=== PATIENT | female | born 1940 | race Caucasian/White ===

== ENCOUNTER 2023-10-26 09:46 | Inpatient (IN) | payer OTHER ==
--- OUTSIDE RECORDS SUMMARY | 2023-10-26 10:06 | XMS REPORT | Continuity of Care Document ---
Author Name Unknown Address [address] [facility] [address] [place] [address] [facility] Address [address] [facility] [address] [place] [address] Care Team Providers Care Laydown Machine Operator Name Role Phone Mimi Blakely MD Primary Care Physician + [phone] MATTHEW CANCINO Attending Clinician Angela JACOB Silva Attending Clinician Unavaila JOE Alonso Attending Clinician UnaLLOYD Wolf RP Attending Clinician Unavailable Mita Ngo LCSW Attending Clinician [phone] Mimi Blakely MD Attending Clinician [phone] JM ESPINAL Attending Clinician Unavailable JM ESPINAL Attending Clinician Unavailable Gibran Chappell MD Attending Clinician +[phone] MIMI BLAKELY Attending Clinician Unavailable SAMMY TRIPP Attending Clinician Unavaila Graciela Aragon Attending Clinician Unavailab LYNSEY Martinez Attending Clinician Unavailable Lynsey Bell MD Attending Clinician [phone] Lloyd Loza MD, Rp Attending Clinician [phone] TOMAS MARTIN Attending Clinician Unavailab Tomas Smith DO Attending Clinician +[phone] Fellow, Pulmonary Attending Clinician UnavailDelbert Buchanan MD Attending Clinician [phone] DELBERT TAYLOR Attending Clinician Unava ilable Doctor Unassigned, [place] Attending Clinician U yuval Simpson MD, Cat Attending Clinician [phone] CIELO KONG Attending Clinician Unavail able Dilan OLSON, Cielo Camargo Attending Clinician [phone] Joe Bird Attending Clinician [phone] Greg Jimenez MD Attending Clinician [phone] GREG JIMENEZ Attending Clinician Unavailable ABNER OTERO Attending Clinician Unavailable Moshe RT, Carmen C Attending Clinician Unavailab damon Otero MD, Abner Attending Clinician [phone] Pcp-Lab Attending Clinician Unavailable Tomasa DIAZ, Rukhsana Attending Clinician [phone] Elissa Handy Attending Clinician [phone] SAMUEL BREEN Attending Clinician Unavailable Samuel Breen MD Attending Clinician +[phone] MICHAEL NUNEZ Attending Clinician Unavailable Michael Winston Attending Clinician [phone] ARIANNE CHAPPELL Attending Clinician Unavailable Helen Deutsch MA Attending Clinician Unavaila lashell Testing, [facility] Pulmonary Function Attending Clinic felix Dorman RN, Caemlia Ellsworth Attending Clinician Unavailab Laith Patel DO Attending Clinician [phone] Elidia Solomon DO Attending Clinician +[phone] RUKHSANA RANDOLPH Attending Clinician Unavailable QUINN DAMON Attending Clinician Unavailab Arianne Mcdaniel Attending Clinician +[phone] Sammy Tripp MD Attending Clinician + [phone] Quinn Damon MD Attending Clinician [phone] Roxana Lezama Attending Clinician +[phone] ROXANA IQBAL Attending Clinician Unavailable SONYA QUICK Attending Clinician Unavaila Milo Evans MD Attending Clinician [phone] Nikhil Juarez MD Attending Clinician [phone] NIKHIL JUAREZ Attending Clinician Unavailab ELISSA Acosta Attending Clinician Unavailable Sonia OLSON, Nazario Ramsey Attending Clinician [phone] Zahira MAURER, Agatha Paul Attending Clinician Unavail able John OLSON, Geetha Attending Clinician Unavailable FARHAT YBARRA Attending Clinician Unavailable Allen OLSON, Devante Attending Clinician [phone] Farhat Ybarra MD Attending Clinician +[phone] Carlos SUN, Stacia Garcia Attending Clinician Unava ilable NICOLE DAWSON Attending Clinician Unavailbill Dawson MD, Nicole Attending Clinician + [phone] MARCY WILLETT Attending Clinician Unavailbill Chappell FLOOR POLISHER, Linda Attending Clinician [phone] LINDA CHAPPELL Attending Clinician Unavailable Only, Pcp Test Attending Clinician Unavailable Karey OLSON, Ronen Driver Attending Clinician + [phone] RONEN EDNE Attending Clinician Unavailable [facility]-Lab Attending Clinician Unavailable Vls-Lab Attending Clinician Unavailable Jacob Mao MD Attending Clinician [phone] Lilia Palacio Attending Clinician [phone] Nguyen OLSON, Sonya Cortez Attending Clinician [phone] Marcy Long MD Attending Clinician Unav ailable 2, Lilo Mda Procedure Rm Attending Clinician Unav ailable Anatoly Ramos MD Attending Clinician + [phone] JORGE FERRARI Attending Clinician Unavail able Barak OLSON, Matthew Hurtado Attending Clinician Camelia Montez RN Attending Clinician Unavaila ble ANATOLY RAMOS Attending Clinician UnavailTONA Staley JR Attending Clinician Unavaila ble Faculty, Vascular Surg Attending Clinician Unava ilable 1, [facility] Oncology Linac Attending Clinician Un available Nacho OLSON, Holden Attending Clinician [phone], [facility] Adult Infusion Nurse Attending Clinician Unavailable Mi Henson Attending Clinician +[phone] Helen Ortiz MD Attending Clinician [phone] Nurse, [facility] Infusion Attending Clinician Unavaila ble Only, [facility] Test Attending Clinician Unavailable Sharda Becerra RNnifer S. Attending Clinician Unav Graciela Ram Attending Clinician Unavailbill dos santos Physics, halfway Rad Onc Attending Clinician Unavail able Unknown, Attending Attending Clinician Unavailab Jorge Lo DO Attending Clinician [phone] Kaylyn Manriquez MD Attending Clinician +[phone] KAYLYN MANRIQUEZ Attending Clinician Unavailable Martell Fontenot MD Attending Clinician [phone] Kamlesh Duncan MD Attending Clinician +[phone] Fercho Vivas MD Attending Clinician [phone], [facility] Adult Infusion Nurse Attending Clinician Unavailable [facility], [facility] Lab Main Attending Clinician UnavailJesse Paz MD Attending Clinician Unavailab KAMLESH Vázquez Attending Clinician Unavailable UNKNOWN, ATTENDING Attending Clinician Unavailab Mia Garcia MD Attending Clinician +[phone] MIA SALAZAR Attending Clinician Unavailable ANASTASIA NUNEZ Attending Clinician Unavailable Tuan Jordan MD Attending Clinician +[phone] Anastasia Nunez MD Attending Clinician +[phone] , [facility] Surg Spec Procedure Attending Clinician Unavailable PRACHI BERG Attending Clinician Unavailable Prachi Sargent Attending Clinician [phone] Tara Richards MD Attending Clinician +[phone] VIVIANA FITZPATRICK Attending Clinician Unava ilable Viviana Fitzpatrick MD Attending Clinician +[phone] Raffi Brewer MD Attending Clinician +[phone] RAFFI BREWER Attending Clinician UnavailCarlton Stephenson MD Attending Clinician +[phone] ALESSANDRO CARBAJAL Attending Clinician UnavaMATTHEW Figueredo Admitting Clinician Angela JACOB Silva Admitting Clinician Unavaila TOMAS Aviles Admitting Clinician Unavailab SAMUEL Escobedo Admitting Clinician Unavailable Samuel Breen MD Admitting Clinician [phone] JM ESPINAL Admitting Clinician Unavailable Elidia Solomon DO Admitting Clinician ELIDIA SOLOMON Admitting Clinician Unavailable DEVANTE VILLA Admitting Clinician Unavailable Devante Villa MD Admitting Clinician DAGO ELOLidia EDDY Admitting Clinician Unavailable NICOLE DAWSON Admitting Clinician Unavailabl e Nicole Dawson MD Admitting Clinician LINDA CHAPPELL Admitting Clinician Unavailable Jacob Mao MD Admitting Clinician +[phone] PRACHI BERG Admitting Clinician Unavailable NIKHIL JUAREZ Admitting Clinician Unavailab RAFFI Pearce Admitting Clinician Unavailabl e Payers Payer Name Policy Type Policy Number Effective Date Expirati on Date Source [employer] [id number] 2011 00:00:00 Problems Condition Name Condition Details Condition Category Status Onset Date Resolution Date Last Treatment Date Treating Clinician Comments Source Abnormal stress echo Abnormal stress echo Disease Active 2022-05 0- 00:00: 00 [facility] Tachycardi a Tachycardi a Disease Active 11-08 00:00: 00 [facility] Intraventr icular conduction defect Intraventr icular conduction defect Disease Active 11-08 00:00: 00 [facility] Other hyperlipid emia Other hyperlipid emia Disease Active 7 00:00: 00 [facility] Acute on chronic respirator y failure with hypoxia Acute on chronic respirator y failure with hypoxia Disease Active 11-01 00:00: 00 [facility] Acute respirator y failure with hypoxia Acute respirator y failure with hypoxia Disease Active 2- 00:00: 00 [facility] Primary hypertensi on Primary hypertensi on Disease Active 2021-05- 00:00: 00 [facility] 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 Added automatic ally from request for surgery [id number] [facility] Total, mature age-relate d cataract Total, mature age-relate d cataract Disease Active 10-01 00:00: 00 Overview: Formattin g of this note might be different from the original. Added automatic ally from request for surgery [id number] [facility] Urothelial carcinoma of bladder Urothelial carcinoma of bladder Disease Active 2019-05 1-10 00:00: 00 Overview: Formattin g of this note might be different from the original. 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 Disease Active 01-27 00:00: 00 [facility] Long-term use of high-risk medication Long-term use of high-risk medication Disease Active 01-27 00:00: 00 [facility] Therapeuti c drug monitoring Therapeuti c drug monitoring Disease Active 2014-05 0 00:00: 00 [facility] Pain, joint, multiple sites Pain, joint, multiple sites Disease Active 2014-05 0 00:00: 00 [facility] PAD (periphera l artery disease) PAD (periphera l artery disease) Disease Active 01-07 00:00: 00 [facility] Skin lesions Skin lesions Disease Active 09-05 00:00: 00 [facility] Difficulty with activities of daily living Difficulty with activities of daily living Disease Active 06-06 00:00: 00 [facility] Limitation of joint motion of wrist, left Limitation of joint motion of wrist, left Disease Active 06-06 00:00: 00 [facility] Wrist swelling, left Wrist swelling, left Disease Active 06-06 00:00: 00 [facility] DRUJ (distal radioulnar joint) arthrosis, primary, left DRUJ (distal radioulnar joint) arthrosis, primary, left Disease Active 06-06 00:00: 00 [facility] Chronic wrist pain, left Chronic wrist pain, left Disease Active 06-06 00:00: 00 [facility] Tobacco use Tobacco use Disease Active 05-03 00:00: 00 [facility] 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 Disease Active 2013-05 00:00: 00 [facility] Senile nuclear sclerosis, bilateral Senile nuclear sclerosis, bilateral Disease Active 2013-05 00:00: 00 [facility] Maculopath y Maculopath y Disease Active 2013-05 00:00: 00 [facility] 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, dry, 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, dry, both eyes Disease Active 2013-05 00:00: 00 [facility] Family history of autoimmune disorder Family history of autoimmune disorder Disease Active 12-25 00:00: 00 [facility] History of gout History of gout Disease Active 12-25 00:00: 00 [facility] NICK positive NICK positive Disease Active 12-25 00:00: 00 [facility] Iron deficiency anemia, unspecifie d Iron deficiency anemia, unspecifie d Disease Active [facility] Rheumatoid arthritis Rheumatoid arthritis Disease Resolve d 2013-05 00:00: 00 2017-01-27 00:00:00 2021-11-15 00:32:56 [facility] Inflammato ry arthritis Inflammato ry arthritis Disease Resolve d 12-25 00:00: 00 2017-01-27 00:00:00 2017-01-27 10:51:48 [facility] Polyarticu lar arthritis Polyarticu lar arthritis Disease Resolve d 12-25 00:00: 00 2017-01-27 00:00:00 2017-01-27 10:52:28 [facility] Long-term use of Plaquenil Long-term use of Plaquenil Disease Resolve d 2013-05 00:00: 00 2014-09-05 00:00:00 2014-09-05 11:21:32 [facility] Allergies, Adverse Reactions, Alerts Allergy Name Allergy Type Status Severity Reaction(s) Onset Date Inactive Date Treating Clinician Comments Source HYDROXYC HLOROQUI NE DRUG INGREDI Active Other-Cmnt 05-12 00:00: 00 [facility] Hydroxyc hloroqui ne Propensi ty to adverse reaction s Active Other - See comments 05-12 00:00: 00 Ophthalmo logist has recommend ed against Hydroxych loroquine . [facility] Sulfa (Sulfona mide Antibiot ics) Propensi ty to adverse reaction s Active Rash 12-25 00:00: 00 [facility] SULFA (SULFONA MIDE ANTIBIOT ICS) Drug Class Active Rash 12-25 00:00: 00 [facility] CODEINE DRUG INGREDI Active Other-Cmnt 12-03 00:00: 00 [facility] Codeine Propensi ty to adverse reaction s Active Other - See comments 2014-0 8- 00:00: 00 headaches [facility] Social History Social Habit Start Date Stop Date Quantity Comments Source History SDOH Social Connections Get Together [facility] History SDOH Social Connections [facility] SDOH Social Connections Membership [facility] History SDOH Social Connections Meetings [facility] Gender identity [facility] Sexual [facility] Alcoholic beverage intake 2023-08-11 00:00:00 2023-08-11 00:00:00 0 /d [facility] Alcohol intake 2023-08-11 00:00:00 2023-08-11 00:00:00 0 /d [facility] History of Social function 2023-06-07 00:00:00 2023-06-07 00:00:00 [facility] History SDOH Social Connections Phone 2022-11-04 00:00:00 2022-11-04 00:00:00 1 [facility] History SDOH Social Connections Living 2022-11-04 00:00:00 2022-11-04 00:00:00 8 [facility] History SDOH Physical Activity DPW 2022-11-04 00:00:00 2022-11-04 00:00:00 0 [facility] History SDOH Physical Activity MPS 2022-11-04 00:00:00 2022-11-04 00:00:00 0 [facility] History SDOH Financial 2022-11-04 00:00:00 2022-11-04 00:00:00 5 [facility] History SDOH Food Worry 2022-11-04 00:00:00 2022-11-04 00:00:00 1 [facility] History SDOH Food Scarcity 2022-11-04 00:00:00 2022-11-04 00:00:00 1 [facility] History SDOH Transport Med 2022-11-04 00:00:00 2022-11-04 00:00:00 2 [facility] History SDOH Transport Non-Med 2022-11-04 00:00:00 2022-11-04 00:00:00 2 [facility] History SDOH Housing Unable to Pay 2022-11-04 00:00:00 2022-11-04 00:00:00 2 [facility] History SDOH Housing Places Lived 2022-11-04 00:00:00 2022-11-04 00:00:00 1 [facility] History SDOH Housing Homeless Last Year 2022-11-04 00:00:00 2022-11-04 00:00:00 2 [facility] History SDOH Alcohol Frequency 2022-11-04 00:00:00 2022-11-04 00:00:00 1 [facility] Cigarettes smoked current (pack per day) - Reported 2022-11-03 00:00:00 2022-11-03 00:00:00 [facility] Cigarette pack-years 2022-11-03 00:00:00 2022-11-03 00:00:00 [facility] Tobacco use and exposure 2022-11-03 00:00:00 2022-11-03 00:00:00 Smokeless tobacco non-user [facility] Exposure to SARS-CoV-2 (event) 2022-08-23 00:00:00 2022-09-02 13:02:00 Not sure [facility] History SDOH Alcohol Std Drinks 2022-06-10 00:00:00 2022-06-10 00:00:00 0 [facility] History SDOH Alcohol Binge 2022-06-10 00:00:00 2022-06-10 00:00:00 1 [facility] Tobacco Comment 2022-06-09 00:00:00 2022-06-09 00:00:00 Periodic non-smoker, last cigarette 3 days ago. [facility] Alcohol Comment 2019-11-27 00:00:00 2019-11-27 00:00:00 social drinking [facility] History of tobacco use 1969-08-22 00:00:00 2019-08-23 00:00:00 Cigarette Smoker [facility] Sex assigned at 1940 00:00:00 1940 00:00:00 [facility] Smoking Status Start Date Stop Date Source Ex-smoker 2022-11-03 00:00:00 2022-11-03 00:00:00 [facility] Occasional tobacco smoker 2020-07-02 00:00:00 [facility] Smokes tobacco daily 2019-10-25 00:00:00 [facility] Medications Ordered Medication Name Filled Medication Name Start Date Stop Date Current Medication? Ordering Clinician Indication Dosage Frequency Signature (SIG) Comments Components Source levoFLOXaci n 500 mg tablet 10-17 00:00: 00 Yes 500mg Take 1 tablet by mouth every 24 (twenty-fo ur) hours. [facility] cephALEXin 500 mg capsule 10-12 00:00: 00 10-17 00:00 :00 No 500mg Take 1 capsule by mouth in the morning and 1 capsule at noon and 1 capsule in the evening. Do all this for 7 days. [facility] busPIRone 10 mg tablet 10-02 00:00: 00 Yes [id number] 20mg Take 2 tablets by mouth in the morning and 2 tablets at noon and 2 tablets in the evening. [facility] ipratropium -albuteroL (DUONEB) 0.5 mg-3 mg(2.5 mg base)/3 mL nebulizer solution 3 mL 09-06 21:00: 00 09-06 20:08 :00 No 3mL 3 mL, Inhalation , ONCE, 1 dose, On Tue09/07/23 at 1600, Routine [facility] BUSPIRONE 10 mg tablet 09-04 00:00: 00 10-02 00:00 :00 No [id number] TAKE 1 TABLET BY MOUTH 3 TIMES A DAY NEEDED FOR ANXIETY/PA JAYLEN ATTACK [facility] albuterol 90 mcg/actuati on inhaler 08-21 00:00: 00 Yes [id number] 2{puff} Inhale 2 Puffs every 4 (four) hours as needed for Wheezing or Shortness of Breath. [facility] tetrahydroz oline 0.05 % ophthalmic solution 08-10 14:05: 31 Yes 1[drp] Take 1 Drop in the morning and 1 Drop in the evening. [facility] VIT A/VIT C/VIT E/ZINC/NAHUM ER (ICAPS AREDS ORAL) 08-10 14:05: 15 Yes Take by mouth daily. [facility] SERTraline 100 mg tablet 08-10 00:00: 00 Yes [id number] 150mg Take 1.5 tablets by mouth in the morning. [facility] BUSPIRONE 10 mg tablet 08-07 00:00: 00 Yes [id number] TAKE 1 TABLET BY MOUTH 3 TIMES A DAY NEEDED FOR ANXIETY/PA JAYLEN ATTACK [facility] VIT A/VIT C/VIT E/ZINC/NAHUM ER (ICAPS AREDS ORAL) 08-04 10:28: 47 Yes Take by mouth daily. [facility] tetrahydroz oline 0.05 % ophthalmic solution 08-04 10:28: 47 Yes 1[drp] Take 1 Drop in the morning and 1 Drop in the evening. [facility] albuterol 2.5 mg/0.5 mL nebulizer solution 08-04 00:00: 00 Yes [id number] 2.5mg Inhale 0.5 mL every 6 (six) hours as needed for Wheezing. [facility] VIT A/VIT C/VIT E/ZINC/NAHUM ER (ICAPS AREDS ORAL) 07-14 10:39: 46 Yes Take by mouth daily. [facility] tetrahydroz oline 0.05 % ophthalmic solution 07-14 10:39: 46 Yes 1[drp] Take 1 Drop in the morning and 1 Drop in the evening. [facility] busPIRone 10 mg tablet 15 00:00: 00 08-07 00:00 :00 No [id number] 10mg Take 1 tablet by mouth 3 (three) times daily as needed (Anxiety/p anic attack). [facility] BUSPIRONE 5 mg tablet 223 00:00: 00 07-14 00:00 :00 No [id number] TAKE ONE TABLET BY MOUTH 3 (THREE) TIMES DAILY NEEDED ( ANXIETY ATTACK) [facility] SERTraline 100 mg tablet 06-13 00:00: 00 08-10 00:00 :00 No [id number] 100mg Take 1 tablet by mouth in the morning. [facility] ipratropium -albuteroL (DUONEB) 0.5 mg-3 mg(2.5 mg base)/3 mL nebulizer solution 3 mL 06-10 18:00: 00 Yes 3mL 3 mL, Inhalation , QID, First dose on Tue06/10/23 at 1200, Until Discontinu ed, Routine [facility] hydrOXYzine (ATARAX) tablet 25 mg 06-10 18:00: 00 06-10 18:19 :00 No 25mg 25 mg, Oral, ONCE, 1 dose, On Tue06/10/23 at 1200, ANH [facility] leflunomide (ARAVA) 20 mg tablet 06-10 00:00: 00 Yes [id number] 20mg Take 1 tablet by mouth in the morning. [facility] VIT A/VIT C/VIT E/ZINC/NAHUM ER (ICAPS AREDS ORAL) 06-07 11:02: 10 Yes Take by mouth daily. [facility] atorvastati n 40 mg tablet 06-03 00:00: 00 Yes TAKE ONE TABLET BY MOUTH AT BEDTIME [facility] famotidine 20 mg tablet 05-27 00:00: 00 Yes [id number] 20mg Take 1 tablet by mouth in the morning. [facility] busPIRone 5 mg tablet 05-27 00:00: 00 06-24 00:00 :00 No [id number] 5mg Take 1 tablet by mouth 3 (three) times daily as needed (anxiety attack). [facility] meloxicam 7.5 mg tablet 05-24 00:00: 00 09-21 04:59 :00 No [id number] 9105 7.5mg Take 1 tablet by mouth once daily as needed for Pain (scale 7-10) or Pain (scale 4-6) for up to 120 days. [facility] metoprolol tartrate 100 mg tablet 2022-05 00:00: 00 Yes TAKE ONE TABLET BY MOUTH EVERY MORNING AND ONE IN THE EVENING [facility] VIT A/VIT C/VIT E/ZINC/NAHUM ER (ICAPS AREDS ORAL) 2022-05 10:54: 26 Yes Take by mouth daily. [facility] tetrahydroz oline 0.05 % ophthalmic solution 2022-05 10:54: 20 Yes 1[drp] Take 1 Drop in the morning and 1 Drop in the evening. [facility] SERTraline 100 mg tablet 2022-05 00:00: 00 06-13 00:00 :00 No [id number] 100mg Take 1 tablet by mouth in the morning. [facility] aflibercept (EYLEA) intravitrea l syringe 2 mg 2022-05 17:03: 00 03-07 17:03 :00 No [id number] 2mg 2 mg, Intravitre al, ONCE PRN, 1 dose, Starting on Tue03/07/23 at 1103, Until Tue03/07/23 at 1103, Routine [facility] albuterol (PROVENTIL) 2.5 mg /3 mL (0.083 %) nebulizer solution 2.5 mg 2022-05 01:00: 00 Yes 2.5mg 2.5 mg, Inhalation , QID, First dose on Tue02/15/23 at 1999, Until Discontinu ed, Routine [facility] ipratropium (ATROVENT) 0.02 % nebulizer solution 0.5 mg 2022-05 01:00: 00 Yes .5mg 0.5 mg, Inhalation , QID, First dose on Tue02/15/23 at 1999, Until Discontinu ed, Routine [facility] ipratropium -albuteroL (DUONEB) 0.5 mg-3 mg(2.5 mg base)/3 mL nebulizer solution 3 mL 2022-05 22:30: 00 02-15 21:31 :00 No 3mL 3 mL, Inhalation , ONCE, 1 dose, On Tue02/15/23 at 1730, Routine [facility] acetaminoph en (TYLENOL) tablet 650 mg 2022-05 18:16: 31 Yes [id number] 650mg 650 mg, Oral, Q6HPRN, Starting on Tue02/15/23 at 1316, Until Discontinu ed, Routine, Pain (scale 1-3) [facility] VIT A/VIT C/VIT E/ZINC/NAHUM ER (ICAPS AREDS ORAL) 2022-05 17:01: 00 Yes Take by mouth daily. [facility] tetrahydroz oline 0.05 % ophthalmic solution 2022-05 17:01: 00 Yes 1[drp] Take 1 Drop in the morning and 1 Drop in the evening. [facility] iopamidol (ISOVUE 370-500 mL) injection 2022-05 16:45: 55 02-15 17:05 :37 No ONCE INTRA PROCEDURE, Starting on Tue02/15/23 at 1145, Until Tue02/15/23 at 1205, Routine, CV Intraproce dure [facility] hydralAZINE (APRESOLINE ) injection 2022-05 16:30: 57 02-15 17:05 :37 No ONCE INTRA PROCEDURE, Starting on Tue02/15/23 at 1130, Until Tue02/15/23 at 1205, STAT, CV Intraproce dure [facility] lidocaine 1% (PF) (XYLOCAINE) injection 2022-05 15:58: 44 02-15 17:05 :37 No ONCE INTRA PROCEDURE, Starting on Tue02/15/23 at 1058, Until Tue02/15/23 at 1205, Routine, CV Intraproce dure [facility] midazolam (VERSED) injection 2022-05 15:53: 30 02-15 17:05 :37 No ONCE INTRA PROCEDURE, Starting on Tue02/15/23 at 1053, Until Tue02/15/23 at 1205, Routine, CV Intraproce dure [facility] FENTanyl PF (SUBLIMAZE (PF)) injection 2022-05 15:53: 20 02-15 17:05 :37 No ONCE INTRA PROCEDURE, Starting on Tue02/15/23 at 1053, Until Tue02/15/23 at 1205, Routine, CV Intraproce dure [facility] aspirin chewable tablet 81 mg 2022-05 13:30: 00 02-15 12:44 :00 No [id number] 81mg 81 mg, Oral, ONCE, 1 dose, On Tue02/15/23 at 0830, ANH [facility] ipratropium 17 mcg/actuati on inhaler 2022-05 00:00: 00 Yes [id number] 2{puff} Inhale 2 Puffs 4 (four) times daily. [facility] NaCl 0.9% (NS) IV infusion 250 mL 01-25 17:30: 00 Yes [id number] 250mL at 50 mL/hr, IV Infusion, CONTINUOUS , Starting on Tue01/25/23 at 1230, Until Discontinu ed, Routine
To keep vein open
[facility] metoprolol (LOPRESSOR) injection 5 mg 01-25 17:15: 00 01-25 17:00 :00 No [id number] 5mg 5 mg, Slow IV Push, ONCE, 1 dose, On Tue01/25/23 at 1215, Routine [facility] DOBUTamine (DOBUTREX) 250 mg/250 mL RTU infusion 01-25 16:28: 38 Yes [id number] 5ug/kg/ min 5 mcg/kg/min ?59.9 kg (17.97 mL/hr), IV Infusion, TITRATE, MAP Goal > or = 65 mmHg, Titrate per admin instructio ns, Starting on Tue01/25/23 at 1128
No te and document the precise time that this is 3. ac complished . Begin the count with the EKG system's DSE applicatio n program. This is time zero.&nbsp ; At 2 minutes and 30 seconds after beginning the initial dosing, acquire parasterna l long axis and parasterna l short axis view at papillary level, apical 4 chamber, 2 chamber and apical long axis view, and BP At the 3 minute interval, simultaneo usly obtain a 12 lead EKG, heart rate and 02 saturation and increase the Dobutamine infusion to 10 mcg/kg/min . At the 5 minutes and 30 second interval, acquire parasterna l long axis and parasterna l short&nbsp ;axis view at papillary level, apical 4 chamber, 2 chamber and apical long axis view and measure BP. At the 6 minute interval, simultaneo usly obtain a 12 lead EKG, heart rate and 02saturati on an d increase the Dobutamine infusion to 20 mcg/kg/min . At the 8 minutes and 30 second interval, acquire parasterna l long axis and parasterna l short&nbsp ;axis view at papillary level, apical 4 chamber, 2 chamber and apical long axis view and measure BP. At the 9 minute interval, simultaneo usly obtain a 12 lead EKG, heart rate and 02 saturation and increase the Dobutamine infusion to 30 mcg/kg/min . (see Adjunctive Therapy)&n bsp; At the 11 minutes and 30 second interval, acquire parasterna l long axis and parasterna l short&nbsp ;axis view at papillary level, apical 4 chamber, 2 chamber and apical long axis view and m easure BP. At the 12 minute interval, simultaneo usly obtain a 12 lead EKG, heart rate and 02 saturation and increase the Dobutamine infusion to 40 mcg/kg/min . (see Adjunctive Therapy&nb sp; At the 14 minutes and 30 second interval, acquire parasterna l long axis and parasterna l short&nbsp ;axis view at papillary level, apical 4 chamber, 2 chamber and apical long axis view and m easure BP. At the 15 minute interval, simultaneo usly obtain a 12 lead EKG, heart rate and 02 saturation and terminate the Dobutamine infusion. (see Adjunctive Therapy)<b r> [facility] aflibercept (EYLEA) intravitrea l syringe 2 mg 01-24 17:33: 00 01-24 17:33 :00 No [id number] 2mg 2 mg, Intravitre al, ONCE PRN, 1 dose, Starting on Tue01/24/23 at 1233, Until Tue01/24/23 at 1233, Routine [facility] leflunomide (ARAVA) 20 mg tablet 01-21 00:00: 00 06-10 00:00 :00 No [id number] 20mg Take 1 tablet by mouth in the morning. [facility] foLIC acid 1 mg tablet 01-13 00:00: 00 Yes [id number] 3mg Take 3 tablets by mouth in the morning. [facility] VIT A/VIT C/VIT E/ZINC/NAHUM ER (ICAPS AREDS ORAL) 01-11 12:59: 57 Yes Take by mouth daily. [facility] tetrahydroz oline 0.05 % ophthalmic solution 01-11 12:59: 57 Yes 1[drp] Take 1 Drop in the morning and 1 Drop in the evening. [facility] VIT A/VIT C/VIT E/ZINC/NAHUM ER (ICAPS AREDS ORAL) 12-22 11:00: 59 Yes Take by mouth daily. [facility] tetrahydroz oline 0.05 % ophthalmic solution 12-22 11:00: 56 Yes 1[drp] Take 1 Drop in the morning and 1 Drop in the evening. [facility] SERTraline 50 mg tablet 12-22 00:00: 00 03-28 00:00 :00 No [id number] Take 1 tablet daily for 30 days and then take 1.5 tablets daily. [facility] aflibercept (EYLEA) intravitrea l syringe 2 mg 12-16 17:13: 00 12-16 17:13 :00 No [id number] 2mg 2 mg, Intravitre al, ONCE PRN, 1 dose, Starting on Tue12/16/22 at 1213, Until Tue12/16/22 at 1213, Routine [facility] VIT A/VIT C/VIT E/ZINC/NAHUM ER (ICAPS AREDS ORAL) 12-15 15:11: 47 Yes Take by mouth daily. [facility] tetrahydroz oline 0.05 % ophthalmic solution 12-15 15:11: 47 Yes 1[drp] Take 1 Drop in the morning and 1 Drop in the evening. [facility] VIT A/VIT C/VIT E/ZINC/NAHUM ER (ICAPS AREDS ORAL) 11-15 16:15: 02 Yes Take by mouth daily. [facility] tetrahydroz oline 0.05 % ophthalmic solution 11-15 16:15: 02 Yes 1[drp] Take 1 Drop in the morning and 1 Drop in the evening. [facility] fluticasone propionate 110 mcg/actuati on inhaler 11-15 00:00: 00 12-16 04:59 :00 No [id number] 2{puff} Inhale 2 Puffs every 12 (twelve) hours for 30 days. [facility] melatonin (MELATIN) tablet 3 mg 11-12 02:00: 00 Yes 3mg 3 mg, Oral, QHS, First dose on Tue11/11/22 at 2100, Until Discontinu ed, Routine [facility] metoprolol tartrate (LOPRESSOR) tablet 100 mg 11-08 01:00: 00 Yes 100mg 100 mg, Oral, BID, First dose (after last modificati on) on Tue11/07/22 at 2000, Until Discontinu ed, Routine [facility] azithromyci n (ZITHROMAX) tablet 500 mg 11-04 00:00: 00 11-04 01:04 :00 No 500mg 500 mg, Oral, ONCE, 1 dose, On Tue11/03/22 at 1900, Routine
Reason for Anti-Infec tive: Empiric Therapy for Suspected Infection< br>Empiric Therapy Site: Respirator y
Durat ion of therapy: 72 hours [facility] atorvastati n (LIPITOR) tablet 40 mg 11-03 02:00: 00 Yes 40mg 40 mg, Oral, QHS, First dose on Tue11/02/22 at 2100, Until Discontinu ed, Routine [facility] guaiFENesin (FENESIN IR) tablet 400 mg 11-03 01:00: 00 Yes 400mg 400 mg, Oral, Q4H, First dose on Tue11/02/22 at 2000, Until Discontinu ed, Routine [facility] SERTraline (ZOLOFT) tablet 25 mg 11-02 14:00: 00 Yes 25mg 25 mg, Oral, DAILY, First dose on Tue11/02/22 at 0900, Until Discontinu ed, Routine [facility] leflunomide (ARAVA) tablet 20 mg 11-02 14:00: 00 Yes 20mg 20 mg, Oral, DAILY, First dose on Tue11/02/22 at 0900, Until Discontinu ed, Routine [facility] foLIC acid (FOLATE) tablet 3 mg 11-02 14:00: 00 Yes 3mg 3 mg, Oral, DAILY, First dose on Tue11/02/22 at 0900, Until Discontinu ed, Routine [facility] aspirin chewable tablet 81 mg 11-02 14:00: 00 Yes 81mg 81 mg, Oral, DAILY, First dose on Tue11/02/22 at 0900, Until Discontinu ed, Routine [facility] enoxaparin (LOVENOX) injection 40 mg 11-02 14:00: 00 Yes 40mg 40 mg, Subcutaneo us, DAILY, First dose on Tue11/02/22 at 0900, Until Discontinu ed, Routine [facility] predniSONE (DELTASONE) tablet 40 mg 11-02 14:00: 00 11-06 13:52 :00 No 40mg 40 mg, Oral, DAILY, 5 doses, First dose on Tue11/02/22 at 0900, Last dose on Tue11/06/22 at 0900, Routine [facility] metoprolol tartrate (LOPRESSOR) tablet 50 mg 11-02 13:00: 00 11-07 19:49 :17 No 50mg 50 mg, Oral, BID, First dose on Tue11/02/22 at 0800, Until Discontinu ed, Routine [facility] cefTRIAXone (ROCEPHIN) 1,000 mg in NaCl 0.9% (NS) 100 mL MINI-BAG 11-02 10:45: 00 11-04 10:24 :00 No 1000mg 1,000 mg, IV Piggyback, Q24H ABX, 3 doses, First dose on Tue11/02/22 at 0545, Last dose on Tue11/04/22 at 0545, Administer over 30 Minutes, 100 mL
Reas on for Anti-Infec tive: Documented Infection< br>Documen arlen Infection Site: Respirator y
Durat ion of Therapy: 7 days [facility] VIT A/VIT C/VIT E/ZINC/NAHUM ER (ICAPS AREDS ORAL) 11-02 04:39: 36 Yes Take by mouth daily. [facility] tetrahydroz oline 0.05 % ophthalmic solution 11-02 04:39: 36 Yes 1[drp] Take 1 Drop in the morning and 1 Drop in the evening. [facility] ipratropium -albuteroL (DUONEB) 0.5 mg-3 mg(2.5 mg base)/3 mL nebulizer solution 3 mL 11-02 01:00: 00 Yes 3mL 3 mL, Inhalation , Q4H, First dose on Tue11/01/22 at 2000, Until Discontinu ed, Routine [facility] azithromyci n (ZITHROMAX) 500 mg in NaCl 0.9% (NS) 250 mL VIAL-MATE IV piggyback 11-02 00:00: 00 2023- 07-05 17:24 :34 No 500mg 500 mg, IV Piggyback, Q24H ABX, 3 doses, First dose on Tue11/01/22 at 1900, Last dose on Tue11/03/22 at 1900, Administer over 60 Minutes, 250 mL
Reas on for Anti-Infec tive: Empiric Therapy for Suspected Infection< br>Empiric Therapy Site: Respirator y
Durat ion of therapy: 72 hours [facility] guaiFENesin 100 mg/5 mL solution 200 mg 11-01 22:52: 12 Yes 200mg 200 mg, Oral, Q6HPRN, Starting on Tue11/01/22 at 1752, Until Discontinu ed, Routine, Cough [facility] acetaminoph en (TYLENOL) tablet 650 mg 11-01 22:51: 18 Yes 650mg 650 mg, Oral, Q6HPRN, Starting on Tue11/01/22 at 1751, Until Discontinu ed, Routine, Pain (scale 1-3) [facility] ipratropium -albuteroL (DUONEB) 0.5 mg-3 mg(2.5 mg base)/3 mL nebulizer solution 3 mL 11-01 21:30: 00 11-01 20:28 :00 No 3mL 3 mL, Inhalation , ONCE, 1 dose, On Tue11/01/22 at 1630, Routine [facility] methylpredn isolone sod succ (SOLU-MEDRO L) injection 125 mg 11-01 21:15: 00 11-01 20:32 :00 No 125mg 125 mg, Intravenou s, ONCE NOW, 1 dose, On Tue11/01/22 at 1615, Routine [facility] magnesium sulfate in water 2 gram/50 mL (4 %) infusion 2 g 11-01 21:15: 00 11-01 21:32 :00 No 2g 2 g, IV Piggyback, Administer over 60 Minutes, ONCE, 1 dose, On Tue11/01/22 at 1615, Routine [facility] aflibercept (EYLEA) intravitrea l syringe 2 mg 11-01 17:13: 42 11-01 17:13 :00 No [id number] 2mg 2 mg, Intravitre al, ONCE PRN, 1 dose, Starting on 11/01/22 at 1213, Until Tue11/01/22 at 1213, Routine [facility] albuterol 2.5 mg /3 mL (0.083 %) nebulizer solution 10-19 00:00: 00 Yes [id number] 2.5mg Inhale 3 mL every 4 (four) hours as needed for Wheezing or Shortness of Breath. [facility] tiotropium- olodateroL (STIOLTO RESPIMAT) 2.5-2.5 mcg/actuati on Mist 10-19 00:00: 00 Yes [id number] 2{puff} Inhale 2 Puffs in the morning. [facility] albuterol 90 mcg/actuati on inhaler 10-19 00:00: 00 08-21 00:00 :00 No [id number] 2{puff} Inhale 2 Puffs every 4 (four) hours as needed for Wheezing or Shortness of Breath. [facility] SERTraline 25 mg tablet 10-01 00:00: 00 12-22 00:00 :00 No [id number] 25mg Take 1 tablet by mouth in the morning. [facility] aflibercept (EYLEA) intravitrea l syringe 2 mg 09-30 18:54: 12 09-30 18:54 :00 No [id number] 2mg 2 mg, Intravitre al, ONCE PRN, 1 dose, Starting on Sandra 09/30/22 at 1354, Until Sandra 09/30/22 at 1354, Routine [facility] leflunomide (ARAVA) 20 mg tablet -16 00:00: 00 01-21 00:00 :00 No 20mg Take 1 tablet by mouth in the morning. [facility] atorvastati n 40 mg tablet 5-05 00:00: 00 06-03 00:00 :00 No TAKE ONE TABLET BY MOUTH AT BEDTIME [facility] aflibercept (EYLEA) intravitrea l syringe 2 mg 09-02 18:51: 22 09-02 18:51 :00 No [id number] 2mg 2 mg, Intravitre al, ONCE PRN, 1 dose, Starting on Sandra 09/02/22 at 1351, Until Sandra 09/02/22 at 1351, Routine [facility] VIT A/VIT C/VIT E/ZINC/NAHUM ER (ICAPS AREDS ORAL) 08-30 11:19: 25 Yes Take by mouth daily. [facility] tetrahydroz oline 0.05 % ophthalmic solution 08-26 09:59: 12 Yes 1[drp] Take 1 Drop in the morning and 1 Drop in the evening. [facility] leflunomide 10 mg tablet - 00:00: 00 09-14 00:00 :00 No [id number] 10mg Take 1 tablet by mouth in the morning. [facility] ATORVASTATI N 40 mg tablet -08 00:00: 00 09-03 00:00 :00 No TAKE ONE TABLET BY MOUTH AT BEDTIME [facility] methotrexat e 2.5 mg tablet -06 00:00: 00 08-30 00:00 :00 No [id number] Take by mouth TAKE 7 TABLETS BY MOUTH ONCE WEEKLY [facility] VIT A/VIT C/VIT E/ZINC/NAHUM ER (ICAPS AREDS ORAL) 06-24 10:21: 37 Yes Take by mouth daily. [facility] losartan 100 mg tablet - 00:00: 00 09-30 00:00 :00 No 100mg Take 1 tablet by mouth in the morning. [facility] albuterol 90 mcg/actuati on inhaler 2-17 00:00: 00 10-19 00:00 :00 No [id number] 2{puff} Inhale 2 Puffs every 4 (four) hours as needed for Wheezing or Shortness of Breath. [facility] albuterol (VENTOLIN HFA) 90 mcg/actuati on inhaler 16 00:00: 00 Yes [id number] 2{puff} Inhale 2 Puffs every 6 (six) hours as needed for Wheezing or Shortness of Breath. [facility] foLIC acid 1 mg tablet 16 00:00: 00 01-13 00:00 :00 No [id number] 3mg Take 3 tablets by mouth in the morning. [facility] methotrexat e 2.5 mg tablet 16 00:00: 00 06-18 05:59 :00 No [id number] 17.5mg Take 7 tablets by mouth once now [facility] foLIC acid 1 mg tablet 06-15 00:00: 00 08-30 00:00 :00 No [id number] 3mg Take 3 tablets by mouth in the morning. [facility] methotrexat e 2.5 mg tablet 06-15 00:00: 00 06-16 05:59 :00 No [id number] 17.5mg Take 7 tablets by mouth once now [facility] ipratropium 0.02 % nebulizer solution 06-12 00:00: 00 Yes [id number] .5mg Inhale 2.5 mL every 6 (six) hours. [facility] lidocaine 5 % (700 mg/patch) patch 06-12 00:00: 00 06-24 00:00 :00 No [id number] 1{patch } Apply 1 Patch to area(s) in the morning for 14 days. [facility] predniSONE 20 mg tablet 2 00:00: 00 06-16 05:59 :00 No [id number] 40mg Take 2 tablets by mouth in the morning for 3 days. [facility] lidocaine (LIDODERM) 5 % (700 mg/patch) patch 1 Patch 210 15:00: 00 Yes 1{patch } 1 Patch, Topical, Administer over 12 Hours, DAILY, First dose (after last reorder) on Tue06/11/22 at 0900, Until Discontinu ed, Routine [facility] VIT A/VIT C/VIT E/ZINC/NAHUM ER (ICAPS AREDS ORAL) 06-11 14:16: 51 Yes Take by mouth daily. [facility] Nebulizer & Compressor For Neb Osiel 06-11 00:00: 00 Yes [id number] Use as directed [facility] Nebulizer & Compressor For Neb Osiel 06-11 00:00: 00 Yes [id number] Use as directed [facility] HYDROcodone -acetaminop hen 5-325 mg tablet 06-11 00:00: 00 06-24 00:00 :00 No [id number] 1{tbl} Take 1 tablet by mouth every 6 (six) hours as needed for Pain (scale 4-6) for up to 15 doses. Indication s: acute pain [facility] Diclofenac Sodium 1 % gel 06-11 00:00: 00 06-24 00:00 :00 No [id number] Apply to area(s) 2 (two) times daily as needed for Pain (scale 4-6) or Pain (scale 1-3). [facility] ipratropium 0.02 % nebulizer solution 06-11 00:00: 00 06-12 00:00 :00 No [id number] .5mg Inhale 2.5 mL every 6 (six) hours for 30 days. [facility] lidocaine (LIDODERM) 5 % (700 mg/patch) patch 1 Patch 06-10 17:45: 00 06-11 05:08 :00 No 1{patch } 1 Patch, Topical, Administer over 12 Hours, ONCE, 1 dose, On Tue06/10/22 at 1145, Routine [facility] enoxaparin (LOVENOX) injection 40 mg 06-10 15:00: 00 Yes 40mg 40 mg, Subcutaneo us, DAILY, First dose on Tue06/10/22 at 0900, Until Discontinu ed, Routine [facility] losartan (COZAAR) tablet 100 mg 06-10 15:00: 00 Yes 100mg 100 mg, Oral, DAILY, First dose on Tue06/10/22 at 0900, Until Discontinu ed, Routine [facility] foLIC acid (FOLATE) tablet 2 mg 06-10 15:00: 00 Yes 2mg 2 mg, Oral, DAILY, First dose on Tue06/10/22 at 0900, Until Discontinu ed, Routine [facility] aspirin chewable tablet 81 mg 06-10 15:00: 00 Yes 81mg 81 mg, Oral, DAILY, First dose on Tue06/10/22 at 0900, Until Discontinu ed, Routine [facility] predniSONE (DELTASONE) tablet 40 mg 06-10 15:00: 00 06-14 14:59 :00 No 40mg 40 mg, Oral, DAILY, 4 doses, First dose on Tue06/10/22 at 0900, Last dose on Tue06/13/22 at 0900, Routine [facility] ipratropium (ATROVENT) 0.02 % nebulizer solution 0.5 mg 06-10 03:45: 00 Yes .5mg 0.5 mg, Inhalation , Q6H, First dose on Tue06/09/22 at 2145, Until Discontinu ed, Routine [facility] albuterol (PROVENTIL) 2.5 mg /3 mL (0.083 %) nebulizer solution 2.5 mg 06-10 03:45: 00 Yes 2.5mg 2.5 mg, Inhalation , Q6H, First dose on Tue06/09/22 at 2145, Until Discontinu ed, Routine [facility] metoprolol tartrate (LOPRESSOR) tablet 100 mg 06-10 03:45: 00 Yes 100mg 100 mg, Oral, BID, First dose on Tue06/09/22 at 2145, Until Discontinu ed, Routine [facility] atorvastati n (LIPITOR) tablet 40 mg 06-10 03:45: 00 Yes 40mg 40 mg, Oral, QHS, First dose on Tue06/09/22 at 2145, Until Discontinu ed, Routine [facility] ondansetron (ZOFRAN (PF)) injection 4 mg 06-10 03:40: 51 Yes 4mg 4 mg, Slow IV Push, Q6HPRN, Starting on Tue06/09/22 at 2140, Until Discontinu ed, Routine, Nausea and Vomiting (N/V) [facility] HYDROcodone -acetaminop hen (NORCO 5) 5-325 mg tablet 1 tablet 06-10 03:40: 36 06-12 03:39 :36 No 1{tbl} 1 tablet, Oral, Q6HPRN, Starting on Tue06/09/22 at 2140, Until Tue06/11/22 at 2139, Routine, Pain (scale 4-6) [facility] acetaminoph en (TYLENOL) tablet 650 mg 06-10 03:39: 44 Yes 650mg 650 mg, Oral, Q6HPRN, Starting on Tue06/09/22 at 2139, Until Discontinu ed, Routine, Pain (scale 1-3), Temp > 38 C [facility] iopamidol (ISOVUE 370-500 mL) injection 79 mL 06-10 00:15: 00 06-10 00:15 :00 No [id number] 79mL 79 mL, Intravenou s, ONCE, 1 dose, On Tue06/09/22 at 1815, Routine [facility] VIT A/VIT C/VIT E/ZINC/NAHUM ER (ICAPS AREDS ORAL) 06-09 21:41: 45 Yes Take by mouth daily. [facility] ipratropium -albuteroL (DUONEB) 0.5 mg-3 mg(2.5 mg base)/3 mL nebulizer solution 3 mL 06-09 20:45: 00 06-09 20:07 :00 No 3mL 3 mL, Inhalation , ONCE NOW, 1 dose, On Tue06/09/22 at 1445, Routine [facility] predniSONE (DELTASONE) tablet 40 mg 06-09 19:45: 00 06-09 20:33 :00 No 40mg 40 mg, Oral, ONCE, 1 dose, On Tue06/09/22 at 1345, ANH [facility] VIT A/VIT C/VIT E/ZINC/NAHUM ER (ICAPS AREDS ORAL) 05-31 12:08: 35 Yes Take by mouth daily. [facility] VIT A/VIT C/VIT E/ZINC/NAHUM ER (ICAPS AREDS ORAL) 05-25 13:44: 56 Yes Take by mouth daily. [facility] iopamidol (ISOVUE 370-500 mL) injection 80 mL 05-24 17:30: 00 05-24 17:27 :00 No [id number] 80mL 80 mL, Intravenou s, ONCE, 1 dose, On Tue05/24/22 at 1130, Routine [facility] methotrexat e 2.5 mg tablet 05-10 00:00: 00 06-11 00:00 :00 No [id number] Take by mouth TAKE 7 TABLES BY MOUTH WEEKLY [facility] aflibercept (EYLEA) intravitrea l syringe 2 mg 05-06 17:00: 00 05-06 17:33 :00 No [id number] 2mg [facility] aflibercept (EYLEA) intravitrea l syringe 2 mg 2021-05 18:30: 00 04-08 18:50 :00 No [id number] 2mg [facility] losartan 100 mg tablet 2021-05 00:00: 00 06-12 00:00 :00 No TAKE ONE TABLET BY MOUTH EVERY MORNING ( APPOINTMEN T NEEDED FOR FURTHER REFILLS CONTACT OFFICE TO SCHEDULE) [facility] aflibercept (EYLEA) intravitrea l syringe 2 mg 2021-05 20:15: 00 03-11 20:10 :00 No [id number] 2mg [facility] STIOLTO RESPIMAT 2.5-2.5 mcg/actuati on Mist 2021-05 0-28 00:00: 00 10-19 00:00 :00 No [id number] INHALE TWO INHALATION (S) BY MOUTH DAILY [facility] metoprolol tartrate 100 mg tablet 2021-05 0-10 00:00: 00 04-04 00:00 :00 No TAKE ONE TABLET BY MOUTH EVERY MORNING AND 1 TABLET IN THE EVENING [facility] atorvastati n 40 mg tablet -23 00:00: 00 07-07 00:00 :00 No 40mg Take 1 tablet by mouth at bedtime. [facility] METHOTREXAT E 2.5 mg tablet -16 00:00: 00 05-10 00:00 :00 No [id number] TAKE 7 TABLES BY MOUTH WEEKLY [facility] VENTOLIN HFA 90 mcg/actuati on inhaler -13 00:00: 00 06-12 00:00 :00 No [id number] INHALE TWO PUFFS BY MOUTH EVERY 6 HOURS NEEDED FOR WHEEZING OR FOR SHORTNESS OF BREATH [facility] iodixanoL (VISIPAQUE 270-150 mL) injection 90 mL 01-11 15:43: 00 01-11 15:43 :00 No [id number] 90mL 90 mL, Intravenou s, ONCE, 1 dose, On Tue01/11/22 at 1100, Routine [facility] metoprolol tartrate 100 mg tablet -12 00:00: 00 02-08 00:00 :00 No 100mg Take 1 tablet by mouth in the morning and 1 tablet in the evening. [facility] losartan 100 mg tablet -08 00:00: 00 03-18 00:00 :00 No 100mg Take 1 tablet by mouth in the morning. Appointmen t needed for further refills. Please contact office to schedule. Thank you [facility] VIT A/VIT C/VIT E/ZINC/NAHUM ER (ICAPS AREDS ORAL) 8- 13:11: 55 Yes Take by mouth daily. [facility] fluticasone -umeclidin- vilanter (TRELEGY ELLIPTA) 100-62.5-25 mcg DsDv 8- 00:00: 00 02-26 00:00 :00 No [id number] 1{dose} Inhale 1 Dose daily. [facility] methotrexat e 2.5 mg tablet 7-06 00:00: 00 01-15 00:00 :00 No [id number] 17.5mg Take 7 tablets by mouth weekly [facility] atorvastati n 40 mg tablet 10-07 00:00: 00 01-21 00:00 :00 No 40mg Take 1 tablet by mouth at bedtime. [facility] albuterol 90 mcg/actuati on inhaler 3- 00:00: 00 01-12 00:00 :00 No [id number] 2{puff} Inhale 2 Puffs every 6 (six) hours as needed for Wheezing or Shortness of Breath. [facility] methotrexat e 2.5 mg tablet 2020-05 2-14 00:00: 00 08-23 00:00 :00 No [id number] 17.5mg Take 7 tablets by mouth weekly [facility] foLIC acid 1 mg tablet 2020-05 2-10 00:00: 00 06-17 00:00 :00 No [id number] 2mg Take 2 tablets by mouth daily. [facility] furosemide 20 mg tablet 2020-05 0-20 00:00: 00 12-03 00:00 :00 No [id number] 20mg Take 1 tablet by mouth daily. [facility] ferrous sulfate (IRON ORAL) 2020-05 0-15 11:22: 47 02-13 00:00 :00 No 65mg Take 65 mg by mouth daily. [facility] CALCIUM CARBONATE/V ITAMIN D3 (VITAMIN D-3 ORAL) 2020-05 0-15 11:22: 32 02-13 00:00 :00 No [id number] Take 2,000 Units by mouth daily. [facility] ALBUTEROL 90 mcg/actuati on inhaler 2020-05 0-11 00:00: 00 07-16 00:00 :00 No [id number] INHALE TWO PUFFS BY MOUTH EVERY 4 HOURS NEEDED FOR WHEEZING OR FOR SHORTNESS OF BREATH [facility] atorvastati n 40 mg tablet 11-21 00:00: 00 05-29 00:00 :00 No 40mg Take 1 tablet by mouth at bedtime. Please have fasting labs done for further refills, thank you [facility] metoprolol tartrate 100 mg tablet 11-10 00:00: 00 08-03 00:00 :00 No 100mg Take 1 tablet by mouth 2 (two) times daily. [facility] tiotropium- olodateroL (STIOLTO RESPIMAT) 2.5-2.5 mcg/actuati on Mist 5- 00:00: 00 05-27 00:00 :00 No [id number] 2{puff} Inhale 2 Puffs daily. [facility] nystatin 100,000 unit/mL suspension 07-21 00:00: 00 02-13 00:00 :00 No [id number] U Take 10 mL by mouth 3 (three) times daily. [facility] lidocaine 2% viscous (LIDOCAINE VISCOUS) 2 % solution 07-17 00:00: 00 12-03 00:00 :00 No [id number] 10mL Take 10 mL by mouth every 4 (four) hours as needed for Oral mucosal pain. Avoids eating or drinking 1 hour after using [facility] clotrimazol e 10 mg margarita 07-17 00:00: 00 12-03 00:00 :00 No [facility] nicotine 10 mg inhaler 3-03 00:00: 00 02-13 00:00 :00 No [id number] 1{puff} Inhale 1 Puff as needed for Smoking cessation. [facility] albuterol (VENTOLIN HFA) 90 mcg/actuati on inhaler 3 00:00: 02-09 00:00 :00 No [id number] 2{puff} Inhale 2 Puffs every 4 (four) hours as needed for Wheezing or Shortness of Breath. [facility] tiotropium- olodateroL (STIOLTO RESPIMAT) 2.5-2.5 mcg/actuati on Mist 3- 00:00: 00 09-08 00:00 :00 No [id number] 2{puff} Inhale 2 Puffs daily. [facility] ondansetron 4 mg disintegrat ing tablet 06-23 00:00: 00 12-03 00:00 :00 No [id number] 4mg Take 1 tablet by mouth every 8 (eight) hours as needed for Nausea and Vomiting (N/V). [facility] proCHLORper azine 10 mg tablet 06-23 00:00: 00 11-07 00:00 :00 No [id number] 10mg Take 1 tablet by mouth every 6 (six) hours as needed for Nausea and Vomiting (N/V). [facility] foLIC acid 1 mg tablet 06-12 00:00: 00 03-25 00:00 :00 No [id number] 1mg Take 1 tablet by mouth daily. [facility] methotrexat e 2.5 mg tablet 06-12 00:00: 00 12-25 00:00 :00 No [id number] 15mg Take 6 tablets by mouth weekly [facility] losartan 100 mg tablet 06-05 00:00: 00 06-05 00:00 :00 No 100mg Take 1 tablet by mouth daily. [facility] amLODIPine 2.5 mg tablet 06-02 00:00: 00 09-09 00:00 :00 No [id number] 2.5mg Take 1 tablet by mouth daily. [facility] atorvastati n 40 mg tablet 2019-05 2 00:00: 08-12 00:00 :00 No 40mg Take 1 tablet by mouth at bedtime. Please have fasting labs done for further refills, thank you [facility] acetaminoph en (TYLENOL 8 HOUR) 650 mg CR tablet 2019-05 00:00: 00 12-03 00:00 :00 No [id number] 650mg Take 1 tablet by mouth every 8 (eight) hours as needed for Pain. [facility] atorvastati n 40 mg tablet 2019-05 0 00:00: 00 02-27 00:00 :00 No 40mg Take 1 tablet by mouth at bedtime. [facility] metoprolol tartrate 100 mg tablet 01-01 00:00: 00 11-07 00:00 :00 No 100mg Take 1 tablet by mouth 2 (two) times daily. [facility] losartan 100 mg tablet 12-03 00:00: 02-27 00:00 :00 No 100mg Take 1 tablet by mouth daily. [facility] albuterol (VENTOLIN HFA) 90 mcg/actuati on inhaler 12-02 00:00: 07-02 00:00 :00 No [id number] 2{puff} Inhale 2 Puffs every 4 (four) hours as needed for Wheezing or Shortness of Breath. [facility] tiotropium- olodaterol (STIOLTO RESPIMAT) 2.5-2.5 mcg/actuati on Mist 11-19 00:00: 00 07-02 00:00 :00 No [id number] 2{puff} Inhale 2 Puffs daily. [facility] oxybutynin chloride 5 mg tablet 11-13 00:00: 00 04-03 00:00 :00 No [id number] 5mg Take 1 tablet by mouth 2 (two) times daily as needed for Bladder spasms. [facility] atorvastati n 40 mg tablet 11-08 00:00: 00 11-29 00:00 :00 No 40mg Take 1 tablet by mouth at bedtime. [facility] proCHLORper azine 10 mg tablet 10-18 00:00: 04-03 00:00 :00 No [id number] 10mg Take 1 tablet by mouth every 6 (six) hours as needed for Nausea and Vomiting (N/V). [facility] dexAMETHaso ne 4 mg tablet 10-18 00:0004-03 00:00 :00 No [id number] 4mg Take 1 tablet by mouth 2 (two) times daily. Take on Days 1-5. [facility] acetaminoph en 325 mg tablet 10-16 00:00: 04-03 00:00 :00 No [id number] 650mg Take 2 tablets by mouth every 8 (eight) hours as needed for Pain (scale 4-6). [facility] oxybutynin chloride 5 mg tablet 10-16 00:00: 11-12 00:00 :00 No [id number] 5mg Take 1 tablet by mouth 2 (two) times daily as needed for Bladder spasms. [facility] LOSARTAN 100 mg tablet 08-20 00:00: 12-02 00:00 :00 No TAKE ONE TABLET BY MOUTH DAILY [facility] methotrexat e 2.5 mg tablet 2- 00:00: 02-27 00:00 :00 No [id number] 15mg Take 6 tablets by mouth weekly [facility] foLIC acid 1 mg tablet 06-22 00:00: 02-27 00:00 :00 No [id number] 1mg Take 1 tablet by mouth daily. [facility] metoprolol tartrate 100 mg tablet 2018-05 0 00:00: 00 01-01 00:00 :00 No 100mg Take 1 tablet by mouth 2 (two) times daily. [facility] albuterol (VENTOLIN HFA) 90 mcg/actuati on inhaler 10-27 00:00: 11-29 00:00 :00 No [id number] 2{puff} Inhale 2 Puffs every 4 (four) hours as needed for Wheezing or Shortness of Breath. [facility] tiotropium- olodaterol (STIOLTO RESPIMAT) 2.5-2.5 mcg/actuati on Mist 10-27 00:00: 00 11-19 00:00 :00 No [id number] 2{puff} Inhale 2 Puffs daily. [facility] naproxen 500 mg tablet 10-24 00:00: 00 04-03 00:00 :00 No TAKE ONE TABLET BY MOUTH TWICE A DAY WITH MEALS [facility] aspirin 81 mg chewable tablet 01-08 00:00: 00 Yes 81mg Take 1 Tab by mouth daily. [facility] Immunizations Ordered Immunization Name Filled Immunization Name Date Status Comments Source Pneumococcal 20 Conjugate, PCV20 (Prevnar 20) 2022-12-22 00:00:00 Completed [facility] Pneumococcal 20 Conjugate, PCV20 (Prevnar 20) 2022-12-22 00:00:00 Completed [facility] Pneumococcal 20 Conjugate, PCV20 (Prevnar 20) 2022-12-22 00:00:00 Completed [facility] Pneumococcal 20 Conjugate, PCV20 (Prevnar 20) 2022-12-22 00:00:00 Completed [facility] Pneumococcal 20 Conjugate, PCV20 (Prevnar 20) 2022-12-22 00:00:00 Completed [facility] Pneumococcal 20 Conjugate, PCV20 (Prevnar 20) 2022-12-22 00:00:00 Completed [facility] Pneumococcal 20 Conjugate, PCV20 (Prevnar 20) 2022-12-22 00:00:00 Completed [facility] Pneumococcal 20 Conjugate, PCV20 (Prevnar 20) 2022-12-22 00:00:00 Completed [facility] Pneumococcal 20 Conjugate, PCV20 (Prevnar 20) 2022-12-22 00:00:00 Completed [facility] Pneumococcal 20 Conjugate, PCV20 (Prevnar 20) 2022-12-22 00:00:00 Completed [facility] Pneumococcal 20 Conjugate, PCV20 (Prevnar 20) 2022-12-22 00:00:00 Completed [facility] Pneumococcal 20 Conjugate, PCV20 (Prevnar 20) 2022-12-22 00:00:00 Completed [facility] Pneumococcal 20 Conjugate, PCV20 (Prevnar 20) 2022-12-22 00:00:00 Completed [facility] Pneumococcal 20 Conjugate, PCV20 (Prevnar 20) 2022-12-22 00:00:00 Completed [facility] Pneumococcal 20 Conjugate, PCV20 (Prevnar 20) 2022-12-22 00:00:00 Completed [facility] Pneumococcal 20 Conjugate, PCV20 (Prevnar 20) 2022-12-22 00:00:00 Completed [facility] Pneumococcal 20 Conjugate, PCV20 (Prevnar 20) 2022-12-22 00:00:00 Completed [facility] SARS-COV-2 COVID-19 PFIZER VACCINE 2021-04-23 00:00:00 Completed [facility] SARS-COV-2 COVID-19 PFIZER VACCINE 2021-04-23 00:00:00 Completed [facility] SARS-COV-2 COVID-19 PFIZER VACCINE 2021-04-23 00:00:00 Completed [facility] SARS-COV-2 COVID-19 PFIZER VACCINE 2021-04-23 00:00:00 Completed [facility] SARS-COV-2 COVID-19 PFIZER VACCINE 2021-04-23 00:00:00 Completed [facility] SARS-COV-2 COVID-19 PFIZER VACCINE 2021-04-23 00:00:00 Completed [facility] SARS-COV-2 COVID-19 PFIZER VACCINE 2021-04-23 00:00:00 Completed [facility] SARS-COV-2 COVID-19 PFIZER VACCINE 2021-04-23 00:00:00 Completed [facility] SARS-COV-2 COVID-19 PFIZER VACCINE 2021-04-23 00:00:00 Completed [facility] SARS-COV-2 COVID-19 PFIZER VACCINE 2021-04-23 00:00:00 Completed [facility] SARS-COV-2 COVID-19 PFIZER VACCINE 2021-04-23 00:00:00 Completed [facility] SARS-COV-2 COVID-19 PFIZER VACCINE 2021-04-23 00:00:00 Completed [facility] SARS-COV-2 COVID-19 PFIZER VACCINE 2021-04-23 00:00:00 Completed [facility] SARS-COV-2 COVID-19 PFIZER VACCINE 2021-04-23 00:00:00 Completed [facility] SARS-COV-2 COVID-19 PFIZER VACCINE 2021-04-23 00:00:00 Completed [facility] SARS-COV-2 COVID-19 PFIZER VACCINE 2021-04-23 00:00:00 Completed [facility] SARS-COV-2 COVID-19 PFIZER VACCINE 2021-04-23 00:00:00 Completed [facility] SARS-COV-2 COVID-19 PFIZER VACCINE 2021-04-23 00:00:00 Completed [facility] SARS-COV-2 COVID-19 PFIZER VACCINE 2021-04-23 00:00:00 Completed [facility] SARS-COV-2 COVID-19 PFIZER VACCINE 2021-04-23 00:00:00 Completed [facility] SARS-COV-2 COVID-19 PFIZER VACCINE 2021-04-23 00:00:00 Completed [facility] SARS-COV-2 COVID-19 PFIZER VACCINE 2021-04-23 00:00:00 Completed [facility] SARS-COV-2 COVID-19 PFIZER VACCINE 2021-04-23 00:00:00 Completed [facility] SARS-COV-2 COVID-19 PFIZER VACCINE 2021-04-23 00:00:00 Completed [facility] SARS-COV-2 COVID-19 PFIZER VACCINE 2021-04-23 00:00:00 Completed [facility] SARS-COV-2 COVID-19 PFIZER VACCINE 2021-04-23 00:00:00 Completed [facility] SARS-COV-2 COVID-19 PFIZER VACCINE 2021-04-23 00:00:00 Completed [facility] SARS-COV-2 COVID-19 PFIZER VACCINE 2021-04-23 00:00:00 Completed [facility] SARS-COV-2 COVID-19 PFIZER VACCINE 2021-04-23 00:00:00 Completed [facility] SARS-COV-2 COVID-19 PFIZER VACCINE 2021-04-23 00:00:00 Completed [facility] SARS-COV-2 COVID-19 PFIZER VACCINE 2021-04-23 00:00:00 Completed [facility] SARS-COV-2 COVID-19 PFIZER VACCINE 2021-04-23 00:00:00 Completed [facility] SARS-COV-2 COVID-19 PFIZER VACCINE 2021-04-23 00:00:00 Completed [facility] SARS-COV-2 COVID-19 PFIZER VACCINE 2021-04-23 00:00:00 Completed [facility] SARS-COV-2 COVID-19 PFIZER VACCINE 2021-04-23 00:00:00 Completed [facility] SARS-COV-2 COVID-19 PFIZER VACCINE 2021-04-23 00:00:00 Completed [facility] SARS-COV-2 COVID-19 PFIZER VACCINE 2021-04-23 00:00:00 Completed [facility] SARS-COV-2 COVID-19 PFIZER VACCINE 2021-04-23 00:00:00 Completed [facility] SARS-COV-2 COVID-19 PFIZER VACCINE 2021-04-23 00:00:00 Completed [facility] SARS-COV-2 COVID-19 PFIZER VACCINE 2021-04-23 00:00:00 Completed [facility] SARS-COV-2 COVID-19 PFIZER VACCINE 2021-04-23 00:00:00 Completed [facility] SARS-COV-2 COVID-19 PFIZER VACCINE 2021-04-23 00:00:00 Completed [facility] SARS-COV-2 COVID-19 PFIZER VACCINE 2021-04-23 00:00:00 Completed [facility] SARS-COV-2 COVID-19 PFIZER VACCINE 2021-04-23 00:00:00 Completed [facility] SARS-COV-2 COVID-19 PFIZER VACCINE 2021-04-23 00:00:00 Completed [facility] SARS-COV-2 COVID-19 PFIZER VACCINE 2021-04-23 00:00:00 Completed [facility] SARS-COV-2 COVID-19 PFIZER VACCINE 2021-04-23 00:00:00 Completed [facility] SARS-COV-2 COVID-19 PFIZER VACCINE 2021-04-23 00:00:00 Completed [facility] SARS-COV-2 COVID-19 PFIZER VACCINE 2021-04-23 00:00:00 Completed [facility] SARS-COV-2 COVID-19 PFIZER VACCINE 2021-04-23 00:00:00 Completed [facility] SARS-COV-2 COVID-19 PFIZER VACCINE 2021-04-23 00:00:00 Completed [facility] SARS-COV-2 COVID-19 PFIZER VACCINE 2021-04-23 00:00:00 Completed [facility] SARS-COV-2 COVID-19 PFIZER VACCINE 2021-04-23 00:00:00 Completed [facility] SARS-COV-2 COVID-19 PFIZER VACCINE 2021-04-23 00:00:00 Completed [facility] SARS-COV-2 COVID-19 PFIZER VACCINE 2021-04-23 00:00:00 Completed [facility] SARS-COV-2 COVID-19 PFIZER VACCINE 2021-04-23 00:00:00 Completed [facility] SARS-COV-2 COVID-19 PFIZER VACCINE 2021-04-23 00:00:00 Completed [facility] SARS-COV-2 COVID-19 PFIZER VACCINE 2021-04-23 00:00:00 Completed [facility] SARS-COV-2 COVID-19 PFIZER VACCINE 2021-04-23 00:00:00 Completed [facility] SARS-COV-2 COVID-19 PFIZER VACCINE 2021-04-23 00:00:00 Completed [facility] SARS-COV-2 COVID-19 PFIZER VACCINE 2021-04-23 00:00:00 Completed [facility] SARS-COV-2 COVID-19 PFIZER VACCINE 2021-04-23 00:00:00 Completed [facility] SARS-COV-2 COVID-19 PFIZER VACCINE 2021-04-23 00:00:00 Completed [facility] SARS-COV-2 COVID-19 PFIZER VACCINE 2021-04-23 00:00:00 Completed [facility] SARS-COV-2 COVID-19 PFIZER VACCINE 2021-04-23 00:00:00 Completed [facility] SARS-COV-2 COVID-19 PFIZER VACCINE 2021-04-23 00:00:00 Completed [facility] SARS-COV-2 COVID-19 PFIZER VACCINE 2021-04-23 00:00:00 Completed [facility] SARS-COV-2 COVID-19 PFIZER VACCINE 2021-04-23 00:00:00 Completed [facility] SARS-COV-2 COVID-19 PFIZER VACCINE 2021-04-23 00:00:00 Completed [facility] SARS-COV-2 COVID-19 PFIZER VACCINE 2021-04-23 00:00:00 Completed [facility] SARS-COV-2 COVID-19 PFIZER VACCINE 2021-04-23 00:00:00 Completed [facility] SARS-COV-2 COVID-19 PFIZER VACCINE 2021-04-23 00:00:00 Completed [facility] SARS-COV-2 COVID-19 PFIZER VACCINE 2021-04-23 00:00:00 Completed [facility] SARS-COV-2 COVID-19 PFIZER VACCINE 2021-04-23 00:00:00 Completed [facility] SARS-COV-2 COVID-19 PFIZER VACCINE 2021-04-23 00:00:00 Completed [facility] SARS-COV-2 COVID-19 PFIZER VACCINE 2021-04-23 00:00:00 Completed [facility] SARS-COV-2 COVID-19 PFIZER VACCINE 2021-04-23 00:00:00 Completed [facility] SARS-COV-2 COVID-19 PFIZER VACCINE 2021-04-23 00:00:00 Completed [facility] SARS-COV-2 COVID-19 PFIZER VACCINE 2021-04-23 00:00:00 Completed [facility] SARS-COV-2 COVID-19 PFIZER VACCINE 2021-04-23 00:00:00 Completed [facility] SARS-COV-2 COVID-19 PFIZER VACCINE 2021-04-23 00:00:00 Completed [facility] SARS-COV-2 COVID-19 PFIZER VACCINE 2021-04-23 00:00:00 Completed [facility] SARS-COV-2 COVID-19 PFIZER VACCINE 2021-04-23 00:00:00 Completed [facility] SARS-COV-2 COVID-19 PFIZER VACCINE 2021-04-23 00:00:00 Completed [facility] SARS-COV-2 COVID-19 PFIZER VACCINE 2021-04-23 00:00:00 Completed [facility] SARS-COV-2 COVID-19 PFIZER VACCINE 2021-04-23 00:00:00 Completed [facility] SARS-COV-2 COVID-19 PFIZER VACCINE 2021-04-23 00:00:00 Completed [facility] SARS-COV-2 COVID-19 PFIZER VACCINE 2021-04-23 00:00:00 Completed [facility] SARS-COV-2 COVID-19 PFIZER VACCINE 2021-04-23 00:00:00 Completed [facility] SARS-COV-2 COVID-19 PFIZER VACCINE 2021-04-23 00:00:00 Completed [facility] SARS-COV-2 COVID-19 PFIZER VACCINE 2021-04-23 00:00:00 Completed [facility] SARS-COV-2 COVID-19 PFIZER VACCINE 2021-04-23 00:00:00 Completed [facility] SARS-COV-2 COVID-19 PFIZER VACCINE 2021-04-23 00:00:00 Completed [facility] SARS-COV-2 COVID-19 PFIZER VACCINE 2021-04-23 00:00:00 Completed [facility] SARS-COV-2 COVID-19 PFIZER VACCINE 2021-04-23 00:00:00 Completed [facility] SARS-COV-2 COVID-19 PFIZER VACCINE 2021-04-23 00:00:00 Completed [facility] SARS-COV-2 COVID-19 PFIZER VACCINE 2021-04-23 00:00:00 Completed [facility] SARS-COV-2 COVID-19 PFIZER VACCINE 2021-04-23 00:00:00 Completed [facility] SARS-COV-2 COVID-19 PFIZER VACCINE 2021-04-23 00:00:00 Completed [facility] SARS-COV-2 COVID-19 PFIZER VACCINE 2021-04-23 00:00:00 Completed [facility] SARS-COV-2 COVID-19 PFIZER VACCINE 2021-04-23 00:00:00 Completed [facility] SARS-COV-2 COVID-19 PFIZER VACCINE 2021-04-23 00:00:00 Completed [facility] SARS-COV-2 COVID-19 PFIZER VACCINE 2021-04-23 00:00:00 Completed [facility] SARS-COV-2 COVID-19 PFIZER VACCINE 2021-04-23 00:00:00 Completed [facility] SARS-COV-2 COVID-19 PFIZER VACCINE 2021-04-23 00:00:00 Completed [facility] SARS-COV-2 COVID-19 PFIZER VACCINE 2021-04-23 00:00:00 Completed [facility] SARS-COV-2 COVID-19 PFIZER VACCINE 2021-04-23 00:00:00 Completed [facility] SARS-COV-2 COVID-19 PFIZER VACCINE 2021-04-23 00:00:00 Completed [facility] SARS-COV-2 COVID-19 PFIZER VACCINE 2021-04-23 00:00:00 Completed [facility] SARS-COV-2 COVID-19 PFIZER VACCINE 2021-04-23 00:00:00 Completed [facility] SARS-COV-2 COVID-19 PFIZER VACCINE 2021-04-23 00:00:00 Completed [facility] SARS-COV-2 COVID-19 PFIZER VACCINE 2021-04-23 00:00:00 Completed [facility] SARS-COV-2 COVID-19 PFIZER VACCINE 2021-04-23 00:00:00 Completed [facility] SARS-COV-2 COVID-19 PFIZER VACCINE 2021-04-23 00:00:00 Completed [facility] SARS-COV-2 COVID-19 PFIZER VACCINE 2021-04-23 00:00:00 Completed [facility] SARS-COV-2 COVID-19 PFIZER VACCINE 2021-04-23 00:00:00 Completed [facility] SARS-COV-2 COVID-19 PFIZER VACCINE 2021-04-23 00:00:00 Completed [facility] SARS-COV-2 COVID-19 PFIZER VACCINE 2021-04-23 00:00:00 Completed [facility] SARS-COV-2 COVID-19 PFIZER VACCINE 2021-04-23 00:00:00 Completed [facility] SARS-COV-2 COVID-19 PFIZER VACCINE 2021-04-23 00:00:00 Completed [facility] SARS-COV-2 COVID-19 PFIZER VACCINE 2021-04-23 00:00:00 Completed [facility] SARS-COV-2 COVID-19 PFIZER VACCINE 2021-04-23 00:00:00 Completed [facility] SARS-COV-2 COVID-19 PFIZER VACCINE 2021-04-23 00:00:00 Completed [facility] SARS-COV-2 COVID-19 PFIZER VACCINE 2021-04-23 00:00:00 Completed [facility] SARS-COV-2 COVID-19 PFIZER VACCINE 2021-04-23 00:00:00 Completed [facility] SARS-COV-2 COVID-19 PFIZER VACCINE 2021-04-23 00:00:00 Completed [facility] SARS-COV-2 COVID-19 PFIZER VACCINE 2021-04-23 00:00:00 Completed [facility] SARS-COV-2 COVID-19 PFIZER VACCINE 2021-04-23 00:00:00 Completed [facility] SARS-COV-2 COVID-19 PFIZER VACCINE 2021-04-23 00:00:00 Completed [facility] SARS-COV-2 COVID-19 PFIZER VACCINE 2021-04-23 00:00:00 Completed [facility] SARS-COV-2 COVID-19 PFIZER VACCINE 2021-04-23 00:00:00 Completed [facility] SARS-COV-2 COVID-19 PFIZER VACCINE 2021-04-23 00:00:00 Completed [facility] SARS-COV-2 COVID-19 PFIZER VACCINE 2021-04-23 00:00:00 Completed [facility] SARS-COV-2 COVID-19 PFIZER VACCINE 2021-04-23 00:00:00 Completed [facility] SARS-COV-2 COVID-19 PFIZER VACCINE 2021-04-23 00:00:00 Completed [facility] SARS-COV-2 COVID-19 PFIZER VACCINE 2021-04-23 00:00:00 Completed [facility] SARS-COV-2 COVID-19 PFIZER VACCINE 2021-04-23 00:00:00 Completed [facility] SARS-COV-2 COVID-19 PFIZER VACCINE 2021-04-23 00:00:00 Completed [facility] SARS-COV-2 COVID-19 PFIZER VACCINE 2021-04-23 00:00:00 Completed [facility] SARS-COV-2 COVID-19 PFIZER VACCINE 2021-04-23 00:00:00 Completed [facility] SARS-COV-2 COVID-19 PFIZER VACCINE 2021-04-23 00:00:00 Completed [facility] SARS-COV-2 COVID-19 PFIZER VACCINE 2021-04-23 00:00:00 Completed [facility] SARS-COV-2 COVID-19 PFIZER VACCINE 2021-04-23 00:00:00 Completed [facility] SARS-COV-2 COVID-19 PFIZER VACCINE 2021-04-23 00:00:00 Completed [facility] SARS-COV-2 COVID-19 PFIZER VACCINE 2021-04-23 00:00:00 Completed [facility] SARS-COV-2 COVID-19 PFIZER VACCINE 2021-04-23 00:00:00 Completed [facility] SARS-COV-2 COVID-19 PFIZER VACCINE 2021-04-23 00:00:00 Completed [facility] SARS-COV-2 COVID-19 PFIZER VACCINE 2021-04-23 00:00:00 Completed [facility] SARS-COV-2 COVID-19 PFIZER VACCINE 2021-04-23 00:00:00 Completed [facility] SARS-COV-2 COVID-19 PFIZER VACCINE 2021-04-23 00:00:00 Completed [facility] SARS-COV-2 COVID-19 PFIZER VACCINE 2021-04-23 00:00:00 Completed [facility] SARS-COV-2 COVID-19 PFIZER VACCINE 2021-04-23 00:00:00 Completed [facility] SARS-COV-2 COVID-19 PFIZER VACCINE 2021-04-23 00:00:00 Completed [facility] SARS-COV-2 COVID-19 PFIZER VACCINE 2020-06-26 00:00:00 Completed [facility] SARS-COV-2 COVID-19 PFIZER VACCINE 2020-06-26 00:00:00 Completed [facility] SARS-COV-2 COVID-19 PFIZER VACCINE 2020-06-26 00:00:00 Completed [facility] SARS-COV-2 COVID-19 PFIZER VACCINE 2020-06-26 00:00:00 Completed [facility] SARS-COV-2 COVID-19 PFIZER VACCINE 2020-06-26 00:00:00 Completed [facility] SARS-COV-2 COVID-19 PFIZER VACCINE 2020-06-26 00:00:00 Completed [facility] SARS-COV-2 COVID-19 PFIZER VACCINE 2020-06-26 00:00:00 Completed [facility] SARS-COV-2 COVID-19 PFIZER VACCINE 2020-06-26 00:00:00 Completed [facility] SARS-COV-2 COVID-19 PFIZER VACCINE 2020-06-26 00:00:00 Completed [facility] SARS-COV-2 COVID-19 PFIZER VACCINE 2020-06-26 00:00:00 Completed [facility] SARS-COV-2 COVID-19 PFIZER VACCINE 2020-06-26 00:00:00 Completed [facility] SARS-COV-2 COVID-19 PFIZER VACCINE 2020-06-26 00:00:00 Completed [facility] SARS-COV-2 COVID-19 PFIZER VACCINE 2020-06-26 00:00:00 Completed [facility] SARS-COV-2 COVID-19 PFIZER VACCINE 2020-06-26 00:00:00 Completed [facility] SARS-COV-2 COVID-19 PFIZER VACCINE 2020-06-26 00:00:00 Completed [facility] SARS-COV-2 COVID-19 PFIZER VACCINE 2020-06-26 00:00:00 Completed [facility] SARS-COV-2 COVID-19 PFIZER VACCINE 2020-06-26 00:00:00 Completed [facility] SARS-COV-2 COVID-19 PFIZER VACCINE 2020-06-26 00:00:00 Completed [facility] SARS-COV-2 COVID-19 PFIZER VACCINE 2020-06-26 00:00:00 Completed [facility] SARS-COV-2 COVID-19 PFIZER VACCINE 2020-06-26 00:00:00 Completed [facility] SARS-COV-2 COVID-19 PFIZER VACCINE 2020-06-26 00:00:00 Completed [facility] SARS-COV-2 COVID-19 PFIZER VACCINE 2020-06-26 00:00:00 Completed [facility] SARS-COV-2 COVID-19 PFIZER VACCINE 2020-06-26 00:00:00 Completed [facility] SARS-COV-2 COVID-19 PFIZER VACCINE 2020-06-26 00:00:00 Completed [facility] SARS-COV-2 COVID-19 PFIZER VACCINE 2020-06-26 00:00:00 Completed [facility] SARS-COV-2 COVID-19 PFIZER VACCINE 2020-06-26 00:00:00 Completed [facility] SARS-COV-2 COVID-19 PFIZER VACCINE 2020-06-26 00:00:00 Completed [facility] SARS-COV-2 COVID-19 PFIZER VACCINE 2020-06-26 00:00:00 Completed [facility] SARS-COV-2 COVID-19 PFIZER VACCINE 2020-06-26 00:00:00 Completed [facility] SARS-COV-2 COVID-19 PFIZER VACCINE 2020-06-26 00:00:00 Completed [facility] SARS-COV-2 COVID-19 PFIZER VACCINE 2020-06-26 00:00:00 Completed [facility] SARS-COV-2 COVID-19 PFIZER VACCINE 2020-06-26 00:00:00 Completed [facility] SARS-COV-2 COVID-19 PFIZER VACCINE 2020-06-26 00:00:00 Completed [facility] SARS-COV-2 COVID-19 PFIZER VACCINE 2020-06-26 00:00:00 Completed [facility] SARS-COV-2 COVID-19 PFIZER VACCINE 2020-06-26 00:00:00 Completed [facility] SARS-COV-2 COVID-19 PFIZER VACCINE 2020-06-26 00:00:00 Completed [facility] SARS-COV-2 COVID-19 PFIZER VACCINE 2020-06-26 00:00:00 Completed [facility] SARS-COV-2 COVID-19 PFIZER VACCINE 2020-06-26 00:00:00 Completed [facility] SARS-COV-2 COVID-19 PFIZER VACCINE 2020-06-26 00:00:00 Completed [facility] SARS-COV-2 COVID-19 PFIZER VACCINE 2020-06-26 00:00:00 Completed [facility] SARS-COV-2 COVID-19 PFIZER VACCINE 2020-06-26 00:00:00 Completed [facility] SARS-COV-2 COVID-19 PFIZER VACCINE 2020-06-26 00:00:00 Completed [facility] SARS-COV-2 COVID-19 PFIZER VACCINE 2020-06-26 00:00:00 Completed [facility] SARS-COV-2 COVID-19 PFIZER VACCINE 2020-06-26 00:00:00 Completed [facility] SARS-COV-2 COVID-19 PFIZER VACCINE 2020-06-26 00:00:00 Completed [facility] SARS-COV-2 COVID-19 PFIZER VACCINE 2020-06-26 00:00:00 Completed [facility] SARS-COV-2 COVID-19 PFIZER VACCINE 2020-06-26 00:00:00 Completed [facility] SARS-COV-2 COVID-19 PFIZER VACCINE 2020-06-26 00:00:00 Completed [facility] SARS-COV-2 COVID-19 PFIZER VACCINE 2020-06-26 00:00:00 Completed [facility] SARS-COV-2 COVID-19 PFIZER VACCINE 2020-06-26 00:00:00 Completed [facility] SARS-COV-2 COVID-19 PFIZER VACCINE 2020-06-26 00:00:00 Completed [facility] SARS-COV-2 COVID-19 PFIZER VACCINE 2020-06-26 00:00:00 Completed [facility] SARS-COV-2 COVID-19 PFIZER VACCINE 2020-06-26 00:00:00 Completed [facility] SARS-COV-2 COVID-19 PFIZER VACCINE 2020-06-26 00:00:00 Completed [facility] SARS-COV-2 COVID-19 PFIZER VACCINE 2020-06-26 00:00:00 Completed [facility] SARS-COV-2 COVID-19 PFIZER VACCINE 2020-06-26 00:00:00 Completed [facility] SARS-COV-2 COVID-19 PFIZER VACCINE 2020-06-26 00:00:00 Completed [facility] SARS-COV-2 COVID-19 PFIZER VACCINE 2020-06-26 00:00:00 Completed [facility] SARS-COV-2 COVID-19 PFIZER VACCINE 2020-06-26 00:00:00 Completed [facility] SARS-COV-2 COVID-19 PFIZER VACCINE 2020-06-26 00:00:00 Completed [facility] SARS-COV-2 COVID-19 PFIZER VACCINE 2020-06-26 00:00:00 Completed [facility] SARS-COV-2 COVID-19 PFIZER VACCINE 2020-06-26 00:00:00 Completed [facility] SARS-COV-2 COVID-19 PFIZER VACCINE 2020-06-26 00:00:00 Completed [facility] SARS-COV-2 COVID-19 PFIZER VACCINE 2020-06-26 00:00:00 Completed [facility] SARS-COV-2 COVID-19 PFIZER VACCINE 2020-06-26 00:00:00 Completed [facility] SARS-COV-2 COVID-19 PFIZER VACCINE 2020-06-26 00:00:00 Completed [facility] SARS-COV-2 COVID-19 PFIZER VACCINE 2020-06-26 00:00:00 Completed [facility] SARS-COV-2 COVID-19 PFIZER VACCINE 2020-06-26 00:00:00 Completed [facility] SARS-COV-2 COVID-19 PFIZER VACCINE 2020-06-26 00:00:00 Completed [facility] SARS-COV-2 COVID-19 PFIZER VACCINE 2020-06-26 00:00:00 Completed [facility] SARS-COV-2 COVID-19 PFIZER VACCINE 2020-06-26 00:00:00 Completed [facility] SARS-COV-2 COVID-19 PFIZER VACCINE 2020-06-26 00:00:00 Completed [facility] SARS-COV-2 COVID-19 PFIZER VACCINE 2020-06-26 00:00:00 Completed [facility] SARS-COV-2 COVID-19 PFIZER VACCINE 2020-06-26 00:00:00 Completed [facility] SARS-COV-2 COVID-19 PFIZER VACCINE 2020-06-26 00:00:00 Completed [facility] SARS-COV-2 COVID-19 PFIZER VACCINE 2020-06-26 00:00:00 Completed [facility] SARS-COV-2 COVID-19 PFIZER VACCINE 2020-06-26 00:00:00 Completed [facility] SARS-COV-2 COVID-19 PFIZER VACCINE 2020-06-26 00:00:00 Completed [facility] SARS-COV-2 COVID-19 PFIZER VACCINE 2020-06-26 00:00:00 Completed [facility] SARS-COV-2 COVID-19 PFIZER VACCINE 2020-06-26 00:00:00 Completed [facility] SARS-COV-2 COVID-19 PFIZER VACCINE 2020-06-26 00:00:00 Completed [facility] SARS-COV-2 COVID-19 PFIZER VACCINE 2020-06-26 00:00:00 Completed [facility] SARS-COV-2 COVID-19 PFIZER VACCINE 2020-06-26 00:00:00 Completed [facility] SARS-COV-2 COVID-19 PFIZER VACCINE 2020-06-26 00:00:00 Completed [facility] SARS-COV-2 COVID-19 PFIZER VACCINE 2020-06-26 00:00:00 Completed [facility] SARS-COV-2 COVID-19 PFIZER VACCINE 2020-06-26 00:00:00 Completed [facility] SARS-COV-2 COVID-19 PFIZER VACCINE 2020-06-26 00:00:00 Completed [facility] SARS-COV-2 COVID-19 PFIZER VACCINE 2020-06-26 00:00:00 Completed [facility] SARS-COV-2 COVID-19 PFIZER VACCINE 2020-06-26 00:00:00 Completed [facility] SARS-COV-2 COVID-19 PFIZER VACCINE 2020-06-26 00:00:00 Completed [facility] SARS-COV-2 COVID-19 PFIZER VACCINE 2020-06-26 00:00:00 Completed [facility] SARS-COV-2 COVID-19 PFIZER VACCINE 2020-06-26 00:00:00 Completed [facility] SARS-COV-2 COVID-19 PFIZER VACCINE 2020-06-26 00:00:00 Completed [facility] SARS-COV-2 COVID-19 PFIZER VACCINE 2020-06-26 00:00:00 Completed [facility] SARS-COV-2 COVID-19 PFIZER VACCINE 2020-06-26 00:00:00 Completed [facility] SARS-COV-2 COVID-19 PFIZER VACCINE 2020-06-26 00:00:00 Completed [facility] SARS-COV-2 COVID-19 PFIZER VACCINE 2020-06-26 00:00:00 Completed [facility] SARS-COV-2 COVID-19 PFIZER VACCINE 2020-06-26 00:00:00 Completed [facility] SARS-COV-2 COVID-19 PFIZER VACCINE 2020-06-26 00:00:00 Completed [facility] SARS-COV-2 COVID-19 PFIZER VACCINE 2020-06-26 00:00:00 Completed [facility] SARS-COV-2 COVID-19 PFIZER VACCINE 2020-06-26 00:00:00 Completed [facility] SARS-COV-2 COVID-19 PFIZER VACCINE 2020-06-26 00:00:00 Completed [facility] SARS-COV-2 COVID-19 PFIZER VACCINE 2020-06-26 00:00:00 Completed [facility] SARS-COV-2 COVID-19 PFIZER VACCINE 2020-06-26 00:00:00 Completed [facility] SARS-COV-2 COVID-19 PFIZER VACCINE 2020-06-26 00:00:00 Completed [facility] SARS-COV-2 COVID-19 PFIZER VACCINE 2020-06-26 00:00:00 Completed [facility] SARS-COV-2 COVID-19 PFIZER VACCINE 2020-06-26 00:00:00 Completed [facility] SARS-COV-2 COVID-19 PFIZER VACCINE 2020-06-26 00:00:00 Completed [facility] SARS-COV-2 COVID-19 PFIZER VACCINE 2020-06-26 00:00:00 Completed [facility] SARS-COV-2 COVID-19 PFIZER VACCINE 2020-06-26 00:00:00 Completed [facility] SARS-COV-2 COVID-19 PFIZER VACCINE 2020-06-26 00:00:00 Completed [facility] SARS-COV-2 COVID-19 PFIZER VACCINE 2020-06-26 00:00:00 Completed [facility] SARS-COV-2 COVID-19 PFIZER VACCINE 2020-06-26 00:00:00 Completed [facility] SARS-COV-2 COVID-19 PFIZER VACCINE 2020-06-26 00:00:00 Completed [facility] SARS-COV-2 COVID-19 PFIZER VACCINE 2020-06-26 00:00:00 Completed [facility] SARS-COV-2 COVID-19 PFIZER VACCINE 2020-06-26 00:00:00 Completed [facility] SARS-COV-2 COVID-19 PFIZER VACCINE 2020-06-26 00:00:00 Completed [facility] SARS-COV-2 COVID-19 PFIZER VACCINE 2020-06-26 00:00:00 Completed [facility] SARS-COV-2 COVID-19 PFIZER VACCINE 2020-06-26 00:00:00 Completed [facility] SARS-COV-2 COVID-19 PFIZER VACCINE 2020-06-26 00:00:00 Completed [facility] SARS-COV-2 COVID-19 PFIZER VACCINE 2020-06-26 00:00:00 Completed [facility] SARS-COV-2 COVID-19 PFIZER VACCINE 2020-06-26 00:00:00 Completed [facility] SARS-COV-2 COVID-19 PFIZER VACCINE 2020-06-26 00:00:00 Completed [facility] SARS-COV-2 COVID-19 PFIZER VACCINE 2020-06-26 00:00:00 Completed [facility] SARS-COV-2 COVID-19 PFIZER VACCINE 2020-06-26 00:00:00 Completed [facility] SARS-COV-2 COVID-19 PFIZER VACCINE 2020-06-26 00:00:00 Completed [facility] SARS-COV-2 COVID-19 PFIZER VACCINE 2020-06-26 00:00:00 Completed [facility] SARS-COV-2 COVID-19 PFIZER VACCINE 2020-06-26 00:00:00 Completed [facility] SARS-COV-2 COVID-19 PFIZER VACCINE 2020-06-26 00:00:00 Completed [facility] SARS-COV-2 COVID-19 PFIZER VACCINE 2020-06-26 00:00:00 Completed [facility] SARS-COV-2 COVID-19 PFIZER VACCINE 2020-06-26 00:00:00 Completed [facility] SARS-COV-2 COVID-19 PFIZER VACCINE 2020-06-26 00:00:00 Completed [facility] SARS-COV-2 COVID-19 PFIZER VACCINE 2020-06-26 00:00:00 Completed [facility] SARS-COV-2 COVID-19 PFIZER VACCINE 2020-06-26 00:00:00 Completed [facility] SARS-COV-2 COVID-19 PFIZER VACCINE 2020-06-26 00:00:00 Completed [facility] SARS-COV-2 COVID-19 PFIZER VACCINE 2020-06-26 00:00:00 Completed [facility] SARS-COV-2 COVID-19 PFIZER VACCINE 2020-06-26 00:00:00 Completed [facility] SARS-COV-2 COVID-19 PFIZER VACCINE 2020-06-26 00:00:00 Completed [facility] SARS-COV-2 COVID-19 PFIZER VACCINE 2020-06-26 00:00:00 Completed [facility] SARS-COV-2 COVID-19 PFIZER VACCINE 2020-06-26 00:00:00 Completed [facility] SARS-COV-2 COVID-19 PFIZER VACCINE 2020-06-26 00:00:00 Completed [facility] SARS-COV-2 COVID-19 PFIZER VACCINE 2020-06-26 00:00:00 Completed [facility] SARS-COV-2 COVID-19 PFIZER VACCINE 2020-06-26 00:00:00 Completed [facility] SARS-COV-2 COVID-19 PFIZER VACCINE 2020-06-26 00:00:00 Completed [facility] SARS-COV-2 COVID-19 PFIZER VACCINE 2020-06-26 00:00:00 Completed [facility] SARS-COV-2 COVID-19 PFIZER VACCINE 2020-06-26 00:00:00 Completed [facility] SARS-COV-2 COVID-19 PFIZER VACCINE 2020-06-26 00:00:00 Completed [facility] SARS-COV-2 COVID-19 PFIZER VACCINE 2020-06-26 00:00:00 Completed [facility] SARS-COV-2 COVID-19 PFIZER VACCINE 2020-06-26 00:00:00 Completed [facility] SARS-COV-2 COVID-19 PFIZER VACCINE 2020-06-26 00:00:00 Completed [facility] SARS-COV-2 COVID-19 PFIZER VACCINE 2020-06-26 00:00:00 Completed [facility] SARS-COV-2 COVID-19 PFIZER VACCINE 2020-06-26 00:00:00 Completed [facility] SARS-COV-2 COVID-19 PFIZER VACCINE 2020-06-26 00:00:00 Completed [facility] SARS-COV-2 COVID-19 PFIZER VACCINE 2020-05-28 00:00:00 Completed [facility] SARS-COV-2 COVID-19 PFIZER VACCINE 2020-05-28 00:00:00 Completed [facility] SARS-COV-2 COVID-19 PFIZER VACCINE 2020-05-28 00:00:00 Completed [facility] SARS-COV-2 COVID-19 PFIZER VACCINE 2020-05-28 00:00:00 Completed [facility] SARS-COV-2 COVID-19 PFIZER VACCINE 2020-05-28 00:00:00 Completed [facility] SARS-COV-2 COVID-19 PFIZER VACCINE 2020-05-28 00:00:00 Completed [facility] SARS-COV-2 COVID-19 PFIZER VACCINE 2020-05-28 00:00:00 Completed [facility] SARS-COV-2 COVID-19 PFIZER VACCINE 2020-05-28 00:00:00 Completed [facility] SARS-COV-2 COVID-19 PFIZER VACCINE 2020-05-28 00:00:00 Completed [facility] SARS-COV-2 COVID-19 PFIZER VACCINE 2020-05-28 00:00:00 Completed [facility] SARS-COV-2 COVID-19 PFIZER VACCINE 2020-05-28 00:00:00 Completed [facility] SARS-COV-2 COVID-19 PFIZER VACCINE 2020-05-28 00:00:00 Completed [facility] SARS-COV-2 COVID-19 PFIZER VACCINE 2020-05-28 00:00:00 Completed [facility] SARS-COV-2 COVID-19 PFIZER VACCINE 2020-05-28 00:00:00 Completed [facility] SARS-COV-2 COVID-19 PFIZER VACCINE 2020-05-28 00:00:00 Completed [facility] SARS-COV-2 COVID-19 PFIZER VACCINE 2020-05-28 00:00:00 Completed [facility] SARS-COV-2 COVID-19 PFIZER VACCINE 2020-05-28 00:00:00 Completed [facility] SARS-COV-2 COVID-19 PFIZER VACCINE 2020-05-28 00:00:00 Completed [facility] SARS-COV-2 COVID-19 PFIZER VACCINE 2020-05-28 00:00:00 Completed [facility] SARS-COV-2 COVID-19 PFIZER VACCINE 2020-05-28 00:00:00 Completed [facility] SARS-COV-2 COVID-19 PFIZER VACCINE 2020-05-28 00:00:00 Completed [facility] SARS-COV-2 COVID-19 PFIZER VACCINE 2020-05-28 00:00:00 Completed [facility] SARS-COV-2 COVID-19 PFIZER VACCINE 2020-05-28 00:00:00 Completed [facility] SARS-COV-2 COVID-19 PFIZER VACCINE 2020-05-28 00:00:00 Completed [facility] SARS-COV-2 COVID-19 PFIZER VACCINE 2020-05-28 00:00:00 Completed [facility] SARS-COV-2 COVID-19 PFIZER VACCINE 2020-05-28 00:00:00 Completed [facility] SARS-COV-2 COVID-19 PFIZER VACCINE 2020-05-28 00:00:00 Completed [facility] SARS-COV-2 COVID-19 PFIZER VACCINE 2020-05-28 00:00:00 Completed [facility] SARS-COV-2 COVID-19 PFIZER VACCINE 2020-05-28 00:00:00 Completed [facility] SARS-COV-2 COVID-19 PFIZER VACCINE 2020-05-28 00:00:00 Completed [facility] SARS-COV-2 COVID-19 PFIZER VACCINE 2020-05-28 00:00:00 Completed [facility] SARS-COV-2 COVID-19 PFIZER VACCINE 2020-05-28 00:00:00 Completed [facility] SARS-COV-2 COVID-19 PFIZER VACCINE 2020-05-28 00:00:00 Completed [facility] SARS-COV-2 COVID-19 PFIZER VACCINE 2020-05-28 00:00:00 Completed [facility] SARS-COV-2 COVID-19 PFIZER VACCINE 2020-05-28 00:00:00 Completed [facility] SARS-COV-2 COVID-19 PFIZER VACCINE 2020-05-28 00:00:00 Completed [facility] SARS-COV-2 COVID-19 PFIZER VACCINE 2020-05-28 00:00:00 Completed [facility] SARS-COV-2 COVID-19 PFIZER VACCINE 2020-05-28 00:00:00 Completed [facility] SARS-COV-2 COVID-19 PFIZER VACCINE 2020-05-28 00:00:00 Completed [facility] SARS-COV-2 COVID-19 PFIZER VACCINE 2020-05-28 00:00:00 Completed [facility] SARS-COV-2 COVID-19 PFIZER VACCINE 2020-05-28 00:00:00 Completed [facility] SARS-COV-2 COVID-19 PFIZER VACCINE 2020-05-28 00:00:00 Completed [facility] SARS-COV-2 COVID-19 PFIZER VACCINE 2020-05-28 00:00:00 Completed [facility] SARS-COV-2 COVID-19 PFIZER VACCINE 2020-05-28 00:00:00 Completed [facility] SARS-COV-2 COVID-19 PFIZER VACCINE 2020-05-28 00:00:00 Completed [facility] SARS-COV-2 COVID-19 PFIZER VACCINE 2020-05-28 00:00:00 Completed [facility] SARS-COV-2 COVID-19 PFIZER VACCINE 2020-05-28 00:00:00 Completed [facility] SARS-COV-2 COVID-19 PFIZER VACCINE 2020-05-28 00:00:00 Completed [facility] SARS-COV-2 COVID-19 PFIZER VACCINE 2020-05-28 00:00:00 Completed [facility] SARS-COV-2 COVID-19 PFIZER VACCINE 2020-05-28 00:00:00 Completed [facility] SARS-COV-2 COVID-19 PFIZER VACCINE 2020-05-28 00:00:00 Completed [facility] SARS-COV-2 COVID-19 PFIZER VACCINE 2020-05-28 00:00:00 Completed [facility] SARS-COV-2 COVID-19 PFIZER VACCINE 2020-05-28 00:00:00 Completed [facility] SARS-COV-2 COVID-19 PFIZER VACCINE 2020-05-28 00:00:00 Completed [facility] SARS-COV-2 COVID-19 PFIZER VACCINE 2020-05-28 00:00:00 Completed [facility] SARS-COV-2 COVID-19 PFIZER VACCINE 2020-05-28 00:00:00 Completed [facility] SARS-COV-2 COVID-19 PFIZER VACCINE 2020-05-28 00:00:00 Completed [facility] SARS-COV-2 COVID-19 PFIZER VACCINE 2020-05-28 00:00:00 Completed [facility] SARS-COV-2 COVID-19 PFIZER VACCINE 2020-05-28 00:00:00 Completed [facility] SARS-COV-2 COVID-19 PFIZER VACCINE 2020-05-28 00:00:00 Completed [facility] SARS-COV-2 COVID-19 PFIZER VACCINE 2020-05-28 00:00:00 Completed [facility] SARS-COV-2 COVID-19 PFIZER VACCINE 2020-05-28 00:00:00 Completed [facility] SARS-COV-2 COVID-19 PFIZER VACCINE 2020-05-28 00:00:00 Completed [facility] SARS-COV-2 COVID-19 PFIZER VACCINE 2020-05-28 00:00:00 Completed [facility] SARS-COV-2 COVID-19 PFIZER VACCINE 2020-05-28 00:00:00 Completed [facility] SARS-COV-2 COVID-19 PFIZER VACCINE 2020-05-28 00:00:00 Completed [facility] SARS-COV-2 COVID-19 PFIZER VACCINE 2020-05-28 00:00:00 Completed [facility] SARS-COV-2 COVID-19 PFIZER VACCINE 2020-05-28 00:00:00 Completed [facility] SARS-COV-2 COVID-19 PFIZER VACCINE 2020-05-28 00:00:00 Completed [facility] SARS-COV-2 COVID-19 PFIZER VACCINE 2020-05-28 00:00:00 Completed [facility] SARS-COV-2 COVID-19 PFIZER VACCINE 2020-05-28 00:00:00 Completed [facility] SARS-COV-2 COVID-19 PFIZER VACCINE 2020-05-28 00:00:00 Completed [facility] SARS-COV-2 COVID-19 PFIZER VACCINE 2020-05-28 00:00:00 Completed [facility] SARS-COV-2 COVID-19 PFIZER VACCINE 2020-05-28 00:00:00 Completed [facility] SARS-COV-2 COVID-19 PFIZER VACCINE 2020-05-28 00:00:00 Completed [facility] SARS-COV-2 COVID-19 PFIZER VACCINE 2020-05-28 00:00:00 Completed [facility] SARS-COV-2 COVID-19 PFIZER VACCINE 2020-05-28 00:00:00 Completed [facility] SARS-COV-2 COVID-19 PFIZER VACCINE 2020-05-28 00:00:00 Completed [facility] SARS-COV-2 COVID-19 PFIZER VACCINE 2020-05-28 00:00:00 Completed [facility] SARS-COV-2 COVID-19 PFIZER VACCINE 2020-05-28 00:00:00 Completed [facility] SARS-COV-2 COVID-19 PFIZER VACCINE 2020-05-28 00:00:00 Completed [facility] SARS-COV-2 COVID-19 PFIZER VACCINE 2020-05-28 00:00:00 Completed [facility] SARS-COV-2 COVID-19 PFIZER VACCINE 2020-05-28 00:00:00 Completed [facility] SARS-COV-2 COVID-19 PFIZER VACCINE 2020-05-28 00:00:00 Completed [facility] SARS-COV-2 COVID-19 PFIZER VACCINE 2020-05-28 00:00:00 Completed [facility] SARS-COV-2 COVID-19 PFIZER VACCINE 2020-05-28 00:00:00 Completed [facility] SARS-COV-2 COVID-19 PFIZER VACCINE 2020-05-28 00:00:00 Completed [facility] SARS-COV-2 COVID-19 PFIZER VACCINE 2020-05-28 00:00:00 Completed [facility] SARS-COV-2 COVID-19 PFIZER VACCINE 2020-05-28 00:00:00 Completed [facility] SARS-COV-2 COVID-19 PFIZER VACCINE 2020-05-28 00:00:00 Completed [facility] SARS-COV-2 COVID-19 PFIZER VACCINE 2020-05-28 00:00:00 Completed [facility] SARS-COV-2 COVID-19 PFIZER VACCINE 2020-05-28 00:00:00 Completed [facility] SARS-COV-2 COVID-19 PFIZER VACCINE 2020-05-28 00:00:00 Completed [facility] SARS-COV-2 COVID-19 PFIZER VACCINE 2020-05-28 00:00:00 Completed [facility] SARS-COV-2 COVID-19 PFIZER VACCINE 2020-05-28 00:00:00 Completed [facility] SARS-COV-2 COVID-19 PFIZER VACCINE 2020-05-28 00:00:00 Completed [facility] SARS-COV-2 COVID-19 PFIZER VACCINE 2020-05-28 00:00:00 Completed [facility] SARS-COV-2 COVID-19 PFIZER VACCINE 2020-05-28 00:00:00 Completed [facility] SARS-COV-2 COVID-19 PFIZER VACCINE 2020-05-28 00:00:00 Completed [facility] SARS-COV-2 COVID-19 PFIZER VACCINE 2020-05-28 00:00:00 Completed [facility] SARS-COV-2 COVID-19 PFIZER VACCINE 2020-05-28 00:00:00 Completed [facility] SARS-COV-2 COVID-19 PFIZER VACCINE 2020-05-28 00:00:00 Completed [facility] SARS-COV-2 COVID-19 PFIZER VACCINE 2020-05-28 00:00:00 Completed [facility] SARS-COV-2 COVID-19 PFIZER VACCINE 2020-05-28 00:00:00 Completed [facility] SARS-COV-2 COVID-19 PFIZER VACCINE 2020-05-28 00:00:00 Completed [facility] SARS-COV-2 COVID-19 PFIZER VACCINE 2020-05-28 00:00:00 Completed [facility] SARS-COV-2 COVID-19 PFIZER VACCINE 2020-05-28 00:00:00 Completed [facility] SARS-COV-2 COVID-19 PFIZER VACCINE 2020-05-28 00:00:00 Completed [facility] SARS-COV-2 COVID-19 PFIZER VACCINE 2020-05-28 00:00:00 Completed [facility] SARS-COV-2 COVID-19 PFIZER VACCINE 2020-05-28 00:00:00 Completed [facility] SARS-COV-2 COVID-19 PFIZER VACCINE 2020-05-28 00:00:00 Completed [facility] SARS-COV-2 COVID-19 PFIZER VACCINE 2020-05-28 00:00:00 Completed [facility] SARS-COV-2 COVID-19 PFIZER VACCINE 2020-05-28 00:00:00 Completed [facility] SARS-COV-2 COVID-19 PFIZER VACCINE 2020-05-28 00:00:00 Completed [facility] SARS-COV-2 COVID-19 PFIZER VACCINE 2020-05-28 00:00:00 Completed [facility] SARS-COV-2 COVID-19 PFIZER VACCINE 2020-05-28 00:00:00 Completed [facility] SARS-COV-2 COVID-19 PFIZER VACCINE 2020-05-28 00:00:00 Completed [facility] SARS-COV-2 COVID-19 PFIZER VACCINE 2020-05-28 00:00:00 Completed [facility] SARS-COV-2 COVID-19 PFIZER VACCINE 2020-05-28 00:00:00 Completed [facility] SARS-COV-2 COVID-19 PFIZER VACCINE 2020-05-28 00:00:00 Completed [facility] SARS-COV-2 COVID-19 PFIZER VACCINE 2020-05-28 00:00:00 Completed [facility] SARS-COV-2 COVID-19 PFIZER VACCINE 2020-05-28 00:00:00 Completed [facility] SARS-COV-2 COVID-19 PFIZER VACCINE 2020-05-28 00:00:00 Completed [facility] SARS-COV-2 COVID-19 PFIZER VACCINE 2020-05-28 00:00:00 Completed [facility] SARS-COV-2 COVID-19 PFIZER VACCINE 2020-05-28 00:00:00 Completed [facility] SARS-COV-2 COVID-19 PFIZER VACCINE 2020-05-28 00:00:00 Completed [facility] SARS-COV-2 COVID-19 PFIZER VACCINE 2020-05-28 00:00:00 Completed [facility] SARS-COV-2 COVID-19 PFIZER VACCINE 2020-05-28 00:00:00 Completed [facility] SARS-COV-2 COVID-19 PFIZER VACCINE 2020-05-28 00:00:00 Completed [facility] SARS-COV-2 COVID-19 PFIZER VACCINE 2020-05-28 00:00:00 Completed [facility] SARS-COV-2 COVID-19 PFIZER VACCINE 2020-05-28 00:00:00 Completed [facility] SARS-COV-2 COVID-19 PFIZER VACCINE 2020-05-28 00:00:00 Completed [facility] SARS-COV-2 COVID-19 PFIZER VACCINE 2020-05-28 00:00:00 Completed [facility] SARS-COV-2 COVID-19 PFIZER VACCINE 2020-05-28 00:00:00 Completed [facility] SARS-COV-2 COVID-19 PFIZER VACCINE 2020-05-28 00:00:00 Completed [facility] SARS-COV-2 COVID-19 PFIZER VACCINE 2020-05-28 00:00:00 Completed [facility] SARS-COV-2 COVID-19 PFIZER VACCINE 2020-05-28 00:00:00 Completed [facility] SARS-COV-2 COVID-19 PFIZER VACCINE 2020-05-28 00:00:00 Completed [facility] SARS-COV-2 COVID-19 PFIZER VACCINE 2020-05-28 00:00:00 Completed [facility] SARS-COV-2 COVID-19 PFIZER VACCINE 2020-05-28 00:00:00 Completed [facility] SARS-COV-2 COVID-19 PFIZER VACCINE 2020-05-28 00:00:00 Completed [facility] SARS-COV-2 COVID-19 PFIZER VACCINE 2020-05-28 00:00:00 Completed [facility] SARS-COV-2 COVID-19 PFIZER VACCINE 2020-05-28 00:00:00 Completed [facility] SARS-COV-2 COVID-19 PFIZER VACCINE 2020-05-28 00:00:00 Completed [facility] SARS-COV-2 COVID-19 PFIZER VACCINE 2020-05-28 00:00:00 Completed [facility] SARS-COV-2 COVID-19 PFIZER VACCINE 2020-05-28 00:00:00 Completed [facility] SARS-COV-2 COVID-19 PFIZER VACCINE 2020-05-28 00:00:00 Completed [facility] SARS-COV-2 COVID-19 PFIZER VACCINE 2020-05-28 00:00:00 Completed [facility] SARS-COV-2 COVID-19 PFIZER VACCINE 2020-05-28 00:00:00 Completed [facility] SARS-COV-2 COVID-19 PFIZER VACCINE 2020-05-28 00:00:00 Completed [facility] SARS-COV-2 COVID-19 PFIZER VACCINE 2020-05-28 00:00:00 Completed [facility] SARS-COV-2 COVID-19 PFIZER VACCINE 2020-05-28 00:00:00 Completed [facility] SARS-COV-2 COVID-19 PFIZER VACCINE 2020-05-28 00:00:00 Completed [facility] Influenza High Dose 2017-06-01 00:00:00 Completed [facility] Pneumococcal 13 Conjugate, PCV13 (Prevnar 13) 2017-06-01 00:00:00 Completed [facility] Influenza High Dose 2017-06-01 00:00:00 Completed [facility] Pneumococcal 13 Conjugate, PCV13 (Prevnar 13) 2017-06-01 00:00:00 Completed [facility] Influenza High Dose 2017-06-01 00:00:00 Completed [facility] Pneumococcal 13 Conjugate, PCV13 (Prevnar 13) 2017-06-01 00:00:00 Completed [facility] Influenza High Dose 2017-06-01 00:00:00 Completed [facility] Pneumococcal 13 Conjugate, PCV13 (Prevnar 13) 2017-06-01 00:00:00 Completed [facility] Influenza High Dose 2017-06-01 00:00:00 Completed [facility] Pneumococcal 13 Conjugate, PCV13 (Prevnar 13) 2017-06-01 00:00:00 Completed [facility] Influenza High Dose 2017-06-01 00:00:00 Completed [facility] Pneumococcal 13 Conjugate, PCV13 (Prevnar 13) 2017-06-01 00:00:00 Completed [facility] Influenza High Dose 2017-06-01 00:00:00 Completed [facility] Pneumococcal 13 Conjugate, PCV13 (Prevnar 13) 2017-06-01 00:00:00 Completed [facility] Influenza High Dose 2017-06-01 00:00:00 Completed [facility] Pneumococcal 13 Conjugate, PCV13 (Prevnar 13) 2017-06-01 00:00:00 Completed [facility] Influenza High Dose 2017-06-01 00:00:00 Completed [facility] Pneumococcal 13 Conjugate, PCV13 (Prevnar 13) 2017-06-01 00:00:00 Completed [facility] Influenza High Dose 2017-06-01 00:00:00 Completed [facility] Pneumococcal 13 Conjugate, PCV13 (Prevnar 13) 2017-06-01 00:00:00 Completed [facility] Influenza High Dose 2017-06-01 00:00:00 Completed [facility] Pneumococcal 13 Conjugate, PCV13 (Prevnar 13) 2017-06-01 00:00:00 Completed [facility] Influenza High Dose 2017-06-01 00:00:00 Completed [facility] Pneumococcal 13 Conjugate, PCV13 (Prevnar 13) 2017-06-01 00:00:00 Completed [facility] Influenza High Dose 2017-06-01 00:00:00 Completed [facility] Pneumococcal 13 Conjugate, PCV13 (Prevnar 13) 2017-06-01 00:00:00 Completed [facility] Influenza High Dose 2017-06-01 00:00:00 Completed [facility] Pneumococcal 13 Conjugate, PCV13 (Prevnar 13) 2017-06-01 00:00:00 Completed [facility] Influenza High Dose 2017-06-01 00:00:00 Completed [facility] Pneumococcal 13 Conjugate, PCV13 (Prevnar 13) 2017-06-01 00:00:00 Completed [facility] Influenza High Dose 2017-06-01 00:00:00 Completed [facility] Pneumococcal 13 Conjugate, PCV13 (Prevnar 13) 2017-06-01 00:00:00 Completed [facility] Influenza High Dose 2017-06-01 00:00:00 Completed [facility] Pneumococcal 13 Conjugate, PCV13 (Prevnar 13) 2017-06-01 00:00:00 Completed [facility] Influenza High Dose 2017-06-01 00:00:00 Completed [facility] Pneumococcal 13 Conjugate, PCV13 (Prevnar 13) 2017-06-01 00:00:00 Completed [facility] Influenza High Dose 2017-06-01 00:00:00 Completed [facility] Pneumococcal 13 Conjugate, PCV13 (Prevnar 13) 2017-06-01 00:00:00 Completed [facility] Influenza High Dose 2017-06-01 00:00:00 Completed [facility] Pneumococcal 13 Conjugate, PCV13 (Prevnar 13) 2017-06-01 00:00:00 Completed [facility] Influenza High Dose 2017-06-01 00:00:00 Completed [facility] Pneumococcal 13 Conjugate, PCV13 (Prevnar 13) 2017-06-01 00:00:00 Completed [facility] Influenza High Dose 2017-06-01 00:00:00 Completed [facility] Pneumococcal 13 Conjugate, PCV13 (Prevnar 13) 2017-06-01 00:00:00 Completed [facility] Influenza High Dose 2017-06-01 00:00:00 Completed [facility] Pneumococcal 13 Conjugate, PCV13 (Prevnar 13) 2017-06-01 00:00:00 Completed [facility] Influenza High Dose 2017-06-01 00:00:00 Completed [facility] Pneumococcal 13 Conjugate, PCV13 (Prevnar 13) 2017-06-01 00:00:00 Completed [facility] Influenza High Dose 2017-06-01 00:00:00 Completed [facility] Pneumococcal 13 Conjugate, PCV13 (Prevnar 13) 2017-06-01 00:00:00 Completed [facility] Influenza High Dose 2017-06-01 00:00:00 Completed [facility] Pneumococcal 13 Conjugate, PCV13 (Prevnar 13) 2017-06-01 00:00:00 Completed [facility] Influenza High Dose 2017-06-01 00:00:00 Completed [facility] Pneumococcal 13 Conjugate, PCV13 (Prevnar 13) 2017-06-01 00:00:00 Completed [facility] Influenza High Dose 2017-06-01 00:00:00 Completed [facility] Pneumococcal 13 Conjugate, PCV13 (Prevnar 13) 2017-06-01 00:00:00 Completed [facility] Influenza High Dose 2017-06-01 00:00:00 Completed [facility] Pneumococcal 13 Conjugate, PCV13 (Prevnar 13) 2017-06-01 00:00:00 Completed [facility] Influenza High Dose 2017-06-01 00:00:00 Completed [facility] Pneumococcal 13 Conjugate, PCV13 (Prevnar 13) 2017-06-01 00:00:00 Completed [facility] Influenza High Dose 2017-06-01 00:00:00 Completed [facility] Pneumococcal 13 Conjugate, PCV13 (Prevnar 13) 2017-06-01 00:00:00 Completed [facility] Influenza High Dose 2017-06-01 00:00:00 Completed [facility] Pneumococcal 13 Conjugate, PCV13 (Prevnar 13) 2017-06-01 00:00:00 Completed [facility] Influenza High Dose 2017-06-01 00:00:00 Completed [facility] Pneumococcal 13 Conjugate, PCV13 (Prevnar 13) 2017-06-01 00:00:00 Completed [facility] Influenza High Dose 2017-06-01 00:00:00 Completed [facility] Pneumococcal 13 Conjugate, PCV13 (Prevnar 13) 2017-06-01 00:00:00 Completed [facility] Influenza High Dose 2017-06-01 00:00:00 Completed [facility] Pneumococcal 13 Conjugate, PCV13 (Prevnar 13) 2017-06-01 00:00:00 Completed [facility] Influenza High Dose 2017-06-01 00:00:00 Completed [facility] Pneumococcal 13 Conjugate, PCV13 (Prevnar 13) 2017-06-01 00:00:00 Completed [facility] Influenza High Dose 2017-06-01 00:00:00 Completed [facility] Pneumococcal 13 Conjugate, PCV13 (Prevnar 13) 2017-06-01 00:00:00 Completed [facility] Influenza High Dose 2017-06-01 00:00:00 Completed [facility] Pneumococcal 13 Conjugate, PCV13 (Prevnar 13) 2017-06-01 00:00:00 Completed [facility] Influenza High Dose 2017-06-01 00:00:00 Completed [facility] Pneumococcal 13 Conjugate, PCV13 (Prevnar 13) 2017-06-01 00:00:00 Completed [facility] Influenza High Dose 2017-06-01 00:00:00 Completed [facility] Pneumococcal 13 Conjugate, PCV13 (Prevnar 13) 2017-06-01 00:00:00 Completed [facility] Influenza High Dose 2017-06-01 00:00:00 Completed [facility] Pneumococcal 13 Conjugate, PCV13 (Prevnar 13) 2017-06-01 00:00:00 Completed [facility] Influenza High Dose 2017-06-01 00:00:00 Completed [facility] Pneumococcal 13 Conjugate, PCV13 (Prevnar 13) 2017-06-01 00:00:00 Completed [facility] Influenza High Dose 2017-06-01 00:00:00 Completed [facility] Pneumococcal 13 Conjugate, PCV13 (Prevnar 13) 2017-06-01 00:00:00 Completed [facility] Influenza High Dose 2017-06-01 00:00:00 Completed [facility] Pneumococcal 13 Conjugate, PCV13 (Prevnar 13) 2017-06-01 00:00:00 Completed [facility] Influenza High Dose 2017-06-01 00:00:00 Completed [facility] Pneumococcal 13 Conjugate, PCV13 (Prevnar 13) 2017-06-01 00:00:00 Completed [facility] Influenza High Dose 2017-06-01 00:00:00 Completed [facility] Pneumococcal 13 Conjugate, PCV13 (Prevnar 13) 2017-06-01 00:00:00 Completed [facility] Influenza High Dose 2017-06-01 00:00:00 Completed [facility] Pneumococcal 13 Conjugate, PCV13 (Prevnar 13) 2017-06-01 00:00:00 Completed [facility] Influenza High Dose 2017-06-01 00:00:00 Completed [facility] Pneumococcal 13 Conjugate, PCV13 (Prevnar 13) 2017-06-01 00:00:00 Completed [facility] Influenza High Dose 2017-06-01 00:00:00 Completed [facility] Pneumococcal 13 Conjugate, PCV13 (Prevnar 13) 2017-06-01 00:00:00 Completed [facility] Influenza High Dose 2017-06-01 00:00:00 Completed [facility] Pneumococcal 13 Conjugate, PCV13 (Prevnar 13) 2017-06-01 00:00:00 Completed [facility] Influenza High Dose 2017-06-01 00:00:00 Completed [facility] Pneumococcal 13 Conjugate, PCV13 (Prevnar 13) 2017-06-01 00:00:00 Completed [facility] Influenza High Dose 2017-06-01 00:00:00 Completed [facility] Pneumococcal 13 Conjugate, PCV13 (Prevnar 13) 2017-06-01 00:00:00 Completed [facility] Influenza High Dose 2017-06-01 00:00:00 Completed [facility] Pneumococcal 13 Conjugate, PCV13 (Prevnar 13) 2017-06-01 00:00:00 Completed [facility] Influenza High Dose 2017-06-01 00:00:00 Completed [facility] Pneumococcal 13 Conjugate, PCV13 (Prevnar 13) 2017-06-01 00:00:00 Completed [facility] Influenza High Dose 2017-06-01 00:00:00 Completed [facility] Pneumococcal 13 Conjugate, PCV13 (Prevnar 13) 2017-06-01 00:00:00 Completed [facility] Influenza High Dose 2017-06-01 00:00:00 Completed [facility] Pneumococcal 13 Conjugate, PCV13 (Prevnar 13) 2017-06-01 00:00:00 Completed [facility] Influenza High Dose 2017-06-01 00:00:00 Completed [facility] Pneumococcal 13 Conjugate, PCV13 (Prevnar 13) 2017-06-01 00:00:00 Completed [facility] Influenza High Dose 2017-06-01 00:00:00 Completed [facility] Pneumococcal 13 Conjugate, PCV13 (Prevnar 13) 2017-06-01 00:00:00 Completed [facility] Influenza High Dose 2017-06-01 00:00:00 Completed [facility] Pneumococcal 13 Conjugate, PCV13 (Prevnar 13) 2017-06-01 00:00:00 Completed [facility] Influenza High Dose 2017-06-01 00:00:00 Completed [facility] Pneumococcal 13 Conjugate, PCV13 (Prevnar 13) 2017-06-01 00:00:00 Completed [facility] Influenza High Dose 2017-06-01 00:00:00 Completed [facility] Pneumococcal 13 Conjugate, PCV13 (Prevnar 13) 2017-06-01 00:00:00 Completed [facility] Influenza High Dose 2017-06-01 00:00:00 Completed [facility] Pneumococcal 13 Conjugate, PCV13 (Prevnar 13) 2017-06-01 00:00:00 Completed [facility] Influenza High Dose 2017-06-01 00:00:00 Completed [facility] Pneumococcal 13 Conjugate, PCV13 (Prevnar 13) 2017-06-01 00:00:00 Completed [facility] Influenza High Dose 2017-06-01 00:00:00 Completed [facility] Pneumococcal 13 Conjugate, PCV13 (Prevnar 13) 2017-06-01 00:00:00 Completed [facility] Influenza High Dose 2017-06-01 00:00:00 Completed [facility] Pneumococcal 13 Conjugate, PCV13 (Prevnar 13) 2017-06-01 00:00:00 Completed [facility] Influenza High Dose 2017-06-01 00:00:00 Completed [facility] Pneumococcal 13 Conjugate, PCV13 (Prevnar 13) 2017-06-01 00:00:00 Completed [facility] Influenza High Dose 2017-06-01 00:00:00 Completed [facility] Pneumococcal 13 Conjugate, PCV13 (Prevnar 13) 2017-06-01 00:00:00 Completed [facility] Influenza High Dose 2017-06-01 00:00:00 Completed [facility] Pneumococcal 13 Conjugate, PCV13 (Prevnar 13) 2017-06-01 00:00:00 Completed [facility] Influenza High Dose 2017-06-01 00:00:00 Completed [facility] Pneumococcal 13 Conjugate, PCV13 (Prevnar 13) 2017-06-01 00:00:00 Completed [facility] Influenza High Dose 2017-06-01 00:00:00 Completed [facility] Pneumococcal 13 Conjugate, PCV13 (Prevnar 13) 2017-06-01 00:00:00 Completed [facility] Influenza High Dose 2017-06-01 00:00:00 Completed [facility] Pneumococcal 13 Conjugate, PCV13 (Prevnar 13) 2017-06-01 00:00:00 Completed [facility] Influenza High Dose 2017-06-01 00:00:00 Completed [facility] Pneumococcal 13 Conjugate, PCV13 (Prevnar 13) 2017-06-01 00:00:00 Completed [facility] Influenza High Dose 2017-06-01 00:00:00 Completed [facility] Pneumococcal 13 Conjugate, PCV13 (Prevnar 13) 2017-06-01 00:00:00 Completed [facility] Influenza High Dose 2017-06-01 00:00:00 Completed [facility] Pneumococcal 13 Conjugate, PCV13 (Prevnar 13) 2017-06-01 00:00:00 Completed [facility] Influenza High Dose 2017-06-01 00:00:00 Completed [facility] Pneumococcal 13 Conjugate, PCV13 (Prevnar 13) 2017-06-01 00:00:00 Completed [facility] Influenza High Dose 2017-06-01 00:00:00 Completed [facility] Pneumococcal 13 Conjugate, PCV13 (Prevnar 13) 2017-06-01 00:00:00 Completed [facility] Influenza High Dose 2017-06-01 00:00:00 Completed [facility] Pneumococcal 13 Conjugate, PCV13 (Prevnar 13) 2017-06-01 00:00:00 Completed [facility] Influenza High Dose 2017-06-01 00:00:00 Completed [facility] Pneumococcal 13 Conjugate, PCV13 (Prevnar 13) 2017-06-01 00:00:00 Completed [facility] Influenza High Dose 2017-06-01 00:00:00 Completed [facility] Pneumococcal 13 Conjugate, PCV13 (Prevnar 13) 2017-06-01 00:00:00 Completed [facility] Influenza High Dose 2017-06-01 00:00:00 Completed [facility] Pneumococcal 13 Conjugate, PCV13 (Prevnar 13) 2017-06-01 00:00:00 Completed [facility] Influenza High Dose 2017-06-01 00:00:00 Completed [facility] Pneumococcal 13 Conjugate, PCV13 (Prevnar 13) 2017-06-01 00:00:00 Completed [facility] Influenza High Dose 2017-06-01 00:00:00 Completed [facility] Pneumococcal 13 Conjugate, PCV13 (Prevnar 13) 2017-06-01 00:00:00 Completed [facility] Influenza High Dose 2017-06-01 00:00:00 Completed [facility] Pneumococcal 13 Conjugate, PCV13 (Prevnar 13) 2017-06-01 00:00:00 Completed [facility] Influenza High Dose 2017-06-01 00:00:00 Completed [facility] Pneumococcal 13 Conjugate, PCV13 (Prevnar 13) 2017-06-01 00:00:00 Completed [facility] Influenza High Dose 2017-06-01 00:00:00 Completed [facility] Pneumococcal 13 Conjugate, PCV13 (Prevnar 13) 2017-06-01 00:00:00 Completed [facility] Influenza High Dose 2017-06-01 00:00:00 Completed [facility] Pneumococcal 13 Conjugate, PCV13 (Prevnar 13) 2017-06-01 00:00:00 Completed [facility] Influenza High Dose 2017-06-01 00:00:00 Completed [facility] Pneumococcal 13 Conjugate, PCV13 (Prevnar 13) 2017-06-01 00:00:00 Completed [facility] Influenza High Dose 2017-06-01 00:00:00 Completed [facility] Pneumococcal 13 Conjugate, PCV13 (Prevnar 13) 2017-06-01 00:00:00 Completed [facility] Influenza High Dose 2017-06-01 00:00:00 Completed [facility] Pneumococcal 13 Conjugate, PCV13 (Prevnar 13) 2017-06-01 00:00:00 Completed [facility] Influenza High Dose 2017-06-01 00:00:00 Completed [facility] Pneumococcal 13 Conjugate, PCV13 (Prevnar 13) 2017-06-01 00:00:00 Completed [facility] Influenza High Dose 2017-06-01 00:00:00 Completed [facility] Pneumococcal 13 Conjugate, PCV13 (Prevnar 13) 2017-06-01 00:00:00 Completed [facility] Influenza High Dose 2017-06-01 00:00:00 Completed [facility] Pneumococcal 13 Conjugate, PCV13 (Prevnar 13) 2017-06-01 00:00:00 Completed [facility] Influenza High Dose 2017-06-01 00:00:00 Completed [facility] Pneumococcal 13 Conjugate, PCV13 (Prevnar 13) 2017-06-01 00:00:00 Completed [facility] Influenza High Dose 2017-06-01 00:00:00 Completed [facility] Pneumococcal 13 Conjugate, PCV13 (Prevnar 13) 2017-06-01 00:00:00 Completed [facility] Influenza High Dose 2017-06-01 00:00:00 Completed [facility] Pneumococcal 13 Conjugate, PCV13 (Prevnar 13) 2017-06-01 00:00:00 Completed [facility] Influenza High Dose 2017-06-01 00:00:00 Completed [facility] Pneumococcal 13 Conjugate, PCV13 (Prevnar 13) 2017-06-01 00:00:00 Completed [facility] Influenza High Dose 2017-06-01 00:00:00 Completed [facility] Pneumococcal 13 Conjugate, PCV13 (Prevnar 13) 2017-06-01 00:00:00 Completed [facility] Influenza High Dose 2017-06-01 00:00:00 Completed [facility] Pneumococcal 13 Conjugate, PCV13 (Prevnar 13) 2017-06-01 00:00:00 Completed [facility] Influenza High Dose 2017-06-01 00:00:00 Completed [facility] Pneumococcal 13 Conjugate, PCV13 (Prevnar 13) 2017-06-01 00:00:00 Completed [facility] Influenza High Dose 2017-06-01 00:00:00 Completed [facility] Pneumococcal 13 Conjugate, PCV13 (Prevnar 13) 2017-06-01 00:00:00 Completed [facility] Influenza High Dose 2017-06-01 00:00:00 Completed [facility] Pneumococcal 13 Conjugate, PCV13 (Prevnar 13) 2017-06-01 00:00:00 Completed [facility] Influenza High Dose 2017-06-01 00:00:00 Completed [facility] Pneumococcal 13 Conjugate, PCV13 (Prevnar 13) 2017-06-01 00:00:00 Completed [facility] Influenza High Dose 2017-06-01 00:00:00 Completed [facility] Pneumococcal 13 Conjugate, PCV13 (Prevnar 13) 2017-06-01 00:00:00 Completed [facility] Influenza High Dose 2017-06-01 00:00:00 Completed [facility] Pneumococcal 13 Conjugate, PCV13 (Prevnar 13) 2017-06-01 00:00:00 Completed [facility] Influenza High Dose 2017-06-01 00:00:00 Completed [facility] Pneumococcal 13 Conjugate, PCV13 (Prevnar 13) 2017-06-01 00:00:00 Completed [facility] Influenza High Dose 2017-06-01 00:00:00 Completed [facility] Pneumococcal 13 Conjugate, PCV13 (Prevnar 13) 2017-06-01 00:00:00 Completed [facility] Influenza High Dose 2017-06-01 00:00:00 Completed [facility] Pneumococcal 13 Conjugate, PCV13 (Prevnar 13) 2017-06-01 00:00:00 Completed [facility] Influenza High Dose 2017-06-01 00:00:00 Completed [facility] Pneumococcal 13 Conjugate, PCV13 (Prevnar 13) 2017-06-01 00:00:00 Completed [facility] Influenza High Dose 2017-06-01 00:00:00 Completed [facility] Pneumococcal 13 Conjugate, PCV13 (Prevnar 13) 2017-06-01 00:00:00 Completed [facility] Influenza High Dose 2017-06-01 00:00:00 Completed [facility] Pneumococcal 13 Conjugate, PCV13 (Prevnar 13) 2017-06-01 00:00:00 Completed [facility] Influenza High Dose 2017-06-01 00:00:00 Completed [facility] Pneumococcal 13 Conjugate, PCV13 (Prevnar 13) 2017-06-01 00:00:00 Completed [facility] Influenza High Dose 2017-06-01 00:00:00 Completed [facility] Pneumococcal 13 Conjugate, PCV13 (Prevnar 13) 2017-06-01 00:00:00 Completed [facility] Influenza High Dose 2017-06-01 00:00:00 Completed [facility] Pneumococcal 13 Conjugate, PCV13 (Prevnar 13) 2017-06-01 00:00:00 Completed [facility] Influenza High Dose 2017-06-01 00:00:00 Completed [facility] Pneumococcal 13 Conjugate, PCV13 (Prevnar 13) 2017-06-01 00:00:00 Completed [facility] Influenza High Dose 2017-06-01 00:00:00 Completed [facility] Pneumococcal 13 Conjugate, PCV13 (Prevnar 13) 2017-06-01 00:00:00 Completed [facility] Influenza High Dose 2017-06-01 00:00:00 Completed [facility] Pneumococcal 13 Conjugate, PCV13 (Prevnar 13) 2017-06-01 00:00:00 Completed [facility] Influenza High Dose 2017-06-01 00:00:00 Completed [facility] Pneumococcal 13 Conjugate, PCV13 (Prevnar 13) 2017-06-01 00:00:00 Completed [facility] Influenza High Dose 2017-06-01 00:00:00 Completed [facility] Pneumococcal 13 Conjugate, PCV13 (Prevnar 13) 2017-06-01 00:00:00 Completed [facility] Influenza High Dose 2017-06-01 00:00:00 Completed [facility] Pneumococcal 13 Conjugate, PCV13 (Prevnar 13) 2017-06-01 00:00:00 Completed [facility] Influenza High Dose 2017-06-01 00:00:00 Completed [facility] Pneumococcal 13 Conjugate, PCV13 (Prevnar 13) 2017-06-01 00:00:00 Completed [facility] Influenza High Dose 2017-06-01 00:00:00 Completed [facility] Pneumococcal 13 Conjugate, PCV13 (Prevnar 13) 2017-06-01 00:00:00 Completed [facility] Influenza High Dose 2017-06-01 00:00:00 Completed [facility] Pneumococcal 13 Conjugate, PCV13 (Prevnar 13) 2017-06-01 00:00:00 Completed [facility] Influenza High Dose 2017-06-01 00:00:00 Completed [facility] Pneumococcal 13 Conjugate, PCV13 (Prevnar 13) 2017-06-01 00:00:00 Completed [facility] Influenza High Dose 2017-06-01 00:00:00 Completed [facility] Pneumococcal 13 Conjugate, PCV13 (Prevnar 13) 2017-06-01 00:00:00 Completed [facility] Influenza High Dose 2017-06-01 00:00:00 Completed [facility] Pneumococcal 13 Conjugate, PCV13 (Prevnar 13) 2017-06-01 00:00:00 Completed [facility] Influenza High Dose 2017-06-01 00:00:00 Completed [facility] Pneumococcal 13 Conjugate, PCV13 (Prevnar 13) 2017-06-01 00:00:00 Completed [facility] Influenza High Dose 2017-06-01 00:00:00 Completed [facility] Pneumococcal 13 Conjugate, PCV13 (Prevnar 13) 2017-06-01 00:00:00 Completed [facility] Influenza High Dose 2017-06-01 00:00:00 Completed [facility] Pneumococcal 13 Conjugate, PCV13 (Prevnar 13) 2017-06-01 00:00:00 Completed [facility] Influenza High Dose 2017-06-01 00:00:00 Completed [facility] Pneumococcal 13 Conjugate, PCV13 (Prevnar 13) 2017-06-01 00:00:00 Completed [facility] Influenza High Dose 2017-06-01 00:00:00 Completed [facility] Pneumococcal 13 Conjugate, PCV13 (Prevnar 13) 2017-06-01 00:00:00 Completed [facility] Influenza High Dose 2017-06-01 00:00:00 Completed [facility] Pneumococcal 13 Conjugate, PCV13 (Prevnar 13) 2017-06-01 00:00:00 Completed [facility] Influenza High Dose 2017-06-01 00:00:00 Completed [facility] Pneumococcal 13 Conjugate, PCV13 (Prevnar 13) 2017-06-01 00:00:00 Completed [facility] Influenza High Dose 2017-06-01 00:00:00 Completed [facility] Pneumococcal 13 Conjugate, PCV13 (Prevnar 13) 2017-06-01 00:00:00 Completed [facility] Influenza High Dose 2017-06-01 00:00:00 Completed [facility] Pneumococcal 13 Conjugate, PCV13 (Prevnar 13) 2017-06-01 00:00:00 Completed [facility] Influenza High Dose 2017-06-01 00:00:00 Completed [facility] Pneumococcal 13 Conjugate, PCV13 (Prevnar 13) 2017-06-01 00:00:00 Completed [facility] Influenza High Dose 2017-06-01 00:00:00 Completed [facility] Pneumococcal 13 Conjugate, PCV13 (Prevnar 13) 2017-06-01 00:00:00 Completed [facility] Influenza High Dose 2017-06-01 00:00:00 Completed [facility] Pneumococcal 13 Conjugate, PCV13 (Prevnar 13) 2017-06-01 00:00:00 Completed [facility] Influenza High Dose 2017-06-01 00:00:00 Completed [facility] Pneumococcal 13 Conjugate, PCV13 (Prevnar 13) 2017-06-01 00:00:00 Completed [facility] Influenza High Dose 2017-06-01 00:00:00 Completed [facility] Pneumococcal 13 Conjugate, PCV13 (Prevnar 13) 2017-06-01 00:00:00 Completed [facility] Influenza High Dose 2017-06-01 00:00:00 Completed [facility] Pneumococcal 13 Conjugate, PCV13 (Prevnar 13) 2017-06-01 00:00:00 Completed [facility] Influenza High Dose 2017-06-01 00:00:00 Completed [facility] Pneumococcal 13 Conjugate, PCV13 (Prevnar 13) 2017-06-01 00:00:00 Completed [facility] Influenza High Dose 2017-06-01 00:00:00 Completed [facility] Pneumococcal 13 Conjugate, PCV13 (Prevnar 13) 2017-06-01 00:00:00 Completed [facility] Influenza High Dose 2017-06-01 00:00:00 Completed [facility] Pneumococcal 13 Conjugate, PCV13 (Prevnar 13) 2017-06-01 00:00:00 Completed [facility] Influenza High Dose 2017-06-01 00:00:00 Completed [facility] Pneumococcal 13 Conjugate, PCV13 (Prevnar 13) 2017-06-01 00:00:00 Completed [facility] Influenza High Dose 2017-06-01 00:00:00 Completed [facility] Pneumococcal 13 Conjugate, PCV13 (Prevnar 13) 2017-06-01 00:00:00 Completed [facility] Influenza High Dose 2017-06-01 00:00:00 Completed [facility] Pneumococcal 13 Conjugate, PCV13 (Prevnar 13) 2017-06-01 00:00:00 Completed [facility] Influenza High Dose 2017-06-01 00:00:00 Completed [facility] Pneumococcal 13 Conjugate, PCV13 (Prevnar 13) 2017-06-01 00:00:00 Completed [facility] Influenza High Dose 2017-06-01 00:00:00 Completed [facility] Pneumococcal 13 Conjugate, PCV13 (Prevnar 13) 2017-06-01 00:00:00 Completed [facility] Influenza High Dose 2017-06-01 00:00:00 Completed [facility] Pneumococcal 13 Conjugate, PCV13 (Prevnar 13) 2017-06-01 00:00:00 Completed [facility] Influenza High Dose 2017-06-01 00:00:00 Completed [facility] Pneumococcal 13 Conjugate, PCV13 (Prevnar 13) 2017-06-01 00:00:00 Completed [facility] Influenza High Dose 2017-06-01 00:00:00 Completed [facility] Pneumococcal 13 Conjugate, PCV13 (Prevnar 13) 2017-06-01 00:00:00 Completed [facility] Influenza High Dose 2017-06-01 00:00:00 Completed [facility] Pneumococcal 13 Conjugate, PCV13 (Prevnar 13) 2017-06-01 00:00:00 Completed [facility] Influenza High Dose 2017-06-01 00:00:00 Completed [facility] Pneumococcal 13 Conjugate, PCV13 (Prevnar 13) 2017-06-01 00:00:00 Completed [facility] Influenza High Dose Unknown Completed [facility] Pneumococcal 13 Conjugate, PCV13 (Prevnar 13) Unknown Completed [facility] SARS-COV-2 COVID-19 PFIZER VACCINE Unknown Completed [facility] SARS-COV-2 COVID-19 PFIZER VACCINE Unknown Completed [facility] SARS-COV-2 COVID-19 PFIZER VACCINE Unknown Completed [facility] Pneumococcal 20 Conjugate, PCV20 (Prevnar 20) Unknown Completed [facility] Influenza High Dose Unknown Completed [facility] Pneumococcal 13 Conjugate, PCV13 (Prevnar 13) Unknown Completed [facility] SARS-COV-2 COVID-19 PFIZER VACCINE Unknown Completed [facility] SARS-COV-2 COVID-19 PFIZER VACCINE Unknown Completed [facility] SARS-COV-2 COVID-19 PFIZER VACCINE Unknown Completed [facility] Pneumococcal 20 Conjugate, PCV20 (Prevnar 20) Unknown Completed [facility] Influenza High Dose Unknown Completed [facility] Pneumococcal 13 Conjugate, PCV13 (Prevnar 13) Unknown Completed [facility] SARS-COV-2 COVID-19 PFIZER VACCINE Unknown Completed [facility] SARS-COV-2 COVID-19 PFIZER VACCINE Unknown Completed [facility] SARS-COV-2 COVID-19 PFIZER VACCINE Unknown Completed [facility] Pneumococcal 20 Conjugate, PCV20 (Prevnar 20) Unknown Completed [facility] Influenza High Dose Unknown Completed [facility] Pneumococcal 13 Conjugate, PCV13 (Prevnar 13) Unknown Completed [facility] SARS-COV-2 COVID-19 PFIZER VACCINE Unknown Completed [facility] SARS-COV-2 COVID-19 PFIZER VACCINE Unknown Completed [facility] SARS-COV-2 COVID-19 PFIZER VACCINE Unknown Completed [facility] Pneumococcal 20 Conjugate, PCV20 (Prevnar 20) Unknown Completed [facility] Influenza High Dose Unknown Completed [facility] Pneumococcal 13 Conjugate, PCV13 (Prevnar 13) Unknown Completed [facility] SARS-COV-2 COVID-19 PFIZER VACCINE Unknown Completed [facility] SARS-COV-2 COVID-19 PFIZER VACCINE Unknown Completed [facility] SARS-COV-2 COVID-19 PFIZER VACCINE Unknown Completed [facility] Pneumococcal 20 Conjugate, PCV20 (Prevnar 20) Unknown Completed [facility] Influenza High Dose Unknown Completed [facility] Pneumococcal 13 Conjugate, PCV13 (Prevnar 13) Unknown Completed [facility] SARS-COV-2 COVID-19 PFIZER VACCINE Unknown Completed [facility] SARS-COV-2 COVID-19 PFIZER VACCINE Unknown Completed [facility] SARS-COV-2 COVID-19 PFIZER VACCINE Unknown Completed [facility] Pneumococcal 20 Conjugate, PCV20 (Prevnar 20) Unknown Completed [facility] Influenza High Dose Unknown Completed [facility] Pneumococcal 13 Conjugate, PCV13 (Prevnar 13) Unknown Completed [facility] SARS-COV-2 COVID-19 PFIZER VACCINE Unknown Completed [facility] SARS-COV-2 COVID-19 PFIZER VACCINE Unknown Completed [facility] SARS-COV-2 COVID-19 PFIZER VACCINE Unknown Completed [facility] Pneumococcal 20 Conjugate, PCV20 (Prevnar 20) Unknown Completed [facility] Influenza High Dose Unknown Completed [facility] Pneumococcal 13 Conjugate, PCV13 (Prevnar 13) Unknown Completed [facility] SARS-COV-2 COVID-19 PFIZER VACCINE Unknown Completed [facility] SARS-COV-2 COVID-19 PFIZER VACCINE Unknown Completed [facility] SARS-COV-2 COVID-19 PFIZER VACCINE Unknown Completed [facility] Pneumococcal 20 Conjugate, PCV20 (Prevnar 20) Unknown Completed [facility] Influenza High Dose Unknown Completed [facility] Pneumococcal 13 Conjugate, PCV13 (Prevnar 13) Unknown Completed [facility] SARS-COV-2 COVID-19 PFIZER VACCINE Unknown Completed [facility] SARS-COV-2 COVID-19 PFIZER VACCINE Unknown Completed [facility] SARS-COV-2 COVID-19 PFIZER VACCINE Unknown Completed [facility] Pneumococcal 20 Conjugate, PCV20 (Prevnar 20) Unknown Completed [facility] Influenza High Dose Unknown Completed [facility] Pneumococcal 13 Conjugate, PCV13 (Prevnar 13) Unknown Completed [facility] SARS-COV-2 COVID-19 PFIZER VACCINE Unknown Completed [facility] SARS-COV-2 COVID-19 PFIZER VACCINE Unknown Completed [facility] SARS-COV-2 COVID-19 PFIZER VACCINE Unknown Completed [facility] Influenza High Dose Unknown Completed [facility] Pneumococcal 13 Conjugate, PCV13 (Prevnar 13) Unknown Completed [facility] SARS-COV-2 COVID-19 PFIZER VACCINE Unknown Completed [facility] SARS-COV-2 COVID-19 PFIZER VACCINE Unknown Completed [facility] SARS-COV-2 COVID-19 PFIZER VACCINE Unknown Completed [facility] Influenza High Dose Unknown Completed [facility] Pneumococcal 13 Conjugate, PCV13 (Prevnar 13) Unknown Completed [facility] SARS-COV-2 COVID-19 PFIZER VACCINE Unknown Completed [facility] SARS-COV-2 COVID-19 PFIZER VACCINE Unknown Completed [facility] SARS-COV-2 COVID-19 PFIZER VACCINE Unknown Completed [facility] Influenza High Dose Unknown Completed [facility] Pneumococcal 13 Conjugate, PCV13 (Prevnar 13) Unknown Completed [facility] SARS-COV-2 COVID-19 PFIZER VACCINE Unknown Completed [facility] SARS-COV-2 COVID-19 PFIZER VACCINE Unknown Completed [facility] SARS-COV-2 COVID-19 PFIZER VACCINE Unknown Completed [facility] Influenza High Dose Unknown Completed [facility] Pneumococcal 13 Conjugate, PCV13 (Prevnar 13) Unknown Completed [facility] SARS-COV-2 COVID-19 PFIZER VACCINE Unknown Completed [facility] SARS-COV-2 COVID-19 PFIZER VACCINE Unknown Completed [facility] SARS-COV-2 COVID-19 PFIZER VACCINE Unknown Completed [facility] Influenza High Dose Unknown Completed [facility] Pneumococcal 13 Conjugate, PCV13 (Prevnar 13) Unknown Completed [facility] SARS-COV-2 COVID-19 PFIZER VACCINE Unknown Completed [facility] SARS-COV-2 COVID-19 PFIZER VACCINE Unknown Completed [facility] SARS-COV-2 COVID-19 PFIZER VACCINE Unknown Completed [facility] Influenza High Dose Unknown Completed [facility] Pneumococcal 13 Conjugate, PCV13 (Prevnar 13) Unknown Completed [facility] SARS-COV-2 COVID-19 PFIZER VACCINE Unknown Completed [facility] SARS-COV-2 COVID-19 PFIZER VACCINE Unknown Completed [facility] SARS-COV-2 COVID-19 PFIZER VACCINE Unknown Completed [facility] Influenza High Dose Unknown Completed [facility] Pneumococcal 13 Conjugate, PCV13 (Prevnar 13) Unknown Completed [facility] SARS-COV-2 COVID-19 PFIZER VACCINE Unknown Completed [facility] SARS-COV-2 COVID-19 PFIZER VACCINE Unknown Completed [facility] SARS-COV-2 COVID-19 PFIZER VACCINE Unknown Completed [facility] Influenza High Dose Unknown Completed [facility] Pneumococcal 13 Conjugate, PCV13 (Prevnar 13) Unknown Completed [facility] SARS-COV-2 COVID-19 PFIZER VACCINE Unknown Completed [facility] SARS-COV-2 COVID-19 PFIZER VACCINE Unknown Completed [facility] SARS-COV-2 COVID-19 PFIZER VACCINE Unknown Completed [facility] Influenza High Dose Unknown Completed [facility] Pneumococcal 13 Conjugate, PCV13 (Prevnar 13) Unknown Completed [facility] SARS-COV-2 COVID-19 PFIZER VACCINE Unknown Completed [facility] SARS-COV-2 COVID-19 PFIZER VACCINE Unknown Completed [facility] SARS-COV-2 COVID-19 PFIZER VACCINE Unknown Completed [facility] Influenza High Dose Unknown Completed [facility] Pneumococcal 13 Conjugate, PCV13 (Prevnar 13) Unknown Completed [facility] SARS-COV-2 COVID-19 PFIZER VACCINE Unknown Completed [facility] SARS-COV-2 COVID-19 PFIZER VACCINE Unknown Completed [facility] SARS-COV-2 COVID-19 PFIZER VACCINE Unknown Completed [facility] Influenza High Dose Unknown Completed [facility] Pneumococcal 13 Conjugate, PCV13 (Prevnar 13) Unknown Completed [facility] SARS-COV-2 COVID-19 PFIZER VACCINE Unknown Completed [facility] SARS-COV-2 COVID-19 PFIZER VACCINE Unknown Completed [facility] SARS-COV-2 COVID-19 PFIZER VACCINE Unknown Completed [facility] Influenza High Dose Unknown Completed [facility] Pneumococcal 13 Conjugate, PCV13 (Prevnar 13) Unknown Completed [facility] SARS-COV-2 COVID-19 PFIZER VACCINE Unknown Completed [facility] SARS-COV-2 COVID-19 PFIZER VACCINE Unknown Completed [facility] SARS-COV-2 COVID-19 PFIZER VACCINE Unknown Completed [facility] Influenza High Dose Unknown Completed [facility] Pneumococcal 13 Conjugate, PCV13 (Prevnar 13) Unknown Completed [facility] SARS-COV-2 COVID-19 PFIZER VACCINE Unknown Completed [facility] SARS-COV-2 COVID-19 PFIZER VACCINE Unknown Completed [facility] SARS-COV-2 COVID-19 PFIZER VACCINE Unknown Completed [facility] Influenza High Dose Unknown Completed [facility] Pneumococcal 13 Conjugate, PCV13 (Prevnar 13) Unknown Completed [facility] SARS-COV-2 COVID-19 PFIZER VACCINE Unknown Completed [facility] SARS-COV-2 COVID-19 PFIZER VACCINE Unknown Completed [facility] Influenza High Dose Unknown Completed [facility] Pneumococcal 13 Conjugate, PCV13 (Prevnar 13) Unknown Completed [facility] SARS-COV-2 COVID-19 PFIZER VACCINE Unknown Completed [facility] SARS-COV-2 COVID-19 PFIZER VACCINE Unknown Completed [facility] Influenza High Dose Unknown Completed [facility] Pneumococcal 13 Conjugate, PCV13 (Prevnar 13) Unknown Completed [facility] SARS-COV-2 COVID-19 PFIZER VACCINE Unknown Completed [facility] SARS-COV-2 COVID-19 PFIZER VACCINE Unknown Completed [facility] Influenza High Dose Unknown Completed [facility] Pneumococcal 13 Conjugate, PCV13 (Prevnar 13) Unknown Completed [facility] SARS-COV-2 COVID-19 PFIZER VACCINE Unknown Completed [facility] SARS-COV-2 COVID-19 PFIZER VACCINE Unknown Completed [facility] Influenza High Dose Unknown Completed [facility] Pneumococcal 13 Conjugate, PCV13 (Prevnar 13) Unknown Completed [facility] SARS-COV-2 COVID-19 PFIZER VACCINE Unknown Completed [facility] SARS-COV-2 COVID-19 PFIZER VACCINE Unknown Completed [facility] Influenza High Dose Unknown Completed [facility] Pneumococcal 13 Conjugate, PCV13 (Prevnar 13) Unknown Completed [facility] SARS-COV-2 COVID-19 PFIZER VACCINE Unknown Completed [facility] SARS-COV-2 COVID-19 PFIZER VACCINE Unknown Completed [facility] Influenza High Dose Unknown Completed [facility] Pneumococcal 13 Conjugate, PCV13 (Prevnar 13) Unknown Completed [facility] SARS-COV-2 COVID-19 PFIZER VACCINE Unknown Completed [facility] SARS-COV-2 COVID-19 PFIZER VACCINE Unknown Completed [facility] Influenza High Dose Unknown Completed [facility] Pneumococcal 13 Conjugate, PCV13 (Prevnar 13) Unknown Completed [facility] SARS-COV-2 COVID-19 PFIZER VACCINE Unknown Completed [facility] SARS-COV-2 COVID-19 PFIZER VACCINE Unknown Completed [facility] Influenza High Dose Unknown Completed [facility] Pneumococcal 13 Conjugate, PCV13 (Prevnar 13) Unknown Completed [facility] SARS-COV-2 COVID-19 PFIZER VACCINE Unknown Completed [facility] SARS-COV-2 COVID-19 PFIZER VACCINE Unknown Completed [facility] Influenza High Dose Unknown Completed [facility] Pneumococcal 13 Conjugate, PCV13 (Prevnar 13) Unknown Completed [facility] SARS-COV-2 COVID-19 PFIZER VACCINE Unknown Completed [facility] Influenza High Dose Unknown Completed [facility] Pneumococcal 13 Conjugate, PCV13 (Prevnar 13) Unknown Completed [facility] Influenza High Dose Unknown Completed [facility] Pneumococcal 13 Conjugate, PCV13 (Prevnar 13) Unknown Completed [facility] Influenza High Dose Unknown Completed [facility] [facility] Pneumococcal 13 Conjugate, PCV13 (Prevnar 13) Unknown Completed [facility] Influenza High Dose Unknown Completed [facility] Pneumococcal 13 Conjugate, PCV13 (Prevnar 13) Unknown Completed [facility] Influenza High Dose Unknown Completed [facility] Pneumococcal 13 Conjugate, PCV13 (Prevnar 13) Unknown Completed [facility] Influenza High Dose Unknown Completed [facility] Pneumococcal 13 Conjugate, PCV13 (Prevnar 13) Unknown Completed [facility] Influenza High Dose Unknown Completed [facility] Pneumococcal 13 Conjugate, PCV13 (Prevnar 13) Unknown Completed [facility] Influenza High Dose Unknown Completed [facility] Pneumococcal 13 Conjugate, PCV13 (Prevnar 13) Unknown Completed [facility] Influenza High Dose Unknown Completed [facility] Pneumococcal 13 Conjugate, PCV13 (Prevnar 13) Unknown Completed [facility] SARS-COV-2 COVID-19 PFIZER VACCINE Unknown Completed [facility] SARS-COV-2 COVID-19 PFIZER VACCINE Unknown Completed [facility] SARS-COV-2 COVID-19 PFIZER VACCINE Unknown Completed [facility] Pneumococcal 20 Conjugate, PCV20 (Prevnar 20) Unknown Completed [facility] Influenza High Dose Unknown Completed [facility] Pneumococcal 13 Conjugate, PCV13 (Prevnar 13) Unknown Completed [facility] SARS-COV-2 COVID-19 PFIZER VACCINE Unknown Completed [facility] SARS-COV-2 COVID-19 PFIZER VACCINE Unknown Completed [facility] SARS-COV-2 COVID-19 PFIZER VACCINE Unknown Completed [facility] Pneumococcal 20 Conjugate, PCV20 (Prevnar 20) Unknown Completed [facility] Influenza High Dose Unknown Completed [facility] Pneumococcal 13 Conjugate, PCV13 (Prevnar 13) Unknown Completed [facility] SARS-COV-2 COVID-19 PFIZER VACCINE Unknown Completed [facility] SARS-COV-2 COVID-19 PFIZER VACCINE Unknown Completed [facility] SARS-COV-2 COVID-19 PFIZER VACCINE Unknown Completed [facility] Pneumococcal 20 Conjugate, PCV20 (Prevnar 20) Unknown Completed [facility] Influenza High Dose Unknown Completed [facility] Pneumococcal 13 Conjugate, PCV13 (Prevnar 13) Unknown Completed [facility] SARS-COV-2 COVID-19 PFIZER VACCINE Unknown Completed [facility] SARS-COV-2 COVID-19 PFIZER VACCINE Unknown Completed [facility] SARS-COV-2 COVID-19 PFIZER VACCINE Unknown Completed [facility] Pneumococcal 20 Conjugate, PCV20 (Prevnar 20) Unknown Completed [facility] Influenza High Dose Unknown Completed [facility] Pneumococcal 13 Conjugate, PCV13 (Prevnar 13) Unknown Completed [facility] SARS-COV-2 COVID-19 PFIZER VACCINE Unknown Completed [facility] SARS-COV-2 COVID-19 PFIZER VACCINE Unknown Completed [facility] SARS-COV-2 COVID-19 PFIZER VACCINE Unknown Completed [facility] Pneumococcal 20 Conjugate, PCV20 (Prevnar 20) Unknown Completed [facility] Influenza High Dose Unknown Completed [facility] Pneumococcal 13 Conjugate, PCV13 (Prevnar 13) Unknown Completed [facility] SARS-COV-2 COVID-19 PFIZER VACCINE Unknown Completed [facility] SARS-COV-2 COVID-19 PFIZER VACCINE Unknown Completed [facility] SARS-COV-2 COVID-19 PFIZER VACCINE Unknown Completed [facility] Pneumococcal 20 Conjugate, PCV20 (Prevnar 20) Unknown Completed [facility] Influenza High Dose Unknown Completed [facility] Pneumococcal 13 Conjugate, PCV13 (Prevnar 13) Unknown Completed [facility] SARS-COV-2 COVID-19 PFIZER VACCINE Unknown Completed [facility] SARS-COV-2 COVID-19 PFIZER VACCINE Unknown Completed [facility] SARS-COV-2 COVID-19 PFIZER VACCINE Unknown Completed [facility] Pneumococcal 20 Conjugate, PCV20 (Prevnar 20) Unknown Completed [facility] Influenza High Dose Unknown Completed [facility] Pneumococcal 13 Conjugate, PCV13 (Prevnar 13) Unknown Completed [facility] SARS-COV-2 COVID-19 PFIZER VACCINE Unknown Completed [facility] SARS-COV-2 COVID-19 PFIZER VACCINE Unknown Completed [facility] SARS-COV-2 COVID-19 PFIZER VACCINE Unknown Completed [facility] Pneumococcal 20 Conjugate, PCV20 (Prevnar 20) Unknown Completed [facility] Influenza High Dose Unknown Completed [facility] Pneumococcal 13 Conjugate, PCV13 (Prevnar 13) Unknown Completed [facility] SARS-COV-2 COVID-19 PFIZER VACCINE Unknown Completed [facility] SARS-COV-2 COVID-19 PFIZER VACCINE Unknown Completed [facility] SARS-COV-2 COVID-19 PFIZER VACCINE Unknown Completed [facility] Pneumococcal 20 Conjugate, PCV20 (Prevnar 20) Unknown Completed [facility] Influenza High Dose Unknown Completed [facility] Pneumococcal 13 Conjugate, PCV13 (Prevnar 13) Unknown Completed [facility] SARS-COV-2 COVID-19 PFIZER VACCINE Unknown Completed [facility] SARS-COV-2 COVID-19 PFIZER VACCINE Unknown Completed [facility] SARS-COV-2 COVID-19 PFIZER VACCINE Unknown Completed [facility] Pneumococcal 20 Conjugate, PCV20 (Prevnar 20) Unknown Completed [facility] Influenza High Dose Unknown Completed [facility] Pneumococcal 13 Conjugate, PCV13 (Prevnar 13) Unknown Completed [facility] SARS-COV-2 COVID-19 PFIZER VACCINE Unknown Completed [facility] SARS-COV-2 COVID-19 PFIZER VACCINE Unknown Completed [facility] SARS-COV-2 COVID-19 PFIZER VACCINE Unknown Completed [facility] Pneumococcal 20 Conjugate, PCV20 (Prevnar 20) Unknown Completed [facility] Influenza High Dose Unknown Completed [facility] Pneumococcal 13 Conjugate, PCV13 (Prevnar 13) Unknown Completed [facility] SARS-COV-2 COVID-19 PFIZER VACCINE Unknown Completed [facility] SARS-COV-2 COVID-19 PFIZER VACCINE Unknown Completed [facility] SARS-COV-2 COVID-19 PFIZER VACCINE Unknown Completed [facility] Pneumococcal 20 Conjugate, PCV20 (Prevnar 20) Unknown Completed [facility] Influenza High Dose Unknown Completed [facility] Pneumococcal 13 Conjugate, PCV13 (Prevnar 13) Unknown Completed [facility] SARS-COV-2 COVID-19 PFIZER VACCINE Unknown Completed [facility] SARS-COV-2 COVID-19 PFIZER VACCINE Unknown Completed [facility] SARS-COV-2 COVID-19 PFIZER VACCINE Unknown Completed [facility] Pneumococcal 20 Conjugate, PCV20 (Prevnar 20) Unknown Completed [facility] Influenza High Dose Unknown Completed [facility] Pneumococcal 13 Conjugate, PCV13 (Prevnar 13) Unknown Completed [facility] SARS-COV-2 COVID-19 PFIZER VACCINE Unknown Completed [facility] SARS-COV-2 COVID-19 PFIZER VACCINE Unknown Completed [facility] SARS-COV-2 COVID-19 PFIZER VACCINE Unknown Completed [facility] Pneumococcal 20 Conjugate, PCV20 (Prevnar 20) Unknown Completed [facility] Influenza High Dose Unknown Completed [facility] Pneumococcal 13 Conjugate, PCV13 (Prevnar 13) Unknown Completed [facility] SARS-COV-2 COVID-19 PFIZER VACCINE Unknown Completed [facility] SARS-COV-2 COVID-19 PFIZER VACCINE Unknown Completed [facility] SARS-COV-2 COVID-19 PFIZER VACCINE Unknown Completed [facility] Pneumococcal 20 Conjugate, PCV20 (Prevnar 20) Unknown Completed [facility] Influenza High Dose Unknown Completed [facility] Pneumococcal 13 Conjugate, PCV13 (Prevnar 13) Unknown Completed [facility] SARS-COV-2 COVID-19 PFIZER VACCINE Unknown Completed [facility] SARS-COV-2 COVID-19 PFIZER VACCINE Unknown Completed [facility] SARS-COV-2 COVID-19 PFIZER VACCINE Unknown Completed [facility] Pneumococcal 20 Conjugate, PCV20 (Prevnar 20) Unknown Completed [facility] Influenza High Dose Unknown Completed [facility] Pneumococcal 13 Conjugate, PCV13 (Prevnar 13) Unknown Completed [facility] SARS-COV-2 COVID-19 PFIZER VACCINE Unknown Completed [facility] SARS-COV-2 COVID-19 PFIZER VACCINE Unknown Completed [facility] SARS-COV-2 COVID-19 PFIZER VACCINE Unknown Completed [facility] Pneumococcal 20 Conjugate, PCV20 (Prevnar 20) Unknown Completed [facility] Influenza High Dose Unknown Completed [facility] Pneumococcal 13 Conjugate, PCV13 (Prevnar 13) Unknown Completed [facility] SARS-COV-2 COVID-19 PFIZER VACCINE Unknown Completed [facility] SARS-COV-2 COVID-19 PFIZER VACCINE Unknown Completed [facility] SARS-COV-2 COVID-19 PFIZER VACCINE Unknown Completed [facility] Pneumococcal 20 Conjugate, PCV20 (Prevnar 20) Unknown Completed [facility] Influenza High Dose Unknown Completed [facility] Pneumococcal 13 Conjugate, PCV13 (Prevnar 13) Unknown Completed [facility] SARS-COV-2 COVID-19 PFIZER VACCINE Unknown Completed [facility] SARS-COV-2 COVID-19 PFIZER VACCINE Unknown Completed [facility] SARS-COV-2 COVID-19 PFIZER VACCINE Unknown Completed [facility] Pneumococcal 20 Conjugate, PCV20 (Prevnar 20) Unknown Completed [facility] Influenza High Dose Unknown Completed [facility] Pneumococcal 13 Conjugate, PCV13 (Prevnar 13) Unknown Completed [facility] SARS-COV-2 COVID-19 PFIZER VACCINE Unknown Completed [facility] SARS-COV-2 COVID-19 PFIZER VACCINE Unknown Completed [facility] SARS-COV-2 COVID-19 PFIZER VACCINE Unknown Completed [facility] Pneumococcal 20 Conjugate, PCV20 (Prevnar 20) Unknown Completed [facility] Influenza High Dose Unknown Completed [facility] Pneumococcal 13 Conjugate, PCV13 (Prevnar 13) Unknown Completed [facility] SARS-COV-2 COVID-19 PFIZER VACCINE Unknown Completed [facility] SARS-COV-2 COVID-19 PFIZER VACCINE Unknown Completed [facility] SARS-COV-2 COVID-19 PFIZER VACCINE Unknown Completed [facility] Pneumococcal 20 Conjugate, PCV20 (Prevnar 20) Unknown Completed [facility] Influenza High Dose Unknown Completed [facility] Pneumococcal 13 Conjugate, PCV13 (Prevnar 13) Unknown Completed [facility] SARS-COV-2 COVID-19 PFIZER VACCINE Unknown Completed [facility] SARS-COV-2 COVID-19 PFIZER VACCINE Unknown Completed [facility] SARS-COV-2 COVID-19 PFIZER VACCINE Unknown Completed [facility] Pneumococcal 20 Conjugate, PCV20 (Prevnar 20) Unknown Completed [facility] Influenza High Dose Unknown Completed [facility] Pneumococcal 13 Conjugate, PCV13 (Prevnar 13) Unknown Completed [facility] SARS-COV-2 COVID-19 PFIZER VACCINE Unknown Completed [facility] SARS-COV-2 COVID-19 PFIZER VACCINE Unknown Completed [facility] SARS-COV-2 COVID-19 PFIZER VACCINE Unknown Completed [facility] Pneumococcal 20 Conjugate, PCV20 (Prevnar 20) Unknown Completed [facility] Influenza High Dose Unknown Completed [facility] Pneumococcal 13 Conjugate, PCV13 (Prevnar 13) Unknown Completed [facility] SARS-COV-2 COVID-19 PFIZER VACCINE Unknown Completed [facility] SARS-COV-2 COVID-19 PFIZER VACCINE Unknown Completed [facility] SARS-COV-2 COVID-19 PFIZER VACCINE Unknown Completed [facility] Pneumococcal 20 Conjugate, PCV20 (Prevnar 20) Unknown Completed [facility] Influenza High Dose Unknown Completed [facility] Pneumococcal 13 Conjugate, PCV13 (Prevnar 13) Unknown Completed [facility] SARS-COV-2 COVID-19 PFIZER VACCINE Unknown Completed [facility] SARS-COV-2 COVID-19 PFIZER VACCINE Unknown Completed [facility] SARS-COV-2 COVID-19 PFIZER VACCINE Unknown Completed [facility] Pneumococcal 20 Conjugate, PCV20 (Prevnar 20) Unknown Completed [facility] Influenza High Dose Unknown Completed [facility] Pneumococcal 13 Conjugate, PCV13 (Prevnar 13) Unknown Completed [facility] SARS-COV-2 COVID-19 PFIZER VACCINE Unknown Completed [facility] SARS-COV-2 COVID-19 PFIZER VACCINE Unknown Completed [facility] SARS-COV-2 COVID-19 PFIZER VACCINE Unknown Completed [facility] Pneumococcal 20 Conjugate, PCV20 (Prevnar 20) Unknown Completed [facility] Influenza Virus Vaccine,quad Im,preserve Free 65+ (FLUAD) Unknown Completed [facility] Influenza High Dose Unknown Completed [facility] Pneumococcal 13 Conjugate, PCV13 (Prevnar 13) Unknown Completed [facility] SARS-COV-2 COVID-19 PFIZER VACCINE Unknown Completed [facility] SARS-COV-2 COVID-19 PFIZER VACCINE Unknown Completed [facility] SARS-COV-2 COVID-19 PFIZER VACCINE Unknown Completed [facility] Pneumococcal 20 Conjugate, PCV20 (Prevnar 20) Unknown Completed [facility] Influenza Virus Vaccine,quad Im,preserve Free 65+ (FLUAD) Unknown Completed [facility] Influenza High Dose Unknown Completed [facility] Pneumococcal 13 Conjugate, PCV13 (Prevnar 13) Unknown Completed [facility] SARS-COV-2 COVID-19 PFIZER VACCINE Unknown Completed [facility] SARS-COV-2 COVID-19 PFIZER VACCINE Unknown Completed [facility] SARS-COV-2 COVID-19 PFIZER VACCINE Unknown Completed [facility] Pneumococcal 20 Conjugate, PCV20 (Prevnar 20) Unknown Completed [facility] Influenza Virus Vaccine,quad Im,preserve Free 65+ (FLUAD) Unknown Completed [facility] Influenza High Dose Unknown Completed [facility] Pneumococcal 13 Conjugate, PCV13 (Prevnar 13) Unknown Completed [facility] SARS-COV-2 COVID-19 PFIZER VACCINE Unknown Completed [facility] SARS-COV-2 COVID-19 PFIZER VACCINE Unknown Completed [facility] SARS-COV-2 COVID-19 PFIZER VACCINE Unknown Completed [facility] Pneumococcal 20 Conjugate, PCV20 (Prevnar 20) Unknown Completed [facility] Influenza Virus Vaccine,quad Im,preserve Free 65+ (FLUAD) Unknown Completed [facility] Influenza High Dose Unknown Completed [facility] Pneumococcal 13 Conjugate, PCV13 (Prevnar 13) Unknown Completed [facility] SARS-COV-2 COVID-19 PFIZER VACCINE Unknown Completed [facility] SARS-COV-2 COVID-19 PFIZER VACCINE Unknown Completed [facility] SARS-COV-2 COVID-19 PFIZER VACCINE Unknown Completed [facility] Pneumococcal 20 Conjugate, PCV20 (Prevnar 20) Unknown Completed [facility] Influenza Virus Vaccine,quad Im,preserve Free 65+ (FLUAD) Unknown Completed [facility] Influenza High Dose Unknown Completed [facility] Pneumococcal 13 Conjugate, PCV13 (Prevnar 13) Unknown Completed [facility] SARS-COV-2 COVID-19 PFIZER VACCINE Unknown Completed [facility] SARS-COV-2 COVID-19 PFIZER VACCINE Unknown Completed [facility] SARS-COV-2 COVID-19 PFIZER VACCINE Unknown Completed [facility] Pneumococcal 20 Conjugate, PCV20 (Prevnar 20) Unknown Completed [facility] Influenza Virus Vaccine,quad Im,preserve Free 65+ (FLUAD) Unknown Completed [facility] Influenza High Dose Unknown Completed [facility] Pneumococcal 13 Conjugate, PCV13 (Prevnar 13) Unknown Completed [facility] SARS-COV-2 COVID-19 PFIZER VACCINE Unknown Completed [facility] SARS-COV-2 COVID-19 PFIZER VACCINE Unknown Completed [facility] SARS-COV-2 COVID-19 PFIZER VACCINE Unknown Completed [facility] Pneumococcal 20 Conjugate, PCV20 (Prevnar 20) Unknown Completed [facility] Influenza Virus Vaccine,quad Im,preserve Free 65+ (FLUAD) Unknown Completed [facility] Influenza High Dose Unknown Completed [facility] Pneumococcal 13 Conjugate, PCV13 (Prevnar 13) Unknown Completed [facility] SARS-COV-2 COVID-19 PFIZER VACCINE Unknown Completed [facility] SARS-COV-2 COVID-19 PFIZER VACCINE Unknown Completed [facility] SARS-COV-2 COVID-19 PFIZER VACCINE Unknown Completed [facility] Pneumococcal 20 Conjugate, PCV20 (Prevnar 20) Unknown Completed [facility] Influenza Virus Vaccine,quad Im,preserve Free 65+ (FLUAD) Unknown Completed [facility] Influenza High Dose Unknown Completed [facility] Pneumococcal 13 Conjugate, PCV13 (Prevnar 13) Unknown Completed [facility] SARS-COV-2 COVID-19 PFIZER VACCINE Unknown Completed [facility] SARS-COV-2 COVID-19 PFIZER VACCINE Unknown Completed [facility] SARS-COV-2 COVID-19 PFIZER VACCINE Unknown Completed [facility] Pneumococcal 20 Conjugate, PCV20 (Prevnar 20) Unknown Completed [facility] Influenza Virus Vaccine,quad Im,preserve Free 65+ (FLUAD) Unknown Completed [facility] Influenza High Dose Unknown Completed [facility] Pneumococcal 13 Conjugate, PCV13 (Prevnar 13) Unknown Completed [facility] SARS-COV-2 COVID-19 PFIZER VACCINE Unknown Completed [facility] SARS-COV-2 COVID-19 PFIZER VACCINE Unknown Completed [facility] SARS-COV-2 COVID-19 PFIZER VACCINE Unknown Completed [facility] Pneumococcal 20 Conjugate, PCV20 (Prevnar 20) Unknown Completed [facility] Influenza Virus Vaccine,quad Im,preserve Free 65+ (FLUAD) Unknown Completed [facility] Influenza High Dose Unknown Completed [facility] Pneumococcal 13 Conjugate, PCV13 (Prevnar 13) Unknown Completed [facility] SARS-COV-2 COVID-19 PFIZER VACCINE Unknown Completed [facility] SARS-COV-2 COVID-19 PFIZER VACCINE Unknown Completed [facility] SARS-COV-2 COVID-19 PFIZER VACCINE Unknown Completed [facility] Pneumococcal 20 Conjugate, PCV20 (Prevnar 20) Unknown Completed [facility] Influenza Virus Vaccine,quad Im,preserve Free 65+ (FLUAD) Unknown Completed [facility] Influenza High Dose Unknown Completed [facility] Pneumococcal 13 Conjugate, PCV13 (Prevnar 13) Unknown Completed [facility] SARS-COV-2 COVID-19 PFIZER VACCINE Unknown Completed [facility] SARS-COV-2 COVID-19 PFIZER VACCINE Unknown Completed [facility] SARS-COV-2 COVID-19 PFIZER VACCINE Unknown Completed [facility] Pneumococcal 20 Conjugate, PCV20 (Prevnar 20) Unknown Completed [facility] Influenza Virus Vaccine,quad Im,preserve Free 65+ (FLUAD) Unknown Completed [facility] Influenza High Dose Unknown Completed [facility] Pneumococcal 13 Conjugate, PCV13 (Prevnar 13) Unknown Completed [facility] SARS-COV-2 COVID-19 PFIZER VACCINE Unknown Completed [facility] SARS-COV-2 COVID-19 PFIZER VACCINE Unknown Completed [facility] SARS-COV-2 COVID-19 PFIZER VACCINE Unknown Completed [facility] Pneumococcal 20 Conjugate, PCV20 (Prevnar 20) Unknown Completed [facility] Influenza Virus Vaccine,quad Im,preserve Free 65+ (FLUAD) Unknown Completed [facility] Influenza High Dose Unknown Completed [facility] Pneumococcal 13 Conjugate, PCV13 (Prevnar 13) Unknown Completed [facility] SARS-COV-2 COVID-19 PFIZER VACCINE Unknown Completed [facility] SARS-COV-2 COVID-19 PFIZER VACCINE Unknown Completed [facility] SARS-COV-2 COVID-19 PFIZER VACCINE Unknown Completed [facility] Pneumococcal 20 Conjugate, PCV20 (Prevnar 20) Unknown Completed [facility] Influenza Virus Vaccine,quad Im,preserve Free 65+ (FLUAD) Unknown Completed [facility] Influenza High Dose Unknown Completed [facility] Pneumococcal 13 Conjugate, PCV13 (Prevnar 13) Unknown Completed [facility] SARS-COV-2 COVID-19 PFIZER VACCINE Unknown Completed [facility] SARS-COV-2 COVID-19 PFIZER VACCINE Unknown Completed [facility] SARS-COV-2 COVID-19 PFIZER VACCINE Unknown Completed [facility] Pneumococcal 20 Conjugate, PCV20 (Prevnar 20) Unknown Completed [facility] Influenza Virus Vaccine,quad Im,preserve Free 65+ (FLUAD) Unknown Completed [facility] Influenza High Dose Unknown Completed [facility] Pneumococcal 13 Conjugate, PCV13 (Prevnar 13) Unknown Completed [facility] SARS-COV-2 COVID-19 PFIZER VACCINE Unknown Completed [facility] SARS-COV-2 COVID-19 PFIZER VACCINE Unknown Completed [facility] SARS-COV-2 COVID-19 PFIZER VACCINE Unknown Completed [facility] Pneumococcal 20 Conjugate, PCV20 (Prevnar 20) Unknown Completed [facility] Influenza Virus Vaccine,quad Im,preserve Free 65+ (FLUAD) Unknown Completed [facility] Influenza High Dose Unknown Completed [facility] Pneumococcal 13 Conjugate, PCV13 (Prevnar 13) Unknown Completed [facility] SARS-COV-2 COVID-19 PFIZER VACCINE Unknown Completed [facility] SARS-COV-2 COVID-19 PFIZER VACCINE Unknown Completed [facility] SARS-COV-2 COVID-19 PFIZER VACCINE Unknown Completed [facility] Pneumococcal 20 Conjugate, PCV20 (Prevnar 20) Unknown Completed [facility] Influenza Virus Vaccine,quad Im,preserve Free 65+ (FLUAD) Unknown Completed [facility] Influenza High Dose Unknown Completed [facility] Pneumococcal 13 Conjugate, PCV13 (Prevnar 13) Unknown Completed [facility] SARS-COV-2 COVID-19 PFIZER VACCINE Unknown Completed [facility] SARS-COV-2 COVID-19 PFIZER VACCINE Unknown Completed [facility] SARS-COV-2 COVID-19 PFIZER VACCINE Unknown Completed [facility] Pneumococcal 20 Conjugate, PCV20 (Prevnar 20) Unknown Completed [facility] Influenza Virus Vaccine,quad Im,preserve Free 65+ (FLUAD) Unknown Completed [facility] Influenza High Dose Unknown Completed [facility] Pneumococcal 13 Conjugate, PCV13 (Prevnar 13) Unknown Completed [facility] SARS-COV-2 COVID-19 PFIZER VACCINE Unknown Completed [facility] SARS-COV-2 COVID-19 PFIZER VACCINE Unknown Completed [facility] SARS-COV-2 COVID-19 PFIZER VACCINE Unknown Completed [facility] Pneumococcal 20 Conjugate, PCV20 (Prevnar 20) Unknown Completed [facility] Influenza Virus Vaccine,quad Im,preserve Free 65+ (FLUAD) Unknown Completed [facility] Influenza High Dose Unknown Completed [facility] Pneumococcal 13 Conjugate, PCV13 (Prevnar 13) Unknown Completed [facility] SARS-COV-2 COVID-19 PFIZER VACCINE Unknown Completed [facility] SARS-COV-2 COVID-19 PFIZER VACCINE Unknown Completed [facility] SARS-COV-2 COVID-19 PFIZER VACCINE Unknown Completed [facility] Pneumococcal 20 Conjugate, PCV20 (Prevnar 20) Unknown Completed [facility] Influenza Virus Vaccine,quad Im,preserve Free 65+ (FLUAD) Unknown Completed [facility] Influenza High Dose Unknown Completed [facility] Pneumococcal 13 Conjugate, PCV13 (Prevnar 13) Unknown Completed [facility] SARS-COV-2 COVID-19 PFIZER VACCINE Unknown Completed [facility] SARS-COV-2 COVID-19 PFIZER VACCINE Unknown Completed [facility] SARS-COV-2 COVID-19 PFIZER VACCINE Unknown Completed [facility] Pneumococcal 20 Conjugate, PCV20 (Prevnar 20) Unknown Completed [facility] Influenza Virus Vaccine,quad Im,preserve Free 65+ (FLUAD) Unknown Completed [facility] Influenza High Dose Unknown Completed [facility] Pneumococcal 13 Conjugate, PCV13 (Prevnar 13) Unknown Completed [facility] SARS-COV-2 COVID-19 PFIZER VACCINE Unknown Completed [facility] SARS-COV-2 COVID-19 PFIZER VACCINE Unknown Completed [facility] SARS-COV-2 COVID-19 PFIZER VACCINE Unknown Completed [facility] Pneumococcal 20 Conjugate, PCV20 (Prevnar 20) Unknown Completed [facility] Influenza Virus Vaccine,quad Im,preserve Free 65+ (FLUAD) Unknown Completed [facility] Influenza High Dose Unknown Completed [facility] Pneumococcal 13 Conjugate, PCV13 (Prevnar 13) Unknown Completed [facility] SARS-COV-2 COVID-19 PFIZER VACCINE Unknown Completed [facility] SARS-COV-2 COVID-19 PFIZER VACCINE Unknown Completed [facility] SARS-COV-2 COVID-19 PFIZER VACCINE Unknown Completed [facility] Pneumococcal 20 Conjugate, PCV20 (Prevnar 20) Unknown Completed [facility] Influenza Virus Vaccine,quad Im,preserve Free 65+ (FLUAD) Unknown Completed [facility] Influenza High Dose Unknown Completed [facility] Pneumococcal 13 Conjugate, PCV13 (Prevnar 13) Unknown Completed [facility] SARS-COV-2 COVID-19 PFIZER VACCINE Unknown Completed [facility] SARS-COV-2 COVID-19 PFIZER VACCINE Unknown Completed [facility] SARS-COV-2 COVID-19 PFIZER VACCINE Unknown Completed [facility] Pneumococcal 20 Conjugate, PCV20 (Prevnar 20) Unknown Completed [facility] Influenza Virus Vaccine,quad Im,preserve Free 65+ (FLUAD) Unknown Completed [facility] Influenza High Dose Unknown Completed [facility] Pneumococcal 13 Conjugate, PCV13 (Prevnar 13) Unknown Completed [facility] SARS-COV-2 COVID-19 PFIZER VACCINE Unknown Completed [facility] SARS-COV-2 COVID-19 PFIZER VACCINE Unknown Completed [facility] SARS-COV-2 COVID-19 PFIZER VACCINE Unknown Completed [facility] Pneumococcal 20 Conjugate, PCV20 (Prevnar 20) Unknown Completed [facility] Influenza Virus Vaccine,quad Im,preserve Free 65+ (FLUAD) Unknown Completed [facility] Influenza High Dose Unknown Completed [facility] Pneumococcal 13 Conjugate, PCV13 (Prevnar 13) Unknown Completed [facility] SARS-COV-2 COVID-19 PFIZER VACCINE Unknown Completed [facility] SARS-COV-2 COVID-19 PFIZER VACCINE Unknown Completed [facility] SARS-COV-2 COVID-19 PFIZER VACCINE Unknown Completed [facility] Pneumococcal 20 Conjugate, PCV20 (Prevnar 20) Unknown Completed [facility] Influenza Virus Vaccine,quad Im,preserve Free 65+ (FLUAD) Unknown Completed [facility] Influenza High Dose Unknown Completed [facility] Pneumococcal 13 Conjugate, PCV13 (Prevnar 13) Unknown Completed [facility] SARS-COV-2 COVID-19 PFIZER VACCINE Unknown Completed [facility] SARS-COV-2 COVID-19 PFIZER VACCINE Unknown Completed [facility] SARS-COV-2 COVID-19 PFIZER VACCINE Unknown Completed [facility] Pneumococcal 20 Conjugate, PCV20 (Prevnar 20) Unknown Completed [facility] Influenza Virus Vaccine,quad Im,preserve Free 65+ (FLUAD) Unknown Completed [facility] Influenza High Dose Unknown Completed [facility] Pneumococcal 13 Conjugate, PCV13 (Prevnar 13) Unknown Completed [facility] SARS-COV-2 COVID-19 PFIZER VACCINE Unknown Completed [facility] SARS-COV-2 COVID-19 PFIZER VACCINE Unknown Completed [facility] SARS-COV-2 COVID-19 PFIZER VACCINE Unknown Completed [facility] Pneumococcal 20 Conjugate, PCV20 (Prevnar 20) Unknown Completed [facility] Influenza Virus Vaccine,quad Im,preserve Free 65+ (FLUAD) Unknown Completed [facility] Influenza High Dose Unknown Completed [facility] Pneumococcal 13 Conjugate, PCV13 (Prevnar 13) Unknown Completed [facility] SARS-COV-2 COVID-19 PFIZER VACCINE Unknown Completed [facility] SARS-COV-2 COVID-19 PFIZER VACCINE Unknown Completed [facility] SARS-COV-2 COVID-19 PFIZER VACCINE Unknown Completed [facility] Pneumococcal 20 Conjugate, PCV20 (Prevnar 20) Unknown Completed [facility] Influenza Virus Vaccine,quad Im,preserve Free 65+ (FLUAD) Unknown Completed [facility] Influenza High Dose Unknown Completed [facility] Pneumococcal 13 Conjugate, PCV13 (Prevnar 13) Unknown Completed [facility] SARS-COV-2 COVID-19 PFIZER VACCINE Unknown Completed [facility] SARS-COV-2 COVID-19 PFIZER VACCINE Unknown Completed [facility] SARS-COV-2 COVID-19 PFIZER VACCINE Unknown Completed [facility] Pneumococcal 20 Conjugate, PCV20 (Prevnar 20) Unknown Completed [facility] Influenza Virus Vaccine,quad Im,preserve Free 65+ (FLUAD) Unknown Completed [facility] Influenza High Dose Unknown Completed [facility] Pneumococcal 13 Conjugate, PCV13 (Prevnar 13) Unknown Completed [facility] SARS-COV-2 COVID-19 PFIZER VACCINE Unknown Completed [facility] SARS-COV-2 COVID-19 PFIZER VACCINE Unknown Completed [facility] SARS-COV-2 COVID-19 PFIZER VACCINE Unknown Completed [facility] Pneumococcal 20 Conjugate, PCV20 (Prevnar 20) Unknown Completed [facility] Influenza High Dose Unknown Completed [facility] Pneumococcal 13 Conjugate, PCV13 (Prevnar 13) Unknown Completed [facility] SARS-COV-2 COVID-19 PFIZER VACCINE Unknown Completed [facility] SARS-COV-2 COVID-19 PFIZER VACCINE Unknown Completed [facility] SARS-COV-2 COVID-19 PFIZER VACCINE Unknown Completed [facility] Pneumococcal 20 Conjugate, PCV20 (Prevnar 20) Unknown Completed [facility] Influenza Virus Vaccine,quad Im,preserve Free 65+ (FLUAD) Unknown Completed [facility] Influenza High Dose Unknown Completed [facility] Pneumococcal 13 Conjugate, PCV13 (Prevnar 13) Unknown Completed [facility] SARS-COV-2 COVID-19 PFIZER VACCINE Unknown Completed [facility] SARS-COV-2 COVID-19 PFIZER VACCINE Unknown Completed [facility] SARS-COV-2 COVID-19 PFIZER VACCINE Unknown Completed [facility] Pneumococcal 20 Conjugate, PCV20 (Prevnar 20) Unknown Completed [facility] Influenza Virus Vaccine,quad Im,preserve Free 65+ (FLUAD) Unknown Completed [facility] Influenza High Dose Unknown Completed [facility] Pneumococcal 13 Conjugate, PCV13 (Prevnar 13) Unknown Completed [facility] SARS-COV-2 COVID-19 PFIZER VACCINE Unknown Completed [facility] SARS-COV-2 COVID-19 PFIZER VACCINE Unknown Completed [facility] SARS-COV-2 COVID-19 PFIZER VACCINE Unknown Completed [facility] Pneumococcal 20 Conjugate, PCV20 (Prevnar 20) Unknown Completed [facility] Influenza Virus Vaccine,quad Im,preserve Free 65+ (FLUAD) Unknown Completed [facility] Influenza High Dose Unknown Completed [facility] Pneumococcal 13 Conjugate, PCV13 (Prevnar 13) Unknown Completed [facility] SARS-COV-2 COVID-19 PFIZER VACCINE Unknown Completed [facility] SARS-COV-2 COVID-19 PFIZER VACCINE Unknown Completed [facility] SARS-COV-2 COVID-19 PFIZER VACCINE Unknown Completed [facility] Pneumococcal 20 Conjugate, PCV20 (Prevnar 20) Unknown Completed [facility] Influenza Virus Vaccine,quad Im,preserve Free 65+ (FLUAD) Unknown Completed [facility] Influenza High Dose Unknown Completed [facility] Pneumococcal 13 Conjugate, PCV13 (Prevnar 13) Unknown Completed [facility] SARS-COV-2 COVID-19 PFIZER VACCINE Unknown Completed [facility] SARS-COV-2 COVID-19 PFIZER VACCINE Unknown Completed [facility] SARS-COV-2 COVID-19 PFIZER VACCINE Unknown Completed [facility] Pneumococcal 20 Conjugate, PCV20 (Prevnar 20) Unknown Completed [facility] Influenza Virus Vaccine,quad Im,preserve Free 65+ (FLUAD) Unknown Completed [facility] Influenza High Dose Unknown Completed [facility] Pneumococcal 13 Conjugate, PCV13 (Prevnar 13) Unknown Completed [facility] SARS-COV-2 COVID-19 PFIZER VACCINE Unknown Completed [facility] SARS-COV-2 COVID-19 PFIZER VACCINE Unknown Completed [facility] SARS-COV-2 COVID-19 PFIZER VACCINE Unknown Completed [facility] Pneumococcal 20 Conjugate, PCV20 (Prevnar 20) Unknown Completed [facility] Influenza Virus Vaccine,quad Im,preserve Free 65+ (FLUAD) Unknown Completed [facility] Influenza High Dose Unknown Completed [facility] Pneumococcal 13 Conjugate, PCV13 (Prevnar 13) Unknown Completed [facility] SARS-COV-2 COVID-19 PFIZER VACCINE Unknown Completed [facility] SARS-COV-2 COVID-19 PFIZER VACCINE Unknown Completed [facility] SARS-COV-2 COVID-19 PFIZER VACCINE Unknown Completed [facility] Pneumococcal 20 Conjugate, PCV20 (Prevnar 20) Unknown Completed [facility] Influenza Virus Vaccine,quad Im,preserve Free 65+ (FLUAD) Unknown Completed [facility] Influenza High Dose Unknown Completed [facility] Pneumococcal 13 Conjugate, PCV13 (Prevnar 13) Unknown Completed [facility] SARS-COV-2 COVID-19 PFIZER VACCINE Unknown Completed [facility] SARS-COV-2 COVID-19 PFIZER VACCINE Unknown Completed [facility] SARS-COV-2 COVID-19 PFIZER VACCINE Unknown Completed [facility] Pneumococcal 20 Conjugate, PCV20 (Prevnar 20) Unknown Completed [facility] Influenza Virus Vaccine,quad Im,preserve Free 65+ (FLUAD) Unknown Completed [facility] Influenza High Dose Unknown Completed [facility] Pneumococcal 13 Conjugate, PCV13 (Prevnar 13) Unknown Completed [facility] SARS-COV-2 COVID-19 PFIZER VACCINE Unknown Completed [facility] SARS-COV-2 COVID-19 PFIZER VACCINE Unknown Completed [facility] SARS-COV-2 COVID-19 PFIZER VACCINE Unknown Completed [facility] Pneumococcal 20 Conjugate, PCV20 (Prevnar 20) Unknown Completed [facility] Influenza Virus Vaccine,quad Im,preserve Free 65+ (FLUAD) Unknown Completed [facility] Influenza High Dose Unknown Completed [facility] Pneumococcal 13 Conjugate, PCV13 (Prevnar 13) Unknown Completed [facility] SARS-COV-2 COVID-19 PFIZER VACCINE Unknown Completed [facility] SARS-COV-2 COVID-19 PFIZER VACCINE Unknown Completed [facility] SARS-COV-2 COVID-19 PFIZER VACCINE Unknown Completed [facility] Pneumococcal 20 Conjugate, PCV20 (Prevnar 20) Unknown Completed [facility] Influenza Virus Vaccine,quad Im,preserve Free 65+ (FLUAD) Unknown Completed [facility] Influenza High Dose Unknown Completed [facility] Pneumococcal 13 Conjugate, PCV13 (Prevnar 13) Unknown Completed [facility] SARS-COV-2 COVID-19 PFIZER VACCINE Unknown Completed [facility] SARS-COV-2 COVID-19 PFIZER VACCINE Unknown Completed [facility] SARS-COV-2 COVID-19 PFIZER VACCINE Unknown Completed [facility] Pneumococcal 20 Conjugate, PCV20 (Prevnar 20) Unknown Completed [facility] Influenza Virus Vaccine,quad Im,preserve Free 65+ (FLUAD) Unknown Completed [facility] Influenza High Dose Unknown Completed [facility] Pneumococcal 13 Conjugate, PCV13 (Prevnar 13) Unknown Completed [facility] SARS-COV-2 COVID-19 PFIZER VACCINE Unknown Completed [facility] SARS-COV-2 COVID-19 PFIZER VACCINE Unknown Completed [facility] SARS-COV-2 COVID-19 PFIZER VACCINE Unknown Completed [facility] Pneumococcal 20 Conjugate, PCV20 (Prevnar 20) Unknown Completed [facility] Influenza Virus Vaccine,quad Im,preserve Free 65+ (FLUAD) Unknown Completed [facility] Influenza High Dose Unknown Completed [facility] Pneumococcal 13 Conjugate, PCV13 (Prevnar 13) Unknown Completed [facility] SARS-COV-2 COVID-19 PFIZER VACCINE Unknown Completed [facility] SARS-COV-2 COVID-19 PFIZER VACCINE Unknown Completed [facility] SARS-COV-2 COVID-19 PFIZER VACCINE Unknown Completed [facility] Pneumococcal 20 Conjugate, PCV20 (Prevnar 20) Unknown Completed [facility] Influenza Virus Vaccine,quad Im,preserve Free 65+ (FLUAD) Unknown Completed [facility] Influenza High Dose Unknown Completed [facility] Pneumococcal 13 Conjugate, PCV13 (Prevnar 13) Unknown Completed [facility] SARS-COV-2 COVID-19 PFIZER VACCINE Unknown Completed [facility] SARS-COV-2 COVID-19 PFIZER VACCINE Unknown Completed [facility] SARS-COV-2 COVID-19 PFIZER VACCINE Unknown Completed [facility] Pneumococcal 20 Conjugate, PCV20 (Prevnar 20) Unknown Completed [facility] Influenza Virus Vaccine,quad Im,preserve Free 65+ (FLUAD) Unknown Completed [facility] Influenza High Dose Unknown Completed [facility] Pneumococcal 13 Conjugate, PCV13 (Prevnar 13) Unknown Completed [facility] SARS-COV-2 COVID-19 PFIZER VACCINE Unknown Completed [facility] SARS-COV-2 COVID-19 PFIZER VACCINE Unknown Completed [facility] SARS-COV-2 COVID-19 PFIZER VACCINE Unknown Completed [facility] Pneumococcal 20 Conjugate, PCV20 (Prevnar 20) Unknown Completed [facility] Influenza Virus Vaccine,quad Im,preserve Free 65+ (FLUAD) Unknown Completed [facility] Influenza High Dose Unknown Completed [facility] Pneumococcal 13 Conjugate, PCV13 (Prevnar 13) Unknown Completed [facility] SARS-COV-2 COVID-19 PFIZER VACCINE Unknown Completed [facility] SARS-COV-2 COVID-19 PFIZER VACCINE Unknown Completed [facility] SARS-COV-2 COVID-19 PFIZER VACCINE Unknown Completed [facility] Pneumococcal 20 Conjugate, PCV20 (Prevnar 20) Unknown Completed [facility] Influenza Virus Vaccine,quad Im,preserve Free 65+ (FLUAD) Unknown Completed [facility] Influenza High Dose Unknown Completed [facility] Pneumococcal 13 Conjugate, PCV13 (Prevnar 13) Unknown Completed [facility] SARS-COV-2 COVID-19 PFIZER VACCINE Unknown Completed [facility] SARS-COV-2 COVID-19 PFIZER VACCINE Unknown Completed [facility] SARS-COV-2 COVID-19 PFIZER VACCINE Unknown Completed [facility] Pneumococcal 20 Conjugate, PCV20 (Prevnar 20) Unknown Completed [facility] Influenza Virus Vaccine,quad Im,preserve Free 65+ (FLUAD) Unknown Completed [facility] Influenza High Dose Unknown Completed [facility] Pneumococcal 13 Conjugate, PCV13 (Prevnar 13) Unknown Completed [facility] SARS-COV-2 COVID-19 PFIZER VACCINE Unknown Completed [facility] SARS-COV-2 COVID-19 PFIZER VACCINE Unknown Completed [facility] SARS-COV-2 COVID-19 PFIZER VACCINE Unknown Completed [facility] Pneumococcal 20 Conjugate, PCV20 (Prevnar 20) Unknown Completed [facility] Influenza Virus Vaccine,quad Im,preserve Free 65+ (FLUAD) Unknown Completed [facility] Influenza High Dose Unknown Completed [facility] Pneumococcal 13 Conjugate, PCV13 (Prevnar 13) Unknown Completed [facility] SARS-COV-2 COVID-19 PFIZER VACCINE Unknown Completed [facility] SARS-COV-2 COVID-19 PFIZER VACCINE Unknown Completed [facility] SARS-COV-2 COVID-19 PFIZER VACCINE Unknown Completed [facility] Pneumococcal 20 Conjugate, PCV20 (Prevnar 20) Unknown Completed [facility] Influenza Virus Vaccine,quad Im,preserve Free 65+ (FLUAD) Unknown Completed [facility] Influenza High Dose Unknown Completed [facility] Pneumococcal 13 Conjugate, PCV13 (Prevnar 13) Unknown Completed [facility] SARS-COV-2 COVID-19 PFIZER VACCINE Unknown Completed [facility] SARS-COV-2 COVID-19 PFIZER VACCINE Unknown Completed [facility] SARS-COV-2 COVID-19 PFIZER VACCINE Unknown Completed [facility] Pneumococcal 20 Conjugate, PCV20 (Prevnar 20) Unknown Completed [facility] Influenza Virus Vaccine,quad Im,preserve Free 65+ (FLUAD) Unknown Completed [facility] Influenza High Dose Unknown Completed [facility] Pneumococcal 13 Conjugate, PCV13 (Prevnar 13) Unknown Completed [facility] SARS-COV-2 COVID-19 PFIZER VACCINE Unknown Completed [facility] SARS-COV-2 COVID-19 PFIZER VACCINE Unknown Completed [facility] SARS-COV-2 COVID-19 PFIZER VACCINE Unknown Completed [facility] Pneumococcal 20 Conjugate, PCV20 (Prevnar 20) Unknown Completed [facility] Influenza Virus Vaccine,quad Im,preserve Free 65+ (FLUAD) Unknown Completed [facility] Influenza High Dose Unknown Completed [facility] Pneumococcal 13 Conjugate, PCV13 (Prevnar 13) Unknown Completed [facility] SARS-COV-2 COVID-19 PFIZER VACCINE Unknown Completed [facility] SARS-COV-2 COVID-19 PFIZER VACCINE Unknown Completed [facility] SARS-COV-2 COVID-19 PFIZER VACCINE Unknown Completed [facility] Pneumococcal 20 Conjugate, PCV20 (Prevnar 20) Unknown Completed [facility] Influenza Virus Vaccine,quad Im,preserve Free 65+ (FLUAD) Unknown Completed [facility] Influenza High Dose Unknown Completed [facility] Pneumococcal 13 Conjugate, PCV13 (Prevnar 13) Unknown Completed [facility] SARS-COV-2 COVID-19 PFIZER VACCINE Unknown Completed [facility] SARS-COV-2 COVID-19 PFIZER VACCINE Unknown Completed [facility] SARS-COV-2 COVID-19 PFIZER VACCINE Unknown Completed [facility] Pneumococcal 20 Conjugate, PCV20 (Prevnar 20) Unknown Completed [facility] Influenza Virus Vaccine,quad Im,preserve Free 65+ (FLUAD) Unknown Completed [facility] Influenza High Dose Unknown Completed [facility] Pneumococcal 13 Conjugate, PCV13 (Prevnar 13) Unknown Completed [facility] SARS-COV-2 COVID-19 PFIZER VACCINE Unknown Completed [facility] SARS-COV-2 COVID-19 PFIZER VACCINE Unknown Completed [facility] SARS-COV-2 COVID-19 PFIZER VACCINE Unknown Completed [facility] Pneumococcal 20 Conjugate, PCV20 (Prevnar 20) Unknown Completed [facility] Influenza Virus Vaccine,quad Im,preserve Free 65+ (FLUAD) Unknown Completed [facility] Influenza High Dose Unknown Completed [facility] Pneumococcal 13 Conjugate, PCV13 (Prevnar 13) Unknown Completed [facility] SARS-COV-2 COVID-19 PFIZER VACCINE Unknown Completed [facility] SARS-COV-2 COVID-19 PFIZER VACCINE Unknown Completed [facility] SARS-COV-2 COVID-19 PFIZER VACCINE Unknown Completed [facility] Pneumococcal 20 Conjugate, PCV20 (Prevnar 20) Unknown Completed [facility] Influenza Virus Vaccine,quad Im,preserve Free 65+ (FLUAD) Unknown Completed [facility] Influenza High Dose Unknown Completed [facility] Pneumococcal 13 Conjugate, PCV13 (Prevnar 13) Unknown Completed [facility] SARS-COV-2 COVID-19 PFIZER VACCINE Unknown Completed [facility] SARS-COV-2 COVID-19 PFIZER VACCINE Unknown Completed [facility] SARS-COV-2 COVID-19 PFIZER VACCINE Unknown Completed [facility] Pneumococcal 20 Conjugate, PCV20 (Prevnar 20) Unknown Completed [facility] Influenza Virus Vaccine,quad Im,preserve Free 65+ (FLUAD) Unknown Completed [facility] Influenza High Dose Unknown Completed [facility] Pneumococcal 13 Conjugate, PCV13 (Prevnar 13) Unknown Completed [facility] SARS-COV-2 COVID-19 PFIZER VACCINE Unknown Completed [facility] SARS-COV-2 COVID-19 PFIZER VACCINE Unknown Completed [facility] SARS-COV-2 COVID-19 PFIZER VACCINE Unknown Completed [facility] Pneumococcal 20 Conjugate, PCV20 (Prevnar 20) Unknown Completed [facility] Influenza Virus Vaccine,quad Im,preserve Free 65+ (FLUAD) Unknown Completed [facility] Influenza High Dose Unknown Completed [facility] Pneumococcal 13 Conjugate, PCV13 (Prevnar 13) Unknown Completed [facility] SARS-COV-2 COVID-19 PFIZER VACCINE Unknown Completed [facility] SARS-COV-2 COVID-19 PFIZER VACCINE Unknown Completed [facility] SARS-COV-2 COVID-19 PFIZER VACCINE Unknown Completed [facility] Pneumococcal 20 Conjugate, PCV20 (Prevnar 20) Unknown Completed [facility] Influenza Virus Vaccine,quad Im,preserve Free 65+ (FLUAD) Unknown Completed [facility] Influenza High Dose Unknown Completed [facility] Pneumococcal 13 Conjugate, PCV13 (Prevnar 13) Unknown Completed [facility] SARS-COV-2 COVID-19 PFIZER VACCINE Unknown Completed [facility] SARS-COV-2 COVID-19 PFIZER VACCINE Unknown Completed [facility] SARS-COV-2 COVID-19 PFIZER VACCINE Unknown Completed [facility] Pneumococcal 20 Conjugate, PCV20 (Prevnar 20) Unknown Completed [facility] Influenza Virus Vaccine,quad Im,preserve Free 65+ (FLUAD) Unknown Completed [facility] Influenza High Dose Unknown Completed [facility] Pneumococcal 13 Conjugate, PCV13 (Prevnar 13) Unknown Completed [facility] SARS-COV-2 COVID-19 PFIZER VACCINE Unknown Completed [facility] SARS-COV-2 COVID-19 PFIZER VACCINE Unknown Completed [facility] SARS-COV-2 COVID-19 PFIZER VACCINE Unknown Completed [facility] Pneumococcal 20 Conjugate, PCV20 (Prevnar 20) Unknown Completed [facility] Influenza Virus Vaccine,quad Im,preserve Free 65+ (FLUAD) Unknown Completed [facility] Influenza High Dose Unknown Completed [facility] Pneumococcal 13 Conjugate, PCV13 (Prevnar 13) Unknown Completed [facility] SARS-COV-2 COVID-19 PFIZER VACCINE Unknown Completed [facility] SARS-COV-2 COVID-19 PFIZER VACCINE Unknown Completed [facility] SARS-COV-2 COVID-19 PFIZER VACCINE Unknown Completed [facility] Pneumococcal 20 Conjugate, PCV20 (Prevnar 20) Unknown Completed [facility] Influenza Virus Vaccine,quad Im,preserve Free 65+ (FLUAD) Unknown Completed [facility] Influenza High Dose Unknown Completed [facility] Pneumococcal 13 Conjugate, PCV13 (Prevnar 13) Unknown Completed [facility] SARS-COV-2 COVID-19 PFIZER VACCINE Unknown Completed [facility] SARS-COV-2 COVID-19 PFIZER VACCINE Unknown Completed [facility] SARS-COV-2 COVID-19 PFIZER VACCINE Unknown Completed [facility] Pneumococcal 20 Conjugate, PCV20 (Prevnar 20) Unknown Completed [facility] Influenza Virus Vaccine,quad Im,preserve Free 65+ (FLUAD) Unknown Completed [facility] Influenza High Dose Unknown Completed [facility] Pneumococcal 13 Conjugate, PCV13 (Prevnar 13) Unknown Completed [facility] SARS-COV-2 COVID-19 PFIZER VACCINE Unknown Completed [facility] SARS-COV-2 COVID-19 PFIZER VACCINE Unknown Completed [facility] SARS-COV-2 COVID-19 PFIZER VACCINE Unknown Completed [facility] Pneumococcal 20 Conjugate, PCV20 (Prevnar 20) Unknown Completed [facility] Influenza Virus Vaccine,quad Im,preserve Free 65+ (FLUAD) Unknown Completed [facility] Influenza High Dose Unknown Completed [facility] Pneumococcal 13 Conjugate, PCV13 (Prevnar 13) Unknown Completed [facility] SARS-COV-2 COVID-19 PFIZER VACCINE Unknown Completed [facility] SARS-COV-2 COVID-19 PFIZER VACCINE Unknown Completed [facility] SARS-COV-2 COVID-19 PFIZER VACCINE Unknown Completed [facility] Pneumococcal 20 Conjugate, PCV20 (Prevnar 20) Unknown Completed [facility] Influenza Virus Vaccine,quad Im,preserve Free 65+ (FLUAD) Unknown Completed [facility] Influenza High Dose Unknown Completed [facility] Pneumococcal 13 Conjugate, PCV13 (Prevnar 13) Unknown Completed [facility] SARS-COV-2 COVID-19 PFIZER VACCINE Unknown Completed [facility] SARS-COV-2 COVID-19 PFIZER VACCINE Unknown Completed [facility] SARS-COV-2 COVID-19 PFIZER VACCINE Unknown Completed [facility] Pneumococcal 20 Conjugate, PCV20 (Prevnar 20) Unknown Completed [facility] Influenza Virus Vaccine,quad Im,preserve Free 65+ (FLUAD) Unknown Completed [facility] Influenza High Dose Unknown Completed [facility] Pneumococcal 13 Conjugate, PCV13 (Prevnar 13) Unknown Completed [facility] SARS-COV-2 COVID-19 PFIZER VACCINE Unknown Completed [facility] SARS-COV-2 COVID-19 PFIZER VACCINE Unknown Completed [facility] SARS-COV-2 COVID-19 PFIZER VACCINE Unknown Completed [facility] Pneumococcal 20 Conjugate, PCV20 (Prevnar 20) Unknown Completed [facility] Influenza Virus Vaccine,quad Im,preserve Free 65+ (FLUAD) Unknown Completed [facility] Influenza High Dose Unknown Completed [facility] Pneumococcal 13 Conjugate, PCV13 (Prevnar 13) Unknown Completed [facility] SARS-COV-2 COVID-19 PFIZER VACCINE Unknown Completed [facility] SARS-COV-2 COVID-19 PFIZER VACCINE Unknown Completed [facility] SARS-COV-2 COVID-19 PFIZER VACCINE Unknown Completed [facility] Pneumococcal 20 Conjugate, PCV20 (Prevnar 20) Unknown Completed [facility] Influenza Virus Vaccine,quad Im,preserve Free 65+ (FLUAD) Unknown Completed [facility] Influenza High Dose Unknown Completed [facility] Pneumococcal 13 Conjugate, PCV13 (Prevnar 13) Unknown Completed [facility] Influenza High Dose Unknown Completed [facility] Pneumococcal 13 Conjugate, PCV13 (Prevnar 13) Unknown Completed [facility] SARS-COV-2 COVID-19 PFIZER VACCINE Unknown Completed [facility] SARS-COV-2 COVID-19 PFIZER VACCINE Unknown Completed [facility] SARS-COV-2 COVID-19 PFIZER VACCINE Unknown Completed [facility] Pneumococcal 20 Conjugate, PCV20 (Prevnar 20) Unknown Completed [facility] Influenza Virus Vaccine,quad Im,preserve Free 65+ (FLUAD) Unknown Completed [facility] Influenza High Dose Unknown Completed [facility] Pneumococcal 13 Conjugate, PCV13 (Prevnar 13) Unknown Completed [facility] SARS-COV-2 COVID-19 PFIZER VACCINE Unknown Completed [facility] SARS-COV-2 COVID-19 PFIZER VACCINE Unknown Completed [facility] SARS-COV-2 COVID-19 PFIZER VACCINE Unknown Completed [facility] Pneumococcal 20 Conjugate, PCV20 (Prevnar 20) Unknown Completed [facility] Influenza Virus Vaccine,quad Im,preserve Free 65+ (FLUAD) Unknown Completed [facility] Influenza High Dose Unknown Completed [facility] Pneumococcal 13 Conjugate, PCV13 (Prevnar 13) Unknown Completed [facility] SARS-COV-2 COVID-19 PFIZER VACCINE Unknown Completed [facility] SARS-COV-2 COVID-19 PFIZER VACCINE Unknown Completed [facility] SARS-COV-2 COVID-19 PFIZER VACCINE Unknown Completed [facility] Pneumococcal 20 Conjugate, PCV20 (Prevnar 20) Unknown Completed [facility] Influenza Virus Vaccine,quad Im,preserve Free 65+ (FLUAD) Unknown Completed [facility] Vital Signs Vital Name Observation Time Observation Value Comments S ource Systolic blood pressure 2023-09-08 19:30:00 143 mm[Hg] [facility] Diastolic blood pressure 2023-09-08 19:30:00 66 mm[Hg] [facility] Heart rate 2023-09-08 19:30:00 77 /min [facility] Body temperature 2023-09-08 19:30:00 36.72 Joyce [facility] Respiratory rate 2023-09-08 19:30:00 18 /min [facility] Oxygen saturation in Arterial blood by Pulse oximetry 2023-09-08 19:30:00 100 /min [facility] Body height 2023-09-08 16:18:00 172.7 cm [facility] Body weight 2023-09-08 16:18:00 52.617 kg [facility] BMI 2023-09-08 16:18:00 17.64 kg/m2 [facility] Systolic blood pressure 2023-09-07 21:00:00 123 mm[Hg] [facility] Diastolic blood pressure 2023-09-07 21:00:00 77 mm[Hg] [facility] Heart rate 2023-09-07 21:00:00 77 /min [facility] Respiratory rate 2023-09-07 21:00:00 24 /min [facility] Oxygen saturation in Arterial blood by Pulse oximetry 2023-09-07 21:00:00 96 /min [facility] Body temperature 2023-09-07 18:44:00 36.61 Joyce [facility] Body weight 2023-09-07 18:44:00 52.617 kg [facility] BMI 2023-09-07 18:44:00 17.64 kg/m2 [facility] Systolic blood pressure 2023-08-11 19:09:00 150 mm[Hg] [facility] Diastolic blood pressure 2023-08-11 19:09:00 89 mm[Hg] [facility] Heart rate 2023-08-11 19:09:00 73 /min [facility] Body temperature 2023-08-11 19:05:00 36.56 Joyce [facility] Body height 2023-08-11 19:05:00 172.7 cm [facility] Body weight 2023-08-11 19:05:00 52.617 kg [facility] BMI 2023-08-11 19:05:00 17.64 kg/m2 [facility] Oxygen saturation in Arterial blood by Pulse oximetry 2023-08-11 19:05:00 95 /min [facility] Systolic blood pressure 2023-08-05 15:30:00 132 mm[Hg] [facility] Diastolic blood pressure 2023-08-05 15:30:00 80 mm[Hg] [facility] Heart rate 2023-08-05 15:30:00 106 /min [facility] Body temperature 2023-08-05 15:30:00 35.83 Joyce [facility] Respiratory rate 2023-08-05 15:30:00 20 /min [facility] Body height 2023-08-05 15:30:00 172.7 cm [facility] Body weight 2023-08-05 15:30:00 52.98 kg [facility] BMI 2023-08-05 15:30:00 17.76 kg/m2 [facility] Oxygen saturation in Arterial blood by Pulse oximetry 2023-08-05 15:30:00 92 /min [facility] Systolic blood pressure 2023-07-15 15:45:00 141 mm[Hg] [facility] Diastolic blood pressure 2023-07-15 15:45:00 83 mm[Hg] [facility] Heart rate 2023-07-15 15:45:00 100 /min [facility] Body temperature 2023-07-15 15:40:00 36.56 Joyce [facility] Body height 2023-07-15 15:40:00 172.7 cm [facility] Body weight 2023-07-15 15:40:00 58.06 kg [facility] BMI 2023-07-15 15:40:00 19.46 kg/m2 [facility] Oxygen saturation in Arterial blood by Pulse oximetry 2023-07-15 15:40:00 94 /min [facility] Systolic blood pressure 2023-06-10 18:30:00 158 mm[Hg] [facility] Diastolic blood pressure 2023-06-10 18:30:00 107 mm[Hg] [facility] Heart rate 2023-06-10 18:30:00 73 /min [facility] Respiratory rate 2023-06-10 18:30:00 33 /min [facility] Oxygen saturation in Arterial blood by Pulse oximetry 2023-06-10 18:30:00 98 /min [facility] Body temperature 2023-06-10 17:29:00 36.17 Joyce [facility] Systolic blood pressure 2023-06-10 17:25:00 187 mm[Hg] [facility] Diastolic blood pressure 2023-06-10 17:25:00 106 mm[Hg] [facility] Heart rate 2023-06-10 17:25:00 72 /min [facility] Body temperature 2023-06-10 17:22:00 36.44 Joyce [facility] Respiratory rate 2023-06-10 17:22:00 28 /min [facility] Body height 2023-06-10 17:22:00 172.7 cm [facility] Body weight 2023-06-10 17:22:00 58.06 kg [facility] BMI 2023-06-10 17:22:00 19.46 kg/m2 [facility] Oxygen saturation in Arterial blood by Pulse oximetry 2023-06-10 17:22:00 97 /min 4 L [facility] Systolic blood pressure 2023-06-07 16:55:00 148 mm[Hg] [facility] Diastolic blood pressure 2023-06-07 16:55:00 87 mm[Hg] [facility] Heart rate 2023-06-07 16:54:00 67 /min [facility] Body temperature 2023-06-07 16:54:00 35.56 Joyce [facility] Respiratory rate 2023-06-07 16:54:00 18 /min [facility] Body height 2023-06-07 16:54:00 172.7 cm [facility] Body weight 2023-06-07 16:54:00 55.792 kg [facility] BMI 2023-06-07 16:54:00 18.70 kg/m2 [facility] Oxygen saturation in Arterial blood by Pulse oximetry 2023-06-07 16:54:00 95 /min [facility] Systolic blood pressure 2023-06-02 17:03:00 170 mm[Hg] Patient denies s/s of coronary distress [facility] Diastolic blood pressure 2023-06-02 17:03:00 72 mm[Hg] Patient denies s/s of coronary distress [facility] Heart rate 2023-06-02 16:54:00 67 /min [facility] Body temperature 2023-06-02 16:54:00 36.78 Joyce [facility] Respiratory rate 2023-06-02 16:54:00 20 /min [facility] Body height 2023-06-02 16:54:00 172.7 cm [facility] Body weight 2023-06-02 16:54:00 55.792 kg [facility] BMI 2023-06-02 16:54:00 18.70 kg/m2 [facility] Oxygen saturation in Arterial blood by Pulse oximetry 2023-06-02 16:54:00 96 /min [facility] Body temperature 2023-05-24 16:23:00 35.89 Joyce [facility] Body weight 2023-05-24 16:23:00 55.792 kg [facility] BMI 2023-05-24 16:23:00 18.70 kg/m2 [facility] Systolic blood pressure 2023-03-28 16:57:00 171 mm[Hg] [facility] Diastolic blood pressure 2023-03-28 16:57:00 91 mm[Hg] [facility] Heart rate 2023-03-28 16:57:00 75 /min [facility] Body temperature 2023-03-28 16:54:00 36.67 Joyce [facility] Body height 2023-03-28 16:54:00 172.7 cm [facility] Body weight 2023-03-28 16:54:00 57.607 kg [facility] BMI 2023-03-28 16:54:00 19.31 kg/m2 [facility] Oxygen saturation in Arterial blood by Pulse oximetry 2023-03-28 16:54:00 90 /min [facility] Systolic blood pressure 2023-03-07 20:46:00 179 mm[Hg] Checked by Carmen MAURER [facility] Diastolic blood pressure 2023-03-07 20:46:00 90 mm[Hg] Checked by Carmen MAURER [facility] Heart rate 2023-03-07 20:46:00 93 /min [facility] Oxygen saturation in Arterial blood by Pulse oximetry 2023-03-07 20:26:00 91 /min Pt is on 3L of oxygen [facility] Body temperature 2023-03-07 20:25:00 35.72 Joyce [facility] Respiratory rate 2023-03-07 20:25:00 18 /min [facility] Body weight 2023-03-07 20:25:00 57.652 kg [facility] BMI 2023-03-07 20:25:00 19.33 kg/m2 [facility] Body weight 2023-03-07 16:17:00 58.514 kg [facility] BMI 2023-03-07 16:17:00 19.62 kg/m2 [facility] Systolic blood pressure 2023-02-15 20:00:00 141 mm[Hg] [facility] Diastolic blood pressure 2023-02-15 20:00:00 78 mm[Hg] [facility] Respiratory rate 2023-02-15 20:00:00 20 /min [facility] Oxygen saturation in Arterial blood by Pulse oximetry 2023-02-15 20:00:00 97 /min [facility] Heart rate 2023-02-15 15:49:00 75 /min [facility] Body height 2023-02-15 15:48:00 172.7 cm [facility] Body weight 2023-02-15 15:48:00 58.9 kg [facility] BMI 2023-02-15 15:48:00 19.75 kg/m2 [facility] Systolic blood pressure 2023-02-11 13:10:00 135 mm[Hg] [facility] Diastolic blood pressure 2023-02-11 13:10:00 69 mm[Hg] [facility] Heart rate 2023-02-11 13:10:00 63 /min [facility] Body temperature 2023-02-11 13:10:00 35.83 Joyce [facility] Respiratory rate 2023-02-11 13:10:00 18 /min [facility] Body height 2023-02-11 13:10:00 172.7 cm [facility] Body weight 2023-02-11 13:10:00 58.877 kg [facility] BMI 2023-02-11 13:10:00 19.74 kg/m2 [facility] Oxygen saturation in Arterial blood by Pulse oximetry 2023-02-11 13:10:00 97 /min 3L [facility] Systolic blood pressure 2023-01-31 19:02:00 148 mm[Hg] [facility] Diastolic blood pressure 2023-01-31 19:02:00 90 mm[Hg] [facility] Heart rate 2023-01-31 18:32:00 79 /min [facility] Body temperature 2023-01-31 18:32:00 36.5 Joyce [facility] Respiratory rate 2023-01-31 18:32:00 16 /min [facility] Body height 2023-01-31 18:32:00 172.7 cm [facility] Body weight 2023-01-31 18:32:00 58.514 kg [facility] BMI 2023-01-31 18:32:00 19.61 kg/m2 [facility] Oxygen saturation in Arterial blood by Pulse oximetry 2023-01-31 18:32:00 88 /min [facility] Heart rate 2023-01-25 16:57:00 89 /min [facility] Oxygen saturation in Arterial blood by Pulse oximetry 2023-01-25 16:57:00 98 /min [facility] Systolic blood pressure 2023-01-25 16:54:00 124 mm[Hg] [facility] Diastolic blood pressure 2023-01-25 16:54:00 77 mm[Hg] [facility] Body height 2023-01-25 16:12:00 172.7 cm [facility] Body weight 2023-01-25 16:12:00 59.875 kg [facility] BMI 2023-01-25 16:12:00 20.07 kg/m2 [facility] Body weight 2023-01-24 16:07:00 59.875 kg [facility] BMI 2023-01-24 16:07:00 20.07 kg/m2 [facility] Systolic blood pressure 2023-01-21 15:25:00 118 mm[Hg] [facility] Diastolic blood pressure 2023-01-21 15:25:00 78 mm[Hg] [facility] Heart rate 2023-01-21 15:25:00 77 /min [facility] Body temperature 2023-01-21 15:25:00 36.28 Joyce [facility] Respiratory rate 2023-01-21 15:25:00 22 /min [facility] Body height 2023-01-21 15:25:00 172.7 cm [facility] Body weight 2023-01-21 15:25:00 60.238 kg [facility] BMI 2023-01-21 15:25:00 20.19 kg/m2 [facility] Oxygen saturation in Arterial blood by Pulse oximetry 2023-01-21 15:25:00 90 /min 3 L [facility] Systolic blood pressure 2023-01-11 18:06:00 135 mm[Hg] provider notified Dr. Espinal [facility] Diastolic blood pressure 2023-01-11 18:06:00 92 mm[Hg] provider notified Dr. Espinal [facility] Heart rate 2023-01-11 18:06:00 73 /min [facility] Respiratory rate 2023-01-11 18:06:00 20 /min [facility] Oxygen saturation in Arterial blood by Pulse oximetry 2023-01-11 18:06:00 94 /min [facility] Body temperature 2023-01-11 18:03:00 36.11 Joyce [facility] Body height 2023-01-11 18:03:00 176.8 cm [facility] Body weight 2023-01-11 18:03:00 59.829 kg [facility] BMI 2023-01-11 18:03:00 19.14 kg/m2 [facility] Systolic blood pressure 2022-12-22 16:04:00 143 mm[Hg] [facility] Diastolic blood pressure 2022-12-22 16:04:00 90 mm[Hg] [facility] Heart rate 2022-12-22 16:04:00 77 /min [facility] Body temperature 2022-12-22 16:01:00 36.56 Joyce [facility] Body height 2022-12-22 16:01:00 172.7 cm [facility] Body weight 2022-12-22 16:01:00 60.328 kg [facility] BMI 2022-12-22 16:01:00 20.22 kg/m2 [facility] Oxygen saturation in Arterial blood by Pulse oximetry 2022-12-22 16:01:00 92 /min [facility] Body weight 2022-12-16 15:41:00 60.328 kg [facility] BMI 2022-12-16 15:41:00 20.22 kg/m2 [facility] Systolic blood pressure 2022-12-15 20:09:00 175 mm[Hg] [facility] Diastolic blood pressure 2022-12-15 20:09:00 89 mm[Hg] [facility] Heart rate 2022-12-15 20:09:00 86 /min [facility] Respiratory rate 2022-12-15 20:09:00 19 /min [facility] Body height 2022-12-15 20:09:00 172.7 cm [facility] Body weight 2022-12-15 20:09:00 60.555 kg [facility] BMI 2022-12-15 20:09:00 20.30 kg/m2 [facility] Oxygen saturation in Arterial blood by Pulse oximetry 2022-12-15 20:09:00 91 /min [facility] Systolic blood pressure 2022-11-15 17:57:00 139 mm[Hg] [facility] Diastolic blood pressure 2022-11-15 17:57:00 82 mm[Hg] [facility] Heart rate 2022-11-15 17:57:00 90 /min [facility] Body temperature 2022-11-15 17:57:00 36.61 Joyce [facility] Respiratory rate 2022-11-15 17:57:00 18 /min [facility] Oxygen saturation in Arterial blood by Pulse oximetry 2022-11-15 17:57:00 90 /min [facility] Body weight 2022-11-12 10:02:00 60.328 kg [facility] BMI 2022-11-12 10:02:00 20.22 kg/m2 [facility] Body height 2022-11-02 01:00:00 172.7 cm [facility] Body weight 2022-11-01 16:00:00 62.143 kg [facility] BMI 2022-11-01 16:00:00 20.83 kg/m2 [facility] Systolic blood pressure 2022-10-19 19:32:00 150 mm[Hg] [facility] Diastolic blood pressure 2022-10-19 19:32:00 70 mm[Hg] [facility] Heart rate 2022-10-19 19:32:00 80 /min [facility] Body temperature 2022-10-19 19:27:00 36.67 Joyce [facility] Respiratory rate 2022-10-19 19:27:00 19 /min [facility] Body height 2022-10-19 19:27:00 172.7 cm [facility] Body weight 2022-10-19 19:27:00 62.551 kg [facility] BMI 2022-10-19 19:27:00 20.97 kg/m2 [facility] Oxygen saturation in Arterial blood by Pulse oximetry 2022-10-19 19:27:00 92 /min [facility] Body weight 2022-09-30 18:37:00 65.772 kg [facility] BMI 2022-09-30 18:37:00 22.05 kg/m2 [facility] Systolic blood pressure 2022-09-30 16:25:00 174 mm[Hg] [facility] Diastolic blood pressure 2022-09-30 16:25:00 93 mm[Hg] [facility] Heart rate 2022-09-30 16:22:00 89 /min [facility] Body temperature 2022-09-30 16:22:00 36.89 Joyce [facility] Respiratory rate 2022-09-30 16:22:00 24 /min [facility] Body height 2022-09-30 16:22:00 172.7 cm [facility] Body weight 2022-09-30 16:22:00 66.134 kg [facility] BMI 2022-09-30 16:22:00 22.17 kg/m2 [facility] Oxygen saturation in Arterial blood by Pulse oximetry 2022-09-30 16:22:00 91 /min pt has COPD not oxygent dependent [facility] Body weight 2022-09-02 18:18:00 65.772 kg [facility] BMI 2022-09-02 18:18:00 22.05 kg/m2 [facility] Systolic blood pressure 2022-08-30 17:09:00 179 mm[Hg] RN re took BP and o2 sat per Rukhsana DIAZ [facility] Diastolic blood pressure 2022-08-30 17:09:00 90 mm[Hg] RN re took BP and o2 sat per Rukhsana DIAZ [facility] Heart rate 2022-08-30 17:09:00 72 /min [facility] Oxygen saturation in Arterial blood by Pulse oximetry 2022-08-30 17:09:00 92 /min [facility] Body temperature 2022-08-30 16:14:00 36.17 Joyce [facility] Respiratory rate 2022-08-30 16:14:00 21 /min Nurse Carmen notified. [facility] Body height 2022-08-30 16:14:00 172.7 cm [facility] Body weight 2022-08-30 16:14:00 65.998 kg [facility] BMI 2022-08-30 16:14:00 22.12 kg/m2 [facility] Body weight 2022-08-26 14:57:00 65.772 kg [facility] BMI 2022-08-26 14:57:00 22.05 kg/m2 [facility] Systolic blood pressure 2022-08-12 15:36:00 170 mm[Hg] [facility] Diastolic blood pressure 2022-08-12 15:36:00 84 mm[Hg] [facility] Heart rate 2022-08-12 15:36:00 71 /min [facility] Body temperature 2022-08-12 15:35:00 36.11 Joyce [facility] Respiratory rate 2022-08-12 15:35:00 18 /min [facility] Body height 2022-08-12 15:35:00 172.7 cm [facility] Body weight 2022-08-12 15:35:00 65.908 kg [facility] BMI 2022-08-12 15:35:00 22.09 kg/m2 [facility] Oxygen saturation in Arterial blood by Pulse oximetry 2022-08-12 15:35:00 93 /min room air [facility] Systolic blood pressure 2022-07-08 14:19:00 188 mm[Hg] [facility] Diastolic blood pressure 2022-07-08 14:19:00 95 mm[Hg] [facility] Heart rate 2022-07-08 14:16:00 79 /min [facility] Body temperature 2022-07-08 14:16:00 36.06 Joyce [facility] Respiratory rate 2022-07-08 14:16:00 16 /min [facility] Body height 2022-07-08 14:16:00 172.7 cm [facility] Body weight 2022-07-08 14:16:00 66.134 kg [facility] BMI 2022-07-08 14:16:00 22.17 kg/m2 [facility] Oxygen saturation in Arterial blood by Pulse oximetry 2022-07-08 14:16:00 92 /min [facility] Body weight 2022-06-24 19:50:00 66.679 kg [facility] BMI 2022-06-24 19:50:00 22.35 kg/m2 [facility] Systolic blood pressure 2022-06-24 16:24:00 162 mm[Hg] [facility] Diastolic blood pressure 2022-06-24 16:24:00 74 mm[Hg] [facility] Heart rate 2022-06-24 16:24:00 86 /min [facility] Body temperature 2022-06-24 16:19:00 36.56 Joyce [facility] Body height 2022-06-24 16:19:00 172.7 cm [facility] Body weight 2022-06-24 16:19:00 66.815 kg [facility] BMI 2022-06-24 16:19:00 22.40 kg/m2 [facility] Oxygen saturation in Arterial blood by Pulse oximetry 2022-06-24 16:19:00 94 /min [facility] Systolic blood pressure 2022-06-11 18:23:00 173 mm[Hg] [facility] Diastolic blood pressure 2022-06-11 18:23:00 94 mm[Hg] [facility] Heart rate 2022-06-11 18:23:00 74 /min [facility] Body temperature 2022-06-11 17:28:00 36.11 Joyce [facility] Respiratory rate 2022-06-11 17:28:00 20 /min [facility] Oxygen saturation in Arterial blood by Pulse oximetry 2022-06-11 17:28:00 92 /min [facility] Body weight 2022-06-11 09:25:00 65.998 kg [facility] BMI 2022-06-11 09:25:00 22.12 kg/m2 [facility] Body height 2022-06-10 03:06:00 172.7 cm [facility] Systolic blood pressure 2022-06-03 17:55:00 187 mm[Hg] [facility] Diastolic blood pressure 2022-06-03 17:55:00 101 mm[Hg] [facility] Heart rate 2022-06-03 17:55:00 76 /min [facility] Body temperature 2022-06-03 17:50:00 36.44 Joyce [facility] Respiratory rate 2022-06-03 17:50:00 20 /min [facility] Body height 2022-06-03 17:50:00 172.7 cm [facility] Body weight 2022-06-03 17:50:00 66.679 kg [facility] BMI 2022-06-03 17:50:00 22.35 kg/m2 [facility] Systolic blood pressure 2022-05-31 18:26:00 158 mm[Hg] [facility] Diastolic blood pressure 2022-05-31 18:26:00 75 mm[Hg] [facility] Heart rate 2022-05-31 18:05:00 73 /min [facility] Body temperature 2022-05-31 18:05:00 36.28 Joyce [facility] Respiratory rate 2022-05-31 18:05:00 19 /min [facility] Body height 2022-05-31 18:05:00 172.7 cm [facility] Body weight 2022-05-31 18:05:00 66.769 kg [facility] BMI 2022-05-31 18:05:00 22.38 kg/m2 [facility] Oxygen saturation in Arterial blood by Pulse oximetry 2022-05-31 18:05:00 94 /min [facility] Systolic blood pressure 2022-05-25 19:45:00 177 mm[Hg] [facility] Diastolic blood pressure 2022-05-25 19:45:00 94 mm[Hg] [facility] Heart rate 2022-05-25 19:45:00 74 /min [facility] Body temperature 2022-05-25 19:45:00 36.67 Joyce [facility] Body weight 2022-05-25 19:45:00 67.994 kg [facility] BMI 2022-05-25 19:45:00 22.79 kg/m2 [facility] Body weight 2022-05-06 16:43:00 66.225 kg [facility] BMI 2022-05-06 16:43:00 22.20 kg/m2 [facility] Systolic blood pressure 2022-04-28 20:05:00 139 mm[Hg] [facility] Diastolic blood pressure 2022-04-28 20:05:00 67 mm[Hg] [facility] Heart rate 2022-04-28 20:05:00 85 /min [facility] Body temperature 2022-04-28 20:05:00 36.11 Joyce [facility] Body height 2022-04-28 20:05:00 172.7 cm [facility] Body weight 2022-04-28 20:05:00 66.316 kg [facility] BMI 2022-04-28 20:05:00 22.23 kg/m2 [facility] Oxygen saturation in Arterial blood by Pulse oximetry 2022-04-28 20:05:00 90 /min [facility] Systolic blood pressure 2022-04-15 15:55:00 190 mm[Hg] [facility] Diastolic blood pressure 2022-04-15 15:55:00 86 mm[Hg] [facility] Heart rate 2022-04-15 15:49:00 63 /min [facility] Body temperature 2022-04-15 15:49:00 36.5 Joyce [facility] Body height 2022-04-15 15:49:00 172.7 cm [facility] Body weight 2022-04-15 15:49:00 66.769 kg [facility] BMI 2022-04-15 15:49:00 22.38 kg/m2 [facility] Oxygen saturation in Arterial blood by Pulse oximetry 2022-04-15 15:49:00 94 /min [facility] Body weight 2022-04-08 18:09:00 64.864 kg [facility] BMI 2022-04-08 18:09:00 21.74 kg/m2 [facility] Systolic blood pressure 2022-03-17 15:54:00 179 mm[Hg] [facility] Diastolic blood pressure 2022-03-17 15:54:00 78 mm[Hg] [facility] Heart rate 2022-03-17 15:54:00 88 /min [facility] Body temperature 2022-03-17 15:54:00 36.39 Joyce [facility] Respiratory rate 2022-03-17 15:54:00 18 /min [facility] Body height 2022-03-17 15:54:00 172.7 cm [facility] Body weight 2022-03-17 15:54:00 64.91 kg [facility] BMI 2022-03-17 15:54:00 21.76 kg/m2 [facility] Body weight 2022-03-11 19:59:00 66.225 kg [facility] BMI 2022-03-11 19:59:00 22.20 kg/m2 [facility] Systolic blood pressure 2022-03-04 15:47:00 176 mm[Hg] [facility] Diastolic blood pressure 2022-03-04 15:47:00 76 mm[Hg] [facility] Heart rate 2022-03-04 15:47:00 66 /min [facility] Body temperature 2022-03-04 15:47:00 36.28 Joyce [facility] Respiratory rate 2022-03-04 15:47:00 18 /min [facility] Body height 2022-03-04 15:47:00 172.7 cm [facility] Body weight 2022-03-04 15:47:00 66.225 kg [facility] BMI 2022-03-04 15:47:00 22.20 kg/m2 [facility] Oxygen saturation in Arterial blood by Pulse oximetry 2022-03-04 15:47:00 93 /min [facility] Body weight 2022-02-25 19:04:00 65.772 kg [facility] BMI 2022-02-25 19:04:00 22.05 kg/m2 [facility] Body weight 2022-01-28 18:45:00 65.772 kg [facility] BMI 2022-01-28 18:45:00 22.05 kg/m2 [facility] Systolic blood pressure 2022-01-05 18:45:00 161 mm[Hg] [facility] Diastolic blood pressure 2022-01-05 18:45:00 78 mm[Hg] [facility] Heart rate 2022-01-05 18:45:00 68 /min [facility] Body temperature 2022-01-05 18:45:00 37 Joyce [facility] Respiratory rate 2022-01-05 18:45:00 16 /min [facility] Body weight 2022-01-05 18:45:00 65.772 kg [facility] BMI 2022-01-05 18:45:00 22.05 kg/m2 [facility] Procedures Procedure Date / Time Performed Performing Clinician Source CT ABDOMEN PELVIS WO CONTRAST 2023-09-07 21:21:17 Tomas Martin [facility] URINALYSIS 2023-09-07 20:42:00 Tomas Martin [facility] GALV ONLY - INFLUENZA A B RSV PCR 2023-06-10 18:24:00 Kyara Brothers [facility] XR CHEST 1 VW 2023-06-10 17:55:00 Kyara Brothers [facility] TROPONIN I 2023-06-10 17:51:00 Kyara Brothers [facility] COMP. METABOLIC PANEL (04791) 2023-06-10 17:51:00 Kyara Brothers [facility] CBC WITH DIFF 2023-06-10 17:51:00 Kyara Brothers [facility] D-DIMER 2023-06-10 17:51:00 Kyara Brothers [facility] N-TERMINAL PRO-BNP 2023-06-10 17:51:00 Kyara Brothers tte [facility] EXTRA TUBE DK. GREEN 2023-06-10 17:51:00 Cat Simpson [facility] COVID-19 (ID NOW RAPID TESTING) 2023-06-10 17:51:00 Kyara Brothers [facility] CAROTID DUPLEX BILATERAL - BY VASCULAR LAB 2023-06-02 16:43:00 Joe Tellez [facility] AORTOILIAC DUPLEX - BY VASCULAR LAB 2023-06-02 16:40:31 Joe Tellez [facility] XR HIPS 2 VW LEFT 2023-03-28 18:06:37 Mimi Blakely [facility] FLU VACC(),65+YR,0.5 ML,IM,ADJUVANTED,QUAD(FLUA D) 2023-03-28 16:55:27 Mimi Blakely [facility] INTRAVITREAL INJECTION, PHARMACOLOGIC AGENT - OS - LEFT EYE 2023-03-07 17:03:21 Abner Otero [facility] OCT, RETINA - OU - BOTH EYES 2023-03-07 17:02:57 Abner Otero [facility] DISCLOSURE AND CONSENT, MEDICAL AND SURGICAL PROCEDURES 2023-03-07 06:01:00 Doctor Unassigned, [place] [facility] CARDIAC CATHETERIZATION 2023-02-15 16:40:06 Virgilio [facility] CARDIAC CATHETERIZATION 2023-02-15 16:40:06 Virgilio [facility] CARDIAC CATHETERIZATION 2023-02-15 16:40:06 Virgilio [facility] CARDIAC CATHETERIZATION 2023-02-15 16:40:06 Virgilio [facility] CATH PROCEDURE LOG 2023-02-15 15:59:02 [facility] 2023-02-15 15:59:02 [facility] CATHETER[facility] DOCUMENTS 2023-02-15 05:01:00 Doctor Unassigned, [place] [facility] COMPLETE ECHOCARDIOGRAM DOBUTAMINE STRESS TEST WO CONTRAST 2023-01-25 17:37:00 Jm Espinal [facility] INTRAVITREAL INJECTION, PHARMACOLOGIC AGENT - OS - LEFT EYE 2023-01-24 17:33:06 Abner Otero [facility] OCT, RETINA - OU - BOTH EYES 2023-01-24 17:32:21 Abner Otero [facility] DISCLOSURE AND CONSENT, MEDICAL AND SURGICAL PROCEDURES 2023-01-24 05:01:00 Doctor Unassigned, [place] [facility] PULMONARY FUNCTION TEST (RESULTS) 2023-01-04 16:03:05 Doctor Unassigned, [place] [facility] PNEUMOCOCCAL 20 CONJUGATE (PREVNAR 20) VACCINE 2022-12-22 16:54:45 Mimi Blakely [facility] DISABILITY/FMLA 2022-12-22 05:01:00 Doctor Unass igned, [place] [facility] INTRAVITREAL INJECTION, PHARMACOLOGIC AGENT - OS - LEFT EYE 2022-12-16 17:13:43 Branden pawan [facility] OCT, RETINA - OU - BOTH EYES 2022-12-16 17:12:43 Abner Otero [facility] INSURANCE CORRESPONDENCE 2022-12-13 05:01:00 Ramiro quiroz Unassigned, [place] [facility] BASIC METABOLIC PANEL (NA, K, CL, CO2, GLUCOSE, BUN, CREATININE, CA) 2022-11-15 08:46:00 Veronica Brewer [facility] CBC WITH DIFF 2022-11-15 08:46:00 Veronica Brewer [facility] BASIC METABOLIC PANEL (NA, K, CL, CO2, GLUCOSE, BUN, CREATININE, CA) 2022-11-13 09:25:00 Breana [facility] CBC WITH DIFF 2022-11-13 09:25:00 Arelis Toussaint [facility] BASIC METABOLIC PANEL (NA, K, CL, CO2, GLUCOSE, BUN, CREATININE, CA) 2022-11-12 10:02:00 Milo Sinha [facility] CBC WITH DIFF 2022-11-12 10:02:00 Milo Sinha [facility] BASIC METABOLIC PANEL (NA, K, CL, CO2, GLUCOSE, BUN, CREATININE, CA) 2022-11-11 08:43:00 Milo Sinha [facility] BASIC METABOLIC PANEL (NA, K, CL, CO2, GLUCOSE, BUN, CREATININE, CA) 2022-11-10 09:56:00 Milo Sinha [facility] BASIC METABOLIC PANEL (NA, K, CL, CO2, GLUCOSE, BUN, CREATININE, CA) 2022-11-09 08:47:00 Milo Sinha [facility] CBC WITH DIFF 2022-11-09 08:47:00 Milo Sinha Un [facility] MAGNESIUM 2022-11-08 09:59:[address] [facility] BASIC METABOLIC PANEL (NA, K, CL, CO2, GLUCOSE, BUN, CREATININE, CA) 2022-11-08 09:59:00 Milo Sinha [facility] CBC WITH DIFF 2022-11-08 09:59:00 Milo Sinha [facility] BASIC METABOLIC PANEL (NA, K, CL, CO2, GLUCOSE, BUN, CREATININE, CA) 2022-11-05 10:46:00 Milo Sinha [facility] CBC WITH DIFF 2022-11-05 10:46:00 Milo Sinha [facility] BASIC METABOLIC PANEL (NA, K, CL, CO2, GLUCOSE, BUN, CREATININE, CA) 2022-11-04 09:59:00 Veronica Brewer [facility] CBC WITH DIFF 2022-11-04 09:59:00 Veronica Brewer [facility] BASIC METABOLIC PANEL (NA, K, CL, CO2, GLUCOSE, BUN, CREATININE, CA) 2022-11-03 10:10:00 Veronica Brewer [facility] CBC WITH DIFF 2022-11-03 10:10:00 Veronica Brewer Thania [facility] PROCALCITONIN 2022-11-02 07:10:00 Elidia Solomon [facility] XR CHEST 1 VW 2022-11-01 21:01:33 Avi Myers [facility] LIPASE 2022-11-01 20:21:00 [facility] TROPONIN I 2022-11-01 20:21:00 Avi Myers [facility] COMP. METABOLIC PANEL ([id number]) 2022-11-01 20:21:00 Avi Myers [facility] CBC WITH DIFF 2022-11-01 20:21:00 Avi Myers [facility] N-TERMINAL PRO-BNP 2022-11-01 20:21:00 Avi Myers [facility] HB ECG ROUTINE & RHYTHM STRIP 2022-11-01 20:16:37 Avi Myers [facility] CONSENT/REFUSAL FOR DIAGNOSIS AND TREATMENT 2022-11-01 20:01:55 Doctor Unassigned, [place] [facility] INTRAVITREAL INJECTION, PHARMACOLOGIC AGENT - OS - LEFT EYE 2022-11-01 17:13:42 Abner Otero [facility] OCT, RETINA - OU - BOTH EYES 2022-11-01 17:13:23 Abner Otero [facility] DISCLOSURE AND CONSENT, MEDICAL AND SURGICAL PROCEDURES 2022-11-01 05:01:00 Doctor Unassigned, [place] [facility] OCT, RETINA - OU - BOTH EYES 2022-09-30 18:55:04 Quinn Damon [facility] INTRAVITREAL INJECTION, PHARMACOLOGIC AGENT - OS - LEFT EYE 2022-09-30 18:54:13 Quinn Damon [facility] ADV BENEFICIARY NOTICE OF NONCOVERAGE (ABN) 2022-09-30 05:01:00 Doctor Unassigned, [place] [facility] INSURANCE CORRESPONDENCE 2022-09-08 05:01:00 Doc richie Unassigned, [place] [facility] INTRAVITREAL INJECTION, PHARMACOLOGIC AGENT - OS - LEFT EYE 2022-09-02 18:51:22 Quinn Damon [facility] INSURANCE CORRESPONDENCE 2022-08-27 05:01:00 Ramiro quiroz Unassigned, [place] [facility] OCT, RETINA - OU - BOTH EYES 2022-08-26 16:07:19 Quinn Damon [facility] OU SPECTRALIS OCT MACULA, BOTH EYES 2022-07-29 00:00:00 Diana Perez [facility] ASSIGNMENT OF BENEFITS 2022-07-08 14:03:54 Docto r Unassigned, [place] [facility] OU SPECTRALIS OCT MACULA, BOTH EYES 2022-06-24 00:00:00 Diana Perez [facility] BASIC METABOLIC PANEL (NA, K, CL, CO2, GLUCOSE, BUN, CREATININE, CA) 2022-06-10 11:22:00 Devante Villa [facility] CBC WITH DIFF 2022-06-10 09:59:00 Devante Villa [facility] RAPID INFLUENZA A/B 2022-06-10 04:15:00 Allen [facility] BASIC METABOLIC PANEL (NA, K, CL, CO2, GLUCOSE, BUN, CREATININE, CA) 2022-06-10 02:29:00 Lynsey Bell [facility] CBC WITH DIFF 2022-06-10 00:39:[address] [facility] CT CHEST PULMONARY ANGIOGRAM 2022-06-09 23:15:00 Lynsey Bell [facility] D-DIMER 2022-06-09 20:43:00 Arabella [facility] HB ECG ROUTINE & RHYTHM STRIP 2022-06-09 20:39:11 Lynsey Bell [facility] TROPONIN I 2022-06-09 20:32:00 Arabella [facility] N-TERMINAL PRO-BNP 2022-06-09 20:32:00 Tono Bell [facility] XR RIBS 4+ VW RIGHT 2022-06-09 20:07:39 Troy Bell [facility] CONSENT/REFUSAL FOR DIAGNOSIS AND TREATMENT 2022-06-09 19:02:32 Doctor Unassigned, [place] [facility] CT ABDOMEN PELVIS W CONTRAST 2022-05-24 17:52:35 Lloyd Loza Rp [facility] DISCLOSURE AND CONSENT, MEDICAL AND SURGICAL PROCEDURES 2022-05-06 06:01:00 Doctor Unassigned, [place] [facility] OU SPECTRALIS OCT MACULA, BOTH EYES 2022-05-06 00:00:00 Quinn Damon [facility] TRANSTHORACIC ECHO (TTE) COMPLETE 2022-04-15 17:17:15 Elissa Campos [facility] ADV BENEFICIARY NOTICE OF NONCOVERAGE (ABN) 2022-04-08 06:01:00 Doctor Unassigned, [place] [facility] OU SPECTRALIS OCT MACULA, BOTH EYES 2022-04-08 00:00:00 Quinn Damon [facility] CT HEAD WO CONTRAST 2022-03-17 21:40:41 Elissa Campos [facility] ADV BENEFICIARY NOTICE OF NONCOVERAGE (ABN) 2022-03-11 06:01:00 Doctor Unassigned, [place] [facility] OU SPECTRALIS OCT MACULA, BOTH EYES 2022-02-25 00:00:00 Almaz Toscano [facility] MEDICAL RELEASE/CLEARANCE FORMS 2022-02-12 05:01:00 Doctor Unassigned, [place] [facility] OU SPECTRALIS OCT MACULA, BOTH EYES 2022-01-28 00:00:00 Quinn Damon [facility] Encounters Start Date/Time End Date/Time Encounter Type Admission Type [facility]ending [facility] Facility Care Department Encounter ID Source 2021-03-02 01:46:58 Outpatient MATTHEW CANCINO [facility] OPH [id number] [facility] 2021-02-28 09:03:56 Outpatient JACOB MAO [facility] [id number] [facility] 2021-02-28 04:18:18 Inpatient JACOB MAO [facility] [id number] [facility] 2021-02-27 00:04:52 Outpatient JACOB MAO [facility] [id number] [facility] 2023-10-25 00:00:00 2023-10-25 11:46:34 Patient Outreach Mita Ngo [facility] [id number] [facility] 2023-10-24 00:00:00 2023-10-25 10:25:40 Telephone Mimi Blakely [facility] [id number] [facility] 2020-03-08 00:00:00 2023-10-18 02:22:00 Mobile Device Encounter Gibran Chappell [facility] 1.2.840.114 350.1.13.10 4.2.7.2.686 [id number] 056 [id number] [facility] 2023-10-17 00:00:00 2023-10-17 00:00:[address] [facility] PRIMARY & SPECIALTY CARE 1.2.840.114 350.1.13.10 4.2.7.2.686 [id number] 365 [id number] [facility] 2023-10-12 00:00:00 2023-10-13 13:25:[address] [facility] PRIMARY & SPECIALTY CARE 1.2.840.114 350.1.13.10 4.2.7.2.686 [id number] 365 [id number] [facility] 2023-10-06 13:40:00 2023-10-06 14:00:00 [facility]medici ne [facility] 1.2.840.114 350.1.13.10 4.2.7.2.686 [id number] 365 [id number] [facility] 2023-10-06 13:40:00 2023-10-06 13:40:00 Outpatient R MP [facility] [id number] [facility] 2023-10-04 00:00:00 2023-10-04 08:15:[address] [facility] PRIMARY & SPECIALTY CARE 1.2.840.114 350.1.13.10 4.2.7.2.686 [id number] 365 [id number] [facility] 2023-10-03 00:00:00 2023-10-03 13:19:51 [facility] 1.2.840.114 350.1.13.10 4.2.7.2.686 [id number] 365 [id number] [facility] 2023-10-03 00:00:00 2023-10-03 13:09:[address] [facility] PRIMARY & SPECIALTY CARE 1.2.840.114 350.1.13.10 4.2.7.2.686 [id number] 365 [id number] [facility] 2023-09-29 00:00:00 2023-09-30 15:33:08 [facility] 1.2.840.114 350.1.13.10 4.2.7.2.686 [id number] 365 [id number] [facility] 2023-09-27 00:00:00 2023-09-27 18:45:37 [facility] 1.2.840.114 350.1.13.10 4.2.7.2.686 [id number] 365 [id number] [facility] 2023-09-16 13:00:00 2023-09-16 13:00:00 Outpatient SAMMY YOST [facility] [id number] [facility] 2023-09-15 00:00:00 2023-09-15 16:34:06 Telephone Graciela Durand [facility] PRIMARY CARE SUSIILLION 1.2.840.114 350.1.13.10 4.2.7.2.686 [id number] 296 [id number] [facility] 2023-09-08 11:23:00 2023-09-08 15:00:00 Emergency X [facility] [id number] [facility] 2023-09-08 11:23:00 2023-09-08 15:00:00 Emergency Lynsey Bell [facility] 1.2.840.114 350.1.13.10 4.2.7.2.686 [id number] [id number] [facility] 2023-09-08 00:00:00 2023-09-08 11:30:26 Telephone Lloyd Loza [facility] 1.2.840.114 350.1.13.10 4.2.7.2.686 [id number] 080 [id number] [facility] 2023-09-07 14:06:00 2023-09-07 18:25:00 Emergency X TOMAS MARTIN [facility] ERT [id number] [facility] 2023-09-07 14:06:00 2023-09-07 18:25:00 Emergency Tomas Martin [facility] 1.2.840.114 350.1.13.10 4.2.7.2.686 [id number] [id number] [facility] 2023-09-07 00:00:00 2023-09-07 12:18:09 Telephone Lloyd Loza [facility] 1.2.840.114 350.1.13.10 4.2.7.2.686 [id number] 080 [id number] [facility] 2023-09-05 00:00:00 2023-09-05 14:13:28 Telephone Graciela Durand [facility] PRIMARY CARE PAVILLION 1.2.840.114 350.1.13.10 4.2.7.2.686 [id number] 296 [id number] [facility] 2023-09-05 00:00:00 2023-09-05 11:48:11 Telephone Graciela Durand [facility] PRIMARY CARE PAVILLION 1.2.840.114 350.1.13.10 4.2.7.2.686 [id number] 296 [id number] [facility] 2023-09-02 00:00:00 2023-09-02 00:00:00 Telephone Graciela Durand [facility] PRIMARY CARE PAVILLION 1.2.840.114 350.1.13.10 4.2.7.2.686 [id number] 296 [id number] [facility] 2023-08-30 09:30:00 2023-08-30 09:30:00 Outpatient R [facility] [id number] [facility] 2023-08-19 00:00:00 2023-08-19 00:00:00 Telephone Fellow, Pulmonary [facility] 1.2840.114 350.1.13.10 4.2.7.2.686 [id number] [id number] [facility] 2023-08-15 13:00:00 2023-08-15 13:00:00 Outpatient R LLOYD LOZA [facility] [id number] [facility] 2023-08-15 00:00:00 2023-08-15 00:00:00 Telephone Lloyd Loza [facility] 1.20.114 350.1.13.10 4.2.7.2.686 [id number] 080 [id number] [facility] 2023-08-11 14:00:00 2023-08-11 14:20:00 [facility] 1.20.114 350.1.13.10 4.2.7.2.686 [id number] [facility] 2023-08-11 14:00:00 2023-08-11 14:00:00 Outpatient R MP [facility] [id number] [facility] 2023-08-08 11:15:00 2023-08-08 11:15:00 Outpatient R LLOYD LOZA [facility] [id number] [facility] 2023-08-06 00:00:00 2023-08-06 00:00:00 Refill [facility] PRIMARY & SPECIALTY CARE 1.2840.114 350.1.13.10 4.2.7.2.686 [id number] 365 [id number] [facility] 2023-08-05 10:30:00 2023-08-05 11:00:00 Office Visit Fellow, Pulmonary Delbert Taylor [facility] 1.2840.114 350.1.13.10 4.2.7.2.686 [id number] 084 [id number] [facility] 2023-08-05 10:30:00 2023-08-05 10:30:00 Outpatient R DELBERT TAYLOR [facility] [id number] [facility] 2023-08-05 00:00:00 2023-08-05 00:00:00 Letter (Out) Doctor Unassigned, [place] [facility] 1.840.114 350.1.13.10 4.2.7.2.686 [id number] 044 [id number] [facility] 2023-07-15 11:00:00 2023-07-15 12:08:32 [facility] [id number] [facility] 2023-07-15 11:00:00 2023-07-15 12:08:32 Office Visit [facility] PRIMARY & SPECIALTY CARE 1.2840.114 350.1.13.10 4.2.7.2.686 [id number] 365 [id number] [facility] 2023-07-13 00:00:00 2023-07-13 00:00:00 Refill [facility] PRIMARY & SPECIALTY CARE 1.2840.114 350.1.13.10 4.2.7.2.686 [id number] 365 [id number] [facility] 2023-07-12 00:00:00 2023-07-12 00:00:00 Telephone [facility] PRIMARY & SPECIALTY CARE 1.2840.114 350.1.13.10 4.2.7.2.686 [id number] 365 [id number] [facility] 2023-07-08 00:00:00 2023-07-08 00:00:[facility] 1.2.840.114 350.1.13.10 4.2.7.2.686 [id number] 365 [id number] [facility] 2023-06-24 00:00:00 2023-06-24 00:00:00 Refill [facility] PRIMARY & SPECIALTY CARE 1.2.840.114 350.1.13.10 4.2.7.2.686 [id number] 365 [id number] [facility] 2023-06-16 00:00:00 2023-06-16 00:00:00 [facility] 1.2.840.114 350.1.13.10 4.2.7.2.686 [id number] 365 [id number] [facility] 2023-06-14 00:00:00 2023-06-14 00:00:00 Refill [facility] PRIMARY & SPECIALTY CARE 1.2.840.114 350.1.13.10 4.2.7.2.686 [id number] 365 [id number] [facility] 2023-06-13 00:00:00 2023-06-13 00:00:00 Refill [facility] PRIMARY & SPECIALTY CARE 1.2.840.114 350.1.13.10 4.2.7.2.686 [id number] 365 [id number] [facility] 2023-06-10 11:30:00 2023-06-10 15:09:00 [facility] 1.2.840.114 350.1.13.10 4.2.7.2.686 [id number] [id number] [facility] 2023-06-10 11:00:00 2023-06-10 13:41:36 Outpatient R CIELO KONG [facility] [id number] [facility] 2023-06-10 11:00:00 2023-06-10 13:41:36 Outpatient R CIELO KONG [facility] ERT [id number] [facility] 2023-06-10 11:00:00 2023-06-10 13:41:36 Office Visit Cielo [facility] PRIMARY CARE PAVILLION 1.2.840.114 350.1.13.10 4.2.7.2.686 [id number] 086 [id number] [facility] 2023-06-09 00:00:00 2023-06-09 00:00:00 Case Management [facility] 1.2.840.114 350.1.13.10 4.2.7.2.686 [id number] 365 [id number] [facility] 2023-06-09 00:00:00 2023-06-09 00:00:00 [facility] 1.2.840.114 350.1.13.10 4.2.7.2.686 [id number] 365 [id number] [facility] 2023-06-08 00:00:00 2023-06-08 00:00:00 [facility] 1.2.840.114 350.1.13.10 4.2.7.2.686 [id number] 365 [id number] [facility] 2023-06-07 11:00:00 2023-06-07 11:30:00 Office Visit Jm Espinal [facility] 1.2840.114 350.1.13.10 4.2.7.2.686 [id number] 059 [id number] [facility] 2023-06-07 11:00:00 2023-06-07 11:00:00 Outpatient R KAROLINERoxyJM AMSHAY [facility] [id number] [facility] 2023-06-03 00:00:00 2023-06-03 00:00:00 Carlo Jm Espinal [facility] 1.2840.114 350.1.13.10 4.2.7.2.686 [id number] 059 [id number] [facility] 2023-06-02 09:35:53 2023-06-02 23:59:00 Hospital En[facility] 1.20.114 350.1.13.10 4.2.7.2.686 [id number] [facility] 2023-06-02 09:35:34 2023-06-02 23:59:00 Outpatient R MANUEL TELLEZRIQUE [facility] [id number] [facility] 2023-06-02 09:35:34 2023-06-02 23:59:00 Hospital Encounter Tellez, [facility] CLINICS 1.20.114 350.1.13.10 4.2.7.2.686 [id number] [facility] 2023-06-02 11:30:00 2023-06-02 11:34:51 Office [facility] 1.20.114 350.1.13.10 4.2.7.2.686 [id number] [facility] 2023-05-31 00:00:00 2023-05-31 00:00:00 Telephone Greg Jimenez [facility] SPECIALTY CARE [facility] 1.2840.114 350.1.13.10 4.2.7.2.686 [id number] [facility] 2023-05-31 00:00:00 2023-05-31 00:00:00 Patient Secure Msg Doctor Unassigned, [place] [facility] SPECIAL[facility] 1.2.840.114 350.1.13.10 4.2.7.2.686 [id number] [facility] 2023-05-27 10:40:00 2023-05-27 11:00:[address] Visit Ramon [facility] PRIMARY & SPECIALTY CARE 1.2840.114 350.1.13.10 4.2.7.2.686 [id number] 365 [id number] [facility] 2023-05-27 10:40:00 2023-05-27 10:40:00 Outpatient R MP [facility] [id number] [facility] 2023-05-25 00:00:00 2023-05-25 00:00:[address] [facility] PRIMARY SPECIALTY CARE 1.840.114 350.1.13.10 4.2.7.2.686 [id number] [facility] 2023-05-24 10:20:00 2023-05-24 12:10:32 Outpatient GREG CLAUDIO BARDIA [facility] [id number] [facility] 2023-05-24 10:20:00 2023-05-24 12:10:32 Office Visit Greg Jimenez [facility] PRIMARY CARE PAVILLION 1.2.840.114 350.1.13.10 4.2.7.2.686 [id number] [facility] 2023-04-18 09:30:00 2023-04-18 09:30:00 Outpatient ABNER DIXON [facility] [id number] [facility] 2023-04-03 00:00:00 2023-04-03 00:00:00 Jm Connell [facility] PRIMARY & SPECIALTY CARE 1.2.840.114 350.1.13.10 4.2.7.2.686 [id number] 059 [id number] [facility] 2023-03-30 00:00:00 2023-03-30 00:00:[address] [facility] PRIMARY & SPECIALTY CARE 1.2.840.114 350.1.13.10 4.2.7.2.686 [id number] 365 [id number] [facility] 2023-03-30 00:00:00 2023-03-30 00:00:00 Patient Secure Msg Doctor Unassigned, [place] [facility] 1.2.840.114 350.1.13.10 4.2.7.2.686 [id number] 019 [id number] [facility] 2023-03-29 00:00:00 2023-03-29 00:00:00 [facility] 1.2.840.114 350.1.13.10 4.2.7.2.686 [id number] 365 [id number] [facility] 2023-03-28 11:50:00 2023-03-28 23:59:00 Outpatient R MP [facility] [id number] [facility] 2023-03-28 11:50:00 2023-03-28 23:59:[address] [facility] PRIMARY & SPECIALTY CARE 1.2.840.114 350.1.13.10 4.2.7.2.686 [id number] [id number] [facility] 2023-03-28 11:00:00 2023-03-28 11:20:00 [facility] 1.2.840.114 350.1.13.10 4.2.7.2.686 [id number] 365 [id number] [facility] 2023-03-15 00:00:00 2023-03-15 00:00:00 Telephone [facility] 1.2840.114 350.1.13.10 4.2.7.2.686 [id number] [facility] 2023-03-07 15:40:00 2023-03-08 09:11:03 Outpatient R LLOYD LOZA [facility] [id number] [facility] 2023-03-07 15:40:00 2023-03-08 09:11:03 Office Visit Lloyd Loza [facility] 1.0.114 350.1.13.10 4.2.7.2.686 [id number] 080 [id number] [facility] 2023-03-07 10:15:00 2023-03-07 11:21:08 Imm/Inj Visit Abner Otero [facility] [employer] [facility]LD[facility]. 1.2840.114 350.1.13.10 4.2.7.2.686 [id number] [facility] 2023-03-07 00:00:00 2023-03-07 00:00:00 Orders Only Doctor Unassigned, [place] [facility] 1.2.840.114 350.1.13.10 4.2.7.2.686 [id number] [facility] 2023-03-04 10:30:00 2023-03-04 10:45:00 Purchasing Buyer Visit Pcp-Lab Lloyd Loza [facility] PRIMARY CARE PAVILLION 1.0.114 350.1.13.10 4.2.7.2.686 [id number] [facility] 2023-03-04 10:30:00 2023-03-04 10:30:00 Outpatient R LLOYD LOZA [facility] [id number] [facility] 2023-03-04 00:00:00 2023-03-04 00:00:00 Case Management Rukhsana Randolph [facility] 1.2.840.114 350.1.13.10 4.2.7.2.686 [id number] 080 [id number] [facility] 2023-02-19 00:00:00 2023-02-19 00:00:00 Elissa Henry [facility] MULTISPEC [facility] 1.2.840.114 350.1.13.10 4.2.7.2.686 [id number] [id number] [facility] 2023-02-15 07:07:00 2023-02-15 16:50:00 Outpatient R SAMUEL BREEN [facility] [id number] [facility] 2023-02-15 07:07:00 2023-02-15 16:50:00 [facility] 1.2.840.114 350.1.13.10 4.2.7.2.686 [id number] [id number] [facility] 2023-02-15 08:30:00 2023-02-15 10:30:[address] [facility] 1.2.840.114 350.1.13.10 4.2.7.2.686 [id number] [facility] 2023-02-15 00:00:00 2023-02-15 00:00:00 Orders Only Doctor Unassigned, [place] [facility] 1.2.840.114 350.1.13.10 4.2.7.2.686 [id number] [id number] [facility] 2023-02-11 11:00:00 2023-02-11 11:15:00 Purchasing Buyer Visit Pcp-Lab Samuel Breen [facility] PRIMARY CARE PAVILLION 1.2.840.114 350.1.13.10 4.2.7.2.686 [id number] [facility] 2023-02-11 11:00:00 2023-02-11 11:00:00 Outpatient R SAMUEL BREEN [facility] [id number] [facility] 2023-02-11 08:00:00 2023-02-11 08:30:00 Office Visit Fellow, Delbert Frias [facility] 1.2.840.114 350.1.13.10 4.2.7.2.686 [id number] 084 [id number] [facility] 2023-02-10 00:00:00 2023-02-10 00:00:00 Patient Secure Msg Doctor Unassigned, [place] [facility] 1.2.840.114 350.1.13.10 4.2.7.2.686 [id number] 037 [id number] [facility] 2023-02-04 00:00:00 2023-02-04 00:00:[address] [facility] 1.2840.114 350.1.13.10 4.2.7.2.686 [id number] [id number] [facility] 2023-02-01 00:00:00 2023-02-01 00:00:[address] [facility] 1.2.840.114 350.1.13.10 4.2.7.2.686 [id number] [id number] [facility] 2023-01-31 14:00:00 2023-01-31 14:11:40 Outpatient R MICHAEL NUNEZ [facility] [id number] [facility] 2023-01-31 14:00:00 2023-01-31 14:11:40 Office Visit Michael Nunez [facility] 1.2840.114 350.1.13.10 4.2.7.2.686 [id number] 059 [id number] [facility] 2023-01-31 00:00:00 2023-01-31 00:00:00 Telephone Carmen Mesa [facility] NAL BUILDING 1.2.840.114 350.1.13.10 4.2.7.2.686 [id number] [facility] 2023-01-28 00:00:00 2023-01-28 00:00:00 Telephone Kylie shay [facility] 1.2.840.114 350.1.13.10 4.2.7.2.686 [id number] 059 [id number] [facility] 2023-01-28 00:00:00 2023-01-28 00:00:00 Telephone Jm Espinal [facility] 1.2.840.114 350.1.13.10 4.2.7.2.686 [id number] 059 [id number] [facility] 2023-01-28 00:00:00 2023-01-28 00:00:00 [facility] 1.2.840.114 350.1.13.10 4.2.7.2.686 [id number] 084 [id number] [facility] 2023-01-25 10:46:43 2023-01-25 23:59:00 Outpatient JM YOST [facility] [id number] [facility] 2023-01-25 10:46:43 2023-01-25 23:59:00 Hospital Encounter Jm Espinal [facility] 1.2.840.114 350.1.13.10 4.2.7.2.686 [id number] [facility] 2023-01-24 10:30:00 2023-01-24 12:51:30 Outpatient ABNER DIXON [facility] [id number] [facility] 2023-01-24 10:30:00 2023-01-24 12:51:30 Imm/Inj Visit Abner Otero [facility] Y [employer] [facility]. 1.114 350.1.13.10 4.2.7.2.686 [id number] [facility] 2023-01-24 00:00:00 2023-01-24 00:00:00 Orders Only Doctor Unassigned, [place] [facility] 1.114 350.1.13.10 4.2.7.2.686 [id number] [facility] 2023-01-21 10:40:00 2023-01-21 11:00:00 Office Visit Cielo Kong [facility] PRIMARY CARE PAVILLION 1.114 350.1.13.10 4.2.7.2.686 [id number] [id number] [facility] 2023-01-21 10:40:00 2023-01-21 10:40:00 Outpatient CIELO VELOZ [facility] [id number] [facility] 2023-01-18 00:00:00 2023-01-18 00:00:00 Telephone [facility] 1.114 350.1.13.10 4.2.7.2.686 [id number] [facility] 2023-01-17 11:20:00 2023-01-17 11:20:00 Outpatient LLOYD FRAZIER [facility] [id number] [facility] 2023-01-14 09:30:00 2023-01-14 09:30:00 Outpatient LLOYD FRAZIER [facility] [id number] [facility] 2023-01-14 00:00:00 2023-01-14 00:00:00 Telephone Jm Espinal [facility] 1.114 350.1.13.10 4.2.7.2.686 [id number] 059 [id number] [facility] 2023-01-13 00:00:00 2023-01-13 00:00:00 Helen Tabor [facility] MULTISPEC [facility]ALTY [facility]ENTER AND [facility] 1.840.114 350.1.13.10 4.2.7.2.686 [id number] 086 [id number] [facility] 2023-01-13 00:00:00 2023-01-13 00:00:00 Telephone Jm Espinal [facility] 1.0.114 350.1.13.10 4.2.7.2.686 [id number] 059 [id number] [facility] 2023-01-11 13:00:00 2023-01-11 13:30:00 Office Visit Kylie [facility] 1..114 350.1.13.10 4.2.7.2.686 [id number] 059 [id number] [facility] 2023-01-11 13:00:00 2023-01-11 13:00:00 Outpatient R JM ESPINAL [facility] [id number] [facility] 2023-01-05 00:00:00 2023-01-05 00:00:00 Telephone Graciela Durand [facility] PRIMARY CARE PAVILLION 1..114 350.1.13.10 4.2.7.2.686 [id number] [facility] 2023-01-05 00:00:00 2023-01-05 00:00:00 Telephone Lloyd Loza [facility] 1..114 350.1.13.10 4.2.7.2.686 [id number] [id number] [facility] 2023-01-05 00:00:00 2023-01-05 00:00:00 Telephone Delbert Taylor [facility] 1.2.840.114 350.1.13.10 4.2.7.2.686 [id number] 084 [id number] [facility] 2023-01-04 11:00:00 2023-01-04 12:00:00 Purchasing Buyer Visit Testing, [facility] Pulmonary Function Delbert Taylor [facility] 1.2.840.114 350.1.13.10 4.2.7.2.686 [id number] [id number] [facility] 2023-01-04 11:00:00 2023-01-04 11:00:00 Outpatient R DELBERT TAYLOR [facility] [id number] [facility] 2023-01-04 00:00:00 2023-01-04 00:00:00 Orders Only Doctor Unassigned, [place] [facility] 1.2.840.114 350.1.13.10 4.2.7.2.686 [id number] [facility] 2023-01-04 00:00:00 2023-01-04 00:00:00 Telephone Delbert Taylor [facility] MEDICAL OFFICE BUILDING 1.2.840.114 350.1.13.10 4.2.7.2.686 [id number] [id number] [facility] 2022-12-30 00:00:00 2022-12-30 00:00:00 Telephone Delbert Taylor [facility] MEDICAL OFFICE BUILDING 1.2.840.114 350.1.13.10 4.2.7.2.686 [id number] [id number] [facility] 2022-12-29 00:00:00 2022-12-29 00:00:00 Telephone Brandon [facility] MEDICAL OFFICE BUILDING 1.2.840.114 350.1.13.10 4.2.7.2.686 [id number] [facility] 2022-12-28 11:00:00 2022-12-28 11:00:00 Outpatient R [facility] [id number] [facility] 2022-12-22 11:00:00 2022-12-22 11:20:00 [facility] 1..840.114 350.1.13.10 4.2.7.2.686 [id number] [facility] 2022-12-22 11:00:00 2022-12-22 11:00:00 Outpatient R [facility] [id number] [facility] 2022-12-22 00:00:00 2022-12-22 00:00:00 Orders Only Doctor Unassigned, [place] [facility] 1.840.114 350.1.13.10 4.2.7.2.686 [id number] [facility] 2022-12-17 00:00:00 2022-12-17 00:00:00 Telephone Brandon Delbert [facility] MEDICAL OFFICE BUILDING 1..840.114 350.1.13.10 4.2.7.2.686 [id number] [id number] [facility] 2022-12-16 10:15:00 2022-12-16 12:43:28 Outpatient R ABNER OTERO [facility] [id number] [facility] 2022-12-16 10:15:00 2022-12-16 12:43:28 Imm/Inj Visit Abner Otero [facility] 1..840.114 350.1.13.10 4.2.7.2.686 [id number] [facility] 2022-12-15 15:00:00 2022-12-15 15:30:00 Office Visit Delbert Taylor [facility] MEDICAL OFFICE BUILDING 1.840.114 350.1.13.10 4.2.7.2.686 [id number] [id number] [facility] 2022-12-15 15:00:00 2022-12-15 15:00:00 Outpatient R DELBERT TAYLOR [facility] [id number] [facility] 2022-12-15 00:00:00 2022-12-15 00:00:00 Telephone Delbert Taylor [facility] MEDICAL OFFICE BUILDING 1.2840.114 350.1.13.10 4.2.7.2.686 [id number] [id number] [facility] 2022-12-13 00:00:00 2022-12-13 00:00:00 Orders Only Doctor Unassigned, [place] [facility] 1.2840.114 350.1.13.10 4.2.7.2.686 [id number] [facility] 2022-11-29 00:00:00 2022-11-29 00:00:00 Patient Secure Msg Doctor Unassigned, [place] [facility] 1.2840.114 350.1.13.10 4.2.7.2.686 [id number] [facility] 2022-11-26 10:00:00 2022-11-26 10:00:00 Outpatient R LLOYD LOZA [facility] [id number] [facility] 2022-11-25 00:00:00 2022-11-25 00:00:00 Patient Outreach Mita Ngo [facility]MER[facility] [facility] 1.2840.114 350.1.13.10 4.2.7.2.686 [id number] [facility] 2022-11-23 00:00:00 2022-11-23 00:00:00 Patient Secure Msg Mimi Blakely [facility] 1.2840.114 350.1.13.10 4.2.7.2.686 [id number] [facility] 2022-11-22 10:30:00 2022-11-22 10:30:00 Outpatient R [facility] [id number] [facility] 2022-11-16 00:00:00 2022-11-16 00:00:00 Transition of Care Camelia Dorman LEXIEShae [facility] 1.0.114 350.1.13.10 4.2.7.2.686 [id number] [facility] 2022-11-01 15:10:00 2022-11-15 16:09:00 Hospital Encounter Laith Benito David [facility] 1..114 350.1.13.10 4.2.7.2.686 [id number] [id number] [facility] 2022-11-11 00:00:00 2022-11-11 00:00:00 Outpatient RUKHSANA KRAMER [facility] [id number] [facility] 2022-11-01 10:30:00 2022-11-01 12:24:17 Imm/Inj Visit Abner Otero [facility] Y [employer] BANK BLDG. .84.114 350.1.13.10 4.2.7.2.686 [id number] [facility] 2022-11-01 10:30:00 2022-11-01 12:24:17 Outpatient ABNER DIXON [facility] [id number] [facility] 2022-11-01 10:30:00 2022-11-01 10:30:00 Outpatient ABNER DIXON [facility] [id number] [facility] 2022-11-01 00:00:00 2022-11-01 00:00:00 Orders Only Doctor Unassigned, [place] [facility] 1.114 350.1.13.10 4.2.7.2.686 [id number] [facility] 2022-10-29 11:00:00 2022-10-29 11:00:00 Outpatient R [facility] [id number] [facility] 2022-10-27 14:00:00 2022-10-27 14:00:00 Outpatient R JM ESPINAL AMER [facility] [id number] [facility] 2022-10-19 14:30:00 2022-10-19 15:39:28 Outpatient R ARIANNE CHAPPELL [facility] [id number] [facility] 2022-10-19 14:30:00 2022-10-19 15:39:28 [facility] 1.0.114 350.1.13.10 4.2.7.2.686 [id number] [id number] [facility] 2022-10-19 00:00:00 2022-10-19 00:00:00 Case Management [facility]my Tri[facility] 1..114 350.1.13.10 4.2.7.2.686 [id number] [id number] [facility] 2022-10-18 00:00:00 2022-10-18 00:00:00 Telephone Lloyd Loza Rp [facility] 1.0.114 350.1.13.10 4.2.7.2.686 [id number] [facility] 2022-10-15 00:00:00 2022-10-15 00:00:00 Telephone [facility] 1..114 350.1.13.10 4.2.7.2.686 [id number] 085 [id number] [facility] 2022-10-08 00:00:00 2022-10-08 00:00:00 Patient Secure Msg Sammy Tripp [facility] 1..114 350.1.13.10 4.2.7.2.686 [id number] [id number] [facility] 2022-10-07 00:00:00 2022-10-07 00:00:00 Telephone [facility] 1.0.114 350.1.13.10 4.2.7.2.686 [id number] [facility] 2022-10-01 00:00:00 2022-10-01 00:00:00 Patient Secure g Mimi Blakely [facility] 1..114 350.1.13.10 4.2.7.2.686 [id number] [facility] 2022-09-30 13:15:00 2022-09-30 13:55:00 Outpatient R QUINN DAMON [facility] [id number] [facility] 2022-09-30 13:15:00 2022-09-30 13:55:00 Imm/Inj Visit Quinn Dam[facility] 1..114 350.1.13.10 4.2.7.2.686 [id number] [facility] 2022-09-30 11:20:00 2022-09-30 12:06:53 Office Visit Roxana Iqbal [facility] 1.114 350.1.13.10 4.2.7.2.686 [id number] [id number] [facility] 2022-09-30 00:00:00 2022-09-30 00:00:00 Orders Only Doctor Unassigned, [place] [facility] 1.2.840.114 350.1.13.10 4.2.7.2.686 [id number] [facility] 2022-09-23 00:00:00 2022-09-23 00:00:00 Telephone Jm Espinal [facility] OFFICE BUILDING 1.2840.114 350.1.13.10 4.2.7.2.686 [id number] [facility] 2022-09-20 00:00:00 2022-09-20 00:00:00 Patient Secure Msg Doctor Unassigned, [place] [facility] 1.2840.114 350.1.13.10 4.2.7.2.686 [id number] 059 [id number] [facility] 2022-09-14 13:00:00 2022-09-14 13:00:00 Outpatient SONYA ROBERTO [facility] [id number] [facility] 2022-09-14 11:00:00 2022-09-14 11:00:00 Outpatient SONYA ROBERTO [facility] [id number] [facility] 2022-09-10 00:00:00 2022-09-10 00:00:00 Patient Secure Msg Milo Juarez [facility] 1.2840.114 350.1.13.10 4.2.7.2.686 [id number] [id number] [facility] 2022-09-08 00:00:00 2022-09-08 00:00:00 Orders Only Doctor Unassigned, [place] [facility] 1.2840.114 350.1.13.10 4.2.7.2.686 [id number] [facility] 2022-09-07 00:00:00 2022-09-07 00:00:00 Telephone [facility] 1.2840.114 350.1.13.10 4.2.7.2.686 [id number] [facility] 2022-09-02 13:15:00 2022-09-02 13:53:49 Outpatient R QUINN DAMON [facility] [id number] [facility] 2022-09-02 13:15:00 2022-09-02 13:30:00 Imm/Inj Visit Quinn Damon [facility] 1.2840.114 350.1.13.10 4.2.7.2.686 [id number] [facility] 2022-08-31 00:00:00 2022-08-31 00:00:00 Patient Secure Msg Lloyd Loza [facility] BUILDING 1.2.840.114 350.1.13.10 4.2.7.2.686 [id number] 080 [id number] [facility] 2022-08-30 11:30:00 2022-08-30 16:29:42 Outpatient R LLOYD LOZA [facility] [id number] [facility] 2022-08-30 11:30:00 2022-08-30 16:29:42 Office Visit Lloyd Loza [facility] BUILDING 1.2.840.114 350.1.13.10 4.2.7.2.686 [id number] [id number] [facility] 2022-08-30 00:00:00 2022-08-30 00:00:00 Jm Connell [facility] 1.2840.114 350.1.13.10 4.2.7.2.686 [id number] [id number] [facility] 2022-08-27 00:00:00 2022-08-27 00:00:00 Orders Only Doctor Unassigned, [place] [facility] 1.2840.114 350.1.13.10 4.2.7.2.686 [id number] [facility] 2022-08-26 13:00:00 2022-08-26 13:15:00 Purchasing Buyer Visit Pcp-Lab Nikhil Juarez [facility]AV[facility] 1.2840.114 350.1.13.10 4.2.7.2.686 [id number] [facility] 2022-08-26 13:00:00 2022-08-26 13:00:00 Outpatient NIKHIL MOROCHO [facility] [id number] [facility] 2022-08-26 09:45:00 2022-08-26 10:00:00 Office Visit Quinn Damon [facility] 1.840.114 350.1.13.10 4.2.7.2.686 [id number] [facility] 2022-08-26 00:00:00 2022-08-26 00:00:00 Jm Connell [facility] 1.0.114 350.1.13.10 4.2.7.2.686 [id number] [facility] 2022-08-12 11:00:00 2022-08-12 11:26:11 Outpatient CIELO VELOZ [facility] [id number] [facility] 2022-08-12 11:00:00 2022-08-12 11:26:11 Office Visit Milo Juarez Vijaya Laxmi [facility] 1.2840.114 350.1.13.10 4.2.7.2.686 [id number] [id number] [facility] 2022-08-06 00:00:00 2022-08-06 00:00:00 Jm Connell [facility] 1.2840.114 350.1.13.10 4.2.7.2.686 [id number] 059 [id number] [facility] 2022-07-29 09:45:00 2022-07-29 10:00:00 Office Visit [facility] 1.114 350.1.13.10 4.2.7.2.686 [id number] [facility] 2022-07-29 09:45:00 2022-07-29 09:45:00 Outpatient R QUINN DAMON [facility] [id number] [facility] 2022-07-26 00:00:00 2022-07-26 00:00:00 Patient Secure Sammy Francisco [facility]AY [facility] 1.114 350.1.13.10 4.2.7.2.686 [id number] 085 [id number] [facility] 2022-07-19 00:00:00 2022-07-19 00:00:00 Case Management Sammy Tripp [facility] 1.114 350.1.13.10 4.2.7.2.686 [id number] [id number] [facility] 2022-07-08 08:30:00 2022-07-08 09:21:08 Outpatient SAMMY YOST [facility] [id number] [facility] 2022-07-08 08:30:00 2022-07-08 09:21:08 Office Visit Sammy Tripp [facility] 1.114 350.1.13.10 4.2.7.2.686 [id number] 085 [id number] [facility] 2022-07-08 00:00:00 2022-07-08 00:00:00 Orders Only Doctor Unassigned, [place] [facility] 1.2.840.114 350.1.13.10 4.2.7.2.686 [id number] [id number] [facility] 2022-07-07 00:00:00 2022-07-07 00:00:00 JadonJm Pinon [facility] 1.2.840.114 350.1.13.10 4.2.7.2.686 [id number] 059 [id number] [facility] 2022-07-04 00:00:00 2022-07-04 00:00:00 Refill Nikhil Juarez [facility] 1.2.840.114 350.1.13.10 4.2.7.2.686 [id number] 086 [id number] [facility] 2022-07-02 00:00:00 2022-07-02 00:00:00 [facility] 1.2840.114 350.1.13.10 4.2.7.2.686 [id number] [facility] 2022-06-24 13:45:00 2022-06-24 14:39:02 Outpatient R QUINN DAMON [facility] [id number] [facility] 2022-06-24 13:45:00 2022-06-24 14:00:00 Office Visit [facility] 1.2.840.114 350.1.13.10 4.2.7.2.686 [id number] [facility] 2022-06-24 10:40:00 2022-06-24 11:00:[address] [facility] CARE 1.2.840.114 350.1.13.10 4.2.7.2.686 [id number] [facility] 2022-06-23 00:00:00 2022-06-23 00:00:00 Telephone Elissa Campos [facility] 1.2.840.114 350.1.13.10 4.2.7.2.686 [id number] 085 [id number] [facility] 2022-06-23 00:00:00 2022-06-23 00:00:00 Telephone Nikhil Juarez [facility] 1.2.840.114 350.1.13.10 4.2.7.2.686 [id number] 047 [id number] [facility] 2022-06-19 00:00:00 2022-06-19 00:00:00 Nazario Robledo [facility] 1.2.840.114 350.1.13.10 4.2.7.2.686 [id number] 059 [id number] [facility] 2022-06-17 00:00:00 2022-06-17 00:00:00 Telephone Elissa Campos [facility] 1.2.840.114 350.1.13.10 4.2.7.2.686 [id number] 085 [id number] [facility] 2022-06-17 00:00:00 2022-06-17 00:00:00 Telephone Milo Juarez [facility] 1.2.840.114 350.1.13.10 4.2.7.2.686 [id number] 086 [id number] [facility] 2022-06-14 00:00:00 2022-06-14 00:00:00 Transition of Care Agatha Rodriges 1.2.840.114 350.1.13.10 4.2.7.2.686 [id number] [facility] 2022-06-12 00:00:00 2022-06-12 00:00:00 RefGeetha Roman [facility] 1.2.840.114 350.1.13.10 4.2.7.2.686 [id number] 086 [id number] [facility] 2022-06-12 00:00:00 2022-06-12 00:00:00 Refill Elissa Campos [facility] 1.2.840.114 350.1.13.10 4.2.7.2.686 [id number] 084 [id number] [facility] 2022-06-12 00:00:00 2022-06-12 00:00:00 Refill Jm Espinal [facility] 1.2.840.114 350.1.13.10 4.2.7.2.686 [id number] 059 [id number] [facility] 2022-06-09 13:17:00 2022-06-11 14:02:00 Inpatient X TAMMI FARHAT [facility] [id number] [facility] 2022-06-09 13:17:00 2022-06-11 14:02:00 Hospital Encounter Lynsey Bell, Farhat Matias [facility] 1.2.840.114 350.1.13.10 4.2.7.2.686 [id number] [id number] [facility] 2022-06-11 00:00:00 2022-06-11 00:00:00 Patient Secure Angel Juarezel [facility] 1.2.840.114 350.1.13.10 4.2.7.2.686 [id number] 086 [id number] [facility] 2022-06-03 10:28:29 2022-06-03 23:59:00 Outpatient R JOE TELLEZ [facility] [id number] [facility] 2022-06-03 11:30:00 2022-06-03 12:24:42 Office Visit Joe Tellez [facility] 1.2840.114 350.1.13.10 4.2.7.2.686 [id number] [facility] 2022-06-03 09:45:00 2022-06-03 09:45:00 Outpatient R QUINN DAMON [facility] [id number] [facility] 2022-06-02 00:00:00 2022-06-02 00:00:00 Pre Visit Outreach Stacia Gonzalez [facility] 1.2840.114 350.1.13.10 4.2.7.2.686 [id number] [id number] [facility] 2022-06-01 00:00:00 2022-06-01 00:00:00 Telephone Quinn Damon [facility] 1.2840.114 350.1.13.10 4.2.7.2.686 [id number] [facility] 2022-06-01 00:00:00 2022-06-01 00:00:00 Telephone Elissa Campos [facility] 1.2840.114 350.1.13.10 4.2.7.2.686 [id number] 084 [id number] [facility] 2022-05-31 11:00:00 2022-05-31 12:38:31 Outpatient R LLOYD LOZA [facility] [id number] [facility] 2022-05-31 11:00:00 2022-05-31 12:38:31 Office Visit Lloyd Loza Rp [facility] 1.2840.114 350.1.13.10 4.2.7.2.686 [id number] [id number] [facility] 2022-05-25 14:00:00 2022-05-25 14:23:01 Outpatient NICOLE ELIZABETH [facility] [id number] [facility] 2022-05-25 14:00:00 2022-05-25 14:23:01 Office Visit Nicole Dawson [facility] 1.2.840.114 350.1.13.10 4.2.7.2.686 [id number] [id number] [facility] 2022-05-25 00:00:00 2022-05-25 00:00:00 Telephone Quinn Damon [facility]PEC [facility] 1.2.840.114 350.1.13.10 4.2.7.2.686 [id number] [facility] 2022-05-24 10:12:20 2022-05-24 23:59:00 Hospital Encounter Lloyd Loza [facility] 1.2.840.114 350.1.13.10 4.2.7.2.686 [id number] [facility] 2022-05-24 10:11:31 2022-05-24 10:11:31 Outpatient R LLOYD LOZA [facility] [id number] [facility] 2022-05-24 10:11:31 2022-05-24 10:11:31 Hospital Encounter Lloyd Loza [facility] 1.2.840.114 350.1.13.10 4.2.7.2.686 [id number] [facility] 2022-05-24 00:00:00 2022-05-24 00:00:00 Telephone Elissa Campos [facility] 1.2.840.114 350.1.13.10 4.2.7.2.686 [id number] [id number] [facility] 2022-05-19 11:00:00 2022-05-19 11:00:00 Outpatient R ELISSA CAMPOS [facility] [id number] [facility] 2022-05-12 00:00:00 2022-05-12 00:00:00 Patient Secure mallorie GeraldoclarissacuateElissa [facility] 1..114 350.1.13.10 4.2.7.2.686 [id number] 084 [id number] [facility] 2022-05-06 10:30:00 2022-05-06 10:45:00 Imm/Inj Visit Quinn Damon [facility]ULT[facility]PEC [facility] 1..114 350.1.13.10 4.2.7.2.686 [id number] [facility] 2022-05-06 10:30:00 2022-05-06 10:30:00 Outpatient R QUINN DAMON [facility] [id number] [facility] 2022-05-06 00:00:00 2022-05-06 00:00:00 Orders Only Doctor Unassigned, [place] [facility] 1..114 350.1.13.10 4.2.7.2.686 [id number] [facility] 2022-05-06 00:00:00 2022-05-06 00:00:00 [facility]il [facility]une[facility] 1.114 350.1.13.10 4.2.7.2.686 [id number] 086 [id number] [facility] 2022-04-28 14:00:00 2022-04-28 14:44:20 Outpatient R JM ESPINAL AMER [facility] [id number] [facility] 2022-04-28 14:00:00 2022-04-28 14:44:20 Office Visit Jm Espinal [facility] 1..114 350.1.13.10 4.2.7.2.686 [id number] 059 [id number] [facility] 2022-04-16 00:00:00 2022-04-16 00:00:00 [facility] 1.2840.114 350.1.13.10 4.2.7.2.686 [id number] [id number] [facility] 2022-04-15 10:37:21 2022-04-15 23:59:00 Outpatient R ASHER ELISSA [facility] [id number] [facility] 2022-04-15 10:37:21 2022-04-15 23:59:00 [facility] 1.840.114 350.1.13.10 4.2.7.2.686 [id number] [facility] 2022-04-15 10:00:00 2022-04-15 10:30:03 Office Visit Joe Tellez [facility] 1..840.114 350.1.13.10 4.2.7.2.686 [id number] [facility] 2022-04-12 10:45:00 2022-04-12 10:45:00 Outpatient MARCY MONTANEZ [facility] [id number] [facility] 2022-04-08 10:45:00 2022-04-08 11:00:00 Imm/Inj Visit Quinn Damon [facility] 1..840.114 350.1.13.10 4.2.7.2.686 [id number] [facility] 2022-04-08 10:45:00 2022-04-08 10:45:00 Outpatient QUINN BHATTI [facility] [id number] [facility] 2022-04-08 09:30:00 2022-04-08 09:30:00 Outpatient QUINN BHATTI [facility] [id number] [facility] 2022-04-08 00:00:00 2022-04-08 00:00:00 Orders Only Doctor Unassigned, [place] [facility] 1.2.840.114 350.1.13.10 4.2.7.2.686 [id number] [facility] 2022-03-22 00:00:00 2022-03-22 00:00:00 Refill Sonia Nazario A [facility] 1.2840.114 350.1.13.10 4.2.7.2.686 [id number] 059 [id number] [facility] 2022-03-21 00:00:00 2022-03-21 00:00:00 Refill Sonia Nazario [facility] BUILDING 1.2840.114 350.1.13.10 4.2.7.2.686 [id number] [id number] [facility] 2022-03-19 00:00:00 2022-03-19 00:00:00 Patient [facility] 1.2840.114 350.1.13.10 4.2.7.2.686 [id number] 084 [id number] [facility] 2022-03-18 00:00:00 2022-03-18 00:00:00 RefJm Pinon [facility] 1.2840.114 350.1.13.10 4.2.7.2.686 [id number] 059 [id number] [facility] 2022-03-17 14:56:58 2022-03-17 23:59:00 Hospital Encounter [facility] 1.2.840.114 350.1.13.10 4.2.7.2.686 [id number] [facility] 2022-03-17 10:00:00 2022-03-17 11:31:12 Outpatient R ELISSA CAMPOS [facility] [id number] [facility] 2022-03-17 10:00:00 2022-03-17 11:31:12 Office Visit GeraldoElissa theodore [facility] 1.2.840.114 350.1.13.10 4.2.7.2.686 [id number] [id number] [facility] 2022-03-11 14:00:00 2022-03-11 14:15:00 Imm/Inj Visit Quinn Damon [facility] 1.2.114 350.1.13.10 4.2.7.2.686 [id number] [facility] 2022-03-11 14:00:00 2022-03-11 14:00:00 Outpatient R QUINN DAMON [facility] [id number] [facility] 2022-03-11 00:00:00 2022-03-11 00:00:00 Orders Only Doctor Unassigned, [place] [facility] 1.2.114 350.1.13.10 4.2.7.2.686 [id number] [facility] 2022-03-04 11:45:00 2022-03-04 12:00:00 Purchasing Buyer Visit Pcp-Lab Nikhil Juarez [facility] 1.2.114 350.1.13.10 4.2.7.2.686 [id number] [facility] 2022-03-04 11:00:00 2022-03-04 11:11:59 Outpatient R NIKHIL JUAREZ [facility] [id number] [facility] 2022-03-04 11:00:00 2022-03-04 11:11:59 Office Visit Milo Juarez Emilio B [facility] 1.2.114 350.1.13.10 4.2.7.2.686 [id number] [facility] 2022-02-26 00:00:00 2022-02-26 00:00:00 Refill [facility] 1.2.840.114 350.1.13.10 4.2.7.2.686 [id number] [id number] [facility] 2022-02-26 00:00:00 2022-02-26 00:00:00 [facility] 1.2.840.114 350.1.13.10 4.2.7.2.686 [id number] [id number] [facility] 2022-02-26 00:00:00 2022-02-26 00:00:00 [facility] 1.2.840.114 350.1.13.10 4.2.7.2.686 [id number] [facility] 2022-02-25 13:30:00 2022-02-25 13:45:00 Office Visit Quinn Damon [email or web address] 1.2.840.114 350.1.13.10 4.2.7.2.686 [id number] [facility] 2022-02-25 13:30:00 2022-02-25 13:30:00 Outpatient R QUINN DAMON [facility] [id number] [facility] 2022-02-21 00:00:00 2022-02-21 00:00:00 Refill [facility] 1.2.840.114 350.1.13.10 4.2.7.2.686 [id number] [id number] [facility] 2022-02-19 11:00:00 2022-02-19 13:43:45 Outpatient R LLOYD LOZA [facility] [id number] [facility] 2022-02-19 11:00:00 2022-02-19 13:43:45 Telemedici ne Visit Lloyd Loza [facility] 1.2.840.114 350.1.13.10 4.2.7.2.686 [id number] [facility] 2022-02-12 00:00:00 2022-02-12 00:00:00 Telephone Jm Espinal [facility] 1.2.840.114 350.1.13.10 4.2.7.2.686 [id number] [facility] 2022-02-12 00:00:00 2022-02-12 00:00:00 Orders Only Doctor Unassigned, [place] [facility] 1.2.840.114 350.1.13.10 4.2.7.2.686 [id number] [facility] 2022-02-07 00:00:00 2022-02-07 00:00:00 Refill Jm Espinal [facility] 1.2.840.114 350.1.13.10 4.2.7.2.686 [id number] [facility] 2022-01-28 13:45:00 2022-01-28 14:00:00 Office Visit Quinn Damon [facility] 1.2.840.114 350.1.13.10 4.2.7.2.686 [id number] [facility] 2022-01-28 13:45:00 2022-01-28 13:45:00 Outpatient R QUINN DAMON [facility] [id number] [facility] 2022-01-28 13:45:00 2022-01-28 13:45:00 Outpatient R QUINN DAMON [facility] [id number] [facility] 2022-01-26 00:00:00 2022-01-26 00:00:00 Patient Secure Msg Doctor Unassigned, [place] JASON SEXTON 1.2840.114 350.1.13.10 4.2.7.2.686 [id number] [facility] 2022-01-21 00:00:00 2022-01-21 00:00:00 Refill Jm Espinal [facility] 1.0.114 350.1.13.10 4.2.7.2.686 [id number] [facility] 2022-01-15 00:00:00 2022-01-15 00:00:00 [facility] 1.0.114 350.1.13.10 4.2.7.2.686 [id number] [facility] 2022-01-12 00:00:00 2022-01-12 00:00:00 Refill Elissa Campos [facility] 1.0.114 350.1.13.10 4.2.7.2.686 [id number] [facility] 2022-01-11 10:25:10 2022-01-11 23:59:00 Outpatient R LLOYD LOZA [facility] [id number] [facility] 2022-01-11 10:25:10 2022-01-11 23:59:00 Hospital Encounter Lloyd Loza [facility] 1..114 350.1.13.10 4.2.7.2.686 [id number] [facility] 2022-01-08 00:00:00 2022-01-08 00:00:00 Patient Secure Msg Doctor Unassigned, [place] [facility] 1.84.114 350.1.13.10 4.2.7.2.686 [id number] [facility] 2022-01-05 14:00:00 2022-01-05 14:30:00 [facility]114 350.1.13.10 4.2.7.2.686 [id number] [facility] 2022-01-05 14:00:00 2022-01-05 14:00:00 Outpatient R DANIEL [facility] [id number] [facility] 2022-01-05 14:00:00 2022-01-05 14:00:00 Outpatient R DANIEL [facility] [id number] [facility] 2021-12-31 13:00:00 2021-12-31 13:15:00 Office Visit Quinn Damon [facility] MULTISPEC [facility] 1.84.114 350.1.13.10 4.2.7.2.686 [id number] [facility] 2021-12-31 13:00:00 2021-12-31 13:00:00 Outpatient R QUINN DAMON [facility] [id number] [facility] 2021-12-31 13:00:00 2021-12-31 13:00:00 Outpatient R QUINN DAMON [facility] [id number] [facility] 2021-12-11 10:20:00 2021-12-11 10:20:00 Outpatient R LLOYD LOZA [facility] [id number] [facility] 2021-12-11 10:20:00 2021-12-11 10:20:00 Office Visit Lloyd Loza [facility] 1.840.114 350.1.13.10 4.2.7.2.686 [id number] [facility] 2021-12-11 10:20:00 2021-12-11 10:18:59 Outpatient R ELO LOZALidia [facility] [id number] [facility] 2021-12-06 00:00:00 2021-12-06 00:00:00 Refill Kylie [facility] MEDICAL OFFICE BUILDING 1.2.840.114 350.1.13.10 4.2.7.2.686 [id number] [facility] 2021-12-06 00:00:00 2021-12-06 00:00:00 [facility] 1.2.840.114 350.1.13.10 4.2.7.2.686 [id number] [facility] 2021-12-03 13:00:00 2021-12-03 13:36:22 Outpatient R SERGOMARK JM [facility] [id number] [facility] 2021-12-03 13:00:00 2021-12-03 13:36:22 Office [facility] 1.2.840.114 350.1.13.10 4.2.7.2.686 [id number] [facility] 2021-12-03 13:00:00 2021-12-03 13:36:22 Outpatient R LUIS ENRIQUE ESPINALSHAY ESPINALLUIS [facility] [id number] [facility] 2021-12-01 10:14:48 2021-12-01 23:59:00 Hospital Encounter Linda hCappell [facility] 1.2.840.114 350.1.13.10 4.2.7.2.686 [id number] [facility] 2021-12-01 10:14:10 2021-12-01 10:13:00 Outpatient R LINDA CHAPPELL [facility] [id number] [facility] 2021-12-01 10:00:00 2021-12-01 10:13:00 Hospital Encounter Linda Chappell [facility] 1..114 350.1.13.10 4.2.7.2.686 [id number] [facility] 2021-11-30 00:00:00 2021-11-30 00:00:00 Elissa Henry [facility] MULTISPEC [facility]TY [facility] 1.114 350.1.13.10 4.2.7.2.686 [id number] [facility] 2021-11-26 13:15:00 2021-11-26 13:30:00 Imm/Inj Visit Quinn Damon [email or web address] MULTISPEC IALTY [facility] 1.114 350.1.13.10 4.2.7.2.686 [id number] [facility] 2021-11-26 13:15:00 2021-11-26 13:15:00 Outpatient R QUINN DAMON [facility] [id number] [facility] 2021-11-26 13:15:00 2021-11-26 13:15:00 Outpatient R QUINN DAMON [facility] [id number] [facility] 2021-11-23 11:13:00 2021-11-23 14:40:00 Outpatient R NICOLE DAWSON [facility] GIE [id number] [facility] 2021-11-23 11:13:00 2021-11-23 14:40:00 Hospital Encounter Nicole Dawson [facility] ICAL SCIENCES [facility] 1..114 350.1.13.10 4.2.7.2.686 [id number] [facility] 2021-11-23 12:27:00 2021-11-23 13:57:00 Surgery Nicole Dawson [facility] ICAL SCIENCES [facility] 1..114 350.1.13.10 4.2.7.2.686 [id number] [facility] 2021-11-23 00:00:00 2021-11-23 00:00:00 Orders Only Doctor Unassigned, [place] [facility] 1..114 350.1.13.10 4.2.7.2.686 [id number] [facility] 2021-11-20 11:15:00 2021-11-20 11:30:00 Laboratory Only Only, Pcp Test Ronen Eden [facility] 1..114 350.1.13.10 4.2.7.2.686 [id number] [facility] 2021-11-20 11:15:00 2021-11-20 11:15:00 Outpatient R RONEN EDEN [facility] [id number] [facility] 2021-11-11 00:00:00 2021-11-11 00:00:00 Telephone Linda Chappell [facility] 1..114 350.1.13.10 4.2.7.2.686 [id number] [facility] 2021-11-11 00:00:00 2021-11-11 00:00:00 Telephone Linda Chappell [facility] 1.0.114 350.1.13.10 4.2.7.2.686 [id number] [facility] 2021-11-10 00:00:00 2021-11-10 00:00:00 Patient Secure Msg Doctor Unassigned, [place] [facility] SCIENCES [facility] 1..114 350.1.13.10 4.2.7.2.686 [id number] [facility] 2021-11-05 10:30:00 2021-11-05 10:30:00 Outpatient Yo GONZALES DEWAYNEEUGENIO [facility] [id number] [facility] 2021-11-05 10:30:00 2021-11-05 10:30:00 Outpatient QUINN BHATTI [facility] [id number] [facility] 2021-11-04 00:00:00 2021-11-04 00:00:00 Nikhil Nunez [facility] 1..114 350.1.13.10 4.2.7.2.686 [id number] [facility] 2021-11-03 15:30:00 2021-11-03 16:00:00 [facility] 1.[facility].114 350.1.13.10 4.2.7.2.686 [id number] [facility] 2021-11-03 15:30:00 2021-11-03 15:30:00 Outpatient Yo DAWSON [facility] [id number] [facility] 2021-11-03 15:30:00 2021-11-03 15:30:00 Outpatient Yo DAWSON [facility] [id number] [facility] 2021-11-03 14:45:00 2021-11-03 15:00:00 Purchasing Buyer Visit [facility] 1..114 350.1.13.10 4.2.7.2.686 [id number] [facility] 2021-11-03 00:00:00 2021-11-03 00:00:00 Orders Only Doctor Unassigned, [place] [facility] 1.2.840.114 350.1.13.10 4.2.7.2.686 [id number] [facility] 2021-10-29 13:30:00 2021-10-29 13:45:00 Purchasing Buyer Visit [facility] Jacob Mao [facility] 1.2.840.114 350.1.13.10 4.2.7.2.686 [id number] [facility] 2021-10-29 13:00:00 2021-10-29 13:00:00 Outpatient QUINN BHATTI [facility] [id number] [facility] 2021-10-29 11:15:00 2021-10-29 11:30:00 Office Visit Jacob Mao [facility] 1.2840.114 350.1.13.10 4.2.7.2.686 [id number] [facility] 2021-10-29 11:15:00 2021-10-29 11:15:00 Outpatient JACOB SAENZ [facility] [id number] [facility] 2021-10-26 00:00:00 2021-10-26 00:00:00 Case Management Lilia Metzger [facility] 1.2840.114 350.1.13.10 4.2.7.2.686 [id number] [facility] 2021-10-15 09:31:51 2021-10-15 23:59:00 Hospital Encounter Jacob Mao [facility] 1.2.840.114 350.1.13.10 4.2.7.2.686 [id number] [facility] 2021-10-15 09:31:20 2021-10-15 23:59:00 Outpatient R JACOB MAO [facility] [id number] [facility] 2021-10-15 09:31:20 2021-10-15 23:59:00 Hospital Encounter DaylinJacob Seng [facility] 1.2.840.114 350.1.13.10 4.2.7.2.686 [id number] [facility] 2021-10-15 00:00:00 2021-10-15 00:00:00 Jm Connell [facility] PRIMARY & SPECIALTY CARE 1.2.840.114 350.1.13.10 4.2.7.2.686 [id number] [facility] 2021-10-14 00:00:00 2021-10-14 00:00:00 Telephone John [facility] 1.2.840.114 350.1.13.10 4.2.7.2.686 [id number] [id number] [facility] 2021-10-12 00:00:00 2021-10-12 00:00:00 Patient Secure Msg Doctor Unassigned, [place] [facility] 1.2.840.114 350.1.13.10 4.2.7.2.686 [id number] [facility] 2021-10-09 13:00:00 2021-10-09 13:15:00 Purchasing Buyer Visit Pcp-Lab Nikhil Juarez [facility] PRIMARY CARE PAVILLION 1.2.840.114 350.1.13.10 4.2.7.2.686 [id number] [facility] 2021-10-09 11:00:00 2021-10-09 11:38:54 Outpatient R NIKHIL JUAREZ [facility] [id number] [facility] 2021-10-09 11:00:00 2021-10-09 11:38:54 Office Visit Geetha Lopez Emilio B [facility] PRIMARY CARE PAVILLION 1.2.840.114 350.1.13.10 4.2.7.2.686 [id number] [facility] 2021-10-08 10:15:00 2021-10-08 10:30:00 Imm/Inj Visit Quinn Damon [facility] MULTISPEC [facility]TY [facility] 1.0.114 350.1.13.10 4.2.7.2.686 [id number] [facility] 2021-10-08 10:15:00 2021-10-08 10:15:00 Outpatient R QUINN DAMON [facility] [id number] [facility] 2021-10-08 10:15:00 2021-10-08 10:15:00 Outpatient R QUINN DAMON [facility] [id number] [facility] 2021-10-08 00:00:00 2021-10-08 00:00:00 Orders Only Doctor Unassigned, [place] [facility] 1.840.114 350.1.13.10 4.2.7.2.686 [id number] [facility] 2021-10-06 00:00:00 2021-10-06 00:00:00 RefNazario Herr [facility] PRIMARY & SPECIALTY CARE 1.0.114 350.1.13.10 4.2.7.2.686 [id number] [facility] 2021-10-05 00:00:00 2021-10-05 00:00:00 Jm Connell [facility] PRIMARY & SPECIALTY CARE 1.0.114 350.1.13.10 4.2.7.2.686 [id number] [facility] 2021-09-10 10:45:00 2021-09-10 11:00:00 Imm/Inj Visit Quinn Damon [facility] MULTISPEC IALTY [facility] 1..114 350.1.13.10 4.2.7.2.686 [id number] [facility] 2021-09-10 10:45:00 2021-09-10 10:45:00 Outpatient R QUINN DAMON [facility] [id number] [facility] 2021-09-10 10:45:00 2021-09-10 10:45:00 [id number] 2021-09-10 10:45:00 2021-09-10 10:45:00 [facility] [id number] [facility] 2021-09-09 15:30:00 2021-09-09 16:11:50 Outpatient R ELISSA CAMPOS [facility] [id number] [facility] 2021-09-09 15:30:00 2021-09-09 16:11:50 Office Visit Elissa Campos [facility] 1..840.114 350.1.13.10 4.2.7.2.686 [id number] [facility] 2021-09-08 10:00:00 2021-09-08 11:39:15 Office Visit Sonya Quick [facility] 1.2.840.114 350.1.13.10 4.2.7.2.686 [id number] [facility] 2021-09-08 10:00:00 2021-09-08 11:39:15 Outpatient R SONYA QUICK [facility] [id number] [facility] 2021-09-08 10:00:00 2021-09-08 10:00:00 Outpatient R SONYA QUICK [facility] [id number] [facility] 2021-09-08 10:00:00 2021-09-08 10:00:00 Outpatient R SONYA QUICK [facility] [id number] [facility] 2021-09-04 00:00:00 2021-09-04 00:00:00 Orders Only Doctor Unassigned, [place] [facility] 1..114 350.1.13.10 4.2.7.2.686 [id number] [facility] 2021-09-03 13:45:00 2021-09-03 14:31:15 [facility] 1..114 350.1.13.10 4.2.7.2.686 [id number] [facility] 2021-09-03 13:45:00 2021-09-03 14:31:15 Outpatient R QUINN DAMON [facility] [id number] [facility] 2021-09-03 13:45:00 2021-09-03 13:45:00 Outpatient R QUINN DAMON [facility] [id number] [facility] 2021-09-03 13:45:00 2021-09-03 13:45:00 Outpatient R QUINN DAMON [facility] [id number] [facility] 2021-08-23 00:00:00 2021-08-23 00:00:00 Geetha Dimas [facility] 1..114 350.1.13.10 4.2.7.2.686 [id number] [facility] 2021-08-14 11:20:00 2021-08-14 11:40:00 [facility]..114 350.1.13.10 4.2.7.2.686 [id number] [facility] 2021-08-14 11:20:00 2021-08-14 11:20:00 Outpatient R LLOYD LOZA [facility] [id number] [facility] 2021-08-14 11:20:00 2021-08-14 11:20:00 Outpatient R LLOYD LOZA [facility] [id number] [facility] 2021-08-11 00:00:00 2021-08-11 00:00:00 Patient Secure Nazario Velásquez [facility] MEDICAL OFFICE BUILDING 1.84.114 350.1.13.10 4.2.7.2.686 [id number] [facility] 2021-08-10 00:00:00 2021-08-10 00:00:00 [facility]..114 350.1.13.10 4.2.7.2.686 [id number] [facility] 2021-08-06 10:30:00 2021-08-06 10:30:00 Outpatient R MATTHEW CANCINO [facility] [id number] [facility] 2021-08-03 00:00:00 2021-08-03 00:00:00 Nazario Robledo [facility] SPECIAL[facility] CARE [facility] 1..114 350.1.13.10 4.2.7.2.686 [id number] [facility] 2021-07-27 00:00:00 2021-07-27 00:00:00 Telephone Jacob Mao [facility] 1..114 350.1.13.10 4.2.7.2.686 [id number] [facility] 2021-07-23 13:30:00 2021-07-23 14:28:34 Outpatient R QUINN DAMON [facility] [id number] [facility] 2021-07-23 13:30:00 2021-07-23 14:28:34 Office Visit Quinn Damon [facility] MULTISPEC IALTY [facility] 1..114 350.1.13.10 4.2.7.2.686 [id number] [facility] 2021-07-23 11:00:00 2021-07-23 12:00:00 Office Visit Jacob Mao 2, Lilo Mda Procedure [facility] 1.0.114 350.1.13.10 4.2.7.2.686 [id number] [facility] 2021-07-23 11:00:00 2021-07-23 12:00:00 Office Visit Jacob Mao 2, Lilo Mda Procedure [facility] 1..114 350.1.13.10 4.2.7.2.686 [id number] [facility] 2021-07-23 11:00:00 2021-07-23 11:00:00 Outpatient JACOB SAENZ [facility] [id number] [facility] 2021-07-23 11:00:00 2021-07-23 11:00:00 Outpatient JACBO SAENZ [facility] [id number] [facility] 2021-07-23 11:00:00 2021-07-23 11:00:00 Outpatient JACOB SAENZ [facility] [id number] [facility] 2021-07-23 00:00:00 2021-07-23 00:00:00 Orders Only Doctor Unassigned, [place] [facility] 1.0.114 350.1.13.10 4.2.7.2.686 [id number] [facility] 2021-07-17 00:00:00 2021-07-17 00:00:00 Carlo Campos [facility] 1.0.114 350.1.13.10 4.2.7.2.686 [id number] [facility] 2021-07-16 00:00:00 2021-07-16 00:00:00 Elissa Henry [facility] 1.114 350.1.13.10 4.2.7.2.686 [id number] [facility] 2021-07-10 00:00:00 2021-07-10 00:00:00 Patient Secure Msg Quinn Damon [email or web address] MULTISPEC IALTY [facility] 1..114 350.1.13.10 4.2.7.2.686 [id number] [facility] 2021-07-03 00:00:00 2021-07-03 00:00:00 Patient Secure Msg Doctor Unassigned, [place] [facility] BUILDING 1.114 350.1.13.10 4.2.7.2.686 [id number] [facility] 2021-06-25 10:30:00 2021-06-25 11:25:18 Imm/Inj Visit Quinn Damon [facility] 1.114 350.1.13.10 4.2.7.2.686 [id number] [facility] 2021-06-25 10:30:00 2021-06-25 10:30:00 Outpatient R QUINN DAMON [facility] [id number] [facility] 2021-06-25 00:00:00 2021-06-25 00:00:00 Orders Only Doctor Unassigned, [place] [facility] 1.114 350.1.13.10 4.2.7.2.686 [id number] [facility] 2021-06-15 00:00:00 2021-06-15 00:00:00 Geetha Dimas [facility] PRIMARY CARE PAVILLION 1.2.840.114 350.1.13.10 4.2.7.2.686 [id number] [facility] 2021-06-11 13:00:00 2021-06-11 13:00:00 Outpatient JACOB SAENZ [facility] [id number] [facility] 2021-05-30 00:00:00 2021-05-30 00:00:00 [facility] 1.2.840.114 350.1.13.10 4.2.7.2.686 [id number] [facility] 2021-05-30 00:00:00 2021-05-30 00:00:00 [facility] 1.2840.114 350.1.13.10 4.2.7.2.686 [id number] [facility] 2021-05-29 00:00:00 2021-05-29 00:00:00 Refill Nazario Scott [facility] PRIMARY & SPECIALTY CARE 1.2.840.114 350.1.13.10 4.2.7.2.686 [id number] [facility] 2021-05-29 00:00:00 2021-05-29 00:00:00 Telephone Quinn Damon [email or web address]] MULTISPEC IALTY [facility] 1.2.840.114 350.1.13.10 4.2.7.2.686 [id number] [facility] 2021-05-28 11:00:00 2021-05-28 12:07:35 Imm/Inj Visit Quinn Damon [email or web address] MULTISPEC IALTY [facility] 1.2.840.114 350.1.13.10 4.2.7.2.686 [id number] [facility] 2021-05-28 11:00:00 2021-05-28 11:00:00 Outpatient QUINN BHATTI [facility] [id number] [facility] 2021-05-28 00:00:00 2021-05-28 00:00:00 Orders Only Doctor Unassigned, [place] [facility] 1.2840.114 350.1.13.10 4.2.7.2.686 [id number] [facility] 2021-05-27 15:00:00 2021-05-27 15:30:00 Telemedici ne Visit Elissa Campos [facility] 1.114 350.1.13.10 4.2.7.2.686 [id number] [facility] 2021-05-27 15:00:00 2021-05-27 15:00:00 Outpatient ELISSA DALEY [facility] [id number] [facility] 2021-05-14 00:00:00 2021-05-14 00:00:00 Orders Only Doctor Unassigned, [place] [facility] 1.84.114 350.1.13.10 4.2.7.2.686 [id number] [facility] 2021-04-30 11:00:00 2021-04-30 11:58:48 Outpatient QUINN BHATTI [facility] [id number] [facility] 2021-04-30 11:00:00 2021-04-30 11:15:00 [facility] 1.114 350.1.13.10 4.2.7.2.686 [id number] [facility] 2021-04-30 00:00:00 2021-04-30 00:00:00 Orders Only Doctor Unassigned, [place] [facility] 1.2.840.114 350.1.13.10 4.2.7.2.686 [id number] [facility] 2021-04-23 13:10:00 2021-04-23 13:10:00 [facility] [id number] [facility] 2021-04-23 13:10:00 2021-04-23 13:10:00 Outpatient Yo FERRARI [facility] [id number] [facility] 2021-04-23 13:10:00 2021-04-23 13:10:00 [facility] [id number] [facility] 2021-04-23 09:15:00 2021-04-23 11:13:29 Outpatient QUINN BHATTI [facility] [id number] [facility] 2021-04-23 09:15:00 2021-04-23 11:13:29 Office Visit Quinn Damon [facility] 1..114 350.1.13.10 4.2.7.2.686 [id number] [facility] 2021-04-23 09:15:00 2021-04-23 09:15:00 Outpatient QUINN BHATTI [facility] [id number] [facility] 2021-04-14 14:21:01 2021-04-14 23:59:00 Hospital Encounter Linda Chappell [facility] 1..114 350.1.13.10 4.2.7.2.686 [id number] [facility] 2021-04-14 15:45:00 2021-04-14 16:00:00 Office Visit Marcy Willett [facility] 1..114 350.1.13.10 4.2.7.2.686 [id number] [facility] 2021-04-14 15:45:00 2021-04-14 15:45:00 Outpatient R MARCY WILLETT [facility] [id number] [facility] 2021-04-14 15:45:00 2021-04-14 15:45:00 Outpatient R MARCY WILLETT [facility] [id number] [facility] 2021-04-14 15:45:00 2021-04-14 15:45:00 Outpatient R MARCY WILLETT [facility] [id number] [facility] 2021-04-14 14:20:32 2021-04-14 14:20:32 Hospital Encounter Linda Chappell [facility] 1.114 350.1.13.10 4.2.7.2.686 [id number] [facility] 2021-04-14 14:20:32 2021-04-14 14:20:32 Outpatient R LINDA CHAPPELL [facility] [id number] [facility] 2021-04-14 00:00:00 2021-04-14 00:00:00 [facility] [id number] [facility] 2021-04-14 00:00:00 2021-04-14 00:00:00 Patient Secure Msg Lopez, Geetha [facility] 1.114 350.1.13.10 4.2.7.2.686 [id number] [facility] 2021-04-14 00:00:00 2021-04-14 00:00:00 Patient Secure Msg Lopez, Geetha [facility] 1.114 350.1.13.10 4.2.7.2.686 [id number] [facility] 2021-04-13 00:00:00 2021-04-13 00:00:00 Patient Secure Msg Lopez, Geetha [facility] 1.2.840.114 350.1.13.10 4.2.7.2.686 [id number] [facility] 2021-04-10 10:00:00 2021-04-10 11:02:57 Outpatient NIKHIL MOROCHO [facility] [id number] [facility] 2021-04-10 09:41:48 2021-04-10 11:02:57 Office Visit Geetha Lopez Emilio B [facility] 1.2.840.114 350.1.13.10 4.2.7.2.686 [id number] [facility] [facility] 2021-03-25 00:00:00 2021-03-25 00:00:00 Refill DilanLokesh wolfmilana Camargo [facility] 1.2.840.114 350.1.13.10 4.2.7.2.686 [id number] [facility] 2021-03-25 00:00:00 2021-03-25 00:00:00 Refill Cielo Kong [facility] 1.2.840.114 350.1.13.10 4.2.7.2.686 [id number] [facility] 2021-03-24 00:00:00 2021-03-24 00:00:00 [facility] 1.2.840.114 350.1.13.10 4.2.7.2.686 [id number] [facility] 2021-03-23 11:45:00 2021-03-23 11:45:00 Outpatient MARCY MONTANEZ [facility] [id number] [facility] 2021-03-19 10:00:00 2021-03-19 12:31:52 Outpatient QUINN BHATTI [facility] [id number] [facility] 2021-03-19 09:38:39 2021-03-19 12:31:52 Office Visit Quinn Damon [facility] 1.840.114 350.1.13.10 4.2.7.2.686 [id number] [facility] 2021-03-19 10:00:00 2021-03-19 10:00:00 Outpatient R QUINN DAMON [facility] [id number] [facility] 2021-03-16 00:00:00 2021-03-16 00:00:00 Telephone Marcy Willett [facility] 1..840.114 350.1.13.10 4.2.7.2.686 [id number] [facility] 2021-03-13 00:00:00 2021-03-13 00:00:00 Patient Secure Linda Briseno [facility] 1..840.114 350.1.13.10 4.2.7.2.686 [id number] [facility] 2021-03-11 08:37:38 2021-03-11 23:59:00 Outpatient R LINDA CHAPPELL [facility] [id number] [facility] 2021-03-11 08:37:38 2021-03-11 23:59:00 [facility].114 350.1.13.10 4.2.7.2.686 [id number] [facility] 2021-03-11 08:37:38 2021-03-11 23:59:00 Outpatient R LINDA CHAPPELL [facility] [id number] [facility] 2021-03-11 08:37:38 2021-03-11 08:37:38 Outpatient LINDA PIERRE [facility] [id number] [facility] 2021-03-09 00:00:00 2021-03-09 00:00:00 Patient Secure Linda Barrow [facility] 1.2.840.114 350.1.13.10 4.2.7.2.686 [id number] [facility] 2021-03-09 00:00:00 2021-03-09 00:00:00 Patient Secure Linda Barrow [facility] 1.2.840.114 350.1.13.10 4.2.7.2.686 [id number] [facility] 2021-03-06 00:00:00 2021-03-06 00:00:00 Telephone Elissa Campos [facility] 1.840.114 350.1.13.10 4.2.7.2.686 [id number] [facility] 2021-03-06 00:00:00 2021-03-06 00:00:00 Patient Secure [facility] 1.0.114 350.1.13.10 4.2.7.2.686 [id number] [facility] 2021-03-03 00:00:00 2021-03-03 00:00:00 Outpatient LINDA PIERRE [facility] [id number] [facility] 2021-03-02 11:00:00 2021-03-02 11:00:00 Outpatient JACOB SAENZ [facility] [id number] [facility] 2021-03-02 11:00:00 2021-03-02 11:00:00 Outpatient JACOB SAENZ [facility] [id number] [facility] 2021-03-02 10:36:38 2021-03-02 10:51:38 Office Visit Jacob Mao [facility] 1.840.114 350.1.13.10 4.2.7.2.686 [id number] [facility] 2021-02-23 00:00:00 2021-02-23 00:00:00 Telephone Elissa Campos [facility] 1.840.114 350.1.13.10 4.2.7.2.686 [id number] [facility] 2021-02-20 12:41:44 2021-02-20 23:59:00 Hospital Encounter [facility] 1.0.114 350.1.13.10 4.2.7.2.686 [id number] [facility] 2021-02-20 13:09:17 2021-02-20 13:18:26 Purchasing Buyer Visit [facility] 1.0.114 350.1.13.10 4.2.7.2.686 [id number] [facility] 2021-02-20 13:00:00 2021-02-20 13:00:00 Outpatient ELISSA DALEY [facility] [id number] [facility] 2021-02-18 16:30:00 2021-02-18 16:30:00 Outpatient ELISSA DALEY [facility] [id number] [facility] 2021-02-18 15:54:23 2021-02-18 16:24:23 Office Visit [facility] 1.0.114 350.1.13.10 4.2.7.2.686 [id number] [facility] 2021-02-13 11:55:01 2021-02-13 12:10:01 Purchasing Buyer Visit [facility] Lloyd Loza [facility] 1.0.114 350.1.13.10 4.2.7.2.686 [id number] [facility] 2021-02-13 10:53:56 2021-02-13 11:46:59 Office Visit Dago Elolidia Iveth [facility] 1.114 350.1.13.10 4.2.7.2.686 [id number] [facility] 2021-02-13 11:20:00 2021-02-13 11:20:00 Outpatient R LLOYD LOZA [facility] [id number] [facility] 2021-02-12 10:30:00 2021-02-12 12:50:30 Outpatient R QUINN DAMON [facility] [id number] [facility] 2021-02-12 10:30:00 2021-02-12 12:50:30 Outpatient R QUINN DAMON [facility] [id number] [facility] 2021-02-12 10:22:15 2021-02-12 10:37:15 Imm/Inj Visit Quinn Damon [facility] 1.114 350.1.13.10 4.2.7.2.686 [id number] [facility] 2021-02-12 10:30:00 2021-02-12 10:30:00 Outpatient R QUINN DAMON [facility] [id number] [facility] 2021-02-12 00:00:00 2021-02-12 00:00:00 Orders Only Doctor Unassigned, [place] [facility] 1.114 350.1.13.10 4.2.7.2.686 [id number] [facility] 2021-02-09 00:00:00 2021-02-09 00:00:00 Carlo Campos [facility] 1.114 350.1.13.10 4.2.7.2.686 [id number] [facility] 2021-01-08 10:45:00 2021-01-08 12:50:15 Outpatient R QUINN DAMON [facility] [id number] [facility] 2021-01-08 10:45:00 2021-01-08 12:50:15 Outpatient R QUINN DAMON [facility] [id number] [facility] 2021-01-08 10:44:59 2021-01-08 10:59:59 Imm/Inj Visit Quinn Damon [facility] 1..840.114 350.1.13.10 4.2.7.2.686 [id number] [facility] 2021-01-08 10:45:00 2021-01-08 10:45:00 Outpatient R QUINN DAMON [facility] [id number] [facility] 2021-01-08 00:00:00 2021-01-08 00:00:00 Orders Only Doctor Unassigned, [place] [facility] 1..840.114 350.1.13.10 4.2.7.2.686 [id number] [facility] 2020-12-25 00:00:00 2020-12-25 00:00:00 Refill Cielo Kong [facility] 1..840.114 350.1.13.10 4.2.7.2.686 [id number] [facility] 2020-12-18 13:00:00 2020-12-18 13:00:00 Outpatient MATTHEW GONZALEZ [facility] [id number] [facility] 2020-12-18 13:00:00 2020-12-18 13:00:00 Outpatient MATTHEW GONZALEZ [facility] [id number] [facility] 2020-12-18 12:41:49 2020-12-18 12:56:49 Office Visit [facility]ancino [facility] 1..840.114 350.1.13.10 4.2.7.2.686 [id number] [facility] 2020-12-11 10:15:00 2020-12-11 11:33:34 Outpatient R QUINN DAMON [facility] [id number] [facility] 2020-12-11 10:15:00 2020-12-11 11:33:34 Outpatient R QUINN DAMON [facility] [id number] [facility] 2020-12-11 10:15:00 2020-12-11 10:15:00 Outpatient R QUINN DAMON [facility] [id number] [facility] 2020-12-11 09:54:01 2020-12-11 10:09:01 Imm/Inj Visit Quinn Damon [email or web address] ..114 350.1.13.10 4.2.7.2.686 [id number] [facility] 2020-12-11 00:00:00 2020-12-11 00:00:00 Orders Only Doctor Unassigned, [place] [facility] 1.114 350.1.13.10 4.2.7.2.686 [id number] [facility] 2020-12-09 09:33:03 2020-12-09 10:50:56 Office Visit Sonya Quick [facility] 1.84.114 350.1.13.10 4.2.7.2.686 [id number] [facility] 2020-12-09 10:00:00 2020-12-09 10:00:00 Outpatient R SONYA QUICK [facility] [id number] [facility] 2020-12-08 00:00:00 2020-12-08 00:00:00 Patient Secure Lloyd Boss Rp [facility] 1.2.114 350.1.13.10 4.2.7.2.686 [id number] [facility] 2020-12-08 00:00:00 2020-12-08 00:00:00 Patient Secure Lloyd Boss Rp [facility] 1..114 350.1.13.10 4.2.7.2.686 [id number] [facility] 2020-12-04 14:45:00 2020-12-04 14:45:00 Outpatient QUINN BHATTI [facility] [id number] [facility] 2020-12-04 14:45:00 2020-12-04 14:45:00 Outpatient QUINN BHATTI [facility] [id number] [facility] 2020-12-04 14:16:00 2020-12-04 14:31:00 [facility] 1..114 350.1.13.10 4.2.7.2.686 [id number] [facility] 2020-11-24 10:24:30 2020-11-24 11:24:30 Office Visit Jacob Mao 2, Lilo Mda Procedure [facility] 1..114 350.1.13.10 4.2.7.2.686 [id number] [facility] 2020-11-24 10:30:00 2020-11-24 10:30:00 Outpatient JACOB SAENZ [facility] [id number] [facility] 2020-11-24 10:30:00 2020-11-24 10:30:00 Outpatient JACOB SAENZ [facility] [id number] [facility] 2020-11-24 10:30:00 2020-11-24 10:30:00 Outpatient JACOB SAENZ [facility] [id number] [facility] 2020-11-24 10:30:00 2020-11-24 10:30:00 Outpatient JACOB SAENZ [facility] [id number] [facility] 2020-11-24 00:00:00 2020-11-24 00:00:00 Orders Only Doctor Unassigned, [place] [facility] 1.840.114 350.1.13.10 4.2.7.2.686 [id number] [facility] 2020-11-20 00:00:00 2020-11-20 00:00:00 Anatoly Díaz [facility] 1.0.114 350.1.13.10 4.2.7.2.686 [id number] [facility] 2020-11-17 00:00:00 2020-11-17 00:00:00 Patient Secure [facility]il [facility] 1..114 350.1.13.10 4.2.7.2.686 [id number] [facility] 2020-11-13 10:49:43 2020-11-13 23:59:00 [facility] 1.[facility].114 350.1.13.10 4.2.7.2.686 [id number] [facility] 2020-11-13 10:49:16 2020-11-13 23:59:00 Hospital Encounter [facility] 1.840.114 350.1.13.10 4.2.7.2.686 [id number] [facility] 2020-11-13 13:45:00 2020-11-13 13:45:00 Outpatient R MATTHEW CANCINO [facility] [id number] [facility] 2020-11-13 13:16:57 2020-11-13 13:31:57 Office Visit Matthew Cancino [facility] [employer] [facility]. 1.0.114 350.1.13.10 4.2.7.2.686 [id number] [facility] 2020-11-12 00:00:00 2020-11-12 00:00:00 Patient Secure Camelia Aaron [facility] 1..114 350.1.13.10 4.2.7.2.686 [id number] [facility] 2020-11-07 10:09:31 2020-11-07 11:44:19 Office Visit Geetha Lopez Vijaya Laxmi [facility] 1..114 350.1.13.10 4.2.7.2.686 [id number] [facility] 2020-11-07 11:00:00 2020-11-07 11:00:00 Outpatient R [facility] [id number] [facility] 2020-11-07 00:00:00 2020-11-07 00:00:00 Nazario Robledo [facility] 1..114 350.1.13.10 4.2.7.2.686 [id number] [facility] 2020-11-06 09:15:52 2020-11-06 10:33:04 Office Visit Quinn Damon [facility] 1..114 350.1.13.10 4.2.7.2.686 [id number] [facility] 2020-11-06 09:45:00 2020-11-06 09:45:00 Outpatient R KOFI GONZALES DEWAYNEEUGENIO [facility] [id number] [facility] 2020-11-04 11:54:53 2020-11-04 12:09:53 Purchasing Buyer Visit Pcp-Lab Lloyd Loza [facility]ARE PAVILLION 1.2840.114 350.1.13.10 4.2.7.2.686 [id number] [facility] 2020-11-04 10:13:16 2020-11-04 11:15:01 Office Visit Matthew Cancino [facility] [employer] [facility] 1.20.114 350.1.13.10 4.2.7.2.686 [id number] [facility] 2020-11-04 10:30:00 2020-11-04 10:30:00 Outpatient R MATTHEW CANCINO [facility] [id number] [facility] 2020-11-04 00:00:00 2020-11-04 00:00:00 Telephone Lloyd Loza Rp [facility] 1.2.114 350.1.13.10 4.2.7.2.686 [id number] [facility] 2020-11-03 09:35:00 2020-11-03 10:28:00 Surgery Matthew Cancinoammed [facility] 1.20.114 350.1.13.10 4.2.7.2.686 [id number] [facility] 2020-11-03 00:00:00 2020-11-03 00:00:00 Orders Only Doctor Unassigned, [place] [facility] 1.2840.114 350.1.13.10 4.2.7.2.686 [id number] [facility] 2020-11-03 00:00:00 2020-11-03 00:00:00 Patient Secure Msg Cielo Kong [facility] 1..840.114 350.1.13.10 4.2.7.2.686 [id number] [facility] 2020-10-28 10:00:00 2020-10-28 10:00:00 Outpatient R LINDA CHAPPELL [facility] [id number] [facility] 2020-10-27 00:00:00 2020-10-27 00:00:00 Patient Secure Msg Erlin Cancinomercedes [facility] [employer] [facility] 1.2.840.114 350.1.13.10 4.2.7.2.686 [id number] [facility] 2020-10-02 14:57:30 2020-10-02 16:26:51 Office Visit [facility] 1..840.114 350.1.13.10 4.2.7.2.686 [id number] [facility] 2020-10-02 15:15:00 2020-10-02 15:15:00 Outpatient R QUINN DAMON [facility] [id number] [facility] 2020-09-30 15:00:00 2020-09-30 15:00:00 Outpatient R MATTHEW CANCINO [facility] [id number] [facility] 2020-09-30 14:38:32 2020-09-30 14:53:32 Office Visit BarakErlinmayemercedes [facility]. 1.2.840.114 350.1.13.10 4.2.7.2.686 [id number] [facility] 2020-09-30 00:00:00 2020-09-30 00:00:00 Orders Only Doctor Unassigned, [place] [facility] 1.2.840.114 350.1.13.10 4.2.7.2.686 [id number] [facility] 2020-09-09 13:30:00 2020-09-09 13:30:00 Outpatient R KACEYKAITLYN ANATOLY [facility] [id number] [facility] 2020-09-09 12:57:24 2020-09-09 13:27:24 Office Visit Anatoly Ramos [facility] 1.2.840.114 350.1.13.10 4.2.7.2.686 [id number] [facility] 2020-09-09 08:47:41 2020-09-09 09:26:29 Office Visit Sonya Quick [facility] 1.2.840.114 350.1.13.10 4.2.7.2.686 [id number] [facility] 2020-09-08 12:44:52 2020-09-08 23:59:00 Outpatient TONA VELA JR [facility] [id number] [facility] 2020-09-08 13:56:59 2020-09-08 16:34:34 Office Visit Faculty, Vascular Surg Marcy Willett [facility] 1.2.840.114 350.1.13.10 4.2.7.2.686 [id number] [facility] 2020-09-08 15:15:00 2020-09-08 15:15:00 Outpatient R [facility] [id number] [facility] 2020-09-08 00:00:00 2020-09-08 00:00:00 Outpatient TONA VELA JR [facility] [id number] [facility] 2020-09-08 00:00:00 2020-09-08 00:00:00 Refill Gurski, [facility] 1.20.114 350.1.13.10 4.2.7.2.686 [id number] [facility] 2020-09-08 00:00:00 2020-09-08 00:00:00 [facility] 1.2.114 350.1.13.10 4.2.7.2.686 [id number] [facility] 2020-09-03 13:15:00 2020-09-03 13:15:00 Outpatient R MATTHEW CANCINO [facility] [id number] [facility] 2020-08-28 12:49:23 2020-08-28 14:13:21 Office Visit Quinn Damon [facility] 1..114 350.1.13.10 4.2.7.2.686 [id number] [facility] 2020-08-28 13:00:00 2020-08-28 13:00:00 Outpatient R QUINN DAMON [facility] [id number] [facility] 2020-08-13 00:00:00 2020-08-13 00:00:00 Patient Secure Msg Doctor Unassigned, [place] [facility] 1.840.114 350.1.13.10 4.2.7.2.686 [id number] [facility] 2020-08-13 00:00:00 2020-08-13 00:00:00 Telephone Anatoly Ramos [facility] Medical Office Building 1..114 350.1.13.10 4.2.7.2.686 [id number] [facility] 2020-08-13 00:00:00 2020-08-13 00:00:00 Patient Secure Msg Lloyd Loza [facility] 1.2.840.114 350.1.13.10 4.2.7.2.686 [id number] [id number] [facility] 2020-08-12 00:00:00 2020-08-12 00:00:00 Patient Secure Msg Lloyd Loza [employer] [employer] BUILDING 1.2.840.114 350.1.13.10 4.2.7.2.686 [id number] [facility] 2020-08-12 00:00:00 2020-08-12 00:00:00 Patient Secure Msg Jeanne Ilnda [facility] 1.2.840.114 350.1.13.10 4.2.7.2.686 [id number] [facility] 2020-08-12 00:00:00 2020-08-12 00:00:00 Anatoly Díaz [facility] 1.2.840.114 350.1.13.10 4.2.7.2.686 [id number] [facility] 2020-08-11 09:06:35 2020-08-11 13:31:13 Office Visit Lloyd Loza Rp [employer] [facility]ILD[facility] 1.2.840.114 350.1.13.10 4.2.7.2.686 [id number] [facility] 2020-08-11 10:00:00 2020-08-11 10:00:00 Outpatient R LLOYD LOZA [facility] [id number] [facility] 2020-08-11 08:54:33 2020-08-11 08:59:48 Purchasing Buyer Visit [facility] Lloyd Loza [facility] 1.2.840.114 350.1.13.10 4.2.7.2.686 [id number] [facility] 2020-08-11 00:00:00 2020-08-11 00:00:00 Patient Secure Lloyd Boss [facility] 1.2.840.114 350.1.13.10 4.2.7.2.686 [id number] [id number] [facility] 2020-08-07 00:00:00 2020-08-07 00:00:00 Patient Secure Lloyd Boss [facility] 1.2.840.114 350.1.13.10 4.2.7.2.686 [id number] [facility] 2020-08-06 09:17:09 2020-08-06 23:59:00 Hospital Encounter Sonya Quick [place] 1, halfway Rad Oncology Linac [facility] [place] [facility] 1.2.840.114 350.1.13.10 4.2.7.2.686 [id number] [facility] 2020-08-05 09:14:15 2020-08-05 23:59:00 Hospital Encounter Sonya Quick [place] 1, halfway Rad Oncology Linac [facility] [place] [facility] 1.2.840.114 350.1.13.10 4.2.7.2.686 [id number] [facility] 2020-08-05 09:14:50 2020-08-05 15:58:48 Treatment Management NguyenS[facility]OK[facility] [place] [facility] 1.2.840.114 350.1.13.10 4.2.7.2.686 [id number] [facility] 2020-08-04 09:30:00 2020-08-04 23:59:00 Hospital Encounter Sonya Quick 1, halfway Rad Oncology Linac [facility] 1.2.840.114 350.1.13.10 4.2.7.2.686 [id number] 181 [id number] [facility] 2020-08-04 08:04:23 2020-08-04 08:25:33 Purchasing Buyer Visit [facility] Lloyd Loza [facility] 1.2840.114 350.1.13.10 4.2.7.2.686 [id number] [facility] 2020-08-04 08:15:00 2020-08-04 08:15:00 Outpatient R DAGO ELOLidia [facility] [id number] [facility] 2020-08-01 09:01:05 2020-08-01 23:59:00 Hospital Encounter Sonya Quick 1, halfway Rad Oncology Linac [facility] BUILD[facility] 1.2840.114 350.1.13.10 4.2.7.2.686 [id number] [facility] 2020-07-31 09:30:00 2020-07-31 23:59:00 Hospital Encounter Sonya Quick 1, halfway Rad Oncology Linac [facility] 1.2840.114 350.1.13.10 4.2.7.2.686 [id number] [facility] 2020-07-31 14:20:34 2020-07-31 16:19:47 [facility] 1.20.114 350.1.13.10 4.2.7.2.686 [id number] [facility] 2020-07-31 14:45:00 2020-07-31 14:45:00 Outpatient R QUINN DAMON [facility] [id number] [facility] 2020-07-31 09:30:00 2020-07-31 09:30:00 Outpatient R SONYA QUICK [facility] [id number] [facility] 2020-07-31 08:30:07 2020-07-31 08:45:07 Purchasing Buyer Visit [facility] Lloyd Lo[facility] 1.20.114 350.1.13.10 4.2.7.2.686 [id number] [facility] 2020-07-31 00:00:00 2020-07-31 00:00:00 Case Management Holden Griffith [facility] 1.2.840.114 350.1.13.10 4.2.7.2.686 [id number] [facility] 2020-07-30 10:00:00 2020-07-30 10:00:00 Outpatient LLOYD FRAZIER [facility] [id number] [facility] 2020-07-29 00:00:00 2020-07-29 00:00:00 Case Management Holden [facility] 1.2.840.114 350.1.13.10 4.2.7.2.686 [id number] [facility] 2020-07-29 00:00:00 2020-07-29 00:00:00 Telephone Linda Chappell [facility] 1.2.840.114 350.1.13.10 4.2.7.2.686 [id number] [facility] 2020-07-28 09:12:17 2020-07-28 23:59:00 Hospital Encounter Sonya Quick 1, [facility] Linac [facility] 1.2.840.114 350.1.13.10 4.2.7.2.686 [id number] [facility] 2020-07-28 09:30:54 2020-07-28 11:30:54 Nurse Visit 3, [facility] Adult Infusion Nurse Lloyd Loza [facility] 1.2.840.114 350.1.13.10 4.2.7.2.686 [id number] [facility] 2020-07-28 11:00:00 2020-07-28 11:00:00 Outpatient LLOYD FRAZIER [facility] [id number] [facility] 2020-07-25 09:00:33 2020-07-25 23:59:00 Hospital Encounter Sonya Quick 1, halfway Rad Oncology Linac [facility] 1.2.840.114 350.1.13.10 4.2.7.2.686 [id number] [facility] 2020-07-25 15:24:04 2020-07-25 15:39:04 Purchasing Buyer Visit [facility] Lloyd Loza [facility] 1.2840.114 350.1.13.10 4.2.7.2.686 [id number] [facility] 2020-07-25 09:56:28 2020-07-25 11:04:13 Office Visit Linda Chappell [facility] 1.2840.114 350.1.13.10 4.2.7.2.686 [id number] [facility] [facility] 2020-07-25 10:00:00 2020-07-25 10:00:00 Outpatient R LINDA CHAPPELL [facility] [id number] [facility] 2020-07-25 09:29:21 2020-07-25 09:41:53 Purchasing Buyer Visit [facility] Lloyd Loza [facility] 1.2840.114 350.1.13.10 4.2.7.2.686 [id number] [facility] 2020-07-25 00:00:00 2020-07-25 00:00:00 Telephone Linda Chappell [facility] 1.2840.114 350.1.13.10 4.2.7.2.686 [id number] 080 [id number] [facility] 2020-07-24 09:21:34 2020-07-24 23:59:00 Hospital Encounter Sonya Quick 1, halfway Rad Oncology Linac [facility] 1.2.840.114 350.1.13.10 4.2.7.2.686 [id number] 181 [id number] [facility] 2020-07-24 00:00:00 2020-07-24 00:00:00 Patient Secure Msg DilanCielo wolf [facility] PRIMARY [facility]ARE PAVILLION 1.2.840.114 350.1.13.10 4.2.7.2.686 [id number] [facility] 2020-07-23 09:30:00 2020-07-23 23:59:00 Hospital Encounter Sonya Quick 1Efrain Rad Oncology Lin[facility] 1.2.840.114 350.1.13.10 4.2.7.2.686 [id number] 181 [id number] [facility] 2020-07-22 08:47:06 2020-07-22 23:59:00 Hospital Encounter Sonya Quick 1Efrain Rad Oncology Linac [facility] BUILDING 1.2.840.114 350.1.13.10 4.2.7.2.686 [id number] [facility] 2020-07-22 08:48:02 2020-07-22 12:08:15 Treatment Management Sonya Quick Diego [facility] BUILDING 1.2.840.114 350.1.13.10 4.2.7.2.686 [id number] 181 [id number] [facility] 2020-07-22 00:00:00 2020-07-22 00:00:00 Patient Secure Msg DilanCielo [facility] PR[facility] PAVILLION 1.2.840.114 350.1.13.10 4.2.7.2.686 [id number] 086 [id number] [facility] 2020-07-21 08:51:52 2020-07-21 23:59:00 Hospital Encounter Sonya Quick Efrain Johnson Rad Oncology Linac [facility] BUILDING 1.2.840.114 350.1.13.10 4.2.7.2.686 [id number] 181 [id number] [facility] 2020-07-21 00:00:00 2020-07-21 00:00:00 Telephone Linda Chappell BUILDING 1.2.840.114 350.1.13.10 4.2.7.2.686 [id number] 080 [id number] [facility] 2020-07-18 09:01:10 2020-07-18 23:59:00 Hospital Encounter Sonya Quick 1, halfway Rad Oncology Lin[facility] 1.2.840.114 350.1.13.10 4.2.7.2.686 [id number] 181 [id number] [facility] 2020-07-18 00:00:00 2020-07-18 00:00:00 Patient Secure Msg Sonya Quick [place] [facility] 1.2.840.114 350.1.13.10 4.2.7.2.686 [id number] 181 [id number] [facility] 2020-07-17 09:03:15 2020-07-17 23:59:00 Hospital Encounter Sonya Quick 1, halfway Rad Oncology Linac [facility] 1.2.840.114 350.1.13.10 4.2.7.2.686 [id number] 181 [id number] [facility] 2020-07-17 00:00:00 2020-07-17 00:00:00 Case Management Huber Mi GOMEZ [facility]ILD[facility] 1.2.840.114 350.1.13.10 4.2.7.2.686 [id number] 080 [id number] [facility] 2020-07-16 09:05:04 2020-07-16 23:59:00 Hospital Encounter Sonya Quick 1, halfway Rad Oncology Linac [facility] 1.2.840.114 350.1.13.10 4.2.7.2.686 [id number] [facility] 2020-07-15 09:01:30 2020-07-15 23:59:00 Hospital Encounter Sonya Quick 1, halfway Rad Oncology Linac [facility] 1.2.840.114 350.1.13.10 4.2.7.2.686 [id number] 181 [id number] [facility] 2020-07-15 09:02:49 2020-07-15 10:26:03 Treatment Management Helen Ortiz [facility] 1.2.840.114 350.1.13.10 4.2.7.2.686 [id number] 181 [id number] [facility] 2020-07-14 09:02:39 2020-07-14 23:59:00 Hospital Encounter Sonya Quick 1, halfway Rad Oncology Linac [facility] 1.2.840.114 350.1.13.10 4.2.7.2.686 [id number] [facility] 2020-07-11 09:30:00 2020-07-11 23:59:00 Hospital Encounter Sonya Quick 1, halfway Rad Oncology Linac [facility] 1.2.840.114 350.1.13.10 4.2.7.2.686 [id number] 181 [id number] [facility] 2020-07-11 11:00:00 2020-07-11 11:00:00 Outpatient R LLOYD LOZA [facility] [id number] [facility] 2020-07-11 09:41:46 2020-07-11 09:56:46 Nurse Visit Nurse, [facility] 1.2.840.114 350.1.13.10 4.2.7.2.686 [id number] [facility] 2020-07-10 09:30:00 2020-07-10 23:59:00 Hospital Encounter Sonya Quick 1, halfway Rad Oncology Linac [facility] 1.2.840.114 350.1.13.10 4.2.7.2.686 [id number] 181 [id number] [facility] 2020-07-09 09:17:07 2020-07-09 23:59:00 Hospital Encounter Sonya Quick 1, halfway Rad Oncology Linac [facility] 1.2.840.114 350.1.13.10 4.2.7.2.686 [id number] 181 [id number] [facility] 2020-07-08 09:19:55 2020-07-08 23:59:00 Hospital Encounter Sonya Quick 1, halfway Rad Oncology Linac JASON [facility]ILD[facility] 1.2.840.114 350.1.13.10 4.2.7.2.686 [id number] 181 [id number] [facility] 2020-07-08 09:20:22 2020-07-08 11:48:35 Treatment Management Sonya Quick H BUILDING 1.2.840.114 350.1.13.10 4.2.7.2.686 [id number] [facility] 2020-07-07 09:09:24 2020-07-07 23:59:00 Hospital Encounter Sonya Quick 1, halfway Rad Oncology Linac [facility] 1.2.840.114 350.1.13.10 4.2.7.2.686 [id number] [facility] 2020-07-07 09:58:44 2020-07-07 11:58:44 Nurse Visit 3, [facility] Adult Infusion Nurse Lloyd Loza [facility] 1.2.840.114 350.1.13.10 4.2.7.2.686 [id number] [id number] [facility] 2020-07-07 11:00:00 2020-07-07 11:00:00 Outpatient R LLOYD LOZA [facility] [id number] [facility] 2020-07-07 09:30:00 2020-07-07 09:30:00 Outpatient R SONYA QUICK [facility] [id number] [facility] 2020-07-07 09:08:54 2020-07-07 09:08:54 Hospital Encounter Sonya Quick [place] 1, [facility] Linac [facility] 1.2.840.114 350.1.13.10 4.2.7.2.686 [id number] [facility] 2020-07-04 00:00:00 2020-07-04 00:00:00 Telephone Lloyd Loza [facility] 1.2840.114 350.1.13.10 4.2.7.2.686 [id number] [facility] 2020-07-03 15:15:00 2020-07-03 15:15:00 Outpatient R QUINN DAMON [facility] [id number] [facility] 2020-07-03 14:58:01 2020-07-03 15:13:01 Office Visit Quinn Damon [facility] 1.0.114 350.1.13.10 4.2.7.2.686 [id number] [facility] 2020-07-03 14:31:32 2020-07-03 14:46:32 Purchasing Buyer Visit Vls-Lab Lloyd Loza Rp [facility] 1.2840.114 350.1.13.10 4.2.7.2.686 [id number] [facility] 2020-07-02 11:30:00 2020-07-02 11:30:00 Outpatient R ELISSA CAMPOS [facility] [id number] [facility] 2020-07-02 08:00:04 2020-07-02 08:30:04 Telemedici ne Visit Elissa Campos [facility] 1..114 350.1.13.10 4.2.7.2.686 [id number] [facility] 2020-07-02 00:00:00 2020-07-02 00:00:00 Patient Secure Msg Doctor Unassigned, [place] [facility] 1..114 350.1.13.10 4.2.7.2.686 [id number] [id number] [facility] 2020-06-26 10:57:04 2020-06-26 11:19:13 Purchasing Buyer Visit [facility] Cielo Kong [facility] 1.114 350.1.13.10 4.2.7.2.686 [id number] [facility] 2020-06-26 11:00:00 2020-06-26 11:00:00 Outpatient SONYA ROBERTO [facility] [id number] [facility] 2020-06-26 10:44:16 2020-06-26 10:59:16 Laboratory Only Only, [facility] Test Sonya Quick [facility] 1.114 350.1.13.10 4.2.7.2.686 [id number] [facility] 2020-06-24 12:04:05 2020-06-24 23:59:00 Hospital Encounter Linda Chappell Jennifer S. Randolph, Julie K [facility] 1..114 350.1.13.10 4.2.7.2.686 [id number] [facility] 2020-06-24 12:30:00 2020-06-24 12:30:00 Outpatient R LINDA CHAPPELL [facility] [id number] [facility] 2020-06-23 00:00:00 2020-06-23 00:00:00 Case Management Lloyd Loza [facility] 1.840.114 350.1.13.10 4.2.7.2.686 [id number] [facility] 2020-06-17 11:00:00 2020-06-17 11:00:00 Outpatient R LINDA CHAPPELL [facility] [id number] [facility] 2020-06-13 06:30:00 2020-06-13 23:59:00 Hospital Encounter Sonya Quick [facility] Isaac Driver [facility] 1..840.114 350.1.13.10 4.2.7.2.686 [id number] [facility] 2020-06-13 06:30:00 2020-06-13 06:30:00 Outpatient R SONYA QUICK [facility] [id number] [facility] 2020-06-12 09:20:00 2020-06-12 09:20:00 Outpatient R CIELO KONG [facility] [id number] [facility] 2020-06-12 07:00:54 2020-06-12 07:20:54 Telemedici ne [facility] CARE PAV[facility] 1..840.114 350.1.13.10 4.2.7.2.686 [id number] [facility] 2020-06-11 00:00:00 2020-06-11 00:00:00 Telephone Linda Chappell [facility] 1..840.114 350.1.13.10 4.2.7.2.686 [id number] [facility] 2020-06-09 15:30:00 2020-06-09 15:30:00 Outpatient R MARCY WILLETT [facility] [id number] [facility] 2020-06-09 15:30:00 2020-06-09 15:30:00 Outpatient R MARCY WILLETT [facility] [id number] [facility] 2020-06-09 15:30:00 2020-06-09 15:30:00 Outpatient R [facility] [id number] [facility] 2020-06-09 00:00:00 2020-06-09 00:00:00 Orders Only Doctor Unassigned, [place] [facility] 1.2.840.114 350.1.13.10 4.2.7.2.686 [id number] [facility] 2020-06-06 00:00:00 2020-06-06 00:00:00 Nikhil Nunez [facility] PRIMARY CARE PAVILLION 1.2.840.114 350.1.13.10 4.2.7.2.686 [id number] [facility] 2020-06-05 14:05:39 2020-06-05 14:27:40 Office Visit Quinn Damon [facility] 1.2.840.114 350.1.13.10 4.2.7.2.686 [id number] [facility] 2020-06-05 13:07:21 2020-06-05 14:27:29 Imm/Inj Visit Quinn Damon [facility] MULTISPEC [facility]ALTY [facility] 1.2840.114 350.1.13.10 4.2.7.2.686 [id number] [facility] 2020-06-05 13:15:00 2020-06-05 13:15:00 Outpatient R QUINN DAMON [facility] [id number] [facility] 2020-06-05 00:00:00 2020-06-05 00:00:00 Patient Secure Msg Doctor Unassigned, [place] [facility] 1.2.840.114 350.1.13.10 4.2.7.2.686 [id number] [facility] 2020-06-05 00:00:00 2020-06-05 00:00:00 Telephone Anatoly Ramos [facility] Medical Office Building 1.2840.114 350.1.13.10 4.2.7.2.686 [id number] 059 [id number] [facility] 2020-06-04 00:00:00 2020-06-04 00:00:00 Case Management Linda Chappell [facility] 1.2840.114 350.1.13.10 4.2.7.2.686 [id number] [facility] 2020-06-03 09:34:58 2020-06-03 15:18:14 Office Visit Sonya Quick [facility] 1.840.114 350.1.13.10 4.2.7.2.686 [id number] [facility] 2020-06-03 11:30:00 2020-06-03 11:30:00 Outpatient R SONYA QUICK [facility] [id number] [facility] 2020-06-03 10:00:00 2020-06-03 10:00:00 Outpatient SONYA ROBERTO [facility] [id number] [facility] 2020-06-03 00:00:00 2020-06-03 00:00:00 Orders Only Doctor Unassigned, [place] [facility] 1.2840.114 350.1.13.10 4.2.7.2.686 [id number] [facility] 2020-06-02 11:19:29 2020-06-02 12:31:31 Office Visit Anatoly Ramos [facility] Medical Office Building 1.2840.114 350.1.13.10 4.2.7.2.686 [id number] [facility] 2020-06-02 11:30:00 2020-06-02 11:30:00 Outpatient ANATOLY RAMIREZ [facility] [id number] [facility] 2020-05-30 11:06:37 2020-05-30 11:21:37 Purchasing Buyer Visit Pcp-Lab Unknown, Attending [facility] PRIMARY CARE PAVILLION 1.2840.114 350.1.13.10 4.2.7.2.686 [id number] [facility] 2020-05-30 09:47:09 2020-05-30 10:07:09 Office Visit Lloyd Loza Rp [facility] 1.2.840.114 350.1.13.10 4.2.7.2.686 [id number] [facility] 2020-05-30 10:00:00 2020-05-30 10:00:00 Outpatient R LLOYD LOZA [facility] [id number] [facility] 2020-05-28 11:00:00 2020-05-28 11:00:00 Outpatient JORGE AVERY [facility] [id number] [facility] 2020-05-24 00:00:00 2020-05-24 00:00:00 Patient Outreach Jorge Ferrari [facility] PRIMARY CARE PAVILLION 1..840.114 350.1.13.10 4.2.7.2.686 [id number] [facility] 2020-05-23 00:00:00 2020-05-23 00:00:00 Patient Secure Msg Lloyd Loza Rp BUILDING 1.2.840.114 350.1.13.10 4.2.7.2.686 [id number] 080 [id number] [facility] 2020-05-23 00:00:00 2020-05-23 00:00:00 Patient Secure Msg Lloyd Loza [facility] 1.0.114 350.1.13.10 4.2.7.2.686 [id number] 053 [id number] [facility] 2020-05-14 00:00:00 2020-05-14 00:00:00 Patient Secure Msg Mao [facility] 1.0.114 350.1.13.10 4.2.7.2.686 [id number] [facility] 2020-05-08 15:19:31 2020-05-08 15:34:31 Imm/Inj Visit Quinn Damon [facility] 1..114 350.1.13.10 4.2.7.2.686 [id number] [facility] 2020-05-08 15:30:00 2020-05-08 15:30:00 Outpatient R QUINN DAMON [facility] [id number] [facility] 2020-05-08 00:00:00 2020-05-08 00:00:00 Orders Only Doctor Unassigned, [place] [facility] 1..114 350.1.13.10 4.2.7.2.686 [id number] [facility] 2020-04-18 00:00:00 2020-04-18 00:00:00 Patient Secure Jacob Mao [facility] 1..114 350.1.13.10 4.2.7.2.686 [id number] [facility] 2020-04-14 11:15:00 2020-04-14 11:15:00 Outpatient R DAYLIN JACOB [facility] [id number] [facility] 2020-04-14 07:46:37 2020-04-14 08:01:37 Telemedici ne Visit Jacob Mao [facility] 1..114 350.1.13.10 4.2.7.2.686 [id number] [facility] 2020-04-14 00:00:00 2020-04-14 00:00:00 Javi DíazFormerly [facility] 1.2840.114 350.1.13.10 4.2.7.2.686 [id number] [id number] [facility] 2020-04-12 00:00:00 2020-04-12 00:00:[address] [facility] Medical Office Building 1..114 350.1.13.10 4.2.7.2.686 [id number] [facility] 2020-04-10 11:15:00 2020-04-10 11:15:00 Outpatient R QUINN DAMON [facility] [id number] [facility] 2020-04-10 10:52:58 2020-04-10 11:07:58 [facility] 1..114 350.1.13.10 4.2.7.2.686 [id number] [facility] 2020-04-03 14:02:53 2020-04-03 14:17:53 [facility] 1..114 350.1.13.10 4.2.7.2.686 [id number] [facility] 2020-04-03 14:15:00 2020-04-03 14:15:00 Outpatient R QUINN DAMON [facility] [id number] [facility] 2020-04-03 12:53:09 2020-04-03 13:53:09 Office Visit Jacob Mao 2, Lilo Mda Procedure [facility] 1.114 350.1.13.10 4.2.7.2.686 [id number] [facility] 2020-04-02 09:54:06 2020-04-02 10:50:31 Office Visit Kaylyn Manriquez [facility] 1.114 350.1.13.10 4.2.7.2.686 [id number] [facility] 2020-04-02 10:00:00 2020-04-02 10:00:00 Outpatient R HODA MANRIQUEZOJA [facility] [id number] [facility] 2020-03-25 09:08:32 2020-03-25 23:59:00 Hospital Encounter Jacob Mao [facility] 1.114 350.1.13.10 4.2.7.2.686 [id number] [facility] 2020-03-25 09:08:32 2020-03-25 23:59:00 Outpatient R JACOB MAO [facility] [id number] [facility] 2020-03-25 00:00:00 2020-03-25 00:00:00 Outpatient R JACOB MAO [facility] [id number] [facility] 2020-03-11 10:43:06 2020-03-11 14:19:24 Office Visit Sonya Quick [facility] 1.114 350.1.13.10 4.2.7.2.686 [id number] [facility] 2020-03-11 11:00:00 2020-03-11 11:00:00 Outpatient R SONYA QUICK [facility] [id number] [facility] 2020-03-11 00:00:00 2020-03-11 00:00:00 Telephone Elissa Campos [facility] 1.114 350.1.13.10 4.2.7.2.686 [id number] [facility] 2020-03-11 00:00:00 2020-03-11 00:00:00 Telephone Martell Fontenot [facility] 1.2840.114 350.1.13.10 4.2.7.2.686 [id number] [facility] 2020-03-11 00:00:00 2020-03-11 00:00:00 Patient Secure Msg Lloyd Loza Rp [facility] 1.0.114 350.1.13.10 4.2.7.2.686 [id number] [facility] 2020-03-10 00:00:00 2020-03-10 00:00:00 Case Management Gibran Chappell [facility] 1.840.114 350.1.13.10 4.2.7.2.686 [id number] [facility] 2020-03-10 00:00:00 2020-03-10 00:00:00 [facility] 1.840.114 350.1.13.10 4.2.7.2.686 [id number] [facility] 2020-03-07 11:41:28 2020-03-07 12:01:28 Office Visit Lloyd Loza [facility] 1.0.114 350.1.13.10 4.2.7.2.686 [id number] [facility] 2020-03-07 12:00:00 2020-03-07 12:00:00 Outpatient R LLOYD LOZA [facility] [id number] [facility] 2020-03-06 00:00:00 2020-03-06 00:00:00 Patient Secure Msg Doctor Unassigned, [place] [facility] 1.0.114 350.1.13.10 4.2.7.2.686 [id number] [facility] 2020-02-28 00:00:00 2020-02-28 00:00:00 Telephone Kamlesh Duncan [facility] 1.2.840.114 350.1.13.10 4.2.7.2.686 [id number] [facility] 2020-02-28 00:00:00 2020-02-28 00:00:00 Refcathy Nazario Scott [facility] 1.2.840.114 350.1.13.10 4.2.7.2.686 [id number] 059 [id number] [facility] 2020-02-28 00:00:00 2020-02-28 00:00:00 Anatoly Díaz [facility] 1.2.840.114 350.1.13.10 4.2.7.2.686 [id number] [id number] [facility] 2020-02-28 00:00:00 2020-02-28 00:00:00 Telephone Doctor Unassigned, [place] [facility] PRIMARY CARE PAVILLION 1.2.840.114 350.1.13.10 4.2.7.2.686 [id number] [facility] 2020-02-27 00:00:00 2020-02-27 00:00:00 Case Management Fercho Vivas [facility] 1.2.840.114 350.1.13.10 4.2.7.2.686 [id number] [id number] [facility] 2020-02-22 00:00:00 2020-02-22 00:00:00 Patient Secure Msg Doctor Unassigned, [place] [facility] 1.2.840.114 350.1.13.10 4.2.7.2.686 [id number] [facility] 2020-02-21 11:00:00 2020-02-21 11:00:00 Outpatient R JACOB MAO [facility] [id number] [facility] 2020-02-21 09:33:50 2020-02-21 09:48:50 Telemedici ne Visit Jacob Mao [facility] 1.114 350.1.13.10 4.2.7.2.686 [id number] [facility] 2020-02-19 15:36:16 2020-02-19 23:59:00 Hospital Encounter Lloyd Loza Rp [facility] 1.114 350.1.13.10 4.2.7.2.686 [id number] [facility] 2020-02-19 15:36:16 2020-02-19 23:59:00 [facility] [id number] 2020-02-19 00:00:00 2020-02-19 00:00:00 Outpatient R DAGO [facility] [id number] [facility] 2020-02-14 12:52:29 2020-02-14 13:07:29 Office Visit Quinn Damon [facility] 1.114 350.1.13.10 4.2.7.2.686 [id number] [facility] 2020-02-14 13:00:00 2020-02-14 13:00:00 Outpatient R QUINN DAMON [facility] [id number] [facility] 2020-02-04 00:00:00 2020-02-04 00:00:00 Nazario Robledo [facility] 1..114 350.1.13.10 4.2.7.2.686 [id number] [facility] 2020-02-04 00:00:00 2020-02-04 00:00:00 Nazario Robledo [facility] 1.2840.114 350.1.13.10 4.2.7.2.686 [id number] [facility] 2020-01-31 09:07:18 2020-02-01 11:41:56 Nurse Visit 2, [facility] Adult Infusion Nurse Lloyd Loza Rp [facility] 1.840.114 350.1.13.10 4.2.7.2.686 [id number] [facility] 2020-01-31 10:00:00 2020-01-31 10:00:00 Outpatient LLOYD FRAZIER [facility] [id number] [facility] 2020-01-29 10:18:55 2020-01-29 10:33:55 Purchasing Buyer Visit Pcp-Lab Lloyd Loza Rp [facility] 1.840.114 350.1.13.10 4.2.7.2.686 [id number] [facility] 2020-01-29 10:30:00 2020-01-29 10:30:00 Outpatient R LLOYD LOZA [facility] [id number] [facility] 2020-01-25 10:00:29 2020-01-28 12:06:41 Nurse Visit 2, [facility] Adult Infusion Nurse Lloyd Loza Rp [facility] 1.0.114 350.1.13.10 4.2.7.2.686 [id number] [facility] 2020-01-25 09:12:06 2020-01-25 09:57:43 [facility] 1.2840.114 350.1.13.10 4.2.7.2.686 [id number] [facility] 2020-01-25 09:20:00 2020-01-25 09:20:00 Outpatient R LLOYD LOZA [facility] [id number] [facility] 2020-01-25 00:00:00 2020-01-25 00:00:00 Patient Secure Msg Doctor Unassigned, [place] [facility] 1..114 350.1.13.10 4.2.7.2.686 [id number] [facility] 2020-01-24 08:18:25 2020-01-24 11:18:25 Nurse Visit 2, [facility]..114 350.1.13.10 4.2.7.2.686 [id number] [facility] 2020-01-24 08:30:00 2020-01-24 08:30:00 Outpatient R LLOYD LOZA [facility] [id number] [facility] 2020-01-23 00:00:00 2020-01-23 00:00:00 Refill Doctor Unassigned, [place] [facility] [facility] 1.114 350.1.13.10 4.2.7.2.686 [id number] [facility] 2020-01-22 15:30:00 2020-01-22 15:30:00 Outpatient LLOYD FRAZIER [facility] [id number] [facility] 2020-01-22 15:09:11 2020-01-22 15:24:11 Purchasing Buyer Visit Pob, Adc Lab Main Lloyd Loza [facility] 1.114 350.1.13.10 4.2.7.2.686 [id number] [facility] 2020-01-10 08:59:13 2020-01-10 10:59:13 Nurse Visit 2, [facility] Adult Infusion Nurse Lloyd Loza [facility] 1..114 350.1.13.10 4.2.7.2.686 [id number] [id number] [facility] 2020-01-10 10:00:00 2020-01-10 10:00:00 [facility] [id number] [facility] 2020-01-10 08:28:01 2020-01-10 08:53:30 Purchasing Buyer Visit [facility] Lloyd Loza [facility] 1..114 350.1.13.10 4.2.7.2.686 [id number] [facility] 2020-01-04 13:17:55 2020-01-09 13:27:44 Nurse Visit 2, [facility]..114 350.1.13.10 4.2.7.2.686 [id number] [facility] 2020-01-04 13:30:00 2020-01-04 13:30:00 Outpatient Yo LOZA ELOLidia [facility] [id number] [facility] 2020-01-03 12:52:17 2020-01-03 14:13:52 Office Visit Quinn Damon [facility] 1.114 350.1.13.10 4.2.7.2.686 [id number] [facility] 2020-01-03 13:15:00 2020-01-03 13:15:00 Outpatient QUINN BHATTI [facility] [id number] [facility] 2020-01-03 07:59:23 2020-01-03 10:59:23 Nurse Visit 3, [facility] 1..114 350.1.13.10 4.2.7.2.686 [id number] [facility] 2020-01-02 11:00:00 2020-01-02 11:00:00 Outpatient ELISSA DALEY [facility] [id number] [facility] 2020-01-02 06:58:01 2020-01-02 07:28:01 Telemedici ne Visit Elissa Campos [facility] 1.2.840.114 350.1.13.10 4.2.7.2.686 [id number] [facility] 2020-01-02 00:00:00 2020-01-02 00:00:00 Refill Jesse Duncan [facility] 1.2.840.114 350.1.13.10 4.2.7.2.686 [id number] [id number] [facility] 2020-01-02 00:00:00 2020-01-02 00:00:00 Refill Nazario Scott [facility] 1.2.840.114 350.1.13.10 4.2.7.2.686 [id number] [id number] [facility] 2020-01-02 00:00:00 2020-01-02 00:00:00 Refill Jesse Duncan [facility] 1.2.840.114 350.1.13.10 4.2.7.2.686 [id number] [id number] [facility] 2020-01-02 00:00:00 2020-01-02 00:00:00 Refill Nazario Scott [facility] 1.2.840.114 350.1.13.10 4.2.7.2.686 [id number] 059 [id number] [facility] 2019-12-31 10:31:03 2019-12-31 12:26:50 Office Visit Lloyd Loza [facility] 1.2840.114 350.1.13.10 4.2.7.2.686 [id number] [facility] 2019-12-31 12:00:00 2019-12-31 12:00:00 Outpatient R LLOYD LOZA [facility] [id number] [facility] 2019-12-31 11:23:18 2019-12-31 11:33:18 Purchasing Buyer Visit [facility] Lloyd Loza [facility] 1.2.840.114 350.1.13.10 4.2.7.2.686 [id number] [facility] 2019-12-20 10:56:18 2019-12-20 12:56:18 Nurse Visit 2, [facility] 1.2.840.114 350.1.13.10 4.2.7.2.686 [id number] [id number] [facility] 2019-12-20 11:00:00 2019-12-20 11:00:00 Outpatient Yo LOZA [facility] [id number] [facility] 2019-12-17 10:23:10 2019-12-17 10:33:10 Purchasing Buyer Visit Pcp-Kamlesh Low [facility] 1.2.840.114 350.1.13.10 4.2.7.2.686 [id number] [facility] 2019-12-17 10:30:00 2019-12-17 10:30:00 Outpatient KAMLESH LUQUE [facility] [id number] [facility] 2019-12-14 11:14:30 2019-12-14 12:44:30 Nurse Visit 3, [facility] 1.2.840.114 350.1.13.10 4.2.7.2.686 [id number] [facility] 2019-12-14 11:30:00 2019-12-14 11:30:00 Outpatient Yo LOZA ELOLidia [facility] [id number] [facility] 2019-12-14 00:00:00 2019-12-14 00:00:00 Patient Secure Msg Quinn Damon [facility] [employer] [facility] BLDG. 1..114 350.1.13.10 4.2.7.2.686 [id number] [facility] 2019-12-13 08:47:55 2019-12-13 11:47:55 Nurse Visit 2, [facility] Adult Infusion Nurse Lloyd Loza Rp [facility] 1..114 350.1.13.10 4.2.7.2.686 [id number] 053 [id number] [facility] 2019-12-13 09:00:00 2019-12-13 09:00:00 Outpatient R LLOYD LOZA [facility] [id number] [facility] 2019-12-12 00:00:00 2019-12-12 00:00:00 Case Management Lloyd Loza [facility] 1..114 350.1.13.10 4.2.7.2.686 [id number] [id number] [facility] 2019-12-10 10:30:00 2019-12-10 10:30:00 Outpatient R UNKNOWN, ATTENDING [facility] [id number] [facility] 2019-12-10 10:18:40 2019-12-10 10:28:40 Purchasing Buyer Visit Pcp-Lab Unknown, Attending [facility] 1..114 350.1.13.10 4.2.7.2.686 [id number] [facility] 2019-12-10 00:00:00 2019-12-10 00:00:00 Patient [facility] 1.2.114 350.1.13.10 4.2.7.2.686 [id number] 080 [id number] [facility] 2019-12-03 10:23:19 2019-12-03 14:24:26 Office Visit Lloyd Loza Rp [facility]ILD[facility] 1.2840.114 350.1.13.10 4.2.7.2.686 [id number] [facility] 2019-12-03 10:40:00 2019-12-03 10:40:00 Outpatient R LLOYD LOZA [facility] [id number] [facility] 2019-12-03 00:00:00 2019-12-03 00:00:00 Refill Anatoly Ramos [facility] 1..114 350.1.13.10 4.2.7.2.686 [id number] [facility] 2019-11-27 07:52:16 2019-12-01 15:18:20 [facility]medici ne [facility]..114 350.1.13.10 4.2.7.2.686 [id number] [id number] [facility] 2019-11-30 00:00:00 2019-11-30 00:00:00 Refill Doctor Unassigned, [place] [facility] 1.114 350.1.13.10 4.2.7.2.686 [id number] [facility] 2019-11-29 14:45:00 2019-11-29 14:45:00 Outpatient R QUINN DAMON [facility] [id number] [facility] 2019-11-29 14:00:35 2019-11-29 14:15:35 Imm/Inj Visit [facility] Dam[facility] 1.114 350.1.13.10 4.2.7.2.686 [id number] [facility] 2019-11-29 08:32:54 2019-11-29 10:02:54 Nurse Visit 3, [facility] Adult Infusion Nurse Lloyd Loza [facility] 1.2.840.114 350.1.13.10 4.2.7.2.686 [id number] [id number] [facility] 2019-11-29 00:00:00 2019-11-29 00:00:00 Orders Only Doctor Unassigned, [place] [facility] 1.2840.114 350.1.13.10 4.2.7.2.686 [id number] [facility] 2019-11-29 00:00:00 2019-11-29 00:00:00 Refill Nazario Scott [facility] 1..114 350.1.13.10 4.2.7.2.686 [id number] 059 [id number] [facility] 2019-11-27 09:58:26 2019-11-27 10:08:26 Purchasing Buyer Visit Pcp-Lab Unknown, Attending Lloyd Loza [facility] PRIMARY CARE PAVILLION 1.114 350.1.13.10 4.2.7.2.686 [id number] [facility] 2019-11-27 09:00:00 2019-11-27 09:00:00 Outpatient LINDA PIERRE [facility] [id number] [facility] 2019-11-23 11:19:09 2019-11-26 12:00:23 Nurse Visit 3, [facility] Adult Infusion Nurse Lloyd Loza [facility] 1..114 350.1.13.10 4.2.7.2.686 [id number] 053 [id number] [facility] 2019-11-23 11:30:00 2019-11-23 11:30:00 Outpatient LLOYD FRAZIER [facility] [id number] [facility] 2019-11-22 10:59:41 2019-11-22 14:59:41 Nurse Visit 3, [facility] Adult Infusion Nurse Lloyd Loza [facility] 1..114 350.1.13.10 4.2.7.2.686 [id number] 053 [id number] [facility] 2019-11-22 11:30:00 2019-11-22 11:30:00 Outpatient R LLOYD LOZA [facility] [id number] [facility] 2019-11-22 00:00:00 2019-11-22 00:00:00 Orders Only Doctor Unassigned, [place] [facility] 1..114 350.1.13.10 4.2.7.2.686 [id number] [id number] [facility] 2019-11-21 00:00:00 2019-11-21 00:00:00 Elissa Henry [facility] 1.114 350.1.13.10 4.2.7.2.686 [id number] 084 [id number] [facility] 2019-11-20 12:00:00 2019-11-20 12:00:00 Outpatient R LINDA CHAPPELL [facility] [id number] [facility] 2019-11-20 11:00:00 2019-11-20 11:00:00 Outpatient ELISSA DALEY [facility] [id number] [facility] 2019-11-20 09:57:55 2019-11-20 10:22:24 Purchasing Buyer Visit Pcp-Lab Unknown, Attending [facility] 1.114 350.1.13.10 4.2.7.2.686 [id number] [facility] 2019-11-20 10:10:00 2019-11-20 10:10:00 Outpatient R UNKNOWN, ATTENDING [facility] [id number] [facility] 2019-11-20 00:00:00 2019-11-20 00:00:00 Case Management Lloyd Loza [facility] 1.114 350.1.13.10 4.2.7.2.686 [id number] [id number] [facility] 2019-11-19 00:00:00 2019-11-19 00:00:00 Telephone [facility] 1.840.114 350.1.13.10 4.2.7.2.686 [id number] [id number] [facility] 2019-11-17 00:00:00 2019-11-17 00:00:00 Patient Secure Msg [facility] 1.2840.114 350.1.13.10 4.2.7.2.686 [id number] 084 [id number] [facility] 2019-11-16 00:00:00 2019-11-16 00:00:00 Patient Secure Msg Doctor Unassigned, [place] JASON rDiver [facility] 1.840.114 350.1.13.10 4.2.7.2.686 [id number] 080 [id number] [facility] 2019-11-16 00:00:00 2019-11-16 00:00:00 [facility] 1.840.114 350.1.13.10 4.2.7.2.686 [id number] 053 [id number] [facility] 2019-11-16 00:00:00 2019-11-16 00:00:00 Refill Doctor Unassigned, [place] [facility] 1..114 350.1.13.10 4.2.7.2.686 [id number] [id number] [facility] 2019-11-14 10:15:00 2019-11-14 10:15:00 Outpatient R LLOYD LOZA [facility] [id number] [facility] 2019-11-14 10:01:27 2019-11-14 10:12:09 Purchasing Buyer Visit [facility] Lloyd Loza [facility] 1..114 350.1.13.10 4.2.7.2.686 [id number] [facility] 2019-11-13 00:00:00 2019-11-13 00:00:00 Refill Doctor Unassigned, [place] [facility] 1.2840.114 350.1.13.10 4.2.7.2.686 [id number] 044 [id number] [facility] 2019-11-12 00:00:00 2019-11-12 00:00:00 Patient Secure Msg Doctor Unassigned, [place] [facility] 1.2840.114 350.1.13.10 4.2.7.2.686 [id number] [id number] [facility] 2019-11-09 11:00:30 2019-11-09 12:14:38 Office Visit Lloyd Loza [facility] 1.20.114 350.1.13.10 4.2.7.2.686 [id number] [facility] 2019-11-09 11:20:00 2019-11-09 11:20:00 Outpatient R LLOYD LOZA [facility] [id number] [facility] 2019-11-08 00:00:00 2019-11-08 00:00:00 Refill Jesse Duncan [facility] 1.0.114 350.1.13.10 4.2.7.2.686 [id number] [facility] 2019-11-06 10:30:00 2019-11-06 10:30:00 Outpatient ELISSA DALEY [facility] [id number] [facility] 2019-11-02 00:00:00 2019-11-02 00:00:00 Orders Only Doctor Unassigned, [place] [facility] 1.2840.114 350.1.13.10 4.2.7.2.686 [id number] [facility] 2019-11-01 14:45:00 2019-11-01 14:45:00 Outpatient R QUINN DAMON [facility] [id number] [facility] 2019-11-01 14:21:26 2019-11-01 14:36:26 Imm/Inj Visit Quinn Dam[facility] 1.2840.114 350.1.13.10 4.2.7.2.686 [id number] [facility] 2019-11-01 00:00:00 2019-11-01 00:00:00 Orders Only Doctor Unassigned, [place] [facility] 1.20.114 350.1.13.10 4.2.7.2.686 [id number] [facility] 2019-10-25 10:54:13 2019-10-29 13:46:18 Office Visit Mia Salazar [facility] 1.2.114 350.1.13.10 4.2.7.2.686 [id number] [facility] 2019-10-29 00:00:00 2019-10-29 00:00:00 Patient Secure Jacob Elena [facility] 1.2.114 350.1.13.10 4.2.7.2.686 [id number] [facility] 2019-10-26 07:50:00 2019-10-26 23:59:00 Hospital Encounter Lloyd Loza [facility] 1.2.114 350.1.13.10 4.2.7.2.686 [id number] [facility] 2019-10-26 07:49:02 2019-10-26 07:49:00 Outpatient R LLOYD LOZA [facility] [id number] [facility] 2019-10-26 07:49:00 2019-10-26 07:49:00 Hospital Encounter Lloyd Loza [facility] 1.2840.114 350.1.13.10 4.2.7.2.686 [id number] [facility] 2019-10-25 11:00:00 2019-10-25 11:00:00 Outpatient R MIA SALAZAR [facility] [id number] [facility] 2019-10-23 00:00:00 2019-10-23 00:00:00 Orders Only Doctor Unassigned, [place] [facility] 1.2.840.114 350.1.13.10 4.2.7.2.686 [id number] [facility] 2019-10-19 10:34:02 2019-10-19 10:49:02 Purchasing Buyer Visit [facility] Lloyd Loza [facility] 1.840.114 350.1.13.10 4.2.7.2.686 [id number] [facility] 2019-10-19 09:20:00 2019-10-19 09:20:00 Outpatient R LLOYD LOZA [facility] [id number] [facility] 2019-10-19 00:00:00 2019-10-19 00:00:00 Orders Only Doctor Unassigned, [place] [facility] 1.2840.114 350.1.13.10 4.2.7.2.686 [id number] [facility] 2019-10-18 14:49:16 2019-10-18 15:04:16 Telemedici ne Visit Jacob Mao [facility] 1.840.114 350.1.13.10 4.2.7.2.686 [id number] [facility] 2019-10-18 15:00:00 2019-10-18 15:00:00 Outpatient R JACOB MAO [facility] [id number] [facility] 2019-10-16 11:33:32 2019-10-17 14:27:00 [facility]40.114 350.1.13.10 4.2.7.2.686 [id number] [facility] 2019-10-16 00:00:00 2019-10-16 00:00:00 Orders Only Doctor Unassigned, [place] [facility] 1.2840.114 350.1.13.10 4.2.7.2.686 [id number] [facility] 2019-10-15 12:39:27 2019-10-15 12:54:27 Laboratory Only Only, Pcp Test Jacob Mao [facility] 1.2840.114 350.1.13.10 4.2.7.2.686 [id number] [facility] 2019-10-15 12:45:00 2019-10-15 12:45:00 Outpatient R JACOB MAO [facility] [id number] [facility] 2019-10-12 00:00:00 2019-10-12 00:00:00 Patient Secure Msg Doctor Unassigned, [place] [facility] 1.20.114 350.1.13.10 4.2.7.2.686 [id number] [facility] 2019-10-11 15:01:54 2019-10-11 23:59:00 Outpatient R JACOB MAO [facility] [id number] [facility] 2019-10-11 15:01:00 2019-10-11 23:59:00 Hospital Encounter Jacob Mao [facility] 1.840.114 350.1.13.10 4.2.7.2.686 [id number] [facility] 2019-10-11 14:29:22 2019-10-11 15:01:41 Office Visit Jacob Mao [facility] 1.2840.114 350.1.13.10 4.2.7.2.686 [id number] [facility] 2019-10-11 14:45:00 2019-10-11 14:45:00 Outpatient R JACOB MAO [facility] [id number] [facility] 2019-10-11 13:00:00 2019-10-11 13:00:00 Outpatient R ANASTASIA NUNEZ [facility] [id number] [facility] 2019-10-09 00:00:00 2019-10-09 00:00:00 Case Management Tuan Jordan [facility] 1.84.114 350.1.13.10 4.2.7.2.686 [id number] [facility] 2019-10-04 13:37:24 2019-10-04 13:52:24 Imm/Inj Visit Quinn Damon [facility] 1.84.114 350.1.13.10 4.2.7.2.686 [id number] [facility] 2019-10-04 10:45:00 2019-10-04 10:45:00 Outpatient R QUINN DAMON [facility] [id number] [facility] 2019-10-01 08:30:00 2019-10-01 08:30:00 Outpatient R ANASTASIA NUNEZ [facility] [id number] [facility] 2019-09-27 09:46:51 2019-09-27 12:00:10 Office Visit Quinn Damon [facility] 1..114 350.1.13.10 4.2.7.2.686 [id number] [facility] 2019-09-27 09:45:00 2019-09-27 09:45:00 Outpatient R QUINN DAMON [facility] [id number] [facility] 2019-09-21 13:03:56 2019-09-21 14:02:49 Office Visit Anastasia Nunez Rm, Adc Surg Spec Procedure [facility] 1.2.840.114 350.1.13.10 4.2.7.2.686 [id number] [facility] 2019-09-21 13:00:00 2019-09-21 13:00:00 Outpatient R ANASTASIA NUNEZ [facility] [id number] [facility] 2019-09-20 13:33:26 2019-09-20 23:59:00 Outpatient R PRACHI BERG [facility] [id number] [facility] 2019-09-20 13:33:00 2019-09-20 23:59:00 Hospital Encounter Prachi Berg [facility] 1.2840.114 350.1.13.10 4.2.7.2.686 [id number] [facility] 2019-09-20 00:00:00 2019-09-20 00:00:00 Outpatient R PRACHI BERG [facility] [id number] [facility] 2019-09-20 00:00:00 2019-09-20 00:00:00 Telephone Prachi Berg [facility] 1.2.840.114 350.1.13.10 4.2.7.2.686 [id number] [facility] 2019-09-14 00:00:00 2019-09-14 00:00:00 Telephone Prachi Berg [facility] 1.2.840.114 350.1.13.10 4.2.7.2.686 [id number] [facility] 2019-09-12 12:42:39 2019-09-12 13:55:40 Office Visit Prachi Berg [facility] 1.2.840.114 350.1.13.10 4.2.7.2.686 [id number] [facility] 2019-09-12 13:00:00 2019-09-12 13:00:00 Outpatient R PRACHI BERG [facility] [id number] [facility] 2019-09-07 13:12:31 2019-09-07 14:59:32 Urgent Care Tara Richards-Nam Unknown, Attending [facility] 1.2840.114 350.1.13.10 4.2.7.2.686 [id number] [facility] 2019-09-07 10:00:00 2019-09-07 10:00:00 Outpatient R VIVIANA CORDOVA [facility] [id number] [facility] 2019-09-07 07:36:42 2019-09-07 08:06:42 Telemedici ne Visit Viviana Cordova [facility] 1.840.114 350.1.13.10 4.2.7.2.686 [id number] [facility] 2019-09-07 00:00:00 2019-09-07 00:00:00 Telephone Kamlesh Duncan [facility] nal Building 1.2840.114 350.1.13.10 4.2.7.2.686 [id number] [facility] 2019-08-20 00:00:00 2019-08-20 00:00:00 Refill Anatoly Ramos [facility] Medical Office Building 1.2840.114 350.1.13.10 4.2.7.2.686 [id number] [facility] 2019-08-20 00:00:00 2019-08-20 00:00:00 RefJesse Rios [facility] 1.2840.114 350.1.13.10 4.2.7.2.686 [id number] [facility] 2019-08-16 08:18:16 2019-08-16 15:48:15 Office Visit Quinn Damon Yaw [facility] 1.84.114 350.1.13.10 4.2.7.2.686 [id number] [facility] 2019-08-16 08:30:00 2019-08-16 08:30:00 Outpatient R QUINN DAMON [facility] [id number] [facility] 2019-08-03 11:00:00 2019-08-03 11:00:00 Outpatient R NIKHIL JUAREZ [facility] [id number] [facility] 2019-08-03 00:00:00 2019-08-03 00:00:00 Telephone Kofi Quinn Gonzales Yaw [facility] [employer] BLDG. 1..840.114 350.1.13.10 4.2.7.2.686 [id number] [facility] 2019-07-11 12:55:10 2019-07-11 14:02:50 Imm/Inj Visit Kofi Quinn Gonzales Yaw [facility] [employer] [facility] BLDG. 1..840.114 350.1.13.10 4.2.7.2.686 [id number] [facility] 2019-07-11 13:00:00 2019-07-11 13:00:00 Outpatient R QUINN DAMON [facility] [id number] [facility] 2019-07-11 00:00:00 2019-07-11 00:00:00 Orders Only Doctor Unassigned, [place] [facility] 1.840.114 350.1.13.10 4.2.7.2.686 [id number] [facility] 2019-06-29 09:53:55 2019-06-29 23:59:00 Outpatient R NIKHIL JUAREZ [facility] [id number] [facility] 2019-06-29 09:53:00 2019-06-29 23:59:00 Hospital Encounter Nikhil Juarez [facility] 1.2.840.114 350.1.13.10 4.2.7.2.686 [id number] [facility] 2019-06-29 10:21:34 2019-06-29 10:31:34 Purchasing Buyer Visit Pcp-Lab Unknown, Attending [facility] 1.2.840.114 350.1.13.10 4.2.7.2.686 [id number] [facility] 2019-06-29 09:53:55 2019-06-29 09:53:55 Outpatient R NIKHIL JUAREZ [facility] [id number] [facility] 2019-06-28 14:13:07 2019-06-28 16:58:11 Office Visit Anatoly Ramos [facility] 1.2.840.114 350.1.13.10 4.2.7.2.686 [id number] [facility] 2019-06-28 14:30:00 2019-06-28 14:30:00 Outpatient R ANATOLY RAMOS [facility] [id number] [facility] 2019-06-22 10:41:08 2019-06-22 12:30:17 [facility] 1.2.840.114 350.1.13.10 4.2.7.2.686 [id number] [facility] 2019-06-21 14:37:27 2019-06-22 07:24:54 Office Visit Raffi Brewer [facility] 1.2.840.114 350.1.13.10 4.2.7.2.686 [id number] [facility] 2019-06-21 14:55:25 2019-06-21 23:59:00 Outpatient R RAFFI BREWER [facility] [id number] [facility] 2019-06-21 14:55:25 2019-06-21 23:59:00 Outpatient R RAFFI BREWER [facility] [id number] [facility] 2019-06-21 14:55:00 2019-06-21 23:59:00 Hospital Encounter Raffi Brewer [facility] 1..840.114 350.1.13.10 4.2.7.2.686 [id number] [facility] 2019-06-21 00:00:00 2019-06-21 00:00:00 Abstract Daylin Carlton [facility] 1.840.114 350.1.13.10 4.2.7.2.686 [id number] [facility] 2019-06-13 13:00:00 2019-06-13 13:48:21 Outpatient R QUINN DAMON [facility] [id number] [facility] 2019-06-13 12:47:18 2019-06-13 13:48:21 Imm/Inj Visit Quinn Damon [employer] [facility] 1..840.114 350.1.13.10 4.2.7.2.686 [id number] [facility] 2019-06-13 00:00:00 2019-06-13 00:00:00 Orders Only Doctor Unassigned, [place] [facility] 1.840.114 350.1.13.10 4.2.7.2.686 [id number] [facility] 2019-05-15 15:15:00 2019-05-15 14:21:44 Outpatient R QUINN DAMON [facility] [id number] [facility] 2019-05-15 13:49:29 2019-05-15 14:21:44 Imm/Inj Visit Quinn Damon [employer] [facility] 1.2840.114 350.1.13.10 4.2.7.2.686 [id number] [facility] 2019-05-15 12:58:50 2019-05-15 13:13:50 Office Visit Kofi Domingonica Dewayneeugenio [facility] [employer] [facility]. 1.2.840.114 350.1.13.10 4.2.7.2.686 [id number] [facility] 2019-01-31 13:15:00 2019-01-31 13:47:58 Outpatient R KOFI GONZALES LIYAHITZEL [facility] [id number] [facility] 2019-01-03 15:00:00 2019-01-03 16:53:45 Outpatient R KOFI GONZALES LIYAHITZEL [facility] [id number] [facility] 2019-01-03 14:50:06 2019-01-03 16:53:45 Imm/Inj Visit Kofi Domingonica Dewayneeugenio [facility] [employer] [facility] 1..840.114 350.1.13.10 4.2.7.2.686 [id number] [facility] 2019-01-03 00:00:00 2019-01-03 00:00:00 Orders Only Doctor Unassigned, [place] [facility] 1.2840.114 350.1.13.10 4.2.7.2.686 [id number] [facility] 2018-12-18 00:00:00 2018-12-18 00:00:00 Refill Mia Salazar [facility] 1.2.114 350.1.13.10 4.2.7.2.686 [id number] [facility] 2018-12-06 16:34:56 2018-12-06 17:04:07 Imm/Inj Visit Kofi Quinn Gonzales [facility] [employer] [facility]. 1.2840.114 350.1.13.10 4.2.7.2.686 [id number] [facility] 2018-12-06 14:59:12 2018-12-06 17:03:59 Office Visit Quinn Damon [facility] [employer] [facility]. 1.2.840.114 350.1.13.10 4.2.7.2.686 [id number] [facility] 2018-12-06 00:00:00 2018-12-06 00:00:00 Orders Only Doctor Unassigned, [place] [facility] 1.2.840.114 350.1.13.10 4.2.7.2.686 [id number] [facility] 2018-11-03 08:15:00 2018-11-03 08:55:43 Outpatient ALESSANDRO ARSHAD [facility] [id number] [facility] 2018-10-31 14:15:00 2018-10-31 14:15:00 Outpatient QUINN BHATTI [facility] [id number] [facility] 2018-10-04 14:00:00 2018-10-04 14:37:16 Outpatient QUINN BHATTI [facility] [id number] [facility] 2018-09-06 14:00:00 2018-09-06 15:20:47 Outpatient QUINN BHATTI [facility] [id number] [facility] 2018-08-09 14:00:00 2018-08-09 14:55:25 Outpatient QUINN BHATTI [facility] [id number] [facility] 2018-05-10 14:00:00 2018-05-10 14:34:48 Outpatient QUINN BHATTI [facility] [id number] [facility] 2018-04-12 14:15:00 2018-04-12 15:07:50 Outpatient QUINN BHATTI [facility] [id number] [facility] 2018-03-15 14:30:00 2018-03-15 15:14:31 Outpatient QUINN BHATTI [facility] [id number] [facility] 2018-01-11 15:00:00 2018-01-11 15:37:01 Outpatient QUINN BHATTI [facility] [id number] [facility] 2017-12-14 15:15:00 2017-12-14 15:49:23 Outpatient QUINN BHATTI [facility] [id number] [facility] 2017-11-16 10:30:00 2017-11-16 12:14:27 Outpatient QUINN BHATTI [facility] [id number] [facility] 2017-08-31 13:45:00 2017-08-31 14:20:32 Outpatient QUINN BHATTI [facility] [id number] [facility] 2017-08-03 14:00:00 2017-08-03 15:09:46 Outpatient QUINN BHATTI [facility] [id number] [facility] 2017-06-22 15:00:00 2017-06-22 15:36:46 Outpatient QUINN BHATTI [facility] [id number] [facility] Results Test Description Test Time Test Comments Results Result Comments Source CT ABDOMEN PELVIS WO CONTRAST 2023-08 22:07:0 0 EXAM: CT ABDOMEN PELVIS WO CONTRAST HISTORY: 83 years-old Female; Provided indication: Flank pain, kidney stonesuspected hematuria . History independently obtained from [facility]: "urinary retention since thismorning ". History of bladder cancer status post chemoradiation completedin 2020. TECHNIQUE: Contiguous axial imaging from the level of the lung basesthrough the proximal thighs was performed without the intravenousadministration of contrast. Coronal and sagittal reconstructions wereobtained. COMPARISON: Multiple CTs of the abdomen and pelvis dating back to 09/20/2019with the most recent performed on 05/24/2022. Chest CT performed on06/09/2022. FINDINGS: . All image numbers will be for the axial series 201 unless otherwisespecified. Severe emphysematous changes are present. New solid nodules are noted inthe left lower lung such as on image 10 and image 13 while the 1.4 cmnodule on image 21 is larger from prior studies. The liver, gallbladder, biliary system, pancreas, spleen, adrenal glands,and kidneys have a grossly unremarkable noncontrast appearance. The gastrointestinal tract has no areas of obstruction, wall thickening, orabnormal dilatation. A moderate volume of stool is seen. A normal appendixis visualized on image 67. The urinary bladder is partially distended and layering hyperdensity isnoted. The left diverticulum is again seen. No obvious recurrent hyperdensemass is visualized along the left bladder wall where the prior malignancywas seen in 2020. Hysterectomy changes are noted. No adnexal mass is seen. No free air or focal fluid collection is visualized. Worsening retroperitoneal lymphadenopathy is annotated at multiple sites:1.3 cm on image 331.5 cm on image 461.4 cm at the bifurcation on image 621.3 cm after the bifurcation on image 69With the large known left external iliac lymph node now measuring over 3.5cm on image 87. The vasculature has severe diffuse atherosclerotic calcifications. No acuteosseous abnormality or suspicious osseous lesion is definitely seen. Thesoft tissues have no acute findings. [facility] XR CHEST 1 VW 2023-06 19:22:0 2 ORDERING PHYSICIAN: CAT SIMPSON CLINICAL HISTORY: soa TECHNIQUE: Single view of the chest TECHNICAL QUALITY: Diagnostic COMPARISON: 11/01/2022 FINDINGS: The lungs are clear. There is no pneumothorax or pleuraleffusion. The cardiac silhouette is stable in size. The aorta is atherosclerotic .The pulmonary vasculature is not increased. There are no acute osseous abnormalities. [id number] 11:36:46* Test Item Value Reference Range Interpretation Comme nts WBC (test code = 6690-2) 5.67 See_Comment [Automated [email or web address]] The system which generated this result transmitted reference range: 4.30 - 11.10 10*3/?L. The reference range was not used to interpret this result as normal/abnormal. RBC (test code = 789-8) 4.06 See_Comment [Automated [email or web address]] The system which generated this result transmitted reference range: 3.93 - 5.25 10*6/?L. The reference range was not used to interpret this result as normal/abnormal. HGB (test code = 718-7) 12.4 g/dL 11.6-15.0 HCT (test code = 4544-3) 38.3 % 35.7-45.2 MCV (test code = 787-2) 94.3 fL 80.6-95.5 MCH (test code = 785-6) 30.5 pg 25.9-32.8 MCHC (test code = 786-4) 32.4 g/dL 31.6-35.1 RDW-SD (test code = 59909-0) 55.0 fL 39.0-49.9 H RDW-CV (test code = 788-0) 15.9 % 12.0-15.5 H PLT (test code = 777-3) 174 See_Comment [Automated messa ge] The system which generated this result transmitted reference range: 166 - 358 10*3/?L. The reference range was not used to interpret this result as normal/abnormal. MPV (test code = 16830-8) 10.2 fL 9.5-12.9 NRBC/100 WBC (test code = 0451012111) 0.0 See_Comment [Automated Geosign ssage] The system which generated this result transmitted reference range: 0.0 - 10.0 /100 WBCs. The reference range was not used to interpret this result as normal/abnormal. NRBC x10^3 (test code = 4427515798) See_Comment [Automated [employer]] The system which generated this result transmitted reference range: 10*3/?L. The reference range was not used to interpret this result as normal/abnormal. GRAN MAT (NEUT) % (test code = 770-8) 69.5 % IMM GRAN % (test code = 0191750703) 0.40 % LYMPH % (test code = 736-9) 8.1 % MONO % (test code = 5905-5) 11.6 % EOS % (test code = 713-8) 9.7 % BASO % (test code = 706-2) 0.7 % GRAN MAT x10^3(ANC) (test code = 9202732901) 3.94 10*3/uL 1.88-7.09 IMM GRAN x10^3 (test code = 8570120647) 0.00-0.06 LYMPH x10^3 (test code = 731-0) 0.46 10*3/uL 1.32-3.29 L MONO x10^3 (test code = 742-7) 0.66 10*3/uL 0.33-0.92 EOS x10^3 (test code = 711-2) 0.55 10*3/uL 0.03-0.39 H BASO x10^3 (test code = 704-7) 0.04 10*3/uL 0.01-0.07 Lab Interpretation (test code = 72880-7) Abnormal [facility] METABOLIC PANEL (NA, K, CL, CO2, GLUCOSE, BUN, CREATININE, CA)2022-11-15 10:47:02* Test Item Value Reference Range Interpretation Comme nts NA (test code = 9207528741) 132 mmol/L 135-145 L K (test code = 0384732979) 3.9 mmol/L 3.5-5.0 CL (test code = 2070075549) 94 mmol/L 98-108 L CO2 TOTAL (test code = 7569263618) 34 mmol/L 23-31 H AGAP (test code = 5323926822) 4 2-16 BUN (test code = 7149519067) 16 mg/dL 7-23 GLUCOSE (test code = 8802996874) 100 mg/dL 70-110 CREATININE (test code = 1000116607) 0.75 mg/dL 0.50-1.04 CALCIUM (test code = 9761112733) 9.5 mg/dL 8.6-10.6 eGFR (test code = 7674863771) 74.4 mL/min/1.73m2 JENNIFER (test code = JENNIFER) Association of Glomerular Filtration Rate (GFR) and Staging of Kidney Disease* + --+ --+ ------+| GFR (mL/min/1.73 m2) ?| With Kidney Damage ?| ?Without Kidney Damage+ --------+ --------+ +| ?>90 ?| ?Stage one ?| ? Normal ?+ ---+ ---+ -------+| ?60-89 ?| ?Stage two ?| ? Decreased GFR ? + --+ --+ ------+| ?30-59 ?| ?Stage three ?| ? Stage three ? + --+ --+ ------+| ?15-29 ?| ?Stage four ? | ? Stage four ?+ ---+ ---+ -------+| ?<15 (or dialysis) ? ?| ?Stage five ? | ? Stage five ?+ ---+ ---+ -------+ *Each stage assumes the associated GFR level has been in effect for at least three months. ?Stages 1 to 5, with or without kidney disease, indicate chronic kidney disease. Notes: Determination of stages one and two (with eGFR >59mL/min/1.73 m2) requires estimation of kidney damage for at least three months as defined by structural or functional abnormalities of the kidney, manifested by either:Pathological abnormalities or Markers of kidney damage (including abnormalities in the composition of the blood or urine or abnormalities in imaging tests). Lab Interpretation (test code = 48450-4) [id number] 21:02:43* Test Item Value Reference Range Interpretation Comme nts TROPONIN I (test code = 6333966904) 0.007 ng/mL <=0.034 JENNIFER (test code = JENNIFER) Reference (Normal) Range (defined by the 99th percentile reference limit): <= 0.034 ng/mL Note: Cardiac troponin begins to rise 3-4 hours after the onset of ischemia. Repeat in 4-6 hours if the sample was drawn within 3-4 hours of the onset of the symptom and found normal. Diagnosis of myocardial injury is made with acute changes in cTn concentrations with at least one serial sample above the 99th percentile upper reference limit (URL), taken together with the patient's clinical presentation. Biotin has been reported to cause a negative bias, interpret results relative to patient's use of biotin. Lab Interpretation (test code = 33970-3) [id number] 21:00:20* Test Item Value Reference Range Interpretation Comme nts NT-proBNP (test code = 4269734745) 368 pg/mL <=450 JENNIFER (test code = JENNIFER) Biotin has been reported to cause a negative bias, interpret results relative to patient's use of biotin. Lab Interpretation (test code = 87186-9) Normal [facility]. METABOLIC PANEL (94272)2022-11-01 20:51:36* Test Item Value Reference Range Interpretation Comme nts NA (test code = 1923687714) 135 mmol/L 135-145 K (test code = 5896176121) 4.5 mmol/L 3.5-5.0 CL (test code = 0804456697) 100 mmol/L 98-108 CO2 TOTAL (test code = 6983070948) 23 mmol/L 23-31 AGAP (test code = 7258858733) 12 2-16 BUN (test code = 0776718524) 26 mg/dL 7-23 H GLUCOSE (test code = 4664400968) 125 mg/dL 70-110 H CREATININE (test code = 1642106512) 0.82 mg/dL 0.50-1.04 TOTAL BILI (test code = 9829299261) 0.7 mg/dL 0.1-1.1 CALCIUM (test code = 4475638308) 9.7 mg/dL 8.6-10.6 T PROTEIN (test code = 3184416316) 8.0 g/dL 6.3-8.2 ALBUMIN (test code = 6720369510) 4.3 g/dL 3.5-5.0 ALK PHOS (test code = 0159877259) 102 U/L 34-122 ALTv (test code = 1742-6) 19 U/L 5-35 AST(SGOT) (test code = 1563448794) 25 U/L 13-40 eGFR (test code = 5708021933) 67.1 mL/min/1.73m2 JENNIFER (test code = JENNIFER) Association of Glomerular Filtration Rate (GFR) and Staging of Kidney Disease* + --+ --+ ------+| GFR (mL/min/1.73 m2) ?| With Kidney Damage ?| ?Without Kidney Damage+ --------+ --------+ +| ?>90 ?| ?Stage one ?| ? Normal ?+ ---+ ---+ -------+| ?60-89 ?| ?Stage two ?| ? Decreased GFR ? + --+ --+ ------+| ?30-59 ?| ?Stage three ?| ? Stage three ? + --+ --+ ------+| ?15-29 ?| ?Stage four ? | ? Stage four ?+ ---+ ---+ -------+| ?<15 (or dialysis) ? ?| ?Stage five ? | ? Stage five ?+ ---+ ---+ -------+ *Each stage assumes the associated GFR level has been in effect for at least three months. ?Stages 1 to 5, with or without kidney disease, indicate chronic kidney disease. Notes: Determination of stages one and two (with eGFR >59mL/min/1.73 m2) requires estimation of kidney damage for at least three months as defined by structural or functional abnormalities of the kidney, manifested by either:Pathological abnormalities or Markers of kidney damage (including abnormalities in the composition of the blood or urine or abnormalities in imaging tests). Lab Interpretation (test code = 64507-5) [facility]* Test Item Value Reference Range Interpretation Comme nts LIPASE (test code = 5169376240) 104 U/L 0-220 Lab Interpretation (test cod e = 45774-6) Normal [facility] WITH [id number] 20:49:37* Test Item Value Reference Range Interpretation Comme nts WBC (test code = 6690-2) 6.28 See_Comment [Automated [email or web address]] The system which generated this result transmitted reference range: 4.30 - 11.10 10*3/?L. The reference range was not used to interpret this result as normal/abnormal. RBC (test code = 789-8) 5.02 See_Comment [Telx] The system which generated this result transmitted reference range: 3.93 - 5.25 10*6/?L. The reference range was not used to interpret this result as normal/abnormal. HGB (test code = 718-7) 15.0 g/dL 11.6-15.0 HCT (test code = 4544-3) 46.5 % 35.7-45.2 H MCV (test code = 787-2) 92.6 fL 80.6-95.5 MCH (test code = 785-6) 29.9 pg 25.9-32.8 MCHC (test code = 786-4) 32.3 g/dL 31.6-35.1 RDW-SD (test code = 12666-3) 52.8 fL 39.0-49.9 H RDW-CV (test code = 788-0) 15.8 % 12.0-15.5 H PLT (test code = 777-3) 222 See_Comment [Automated messa ge] The system which generated this result transmitted reference range: 166 - 358 10*3/?L. The reference range was not used to interpret this result as normal/abnormal. MPV (test code = 94506-1) 9.3 fL 9.5-12.9 L NRBC/100 WBC (test code = 1136783010) 0.0 See_Comment [Automated Geos[employer] ssage] The system which generated this result transmitted reference range: 0.0 - 10.0 /100 WBCs. The reference range was not used to interpret this result as normal/abnormal. NRBC x10^3 (test code = 3506992465) See_Comment [Automated messa ge] The system which generated this result transmitted reference range: 10*3/?L. The reference range was not used to interpret this result as normal/abnormal. GRAN MAT (NEUT) % (test code = 770-8) 68.3 % IMM GRAN % (test code = 0731063105) 0.50 % LYMPH % (test code = 736-9) 9.9 % MONO % (test code = 5905-5) 11.1 % EOS % (test code = 713-8) 9.7 % BASO % (test code = 706-2) 0.5 % GRAN MAT x10^3(ANC) (test code = 1103034786) 4.29 10*3/uL 1.88-7.09 IMM GRAN x10^3 (test code = 2195482892) 0.03 10*3/uL 0.00-0.06 LYMPH x10^3 (test code = 731-0) 0.62 10*3/uL 1.32-3.29 L MONO x10^3 (test code = 742-7) 0.70 10*3/uL 0.33-0.92 EOS x10^3 (test code = 711-2) 0.61 10*3/uL 0.03-0.39 H BASO x10^3 (test code = 704-7) 0.03 10*3/uL 0.01-0.07 Lab Interpretation (test code = 66915-6) Abnormal [facility] Metabolic Panel (NA, K, CL, CO2, GLUCOSE, BUN, CREATININE, CA)2022-06-10 11:53:52* Test Item Value Reference Range Interpretation Comme nts NA (test code = 3048556880) 132 mmol/L 135-145 L K (test code = 2614178094) 4.4 mmol/L 3.5-5.0 CL (test code = 5024339807) 98 mmol/L 98-108 CO2 TOTAL (test code = 9131127992) 28 mmol/L 23-31 AGAP (test code = 5210026786) 6 2-16 BUN (test code = 4447602908) 16 mg/dL 7-23 GLUCOSE (test code = 7487251370) 114 mg/dL 70-110 H CREATININE (test code = 7277847834) 0.81 mg/dL 0.50-1.04 CALCIUM (test code = 8042373410) 9.2 mg/dL 8.6-10.6 eGFR (test code = 4641818309) 68.0 mL/min/1.73m2 JENNIFER (test code = JENNIFER) Association of Glomerular Filtration Rate (GFR) and Staging of Kidney Disease* + --+ --+ ------+| GFR (mL/min/1.73 m2) ?| With Kidney Damage ?| ?Without Kidney Damage+ --------+ --------+ +| ?>90 ?| ?Stage one ?| ? Normal ?+ ---+ ---+ -------+| ?60-89 ?| ?Stage two ?| ? Decreased GFR ? + --+ --+ ------+| ?30-59 ?| ?Stage three ?| ? Stage three ? + --+ --+ ------+| ?15-29 ?| ?Stage four ? | ? Stage four ?+ ---+ ---+ -------+| ?<15 (or dialysis) ? ?| ?Stage five ? | ? Stage five ?+ ---+ ---+ -------+ *Each stage assumes the associated GFR level has been in effect for at least three months. ?Stages 1 to 5, with or without kidney disease, indicate chronic kidney disease. Notes: Determination of stages one and two (with eGFR >59mL/min/1.73 m2) requires estimation of kidney damage for at least three months as defined by structural or functional abnormalities of the kidney, manifested by either:Pathological abnormalities or Markers of kidney damage (including abnormalities in the composition of the blood or urine or abnormalities in imaging tests). Lab Interpretation (test code = 94539-2) Abnormal [facility] with [id number] 10:50:43* Test Item Value Reference Range Interpretation Comme nts WBC (test code = 6690-2) 4.15 See_Comment L [Automated [employer]] The system which generated this result transmitted reference range: 4.30 - 11.10 10*3/?L. The reference range was not used to interpret this result as normal/abnormal. RBC (test code = 789-8) 3.66 See_Comment L [Automated [employer]] The system which generated this result transmitted reference range: 3.93 - 5.25 10*6/?L. The reference range was not used to interpret this result as normal/abnormal. HGB (test code = 718-7) 11.6 g/dL 11.6-15.0 HCT (test code = 4544-3) 36.0 % 35.7-45.2 MCV (test code = 787-2) 98.4 fL 80.6-95.5 H MCH (test code = 785-6) 31.7 pg 25.9-32.8 MCHC (test code = 786-4) 32.2 g/dL 31.6-35.1 RDW-SD (test code = 60622-9) 55.4 fL 39.0-49.9 H RDW-CV (test code = 788-0) 15.5 % 12.0-15.5 PLT (test code = 777-3) 208 See_Comment [Automated [employer]] The system which generated this result transmitted reference range: 166 - 358 10*3/?L. The reference range was not used to interpret this result as normal/abnormal. MPV (test code = 26606-8) 10.6 fL 9.5-12.9 NRBC/100 WBC (test code = 0202984042) 0.0 See_Comment [Automated me ssage] The system which generated this result transmitted reference range: 0.0 - 10.0 /100 WBCs. The reference range was not used to interpret this result as normal/abnormal. NRBC x10^3 (test code = 6358207373) See_Comment [Automated messa ge] The system which generated this result transmitted reference range: 10*3/?L. The reference range was not used to interpret this result as normal/abnormal. GRAN MAT (NEUT) % (test code = 770-8) 73.0 % IMM GRAN % (test code = 4483909547) 0.50 % LYMPH % (test code = 736-9) 15.7 % MONO % (test code = 5905-5) 10.4 % EOS % (test code = 713-8) 0.2 % BASO % (test code = 706-2) 0.2 % GRAN MAT x10^3(ANC) (test code = 7006742174) 3.03 10*3/uL 1.88-7.09 IMM GRAN x10^3 (test code = 8563689231) 0.00-0.06 LYMPH x10^3 (test code = 731-0) 0.65 10*3/uL 1.32-3.29 L MONO x10^3 (test code = 742-7) 0.43 10*3/uL 0.33-0.92 EOS x10^3 (test code = 711-2) 0.03-0.39 L BASO x10^3 (test code = 704-7) 0.01-0.07 Lab Interpretation (test code = 44127-9) Abnormal [facility] WITH [id number] 00:47:45* Test Item Value Reference Range Interpretation Comme nts WBC (test code = 6690-2) 7.09 See_Comment [Automated messa ge] The system which generated this result transmitted reference range: 4.30 - 11.10 10*3/?L. The reference range was not used to interpret this result as normal/abnormal. RBC (test code = 789-8) 3.85 See_Comment L [Automated messa ge] The system which generated this result transmitted reference range: 3.93 - 5.25 10*6/?L. The reference range was not used to interpret this result as normal/abnormal. HGB (test code = 718-7) 12.3 g/dL 11.6-15.0 HCT (test code = 4544-3) 37.9 % 35.7-45.2 MCV (test code = 787-2) 98.4 fL 80.6-95.5 H MCH (test code = 785-6) 31.9 pg 25.9-32.8 MCHC (test code = 786-4) 32.5 g/dL 31.6-35.1 RDW-SD (test code = 62459-2) 54.7 fL 39.0-49.9 H RDW-CV (test code = 788-0) 15.4 % 12.0-15.5 PLT (test code = 777-3) 233 See_Comment [Automated messa ge] The system which generated this result transmitted reference range: 166 - 358 10*3/?L. The reference range was not used to interpret this result as normal/abnormal. MPV (test code = 98357-4) 9.2 fL 9.5-12.9 L NRBC/100 WBC (test code = 0577402818) 0.0 See_Comment [Automated [employer] ssage] The system which generated this result transmitted reference range: 0.0 - 10.0 /100 WBCs. The reference range was not used to interpret this result as normal/abnormal. NRBC x10^3 (test code = 6292615691) See_Comment [Automated [employer]] The system which generated this result transmitted reference range: 10*3/?L. The reference range was not used to interpret this result as normal/abnormal. GRAN MAT (NEUT) % (test code = 770-8) 70.0 % IMM GRAN % (test code = 5912113300) 0.40 % LYMPH % (test code = 736-9) 10.0 % MONO % (test code = 5905-5) 14.8 % EOS % (test code = 713-8) 4.5 % BASO % (test code = 706-2) 0.3 % GRAN MAT x10^3(ANC) (test code = 8602634057) 4.96 10*3/uL 1.88-7.09 IMM GRAN x10^3 (test code = 4753823932) 0.03 10*3/uL 0.00-0.06 LYMPH x10^3 (test code = 731-0) 0.71 10*3/uL 1.32-3.29 L MONO x10^3 (test code = 742-7) 1.05 10*3/uL 0.33-0.92 H EOS x10^3 (test code = 711-2) 0.32 10*3/uL 0.03-0.39 BASO x10^3 (test code = 704-7) 0.01-0.07 Lab Interpretation (test code = 52377-9) [facility] 23:13:38* Test Item Value Reference Range Interpretation Comme nts Height (test code = 3918665944) in Weight (test code = 6586118618) lbs Systolic BP (test code = 5259640995) mmHg Diastolic BP (test code = 3276377890) mmHg Heart Rate (test code = 4143786246) bpm LVOT stroke volume (test code = 6282412370) 77.60 cm3 EF(Teich) (test code = 4835775941) 72.20 % LVIDD (test code = 4604775422) 4.50 cm LVIDS (test code = 7725337740) 2.70 cm Left Ventricular End Systolic Volume by Teichholz Method (test code = 2840695) 26.1 mL Left Ventricular End Diastolic Volume by Teichholz Method (test code = 0001335) 93.7 mL IVS (test code = 9188058738) 0.85 cm LVPWD (test code = 1148942319) 0.71 cm LVOT diameter (test code = 5217364527) 1.99 cm LVOT area (test code = 9676813430) 3.10 cm2 FS (test code = 8008525992) 41 % MV Peak E Chris (test code = 5027668133) 72.4 cm/s MV Peak A Chris (test code = 6850762632) 109.7 cm/s E/A ratio (test code = 3988883672) ratio E wave decelartion time (test code = 5579755140) 0.23 s MV E/e' septal (test code = 3399596295) 4.6 cm/s LA Volume Index (BP) (test code = 4290644950) 40.0 mL/m2 LA volume (BP) (test code = 9289573048) 71.8 mL LVOT peak chris (test code = 0521160624) 111.0 cm/s LVOT mn grad (test code = 7457202382) mmHg BSA (test code = 4832483799) 1.79 m2 LA size (test code = 9892115620) 3.0 cm LAV(MOD-sp2) (test code = 0046426172) 74.20 mL LAV(MOD-sp4) (test code = 4571350251) 49.50 mL Tapse (test code = 6088254904) 1.95 cm AV LVOT peak gradient (test code = 2420884725) mmHg LVOT peak VTI (test code = 4004649971) 25.0 cm LV V1 mean (test code = 0278429271) 69.10 cm/s MV Prop V (test code = 5328247584) 25.60 cm/s TR Peak Chris (test code = 5528450878) 248.4 cm/s Triscuspid Valve Regurgitation Peak Gradient (test code = 4116197117) mmHg Ao root diam (test code = 6064914134) 3.20 cm Aortic root (test code = 7119202070) 3.2 cm Ao root annulus (test code = 5071717831) 3.2 cm PW (test code = 6844035635) 0.71 cm 0.6-1.1 EF - 2D (test code = 44164014) 72.20 % Interventricular Septum Diastolic Thickness by 2D (test code = 8855817) 0.85 cm Radiology Study observation (narrative) (test code = 60692-1) JENNIFER (test code = JENNIFER) ?Left?Ventricle: Left ventricle size is normal. Normal wall thickness. Normal wall motion. Normal systolic function with a visually estimated EF of 55 - 60%. There is grade 1 diastolic dysfunction and impaired relaxation. ?Right?Ventricle: Right ventricle size is normal. Normal systolic function. ?Left?Atrium: Left atrium is mildly dilated. Left atrium volume index is 40.0 mL/m2. ?Tricuspid?Valve: Mild transvalvular regurgitation. Right ventricular systolic pressure is 25-30 mmHg. ?IVC/SVC: IVC diameter is less than or equal to 21 mm and decreases greater than 50% during inspiration; therefore the estimated right atrial pressure is normal (~0-5 mmHg). ?Pericardium: The pericardium is normal. No pericardial effusion. ?Aorta: Mildly enlarged ascending aorta which measures 1.91 cm/m2. Romel Proctor MD Left VentricleLeft ventricle size is normal. Normal wall thickness. Normal wall motion. Normal systolic function with a visually estimated EF of 55 - 60%. There is grade 1 diastolic dysfunction and impaired relaxation.Right VentricleRight ventricle size is normal. Normal systolic function.Left AtriumLeft atrium is mildly dilated. Left atrium volume index is 40.0 mL/m2.Right AtriumRight atrium size is normal.IVC/SVCIVC diameter is less than or equal to 21 mm and decreases greater than 50% during inspiration; therefore the estimated right atrial pressure is normal (~0-5 mmHg).Mitral ValveModerate posterior mitral annular calcification. Trace transvalvular regurgitation. No stenosis.Tricuspid ValveTricuspid valve structure is normal. Mild transvalvular regurgitation. Right ventricular systolic pressure is 25-30 mmHg.Aortic ValveAortic valve is normal in structure and function.Pulmonic ValveNot well visualized.Ascending AortaMildly enlarged ascending aorta which measures 1.91 cm/m2.PericardiumThe pericardium is normal. No pericardial effusion.Study DetailsStudy quality was adequate. A complete echocardiogram was performed using 2D, color flow Doppler and spectral Doppler. [facility] Notes Date/Time Note Provider Source 2023-10-24 18:10:26 0833-34-34S61:10:26 Okay to provide home health orders. Okay to place social work lecturer referral if necessary. 84383-2Ftylawntw encounter DtizJO8307-12-73Z09:10:40Telephone encounter NoteTXT1.2.840.367818.1.13.104.2.7.2. 612416|[id number] for patient jsfk95143-2YshkNLOKUZFAKSZHfsidzhld C-CDA narrative [address] VZFZHBVKRKDKKEODOYAYZ5484-92-86P32:10 :401.2.840.674740.1.72.3.15|1.2.840.1 55917.1.13.104.2.7.2.727879_[id number] 8 [facility] 2023-10-24 12:56:40 9589-73-09V98:56:40 ALEXEY 10/06/2023- TELEHEALTH melvin - patient and partner have previously been advised on F2F visit required for HH orders.Routed to provider and SW for review. 42631-8Gdngnhjhf encounter EspuPS3815-88-64G85:58:57Telephone encounter NoteTXT1.2.840.437064.1.13.104.2.7.2. 344897|[id number] for patient mmqf35029-3KggsKWKBUMVHJRSZohlvfwnp C-CDA narrative [address]55[address] YBRAVDAGXPAPVWCSQYIQO4875-83-46S77:58 :571.2.840.408012.1.72.3.15|1.2.840.1 95653.1.13.104.2.7.2.727879_[id number] 2 [facility] 2023-10-24 10:34:38 4012-51-41I47:34:38 Franck Crow is a 83 year old femalePt's partner is calling to request home health orders from Dr. Blakely due to pt now being bed ridden and completely disabled. Please contact Fernandez at [phone] (home) 73318-1Gxdvofmro encounter FltoKU8639-28-57X37:36:17Telephone encounter NoteTXT1.2.840.248870.1.13.104.2.7.2. 648350|[id number] for patient mvyx88911-0GizyEOHXNWRHJNECkgbiqmbr C-CDA narrative [id number] R [address]TXTX[address]7555U ZOJDTOLGKUWKSMXEQVQQJ1952-98-60E21:36 :171.2.840.058102.1.72.3.15|1.2.840.1 14062.1.13.104.2.7.2.727879_[id number] 9 Virgilio Ram [facility] 2023-10-18 00:19:47 1120-85-31G27:19:47 Okay to send levofloxacin 500mg once daily x 5 days as an alternative to cephalexin, but I do strongly recommend ER evaluation due to worsening UTI symptoms. If patient is unable to go to the ER, then have patient's partner bring a sample of the patient's urine to the lab for urinalysis and urine culture. Okay to place orders. 88014-4Mmduprlqe encounter TvnuSZ0826-45-24O66:22:28Telephone encounter NoteTXT1.2.840.997405.1.13.104.2.7.2. 964159|[id number] for patient cmtq34202-3FeqtEEZYUNGGWIIWkhdydnvw C-CDA narrative text[address]TXTX[address]5577555U NKTGAAUGCTSIXPZSDVOFA9488-94-94U26:22 :281.2.840.409161.1.72.3.15|1.2.840.1 78872.1.13.104.2.7.2.727879_[id number] 4 [facility] 2023-10-17 10:48:55 4387-13-64T40:48:55 Per pt cephalexin 500 is not working.Pt C/O current dysuria, flank pain, frequent urination, nausea, vomiting, hematuria.Pt is bed bound and unable to come inInformed pt an appt my be needed for further evaluation.Please advise 44737-2Wqmwuadgv encounter KiyyCP1557-24-41R08:51:38Telephone encounter NoteTXT1.2.840.320339.1.13.104.2.7.2. 660070|[id number] for patient xicl53397-8HofhJVTOHQTNXMOKwdoyvqwi C-CDA narrative [id number] M Miller [address] VvqlXabzsgfbyYmmwmummbRAUZ0148250522I MNZEAWKPPEYZSOZWPJDKQ3312-87-84I73:51 :381.2.840.983639.1.72.3.15|1.2.840.1 54650.1.13.104.2.7.2.727879_[id number] 0 Kayla Benitez JOINERY MACHINIST [facility] 2023-10-17 10:37:40 7317-31-35O88:37:40 Franck Crow is a 83 year old femaleHarry significant other to patient is calling in behalf of patient states the patient is currently taking the following medicationcephALEXin 500 mg capsuleBut states the patient hasn't gotten any relief the medicationHarry would like to see if provider can call in another RX that is equevelant or that my work betterPatient continues to have painful urinationPlease [phone] (home)[facility] [id number] [place] [address] Cyttbktupysdzs signed by Sheeba Paz at 10/17/2023 10:42 AM CNL15001-4Ujhurwxxx encounter YsxhQV6396-29-31Y11:42:14Telephone encounter NoteTXT1.2.840.490905.1.13.104.2.7.2. 567855|[id number] for patient drzh43547-1DtsvIQLAELGMKQQOngucwcxo C-CDA narrative [id number] A Contr[address]TXTX[address]7555U CAMWDNLXOPPZVPXXKMLDM4314-44-08I36:42 :141.2.840.782940.1.72.3.15|1.2.840.1 40664.1.13.104.2.7.2.727879_[id number] 1 Sheeba Ramsey Jackson [facility] 2023-10-13 13:23:49 3793-89-04H14:23:49 Prescription sent. Attempted to speak to patient to inform with no success, left voicemail. 46600-0Dwnxjzbzl encounter OireGD0355-91-11G35:25:32Telephone encounter NoteTXT1.2.840.274112.1.13.104.2.7.2. 545628|[id number] for patient jsjt31810-6VpmrNMLDRCVZJSZXzlufzbie C-CDA narrative vrua694392151Wpiul L Garza RN[address]TXTX[address]5577555U QHUPJXZDZPJNMKEYOZWBR4943-97-88Q49:25 :321.2.840.930372.1.72.3.15|1.2.840.1 24957.1.13.104.2.7.2.727879_[id number] 2 Kathi Ohsea RN [facility] 2023-10-13 13:14:30 6536-63-31F69:14:30 Okay to send cephalexin 500mg TID x 7 days 98125-2Nrjjxldsy encounter EpxlQY2074-44-81R61:15:16Telephone encounter NoteTXT1.2.840.954167.1.13.104.2.7.2. 443558|[id number] for patient mjjw48890-1YjzaPBCZVVBYZLEQsolonflw C-CDA narrative textUT[address]TXTX7755577555U YWDBWFPIDNBDIMYCGGBUZ6011-43-68E56:15 :161.2.840.459843.1.72.3.15|1.2.840.1 34940.1.13.104.2.7.2.727879_[id number] 2 [facility] 2023-10-12 10:15:57 8594-63-81N04:15:57 Called and spoke with patient - patient requesting medication for UTIReports she had a telehealth visit and informed her PCP 10/06/2023- states she mentioned to her provider she was having occasional burning with urination.Reports she has been having it more frequent for the past week and is requesting something to be called in.Patient states she is bed bound and is not able to come in for testingDenies fever and chills, painRouted to provider, please advise 48684-4Ataoddpcn encounter QbjuQP8409-22-83T27:36:45Telephone encounter NoteTXT1.2.840.631220.1.13.104.2.7.2. 560335|[id number] for patient ovdu97891-4HkwfXBNOSSKBBQDAmensfrpp C-CDA narrative text[address]TXTX[address]5577555U IFPNYFHVZSPQNLZXWCVVS3190-65-82N01:36 :451.2.840.551684.1.72.3.15|1.2.840.1 69697.1.13.104.2.7.2.727879_[id number] 9 [facility] 2023-10-12 10:01:43 6386-83-86B81:01:43 Franck Crow is a 83 year old femaleHarry is calling to state patient has UTI and would like medication. Patient is bed bound and unable to come to office. Please call. 92712-2Cxqzwieop encounter IzaaNK7602-20-81H10:02:49Telephone encounter NoteTXT1.2.840.229093.1.13.104.2.7.2. 056026|[id number] for patient mbkt58908-7GbfnBMUPAYPLLAVNzaozyawu C-CDA narrative lulv233822155Ryrggj Perez[address]TXTX[address]5577555U WXFTVERSVTRGOZUOYAMIH3447-81-90W38:02 :491.2.840.416619.1.72.3.15|1.2.840.1 18157.1.13.104.2.7.2.727879_[id number] 3 Lexi Ngo [facility] 2023-10-03 14:08:54 9814-62-10C16:08:54 Appt changed to telehealth and patient notified 33360-6Bjxobgabg encounter DrixKL4360-55-20A71:09:07Telephone encounter NoteTXT1.2.840.499026.1.13.104.2.7.2. 920020|[id number] for patient inws40962-1RuavLHFZBJUOXQYSpgyuyint C-CDA narrative [id number] Kel[address]IzjtQklepbfdmFmaknglufSKLZ3080098378D XAKHZVELICJNQXWSHNEHR6190-32-48L09:09 :071.2.840.053924.1.72.3.15|1.2.840.1 78540.1.13.104.2.7.2.727879_[id number] 2 Jenna Cote [facility] 2023-10-03 10:53:45 9880-95-27W02:53:45 Called and spoke with patient - requesting refill on Buspirone 10 mg tabletPatient reports she took the medication as prescribed for the first two days and states it did not help so on the third day she decided to take two 10 mg tablets TID and has been doing this since then - reports this helps her but is now out of medication- requesting refills.Patient also requesting something to be called in for pain in her diaphragm - reports she has tried OTC Tylenol and ibuprofen with minimal relief.Patient advised to discuss pain with PCP at NOV visit. Patient states she does not think she can make it in for face to face appointment requesting Telehealth if possible as of now scheduled for 10/06/2023.Routed to provider, please advisePrescription pending for review. 80602-7Ntqwpvpnf encounter MbvhZD0623-78-70S78:19:47Telephone encounter NoteTXT1.2.840.058149.1.13.104.2.7.2. 662755|[id number] for patient urvc22802-6NrpnAMCXHANZBTBBgnezkdoh C-CDA narrative jose[address]BlggLvqxwnfirYpscatxnyDMNL9794398263D IEECMQFUADAEKCBXUVRZQ3808-54-76K21:19 :471.2.840.315645.1.72.3.15|1.2.840.1 43653.1.13.104.2.7.2.727879_[id number] 4 [facility] 2023-10-03 09:02:46 2353-75-52L32:02:46 Franck Crow is a 83 year old female.Patient's Life Partner is calling stating that the patient is having a hard time managing her anxiety with her dealing with her cancer and is wanting to know if there is anyway to up her anxiety medication BUSPIRONE 10 mg tablet. Partner also stated that she is also having diaphragm pain. So they are wanting to know if there is something she can take to help with pain. Partner is stating patient has taken two tablets of her BUSPIRONE 10 mg tablet to help her anxiety and wants to know if she can continue taking two tablets. 19198-6Arjrodybo encounter MppsVO2331-24-86T02:07:33Telephone encounter NoteTXT1.2.840.044220.1.13.104.2.7.2. 156672|[id number] for patient nopq46420-4JtmjOWTMXOGPMYKXcfccpxtb C-CDA narrative wmsq806258418Msixyva Loving[address]TXTX[address]5577555U OFOIAIDTEIFJFGZMXNOGN0872-26-33V69:07 :331.2.840.429545.1.72.3.15|1.2.840.1 82796.1.13.104.2.7.2.727879_[id number] 6 Jessica Nur [facility] 2023-09-30 15:10:47 5857-12-33U05:10:47 Agree with triage note, need clinic assessment/Defer to PCPRecommend ER precaution for worsening symptoms. 83058-3Bpshudqzu encounter HdgwFE7759-01-41C21:11:53Telephone encounter NoteTXT1.2.840.251367.1.13.104.2.7.2. 111264|[id number] for patient wdkw89579-1VnloEFODAXGDZMLBogxvsnmm C-CDA narrative text-FAMILY MEDICINE STAFF-FAMILY MEDICINE STAFF[address] ZfseZlnozscclQzkabpqelMUFA3227487022U NONOXCJYSFYDJTEEAPOSO3082-16-15U72:11 :531.2.840.801561.1.72.3.15|1.2.840.1 79035.1.13.104.2.7.2.727879_[id number] 1 -FAMILY MEDICINE STAFF [facility] 2023-09-29 10:30:49 6698-31-29G04:30:49 BUSPIRONE 10 mg tablet 90 tablet 0 09/05/2023 -- NoSig: TAKE 1 TABLET BY MOUTH 3 TIMES A DAY NEEDED FOR ANXIETY/PANIC ATTACKNOV 10/06/2023LOV . Panic attack2. AnxietyChronic. Gradually improving-Increase from sertraline 1 tablet daily to SERTraline 100 mg tablet; Take 1.5 tablets by mouth in the morning. Dispense: 135 tablet; Refill: 1-Continue buspar 10mg TIDPRNCalled and spoke with patients partner, he is requesting something to be called in for pain and anxiety. Reports the patient is taking medications as prescribed. Partner is aware the patient's PCP is out of the office and is aware previous Provider's cotton cleaner have advised for patient to follow up with PCP.Partner informs the patient has an appointment scheduled but will not be able to make it, states the patient is completely bed ridden and he would need to get a rescue team to assist with transferring patient. Partner reports the patient's PCP is aware on her status.Patient's partner will also call Oncology for advise, but is requesting assistance and recommendations today if possible. 80004-3Vlrxbmckg encounter AjtgCG8540-64-23O00:20:35Telephone encounter NoteTXT1.2.840.436654.1.13.104.2.7.2. 496921|[id number] for patient wtvp44691-3FlrfFBSFGPJZENAYvznsbfhc C-CDA narrative [id number] L Garza RN[address]TXTX[address]7555U NQRERCHLUIUEKHIEDRKWN8330-56-66I95:20 :351.2.840.348270.1.72.3.15|1.2.840.1 64358.1.13.104.2.7.2.727879_[id number] 3 Kathi Oshea RN [facility] 2023-09-29 09:49:53 4816-99-08Y94:49:53 Copied from [facility] #[id number]. Topic: Clinical - Medical Advice>> September 29, 2023 9:48 AM Patient Blood Bank Order Control Clerk wrote:Franck Crow is a 83 year old femalePts life partner is asking for someone to call him regarding increasing the pts dosage on her BUSPIRONE . Partner needs guidance on this matter. He states theres no way the pt can come in to the office. Please advise. [phone] (home) 82905-0Zgaqlcfzv encounter LhgoOW1065-12-08J64:54:33Telephone encounter NoteTXT1.2.840.106554.1.13.104.2.7.2. 038589|[id number] for patient dwzc89698-8LhicSCHCNCRVWASDcxstkppt C-CDA narrative obmz808944423Tkez Elliott[address]TXTX[address]5577555U DPHDAUWZPQXSMYEVWLIMM8471-80-77R56:54 :331.2.840.945065.1.72.3.15|1.2.840.1 00615.1.13.104.2.7.2.727879_[id number] 2 Yasmeen Ray [facility] 2023-09-27 18:45:01 7536-84-96P06:45:01 Agree that pcp should see patient and discuss change in bu spar if appropriate or not . 23416-9Ianhwunlh encounter RlgzVT8774-45-26W94:45:26Telephone encounter NoteTXT1.2.840.438074.1.13.104.2.7.2. 554974|[id number] for patient kyox13604-6PtpoGNVWQFRUNYCLahjacomk C-CDA narrative textIM-INTERNAL MEDICINE STAFFIM-INTERNAL MEDICINE STAFF[address] MdgrAejcpdumnPeqltnplcOALE5210524302T VCHBSTICWVMXPPTJPWZEE1695-01-04I97:45 :261.2.840.024900.1.72.3.15|1.2.840.1 57784.1.13.104.2.7.2.727879_[id number] 2 IM-INTERNAL MEDICINE STAFF [facility] 2023-09-27 18:09:16 8008-01-98O90:09:16 Will defer to PCP, I advise taking medication as prescribed by prescriber RACIEL Arteagalinical Oracle Software Engineer [facility], [facility] 25685-6Mpvvflkuv encounter SxliEF2884-56-27S27:09:42Telephone encounter NoteTXT1.2.840.965287.1.13.104.2.7.2. 484360|[id number] for patient gplc28362-2OouqGWKWVGHMFOQBfxbdsjaa C-CDA narrative textFM-FAMILY MEDICINE STAFFFM-FAMILY MEDICINE STAFF[address]TXTX[address]5577555U DQQYNBLOHOPKHWBXUPNMN3910-71-24I06:09 :421.2.840.001207.1.72.3.15|1.2.840.1 39004.1.13.104.2.7.2.727879_[id number] 0 -FAMILY MEDICINE STAFF [facility] 2023-09-27 10:16:39 7451-37-21I48:16:39 Copied from [facility] #[id number]. Topic: Clinical - Medical Advice>> September 27, 2023 10:12 AM Patient Blood Bank Order Control Clerk wrote:Pt life partner calling to speak with dr about upping the dosage of the BUSPIRONE. Pt has been taking two pills three times a day and they want to know if this is ok and if they can have the prescription changed to reflect this 91234-7Wghghgwde encounter AyfnVC3408-97-17C79:16:39Telephone encounter NoteTXT1.2.840.336321.1.13.104.2.7.2. 492707|[id number] for patient qthv26141-4EvutDWPDOBEWBKLNbcuamqch C-CDA narrative [id number] C Briggs[address]TXTX[address]5577555U EJPYYTCDBNJGIBCBFOCCW2233-80-08U76:16 :391.2.840.522174.1.72.3.15|1.2.840.1 76476.1.13.104.2.7.2.727879_[id number] 2 Arlin Coronado [facility] 2023-09-15 16:31:06 2249-65-08L02:31:06 RT called pt to confirm appt. for tomorrow, pt reports sick in bed, cancel tomorrow. She declined a reschedule, she states she has cancer all throughout her body and does not believe she can participate in our program. She states she has our number, asked pt to call us of she is able in the future. 50983-8Evtbgcokj encounter ZfwhRY1435-57-06D35:34:06Telephone encounter NoteTXT1.2.840.987558.1.13.104.2.7.2. 321346|[id number] for patient upxc35953-8DxmvTNWZETFDDDTTffjhwqwb C-CDA narrative leac766540909Ifeln Ladarius [address] SkcrVpkdttnveBaozxgaxhFTBW4591573450M DRSIVTXWLZGGXESACAYMP0925-56-02O32:34 :061.2.840.285955.1.72.3.15|1.2.840.1 96639.1.13.104.2.7.2.727879_[id number] 1 Graciela Durand RT [facility] 2023-09-09 10:01:24 1755-99-62D21:01:24 Patient returned call to the clinic, informed my name is Carmen Loza support nurse. Pt identified by name and . She states that she went back to the Emergency Room yesterday and a they did a stovall irrigation for the blood clots, but did not leave with a stovall, further states she is feeling better today, has had only one episode of some blood after going to the restroom today.Informed the patient I would update Dr. Loza's team. 19891-9Vqkflklof encounter VcioGR9875-69-49L13:10:20Telephone encounter NoteTXT1.2.840.045630.1.13.104.2.7.2. 066975|[id number] for patient ccjo04079-8EexnDHIXJISIJTFQqctodvel C-CDA narrative dbcc280207100Oqtbxg E Gingery RN[address]TXTX[address]5577555U XYAAMOCMIXULVUMHZYTFS3556-97-98B57:10 :201.2.840.165401.1.72.3.15|1.2.840.1 13385.1.13.104.2.7.2.727879_[id number] 9 Carmen Rivera RN [facility] 2023-09-08 13:42:41 1967-75-75Z70:42:41 DC hold for clear urine from continuous bladder irrigation. 75563-8Qddjeewov department XngoEA5389-46-74W16:43:29Emergency department NoteTXT1.2.840.062577.1.13.104.2.7.2. 662110|[id number] for patient iabz40032-3ArnmCXHROEDTYPGYuvqvlbvx C-CDA narrative bviu877046307QirxdBrie Juarez RN[address] YcrcRckxoquppAdlfzqtpbZAQM3653079630E QIMIPAPJYBYGMIWXBFCRM2715-40-01P92:43 :291.2.840.283263.1.72.3.15|1.2.840.1 59953.1.13.104.2.7.2.727879_[id number] 5 Brie Juarez RN [facility] 2023-09-08 13:10:26 5096-42-37D68:10:26 1400 ml urine emptied from stovall irrigation, pink in color. Patient is alert and oriented x4, respirations are even and unlabored, PPPX4, skin warm and dry, skin color appropriate to race. Discussed plan of care with patient, comfort measures provided, call light within reach and patient verbalizes understanding of how and when to use. 77736-8Rpwdllccs department EqomNP9782-51-14L51:11:22[facility] NoteTXT1.2.840.966982.1.13.104.2.7.2. 349494|7196952420QEZyopirrmr for patient tvcn38521-2BdqfAYRKYAPQRFPDooykhemg C-CDA narrative ppph199429185Zxxydfya L Enloe RN[address]TXTX[address]7555U WELLKGEJSIQLORPMHRXFN5747-87-48P01:11 :221.2.840.503129.1.72.3.15|1.2.840.1 76191.1.13.104.2.7.2.727879_[id number] 3 Lina Gresham RN [facility] 2023-09-08 11:35:00 6578-01-15H03:35:00 Franck Crow is a 83 year old female complaining of red urine and blood clots in urine. Pt was seen here yesterday but declined to stay, stated she was needing to be at home to rest. Pt is pleasant and cooperative. Patient is alert and oriented x4, respirations are even and unlabored, PPPX4, skin warm and dry, skin color appropriate to race. Discussed plan of care with patient, comfort measures provided, call light within reach and patient verbalizes understanding of how and when to use. Pt was educated about bladder irrigation with physician at bedside. 92479-3Qewthxbgm department LzdaQL0976-72-03V18:11:23[facility] NoteTXT1.2.840.779513.1.13.104.2.7.2. 829042|[id number] for patient hqxb93962-2QlisWHBEUMARCAIUhhufsfqr C-CDA narrative textUT[id number] ESJMWXDBSKWPBVZIWZTCT1998-16-61I93:11 :231.2.840.259305.1.72.3.15|1.2.840.1 52549.1.13.104.2.7.2.727879_[id number] 4 [facility] 2023-09-08 11:18:14 8659-50-26U48:18:14 Franck Crow is a 83 year old female via wheelchair to triage with c/o passing blood clots in urine. Pt. Reports was seen in ED yesterday for same complaint. Pt. Is on 3L nc oxygen d/t COPD/emphysema. Pt. Dx with bladder cancer at 80, treated, but thinks cancer is back. Pt. Aaox4, to room for eval. 71824-4Daqnfglgp department Triage tdyzPN9714-63-98Z33:22:50[facility] Triage noteTXT1.2.840.424424.1.13.104.2.7.2. 665918|[id number] for patient lncb03889-9Vgxijqtbo department NoteLNNARRATIVEFormatted C-CDA narrative [id number] M McCoy RNUT[id number] OMSQIMALZNNANMJOLPPAY4779-80-74K34:22 :501.2.840.721550.1.72.3.15|1.2.840.1 07795.1.13.104.2.7.2.727879_[id number] 0 Pina Mauricio RN [facility] - Health 2023-09-08 11:01:00 6668-64-10L49:01:00 [facility] Emergency Department NotePatient Name: Franck NewsomDate of : 1940 83 year old femaleTreatment [address] [place], [place] [address]Medical Record Number: [id number] Care Physician: Mimi BlakelyPatient Escorted by: Family [5]Mode of Arrival: Personal means [1]EMS Treatment Prior to ED Arrival:Travel and Exposure Screening:SymptomsDoes patient have any of these symptoms?: (not recorded)Exposure ScreeningHas patient had contact with someone with a communicable disease in the last month?: (not recorded)Diseases exposed to:: (not recorded)Is Patient ?: (not recorded)Exposure Date: (not recorded)Chief Complaint:Chief ComplaintPatient presents with HematuriaHistory of Present Illness:83yo female with h/o Urothelial Carcinoma of the Bladder, Stage II ([id number]), s/p TURBT, NAC Cisplatin+ Gemcitabine, trimodality therapy completed 08/06/20, 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 Of note, patient was in the ER yesterday with similar presentation. UA at the time negative for infection but positive for blood. CT Abd/Pelvis showed likely recurrent metastatic cancer due to retroperitoneal lymphadenopathy in the abdomen and pelvis and new pulmonary nodule. Patient was made aware of findings and asked to follow up with with oncology. Patient offered leg bag and catheter in the ED yesterday as hematuria expected to continue and to clot and obstruct but patient declined and was discharged home.No vomiting or nausea or flank painHistory provided by: PatientLanguage wirer passenger car used: NoPast Medical History/Immunizations:Past Medical History:Diagnosis Date NICK positivehigh titer >1:1280 homogenous pattern, but all the other serologies garcia, SMRNP, SSA, SSB, dsDNA, aPL have been negative, C3 and C4 normal. Clinically no concerning symptoms at this time. Arthritis Cataract cortical, senile, right COPD (chronic obstructive pulmonary disease) Gout Hypertension Macular degeneration PAD (peripheral artery disease) Rheumatoid arthritis, seropositiveCCP 70, RF 74. X ray hands 2019 - progressive erosive changes. Nodular. Smokes. Previous meds: MTX held per Oncology concern for bone marrow. S/p bladder cancer ChemoXRT completed in 2020. Age related macular degeneration so avoiding HCQ. Urothelial carcinoma of bladder 2019 Vitamin D deficiencyAllergies:AllergiesAllergen Reactions Codeine Other - See commentsheadaches Plaquenil [Hydroxychloroquine] Other - See commentsOphthalmologist has recommended against Hydroxychloroquine. Sulfa (Sulfonamide Antibiotics) RashPast Social History:Tobacco UseFormer; Cigarettes: 08/22/1969 - 08/23/2019; Smoked an average of 1 pack/day for 50.0 yearsPassive Exposure: NeverSmokeless Tobacco: Never used smokeless tobacco.Comments: Periodic non-smoker, last cigarette 3 days ago.Vaping UseNever usedAlcohol UseNo.Comments: social drinkingDrug UseNo.Sexual ActivityNot currently sexually active.Past Surgical History:Past Surgical History:Procedure Laterality Date ESOPHAGOGASTRODUODENOSCOPY N/A 2Surgeon: Nicole Dawson MD; Location: [facility] ([facility]) OR LOCATION EYE INJECTION (SPECIFY) HYSTERECTOMY PHACOEMULSIFICATION OF CATARACT WITH INTRAOCULAR LENS IMPLANT Right 01/30/2018Dr. Barak PHACOEMULSIFICATION OF CATARACT WITH INTRAOCULAR LENS IMPLANT Right 01/30/2018Surgeon: Matthew Cancino MD; [facility] PHACOEMULSIFICATION OF CATARACT WITH INTRAOCULAR LENS IMPLANT Left 11/03/2020urgeon: Matthew Cancino MD; Location[facility] Location [place] REVSC OPN/PRQ ILIAC ART W/STNT PLMT & ANGIOPLSTY 2008, 01/07/2015 STENT PLACEMENT (SHX)bilateral legs with stent for PAD TRANSURETHRAL BLADDER TUMOR RESECTION N/A 04/08/2020Surgeon: Jacob Mao MD; [facility] TRANSURETHRAL RESECTION OF BLADDER TUMOR WITH BLUE LIGHT (SHX) N/A 10/16/2019Surgeon: Jacob Mao MD; [facility] UPPER ULTRASOUND (SHX) N/A 2Surgeon: Nicole Dawson MD; Location: ENDOSCOPY ([facility]) OR LOCATION WRIST ARTHRODESIS Left 05/26/2018Surgeon: Mathew Marques MD; Location: [facility] LocationReview of Systems:Review of SystemsGenitourinary: Positive for vaginal bleeding and pelvic pain.Physical Exam:ED Triage VitalsWeight 09/08/23 1118 52.6 kg (116 lb)Actual or estimated 09/08/23 1118 Estimated by patient/family reportHeight 09/08/23 1118 1.727 m (5' 8")BP 09/08/23 1120 125/79Pulse 09/08/23 1120 101Resp 09/08/23 1120 18Temp 09/08/23 1120 36.8 ?C (98.2 ?F)Temp source 09/08/23 1120 OralSpO2 09/08/23 1120 91 %Measured on 09/08/23 1140 On oxygenPhysical ExamVitals and nursing note reviewed.Constitutional:Comments: Alert and oriented, on 3L O2 via NC and not in distress.Cardiovascular:Rate and Rhythm: Normal rate and regular rhythm.Pulses: Normal pulses.Heart sounds: Normal heart sounds.Pulmonary:Effort: Pulmonary effort is normal. No respiratory distress.Breath sounds: Normal breath sounds. No wheezing or rhonchi.Abdominal:General: Abdomen is flat.Palpations: Abdomen is soft.Skin:General: Skin is warm and dry.Capillary Refill: Capillary refill takes 2 to 3 seconds.Neurological:General: No focal deficit present.Mental Status: She is alert and oriented to person, place, and time.Psychiatric:Mood and Affect: Mood normal.Behavior: Behavior normal.Radiology:No orders to displayLab Results:Lab Results - No data to displayEKG:If EKG completed, see Procedure Note.Orders and Treatments:No orders of the defined types were placed in this encounter.No orders of the defined types were placed in this encounter.First Provider Eval:ED EventsNoneED COURSEDiagnosis/Impression as of 09/08/23 1329Hematuria, unspecified typeHistory of bladder cancerChronic obstructive pulmonary disease, unspecified COPD typeProcedures:ProceduresMDM:Medical Decision MakingThiyong is an 83 yo female patient with history of Bladder Ca, COPD/Emphysema and Vitamin D deficiency who presents with suprapubic pain and hematuria with clots in urine. Likely due to recurrent bladder Ca now with metastasis to the lungs as noted on CT on 09/07/23. Will order [address] stovall catheter with bladder irrigation until urine clear. Plan to discharge home to follow-up with Oncology.Flowsheet Documentation:Scoring Tools:No data recordedDisposition/Condition:ED DispositionNoneDischarge Medications:Patient's MedicationsSTART taking these medicationsNo medications on fileCONTINUE taking these medications which have NOT CHANGEDALBUTEROL 2.5 MG /3 ML (0.083 %) NEBULIZER SOLUTION Inhale 3 mL every 4 (four) hours as needed for Wheezing or Shortness of Breath.ALBUTEROL 2.5 MG/0.5 ML NEBULIZER SOLUTION Inhale 0.5 mL every 6 (six) hours as needed for Wheezing.ALBUTEROL 90 MCG/ACTUATION INHALER Inhale 2 Puffs every 4 (four) hours as needed for Wheezing or Shortness of Breath.ASPIRIN 81 MG CHEWABLE TABLET Take 1 Tab by mouth daily.ATORVASTATIN 40 MG TABLET TAKE ONE TABLET BY MOUTH AT BEDTIMEBUSPIRONE 10 MG TABLET TAKE 1 TABLET BY MOUTH 3 TIMES A DAY NEEDED FOR ANXIETY/PANIC ATTACKFAMOTIDINE 20 MG TABLET Take 1 tablet by mouth in the morning.FOLIC ACID 1 MG TABLET Take 3 tablets by mouth in the morning.IPRATROPIUM 0.02 % NEBULIZER SOLUTION Inhale 2.5 mL every 6 (six) hours.IPRATROPIUM 17 MCG/ACTUATION INHALER Inhale 2 Puffs 4 (four) times daily.LEFLUNOMIDE (ARAVA) 20 MG TABLET Take 1 tablet by mouth in the morning.MELOXICAM 7.5 MG TABLET Take 1 tablet by mouth once daily as needed for Pain (scale 7-10) or Pain (scale 4-6) for up to 120 days.METOPROLOL TARTRATE 100 MG TABLET TAKE ONE TABLET BY MOUTH EVERY MORNING AND ONE IN THE EVENINGNEBULIZER & COMPRESSOR FOR NEB OSIEL Use as directedSERTRALINE 100 MG TABLET Take 1.5 tablets by mouth in the morning.TETRAHYDROZOLINE 0.05 % OPHTHALMIC SOLUTION Take 1 Drop in the morning and 1 Drop in the evening.TIOTROPIUM-OLODATEROL (STIOLTO RESPIMAT) 2.5-2.5 MCG/ACTUATION MIST Inhale 2 Puffs in the morning.VIT A/VIT C/VIT E/ZINC/COPPER (ICAPS AREDS ORAL) Take by mouth daily.START taking Modified Medications as PrescribedNo medications on fileSTOP taking these medicationsNo medications on fileFollow-up:Electronically signed by:ELOISA [facility]erepartment of [facility], PGY-1AJennifer soriano MD09/08/23 1200AsaJennifer oliver MD09/08/23 1206 ssociated attestation - Lynsey Bell MD - 09/08/2023 12:49 PM CDT I personally examined the patient on 09/08/[address] Jeffery's resident note as written . I actively participated in the decision-making process. Please see the resident's note for additional details.37633-9Rxrpsoakk Emergency department [id number], Andres1.2.840.501986.1.13.104.2.7.2.8 26897PvbovobhDzykhbYZ4150-26-81O77:49 :30Physician Emergency department NoteTXT1.2.840.084651.1.13.104.2.7.2. 811392|[id number] for patient bcsm96237-8Dcqlzmjhe department NoteLNNARRATIVEFormatted C-CDA narrative textFM-FAMILY MEDICINE-[address] Vt[id number] YYHSMAVFMUFOSYEUVGIBD7910-74-81G78:49 :301.2.840.865079.1.72.3.15|1.2.840.1 92150.1.13.104.2.7.2.727879_[id number] 6 [facility] 2023-09-08 11:01:00 0522-39-95Q93:01:00 Medical Decision MakingProblems Addressed:Chronic obstructive pulmonary disease, unspecified COPD type: chronic illness or injuryHematuria, unspecified type: chronic illness or injury with exacerbation, progression, or side effects of treatmentHistory of bladder cancer: chronic illness or injuryAmount and/or Complexity of Data ReviewedExternal Data Reviewed: labs, radiology and notes.Details: From her recent visits reviewedCase seen and evaluated by me at bed side with Dr Jeffery Route Specialist working under my supervision, see her complete note for additional detailsLynsey Bell MD09/08/23 1330 42246-2Clyfrpite Emergency department RowjHE0374-25-34G61:30:43Physician Emergency department NoteTXT1.2.840.478994.1.13.104.2.7.2. 197559|[id number] for patient iznk73112-2Nqrxrfsoo department NoteLNNARRATIVEFormatted C-CDA narrative text[address] Ts[id number] MPYDVEHKFZHQXLUASQEAV1645-62-55L56:30 :431.2.840.318655.1.72.3.15|1.2.840.1 45468.1.13.104.2.7.2.727879_[id number] 7 [facility] 2023-09-08 10:48:36 4020-76-37T47:48:36 Left detailed voicemail on patient phone with the purpose of the call and the contact information for pt to return call to clinic to speak with Carmen Rivera RN.Noted patient went to the emergency room for evaluation. 80339-1Ljcswxiil encounter DoaqPE6898-33-31Z24:49:17Telephone encounter NoteTXT1.2.840.087301.1.13.104.2.7.2. 558427|[id number] for patient ekej63710-3LtgoGUDKNIMDSXOIcfugdixd C-CDA narrative pimp808044149Jfwiah E Gingery [id number] FXGIWPAACUTTGEDUUITEQ3453-02-45M58:49 :171.2.840.562946.1.72.3.15|1.2.840.1 14888.1.13.104.2.7.2.727879_[id number] 0 Carmen Rivera RN [facility] 2023-09-08 10:20:07 3634-34-01Q31:20:07 Patient calling to notify of going back to the ER. Please contact patient at [phone] signed by Idalia Mccauley at 09/08/2023 10:20 AM DEO50165-2Ynlearvpr encounter RfnrPZ2633-64-33P52:20:49Telephone encounter NoteTXT1.2.840.541005.1.13.104.2.7.2. 875112|[id number] for patient taja97936-8UbdkAPFWDVZUEWOEjjnislju C-CDA narrative [id number] Rid[address][id number] DZFNMVUWXNXPAHCNJOMCA8876-81-12L80:20 :491.2.840.061885.1.72.3.15|1.2.840.1 89736.1.13.104.2.7.2.727879_[id number] 4 Idalia Mccauley [facility] 2023-09-07 17:56:46 0040-41-84K49:56:46 Voiding accident in bed, assisted with hygiene, mild SOB, patient needs a few minutes and will be taken to the lobby in a WC d/t DC. Pt pleasant, cooperative, and NAD noted. 05847-2Ekvreranc department IgkgWX8033-87-56K44:57:54[facility] department NoteTXT1.2.840.357772.1.13.104.2.7.2. 905799|[id number] for patient fuvy00336-6TnijWQGOGLYATWMZlklawkbx C-CDA narrative [id number] Campos MAURER[address] NfrhLzuqtmtrjYjbdxhawfWDHU4006719468K NXINVAYGTLGOYJFAFRRIH9671-38-28G63:57 :541.2.840.580059.1.72.3.15|1.2.840.1 43251.1.13.104.2.7.2.727879_[id number] 6 Terrance Gasca RN [facility] 2023-09-07 17:29:41 4603-93-56Z77:29:41 Patient given printed and verbal discharge instructions regarding POC, encouraged hydration and proper nutrition.Prescriptions provided: n/aDiscussed indications, side effects and expected therapeutic response to medications. Advised to take until completed unless adverse reaction occurs - if occurs, discontinue medication and follow up with PCP /seek medical attention.Patient verbalized understanding of instructions. Patient is awake alert oriented, respirations even & unlabored, skin warm & dry, color appropriate for race, moves all extremities well, patient encouraged to follow up with PCP and keep all appropriate appointments as otherwise scheduled or to return to ED for new, prolonged, or worsening of symptoms.Patient departed ED ambulatory with steady gait and in possession of all belongings. 76037-5Pyctkunza department IfonBB4110-83-78W46:30:09[facility]in[facility] department NoteTXT1.2.840.694884.1.13.104.2.7.2. 414424|[id number] for patient gokk54763-2ZvqdYDXDCQZVOILDiczxbuiz C-CDA narrative text[address] [id number] DJIIIPKPCEKJZLOTNLBAT7872-36-42R42:30 :091.2.840.777684.1.72.3.15|1.2.840.1 57161.1.13.104.2.7.2.727879_[id number] 8 [facility] 2023-09-07 17:09:13 1789-41-31B72:09:[address] Da Silvaconer 77011-3Kznheatcg department ArquJS6023-65-83P71:09:23[facility] department NoteTXT1.2.840.488634.1.13.104.2.7.2. 468429|[id number] for patient sace20012-0UrggNNZPAEILDFAFrlbmfmeo C-CDA narrative [id number] Nini RNUT[id number] IBNBYLTOSDKTRFNXRSBKF8485-53-74Q77:09 :231.2.840.881975.1.72.3.15|1.2.840.1 61482.1.13.104.2.7.2.727879_[id number] 5 Sharon Najera RN [facility] 2023-09-07 15:44:16 4146-11-50T60:44:16 Straight cath the pt with a female RN a bedside. Pt pleasant, cooperative, UA collected, and going off unit d/t [place]. [address]-4Yyobmoucx department MyqsAR7586-29-63B86:48:55[facility] NoteTXT1.2.840.759903.1.13.104.2.7.2. 134468|[id number] for patient onha00991-5AkkoESQJGTTQUVTIsnirplhl C-CDA narrative text[address] [id number] QVBRGGWYBYMUONDRKWYRI1693-83-58W35:48 :551.2.840.793096.1.72.3.15|1.2.840.1 40252.1.13.104.2.7.2.727879_[id number] 4 [facility] 2023-09-07 14:16:56 5344-35-95I44:16:56 Pt reported waking up 4-5 am, went to the bathroom, couldn't void. Since then having polyuria. Some hematuria. Around 1130 am passed a blood clot. Passed a 2nd clot. Had suprapubic pain. Passed a 3rd clot, than my bladder emptied out. Have anxiety that causes SOB. On home O2 3L NC. PMH: emphysema, bladder caPt is A/Ox4/stand by assist, 3.5L NC, presently denies abd pain, N/V/D, dizziness or light headiness. [address]83-2Qohbmkcje[address] IsfoJE1943-02-86A83:22:28[facility] NoteTXT1.2.840.687102.1.13.104.2.7.2. 299479|[id number] for patient jfxo04235-1DgerAWSJZHDJDSTIzvpcknrk C-CDA narrative [id number] WQBBILGWIHGSOPOZANFWO3047-00-43C77:22 :281.2.840.270784.1.72.3.15|1.2.840.1 15614.1.13.104.2.7.2.727879_[id number] 9 [facility] 2023-09-07 14:03:32 9875-86-53I30:03:32 Franck Crow is a 83 year old female who presents to the ED in wheelchair with complaints of dysuria pt reports the urge to pee starting this morning but unable to get more than 2 tablespoons out, pt reports she passed 2 blood clots then able to pee normally AOx4. Respirations even and unlabored. Skin warm and dry. NAD noted. Pt to er room for further eval 95797-8Hmwblsmcm department Triage dennKH3836-15-19D63:05:27[facility] Triage noteTXT1.2.840.422260.1.13.104.2.7.2. 651564|[id number] for patient mjzo88410-4Ktnddulpq department NoteLNNARRATIVEFormatted C-CDA narrative [id number] Huff RNUT[address] Ol[id number] QUFXLYIAHUIFBIJEQROPM8303-50-93Q97:05 :271.2.840.421513.1.72.3.15|1.2.840.1 72828.1.13.104.2.7.2.727879_[id number] 9 Tuan Ortiz RN [facility] 2023-09-07 13:32:23 0004-53-50B95:32:23 Agreed with recommendation. 24049-4Vpoputbwl encounter VgeiOV7777-70-34E77:33:00Telephone encounter NoteTXT1.2.840.822594.1.13.104.2.7.2. 946375|[id number] for patient eaqb59984-5MxnsEMFDMLSRPRRZjpbtpasy C-CDA narrative textPA-PHYSICIAN ANODE MACHINE OPERATOR MIDLEVEL PROVIDERPA-PHYSICIAN ANODE MACHINE OPERATOR MIDLEVEL PROVIDER[address] An[id number] DNARRAXBVTVXANWIYNAYN5970-77-86D93:33 :001.2.840.910447.1.72.3.15|1.2.840.1 72185.1.13.104.2.7.2.727879_[id number] 8 PA-PHYSICIAN ANODE MACHINE OPERATOR MIDLEVEL PROVIDER [facility] 2023-09-07 13:31:00 2152-52-24R61:31:00 [facility] Emergency Department NotePatient Name: Franck AguilaromDate of : 1940 83 year old femaleTreatment Room: [address] [place] [address] Record Number: [id number] Care Physician: Mimi BlakelyPatient Escorted by: Self [9]Mode of Arrival: Personal means [1]EMS Treatment Prior to ED Arrival:Travel and Exposure Screening:SymptomsDoes patient have any of these symptoms?: (not recorded)Exposure ScreeningHas patient had contact with someone with a communicable disease in the last month?: (not recorded)Diseases exposed to:: (not recorded)Is Patient ?: (not recorded)Exposure Date: (not recorded)Chief Complaint:Chief ComplaintPatient presents withDYSURIAHistory of Present Illness:QAL26bl WF with 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 She was finally able to go but it was a blood clot and then she got only dribbles out. With her third attempt she got a blood clot and a flood of urine out. She is worried that there is a tumor there like there was before. She had cancer. She also states the pain is present now but its all suprapubic. No vomiting or nausea or flank pain.Past Medical History/Immunizations:Past Medical History:Diagnosis DateANA positivehigh titer >1:1280 homogenous pattern, but all the other serologies garcia, SMRNP, SSA, SSB, dsDNA, aPL have been negative, C3 and C4 normal. Clinically no concerning symptoms at this time.ArthritisCataract cortical, senile, rightCOPD (chronic obstructive pulmonary disease)GoutHypertensionMacular degenerationPAD (peripheral artery disease)Rheumatoid arthritis, seropositiveCCP 70, RF 74. X ray hands 2019 - progressive erosive changes. Nodular. Smokes. Previous meds: MTX held per Oncology concern for bone marrow. S/p bladder cancer ChemoXRT completed in 2020. Age related macular degeneration so avoiding HCQ.Urothelial carcinoma of bladder 2019Vitamin D deficiencyAllergies:AllergiesAllergen ReactionsCodeine Other - See commentsheadachesPlaquenil [Hydroxychloroquine] Other - See commentsOphthalmologist has recommended against Hydroxychloroquine.Sulfa (Sulfonamide Antibiotics) RashPast Social History:Tobacco UseFormer; Cigarettes: 08/22/1969 - 08/23/2019; Smoked an average of 1 pack/day for 50.0 yearsPassive Exposure: NeverSmokeless Tobacco: Never used smokeless tobacco.Comments: Periodic non-smoker, last cigarette 3 days ago.Vaping UseNever usedAlcohol UseNo.Comments: social drinkingDrug UseNo.Sexual ActivityNot currently sexually active.Past Surgical History:Past Surgical History:Procedure Laterality DateESOPHAGOGASTRODUODENOSCOPY N/A 2Surgeon: Nicole Dawson MD; Location: [facility]OSCOPY ([facility]) OR LOCATIONEYE INJECTION (SPECIFY)HYSTERECTOMYPHACOEMULSIFICAT ION OF CATARACT WITH INTRAOCULAR LENS IMPLANT Right 01/30/2018Dr. AdebayoPHACOEMULSIFICATION OF CATARACT WITH INTRAOCULAR LENS IMPLANT Right 01/30/2018Surgeon: Matthew Cancino MD; [facility] YakelinPHACOEMULSIFICATION OF CATARACT WITH INTRAOCULAR LENS IMPLANT Left 11/03/2020urgeon: Matthew Cancino MD; [facility] YakelinPR REVSC OPN/PRQ ILIAC ART W/STNT PLMT & ANGIOPLSTY 2008, 01/07/2015STENT PLACEMENT (SHX)bilateral legs with stent for PADTRANSURETHRAL BLADDER TUMOR RESECTION N/A 04/08/2020Surgeon: Jacob Mao MD; [facility]: [facility] OR LocationTRANSURETHRAL RESECTION OF BLADDER TUMOR WITH BLUE LIGHT (SHX) N/A 10/16/2019Surgeon: Jacob Mao MD; [facility]: [facility] LocationUPPER ULTRASOUND (SHX) N/A 2Surgeon: Nicole Dawson MD; Location: [facility]OSCOPY ([facility]) OR LOCATIONWRIST ARTHRODESIS Left 05/26/2018Surgeon: Mathew Marques MD; Location: [facility] LocationReview of Systems:Review of SystemsConstitutional: Negative for activity change, diaphoresis, fatigue, fever and weight gain.HENT: Negative for congestion, ear pain, rhinorrhea, sore throat, tinnitus and trouble swallowing.Eyes: Negative for discharge and visual disturbance.Respiratory: Negative for cough and chest tightness.Breasts: Negative for pain.Cardiovascular: Negative for chest pain and palpitations.Gastrointestinal: Positive for abdominal pain (suprapubic). Negative for nausea and vomiting.Genitourinary: Positive for dysuria, hematuria and difficulty urinating.Musculoskeletal: Negative for joint swelling.Skin: Negative for rash and wound.Neurological: Negative for dizziness and headaches.Psychiatric/Behavioral: Negative for agitation and confusion. The patient is not nervous/anxious.Hematological: Does not bruise/bleed easily.Endocrine: Negative for weight gain.Physical Exam:ED Triage Vitals [09/07/23 1344]Weight 52.6 kg (116 lb)Actual or estimatedHeightBP 111/76Pulse 106Resp 20Temp 36.6 ?C (97.9 ?F)Temp srcSpO2 95 %Measured onPhysical ExamVitals reviewed.Constitutional:Appearance: She is well-developed.HENT:Head: Normocephalic and atraumatic.Eyes:Conjunctiva/sclera: Conjunctivae normal.Cardiovascular:Rate and Rhythm: Normal rate and regular rhythm.Heart sounds: Normal heart sounds. No murmur heard.Pulmonary:Breath sounds: No stridor. Wheezing and rhonchi present.Comments: Increased work or breathing, but patient refuses breathing treatment and keeps saying its anxietyAbdominal:General: Bowel sounds are normal.Palpations: Abdomen is soft.Tenderness: There is no abdominal tenderness.Musculoskeletal:General: Normal range of motion.Cervical back: Neck supple.Skin:General: Skin is warm and dry.Capillary Refill: Capillary refill takes less than 2 seconds.Neurological:Mental Status: She is alert and oriented to person, place, and time.Cranial Nerves: No cranial nerve deficit.Psychiatric:Behavior: Behavior normal.Radiology:CT ABDOMEN PELVIS WO CONTRASTPreliminary ResultEXAM: CT ABDOMEN PELVIS WO CONTRASTHISTORY: 83 years-old Female; Provided indication: Flank pain, kidneystonesuspectedhematuria .History independently obtained from [facility]: "urinary retention since thismorning ". History of bladder cancer status post chemoradiation completedin 2020.TECHNIQUE: Contiguous axial imaging from the level of the lung basesthrough the proximal thighs was performed without the intravenousadministration of contrast. Coronal and sagittal reconstructions wereobtained.COMPARISON: Multiple CTs of the abdomen and pelvis dating back to09/20/2019with the most recent performed on 05/24/2022. Chest CT performed on06/09/2022.FINDINGS:. All image numbers will be for the axial series 201 unless otherwisespecified.Severe emphysematous changes are present. New solid nodules are noted inthe left lower lung such as on image 10 and image 13 while the 1.4 cmnodule on image 21 is larger from prior studies.The liver, gallbladder, biliary system, pancreas, spleen, adrenal glands,and kidneys have a grossly unremarkable noncontrast appearance.The gastrointestinal tract has no areas of obstruction, wall thickening,orabnormal dilatation. A moderate volume of stool is seen. A normal appendixis visualized on image 67.The urinary bladder is partially distended and layering hyperdensity isnoted. The left diverticulum is again seen. No obvious recurrenthyperdensemass is visualized along the left bladder wall where the prior malignancywas seen in 2019. Hysterectomy changes are noted. No adnexal mass is seen.No free air or focal fluid collection is visualized.Worsening retroperitoneal lymphadenopathy is annotated at multiple sites:1.3 cm on image 331.5 cm on image 461.4 cm at the bifurcation on image 621.3 cm after the bifurcation on image 69With the large known left external iliac lymph node now measuring over 3.5cm on image 87.The vasculature has severe diffuse atherosclerotic calcifications. Noacuteosseous abnormality or suspicious osseous lesion is definitely seen. Thesoft tissues have no acute findings.IMPRESSIONNo renal stones.Layering hyperdensity within the bladder probably represents bloodproducts. No obvious recurrent primary mass is visualized within thebladder.Recurrent metastatic disease as shown by solid pulmonary nodules andworsening retroperitoneal lymphadenopathy in the abdomen and pelvis.Further evaluation can be decided with the patient's oncological provideron a nonemergent basis.Preliminary Report Dictated by Resident: Kamlesh Mendenhall Results:Lab ResultsURINALYSIS - AbnormalResult Value Ref RangeAPPEARANCE Cloudy (*) ClearCOLOR Red (*) YellowPH 6.0 4.8 - 8.0SP GRAVITY 1.013 1.003 - 1.030GLU U QUAL Normal NormalBLOOD 3+ (*) NegativeKETONES 5 mg/dL (*) NegativePROTEIN 100 mg/dL (*) NegativeUROBILIN Normal NormalBILIRUBIN Negative NegativeNITRITE Negative NegativeLEUK CARLIN Negative NegativeRBC/HPF >182 (*) 0 - 3 HPFWBC/HPF 0 0 - 5 HPFBACTERIA Few (*) NegativeEKG:If EKG completed, see Procedure Note.Orders and Treatments:Orders Placed This EncounterProceduresCT ABDOMEN PELVIS WO CONTRASTUrinalysisOrders Placed This EncounterMedicationsipratropium-albut Ema (DUONEB) 0.5 mg-3 mg(2.5 mg base)/3 mL nebulizer solution 3 mLDISCONTD: ketorolac (TORADOL) injection 15 mgDISCONTD: phenazopyridine (PYRIDIUM) tablet 200 mgFirst Provider Eval:ED EventsDate/Time Event User Gpwkdndf29/08/24 1449 Medical Screening Begins TOMAS MARTIN MD --09/07/23 1449 First Provider Evaluation TOMAS MARTIN MD --ED COURSEDiagnosis/Impression as of 09/07/23 1652DysuriaPulmonary emphysema, unspecified emphysema typeMetastatic malignant neoplasm, unspecified siteHematuria, unspecified typeProcedures:ProceduresMDM:Medical Decision MakingUA shows blood but no infectionsNeb given due to wheezing in lungs, improves HRCT scan shows likely metastatic cancer due ot lymph nodes and now spots in lungs.Patient given news, follow up with oncology.Offered leg bag and catheter as expect the hematuria to continue to clot and obstructPatient declined.dischargedProblems Addressed:Dysuria: acute illness or injuryPulmonary emphysema, unspecified emphysema type: acute illness or injuryAmount and/or Complexity of Data ReviewedIndependent Historian: spouseLabs: ordered.Radiology: ordered.ECG/medicine tests: ordered.RiskPrescription drug management.Flowsheet Documentation:Scoring Tools:No data recordedDisposition/Condition:ED DispositionED DispositionDisch - HomeConditionStableComment--Discharge Medications:Patient's MedicationsSTART taking these medicationsNo medications on fileCONTINUE taking these medications which have NOT CHANGEDALBUTEROL 2.5 MG /3 ML (0.083 %) NEBULIZER SOLUTION Inhale 3 mL every 4 (four) hours as needed for Wheezing or Shortness of Breath.ALBUTEROL 2.5 MG/0.5 ML NEBULIZER SOLUTION Inhale 0.5 mL every 6 (six) hours as needed for Wheezing.ALBUTEROL 90 MCG/ACTUATION INHALER Inhale 2 Puffs every 4 (four) hours as needed for Wheezing or Shortness of Breath.ASPIRIN 81 MG CHEWABLE TABLET Take 1 Tab by mouth daily.ATORVASTATIN 40 MG TABLET TAKE ONE TABLET BY MOUTH AT BEDTIMEBUSPIRONE 10 MG TABLET TAKE 1 TABLET BY MOUTH 3 TIMES A DAY NEEDED FOR ANXIETY/PANIC ATTACKFAMOTIDINE 20 MG TABLET Take 1 tablet by mouth in the morning.FOLIC ACID 1 MG TABLET Take 3 tablets by mouth in the morning.IPRATROPIUM 0.02 % NEBULIZER SOLUTION Inhale 2.5 mL every 6 (six) hours.IPRATROPIUM 17 MCG/ACTUATION INHALER Inhale 2 Puffs 4 (four) times daily.LEFLUNOMIDE (ARAVA) 20 MG TABLET Take 1 tablet by mouth in the morning.MELOXICAM 7.5 MG TABLET Take 1 tablet by mouth once daily as needed for Pain (scale 7-10) or Pain (scale 4-6) for up to 120 days.METOPROLOL TARTRATE 100 MG TABLET TAKE ONE TABLET BY MOUTH EVERY MORNING AND ONE IN THE EVENINGNEBULIZER & COMPRESSOR FOR NEB OSIEL Use as directedSERTRALINE 100 MG TABLET Take 1.5 tablets by mouth in the morning.TETRAHYDROZOLINE 0.05 % OPHTHALMIC SOLUTION Take 1 Drop in the morning and 1 Drop in the evening.TIOTROPIUM-OLODATEROL (STIOLTO RESPIMAT) 2.5-2.5 MCG/ACTUATION MIST Inhale 2 Puffs in the morning.VIT A/VIT C/VIT E/ZINC/COPPER (ICAPS AREDS ORAL) Take by mouth daily.START taking Modified Medications as PrescribedNo medications on fileSTOP taking these medicationsNo medications on fileFollow-up:Contact information for follow-upMimi Blakely MDSpecialty: FM-FAMILY MEDICINERelationship: PCP - [facility] AND [id number] Keith Hylton [facility] [address]Hejkx: [phone] signed by:Tomas Martin DO09/07/23 1652Tomas Martin DO09/07/23 1729 54271-4Rekfrvxnv Emergency department FfsgIG6103-29-28W54:29:54Physician Emergency department NoteTXT1.2.840.604119.1.13.104.2.7.2. 067891|[id number] for patient fahx30727-9Jpgdlquum department NoteLNNARRATIVEFormatted C-CDA narrative [address] SpldLbzqkkjbvVmlugocfoGEXH9995168422S HHDVUGOWOPZPHNSCTUXRE1242-86-48V73:29 :541.2.840.558520.1.72.3.15|1.2.840.1 11846.1.13.104.2.7.2.727879_[id number] 2 [facility] 2023-09-07 12:03:43 0652-41-24F55:03:43 Informed my name is Carmen Loza support nurse. Pt identified by name and . Instructed patient I am following up on a recent telephone communication regarding concerns of decreased urine output and blood clots.The patient states states she has been unable to fully empty her bladder all morning, reports getting up feeling like she had urgency to urinate, but only able to urinate a little bit each time she had the urge to go and void. Also, reports having pain and burning upon urination, and noted at first bright red blood. Then about 30 minutes after trying all morning she passed a large blood clot, not sure how big the clot was but was able to finally to completely empty her bladder, states this has never happened before.Instructed patient to go to the emergency room for evaluation, states she was going to go to [facility] in [place]. Informed the patient, I would notify Dr. Loza's team. 95760-8Tgzcprpeo encounter KozoAM7693-67-86M35:18:09Telephone encounter NoteTXT1.2.840.238431.1.13.104.2.7.2. 695443|[id number] for patient vzyh73997-7OoxgFDXUUHWJSHLZcsetngvv C-CDA narrative [id number] E Gingery RN[id number] AFKMZZLFBUCAIPKBMJKYB8746-11-85H65:18 :091.2.840.219381.1.72.3.15|1.2.840.1 77591.1.13.104.2.7.2.727879_[id number] 4 Carmen Rivera RN [facility] 2023-09-07 10:41:44 4738-45-20L49:41:44 Patient called and requested to speak with Nurse. PSC informed Management patient did not give symptoms. Management contacted patient to identify symptoms needing to be addressed. Patient verified HIPPA. Patient stated she has decreased urine output and blood clots during urination. Patient stated she thinks she should go to ER. Informed patient she may go if she feels it is a medical emergency and I will inform clinical team. Patient agreed to go to ER. Please contact patient for follow-up.Thank you. 70611-4Kfsxaemyg encounter PsrmEM1430-49-07H40:09:06Telephone encounter NoteTXT1.2.840.271561.1.13.104.2.7.2. 403263|[id number] for patient ldbw15524-4ZdjqAJEMLRQDKABXamrhaecs C-CDA narrative [id number] N [address]TXTX[address]5577555U NHLVCFGUITBXLYTUWJLFQ2421-29-70P27:09 :061.2.840.474038.1.72.3.15|1.2.840.1 28647.1.13.104.2.7.2.727879_[id number] 2 Chichi Kaufman [facility] 2023-08-22 09:05:09 1819-55-50L20:05:09 Refill sent to pharmacy 08098-0Tiardnlgy encounter OisvNV6777-53-72F91:05:25Telephone encounter NoteTXT1.2.840.446150.1.13.104.2.7.2. 336634|[id number] for patient hhuy09798-0JulnHCNVVTWVVNGSsayrubto C-CDA narrative [address]TXTX[address]5577555U DOWQNBBYSBNCGWGRHIZWO0843-42-00W26:05 :251.2.840.027667.1.72.3.15|1.2.840.1 44192.1.13.104.2.7.2.727879_[id number] 6 [facility] 2023-08-19 13:32:33 9098-07-50M07:32:33 Franck Crow is a 83 year old femalePt is calling to request albuterol spray, Pt states, pharmacy has not received prescription, [id number] [place], [place] - [address] [place] [address] Bee Vgt: [phone] signed by Jyoti Abraham at 08/19/2023 1:33 PM YYK39982-5Kblubqhnj encounter VktjPP9419-38-33Q82:33:11Telephone encounter NoteTXT1.2.840.788943.1.13.104.2.7.2. 812865|[id number] for patient ddkp51847-9JbwpUZQJXXIBYAVZvenxfdgz C-CDA narrative tpwp985471075Fpezir N Fields[id number] MEUMKFPFUBYCBUBCYYEEJ6665-41-28V50:33 :111.2.840.535457.1.72.3.15|1.2.840.1 85427.1.13.104.2.7.2.727879_[id number] 9 Jyoti Abraham [facility] 2023-08-17 10:54:52 5559-34-69Q39:54:52 Informed my name is Carmen Loza support nurse. Pt identified by name and . Spoke with the patient, states to reschedule her labs and follow up appointment with Dr. Loza, informed the patient that I would have someone contact her to assist with rescheduling both her appointments.Patient acknowledged understanding of all the information provided by the nurse. 65535-8Hlvlufwke encounter XzfaHJ7769-76-40M48:00:35Telephone encounter NoteTXT1.2.840.769228.1.13.104.2.7.2. 447417|[id number] for patient ikpr25824-7JbjoKTOYAOCLCOYWhffrkycy C-CDA narrative [id number] E Gingery [address] StreetAkesMqhpjwqhcBoqtzogtmTLTU9012161762V ZBRGBLPSCSGPNELYHVKGW2955-55-92I08:00 :351.2.840.087353.1.72.3.15|1.2.840.1 67983.1.13.104.2.7.2.727879_[id number] 8 Carmen Rivera RN [facility] 2023-08-16 16:30:49 2370-45-91X26:30:49 Patient returning call to supporting nurse Carmen. 32728-5Wfqdxomhx encounter QmrxJL2381-23-23P94:31:09Telephone encounter NoteTXT1.2.840.611804.1.13.104.2.7.2. 384830|[id number] for patient epta60555-8TmuxJNKXXZIBSYPGifoufjem C-CDA narrative sblx384329455Tegd Garrick[address] ZmvnDonagllwfDjwchlzbqHXWE8624594938N KVAZEYZKMNSCPIOQADWCB6733-27-80C18:31 :091.2.840.593773.1.72.3.15|1.2.840.1 35043.1.13.104.2.7.2.727879_[id number] 3 Idalia Mccauley [facility] 2023-08-16 15:28:31 4217-03-50F55:28:31 Left detailed voicemail on patient phone with the purpose of the call and the contact information for pt to return call [place] [address]-1Vakjxgmgg encounter NirpVQ9244-80-17P64:29:16Telephone encounter NoteTXT1.2.840.053632.1.13.104.2.7.2. 563548|[id number] for patient pmqi64950-2GqpdCEKOPSVDPHMPmgfkatie C-CDA narrative ztbe767304562Gvcdok E Gingery [address]TXTX[address]5577555U XVZGSCUCKRHTMFKOWLJVP8965-64-15T49:29 :161.2.840.118236.1.72.3.15|1.2.840.1 46453.1.13.104.2.7.2.727879_[id number] 4 Carmen Rivera [facility] 2023-08-15 09:07:09 4746-25-94Y95:07:09 The patient would like to speak with Dr Loza, the last visit she thought she was told that he had done all he could she would like to have a better understanding of should she be seen. 44441-7Nmzdolhrs encounter HmgfLV9176-38-82Q34:08:50Telephone encounter NoteTXT1.2.840.686159.1.13.104.2.7.2. 726886|[id number] for patient royu03204-0TkviANGJNVROHJKRlpbecjnu C-CDA narrative qqea135035431Uqqsf E. Williams[address]TXTX7755577555U DDGMLAOQFKQVPXWVZCNWW0577-53-94I16:08 :501.2.840.052565.1.72.3.15|1.2.840.1 17728.1.13.104.2.7.2.727879_[id number] 7 Dorinda Mao [facility] 2023-07-12 10:26:23 3694-17-47V95:26:23 Called and spoke with patient - requesting recommendations for anxietyReports she has been taking medications as prescribed with no relief.Reviewed last OV notes with patient2. AnxietyChronic, improving.Increase to sertraline 100 mg once daily.-Increase from sertraline from 50 mg tablet 1.5 tablets daily to SERTraline 100 mg tablet; Take 1 tablet by mouth in the morning. Dispense: 90 tablet; Refill: 1Patient reports she has been taking Sertraline 100 mg Daily.Patient had her read the directions on the bottle - he read the instructions were for patient to take Sertraline 100 mg BID.Not listed on notes or RX listed, patient advised to take medications as prescribed, advised to bring in her medication bottles to her MAR 04 for reviewVerbalizes understanding. 98212-4Mxrwhmjna encounter KdmvZY2897-61-69Z67:38:34Telephone encounter NoteTXT1.2.840.203699.1.13.104.2.7.2. 082962|[id number] for patient cajh20773-4PltvWKILQZJQBIAMjogkfxjd C-CDA narrative text[address] XboxB[id number] MHUYVELMKHGZHEWNLJFTZ6636-59-46M95:38 :341.2.840.083573.1.72.3.15|1.2.840.1 36595.1.13.104.2.7.2.727879_[id number] 2 [facility] 2023-07-12 09:50:16 9200-88-56J15:50:16 Copied from [facility] #[id number]. Topic: Clinical - Medical Advice>> Jul 12, 2023 9:48 AM Patient Blood Bank Order Control Clerk wrote:Franck Crow is a 83 year old femalePt takes sertraline and buspar but feels that she needs a third medication. She woke this morning and start having anxiety. She is asking if the doctor would prescribe a 3rd medication. She has an upcoming appt on 07/14 Please call [phone]. 76420-3Kscdnxoqq encounter AbfcKJ2797-04-02M46:53:14Telephone encounter NoteTXT1.2.840.195265.1.13.104.2.7.2. 170941|[id number] for patient zkyy67759-8BuyrKPRUAEZWFQBSjofkdzqw C-CDA narrative nkub089693276Aqsofajg Tha[id number] YJLXTYWWBZLIGQOVSZUCU9927-95-84D56:53 :141.2.840.334074.1.72.3.15|1.2.840.1 92811.1.13.104.2.7.2.727879_[id number] 8 [facility] 16:47:07 2177-61-82L79:47:07 Attempted to speak to Franck Crow with no success- Left VoicemailIf patient returns call please ask what medication she is referring to. 14321-2Zpygpvmbl encounter HrqwYR3132-00-78U00:54:38Telephone encounter NoteTXT1.2.840.235598.1.13.104.2.7.2. 653086|[id number] for patient kwrv44037-6EnvpQYWAEYKGQWGLjmwxhrhk C-CDA narrative gpdb954932083Qovts L Garza [address]TXTX[address]5577555U NQFEAVNRYNXOSVDSYKDMC1400-85-47B67:54 :381.2.840.238946.1.72.3.15|1.2.840.1 64255.1.13.104.2.7.2.727879_[id number] 6 Kathi Oshea RN [facility] 2023-07-08 16:29:16 7280-22-69Z12:29:16 Copied from [facility] #[id number]. Topic: Clinical - Missed Call from Provider>> Jul 08, 2023 4:26 PM Patient Blood Bank Order Control Clerk wrote:Franck Crow is a 83 year old femaleReturning a call from Dr. Blakely's nurse. Please call patient back. Thank you. 93751-3Uszbpokfg encounter DwxuFI1496-38-40L37:30:17Telephone encounter NoteTXT1.2.840.164328.1.13.104.2.7.2. 638333|[id number] for patient pfjz28993-0AuuxVEAVAMUOFRYAhttrnpbg C-CDA narrative yayx951200579Titbdck R Hughes[address] OxaeRfbmyqxznCdoaopjhgJDXE9535654821A HLXPXYMSEDDAZTKHAEYND3612-32-04P80:30 :171.2.840.169679.1.72.3.15|1.2.840.1 37611.1.13.104.2.7.2.727879_[id number] 7 Dayanna Perez [facility] 2023-07-08 13:34:48 5360-87-71L25:34:48 2. AnxietyChronic, improving.Increase to sertraline 100 mg once daily.-Increase from sertraline from 50 mg tablet 1.5 tablets daily to SERTraline 100 mg tablet; Take 1 tablet by mouth in the morning. Dispense: 90 tablet; Refill: 1Last timeSERTraline 100 mg tablet 90 tablet 1 06/13/2023 -- --Sig: Take 1 tablet by mouth in the morning.Attempted to speak to Franck Crow with no success- Left Voicemail 56079-7Cgixgyyeh encounter LpbaBA3905-38-69D58:41:02Telephone encounter NoteTXT1.2.840.997502.1.13.104.2.7.2. 008162|[id number] for patient qvig29323-9OpjuWGQTPNYUKISEgofuofry C-CDA narrative text[id number] XFFSTYKQPUNCJRYFWVCPE9223-96-94B85:41 :021.2.840.692450.1.72.3.15|1.2.840.1 01671.1.13.104.2.7.2.727879_[id number] 4 [facility] 2023-07-08 13:08:35 8385-74-06S28:08:35 Franck Crow is a 83 year old femalePt is calling stating she is needing a refill on her medication for anxiety attacks, pt states she does not know the name of med but pt states she takes it once a day.Pt states she does not have any of those meds left.Please adviseKR[id number] [address]: [phone] Krltcovcoxgwms signed by Nickolas Dunham at 07/08/2023 1:12 PM [place]56927-5Nwdyyllxf encounter TmykBN2051-46-40A26:12:00Telephone encounter NoteTXT1.2.840.713309.1.13.104.2.7.2. 996748|[id number] for patient mbhj18252-7OaiiTCPPLZDQTGLQrpnntjmz C-CDA narrative rgju544568800HkcdrNickolas Dale[address]TXTX[address]5577555U EUPSSNTCAETQFBQLYFXRP3486-73-28G73:12 :001.2.840.587098.1.72.3.15|1.2.840.1 41019.1.13.104.2.7.2.727879_[id number] 2 Nickolas Lockwood [facility] 2023-06-24 10:46:29 8965-71-81Q39:46:29 ALEXEY 05/27/23NOV 07/15/23Last Filled 05/27/23 Qty 30 With 1 refill(s)Okay to refill? 98170-3Jbzspozhw encounter YqimIL5736-55-43J70:46:49Telephone encounter NoteTXT1.2.840.051356.1.13.104.2.7.2. 523341|3285617217TBRmecdxoct for patient oqiq41208-4FijlSSLQCRGQINNWvghsmjea C-CDA narrative aoyu661341632Zvzhzoy N Ware [address] NztzNmpgjckctOreewhbiwBAPJ8027269169G GQIEJALFZEXWTIWUBKWPD2805-65-75L89:46 :491.2.840.381457.1.72.3.15|1.2.840.1 14866.1.13.104.2.7.2.727879_[id number] 6 Vickie Arora MA [facility] 2023-06-17 12:42:43 6854-02-24B59:42:43 Patient informed on message from provider below. 75300-5Kivjuunct encounter TiwwAR9780-51-89O91:43:09Telephone encounter NoteTXT1.2.840.256058.1.13.104.2.7.2. 409908|[id number] for patient xkft79441-6LjrtOZXXMFKRKXQDzmxpjbng C-CDA narrative nywb313901245Odeag L Garza RNUT[address]TXTX[address]5577555U EIZAVFFVVUKJWWQUARIVR4056-43-29K65:43 :091.2.840.163438.1.72.3.15|1.2.840.1 96696.1.13.104.2.7.2.727879_[id number] 1 Kathi Oshea RN [facility] 2023-06-16 16:25:34 1505-48-28E55:25:34 Attempted to speak to Franck Crow with no success- Left Voicemail 92098-6Nowvmeelp encounter VagkNZ5393-38-20L05:25:57Telephone encounter NoteTXT1.2.840.901673.1.13.104.2.7.2. 693481|[id number] for patient kwtq04236-2UhqxECKDFHGSNYCLxzcvmehf C-CDA narrative text[address]TXTX7755577555U CGAJDRVBEYWNGPSTLNDKD8433-92-71E45:25 :571.2.840.876719.1.72.3.15|1.2.840.1 52600.1.13.104.2.7.2.727879_[id number] 0 [facility] 2023-06-16 15:06:54 0710-81-93P26:06:54 There are no interactions 60088-2Glkicftgo encounter JcnzBG5186-54-45A02:07:06Telephone encounter NoteTXT1.2.840.910519.1.13.104.2.7.2. 872135|[id number] for patient gnyu63075-4DyxwVVXIHGEZRRSPgtmdckpj C-CDA narrative text[address]TXTX7755577555U SSYXMPKGRBPPXYJKALZDR1730-82-85N02:07 :061.2.840.550498.1.72.3.15|1.2.840.1 13480.1.13.104.2.7.2.727879_[id number] 8 [facility] 2023-06-16 14:35:31 1006-08-22W59:35:31 Routing to provider . Please advise 08342-4Aejnetmao encounter PbxkYQ3173-32-61Z75:35:48Telephone encounter NoteTXT1.2.840.953673.1.13.104.2.7.2. 659219|4121343750AWXufiwwjfu for patient rpkf88024-6XcdcKGAEVLKOUWZPijrxtvsf C-CDA narrative pxnq150510399Bbquctusandip Harper MA[id number] HQPJNIMZRIUECYWVYHSUK5683-69-49H14:35 :481.2.840.612329.1.72.3.15|1.2.840.1 73201.1.13.104.2.7.2.727879_[id number] 5 Kassy Harper MA [facility] 2023-06-16 13:40:38 8252-29-09X71:40:38 Franck Crow is a 83 year old femalePt called because she got some OTC acid reflex medication and she wants to know if its ok to take it with her other medication. Please advise.calcium carbonate 500 mg 30589-7Vasiypuew encounter EwdySH6617-55-35T10:42:31Telephone encounter NoteTXT1.2.840.928804.1.13.104.2.7.2. 060903|5926508811UPGkejaiyjv for patient ryui93069-7ClbfVMXTTNEZBDUFqpsxfsue C-CDA narrative npya303528638Wvtgdlny StanceUT02 [address] StreetTXTX[address]5577555U MYTPMOHJRGXSLIQGBOTSH5310-62-15A58:42 :311.2.840.560065.1.72.3.15|1.2.840.1 87431.1.13.104.2.7.2.727879_[id number] 2 Conrado Rodarte [facility] 2023-06-13 09:02:49 6315-43-55B54:02:49 Franck Crow is a 83 year old femalePt called because she is trying to get a refill on a medication and [facility] said she had no more refills. Pt said she only has one more pill left please adviseSERTraline 100 mg tabletSELECT [facility] [id number] [address]kaitlyn CastorenaPhone: Gkccmaulzcippp signed by Conrado Rodarte at 06/13/2023 9:04 AM FSM24200-8Anggxxilt encounter VmxkCZ4189-20-96M19:04:31Telephone encounter NoteTXT1.2.840.242667.1.13.104.2.7.2. 859625|[id number] for patient wxvk83535-5LvveKBSSUHJCKGWLnoosfdym C-CDA narrative jose[address] StreetTXTX7755577555U ZBJBNVVFNVZFBUIZZVWLZ8507-23-50W66:04 :311.2.840.309114.1.72.3.15|1.2.840.1 82974.1.13.104.2.7.2.727879_[id number] 5 [facility] 2023-06-10 15:08:44 4630-51-96O76:08:44 Patient given printed and verbal discharge instructions regarding SOB, encouraged hydration and proper nutrition.Prescriptions provided: N/APatient is awake alert oriented, respirations even & unlabored, skin warm & dry, color appropriate for race, moves all extremities well, patient encouraged to follow up with PCP and keep all appropriate appointments as otherwise scheduled or to return to ED for new, prolonged, or worsening of symptoms.PIV DC'd without complications, site appears healthy, hemostatic, pressure dressing applied to site, catheter intact.Patient departed ED ambulatory with steady gait, in possession of all belongings. [address] HnpyKM9534-92-36J59:09:37[facility] NoteTXT1.2.840.853731.1.13.104.2.7.2. 195343|[id number] for patient xbtd65758-3WsoxLTTQMJXBLWFFbcsqcmfn C-CDA narrative textUT[address] XhjyZphynxfnsFmydiqzmaYONT8395467801W LZWIWTEGJLMWLYZXKHPUP4346-75-28F32:09 :371.2.840.112461.1.72.3.15|1.2.840.1 00427.1.13.104.2.7.2.727879_[id number] 4 [facility] 2023-06-10 14:13:19 4761-54-40Y52:13:19 Pt provided with bedside commode [address]31-3Thiqvaxmu[address] YzgpDN7732-99-89W32:13:26[facility] NoteTXT1.2.840.436555.1.13.104.2.7.2. 832985|[id number] for patient ncmm41332-9FpxsWYDQBWVHHONOqxeyzspk C-CDA narrative [id number] A Brown RNUT[id number] ZFSXSGBVCQNHVHMPGMEJS4677-95-15V12:13 :261.2.840.109949.1.72.3.15|1.2.840.1 30149.1.13.104.2.7.2.727879_118150 3 Michael Hayes RN [facility] 2023-06-10 12:38:40 6055-40-28E93:38:40 Pt reporting she is breathing easier and less anxious after neb treatment; [place] 99% [place] 3[place]. [address]-5Pspxafcgq department AievMZ4901-92-42W33:39:15Emergency department NoteTXT1.2.840.445822.1.13.104.2.7.2. 134950|[id number] for patient nbzf72730-2ChqtYIBKWTAIZLSAbtdpyoby C-CDA narrative text[id number] PAMURPNDJHCCOCIEISLEZ7284-02-59J94:39 :151.2.840.012582.1.72.3.15|1.2.840.1 55579.1.13.104.2.7.2.727879_[id number] 7 [facility] 2023-06-10 11:41:00 8944-35-90R70:41:00 Franck Crow is a 83 year old female who presents to ED via [facility] for c/o shortness of breath which started last night. Went to PCP this morning before being sent here; received duo neb from EMS; visibly labored respirations at this time. 27640-1Igmifsaro department QfpgZG4879-15-39O21:44:38[facility] NoteTXT1.2.840.713163.1.13.104.2.7.2. 844741|[id number] for patient vevk23377-0ZhghWVCFRDKKIOKAooilgvid C-CDA narrative text[id number] UEBPCOEXYQPGXCTXAFMZR1169-03-02L33:44 :381.2.840.210638.1.72.3.15|1.2.840.1 09716.1.13.104.2.7.2.727879_[id number] 9 [facility] 2023-06-10 11:28:44 2495-79-25K37:28:44 Franck Crow is a 83 year old female presents to ED triage with chief compliant of SOB. Pt states it started last night, went to her PCP and was sent here. Pt received a duo neb on the way here. AAOx4. Skin warm and dry. VSS. RR labored.Roomed for eval 65092-2Djntmfmih department Triage eccnAP3319-99-51H97:30:41[facility] Triage noteTXT1.2.840.327151.1.13.104.2.7.2. 315257|[id number] for patient gbyd21058-4Tpewgkkvi department NoteLNNARRATIVEFormatted C-CDA narrative [id number] J Khandros RNUT[address] StreetTXTX[address]5577555U AYVQGAVELRWSBIAMHXUOB0317-14-75U40:30 :411.2.840.192408.1.72.3.15|1.2.840.1 52857.1.13.104.2.7.2.727879_[id number] 0 Madhuri Powell RN [facility] 2023-06-09 14:00:23 1657-86-69U54:00:23 Hakeem, pt has an appt 06/10/2023 with Cielo Kong MD and they have an HMO insurance policy and no referral, pls assist with obtaining this referral. Thank you. 38106-4Ibyhlwnyo encounter SxnlOP6962-34-70T49:00:57Telephone encounter NoteTXT1.2.840.447666.1.13.104.2.7.2. 054982|[id number] for patient ojic93301-4SoysGEFOUXGPKWHLevhrcvit C-CDA narrative [id number] R Cook[address] SzwvGucqdtjocNknrbizhdBCOX2149414963A OIZYRLFLVTNXPRULTNGSJ5794-05-19G69:00 :571.2.840.712290.1.72.3.15|1.2.840.1 06177.1.13.104.2.7.2.727879_[id number] 4 José Luis Liu [facility] 2023-06-08 08:06:54 7656-76-50P49:06:54 Franck Crow is a 83 year old femalePt is needing a refill of SERTraline 100 mg tablet. Pt states she has about 3 left. Please advise.[facility] [id number] - [facility] - [place] [address]Ltjuw: [phone] Lilrpatvtdgmpa signed by José Miguel Kaur at 06/08/2023 8:08 AM TOH99843-8Rzuaagxgo encounter HcabIS9354-64-50P29:08:05Telephone encounter NoteTXT1.2.840.760672.1.13.104.2.7.2. 510800|1295660081EBLitfrrzvp for patient nimy53808-8LqakZQEFPEWLUVXQcqynaiie C-CDA narrative textUT56 Pat[address] StreetPbclPnpmbhhszTmeqjfyupUSHX4428036676X DCAMZGTGBUZLJVAUCGRZW2627-72-63F25:08 :051.2.840.271703.1.72.3.15|1.2.840.1 90220.1.13.104.2.7.2.727879_[id number] 4 [facility] 2023-06-03 16:04:28 7093-08-32O32:04:28 Images from the original note were not included.Received refill request for:Requested PrescriptionsPending Prescriptions Disp RefillsATORVASTATIN 40 mg tablet [Pharmacy Med Name: ATORVASTATIN 40 MG TABLET] 90 tablet 1Sig: TAKE ONE TABLET BY MOUTH AT BEDTIMELOV: 01/31/23 (Virgilio)NOV : 06/07/23 (Kylie)EK11/01/22Labs: 08/26/22 (Lipid Panel)Refill approved in compliance with cardiology guidelines.Pharmacy:[facility] [id number] [address] [facility] [place] [address]Xceks: [phone] Tfcgxpcgeuyhsa signed by Dominick Dowell at 06/03/2023 4:11 PM XAW78780-8Lthchkhmb encounter IjnoWL5688-57-22K83:11:37Telephone encounter NoteTXT1.2.840.049611.1.13.104.2.7.2. 390101|[id number] for patient vpls69268-3TovxFMLOBZUEGNDPefiugfuw C-CDA narrative [id number] M. [address] LjaaEoyadscelJdvigwleqWSFH5976655278Q HPRQCIZWZGRPZLPKPFTTU2347-59-60B38:11 :371.2.840.161672.1.72.3.15|1.2.840.1 29963.1.13.104.2.7.2.727879_[id number] 8 Dominick Dowell [facility] 2023-05-31 15:27:25 4075-00-93J30:27:25 Message sent via [employer] concerning question. 76443-0Kdhsimszo encounter UphwYQ1204-82-34U30:27:40Telephone encounter NoteTXT1.2.840.609614.1.13.104.2.7.2. 605184|1992907604FFKbikeryar for patient tbxo86765-3MfmlNJIIALTGGBMGscgtzvcd C-CDA narrative eahb839892939Iytgsdp L Klebieko RN[address] StreetBcwqDywrwvoqpWfmlfsbyxHVMM6342380219I QYSCYEDFJOKTWDGLASALZ8639-86-70J03:27 :401.2.840.017672.1.72.3.15|1.2.840.1 80148.1.13.104.2.7.2.727879_[id number] 8 Dominique Snider RN [facility] 2023-05-31 10:14:44 2750-35-12F49:14:44 ALEXEY- 4PLAN-Discussed options including conservative management with activity modification/ice & heat/NSAIDs or hip CSI-Meloxicam 7.5 mg daily PRN prescribed-Refer to PT for hip strengthening and ROM-F/u PRN with APPMedication- Meloxicam for inflammation [facility] 05525-2Tmjsavelb encounter LoofUT3185-81-20Y39:16:58Telephone encounter NoteTXT1.2.840.517965.1.13.104.2.7.2. 419737|6212046961YLWtstremoe for patient crac48357-8OpyeMXCOIIBIBPFLjgvllhoa C-CDA narrative [address] WvkdNtdhemhthXvlatkposZXLZ8179741380H MQUASNOLGBFXQAJPEJDWI4337-89-27G59:16 :581.2.840.730202.1.72.3.15|1.2.840.1 94289.1.13.104.2.7.2.727879_[id number] 4 [facility] 2023-05-31 08:46:12 5244-92-09B41:46:12 Incoming CallProvider: Greg Jimenez, MDDate of Surgery (if applicable):No surgery foundSurgical Procedure (if applicable): No surgery foundLast Office Visit Date: 05/24/2023Follow up Date: noneDocumentationPt calling today to speak to a nurse to confirm medication prescribed on her last visit. She was told she would be getting medication for inflammation. She would like to make that was correct .Please call ptPreferred Pharmacy:[facility] [id number] [place] [address] Bgxkvpzwt: Payor: [facility] - MANAGED MEDICARE / Plan: KALLI/LOREN MEDICARE ADVANTAGE / Product Type: Medicare Adv HMO / Recent/Fu ture Schedule Appointments at the time of this encounterRecent VisitsDate Type Provider Dept05/24/23 Office Visit Greg Jimenez MD Ortho Faculty-PcpShowing recent visits within past 365 days and meeting all other requirementsFuture AppointmentsNo visits were found meeting these conditions.Showing future appointments within next 365 days and meeting all other requirements 02156-6Zsetxwqeb encounter WqihYC6095-75-89M26:51:27Telephone encounter NoteTXT1.2.840.471372.1.13.104.2.7.2. 804845|8554597202PPKkszjcamo for patient fiwx66776-2LgflEUHOABWRKHWJpbuognhg C-CDA narrative sxgd304268743Htkrt D [address]TXTX[address]5577555U GINIBHJGVKSHLDLVGMSYD9426-77-42J06:51 :271.2.840.013900.1.72.3.15|1.2.840.1 58399.1.13.104.2.7.2.727879_[id number] 6 Jaycee Kerns [facility] 2023-05-27 10:56:49 9262-06-37B86:56:49 Spoke w/patient and confirmed telehealth appt and explained process. 87384-2Qaqitwmvc encounter YislIK9093-04-54P83:57:14Telephone encounter NoteTXT1.2.840.476995.1.13.104.2.7.2. 013065|7242664575NWLggcyrojv for patient hljx66716-5ZgheCJEFMEIIDRZRnbahlsbl C-CDA narrative xqgm719180341Ldb [id number] GZODBMRRKKLJSURUHXNGF3106-83-37K26:57 :141.2.840.781362.1.72.3.15|1.2.840.1 10335.1.13.104.2.7.2.727879_[id number] 7 Jenna Rocael [facility] 2023-05-27 08:08:38 7073-01-84O98:08:38 Pt calling back. Pt states her phone does have video capability. Please advise. 12149-8Xvdhniend encounter FgyeWL0483-09-46L18:09:19Telephone encounter NoteTXT1.2.840.726429.1.13.104.2.7.2. 078626|6186040079ENOjutdbenu for patient nsou24197-6AnikXYIYEULBCQLIcyvaqixv C-CDA narrative msef075970179Eyaaeho A [address] ZdpvMmfkmqmssUpvniranvUIEG9755734058N FBGEBZAQMKTHSIISGAQOT4715-27-10S96:09 :191.2.840.205316.1.72.3.15|1.2.840.1 60053.1.13.104.2.7.2.727879_[id number] 5 Starla Roxy Deangelo [facility] 2023-05-26 15:14:33 1668-25-13M18:14:33 Left msg on patients VM, need to verify that her phone does have video capability so that we can turn into a tele health visit 23834-2Exdrmjdlg encounter YherMR1176-53-54A03:15:19Telephone encounter NoteTXT1.2.840.200507.1.13.104.2.7.2. 389208|8371841064AWQbsrjhexe for patient xbod99059-5IczpNLTFWVHGVCFNnvajcaqb C-CDA narrative text[address]TXTX7755577555U VSCCWYRPFFBJQJFFPLBMC0426-44-56Q23:15 :191.2.840.285436.1.72.3.15|1.2.840.1 81548.1.13.104.2.7.2.727879_[id number] 1 [facility] 2023-05-26 12:48:02 9277-58-36P66:48:02 If insurance approves, okay to switch to telehealth/video appointment. 02603-1Zdfnohgdt encounter AqfaEY8751-98-36V14:49:29Telephone encounter NoteTXT1.2.840.977608.1.13.104.2.7.2. 170518|3709545764SFOjixtfpqn for patient ctgc65921-1KjlcYPSDDRYBPIPTebcwulju C-CDA narrative [address]TXTX[address]5577555U DFHSOPKUHNRMTLUKJHFGT9936-69-54I20:49 :291.2.840.715776.1.72.3.15|1.2.840.1 55490.1.13.104.2.7.2.727879_[id number] 6 [facility] 2023-05-25 10:18:41 1383-38-51P39:18:41 Routing to providerPlease advise. 84546-3Jkfxvdfgz encounter AdllJY8294-67-20M67:18:57Telephone encounter NoteTXT1.2.840.482195.1.13.104.2.7.2. 025767|4004232635LDKdjqgoxak for patient vxuu42622-0UczoUDVUZHCMFJWUillxdsnp C-CDA narrative ohsy894656020Fupwqa T Tamez [address]TXTX[address]5577555U HNZLJOUWFVDLMAMKWRCYK3836-25-92Z80:18 :571.2.840.872049.1.72.3.15|1.2.840.1 55716.1.13.104.2.7.2.727879_[id number] 8 Ly Williamson [facility] 2023-05-25 09:30:24 1310-39-05G39:30:24 Franck Crow is a 83 year old femalePt is requesting her appt for Tuesday be changed to a telehealth due to weather and her living so [place] away 19497-4Qznmccxwj encounter FperDK1348-99-85N36:31:56Telephone encounter NoteTXT1.2.840.767450.1.13.104.2.7.2. 977302|7486645553UYHdzsbtfuh for patient ofui46620-4HhmpRHCEFTQFWUIJkehzhymk C-CDA narrative xjlo250394734Acwumhi A [address]TXTX[address]5577555U MHXYZDKNJGEDGERWZJQSW8911-05-19B84:31 :561.2.840.090753.1.72.3.15|1.2.840.1 95389.1.13.104.2.7.2.727879_[id number] 5 Vickie Waltonarco [facility] 2023-01-14 08:34:50 8675-84-46Y54:34:50 Thank you! 77719-6Xvgpofwxt encounter ArxuBO4176-85-41R29:34:57Telephone encounter NoteTXT1.2.840.181419.1.13.104.2.7.2. 246880|3175421363UKPnulfuvbr for patient hxii23928-6GqvyCPSSQUEQJG[address]TXTX[address]5577555U SKSPHLUAEMUEXFOVJQDID7571-15-79N46:34 :571.2.840.590892.1.72.3.15|1.2.840.1 40022.1.13.104.2.7.2.727879_[id number] 4 [facility] 2023-01-13 10:51:34 5581-44-50P17:51:34 Spoke with patient and she is scheduled for jan [address] [facility]. 87902-2Dcpxpnblf encounter YfbnDX7823-30-71P24:52:15Telephone encounter NoteTXT1.2.840.848529.1.13.104.2.7.2. 244387|5361643366VGRfwwxpfoc for patient spbj01823-2IujbTM803120099Dvvueuo L [address]TXTX[address]5577555U GLRAKSVIWOTVCHXYBXEZH6183-86-17D04:52 :151.2.840.572851.1.72.3.15|1.2.840.1 85145.1.13.104.2.7.2.727879_[id number] 6 Pita Haile [facility] 2023-01-13 10:13:04 7253-86-95B82:13:04 Requested Prescriptions Pending Prescriptions Disp Refills foLIC acid 1 mg tablet 180 tablet 1 Sig: Take 3 tablets by mouth in the morning. There is no refill protocol information for this order Recent Visits08/12/2022Future Appointments01/21/2023 Orders Only on 01/04/2023 Component Date Value FVC Actual 01/04/2023 2.22 FEV1 Actual 01/04/2023 0.62 FEV1/FVC Actual 01/04/2023 28 No results displayed because visit has over 200 results. Purchasing Buyer Visit on 08/26/2022 Component Date Value CHOL 08/26/2022 147 HDL 08/26/2022 70 HDLC RATIO 08/26/2022 2.1 TRIG 08/26/2022 100 LDL CHOL 08/26/2022 57 VLDL 08/26/2022 20 WBC 08/26/2022 8.74 RBC 08/26/2022 4.03 HGB 08/26/2022 12.2 HCT 08/26/2022 39.7 MCV 08/26/2022 98.5 (H) MCH 08/26/2022 30.3 MCHC 08/26/2022 30.7 (L) RDW-SD 08/26/2022 55.0 (H) RDW-CV 08/26/2022 15.3 PLT 08/26/2022 283 MPV 08/26/2022 9.3 (L) NRBC/100 WBC 08/26/2022 0.0 NRBC x10^3 08/26/2022 <0.01 GRAN MAT (NEUT) % 08/26/2022 71.6 IMM GRAN % 08/26/2022 0.50 LYMPH % 08/26/2022 13.5 MONO % 08/26/2022 8.5 EOS % 08/26/2022 5.4 BASO % 08/26/2022 0.5 GRAN MAT x10^3(ANC) 08/26/2022 6.27 IMM GRAN x10^3 08/26/2022 0.04 LYMPH x10^3 08/26/2022 1.18 (L) MONO x10^3 08/26/2022 0.74 EOS x10^3 08/26/2022 0.47 (H) BASO x10^3 08/26/2022 0.04 NA 08/26/2022 137 K 08/26/2022 4.4 CL 08/26/2022 99 CO2 TOTAL 08/26/2022 32 (H) AGAP 08/26/2022 6 BUN 08/26/2022 15 GLUCOSE 08/26/2022 104 CREATININE 08/26/2022 0.81 TOTAL BILI 08/26/2022 0.7 CALCIUM 08/26/2022 9.5 T PROTEIN 08/26/2022 7.4 ALBUMIN 08/26/2022 4.0 ALK PHOS 08/26/2022 91 ALTv 08/26/2022 16 AST(SGOT) 08/26/2022 21 eGFR 08/26/2022 68.0 CRP 08/26/2022 2.5 (H) ICD-10-CM 1. 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 532271|4218173189ZCUivdqfzul for patient zsle87292-1RwaxIIYOOJPLZF[address] UuufLgaosbikzTsfuzfoqsBAXV0121772690V XCQHLSSMCVBAXQJFXUUVJ5433-64-83A16:14 :371.2.840.779245.1.72.3.15|1.2.840.1 23399.1.13.104.2.7.2.727879_[id number] 1 [facility] 2023-01-13 10:07:56 5902-44-87B47:07:56 Franck Crow is a 82 year old femalePatient is calling requesting orders for DSE to be placed as discussed at [facility].Please advise, thanks! 41506-1Nksdxpolg encounter UpxkQT4607-01-50Z67:09:40Telephone encounter NoteTXT1.2.840.604477.1.13.104.2.7.2. 707818|9198259252AQRyyhzswmz for patient xlqr85810-7AcgjEX254626681Pemcfqquj A [address]TXTX[address]7555U TKYTZQPRCJSRQGZNVICIF4586-03-32Z48:09 :401.2.840.973978.1.72.3.15|1.2.840.1 33061.1.13.104.2.7.2.727879_[id number] 5 Anamika Ramsey [facility] 2023-01-06 08:42:20 0569-15-10B08:42:20 Duplicate encounter. Form was faxed back 01/05/23. 12158-1Flayuaxfl encounter ImbsXQ8218-41-49X66:42:41Telephone encounter NoteTXT1.2.840.612850.1.13.104.2.7.2. 308386|0283636071TWYrqdoiubp for patient vddy83206-6EjiaOG141265547Pyviuh Huckabee RN[address]TXTX[address]5577555U LPTOYDTESXIOBURJSLLJK3256-59-86O71:42 :411.2.840.555339.1.72.3.15|1.2.840.1 20213.1.13.104.2.7.2.727879_[id number] 3 Mi Santos RN [facility] 2023-01-06 08:03:05 7641-53-74Y84:03:05 Rerouting for completion and closure. 33084-4Rednwbryu encounter TlqvLJ6623-80-23C07:03:24Telephone encounter NoteTXT1.2.840.813700.1.13.104.2.7.2. 233742|3378265915LKSoweoeydj for patient oquc52423-2QnlaKB513118097Jqjhwr D [address]5577555U MDYQIMMGESPFVYFCINCZU9608-22-84E05:03 :241.2.840.002256.1.72.3.15|1.2.840.1 06030.1.13.104.2.7.2.727879_[id number] 0 Ramona Diaz [facility] 2023-01-05 16:21:48 0506-06-13C09:21:48 Form faxed to [employer]. [phone]. 42522-4Bvqvlondv encounter LzbvCV0132-48-37D52:22:04Telephone encounter NoteTXT1.2.840.994927.1.13.104.2.7.2. 126038|9725850859TZGtnbjuubj for patient pioi74084-1UffdGM597484245Iyjnup Danielle MAURER[address]TXTX[address]5577555U UOFRSYXHPWRCNUJOYHDJD6759-61-49E25:22 :041.2.840.921840.1.72.3.15|1.2.840.1 01767.1.13.104.2.7.2.727879_[id number] 7 Mi Santos RN [facility] 2023-01-05 13:29:40 0222-78-04W90:29:40 Spoke with patient, identified patient by Name and . Introduced myself as Dorinda Gonzáles RN, clinical support manager for Dr. Loza. Patient wanted to know why she had labs scheduled for Dr. Loza and no appointment. Patient was informed that original appointment from 01/17 was rescheduled to 03/07 and lab appointment for 01/14 was not rescheduled. Informed patient that I would let the schedulers know to move lab appointment to 03/04/23. 90800-3Rzvjnuvvp encounter GyyvWI8386-98-41L17:34:36Telephone encounter NoteTXT1.2.840.345452.1.13.104.2.7.2. 822516|0172295057MTNzzpyjpxv for patient pjxa09343-4IsmgXU044670680Groij N Jones [address]TXTX[address]5577555U KBMNENDLNBGVUICAFOGXX5209-96-43H25:34 :361.2.840.373516.1.72.3.15|1.2.840.1 61748.1.13.104.2.7.2.727879_[id number] 7 Dorinda Gonzáles RN [facility] 2023-01-05 13:09:03 3651-90-71T21:09:03 Had [place] inpatient. Interested [place] location. Pt aware will call back when opening. 15185-5Agkyobveh encounter JeqmBH3783-46-99S10:09:45Telephone encounter NoteTXT1.2.840.071244.1.13.104.2.7.2. 358936|6854866860HQYookzkrch for patient hnol70319-0SveqKQ139555237Oyzfr Martinez [address]TXTX[address]7555U JKGKGUMDXSUAXINJVYWOU7865-73-60C34:09 :451.2.840.150883.1.72.3.15|1.2.840.1 26319.1.13.104.2.7.2.727879_[id number] 2 Graciela Durand RT [facility] 2023-01-05 12:30:51 8084-93-61Z53:30:51 Franck Crow is a 82 year old female patient received a message the labs were scheduled but no current orders in the chart patient had a couple questions as to why it was scheduled in the message it said Dr Loza [place] 77864-4Zlwhjjylh encounter VxqgGG0732-28-49H74:34:44Telephone encounter NoteTXT1.2.840.761233.1.13.104.2.7.2. 354220|9028871556UINotxvttfl for patient wqxb83697-2VppyEF616825141Cqzayd N [address]TXTX[address]5577555U DEASKHELRASPANQXQHLJP7587-56-79J01:34 :441.2.840.013708.1.72.3.15|1.2.840.1 33684.1.13.104.2.7.2.727879_[id number] 3 Cherelle Lew [facility] 2023-01-04 10:57:55 3159-08-70Y68:57:55 Eugene from [employer] calling asking for the form received on 12/30/22 to be signed no later than today. Callback [phone] signed by Ramona Jorgensen at 01/04/2023 10:59 AM RMP32815-6Oommnjppp encounter AudfFC3177-37-07I48:59:22Telephone encounter NoteTXT1.2.840.197230.1.13.104.2.7.2. 374571|7424518732YMWehpgkiiu for patient smav29528-8ItirOQDURBISFO[address]TXTX7755577555U GMILVTXFWIWWVAABJPVAG0339-45-67P82:59 :221.2.840.531615.1.72.3.15|1.2.840.1 32271.1.13.104.2.7.2.727879_[id number] 9 [facility] 2023-01-04 09:59:40 7867-80-03W68:59:40 Attempted to contact pt, no answer, left vm for pt to call clinic back. 73027-4Dtrieazsa encounter PhvqTL1590-72-49Q56:59:56Telephone encounter NoteTXT1.2.840.195821.1.13.104.2.7.2. 170345|6988764940EYSeweonwnr for patient mstl48439-2TxjrFM312449329Mfxsql M [address] TkqgIugflytykXezvcthxjJATZ7663911435F LNXBPCWXUUVQZBBRPSMLJ0249-07-02X08:59 :561.2.840.668938.1.72.3.15|1.2.840.1 03627.1.13.104.2.7.2.727879_[id number] 8 [facility] 11:00:00 4257-04-00R50:00:00 Oxygen Rx form received from [employer] and emailed to Dr. Taylor (away from clinic). ALEXEY: 12/15/22NOV: none 70475-4Oqsibyapu encounter RrzzTU9446-49-52L60:01:07Telephone encounter NoteTXT1.2.840.839994.1.13.104.2.7.2. 105293|2285068264OPBqyvantqw for patient dtdc99440-1NrpnTZ258390875Xvmyhr Danielle ERASTO[address]TXTX[address]5577555U UBRMONILXTUYGBTHYTOIF8666-08-49Y91:01 :071.2.840.018428.1.72.3.15|1.2.840.1 47646.1.13.104.2.7.2.727879_[id number] 4 Mi Danielle RN [facility] 2022-12-29 13:44:30 5398-16-89F12:44:30 Franck Crow is a 82 year old femalePt is calling to speak with provider regarding an appt, Please advise 76778-0Etgdfvwkr encounter GhlvRA9745-11-62T01:44:52Telephone encounter NoteTXT1.2.840.662835.1.13.104.2.7.2. 779135|2045234226UPQfqqdfvju for patient oair80872-7ZjdoLC166663797Nfdbot N [address]Gal[address]onGalvestonTXTX[address]5577555U NLGOEPQUXGPKDLLPPLUJP2448-23-69P18:44 :521.2.840.280130.1.72.3.15|1.2.840.1 79228.1.13.104.2.7.2.727879_[id number] 9 Jyoti Abraham [facility] 2022-12-17 11:40:47 1539-75-11X44:40:47 Called patient. The four medications sent to [facility] -- albuterol, Pulmicort, Brovana, and Yupelri are collectively going to cost the patient over $500 monthly. This is not feasible for her and she will need more affordable medications prescribed. ALEXEY: 12/15/22Patient states for now she still has enough medications to last over the weekend. 20979-7Hjtdzldwr encounter OufqBK1294-62-62A43:43:26Telephone encounter NoteTXT1.2.840.310996.1.13.104.2.7.2. 235733|4824769882HWUjujzqhbf for patient hmuj09016-5FcsyEG359561472Jmzqhm Huckabee RN[address]GalvestonTXTX7755577555U VSOIWSCDRNEYRMSOAWPHH6197-42-70E22:43 :261.2.840.927373.1.72.3.15|1.2.840.1 24444.1.13.104.2.7.2.727879_[id number] 2 Mi Santos RN [facility] 2022-12-17 10:07:52 1887-96-02L83:07:52 Franck Crow is a 82 year old femalePt calling requesting if she may get a generic version on rx due to 4 rxs given by provider costing a little over $500.Pt mentioned she doesn't know if she would be able to afford that monthly and if there were any alternates pt could take to where it isnt so much.Pt mentioned she cannot recall the names of the 4 rxs but that they would be on file.Please advise 93066-8Xsmrixclq encounter YrrvFZ7729-56-06Z78:11:32Telephone encounter NoteTXT1.2.840.687221.1.13.104.2.7.2. [id number] for patient [id number] N Gonzales[address] StreetVa[id number] BGOTOIMUEKTTLVLEJSWYN7236-32-86F44:11 :321.2.840.300469.1.72.3.15|1.2.840.1 [id number] 5 Lindsey Mckeon [facility] 2022-12-15 16:44:19 7049-98-53V12:44:19 Nebulizer/Medication Order Form and ALEXEY clinical notes faxed to Mel[facility] at [facility]. 80930-2Sjfhckadi encounter GircMO5806-68-11L25:44:58Telephone encounter NoteTXT1.2.840.418977.1.13.104.2.7.2. [id number] for patient [id number] Huckabee RN[address] Rp[id number] GMKITAONHCOQUNBFEYTEN0479-13-68K50:44 :581.2.840.166265.1.72.3.15|1.2.840.1 [id number] 9 Mi Santos RN [facility]
[2023-10-26 10:28] LABS: Absolute Eosinophils 0.3 K/uL (0-0.5); Absolute Lymphocytes (CBC) 0.4 K/uL (0.7-4.9); Absolute Monocytes 0.6 K/uL (0.1-1.3); Absolute Neutrophil 5.3 K/uL (1.8-8.0); Basophils % 0.7 % (0-1.3); Eosinophils % 5.1 % (0-4.4); Hematocrit 36.4 % (36.0-45.0); Hemoglobin 11.7 g/dL (12.0-15.0); MCH 29.2 pg (27.0-35.0); MCHC 32.1 g/dL (32.0-36.0); MCV 90.7 fL (80-100); Monocytes % 8.7 % (3.3-12.3); Neutrophils % 79.5 % (41.7-73.7); Platelets 274 thou/uL (152-406); RBC Red Blood Cell Count 4.01 M/uL (3.86-4.86); Red Cell Distribution Width 17.1 % (12.1-15.2)
[2023-10-26 10:46] LABS: ALT/SGPT < 14 U/L (13-56); AST/SGOT 14 U/L (15-37); Albumin 2.7 g/dL (3.4-5.0); Albumin/Globulin Ratio 0.5 (1.1-1.8); Alkaline Phosphatase 88 U/L (45-117); Anion Gap 7.5 mEq/L (5.0-15.0); BUN Blood Urea Nitrogen 19 mg/dL (7-18); Bicarbonate 33 mEq/L (21-32); Bilirubin Total 0.4 mg/dL (0.2-1.0); Globulin 5.3 g/dL (2.3-3.5); Glomerular Filtration Rate 69 ml/min (=/>90); Glucose Level 110 mg/dL (74-106); Potassium 3.5 mEq/L (3.5-5.1); Sodium Level 133 mEq/L (136-145)
[2023-10-26] MEDS ORDERED: NA CHLORIDE 0.9% 500 ML ONE (11:06)
[2023-10-26] MEDS ORDERED: LEVALBUTEROL 1.25 MG/3 ML NEB ONE (11:06)
--- NOTE | 2023-10-26 11:35 | RAD REPORT ---
EXAM DESCRIPTION: CT - Abdomen Pelvis W Contrast - 10/26/2023 11:03 am CLINICAL HISTORY: Abdominal pain COMPARISON: none. TECHNIQUE: Computed axial tomography of the abdomen pelvis was obtained. 100 cc Isovue-300 was admin istered intravenously. Oral contrast was not requested which limits evaluation of bowel and appendix All CT scans are performed using dose optimization technique as appropriate and may include automated exposure control or mA/KV adjustment according to patient size. FINDINGS: Several sub centimeter left lower lobe nodules. The liver, spleen, pancreas, right kidney and adrenals unremarkable Mild left hydronephrosis and left hydroureter. Left ureter is dilated to the level of the 6.[address] left pelvic mass 6.4 centimeter soft tissue mass left pelvis. Lateral aspect of the mass abuts the left ilium. It cont ains low-density areas which may represent necrosis. Left periaortic lymphadenopathy. Left iliac lymphadenopathy. Bladder wall thickening. No evidence of diverticulitis. Atherosclerosis IMPRESSION: Small left lung nodules may represent metastases 6.4 centimeter soft tissue mass left pelvis may represent a necrotic metastatic lymph node Para aortic and pelvic lymphadenopathy probably neoplastic Bladder wall thickening may be post treatment change or neoplasm.
--- NOTE | 2023-10-26 11:42 | RAD REPORT ---
EXAM DESCRIPTION: [facility] Single View10/26/2023 10:34 am CLINICAL HISTORY: Chest pain COMPARISON: none FINDINGS: Lungs are moderately to markedly hyperaerated. Several small lung nodules. Heart is normal size IMPRESSION: Moderate to marked COPD Several small lung nodules may represent metastatic disease
[2023-10-26 14:25] LABS: Urine Bacteria 20-50 /HPF (<20); Urine Bilirubin NEGATIVE (Negative); Urine Blood 3+ (OVER) (Negative); Urine Clarity Extremely Turbid (Clear); Urine Color Yellow (Yellow); Urine Culture Reflex Order REFLEXED; Urine Glucose NEGATIVE (Negative); Urine Ketones 1+ (Negative); Urine Microscopic Reflex YN ORDER UMIC; Urine Mucus 2+ /HPF (None Seen); Urine Nitrite NEGATIVE (Negative); Urine Protein 2+ (Negative); Urine RBC >50 /HPF (None Seen); Urine Urobilinogen Normal (Normal); Urine WBC >50 /HPF (<5)
[2023-10-26 14:26] LABS: Specific Gravity > 1.030 (1.005-1.030)
--- NOTE | 2023-10-26 15:00 | EDPHYS ---
Physician Documentation [facility] Name: Liz Crow Age: 83 yrs Sex: Female : 1940 Arrival Date: 10/26/2023 Time: 09:46 Bed 15 Private MD: ED Physician Naresh Solis HPI: 10/25 10:12 This 83 yrs old Female presents to ER via EMS with complaints of dysuria. rn 10:12 The patient presents with urinary symptoms, dysuria, frequency. Onset: The rn symptoms/episode began/occurred 2 week(s) ago. Modifying factors: The symptoms are alleviated by nothing, the symptoms are aggravated by urinating. Severity of symptoms: At their worst the symptoms were mild, in the emergency department the symptoms are unchanged. The patient has experienced similar episodes in the past. The patient has not recently seen a physician. Patient reports history of metastatic bladder cancer, is not undergoing treatment, reports 2 weeks of dysuria and increased frequency. No hematuria. No fever or chills. Also has COPD. Denies any change in her breathing at this time. Reports feels a little anxious. Mild right lower quadrant abdominal pain and suprapubic pain as well.. Historical: - Allergies: 10:57 Pt states she is allergic to something but doesnt know what it is; nj1 - PMHx: 10:57 Chronic obstructive lung disease; Bladder Cancer; nj1 - Immunization history:: Adult Immunizations unknown. - Infectious Disease History:: Denies. - Social history:: Smoking status: Patient/guardian denies using tobacco. - Family history:: not pertinent. - Hospitalizations: : No recent hospitalization is reported. ROS: 10:12 Positive for urinary frequency, burning with urination, rn 10:12 Constitutional: Negative for fever, chills, and weight loss, Cardiovascular: Negative for chest pain, palpitations, and edema, Respiratory: Negative for shortness of breath, cough, wheezing, and pleuritic chest pain, Abdomen/GI: Positive for right lower abdominal pain Back: Negative for injury and pain, MS/Extremity: Negative for injury and deformity, Skin: Negative for injury, rash, and discoloration, Neuro: Positive for generalized weakness Exam: 10:12 Constitutional: Thin female, tachypneic Head/Face: Normocephalic, atraumatic. ENT: rn Dry mucous membranes, no stridor Cardiovascular: Tachycardic, regular. Respiratory: Tachypneic, no retractions Abdomen/GI: Soft, right lower quadrant tenderness without guarding or rebound. MS/ Extremity: Pulses equal, no cyanosis. Neuro: Awake and alert, GCS 15 15:05 ECG was reviewed by the Attending Physician. rn Vital Signs: 09:53 BP 137 / 95; Pulse 120; Resp 26; Temp 97.6; Pulse Ox 96% on NC; db 10:21 BP 116 / 84; Pulse 121; Resp 34; Pulse Ox 98% on 3 lpm NC; nj1 11:46 BP 129 / 70; Pulse 109; Resp 18; Pulse Ox 99% on 3 lpm NC; kj2 12:28 BP 135 / 77; Pulse 103; Resp 21; Pulse Ox 100% on 3 lpm NC; nj1 13:56 BP 118 / 63; Pulse 109; Resp 19; Pulse Ox 98% on 3 lpm NC; nj1 15:27 BP 126 / 79; Pulse 107; Resp 22; Pulse Ox 100% on 3 lpm NC; nj1 16:25 BP 129 / 68; Pulse 102; Resp 19; Temp 98.6; Pulse Ox 99% on 3 lpm NC; nj1 MDM: 09:52 Patient medically screened. rn 14:58 Differential diagnosis: Neoplasm urinary tract infection. Data reviewed: vital signs, rn nurses notes, lab test result(s), radiologic studies, CT scan, and as a result, I will admit patient. Consideration of Admission/Observation Patient was admitted/placed on observation. Escalation of care including admission/observation considered. Care significantly affected by the following chronic conditions: Chronic Obstructive Pulmonary Disease, Bladder cancer. Counseling: I had a detailed discussion with the patient and/or guardian regarding the historical points, exam findings, and any diagnostic results supporting the discharge/admit diagnosis, lab results, radiology results, the need for further work-up and treatment in the hospital. Response to treatment: There is no appreciated change of the patient's symptoms at this time, and as a result, I will admit patient. 10/25 09:58 Order name: Blood Culture Adult (2) rn 10/25 09:58 Order name: CBC with Diff rn 10/25 09:58 Order name: CMP; Complete Time: 11:00 rn 10/25 09:58 Order name: Lactate w/ 2H reflex if indic.; Complete Time: 11:00 10/25 09:58 Order name: Protime (+inr) 10/25 09:58 Order name: Ptt, Activated 10/25 09:58 Order name: Urinalysis w/ reflexes; Complete Time: 14:55 10/25 14:28 Order name: Urine Culture [facility] 10/25 15:41 Order name: CBC with Automated Diff [facility] 10/25 15:41 Order name: CBC with Automated Diff [facility] 10/25 15:41 Order name: Comprehensive Metabolic Panel [facility] 10/25 15:41 Order name: Comprehensive Metabolic Panel [facility] 10/25 09:58 Order name: Chest Single View XRAY; Complete Time: 11:50 10/25 09:58 Order name: CT Abd/Pelvis - IV Contrast Only; Complete Time: 11:50 10/25 15:41 Order name: Case Management Consult [facility] 10/25 09:58 Order name: Accucheck; Complete Time: 11:59 10/25 09:58 Order name: Cardiac monitoring; Complete Time: 10:22 10/25 09:58 Order name: EKG - Nurse/Tech; Complete Time: 11:04 10/25 09:58 Order name: IV Saline Lock - Large Bore; Complete Time: 10:22 10/25 09:58 Order name: Labs collected and sent; Complete Time: 10:22 10/25 09:58 Order name: O2 Per Protocol; Complete Time: 10:22 10/25 09:58 Order name: O2 Sat Monitoring; Complete Time: 10:22 10/25 09:58 Order name: Vital Signs; Complete Time: 10:22 rn EC:05 Rate is 120 beats/min. Rhythm is regular. QRS [place] is Normal. MI interval is normal. rn QRS interval is normal. QT interval is normal. No Q waves. T waves are Normal. No ST changes noted. Clinical impression: Sinus tachycardia. Interpreted by me. Reviewed by me. Administered Medications: 11:19 Drug: Levalbuterol Inhalation 1.25 mg Inhalation once Route: Inhalation; nj1 12:00 Follow up: Response: No adverse reaction nj1 11:30 Drug: NS 0.9% IV 500 ml IV at bolus once Route: IV; Rate: bolus; Site: right kj2 antecubital; 12:30 Follow up: Response: No adverse reaction; IV Status: Completed infusion; IV Intake: nj1 500ml 15:27 Drug: Rocephin IV 1 grams IV at calculated rate once; Given slow IV push per pharmacy nj1 instructions Route: IV; Rate: calculated rate; Site: right antecubital; 16:24 Drug: Fluconazole PO 150 mg PO once Route: PO; nj1 Disposition Summary: 10/26/23 14:59 Hospitalization Ordered Notes: Hospitalization Status: Observation rn Provider: Gen Armijo rn Location: Telemetry/MedSurg (observation) rn Condition: Stable rn Problem: new rn Symptoms: are unchanged rn Bed/Room Type: Standard rn Room Assignment: 231(10/26/23 16:09) bd Diagnosis - UTI/ Urinary tract infection, site not specified rn - Weakness rn Forms: - Medication Reconciliation Form rn - SBAR form rn - Leadership Thank You Letter rn Signatures: Dispatcher [employer] EDNC Enedina Wong Roman, MD MD rn Benton, Danielle, RN RN db Jaco, Norma, RN RN nj1 Aure Juarez RN RN kj2 Corrections: (The following items were deleted from the chart) 09:59 09:59 Abdomen Pelvis W Con+CT.RAD.BRZ ordered. EDNC EDNC 16:09 14:59 rn juan
--- NOTE | 2023-10-26 15:00 | ER ---
Nurse's Notes [facility] Name: Liz Crow Age: 83 yrs Sex: Female : 1940 Arrival Date: 10/26/2023 Time: 09:46 Bed 15 Private MD: Diagnosis: UTI/ Urinary tract infection, site not specified;Weakness Presentation: 10/25 09:56 Chief complaint: Patient states: PAINFUL URINATION AND BURNING X 2 WEEKS. HX OF BLADDER db CANCER. Coronavirus screen: Client denies travel out of the [place] in the last 14 days. At this time, the client does not indicate any symptoms associated with coronavirus-19. Ebola Screen: Patient negative for fever greater than or equal to 101.5 degrees Fahrenheit, and additional compatible Ebola Virus Disease symptoms Patient denies exposure to infectious person. Patient denies travel to an Ebola-affected area in the 21 days before illness onset. No symptoms or risks identified at this time. Initial Sepsis Screen: Does the patient meet any 2 criteria? No. Patient's initial sepsis screen is negative. Does the patient have a suspected source of infection? No. Patient's initial sepsis screen is negative. Risk Assessment: Do you want to hurt yourself or someone else? Patient reports no desire to harm self or others. Onset of symptoms was October 26, 2023. 09:56 Method Of Arrival: EMS: [facility] db 09:56 Acuity: KEDAR 2 db Historical: - Allergies: 10:57 Pt states she is allergic to something but doesnt know what it is; nj1 - PMHx: 10:57 Chronic obstructive lung disease; Bladder Cancer; nj1 - Immunization history:: Adult Immunizations unknown. - Infectious Disease History:: Denies. - Social history:: Smoking status: Patient/guardian denies using tobacco. - Family history:: not pertinent. - Hospitalizations: : No recent hospitalization is reported. Screenin:00 [facility] ED Fall Risk Assessment (Adult) History of falling in the last 3 months, nj1 including since admission No falls in past 3 months (0 pts). 11:00 [facility] ED Fall Risk Assessment (Adult) Confusion or Disorientation No (0 pts) nj1 Intoxicated or Sedated No (0 pts) Impaired Gait No (0 pts) Mobility Assist Device Used No (0 pt) Altered Elimination Yes (1 pt) Score/Fall Risk Level 0 - 2 = Low Risk Oriented to surroundings, Maintained a safe environment, Hourly rounding (assess needs \T\ fall precautionary measures) done. Abuse screen: Denies threats or abuse. Denies injuries from another. Nutritional screening: No deficits noted. Tuberculosis screening: No symptoms or risk factors identified. Assessment: 10:59 General: Appears uncomfortable, Behavior is calm, cooperative, appropriate for age. nj1 Pain: Denies pain. Neuro: Level of Consciousness is awake, alert, obeys commands, Oriented to person, place, situation. Cardiovascular: Patient's skin is warm and dry. Respiratory: Airway is patent Respiratory effort is even, slightly labored Respiratory pattern is tachypnea wears oxygen 22/11. : Reports burning with urination. 11:48 Reassessment: Patient appears in no apparent distress at this time. Patient and/or kj2 family updated on plan of care and expected duration. Pain level reassessed. Patient is alert, oriented x 3, equal unlabored respirations, skin warm/dry/pink. Patient states symptoms have improved. 12:29 Reassessment: Patient appears in no apparent distress at this time. Patient and/or nj1 family updated on plan of care and expected duration. Pain level reassessed. Patient is alert, oriented x 3, equal unlabored respirations, skin warm/dry/pink. 14:00 Reassessment: Patient appears in no apparent distress at this time. Patient and/or nj1 family updated on plan of care and expected duration. Pain level reassessed. Patient is alert, oriented x 3, equal unlabored respirations, skin warm/dry/pink. 15:28 Reassessment: Patient appears in no apparent distress at this time. Patient and/or nj1 family updated on plan of care and expected duration. Pain level reassessed. Patient is alert, oriented x 3, equal unlabored respirations, skin warm/dry/pink. 16:25 Reassessment: Patient appears in no apparent distress at this time. Patient and/or nj1 family updated on plan of care and expected duration. Pain level reassessed. Patient is alert, oriented x 3, equal unlabored respirations, skin warm/dry/pink. Vital Signs: 09:53 BP 137 / 95; Pulse 120; Resp 26; Temp 97.6; Pulse Ox 96% on NC; db 10:21 BP 116 / 84; Pulse 121; Resp 34; Pulse Ox 98% on 3 lpm NC; nj1 11:46 BP 129 / 70; Pulse 109; Resp 18; Pulse Ox 99% on 3 lpm NC; kj2 12:28 BP 135 / 77; Pulse 103; Resp 21; Pulse Ox 100% on 3 lpm NC; nj1 13:56 BP 118 / 63; Pulse 109; Resp 19; Pulse Ox 98% on 3 lpm NC; nj1 15:27 BP 126 / 79; Pulse 107; Resp 22; Pulse Ox 100% on 3 lpm NC; nj1 16:25 BP 129 / 68; Pulse 102; Resp 19; Temp 98.6; Pulse Ox 99% on 3 lpm NC; nj1 ED Course: 09:51 Patient arrived in ED. rn 09:51 Naresh Solis MD is Attending Physician. rn 09:56 Lindsey Moore, RN is Primary Nurse. db 09:57 Triage completed. db 09:58 Arm band placed on Patient placed in an exam room. db 10:18 Initial lab(s) drawn, by me, sent to lab. First set of blood cultures drawn. Inserted db saline lock: 20 gauge in right forearm, using aseptic technique. Blood collected. 10:25 Patient has correct armband on for positive identification. Bed in low position. Call db light in reach. Side rails up X 1. Client placed on continuous cardiac and pulse oximetry monitoring. NIBP monitoring applied. quality assurance monitor body on. Pulse ox on. NIBP on. Warm blanket given. Pillow given. 10:25 Report given to ERASTO ALCARAZ. db 10:28 Inserted saline lock: 20 gauge in left forearm, using aseptic technique. Blood db collected. 10:28 Second set of blood cultures drawn. db 10:35 Chest Single View XRAY In Process Unspecified. EDMS 10:42 Viviana Lopez, RN is Primary Nurse. nj1 11:00 Provided Education on: call light, fall precautions. nj1 11:05 CT Abd/Pelvis - IV Contrast Only In Process Unspecified. EDMS 14:00 Assisted with bedpan. nj1 14:57 Cleaned of incontinence. nj1 14:58 Gen Armijo is Hospitalizing Provider. rn 16:20 Notified ED physician of other order dosage clarification. Ok to give 200mg diflucan po nj1 per Dr Solis. Administered Medications: 11:19 Drug: Levalbuterol Inhalation 1.25 mg Inhalation once Route: Inhalation; nj1 12:00 Follow up: Response: No adverse reaction nj1 11:30 Drug: NS 0.9% IV 500 ml IV at bolus once Route: IV; Rate: bolus; Site: right kj2 antecubital; 12:30 Follow up: Response: No adverse reaction; IV Status: Completed infusion; IV Intake: nj1 500ml 15:27 Drug: Rocephin IV 1 grams IV at calculated rate once; Given slow IV push per pharmacy nj1 instructions Route: IV; Rate: calculated rate; Site: right antecubital; 16:24 Drug: Fluconazole PO 150 mg PO once Route: PO; nj1 Intake: 12:30 IV: 500ml; Total: 500ml. nj1 Outcome: 14:59 Decision to Hospitalize by Provider. rn 17:14 Patient left the ED. nj1 Signatures: Dispatcher [employer] EDMS Naresh Solis MD MD rn Benton, Danielle RN Viviana Padilla, RN ERASTO nj1 Aure Juarez RN RN kj2 Corrections: (The following items were deleted from the chart) 11:21 10:21 BP 116 / 84; Pulse 121bpm; Resp 34bpm; Pulse Ox 98%; nj1 nj1 13:11 13:11 [facility] ED Fall Risk Assessment (Adult) Confusion or Disorientation nj nj1
[2023-10-26] MEDS ORDERED: CEFTRIAXONE 1000 MG/VIAL ONE (15:20)
[2023-10-26] MEDS ORDERED: NA CHLORIDE 0.9% 50 ML ONE (15:21)
[2023-10-26] MEDS ORDERED: MORPHINE 2 MG/ML SYR IV PRN (15:36)
[2023-10-26] MEDS ORDERED: ACETAMINOPHEN 500 MG TAB PO PRN (15:36)
[2023-10-26] MEDS ORDERED: ONDANSETRON 4 MG/2 ML VIAL IV PRN (15:36)
--- NOTE | 2023-10-26 15:46 | P.HP ---
Certification for Inpatient Patient admitted to: Inpatient With expected LOS: >2 Midnights Patient will require the following post-hospital care: Hospice Practitioner: I am a practitioner with admitting privileges, knowledge of patient current condition, hospital course, and medical plan of care. Services: Services provided to patient in accordance with Admission requirements found in Title 42 Section 412.3 of the Code of Federal Regulations Patient History Date of Service: 10/26/23 Reason for admission: UTI/toxic encephalopathy/generalized weakness/metastatic bladder cancer History of Present Illness: Patient is an 83-year-old female who was admitted to the hospital with generalized weakness and an inability to get out of bed and ambulate anymore. She has gotten weak over the last week and she is developed a urinary tract infection. She is been febrile and she has not been doing much of anything according to the . He is having to do everything for her. She is emaciated and cachectic. She is down to 90 pounds. She has been diagnosed with metastatic bladder cancer. She did try to go through chemotherapy; however, this was unsuccessful and patient's cancer metastasized. At this time, her cancer has spread pretty much throughout her body according to the family. They are hoping to try to get her symptoms improve and her pain and her weakness improved. They are considering palliative care. They also do not want her resuscitated. At this time patient will be admitted to the hospital for inpatient hospitalization. - Past Medical/Surgical History -: Metastatic bladder cancer -: Cystoscopy with biopsy of the bladder - Family History Father Family History: Reviewed- Non-Contributory - Social History Smoking Status: Former smoker Alcohol use: No CD- Drugs: No Review of Systems 10-point ROS is otherwise unremarkable Physical Examination - Vital Signs Temperature: 100.8 F Blood Pressure: 110/70 Pulse: 110 Respirations: 24 Pulse Ox (%): 92 - Physical Exam General: Alert, In no apparent distress, Oriented x3, Cachectic, Mild distress, Other (Emaciated) HEENT: Atraumatic, PERRLA, Mucous membr. moist/pink, EOMI, Sclerae nonicteric Neck: Supple, 2+ carotid pulse no bruit, No LAD, Without JVD or thyroid abnormality Respiratory: Clear to auscultation bilaterally, Normal air movement Cardiovascular: Regular rate/rhythm, Normal S1 S2 Gastrointestinal: Normal bowel sounds, Soft and benign, Non-distended, Tenderness (Suprapubic tenderness) Musculoskeletal: No clubbing, No swelling, No tenderness Integumentary: No rashes Neurological: Normal speech, Normal tone, Sensation intact, Cranial nerves 3-12 intact, Abnormal gait, Abnormal strength Lymphatics: No axilla or inguinal lymphadenopathy - Studies Laboratory Data (last 24 hrs) 10/26/23 10/26/23 10:16 10:16 WBC 6.70 Hgb 11.7 L Hct 36.4 Plt Count 274 Sodium 133 L Potassium 3.5 BUN 19 H Creatinine 0.85 Glucose 110 H Total Bilirubin 0.4 AST 14 L ALT < 14 Alkaline Phosphatase 88 Assessment & Plan - Problems (Diagnosis) (1) UTI (urinary tract infection) Current Visit: Yes Status: Acute (2) Generalized weakness Current Visit: Yes Status: Acute (3) Bladder malignancy Current Visit: Yes Status: Acute (4) Cancer cachexia Current Visit: Yes Status: Acute (5) DNAR (do not attempt resuscitation) Current Visit: Yes Status: Acute (6) Palliative care status Current Visit: Yes Status: Acute - Plan Plan: 1. Patient with UTI with generalized weakness; will continue with IV fluids and IV antibiotics 2. Bladder cancer with metastasis; family wanting to proceed with palliative care. Patient is a do not attempt resuscitation 3. Generalized weakness secondary to cancer cachexia; will arrange for placement where we can continue doing hospice care. Family lives at [facility] and they have 17 steps to get upstairs. They do not feel that she will be able to do that at home so they would prefer for her to go to a facility. 4. DNAR 5. Palliative care 6. GI and DVT prophylaxis Discharge Plan: Other (hospice) Plan to discharge in: 72 Hours - Advance Directives Does patient have a Living Will: No Does patient have a Durable POA for Healthcare: No - Code Status/Comfort Care Code Status: Do Not Attempt Resuscitat Comfort Measures: Hospice Care Critical Care: No Time Spent Managing PTS Care (In Minutes): 45
[2023-10-26] MEDS ORDERED: FLUCONAZOLE 100 MG TAB ONE (16:18)
[2023-10-26 17:36] VITALS: O2SAT 99
[2023-10-26 18:22] VITALS: BMI 15.2
[2023-10-26 19:17] LABS: PT Prothrombin Time 12.5 SECONDS (9.4-12.5); PTT, Activated Partial Thromb 30.9 SECONDS (24.3-36.9); Protime INR 1.14
[2023-10-26] MEDS: NA CHLORIDE 0.9% 1,000 ML IV SCH (20:01)
[2023-10-27] MEDS ORDERED: ALBUTEROL INHALER 200 PUFF/6.7 GM IH ONE (02:12)
[2023-10-27 03:45] LABS: Absolute Basophils 0.1 K/uL (0-0.5); Absolute Eosinophils 0.4 K/uL (0-0.5); Absolute Lymphocytes (CBC) 0.5 K/uL (0.7-4.9); Basophils % 0.9 % (0-1.3); Eosinophils % 5.4 % (0-4.4); Hematocrit 29.1 % (36.0-45.0); Hemoglobin 9.5 g/dL (12.0-15.0); Lymphocytes % 6.1 % (15.3-44.8); MCH 29.3 pg (27.0-35.0); MCHC 32.8 g/dL (32.0-36.0); MCV 89.6 fL (80-100); MPV 6.9 fL (7.6-11.3); Monocytes % 12.2 % (3.3-12.3); Neutrophils % 75.4 % (41.7-73.7); Platelets 231 thou/uL (152-406); RBC Red Blood Cell Count 3.25 M/uL (3.86-4.86); Red Cell Distribution Width 16.7 % (12.1-15.2)
[2023-10-27 03:51] LABS: AST/SGOT 14 U/L (15-37); Albumin 2.1 g/dL (3.4-5.0); Albumin/Globulin Ratio 0.5 (1.1-1.8); Alkaline Phosphatase 66 U/L (45-117); Anion Gap 10.5 mEq/L (5.0-15.0); BUN Blood Urea Nitrogen 16 mg/dL (7-18); Bicarbonate 29 mEq/L (21-32); Bilirubin Total 0.4 mg/dL (0.2-1.0); Globulin 4.1 g/dL (2.3-3.5); Glomerular Filtration Rate 92 ml/min (=/>90); Glucose Level 76 mg/dL (74-106); Potassium 3.5 mEq/L (3.5-5.1); Protein, Total 6.2 g/dL (6.4-8.2); Sodium Level 136 mEq/L (136-145)
[2023-10-27 04:05] LABS: ALT/SGPT < 14 U/L (13-56)
[2023-10-27] MEDS: ALBUTEROL INHALER 200 PUFF/6.7 GM IH PRN (05:25)
--- NOTE | 2023-10-27 06:59 | P.PN ---
Date of Service: 10/27/23 Subjective pending hospice discharge planning, reports generalized weakness Review of Systems 10-point ROS is otherwise unremarkable Physical Examination - Vital Signs Reviewed - Physical Exam General: Alert, Cachectic, Other (Emaciated) HEENT: Atraumatic, PERRLA, Mucous membr. moist/pink, Neck: Supple, 2+ carotid pulse no bruit, No LAD, Respiratory: Clear to auscultation bilaterally, Normal air movement Cardiovascular: Regular rate/rhythm, Normal S1 S2 Gastrointestinal: Normal bowel sounds, Soft and benign, Tenderness (Suprapubic tenderness) Musculoskeletal: No clubbing, No swelling, generalized weakness Integumentary: No rashes Neurological: Normal speech, Normal tone, Sensation intact, Cranial nerves 3-12 intact, Abnormal gait, Abnormal strength Lymphatics: No axilla or inguinal lymphadenopathy Assessment & Plan - Problems (Diagnosis) (1) UTI (urinary tract infection) Current Visit: Yes Status: Acute (2) Generalized weakness Current Visit: Yes Status: Acute (3) Bladder malignancy Current Visit: Yes Status: Acute (4) Cancer cachexia Current Visit: Yes Status: Acute (5) DNAR (do not attempt resuscitation) Current Visit: Yes Status: Acute (6) Palliative care status Current Visit: Yes Status: Acute - Plan Plan: 1. Patient with UTI with generalized weakness; will continue with IV fluids and IV antibiotics 2. Bladder cancer with metastasis; family wanting to proceed with palliative care. Patient is a do not attempt resuscitation 3. Generalized weakness secondary to cancer cachexia; will arrange for placement where we can continue doing hospice care. Family lives at [facility] and they have 17 steps to get upstairs. They do not feel that she will be able to do that at home so they would prefer for her to go to a facility. 4. DNAR 5. Palliative care 6. GI and DVT prophylaxis Discharge Plan: Other (hospice) Plan to discharge in: 72 Hours - Advance Directives Does patient have a Living Will: No Does patient have a Durable POA for Healthcare: No - Code Status/Comfort Care Code Status: Do Not Attempt Resuscitat Comfort Measures: Hospice Care Critical Care: No Time Spent Managing PTS Care (In Minutes): 35
[2023-10-27] MEDS ORDERED: ALBUTEROL 2.5 MG/3 ML NEB SOL NEB PRN (07:19)
--- NOTE | 2023-10-27 08:59 | P.DS ---
Admission Date: 10/26/23 Discharge Date: 10/28/23 Disposition: HOSPICE-HOME Discharge Condition: FAIR Reason for Admission: UTI/toxic encephalopathy/generalized weakness/metastatic bladder cancer Brief History of Present Illness: Patient is an 83-year-old female who was admitted to the hospital with generalized weakness and an inability to get out of bed and ambulate anymore. She has gotten weak over the last week and she is developed a urinary tract infection. She is been febrile and she has not been doing much of anything according to the . He is having to do everything for her. She is emaciated and cachectic. She is down to 90 pounds. She has been diagnosed with metastatic bladder cancer. She did try to go through chemotherapy; however, this was unsuccessful and patient's cancer metastasized. At this time, her cancer has spread pretty much throughout her body according to the family. They are hoping to try to get her symptoms improve and her pain and her weakness improved. They are considering palliative care. They also do not want her resuscitated. At this time patient will be admitted to the hospital for inpatient hospitalization. - Physical Exam General: Alert, In no apparent distress, Oriented x3, Cachectic, Mild distress, Other (Emaciated) HEENT: Atraumatic, PERRLA, Mucous membr. moist/pink, EOMI, Sclerae nonicteric Neck: Supple, 2+ carotid pulse no bruit, No LAD, Without JVD or thyroid abnormality Respiratory: Clear to auscultation bilaterally, Normal air movement Cardiovascular: Regular rate/rhythm, Normal S1 S2 Gastrointestinal: Normal bowel sounds, Soft and benign, Non-distended, Tenderness (Suprapubic tenderness) Musculoskeletal: No clubbing, No swelling, No tenderness Integumentary: No rashes Neurological: Normal speech, Normal tone, Sensation intact, Cranial nerves 3-12 intact, Abnormal gait, Abnormal strength Hospital Course: 83 year-old patient presented with weakness. Was noted to have bladder cancer, plan to discharge home with hospice Patient tolerating diet, stable for discharge with hospice on po antibiotics. PROBLEM: UTI treated with IV antibiotics will transition to Po antibiotics by mouth Cipro 500 daily x 7 days sent to pharmacy Generalized weakness Bladder malignancy plan to discharge home with hospice Cancer cachexia ckd follow-up with nephrology after discharge Continue home medicines as previously prescribed GOAL: Clear understanding of disease process INSTRUCTIONS: Physician Discharge Instructions: -Follow-up with PCP in 1 to 2 weeks -Please call Dr. Sandy at [phone] if any questions regarding hospital stay -Please call nursing station at [phone] if any nursing or medication questions -Return to the emergency room if symptoms worsen Diet: ADA, low sodium Activity: Fall precautions Vital Signs/Physical Exam: Temp Pulse Resp BP Pulse Ox 97.6 F 103 H 20 139/69 98 10/27/23 08:00 10/27/23 08:00 10/27/23 08:00 10/27/23 08:00 10/27/23 08:00 Laboratory Data at Discharge: WBC 8.00 thou/uL (4.3-10.9) 10/27/23 03:03 Hgb 9.5 g/dL (12.0-15.0) L D 10/27/23 03:03 Hct 29.1 % (36.0-45.0) L 10/27/23 03:03 Plt Count 231 thou/uL (152-406) 10/27/23 03:03 PT 12.5 SECONDS (9.4-12.5) 10/26/23 18:58 INR 1.14 10/26/23 18:58 APTT 30.9 SECONDS (24.3-36.9) 10/26/23 18:58 Sodium 136 mEq/L (136-145) 10/27/23 03:03 Potassium 3.5 mEq/L (3.5-5.1) 10/27/23 03:03 BUN 16 mg/dL (7-18) 10/27/23 03:03 Creatinine 0.56 mg/dL (0.55-1.02) 10/27/23 03:03 Glucose 76 mg/dL (74-106) 10/27/23 03:03 Total Bilirubin 0.4 mg/dL (0.2-1.0) 10/27/23 03:03 AST 14 U/L (15-37) L 10/27/23 03:03 ALT < 14 U/L (13-56) 10/27/23 03:03 Alkaline Phosphatase 66 U/L (45-117) D 10/27/23 03:03 Home Medications: Ciprofloxacin HCl 500 mg PO DAILY #7 tab 10/27/23 Hydrocodone 10/APAP 325 [[place] 10/325] 1 tab PO Q6H PRN #30 tab 10/28/23 LORazepam [Ativan] 0.5 mg PO TID PRN #30 tab 10/28/23 New Medications: LORazepam [Ativan] 0.5 mg PO TID PRN #30 tab PRN Reason: Anxiety Ciprofloxacin HCl 500 mg PO DAILY #7 tab Hydrocodone 10/APAP 325 [[place] 10/325] 1 tab PO Q6H PRN #30 tab PRN Reason: Pain Physician Discharge Instructions: 83 year-old patient presented with weakness. Was noted to have bladder cancer, plan to discharge home with hospice Patient tolerating diet, stable for discharge. PROBLEM: UTI treated with IV antibiotics cipro daily for 7 days due to CKD Generalized weakness Bladder malignancy-plan to DC home w hospice Cancer cachexia ckd Continue home medicines as previously prescribed GOAL: Clear understanding of disease process INSTRUCTIONS: Physician Discharge Instructions: -Follow-up with PCP in 1 to 2 weeks -Please call Dr. Sandy at [phone] if any questions regarding hospital stay -Please call nursing station at [phone] if any nursing or medication questions -Return to the emergency room if symptoms worsen Hospice arranged with: [facility] - Rep Jojo Steffen P: [phone] F: [phone] Modeling Agency Manager: Dr. Danielle Campbell Diet: Regular Activity: Fall precautions Followup: NONE,NONE [Primary Care Provider] - Physician Review: Patient Assessed, Agree with Above Assessment and Plan Time spent managing pt's care (in minutes): 55
--- NOTE | 2023-10-27 09:08 | P.DS ---
Admission Date: 10/26/23 Discharge Date: 10/27/23 Disposition: HOSPICE-HOME Reason for Admission: UTI/toxic encephalopathy/generalized weakness/metastatic bladder cancer Vital Signs/Physical Exam: Temp Pulse Resp BP Pulse Ox 97.8 F 97 H 16 112/62 98 10/27/23 04:00 10/27/23 04:00 10/27/23 04:00 10/27/23 04:00 10/27/23 04:00 Laboratory Data at Discharge: WBC 8.00 thou/uL (4.3-10.9) 10/27/23 03:03 Hgb 9.5 g/dL (12.0-15.0) L D 10/27/23 03:03 Hct 29.1 % (36.0-45.0) L 10/27/23 03:03 Plt Count 231 thou/uL (152-406) 10/27/23 03:03 PT 12.5 SECONDS (9.4-12.5) 10/26/23 18:58 INR 1.14 10/26/23 18:58 APTT 30.9 SECONDS (24.3-36.9) 10/26/23 18:58 Sodium 136 mEq/L (136-145) 10/27/23 03:03 Potassium 3.5 mEq/L (3.5-5.1) 10/27/23 03:03 BUN 16 mg/dL (7-18) 10/27/23 03:03 Creatinine 0.56 mg/dL (0.55-1.02) 10/27/23 03:03 Glucose 76 mg/dL (74-106) 10/27/23 03:03 Total Bilirubin 0.4 mg/dL (0.2-1.0) 10/27/23 03:03 AST 14 U/L (15-37) L 10/27/23 03:03 ALT < 14 U/L (13-56) 10/27/23 03:03 Alkaline Phosphatase 66 U/L (45-117) D 10/27/23 03:03 Followup: NONE,NONE [Primary Care Provider] -
[2023-10-27] MEDS: CEFTRIAXONE 1,000 MG in NA CHLORIDE 0.9% 50 ML IVPB SCH (09:21)
[2023-10-27] MEDS: LORazepam 2 MG/ML VIAL IV PRN (12:01)
--- NOTE | 2023-10-27 14:11 | EKG ---
Test Date: 2023-10-26 Test Time: 10:44:33 Licensed Loan Officer Assistant: AER MEASUREMENT RESULTS: Intervals: Rate: 121 MD: 184 QRSD: 88 QT: 314 QTc: 445 [place]: P: 80 MD: 184 QRS: 36 T: 84 INTERPRETIVE STATEMENTS: Sinus tachycardia with fusion complexes Low voltage QRS Septal infarct, age undetermined Abnormal ECG No previous ECG available for comparison Electronically Signed On 10-27-23 14:07:26 CDT by Domenic Cevallos
--- NOTE | 2023-10-27 14:11 | EKG ---
Test Date: 2023-10-26 Test Time: 10:45:12 Waxing Machine Operator Helper: FRANCINE MEASUREMENT RESULTS: Intervals: Rate: 120 AL: 184 QRSD: 92 QT: 318 QTc: 449 [place]: P: 75 AL: 184 QRS: 17 T: 83 INTERPRETIVE STATEMENTS: Sinus tachycardia Low voltage QRS Septal infarct, age undetermined Abnormal ECG Compared to ECG 10/26/2023 10:44:33 Fusion complex(es) no longer present Myocardial infarct finding still present Electronically Signed On 10-27-23 14:07:25 CDT by Domenic Cevallos
[2023-10-27] MEDS: MORPHINE 4 MG/ML SYR IV PRN (20:50)
[2023-10-27] MEDS: CEFDINIR 300 MG CAP PO SCH (20:50)
[2023-10-28 04:34] LABS: Absolute Basophils 0.1 K/uL (0-0.5); Absolute Eosinophils 0.4 K/uL (0-0.5); Absolute Lymphocytes (CBC) 0.5 K/uL (0.7-4.9); Absolute Neutrophil 4.1 K/uL (1.8-8.0); Basophils % 0.9 % (0-1.3); Eosinophils % 5.9 % (0-4.4); Hematocrit 29.3 % (36.0-45.0); Hemoglobin 9.6 g/dL (12.0-15.0); Lymphocytes % 8.6 % (15.3-44.8); MCH 29.7 pg (27.0-35.0); MCHC 32.8 g/dL (32.0-36.0); MCV 90.5 fL (80-100); MPV 7.1 fL (7.6-11.3); Monocytes % 16.2 % (3.3-12.3); Neutrophils % 68.4 % (41.7-73.7); Nucleated Red Blood Cells % 0.1 % (0-0); Platelets 205 thou/uL (152-406); RBC Red Blood Cell Count 3.23 M/uL (3.86-4.86); Red Cell Distribution Width 16.6 % (12.1-15.2)
[2023-10-28 04:38] LABS: Anion Gap 7.6 mEq/L (5.0-15.0); Magnesium 1.7 mg/dL (1.6-2.4); Potassium 3.6 mEq/L (3.5-5.1)
[2023-10-28 13:32] VITALS: BP 140/76; TEMP 98.5
== END 2023-10-28 14:27 | disposition hospice, home (50) | DRG 689 ==
LOC: ER 09:46 → ERHOLD 15:36 → 2ND 16:52
PROVIDERS: ADMIT Hospitalist; ATTEND Hospitalist
DX: N39.0 Urinary tract infection, site not specified (principal); G92.9 Unspecified toxic encephalopathy; C79.11 Secondary malignant neoplasm of bladder; Z68.1 Body mass index [BMI] 19.9 or less, adult; R64 Cachexia; N18.9 Chronic kidney disease, unspecified; J44.9 Chronic obstructive pulmonary disease, unspecified; Z66 Do not resuscitate; Z51.5 Encounter for palliative care; Z87.891 Personal history of nicotine dependence
CPT/HCPCS: 36415; 71045; 74177; 80048; 80053; 81001; 83605; 83735; 85025; 85610; 85730; 87040; 87077; 87086; 87088; 87186; 93005; 96361; 96374; 99285; J0696; J7030; J7040; J7614; Q9967

== ENCOUNTER 2023-11-06 12:06 | Emergency (ER) | payer OTHER ==
--- OUTSIDE RECORDS SUMMARY | 2023-11-06 12:24 | XMS REPORT | Continuity of Care Document ---
Author Name Unknown Address [address] [facility] [address] [place] [address] [facility] Address [address] [facility] [address] [place] [address] Care Team Providers Care Top Steep Tender Name Role Phone Mimi Blakely MD Primary Care Physician [phone] MATTHEW CANCINO Attending Clinician Angela JACOB Silva Attending Clinician Unavaila JOE Alonso Attending Clinician UnavaLLOYD Olivia RP Attending Clinician Unavailable MIMI BLAKELY Attending Clinician Unavailable Mita Ngo LCSW Attending Clinician [phone] Mimi Blakely MD Attending Clinician +[phone] JM ESPINAL Attending Clinician Unavailable JM ESPINAL Attending Clinician Unavailable Gibran Chappell MD Attending Clinician [phone] SAMMY TRIPP Attending Clinician Unavailroxy Durand RTGraciela Attending Clinician Unavailab LYNSEY Martinez Attending Clinician Unavailable Lynsey Bell MD Attending Clinician [phone] Lloyd Loza MD Rp Attending Clinician +[phone] TOMAS MARTIN Attending Clinician Unavailab Tomas Smith DO Attending Clinician [phone] Fellow, Pulmonary Attending Clinician UnavailDelbert Buchanan MD Attending Clinician [phone] DELBERT TAYLOR Attending Clinician Unava ilable Doctor Unassigned, [place] Attending Clinician U yuval Simpson MD, Cat Attending Clinician + [phone] CIELO KONG Attending Clinician Unavail able Dilan OLSON, Cielo Camargo Attending Clinician [phone] Joe Bird Attending Clinician [phone] Greg Jimenez MD Attending Clinician [phone] GREG JIMENEZ Attending Clinician Unavailable ABNER OTERO Attending Clinician Unavailable Moshe RT, Carmen C Attending Clinician Unavailab damon Otero MD, Abner Attending Clinician [phone] Pcp-Lab Attending Clinician Unavailable Tomasa DIAZ, Rukhsana Attending Clinician [phone] Elissa Handy Attending Clinician +[phone] SAMUEL BREEN Attending Clinician Unavailable Samuel Breen MD Attending Clinician +[phone] MICHAEL NUNEZ Attending Clinician Unavailable Michael Winston Attending Clinician +[phone] ARIANNE CHAPPELL Attending Clinician Unavailable Helen Deutsch MA Attending Clinician Unavaila ble Testing, [facility] Pulmonary Function Attending Clinic felix Unavailable Dandy MAURER, Camelia Ellsworth Attending Clinician Unavailab Laith Patel DO Attending Clinician [phone] Elidia Solomon DO Attending Clinician +[phone] RUKHSANA RANDOLPH Attending Clinician Unavailable QUINN DAMON Attending Clinician Unavailab Arianne Mcdaniel Attending Clinician +[phone] Sammy Tripp MD Attending Clinician + [phone] Quinn Damon MD Attending Clinician + [phone] Roxana Lezama Attending Clinician +[phone] ROXANA IQBAL Attending Clinician Unavailable SONYA QUICK Attending Clinician Unavaila Milo Evans MD Attending Clinician +[phone] Nikhil Juarez MD Attending Clinician +[phone] NIKHIL JUAREZ Attending Clinician Unavailab ELISSA Acosta Attending Clinician Unavailable Nazario Scott MD Attending Clinician [phone] Zahira MAURER, Agatha Paul Attending Clinician Unavail able John OLSON, Geetha Attending Clinician Unavailable FARHAT YBARRA Attending Clinician Unavailable Allen OLSON, Devante Attending Clinician [phone] Farhat Ybarra MD Attending Clinician [phone] Carlos SUN, Stacia Garcia Attending Clinician Unava ilable NICOLE DAWSON Attending Clinician Unavailbill Dawson MD, Nicole Attending Clinician + [phone] MARCY WILLETT Attending Clinician Unavailabl cortney Chappell BRICK PAVING CHECKER, Linda Attending Clinician [phone] LINDA CHAPPELL Attending Clinician Unavailable Only, Pcp Test Attending Clinician Unavailable Karey OLSON, Ronen Driver Attending Clinician [phone] RONEN EDEN Attending Clinician Unavailable [facility]-Lab Attending Clinician Unavailable Vls-Lab Attending Clinician Unavailable Jacob Mao MD Attending Clinician [phone] Lilia Palacio Attending Clinician [phone] Nguyen OLSON, Sonya Cortez Attending Clinician +[phone] Mercedes OLSON, Marcy Attending Clinician Unav ailable 2, Lilo Mda Procedure Rm Attending Clinician Unav ailable Rajeev OLSON, Anatoly Tidwell Attending Clinician + [phone] JORGE FERRARI Attending Clinician Unavail able Barak OLSON, Matthew Hurtado Attending Clinician Tc MAURER, Camelia Cummings Attending Clinician Unavaila ANATOLY Chan Attending Clinician UnavailTONA Staley JR Attending Clinician Unavaila ble Faculty, Vascular Surg Attending Clinician Unava ilable 1, [facility] Oncology Linac Attending Clinician Un available Nacho OLSON, Holden Attending Clinician [phone], [facility] Adult Infusion Nurse Attending Clinician Unavailable Mi Henson Attending Clinician +[phone] Helen Ortiz MD Attending Clinician +[phone] Nurse, [facility] Infusion Attending Clinician Unavaila ble Only, [facility] Test Attending Clinician Unavailable Mariam MAURER, Marcy Rowan Attending Clinician Unav ruyable Graciela Eisenberg Attending Clinician Unavailbill dos santos Physics, [facility] Rad Onc Attending Clinician Unavail able Unknown, Attending Attending Clinician Unavailab Jorge Lo DO Attending Clinician [phone] Kaylyn Manriquez MD Attending Clinician +[phone] KAYLYN MANRIQUEZ Attending Clinician Unavailable Martell Fontenot MD Attending Clinician [phone] Kamlesh Egan MD Attending Clinician +[phone] Fercho Vivas MD Attending Clinician +[phone], [facility] Adult Infusion Nurse Attending Clinician Unavailable [facility], [facility] Lab Main Attending Clinician UnavailJesse Paz MD Attending Clinician Unavailab KAMLESH Vázquez Attending Clinician Unavailable UNKNOWN, ATTENDING Attending Clinician Unavailab Mia Garcia MD Attending Clinician +[phone] MIA SALAZAR Attending Clinician Unavailable ANASTASIA NUNEZ Attending Clinician Unavailable Tuan Jordan MD Attending Clinician +[phone] Anastasia Nunez MD Attending Clinician +[phone] , [facility] Surg Spec Procedure Attending Clinician Unavailable PRACHI BERG Attending Clinician Unavailable Prachi Sargent Attending Clinician +[phone] Tara Richards MD Attending Clinician +[phone] VIVIANA FITZPATRICK Attending Clinician Unava ilable Viviana Fitzpatrick MD Attending Clinician +[phone] Raffi Brewer MD Attending Clinician +- [phone] RAFFI BREWER Attending Clinician UnavailCarlton Stephenson MD Attending Clinician +[phone] ALESSANDRO CARBAJAL Attending Clinician UnavaMATTHEW Figueredo Admitting Clinician Angela JACOB Silva Admitting Clinician Unavaila TOMAS Aviles Admitting Clinician Unavailab SAMUEL Escobedo Admitting Clinician Unavailable Samuel Breen MD Admitting Clinician +[phone] JM ESPINAL Admitting Clinician Unavailable Elidia Solomon DO Admitting Clinician ELIDIA SOLOMON Admitting Clinician Unavailable DEVANTE VILLA Admitting Clinician Unavailable Devante Villa MD Admitting Clinician DAGO ELOLidia EDDY Admitting Clinician Unavailable NICOLE DAWSON Admitting Clinician Unavailabl e Nicole Dawson MD Admitting Clinician [phone] LINDA CHAPPELL Admitting Clinician Unavailable Jacob Mao MD Admitting Clinician +[phone] PRACHI BERG Admitting Clinician Unavailable NIKHIL JUAREZ Admitting Clinician Unavailab RAFFI Pearce Admitting Clinician Unavailabl e Payers Payer Name Policy Type Policy Number Effective Date Expirati on Date Source [employer] [id number] 2011 00:00:00 [employer] MED[employer]VANTAGE [id number] 2007 00:00:00 Problems Condition Name Condition Details Condition Category Status Onset Date Resolution Date Last Treatment Date Treating Clinician Comments Source Abnormal stress echo Abnormal stress echo Disease Active 2022-05 0- 00:00: 00 [facility] Tachycardi a Tachycardi a Disease Active 11-08 00:00: 00 [facility] Intraventr icular conduction defect Intraventr icular conduction defect Disease Active 11-08 00:00: 00 [facility] Other hyperlipid emia Other hyperlipid emia Disease Active 11-08 00:00: 00 [facility] Acute on chronic respirator y failure with hypoxia Acute on chronic respirator y failure with hypoxia Disease Active - 00:00: 00 [facility] Acute respirator y failure with hypoxia Acute respirator y failure with hypoxia Disease Active 2- 00:00: 00 [facility] Primary hypertensi on Primary hypertensi on Disease Active 2021-05- 00:00: 00 [facility] 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 Added automatic ally from request for surgery [id number] [facility] Total, mature age-relate d cataract Total, mature age-relate d cataract Disease Active 10-01 00:00: 00 Overview: Formattin g of this note might be different from the original. Added automatic ally from request for surgery [id number] [facility] Urothelial carcinoma of bladder Urothelial carcinoma of bladder Disease Active 2019-05 00:00: 00 Overview: Formattin g of this note might be different from the original. 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 Disease Active 01-27 00:00: 00 [facility] Long-term use of high-risk medication Long-term use of high-risk medication Disease Active 01-27 00:00: 00 [facility] Therapeuti c drug monitoring Therapeuti c drug monitoring Disease Active 2014-05 0 00:00: 00 [facility] Pain, joint, multiple sites Pain, joint, multiple sites Disease Active 2014-05 0 00:00: 00 [facility] PAD (periphera l artery disease) PAD (periphera l artery disease) Disease Active 01-07 00:00: 00 [facility] Skin lesions Skin lesions Disease Active 09-05 00:00: 00 [facility] Difficulty with activities of daily living Difficulty with activities of daily living Disease Active 06-06 00:00: 00 [facility] Limitation of joint motion of wrist, left Limitation of joint motion of wrist, left Disease Active 06-06 00:00: 00 [facility] Wrist swelling, left Wrist swelling, left Disease Active 06-06 00:00: 00 [facility] DRUJ (distal radioulnar joint) arthrosis, primary, left DRUJ (distal radioulnar joint) arthrosis, primary, left Disease Active 06-06 00:00: 00 [facility] Chronic wrist pain, left Chronic wrist pain, left Disease Active 06-06 00:00: 00 [facility] Tobacco use Tobacco use Disease Active 05-03 00:00: 00 [facility] 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 Disease Active 2013-05 00:00: 00 [facility] Senile nuclear sclerosis, bilateral Senile nuclear sclerosis, bilateral Disease Active 2013-05 00:00: 00 [facility] Maculopath y Maculopath y Disease Active 2013-05 00:00: 00 [facility] 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, dry, 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, dry, both eyes Disease Active 2013-05 00:00: 00 [facility] Family history of autoimmune disorder Family history of autoimmune disorder Disease Active 12-25 00:00: 00 [facility] History of gout History of gout Disease Active 12-25 00:00: 00 [facility] NICK positive NICK positive Disease Active 12-25 00:00: 00 [facility] Iron deficiency anemia, unspecifie d Iron deficiency anemia, unspecifie d Disease Active [facility] Rheumatoid arthritis Rheumatoid arthritis Disease Resolve d 2013-05 00:00: 00 2017-01-27 00:00:00 2021-11-15 00:32:56 [facility] Inflammato ry arthritis Inflammato ry arthritis Disease Resolve d 12-25 00:00: 00 2017-01-27 00:00:00 2017-01-27 10:51:48 [facility] Polyarticu lar arthritis Polyarticu lar arthritis Disease Resolve d 12-25 00:00: 00 2017-01-27 00:00:00 2017-01-27 10:52:28 [facility] Long-term use of Plaquenil Long-term use of Plaquenil Disease Resolve d 2013-05 00:00: 00 2014-09-05 00:00:00 2014-09-05 11:21:32 [facility] Allergies, Adverse Reactions, Alerts Allergy Name Allergy Type Status Severity Reaction(s) Onset Date Inactive Date Treating Clinician Comments Source HYDROXYC HLOROQUI NE DRUG INGREDI Active Other-Cmnt 05-12 00:00: 00 [facility] Hydroxyc hloroqui ne Propensi ty to adverse reaction s Active Other - See comments 05-12 00:00: 00 Ophthalmo logist has recommend ed against Hydroxych loroquine . [facility] Sulfa (Sulfona mide Antibiot ics) Propensi ty to adverse reaction s Active Rash 12-25 00:00: 00 [facility] SULFA (SULFONA MIDE ANTIBIOT ICS) Drug Class Active Rash 12-25 00:00: 00 [facility] CODEINE DRUG INGREDI Active Other-Cmnt 12-03 00:00: 00 [facility] Codeine Propensi ty to adverse reaction s Active Other - See comments 12-03 00:00: 00 headaches [facility] Social History Social Habit Start Date Stop Date Quantity Comments Source History SDOH Social Connections Get Together [facility] History SDOH Social Connections [facility] History SDOH Social Connections Membership [facility] History SDOH Social Connections Meetings [facility] Gender identity [facility] Alcoholic beverage intake 2023-08-11 00:00:00 2023-08-11 00:00:00 0 /d [facility] Alcohol intake 2023-08-11 00:00:00 2023-08-11 00:00:00 0 /d [facility] History of Social function 2023-06-07 00:00:00 2023-06-07 00:00:00 [facility] History SDOH Social Connections Phone 2022-11-04 00:00:00 2022-11-04 00:00:00 1 [facility] History SDOH Social Connections Living 2022-11-04 00:00:00 2022-11-04 00:00:00 8 [facility] History SDOH Physical Activity DPW 2022-11-04 00:00:00 2022-11-04 00:00:00 0 [facility] History SDOH Physical Activity MPS 2022-11-04 00:00:00 2022-11-04 00:00:00 0 [facility] History SDOH Financial 2022-11-04 00:00:00 2022-11-04 00:00:00 5 [facility] History SDOH Food Worry 2022-11-04 00:00:00 2022-11-04 00:00:00 1 [facility] History SDOH Food Scarcity 2022-11-04 00:00:00 2022-11-04 00:00:00 1 [facility] History SDOH Transport Med 2022-11-04 00:00:00 2022-11-04 00:00:00 2 [facility] History SDOH Transport Non-Med 2022-11-04 00:00:00 2022-11-04 00:00:00 2 [facility] History SDOH Housing Unable to Pay 2022-11-04 00:00:00 2022-11-04 00:00:00 2 [facility] History SDOH Housing Places Lived 2022-11-04 00:00:00 2022-11-04 00:00:00 1 [facility] History SDOH Housing Homeless Last Year 2022-11-04 00:00:00 2022-11-04 00:00:00 2 [facility] History SDOH Alcohol Frequency 2022-11-04 00:00:00 2022-11-04 00:00:00 1 [facility] Cigarettes smoked current (pack per day) - Reported 2022-11-03 00:00:00 2022-11-03 00:00:00 [facility] Cigarette pack-years 2022-11-03 00:00:00 2022-11-03 00:00:00 [facility] Tobacco use and exposure 2022-11-03 00:00:00 2022-11-03 00:00:00 Smokeless tobacco non-user [facility] Exposure to SARS-CoV-2 (event) 2022-08-23 00:00:00 2022-09-02 13:02:00 Not sure [facility] History SDOH Alcohol Std Drinks 2022-06-10 00:00:00 2022-06-10 00:00:00 0 [facility] History SDOH Alcohol Binge 2022-06-10 00:00:00 2022-06-10 00:00:00 1 [facility] Tobacco Comment 2022-06-09 00:00:00 2022-06-09 00:00:00 Periodic non-smoker, last cigarette 3 days ago. [facility] Alcohol Comment 2019-11-27 00:00:00 2019-11-27 00:00:00 social drinking [facility] History of tobacco use 1969-08-22 00:00:00 2019-08-23 00:00:00 Cigarette Smoker [facility] Sex assigned at 1940 00:00:00 1940 00:00:00 [facility] Smoking Status Start Date Stop Date Source Ex-smoker 2022-11-03 00:00:00 2022-11-03 00:00:00 [facility] Occasional tobacco smoker 2020-07-02 00:00:00 [facility] Smokes tobacco daily 2019-10-25 00:00:00 [facility] Medications Ordered Medication Name Filled Medication Name Start Date Stop Date Current Medication? Ordering Clinician Indication Dosage Frequency Signature (SIG) Comments Components Source levoFLOXaci n 500 mg tablet 10-17 00:00: 00 Yes 500mg Take 1 tablet by mouth every 24 (twenty-fo ur) hours. [facility] cephALEXin 500 mg capsule 10-12 00:00: 00 10-17 00:00 :00 No 500mg Take 1 capsule by mouth in the morning and 1 capsule at noon and 1 capsule in the evening. Do all this for 7 days. [facility] busPIRone 10 mg tablet 10-02 00:00: 00 Yes [id number] 20mg Take 2 tablets by mouth in the morning and 2 tablets at noon and 2 tablets in the evening. [facility] ipratropium -albuteroL (DUONEB) 0.5 mg-3 mg(2.5 mg base)/3 mL nebulizer solution 3 mL 09-06 21:00: 00 09-06 20:08 :00 No 3mL 3 mL, Inhalation , ONCE, 1 dose, On Tue09/07/23 at 1600, Routine [facility] BUSPIRONE 10 mg tablet 09-04 00:00: 00 10-02 00:00 :00 No [id number] TAKE 1 TABLET BY MOUTH 3 TIMES A DAY NEEDED FOR ANXIETY/PA JAYLEN ATTACK [facility] albuterol 90 mcg/actuati on inhaler 08-21 00:00: 00 Yes [id number] 2{puff} Inhale 2 Puffs every 4 (four) hours as needed for Wheezing or Shortness of Breath. [facility] tetrahydroz oline 0.05 % ophthalmic solution 08-10 14:05: 31 Yes 1[drp] Take 1 Drop in the morning and 1 Drop in the evening. [facility] VIT A/VIT C/VIT E/ZINC/NAHUM ER (ICAPS AREDS ORAL) 08-10 14:05: 15 Yes Take by mouth daily. [facility] SERTraline 100 mg tablet 08-10 00:00: 00 Yes [id number] 150mg Take 1.5 tablets by mouth in the morning. [facility] BUSPIRONE 10 mg tablet 08-07 00:00: 00 Yes [id number] TAKE 1 TABLET BY MOUTH 3 TIMES A DAY NEEDED FOR ANXIETY/PA JAYLEN ATTACK [facility] VIT A/VIT C/VIT E/ZINC/NAHUM ER (ICAPS AREDS ORAL) 08-04 10:28: 47 Yes Take by mouth daily. [facility] tetrahydroz oline 0.05 % ophthalmic solution 08-04 10:28: 47 Yes 1[drp] Take 1 Drop in the morning and 1 Drop in the evening. [facility] albuterol 2.5 mg/0.5 mL nebulizer solution 08-04 00:00: 00 Yes [id number] 2.5mg Inhale 0.5 mL every 6 (six) hours as needed for Wheezing. [facility] VIT A/VIT C/VIT E/ZINC/NAHUM ER (ICAPS AREDS ORAL) 07-14 10:39: 46 Yes Take by mouth daily. [facility] tetrahydroz oline 0.05 % ophthalmic solution 07-14 10:39: 46 Yes 1[drp] Take 1 Drop in the morning and 1 Drop in the evening. [facility] busPIRone 10 mg tablet 07-14 00:00: 00 08-07 00:00 :00 No [id number] 10mg Take 1 tablet by mouth 3 (three) times daily as needed (Anxiety/p anic attack). [facility] BUSPIRONE 5 mg tablet 06-24 00:00: 07-14 00:00 :00 No [id number] TAKE ONE TABLET BY MOUTH 3 (THREE) TIMES DAILY NEEDED ( ANXIETY ATTACK) [facility] SERTraline 100 mg tablet 06-13 00:00: 00 08-10 00:00 :00 No [id number] 100mg Take 1 tablet by mouth in the morning. [facility] ipratropium -albuteroL (DUONEB) 0.5 mg-3 mg(2.5 mg base)/3 mL nebulizer solution 3 mL 06-10 18:00: 00 Yes 3mL 3 mL, Inhalation , QID, First dose on Tue06/10/23 at 1200, Until Discontinu ed, Routine [facility] hydrOXYzine (ATARAX) tablet 25 mg 06-10 18:00: 00 06-10 18:19 :00 No 25mg 25 mg, Oral, ONCE, 1 dose, On Tue06/10/23 at 1200, ANH [facility] leflunomide (ARAVA) 20 mg tablet 06-10 00:00: 00 Yes [id number] 20mg Take 1 tablet by mouth in the morning. [facility] VIT A/VIT C/VIT E/ZINC/NAHUM ER (ICAPS AREDS ORAL) 06-07 11:02: 10 Yes Take by mouth daily. [facility] atorvastati n 40 mg tablet 06-03 00:00: 00 Yes TAKE ONE TABLET BY MOUTH AT BEDTIME [facility] famotidine 20 mg tablet 05-27 00:00: 00 Yes [id number] 20mg Take 1 tablet by mouth in the morning. [facility] busPIRone 5 mg tablet 05-27 00:00: 00 06-24 00:00 :00 No [id number] 5mg Take 1 tablet by mouth 3 (three) times daily as needed (anxiety attack). [facility] meloxicam 7.5 mg tablet 05-24 00:00: 00 09-21 04:59 :00 No [id number] 9105 7.5mg Take 1 tablet by mouth once daily as needed for Pain (scale 7-10) or Pain (scale 4-6) for up to 120 days. [facility] metoprolol tartrate 100 mg tablet 2022-05 00:00: 00 Yes TAKE ONE TABLET BY MOUTH EVERY MORNING AND ONE IN THE EVENING [facility] VIT A/VIT C/VIT E/ZINC/NAHUM ER (ICAPS AREDS ORAL) 2022-05 10:54: 26 Yes Take by mouth daily. [facility] tetrahydroz oline 0.05 % ophthalmic solution 2022-05 10:54: 20 Yes 1[drp] Take 1 Drop in the morning and 1 Drop in the evening. [facility] SERTraline 100 mg tablet 2022-05 00:00: 00 06-13 00:00 :00 No [id number] 100mg Take 1 tablet by mouth in the morning. [facility] aflibercept (EYLEA) intravitrea l syringe 2 mg 2022-05 17:03: 00 03-07 17:03 :00 No [id number] 2mg 2 mg, Intravitre al, ONCE PRN, 1 dose, Starting on Tue03/07/23 at 1103, Until Tue03/07/23 at 1103, Routine [facility] albuterol (PROVENTIL) 2.5 mg /3 mL (0.083 %) nebulizer solution 2.5 mg 2022-05 01:00: 00 Yes 2.5mg 2.5 mg, Inhalation , QID, First dose on Tue02/15/23 at 2000, Until Discontinu ed, Routine [facility] it[facility] ipratropium (ATROVENT) 0.02 % nebulizer solution 0.5 mg 2022-05 01:00: 00 Yes .5mg 0.5 mg, Inhalation , QID, First dose on Tue02/15/23 at 2000, Until Discontinu ed, Routine [facility] ipratropium -albuteroL (DUONEB) 0.5 mg-3 mg(2.5 mg base)/3 mL nebulizer solution 3 mL 2022-05 22:30: 00 02-15 21:31 :00 No 3mL 3 mL, Inhalation , ONCE, 1 dose, On Tue02/15/23 at 1730, Routine [facility] acetaminoph en (TYLENOL) tablet 650 mg 2022-05 18:16: 31 Yes [id number] 650mg 650 mg, Oral, Q6HPRN, Starting on Tue02/15/23 at 1316, Until Discontinu ed, Routine, Pain (scale 1-3) [facility] VIT A/VIT C/VIT E/ZINC/NAHUM ER (ICAPS AREDS ORAL) 2022-05 17:01: 00 Yes Take by mouth daily. [facility] tetrahydroz oline 0.05 % ophthalmic solution 2022-05 17:01: 00 Yes 1[drp] Take 1 Drop in the morning and 1 Drop in the evening. [facility] iopamidol (ISOVUE 370-500 mL) injection 2022-05 16:45: 55 02-15 17:05 :37 No ONCE INTRA PROCEDURE, Starting on Tue02/15/23 at 1145, Until Tue02/15/23 at 1205, Routine, CV Intraproce dure [facility] hydralAZINE (APRESOLINE ) injection 2022-05 16:30: 57 02-15 17:05 :37 No ONCE INTRA PROCEDURE, Starting on Tue02/15/23 at 1130, Until Tue02/15/23 at 1205, STAT, CV Intraproce dure [facility] lidocaine 1% (PF) (XYLOCAINE) injection 2022-05 15:58: 44 02-15 17:05 :37 No ONCE INTRA PROCEDURE, Starting on Tue02/15/23 at 1058, Until Tue02/15/23 at 1205, Routine, CV Intraproce dure [facility] midazolam (VERSED) injection 2022-05 15:53: 30 02-15 17:05 :37 No ONCE INTRA PROCEDURE, Starting on Tue02/15/23 at 1053, Until Tue02/15/23 at 1205, Routine, CV Intraproce dure [facility] FENTanyl PF (SUBLIMAZE (PF)) injection 2022-05 15:53: 20 02-15 17:05 :37 No ONCE INTRA PROCEDURE, Starting on Tue02/15/23 at 1053, Until Tue02/15/23 at 1205, Routine, CV Intraproce dure [facility] aspirin chewable tablet 81 mg 2022-05 13:30: 00 02-15 12:44 :00 No [id number] 81mg 81 mg, Oral, ONCE, 1 dose, On Tue02/15/23 at 0830, ANH [facility] ipratropium 17 mcg/actuati on inhaler 2022-05 00:00: 00 Yes [id number] 2{puff} Inhale 2 Puffs 4 (four) times daily. [facility] NaCl 0.9% (NS) IV infusion 250 mL 01-25 17:30: 00 Yes [id number] 250mL at 50 mL/hr, IV Infusion, CONTINUOUS , Starting on Tue01/25/23 at 1230, Until Discontinu ed, Routine
To keep vein open
[facility] metoprolol (LOPRESSOR) injection 5 mg 01-25 17:15: 00 01-25 17:00 :00 No [id number] 5mg 5 mg, Slow IV Push, ONCE, 1 dose, On Tue01/25/23 at 1215, Routine [facility] DOBUTamine (DOBUTREX) 250 mg/250 mL RTU infusion 01-25 16:28: 38 Yes [id number] 5ug/kg/ min 5 mcg/kg/min ?59.9 kg (17.97 [...] the Dobutamine infusion. (see Adjunctive Therapy)<b r> [facility] aflibercept (EYLEA) intravitrea l syringe 2 mg 01-24 17:33: 00 01-24 17:33 :00 No [id number] 2mg 2 mg, Intravitre al, ONCE PRN, 1 dose, Starting on Tue01/24/23 at 1233, Until Tue01/24/23 at 1233, Routine [facility] leflunomide (ARAVA) 20 mg tablet 01-21 00:00: 00 06-10 00:00 :00 No [id number] 20mg Take 1 tablet by mouth in the morning. [facility] foLIC acid 1 mg tablet 01-13 00:00: 00 Yes [id number] 3mg Take 3 tablets by mouth in the morning. [facility] VIT A/VIT C/VIT E/ZINC/NAHUM ER (ICAPS AREDS ORAL) 01-11 12:59: 57 Yes Take by mouth daily. [facility] tetrahydroz oline 0.05 % ophthalmic solution 01-11 12:59: 57 Yes 1[drp] Take 1 Drop in the morning and 1 Drop in the evening. [facility] VIT A/VIT C/VIT E/ZINC/NAHUM ER (ICAPS AREDS ORAL) 12-22 11:00: 59 Yes Take by mouth daily. [facility] tetrahydroz oline 0.05 % ophthalmic solution 12-22 11:00: 56 Yes 1[drp] Take 1 Drop in the morning and 1 Drop in the evening. [facility] SERTraline 50 mg tablet 12-22 00:00: 00 03-28 00:00 :00 No [id number] Take 1 tablet daily for 30 days and then take 1.5 tablets daily. [facility] aflibercept (EYLEA) intravitrea l syringe 2 mg 12-16 17:13: 00 12-16 17:13 :00 No [id number] 2mg 2 mg, Intravitre al, ONCE PRN, 1 dose, Starting on Tue12/16/22 at 1213, Until Tue12/16/22 at 1213, Routine [facility] VIT A/VIT C/VIT E/ZINC/NAHUM ER (ICAPS AREDS ORAL) 12-15 15:11: 47 Yes Take by mouth daily. [facility] tetrahydroz oline 0.05 % ophthalmic solution 12-15 15:11: 47 Yes 1[drp] Take 1 Drop in the morning and 1 Drop in the evening. [facility] VIT A/VIT C/VIT E/ZINC/NAHUM ER (ICAPS AREDS ORAL) 11-15 16:15: 02 Yes Take by mouth daily. [facility] tetrahydroz oline 0.05 % ophthalmic solution 11-15 16:15: 02 Yes 1[drp] Take 1 Drop in the morning and 1 Drop in the evening. [facility] fluticasone propionate 110 mcg/actuati on inhaler 11-15 00:00: 00 12-16 04:59 :00 No [id number] 2{puff} Inhale 2 Puffs every 12 (twelve) hours for 30 days. [facility] melatonin (MELATIN) tablet 3 mg 11-12 02:00: 00 Yes 3mg 3 mg, Oral, QHS, First dose on Tue11/11/22 at 2100, Until Discontinu ed, Routine [facility] metoprolol tartrate (LOPRESSOR) tablet 100 mg 11-08 01:00: 00 Yes 100mg 100 mg, Oral, BID, First dose (after last modificati on) on Tue11/07/22 at 2000, Until Discontinu ed, Routine [facility] azithromyci n (ZITHROMAX) tablet 500 mg 11-04 00:00: 00 11-04 01:04 :00 No 500mg 500 mg, Oral, ONCE, 1 dose, On Tue11/03/22 at 1900, Routine
Reason for Anti-Infec tive: Empiric Therapy for Suspected Infection< br>Empiric Therapy Site: Respirator y
Durat ion of therapy: [address] [facility] atorvastati n (LIPITOR) tablet 40 mg 11-03 02:00: 00 Yes 40mg 40 mg, Oral, QHS, First dose on Tue11/02/22 at 2100, Until Discontinu ed, Routine [facility] guaiFENesin (FENESIN IR) tablet 400 mg 11-03 01:00: 00 Yes 400mg 400 mg, Oral, Q4H, First dose on Tue11/02/22 at 2000, Until Discontinu ed, Routine [facility] SERTraline (ZOLOFT) tablet 25 mg 11-02 14:00: 00 Yes 25mg 25 mg, Oral, DAILY, First dose on Tue11/02/22 at 0900, Until Discontinu ed, Routine [facility] leflunomide (ARAVA) tablet 20 mg 11-02 14:00: 00 Yes 20mg 20 mg, Oral, DAILY, First dose on Tue11/02/22 at 0900, Until Discontinu ed, Routine [facility] foLIC acid (FOLATE) tablet 3 mg 11-02 14:00: 00 Yes 3mg 3 mg, Oral, DAILY, First dose on Tue11/02/22 at 0900, Until Discontinu ed, Routine [facility] aspirin chewable tablet 81 mg 11-02 14:00: 00 Yes 81mg 81 mg, Oral, DAILY, First dose on Tue11/02/22 at 0900, Until Discontinu ed, Routine [facility] enoxaparin (LOVENOX) injection 40 mg 11-02 14:00: 00 Yes 40mg 40 mg, Subcutaneo us, DAILY, First dose on Tue11/02/22 at 0900, Until Discontinu ed, Routine [facility] predniSONE (DELTASONE) tablet 40 mg 11-02 14:00: 00 11-06 13:52 :00 No 40mg 40 mg, Oral, DAILY, 5 doses, First dose on Tue11/02/22 at 0900, Last dose on Tue11/06/22 at 0900, Routine [facility] metoprolol tartrate (LOPRESSOR) tablet 50 mg 11-02 13:00: 00 11-07 19:49 :17 No 50mg 50 mg, Oral, BID, First dose on Tue11/02/22 at 0800, Until Discontinu ed, Routine [facility] cefTRIAXone (ROCEPHIN) 1,000 mg in NaCl [...] y
Durat ion of Therapy: 7 days [facility] VIT A/VIT C/VIT E/ZINC/NAHUM ER (ICAPS AREDS ORAL) 11-02 04:39: 36 Yes Take by mouth daily. [facility] tetrahydroz oline 0.05 % ophthalmic solution 11-02 04:39: 36 Yes 1[drp] Take 1 Drop in the morning and 1 Drop in the evening. [facility] ipratropium -albuteroL (DUONEB) 0.5 mg-3 mg(2.5 mg base)/3 mL nebulizer solution 3 mL 11-02 01:00: 00 Yes 3mL 3 mL, Inhalation , Q4H, First dose on Tue11/01/22 at 2000, Until Discontinu ed, Routine [facility] azithromyci n (ZITHROMAX) 500 mg in NaCl 0.9% (NS) 250 mL VIAL-MATE IV piggyback 11-02 00:00: 00 11-03 17:24 :34 No 500mg 500 mg, IV Piggyback, Q24H ABX, 3 doses, First dose on Tue11/01/22 at 1900, Last dose on Tue11/03/22 at 1900, Administer over 60 Minutes, 250 mL
Reas on for Anti-Infec tive: Empiric Therapy for Suspected Infection< br>Empiric Therapy Site: Respirator y
Durat ion of therapy: 72 hours [facility] guaiFENesin 100 mg/5 mL solution 200 mg 11-01 22:52: 12 Yes 200mg 200 mg, Oral, Q6HPRN, Starting on Tue11/01/22 at 1752, Until Discontinu ed, Routine, Cough [facility] acetaminoph en (TYLENOL) tablet 650 mg 11-01 22:51: 18 Yes 650mg 650 mg, Oral, Q6HPRN, Starting on Tue11/01/22 at 1751, Until Discontinu ed, Routine, Pain (scale 1-3) [facility] ipratropium -albuteroL (DUONEB) 0.5 mg-3 mg(2.5 mg base)/3 mL nebulizer solution 3 mL 11-01 21:30: 00 11-01 20:28 :00 No 3mL 3 mL, Inhalation , ONCE, 1 dose, On Tue11/01/22 at 1630, Routine [facility] methylpredn isolone sod succ (SOLU-MEDRO L) injection 125 mg 11-01 21:15: 00 11-01 20:32 :00 No 125mg 125 mg, Intravenou s, ONCE NOW, 1 dose, On Tue11/01/22 at 1615, Routine [facility] magnesium sulfate in water 2 gram/50 mL (4 %) infusion 2 g 11-01 21:15: 00 11-01 21:32 :00 No 2g 2 g, IV Piggyback, Administer over 60 Minutes, ONCE, 1 dose, On Tue11/01/22 at 1615, Routine [facility] aflibercept (EYLEA) intravitrea l syringe 2 mg 11-01 17:13: 42 11-01 17:13 :00 No [id number] 2mg 2 mg, Intravitre al, ONCE PRN, 1 dose, Starting on 11/01/22 at 1213, Until Tue11/01/22 at 1213, Routine [facility] albuterol 2.5 mg /3 mL (0.083 %) nebulizer solution 10-19 00:00: 00 Yes [id number] 2.5mg Inhale 3 mL every 4 (four) hours as needed for Wheezing or Shortness of Breath. [facility] ity [facility] tiotropium- olodateroL (STIOLTO RESPIMAT) 2.5-2.5 mcg/actuati on Mist 10-19 00:00: 00 Yes [id number] 2{puff} Inhale 2 Puffs in the morning. [facility] ity [facility] albuterol 90 mcg/actuati on inhaler 10-19 00:00: 00 08-21 00:00 :00 No [id number] 2{puff} Inhale 2 Puffs every 4 (four) hours as needed for Wheezing or Shortness of Breath. [facility] it[facility] SERTraline 25 mg tablet 10-01 00:00: 00 12-22 00:00 :00 No [id number] 25mg Take 1 tablet by mouth in the morning. [facility] it[facility] aflibercept (EYLEA) intravitrea l syringe 2 mg 09-30 18:54: 12 09-30 18:54 :00 No [id number] 2mg 2 mg, Intravitre al, ONCE PRN, 1 dose, Starting on Sandra 09/30/22 at 1354, Until Sandra 09/30/22 at 1354, Routine [facility] leflunomide (ARAVA) 20 mg tablet 16 00:00: 00 01-21 00:00 :00 No 20mg Take 1 tablet by mouth in the morning. [facility] it[facility] atorvastati n 40 mg tablet -05 00:00: 00 06-03 00:00 :00 No TAKE ONE TABLET BY MOUTH AT BEDTIME [facility] aflibercept (EYLEA) intravitrea l syringe 2 mg 09-02 18:51: 22 09-02 18:51 :00 No [id number] 2mg 2 mg, Intravitre al, ONCE PRN, 1 dose, Starting on Sandra 09/02/22 at 1351, Until Sandra 09/02/22 at 1351, Routine [facility] VIT A/VIT C/VIT E/ZINC/NAHUM ER (ICAPS AREDS ORAL) 08-30 11:19: 25 Yes Take by mouth daily. [facility] tetrahydroz oline 0.05 % ophthalmic solution 08-26 09:59: 12 Yes 1[drp] Take 1 Drop in the morning and 1 Drop in the evening. [facility] leflunomide 10 mg tablet 08-12 00:00: 00 09-14 00:00 :00 No [id number] 10mg Take 1 tablet by mouth in the morning. [facility] ATORVASTATI N 40 mg tablet 08 00:00: 00 09-03 00:00 :00 No TAKE ONE TABLET BY MOUTH AT BEDTIME [facility] methotrexat e 2.5 mg tablet - 00:00: 00 08-30 00:00 :00 No [id number] Take by mouth TAKE 7 TABLETS BY MOUTH ONCE WEEKLY [facility] VIT A/VIT C/VIT E/ZINC/NAHUM ER (ICAPS AREDS ORAL) 06-24 10:21: 37 Yes Take by mouth daily. [facility] losartan 100 mg tablet - 00:00: 00 09-30 00:00 :00 No 100mg Take 1 tablet by mouth in the morning. [facility] albuterol 90 mcg/actuati on inhaler - 00:00: 00 10-19 00:00 :00 No [id number] 2{puff} Inhale 2 Puffs every 4 (four) hours as needed for Wheezing or Shortness of Breath. [facility] albuterol (VENTOLIN HFA) 90 mcg/actuati on inhaler 06-17 00:00: 00 Yes [id number] 2{puff} Inhale 2 Puffs every 6 (six) hours as needed for Wheezing or Shortness of Breath. [facility] foLIC acid 1 mg tablet 06-17 00:00: 00 01-13 00:00 :00 No [id number] 3mg Take 3 tablets by mouth in the morning. [facility] methotrexat e 2.5 mg tablet 06-17 00:00: 00 06-18 05:59 :00 No [id number] 17.5mg Take 7 tablets by mouth once now [facility] foLIC acid 1 mg tablet 06-15 00:00: 00 08-30 00:00 :00 No [id number] 3mg Take 3 tablets by mouth in the morning. [facility] methotrexat e 2.5 mg tablet 06-15 00:00: 00 06-16 05:59 :00 No [id number] 17.5mg Take 7 tablets by mouth once now [facility] ipratropium 0.02 % nebulizer solution 06-12 00:00: 00 Yes [id number] .5mg Inhale 2.5 mL every 6 (six) hours. [facility] lidocaine 5 % (700 mg/patch) patch 06-12 00:00: 00 06-24 00:00 :00 No [id number] 1{patch } Apply 1 Patch to area(s) in the morning for 14 days. [facility] predniSONE 20 mg tablet 06-12 00:00: 00 06-16 05:59 :00 No [id number] 40mg Take 2 tablets by mouth in the morning for 3 days. [facility] lidocaine (LIDODERM) 5 % (700 mg/patch) patch 1 Patch 06-11 15:00: 00 Yes 1{patch } 1 Patch, Topical, Administer over 12 Hours, DAILY, First dose (after last reorder) on Tue06/11/22 at 0900, Until Discontinu ed, Routine [facility] VIT A/VIT C/VIT E/ZINC/NAHUM ER (ICAPS AREDS ORAL) 06-11 14:16: 51 Yes Take by mouth daily. [facility] Nebulizer & Compressor For Neb Osiel 06-11 00:00: 00 Yes [id number] Use as directed [facility] Nebulizer & Compressor For Neb Osiel 06-11 00:00: 00 Yes [id number] Use as directed [facility] HYDROcodone -acetaminop hen 5-325 mg tablet 06-11 00:00: 00 06-24 00:00 :00 No [id number] 1{tbl} Take 1 tablet by mouth every 6 (six) hours as needed for Pain (scale 4-6) for up to 15 doses. Indication s: [facility] S[facility] 1 % gel 06-11 00:00: 00 06-24 00:00 :00 No [id number] Apply to area(s) 2 (two) times daily as needed for Pain (scale 4-6) or Pain (scale 1-3). [facility] it[facility] ipratropium 0.02 % nebulizer solution 06-11 00:00: 00 06-12 00:00 :00 No [id number] .5mg Inhale 2.5 mL every 6 (six) hours for 30 days. [facility] it[facility] lidocaine (LIDODERM) 5 % (700 mg/patch) patch 1 Patch 06-10 17:45: 00 06-11 05:08 :00 No 1{patch } 1 Patch, Topical, Administer over 12 Hours, ONCE, 1 dose, On Sandra 06/10/22 at 1145, Routine [facility] enoxaparin (LOVENOX) injection 40 mg 06-10 15:00: 00 Yes 40mg 40 mg, Subcutaneo us, DAILY, First dose on Tue06/10/22 at 0900, Until Discontinu ed, Routine [facility] losartan (COZAAR) tablet 100 mg 06-10 15:00: 00 Yes 100mg 100 mg, Oral, DAILY, First dose on Tue06/10/22 at 0900, Until Discontinu ed, Routine [facility] foLIC acid (FOLATE) tablet 2 mg 06-10 15:00: 00 Yes 2mg 2 mg, Oral, DAILY, First dose on Tue06/10/22 at 0900, Until Discontinu ed, Routine [facility] aspirin chewable tablet 81 mg 06-10 15:00: 00 Yes 81mg 81 mg, Oral, DAILY, First dose on Tue06/10/22 at 0900, Until Discontinu ed, Routine [facility] predniSONE (DELTASONE) tablet 40 mg 06-10 15:00: 00 06-14 14:59 :00 No 40mg 40 mg, Oral, DAILY, 4 doses, First dose on Tue06/10/22 at 0900, Last dose on Tue06/13/22 at 0900, Routine [facility] ipratropium (ATROVENT) 0.02 % nebulizer solution 0.5 mg 06-10 03:45: 00 Yes .5mg 0.5 mg, Inhalation , Q6H, First dose on Tue06/09/22 at 2145, Until Discontinu ed, Routine [facility] albuterol (PROVENTIL) 2.5 mg /3 mL (0.083 %) nebulizer solution 2.5 mg 06-10 03:45: 00 Yes 2.5mg 2.5 mg, Inhalation , Q6H, First dose on Tue06/09/22 at 2145, Until Discontinu ed, Routine [facility] metoprolol tartrate (LOPRESSOR) tablet 100 mg 06-10 03:45: 00 Yes 100mg 100 mg, Oral, BID, First dose on Tue06/09/22 at 2145, Until Discontinu ed, Routine [facility] atorvastati n (LIPITOR) tablet 40 mg 06-10 03:45: 00 Yes 40mg 40 mg, Oral, QHS, First dose on Tue06/09/22 at 2145, Until Discontinu ed, Routine [facility] ondansetron (ZOFRAN (PF)) injection 4 mg 06-10 03:40: 51 Yes 4mg 4 mg, Slow IV Push, Q6HPRN, Starting on Tue06/09/22 at 2140, Until Discontinu ed, Routine, Nausea and Vomiting (N/V) [facility] HYDROcodone -acetaminop hen (NORCO 5) 5-325 mg tablet 1 tablet 06-10 03:40: 36 06-12 03:39 :36 No 1{tbl} 1 tablet, Oral, Q6HPRN, Starting on Tue06/09/22 at 2140, Until Tue06/11/22 at 2139, Routine, Pain (scale 4-6) [facility] acetaminoph en (TYLENOL) tablet 650 mg 06-10 03:39: 44 Yes 650mg 650 mg, Oral, Q6HPRN, Starting on Tue06/09/22 at 2139, Until Discontinu ed, Routine, Pain (scale 1-3), Temp > 38 C [facility] iopamidol (ISOVUE 370-500 mL) injection 79 mL 06-10 00:15: 00 06-10 00:15 :00 No [id number] 79mL 79 mL, Intravenou s, ONCE, 1 dose, On Tue06/09/22 at 1815, Routine [facility] VIT A/VIT C/VIT E/ZINC/NAHUM ER (ICAPS AREDS ORAL) 06-09 21:41: 45 Yes Take by mouth daily. [facility] ipratropium -albuteroL (DUONEB) 0.5 mg-3 mg(2.5 mg base)/3 mL nebulizer solution 3 mL 06-09 20:45: 00 06-09 20:07 :00 No 3mL 3 mL, Inhalation , ONCE NOW, 1 dose, On Tue06/09/22 at 1445, [facility] predniSONE (DELTASONE) tablet 40 mg 06-09 19:45: 00 06-09 20:33 :00 No 40mg 40 mg, Oral, ONCE, 1 dose, On Tue06/09/22 at 1345, ANH [facility] VIT A/VIT C/VIT E/ZINC/NAHUM ER (ICAPS AREDS ORAL) 05-31 12:08: 35 Yes Take by mouth daily. [facility] VIT A/VIT C/VIT E/ZINC/NAHUM ER (ICAPS AREDS ORAL) 05-25 13:44: 56 Yes Take by mouth daily. [facility] iopamidol (ISOVUE 370-500 mL) injection 80 mL 05-24 17:30: 00 05-24 17:27 :00 No [id number] 80mL 80 mL, Intravenou s, ONCE, 1 dose, On Tue05/24/22 at 1130, Routine [facility] methotrexat e 2.5 mg tablet 05-10 00:00: 00 06-11 00:00 :00 No [id number] Take by mouth TAKE 7 TABLES BY MOUTH WEEKLY [facility] aflibercept (EYLEA) intravitrea l syringe 2 mg 05-06 17:00: 00 05-06 17:33 :00 No [id number] 2mg [facility] aflibercept (EYLEA) intravitrea l syringe 2 mg 2021-05 18:30: 00 04-08 18:50 :[id number] losartan 100 mg tablet 2021-05 00:00: 00 06-12 00:00 :00 No TAKE ONE TABLET BY MOUTH EVERY MORNING ( APPOINTMEN T NEEDED FOR FURTHER REFILLS CONTACT OFFICE TO SCHEDULE) [facility] aflibercept (EYLEA) intravitrea l syringe 2 mg 2021-05- 20:15: 03-11 20:10 :00 No [id number] 2mg [facility] STIOLTO RESPIMAT 2.5-2.5 mcg/actuati on Mist 2021-05 0-28 00:00: 00 10-19 00:00 :00 No [id number] INHALE TWO INHALATION (S) BY MOUTH DAILY [facility] metoprolol tartrate 100 mg tablet 2021-05 0-10 00:00: 00 04-04 00:00 :00 No TAKE ONE TABLET BY MOUTH EVERY MORNING AND 1 TABLET IN THE EVENING [facility] atorvastati n 40 mg tablet 9-23 00:00: 00 07-07 00:00 :00 No 40mg Take 1 tablet by mouth at bedtime. [facility] METHOTREXAT E 2.5 mg tablet 9-16 00:00: 00 05-10 00:00 :00 No [id number] TAKE 7 TABLES BY MOUTH WEEKLY [facility] VENTOLIN HFA 90 mcg/actuati on inhaler 9-13 00:00: 00 06-12 00:00 :00 No [id number] INHALE TWO PUFFS BY MOUTH EVERY 6 HOURS NEEDED FOR WHEEZING OR FOR SHORTNESS OF BREATH [facility] iodixanoL (VISIPAQUE 270-150 mL) injection 90 mL -12 15:43: 00 01-11 15:43 :00 No [id number] 90mL 90 mL, Intravenou s, ONCE, 1 dose, On Tue01/11/22 at 1100, Routine [facility] metoprolol tartrate 100 mg tablet 8-12 00:00: 00 02-08 00:00 :00 No 100mg Take 1 tablet by mouth in the morning and 1 tablet in the evening. [facility] losartan 100 mg tablet 8-08 00:00: 00 03-18 00:00 :00 No 100mg Take 1 tablet by mouth in the morning. Appointmen t needed for further refills. Please contact office to schedule. Thank you [facility] VIT A/VIT C/VIT E/ZINC/NAHUM ER (ICAPS AREDS ORAL) 8-04 13:11: 55 Yes Take by mouth daily. [facility] fluticasone -umeclidin- vilanter (TRELEGY ELLIPTA) 100-62.5-25 mcg DsDv 8- 00:00: 00 02-26 00:00 :00 No [id number] 1{dose} Inhale 1 Dose daily. [facility] methotrexat e 2.5 mg tablet 7-06 00:00: 00 01-15 00:00 :00 No [id number] 17.5mg Take 7 tablets by mouth weekly [facility] atorvastati n 40 mg tablet 6- 00:00: 00 01-21 00:00 :00 No 40mg Take 1 tablet by mouth at bedtime. [facility] albuterol 90 mcg/actuati on inhaler 3-21 00:00: 00 01-12 00:00 :00 No [id number] 2{puff} Inhale 2 Puffs every 6 (six) hours as needed for Wheezing or Shortness of Breath. [facility] methotrexat e 2.5 mg tablet 2020-05 2-14 00:00: 00 08-23 00:00 :00 No [id number] 17.5mg Take 7 tablets by mouth weekly [facility] foLIC acid 1 mg tablet 2020-05 2-10 00:00: 00 06-17 00:00 :00 No [id number] 2mg Take 2 tablets by mouth daily. [facility] furosemide 20 mg tablet 2020-05 0-20 00:00: 00 12-03 00:00 :00 No [id number] 20mg Take 1 tablet by mouth daily. [facility] ferrous sulfate (IRON ORAL) 2020-05 0-15 11:22: 47 02-13 00:00 :00 No 65mg Take 65 mg by mouth daily. [facility] CALCIUM CARBONATE/V ITAMIN D3 (VITAMIN D-3 ORAL) 2020-05 0-15 11:22: 32 02-13 00:00 :00 No [id number] Take 2,000 Units by mouth daily. [facility] ALBUTEROL 90 mcg/actuati on inhaler 2020-05 0-11 00:00: 00 07-16 00:00 :00 No [id number] INHALE TWO PUFFS BY MOUTH EVERY 4 HOURS NEEDED FOR WHEEZING OR FOR SHORTNESS OF BREATH [facility] atorvastati n 40 mg tablet 11-21 00:00: 00 05-29 00:00 :00 No 40mg Take 1 tablet by mouth at bedtime. Please have fasting labs done for further refills, thank you [facility] metoprolol tartrate 100 mg tablet 11-10 00:00: 00 08-03 00:00 :00 No 100mg Take 1 tablet by mouth 2 (two) times daily. [facility] tiotropium- olodateroL (STIOLTO RESPIMAT) 2.5-2.5 mcg/actuati on Mist 5-10 00:00: 00 05-27 00:00 :00 No [id number] 2{puff} Inhale 2 Puffs daily. [facility] nystatin 100,000 unit/mL suspension 07-21 00:00: 00 02-13 00:00 :00 No [id number] U Take 10 mL by mouth 3 (three) times daily. [facility] lidocaine 2% viscous (LIDOCAINE VISCOUS) 2 % solution 07-17 00:00: 00 12-03 00:00 :00 No [id number] 10mL Take 10 mL by mouth every 4 (four) hours as needed for Oral mucosal pain. Avoids eating or drinking 1 hour after using [facility] clotrimazol e 10 mg margarita 07-17 00:00: 00 12-03 00:00 :00 No [facility] nicotine 10 mg inhaler - 00:00: 00 2021- 10-15 00:00 :00 No [id number] 1{puff} Inhale 1 Puff as needed for Smoking cessation. [facility] albuterol (VENTOLIN HFA) 90 mcg/actuati on inhaler 3-03 00:00: 02-09 00:00 :00 No [id number] 2{puff} Inhale 2 Puffs every 4 (four) hours as needed for Wheezing or Shortness of Breath. [facility] tiotropium- olodateroL (STIOLTO RESPIMAT) 2.5-2.5 mcg/actuati on Mist 3-03 00:00: 00 09-08 00:00 :00 No [id number] 2{puff} Inhale 2 Puffs daily. [facility] ondansetron 4 mg disintegrat ing tablet 06-23 00:00: 00 12-03 00:00 :00 No [id number] 4mg Take 1 tablet by mouth every 8 (eight) hours as needed for Nausea and Vomiting (N/V). [facility] proCHLORper azine 10 mg tablet 06-23 00:00: 00 11-07 00:00 :00 No [id number] 10mg Take 1 tablet by mouth every 6 (six) hours as needed for Nausea and Vomiting (N/V). [facility] foLIC acid 1 mg tablet 06-12 00:00: 00 03-25 00:00 :00 No [id number] 1mg Take 1 tablet by mouth daily. [facility] methotrexat e 2.5 mg tablet 06-12 00:00: 00 12-25 00:00 :00 No [id number] 15mg Take 6 tablets by mouth weekly [facility] losartan 100 mg tablet 06-05 00:00: 00 06-05 00:00 :00 No 100mg Take 1 tablet by mouth daily. [facility] amLODIPine 2.5 mg tablet 2 00:00: 00 09-09 00:00 :00 No [id number] 2.5mg Take 1 tablet by mouth daily. [facility] atorvastati n 40 mg tablet 2019-05 2-15 00:00: 08-12 00:00 :00 No 40mg Take 1 tablet by mouth at bedtime. Please have fasting labs done for further refills, thank you [facility] acetaminoph en (TYLENOL 8 HOUR) 650 mg CR tablet 2019-05 00:00: 12-03 00:00 :00 No [id number] 650mg Take 1 tablet by mouth every 8 (eight) hours as needed for Pain. [facility] atorvastati n 40 mg tablet 2019-05 0-06 00:00: 02-27 00:00 :00 No 40mg Take 1 tablet by mouth at bedtime. [facility] metoprolol tartrate 100 mg tablet 9- 00:00: 00 11-07 00:00 :00 No 100mg Take 1 tablet by mouth 2 (two) times daily. [facility] losartan 100 mg tablet 12-03 00:00: 02-27 00:00 :00 No 100mg Take 1 tablet by mouth daily. [facility] albuterol (VENTOLIN HFA) 90 mcg/actuati on inhaler 12-02 00:00: 00 07-02 00:00 :00 No [id number] 2{puff} Inhale 2 Puffs every 4 (four) hours as needed for Wheezing or Shortness of Breath. [facility] tiotropium- olodaterol (STIOLTO RESPIMAT) 2.5-2.5 mcg/actuati on Mist 7-21 00:00: 00 07-02 00:00 :00 No [id number] 2{puff} Inhale 2 Puffs daily. [facility] oxybutynin chloride 5 mg tablet 7-15 00:00: 00 04-03 00:00 :00 No [id number] 5mg Take 1 tablet by mouth 2 (two) times daily as needed for Bladder spasms. [facility] atorvastati n 40 mg tablet 2020-0 7-10 00:00: 11-29 00:00 :00 No 40mg Take 1 tablet by mouth at bedtime. [facility] proCHLORper azine 10 mg tablet 10-18 00:00: 04-03 00:00 :00 No [id number] 10mg Take 1 tablet by mouth every 6 (six) hours as needed for Nausea and Vomiting (N/V). [facility] dexAMETHaso ne 4 mg tablet 10-18 00:00: 04-03 00:00 :00 No [id number] 4mg Take 1 tablet by mouth 2 (two) times daily. Take on Days 1-5. [facility] acetaminoph en 325 mg tablet 10-16 00:00: 04-03 00:00 :00 No [id number] 650mg Take 2 tablets by mouth every 8 (eight) hours as needed for Pain (scale 4-6). [facility] oxybutynin chloride 5 mg tablet 10-16 00:00: 11-12 00:00 :00 No [id number] 5mg Take 1 tablet by mouth 2 (two) times daily as needed for Bladder spasms. [facility] LOSARTAN 100 mg tablet 08-20 00:00: 12-02 00:00 :00 No TAKE ONE TABLET BY MOUTH DAILY [facility] methotrexat e 2.5 mg tablet 06-22 00:00: 02-27 00:00 :00 No [id number] 15mg Take 6 tablets by mouth weekly [facility] foLIC acid 1 mg tablet 06-22 00:00: 02-27 00:00 :00 No [id number] 1mg Take 1 tablet by mouth daily. [facility] metoprolol tartrate 100 mg tablet 2018-05 0 00:00: 00 01-01 00:00 :00 No 100mg Take 1 tablet by mouth 2 (two) times daily. [facility] albuterol (VENTOLIN HFA) 90 mcg/actuati on inhaler 10-27 00:00: 00 11-29 00:00 :00 No [id number] 2{puff} Inhale 2 Puffs every 4 (four) hours as needed for Wheezing or Shortness of Breath. [facility] tiotropium- olodaterol (STIOLTO RESPIMAT) 2.5-2.5 mcg/actuati on Mist 10-27 00:00: 00 11-19 00:00 :00 No [id number] 2{puff} Inhale 2 Puffs daily. [facility] naproxen 500 mg tablet 10-24 00:00: 00 04-03 00:00 :00 No TAKE ONE TABLET BY MOUTH TWICE A DAY WITH MEALS [facility] aspirin 81 mg chewable tablet 01-08 00:00: 00 Yes 81mg Take 1 Tab by mouth daily. [facility] Immunizations Ordered Immunization Name Filled Immunization Name Date Status Comments Source Pneumococcal 20 Conjugate, PCV20 (Prevnar 20) 2022-12-22 00:00:00 Completed [facility] Pneumococcal 20 Conjugate, PCV20 (Prevnar 20) 2022-12-22 00:00:00 Completed [facility] Pneumococcal 20 Conjugate, PCV20 (Prevnar 20) 2022-12-22 00:00:00 Completed [facility] Pneumococcal 20 Conjugate, PCV20 (Prevnar 20) 2022-12-22 00:00:00 Completed [facility] Pneumococcal 20 Conjugate, PCV20 (Prevnar 20) 2022-12-22 00:00:00 Completed [facility] Pneumococcal 20 Conjugate, PCV20 (Prevnar 20) 2022-12-22 00:00:00 Completed [facility] Pneumococcal 20 Conjugate, PCV20 (Prevnar 20) 2022-12-22 00:00:00 Completed [facility] Pneumococcal 20 Conjugate, PCV20 (Prevnar 20) 2022-12-22 00:00:00 Completed [facility] Pneumococcal 20 Conjugate, PCV20 (Prevnar 20) 2022-12-22 00:00:00 Completed [facility] Pneumococcal 20 Conjugate, PCV20 (Prevnar 20) 2022-12-22 00:00:00 Completed [facility] Pneumococcal 20 Conjugate, PCV20 (Prevnar 20) 2022-12-22 00:00:00 Completed [facility] Pneumococcal 20 Conjugate, PCV20 (Prevnar 20) 2022-12-22 00:00:00 Completed [facility] Pneumococcal 20 Conjugate, PCV20 (Prevnar 20) 2022-12-22 00:00:00 Completed [facility] Pneumococcal 20 Conjugate, PCV20 (Prevnar 20) 2022-12-22 00:00:00 Completed [facility] Pneumococcal 20 Conjugate, PCV20 (Prevnar 20) 2022-12-22 00:00:00 Completed [facility] Pneumococcal 20 Conjugate, PCV20 (Prevnar 20) 2022-12-22 00:00:00 Completed [facility] Pneumococcal 20 Conjugate, PCV20 (Prevnar 20) 2022-12-22 00:00:00 Completed [facility] SARS-COV-2 COVID-19 PFIZER VACCINE 2021-04-23 00:00:00 Completed [facility] SARS-COV-2 COVID-19 PFIZER VACCINE 2021-04-23 00:00:00 Completed [facility] SARS-COV-2 COVID-19 PFIZER VACCINE 2021-04-23 00:00:00 Completed [facility] SARS-COV-2 COVID-19 PFIZER VACCINE 2021-04-23 00:00:00 Completed [facility] SARS-COV-2 COVID-19 PFIZER VACCINE 2021-04-23 00:00:00 Completed [facility] SARS-COV-2 COVID-19 PFIZER VACCINE 2021-04-23 00:00:00 Completed [facility] SARS-COV-2 COVID-19 PFIZER VACCINE 2021-04-23 00:00:00 Completed [facility] SARS-COV-2 COVID-19 PFIZER VACCINE 2021-04-23 00:00:00 Completed [facility] SARS-COV-2 COVID-19 PFIZER VACCINE 2021-04-23 00:00:00 Completed [facility] SARS-COV-2 COVID-19 PFIZER VACCINE 2021-04-23 00:00:00 Completed [facility] SARS-COV-2 COVID-19 PFIZER VACCINE 2021-04-23 00:00:00 Completed [facility] SARS-COV-2 COVID-19 PFIZER VACCINE 2021-04-23 00:00:00 Completed [facility] SARS-COV-2 COVID-19 PFIZER VACCINE 2021-04-23 00:00:00 Completed [facility] SARS-COV-2 COVID-19 PFIZER VACCINE 2021-04-23 00:00:00 Completed [facility] SARS-COV-2 COVID-19 PFIZER VACCINE 2021-04-23 00:00:00 Completed [facility] SARS-COV-2 COVID-19 PFIZER VACCINE 2021-04-23 00:00:00 Completed [facility] SARS-COV-2 COVID-19 PFIZER VACCINE 2021-04-23 00:00:00 Completed [facility] SARS-COV-2 COVID-19 PFIZER VACCINE 2021-04-23 00:00:00 Completed [facility] SARS-COV-2 COVID-19 PFIZER VACCINE 2021-04-23 00:00:00 Completed [facility] SARS-COV-2 COVID-19 PFIZER VACCINE 2021-04-23 00:00:00 Completed [facility] SARS-COV-2 COVID-19 PFIZER VACCINE 2021-04-23 00:00:00 Completed [facility] SARS-COV-2 COVID-19 PFIZER VACCINE 2021-04-23 00:00:00 Completed [facility] SARS-COV-2 COVID-19 PFIZER VACCINE 2021-04-23 00:00:00 Completed [facility] SARS-COV-2 COVID-19 PFIZER VACCINE 2021-04-23 00:00:00 Completed [facility] SARS-COV-2 COVID-19 PFIZER VACCINE 2021-04-23 00:00:00 Completed [facility] SARS-COV-2 COVID-19 PFIZER VACCINE 2021-04-23 00:00:00 Completed [facility] SARS-COV-2 COVID-19 PFIZER VACCINE 2021-04-23 00:00:00 Completed [facility] SARS-COV-2 COVID-19 PFIZER VACCINE 2021-04-23 00:00:00 Completed [facility] SARS-COV-2 COVID-19 PFIZER VACCINE 2021-04-23 00:00:00 Completed [facility] SARS-COV-2 COVID-19 PFIZER VACCINE 2021-04-23 00:00:00 Completed [facility] SARS-COV-2 COVID-19 PFIZER VACCINE 2021-04-23 00:00:00 Completed [facility] SARS-COV-2 COVID-19 PFIZER VACCINE 2021-04-23 00:00:00 Completed [facility] SARS-COV-2 COVID-19 PFIZER VACCINE 2021-04-23 00:00:00 Completed [facility] SARS-COV-2 COVID-19 PFIZER VACCINE 2021-04-23 00:00:00 Completed [facility] SARS-COV-2 COVID-19 PFIZER VACCINE 2021-04-23 00:00:00 Completed [facility] SARS-COV-2 COVID-19 PFIZER VACCINE 2021-04-23 00:00:00 Completed [facility] SARS-COV-2 COVID-19 PFIZER VACCINE 2021-04-23 00:00:00 Completed [facility] SARS-COV-2 COVID-19 PFIZER VACCINE 2021-04-23 00:00:00 Completed [facility] SARS-COV-2 COVID-19 PFIZER VACCINE 2021-04-23 00:00:00 Completed [facility] SARS-COV-2 COVID-19 PFIZER VACCINE 2021-04-23 00:00:00 Completed [facility] SARS-COV-2 COVID-19 PFIZER VACCINE 2021-04-23 00:00:00 Completed [facility] SARS-COV-2 COVID-19 PFIZER VACCINE 2021-04-23 00:00:00 Completed [facility] SARS-COV-2 COVID-19 PFIZER VACCINE 2021-04-23 00:00:00 Completed [facility] SARS-COV-2 COVID-19 PFIZER VACCINE 2021-04-23 00:00:00 Completed [facility] SARS-COV-2 COVID-19 PFIZER VACCINE 2021-04-23 00:00:00 Completed [facility] SARS-COV-2 COVID-19 PFIZER VACCINE 2021-04-23 00:00:00 Completed [facility] SARS-COV-2 COVID-19 PFIZER VACCINE 2021-04-23 00:00:00 Completed [facility] SARS-COV-2 COVID-19 PFIZER VACCINE 2021-04-23 00:00:00 Completed [facility] SARS-COV-2 COVID-19 PFIZER VACCINE 2021-04-23 00:00:00 Completed [facility] SARS-COV-2 COVID-19 PFIZER VACCINE 2021-04-23 00:00:00 Completed [facility] SARS-COV-2 COVID-19 PFIZER VACCINE 2021-04-23 00:00:00 Completed [facility] SARS-COV-2 COVID-19 PFIZER VACCINE 2021-04-23 00:00:00 Completed [facility] SARS-COV-2 COVID-19 PFIZER VACCINE 2021-04-23 00:00:00 Completed [facility] SARS-COV-2 COVID-19 PFIZER VACCINE 2021-04-23 00:00:00 Completed [facility] SARS-COV-2 COVID-19 PFIZER VACCINE 2021-04-23 00:00:00 Completed [facility] SARS-COV-2 COVID-19 PFIZER VACCINE 2021-04-23 00:00:00 Completed [facility] SARS-COV-2 COVID-19 PFIZER VACCINE 2021-04-23 00:00:00 Completed [facility] SARS-COV-2 COVID-19 PFIZER VACCINE 2021-04-23 00:00:00 Completed [facility] SARS-COV-2 COVID-19 PFIZER VACCINE 2021-04-23 00:00:00 Completed [facility] SARS-COV-2 COVID-19 PFIZER VACCINE 2021-04-23 00:00:00 Completed [facility] SARS-COV-2 COVID-19 PFIZER VACCINE 2021-04-23 00:00:00 Completed [facility] SARS-COV-2 COVID-19 PFIZER VACCINE 2021-04-23 00:00:00 Completed [facility] SARS-COV-2 COVID-19 PFIZER VACCINE 2021-04-23 00:00:00 Completed [facility] SARS-COV-2 COVID-19 PFIZER VACCINE 2021-04-23 00:00:00 Completed [facility] SARS-COV-2 COVID-19 PFIZER VACCINE 2021-04-23 00:00:00 Completed [facility] SARS-COV-2 COVID-19 PFIZER VACCINE 2021-04-23 00:00:00 Completed [facility] SARS-COV-2 COVID-19 PFIZER VACCINE 2021-04-23 00:00:00 Completed [facility] SARS-COV-2 COVID-19 PFIZER VACCINE 2021-04-23 00:00:00 Completed [facility] SARS-COV-2 COVID-19 PFIZER VACCINE 2021-04-23 00:00:00 Completed [facility] SARS-COV-2 COVID-19 PFIZER VACCINE 2021-04-23 00:00:00 Completed [facility] SARS-COV-2 COVID-19 PFIZER VACCINE 2021-04-23 00:00:00 Completed [facility] SARS-COV-2 COVID-19 PFIZER VACCINE 2021-04-23 00:00:00 Completed [facility] SARS-COV-2 COVID-19 PFIZER VACCINE 2021-04-23 00:00:00 Completed [facility] SARS-COV-2 COVID-19 PFIZER VACCINE 2021-04-23 00:00:00 Completed [facility] SARS-COV-2 COVID-19 PFIZER VACCINE 2021-04-23 00:00:00 Completed [facility] SARS-COV-2 COVID-19 PFIZER VACCINE 2021-04-23 00:00:00 Completed [facility] SARS-COV-2 COVID-19 PFIZER VACCINE 2021-04-23 00:00:00 Completed [facility] SARS-COV-2 COVID-19 PFIZER VACCINE 2021-04-23 00:00:00 Completed [facility] SARS-COV-2 COVID-19 PFIZER VACCINE 2021-04-23 00:00:00 Completed [facility] SARS-COV-2 COVID-19 PFIZER VACCINE 2021-04-23 00:00:00 Completed [facility] SARS-COV-2 COVID-19 PFIZER VACCINE 2021-04-23 00:00:00 Completed [facility] SARS-COV-2 COVID-19 PFIZER VACCINE 2021-04-23 00:00:00 Completed [facility] SARS-COV-2 COVID-19 PFIZER VACCINE 2021-04-23 00:00:00 Completed [facility] SARS-COV-2 COVID-19 PFIZER VACCINE 2021-04-23 00:00:00 Completed [facility] SARS-COV-2 COVID-19 PFIZER VACCINE 2021-04-23 00:00:00 Completed [facility] SARS-COV-2 COVID-19 PFIZER VACCINE 2021-04-23 00:00:00 Completed [facility] SARS-COV-2 COVID-19 PFIZER VACCINE 2021-04-23 00:00:00 Completed [facility] SARS-COV-2 COVID-19 PFIZER VACCINE 2021-04-23 00:00:00 Completed [facility] SARS-COV-2 COVID-19 PFIZER VACCINE 2021-04-23 00:00:00 Completed [facility] SARS-COV-2 COVID-19 PFIZER VACCINE 2021-04-23 00:00:00 Completed [facility] SARS-COV-2 COVID-19 PFIZER VACCINE 2021-04-23 00:00:00 Completed [facility] SARS-COV-2 COVID-19 PFIZER VACCINE 2021-04-23 00:00:00 Completed [facility] SARS-COV-2 COVID-19 PFIZER VACCINE 2021-04-23 00:00:00 Completed [facility] SARS-COV-2 COVID-19 PFIZER VACCINE 2021-04-23 00:00:00 Completed [facility] SARS-COV-2 COVID-19 PFIZER VACCINE 2021-04-23 00:00:00 Completed [facility] SARS-COV-2 COVID-19 PFIZER VACCINE 2021-04-23 00:00:00 Completed [facility] SARS-COV-2 COVID-19 PFIZER VACCINE 2021-04-23 00:00:00 Completed [facility] SARS-COV-2 COVID-19 PFIZER VACCINE 2021-04-23 00:00:00 Completed [facility] SARS-COV-2 COVID-19 PFIZER VACCINE 2021-04-23 00:00:00 Completed [facility] SARS-COV-2 COVID-19 PFIZER VACCINE 2021-04-23 00:00:00 Completed [facility] SARS-COV-2 COVID-19 PFIZER VACCINE 2021-04-23 00:00:00 Completed [facility] SARS-COV-2 COVID-19 PFIZER VACCINE 2021-04-23 00:00:00 Completed [facility] SARS-COV-2 COVID-19 PFIZER VACCINE 2021-04-23 00:00:00 Completed [facility] SARS-COV-2 COVID-19 PFIZER VACCINE 2021-04-23 00:00:00 Completed [facility] SARS-COV-2 COVID-19 PFIZER VACCINE 2021-04-23 00:00:00 Completed [facility] SARS-COV-2 COVID-19 PFIZER VACCINE 2021-04-23 00:00:00 Completed [facility] SARS-COV-2 COVID-19 PFIZER VACCINE 2021-04-23 00:00:00 Completed [facility] SARS-COV-2 COVID-19 PFIZER VACCINE 2021-04-23 00:00:00 Completed [facility] SARS-COV-2 COVID-19 PFIZER VACCINE 2021-04-23 00:00:00 Completed [facility] SARS-COV-2 COVID-19 PFIZER VACCINE 2021-04-23 00:00:00 Completed [facility] SARS-COV-2 COVID-19 PFIZER VACCINE 2021-04-23 00:00:00 Completed [facility] SARS-COV-2 COVID-19 PFIZER VACCINE 2021-04-23 00:00:00 Completed [facility] SARS-COV-2 COVID-19 PFIZER VACCINE 2021-04-23 00:00:00 Completed [facility] SARS-COV-2 COVID-19 PFIZER VACCINE 2021-04-23 00:00:00 Completed [facility] SARS-COV-2 COVID-19 PFIZER VACCINE 2021-04-23 00:00:00 Completed [facility] SARS-COV-2 COVID-19 PFIZER VACCINE 2021-04-23 00:00:00 Completed [facility] SARS-COV-2 COVID-19 PFIZER VACCINE 2021-04-23 00:00:00 Completed [facility] SARS-COV-2 COVID-19 PFIZER VACCINE 2021-04-23 00:00:00 Completed [facility] SARS-COV-2 COVID-19 PFIZER VACCINE 2021-04-23 00:00:00 Completed [facility] SARS-COV-2 COVID-19 PFIZER VACCINE 2021-04-23 00:00:00 Completed [facility] SARS-COV-2 COVID-19 PFIZER VACCINE 2021-04-23 00:00:00 Completed [facility] SARS-COV-2 COVID-19 PFIZER VACCINE 2021-04-23 00:00:00 Completed [facility] SARS-COV-2 COVID-19 PFIZER VACCINE 2021-04-23 00:00:00 Completed [facility] SARS-COV-2 COVID-19 PFIZER VACCINE 2021-04-23 00:00:00 Completed [facility] SARS-COV-2 COVID-19 PFIZER VACCINE 2021-04-23 00:00:00 Completed [facility] SARS-COV-2 COVID-19 PFIZER VACCINE 2021-04-23 00:00:00 Completed [facility] SARS-COV-2 COVID-19 PFIZER VACCINE 2021-04-23 00:00:00 Completed [facility] SARS-COV-2 COVID-19 PFIZER VACCINE 2021-04-23 00:00:00 Completed [facility] SARS-COV-2 COVID-19 PFIZER VACCINE 2021-04-23 00:00:00 Completed [facility] SARS-COV-2 COVID-19 PFIZER VACCINE 2021-04-23 00:00:00 Completed [facility] SARS-COV-2 COVID-19 PFIZER VACCINE 2021-04-23 00:00:00 Completed [facility] SARS-COV-2 COVID-19 PFIZER VACCINE 2021-04-23 00:00:00 Completed [facility] SARS-COV-2 COVID-19 PFIZER VACCINE 2021-04-23 00:00:00 Completed [facility] SARS-COV-2 COVID-19 PFIZER VACCINE 2021-04-23 00:00:00 Completed [facility] SARS-COV-2 COVID-19 PFIZER VACCINE 2021-04-23 00:00:00 Completed [facility] SARS-COV-2 COVID-19 PFIZER VACCINE 2021-04-23 00:00:00 Completed [facility] SARS-COV-2 COVID-19 PFIZER VACCINE 2021-04-23 00:00:00 Completed [facility] SARS-COV-2 COVID-19 PFIZER VACCINE 2021-04-23 00:00:00 Completed [facility] SARS-COV-2 COVID-19 PFIZER VACCINE 2021-04-23 00:00:00 Completed [facility] SARS-COV-2 COVID-19 PFIZER VACCINE 2021-04-23 00:00:00 Completed [facility] SARS-COV-2 COVID-19 PFIZER VACCINE 2021-04-23 00:00:00 Completed [facility] SARS-COV-2 COVID-19 PFIZER VACCINE 2021-04-23 00:00:00 Completed [facility] SARS-COV-2 COVID-19 PFIZER VACCINE 2021-04-23 00:00:00 Completed [facility] SARS-COV-2 COVID-19 PFIZER VACCINE 2021-04-23 00:00:00 Completed [facility] SARS-COV-2 COVID-19 PFIZER VACCINE 2021-04-23 00:00:00 Completed [facility] SARS-COV-2 COVID-19 PFIZER VACCINE 2021-04-23 00:00:00 Completed [facility] SARS-COV-2 COVID-19 PFIZER VACCINE 2021-04-23 00:00:00 Completed [facility] SARS-COV-2 COVID-19 PFIZER VACCINE 2021-04-23 00:00:00 Completed [facility] SARS-COV-2 COVID-19 PFIZER VACCINE 2021-04-23 00:00:00 Completed [facility] SARS-COV-2 COVID-19 PFIZER VACCINE 2021-04-23 00:00:00 Completed [facility] SARS-COV-2 COVID-19 PFIZER VACCINE 2021-04-23 00:00:00 Completed [facility] SARS-COV-2 COVID-19 PFIZER VACCINE 2021-04-23 00:00:00 Completed [facility] SARS-COV-2 COVID-19 PFIZER VACCINE 2021-04-23 00:00:00 Completed [facility] SARS-COV-2 COVID-19 PFIZER VACCINE 2020-06-26 00:00:00 Completed [facility] SARS-COV-2 COVID-19 PFIZER VACCINE 2020-06-26 00:00:00 Completed [facility] SARS-COV-2 COVID-19 PFIZER VACCINE 2020-06-26 00:00:00 Completed [facility] SARS-COV-2 COVID-19 PFIZER VACCINE 2020-06-26 00:00:00 Completed [facility] SARS-COV-2 COVID-19 PFIZER VACCINE 2020-06-26 00:00:00 Completed [facility] SARS-COV-2 COVID-19 PFIZER VACCINE 2020-06-26 00:00:00 Completed [facility] SARS-COV-2 COVID-19 PFIZER VACCINE 2020-06-26 00:00:00 Completed [facility] SARS-COV-2 COVID-19 PFIZER VACCINE 2020-06-26 00:00:00 Completed [facility] SARS-COV-2 COVID-19 PFIZER VACCINE 2020-06-26 00:00:00 Completed [facility] SARS-COV-2 COVID-19 PFIZER VACCINE 2020-06-26 00:00:00 Completed [facility] SARS-COV-2 COVID-19 PFIZER VACCINE 2020-06-26 00:00:00 Completed [facility] SARS-COV-2 COVID-19 PFIZER VACCINE 2020-06-26 00:00:00 Completed [facility] SARS-COV-2 COVID-19 PFIZER VACCINE 2020-06-26 00:00:00 Completed [facility] SARS-COV-2 COVID-19 PFIZER VACCINE 2020-06-26 00:00:00 Completed [facility] SARS-COV-2 COVID-19 PFIZER VACCINE 2020-06-26 00:00:00 Completed [facility] SARS-COV-2 COVID-19 PFIZER VACCINE 2020-06-26 00:00:00 Completed [facility] SARS-COV-2 COVID-19 PFIZER VACCINE 2020-06-26 00:00:00 Completed [facility] SARS-COV-2 COVID-19 PFIZER VACCINE 2020-06-26 00:00:00 Completed [facility] SARS-COV-2 COVID-19 PFIZER VACCINE 2020-06-26 00:00:00 Completed [facility] SARS-COV-2 COVID-19 PFIZER VACCINE 2020-06-26 00:00:00 Completed [facility] SARS-COV-2 COVID-19 PFIZER VACCINE 2020-06-26 00:00:00 Completed [facility] SARS-COV-2 COVID-19 PFIZER VACCINE 2020-06-26 00:00:00 Completed [facility] SARS-COV-2 COVID-19 PFIZER VACCINE 2020-06-26 00:00:00 Completed [facility] SARS-COV-2 COVID-19 PFIZER VACCINE 2020-06-26 00:00:00 Completed [facility] SARS-COV-2 COVID-19 PFIZER VACCINE 2020-06-26 00:00:00 Completed [facility] SARS-COV-2 COVID-19 PFIZER VACCINE 2020-06-26 00:00:00 Completed [facility] SARS-COV-2 COVID-19 PFIZER VACCINE 2020-06-26 00:00:00 Completed [facility] SARS-COV-2 COVID-19 PFIZER VACCINE 2020-06-26 00:00:00 Completed [facility] SARS-COV-2 COVID-19 PFIZER VACCINE 2020-06-26 00:00:00 Completed [facility] SARS-COV-2 COVID-19 PFIZER VACCINE 2020-06-26 00:00:00 Completed [facility] SARS-COV-2 COVID-19 PFIZER VACCINE 2020-06-26 00:00:00 Completed [facility] SARS-COV-2 COVID-19 PFIZER VACCINE 2020-06-26 00:00:00 Completed [facility] SARS-COV-2 COVID-19 PFIZER VACCINE 2020-06-26 00:00:00 Completed [facility] SARS-COV-2 COVID-19 PFIZER VACCINE 2020-06-26 00:00:00 Completed [facility] SARS-COV-2 COVID-19 PFIZER VACCINE 2020-06-26 00:00:00 Completed [facility] SARS-COV-2 COVID-19 PFIZER VACCINE 2020-06-26 00:00:00 Completed [facility] SARS-COV-2 COVID-19 PFIZER VACCINE 2020-06-26 00:00:00 Completed [facility] SARS-COV-2 COVID-19 PFIZER VACCINE 2020-06-26 00:00:00 Completed [facility] SARS-COV-2 COVID-19 PFIZER VACCINE 2020-06-26 00:00:00 Completed [facility] SARS-COV-2 COVID-19 PFIZER VACCINE 2020-06-26 00:00:00 Completed [facility] SARS-COV-2 COVID-19 PFIZER VACCINE 2020-06-26 00:00:00 Completed [facility] SARS-COV-2 COVID-19 PFIZER VACCINE 2020-06-26 00:00:00 Completed [facility] SARS-COV-2 COVID-19 PFIZER VACCINE 2020-06-26 00:00:00 Completed [facility] SARS-COV-2 COVID-19 PFIZER VACCINE 2020-06-26 00:00:00 Completed [facility] SARS-COV-2 COVID-19 PFIZER VACCINE 2020-06-26 00:00:00 Completed [facility] SARS-COV-2 COVID-19 PFIZER VACCINE 2020-06-26 00:00:00 Completed [facility] SARS-COV-2 COVID-19 PFIZER VACCINE 2020-06-26 00:00:00 Completed [facility] SARS-COV-2 COVID-19 PFIZER VACCINE 2020-06-26 00:00:00 Completed [facility] SARS-COV-2 COVID-19 PFIZER VACCINE 2020-06-26 00:00:00 Completed [facility] SARS-COV-2 COVID-19 PFIZER VACCINE 2020-06-26 00:00:00 Completed [facility] SARS-COV-2 COVID-19 PFIZER VACCINE 2020-06-26 00:00:00 Completed [facility] SARS-COV-2 COVID-19 PFIZER VACCINE 2020-06-26 00:00:00 Completed [facility] SARS-COV-2 COVID-19 PFIZER VACCINE 2020-06-26 00:00:00 Completed [facility] SARS-COV-2 COVID-19 PFIZER VACCINE 2020-06-26 00:00:00 Completed [facility] SARS-COV-2 COVID-19 PFIZER VACCINE 2020-06-26 00:00:00 Completed [facility] SARS-COV-2 COVID-19 PFIZER VACCINE 2020-06-26 00:00:00 Completed [facility] SARS-COV-2 COVID-19 PFIZER VACCINE 2020-06-26 00:00:00 Completed [facility] SARS-COV-2 COVID-19 PFIZER VACCINE 2020-06-26 00:00:00 Completed [facility] SARS-COV-2 COVID-19 PFIZER VACCINE 2020-06-26 00:00:00 Completed [facility] SARS-COV-2 COVID-19 PFIZER VACCINE 2020-06-26 00:00:00 Completed [facility] SARS-COV-2 COVID-19 PFIZER VACCINE 2020-06-26 00:00:00 Completed [facility] SARS-COV-2 COVID-19 PFIZER VACCINE 2020-06-26 00:00:00 Completed [facility] SARS-COV-2 COVID-19 PFIZER VACCINE 2020-06-26 00:00:00 Completed [facility] SARS-COV-2 COVID-19 PFIZER VACCINE 2020-06-26 00:00:00 Completed [facility] SARS-COV-2 COVID-19 PFIZER VACCINE 2020-06-26 00:00:00 Completed [facility] SARS-COV-2 COVID-19 PFIZER VACCINE 2020-06-26 00:00:00 Completed [facility] SARS-COV-2 COVID-19 PFIZER VACCINE 2020-06-26 00:00:00 Completed [facility] SARS-COV-2 COVID-19 PFIZER VACCINE 2020-06-26 00:00:00 Completed [facility] SARS-COV-2 COVID-19 PFIZER VACCINE 2020-06-26 00:00:00 Completed [facility] SARS-COV-2 COVID-19 PFIZER VACCINE 2020-06-26 00:00:00 Completed [facility] SARS-COV-2 COVID-19 PFIZER VACCINE 2020-06-26 00:00:00 Completed [facility] SARS-COV-2 COVID-19 PFIZER VACCINE 2020-06-26 00:00:00 Completed [facility] SARS-COV-2 COVID-19 PFIZER VACCINE 2020-06-26 00:00:00 Completed [facility] SARS-COV-2 COVID-19 PFIZER VACCINE 2020-06-26 00:00:00 Completed [facility] SARS-COV-2 COVID-19 PFIZER VACCINE 2020-06-26 00:00:00 Completed [facility] SARS-COV-2 COVID-19 PFIZER VACCINE 2020-06-26 00:00:00 Completed [facility] SARS-COV-2 COVID-19 PFIZER VACCINE 2020-06-26 00:00:00 Completed [facility] SARS-COV-2 COVID-19 PFIZER VACCINE 2020-06-26 00:00:00 Completed [facility] SARS-COV-2 COVID-19 PFIZER VACCINE 2020-06-26 00:00:00 Completed [facility] SARS-COV-2 COVID-19 PFIZER VACCINE 2020-06-26 00:00:00 Completed [facility] SARS-COV-2 COVID-19 PFIZER VACCINE 2020-06-26 00:00:00 Completed [facility] SARS-COV-2 COVID-19 PFIZER VACCINE 2020-06-26 00:00:00 Completed [facility] SARS-COV-2 COVID-19 PFIZER VACCINE 2020-06-26 00:00:00 Completed [facility] SARS-COV-2 COVID-19 PFIZER VACCINE 2020-06-26 00:00:00 Completed [facility] SARS-COV-2 COVID-19 PFIZER VACCINE 2020-06-26 00:00:00 Completed [facility] SARS-COV-2 COVID-19 PFIZER VACCINE 2020-06-26 00:00:00 Completed [facility] SARS-COV-2 COVID-19 PFIZER VACCINE 2020-06-26 00:00:00 Completed [facility] SARS-COV-2 COVID-19 PFIZER VACCINE 2020-06-26 00:00:00 Completed [facility] SARS-COV-2 COVID-19 PFIZER VACCINE 2020-06-26 00:00:00 Completed [facility] SARS-COV-2 COVID-19 PFIZER VACCINE 2020-06-26 00:00:00 Completed [facility] SARS-COV-2 COVID-19 PFIZER VACCINE 2020-06-26 00:00:00 Completed [facility] SARS-COV-2 COVID-19 PFIZER VACCINE 2020-06-26 00:00:00 Completed [facility] SARS-COV-2 COVID-19 PFIZER VACCINE 2020-06-26 00:00:00 Completed [facility] SARS-COV-2 COVID-19 PFIZER VACCINE 2020-06-26 00:00:00 Completed [facility] SARS-COV-2 COVID-19 PFIZER VACCINE 2020-06-26 00:00:00 Completed [facility] SARS-COV-2 COVID-19 PFIZER VACCINE 2020-06-26 00:00:00 Completed [facility] SARS-COV-2 COVID-19 PFIZER VACCINE 2020-06-26 00:00:00 Completed [facility] SARS-COV-2 COVID-19 PFIZER VACCINE 2020-06-26 00:00:00 Completed [facility] SARS-COV-2 COVID-19 PFIZER VACCINE 2020-06-26 00:00:00 Completed [facility] SARS-COV-2 COVID-19 PFIZER VACCINE 2020-06-26 00:00:00 Completed [facility] SARS-COV-2 COVID-19 PFIZER VACCINE 2020-06-26 00:00:00 Completed [facility] SARS-COV-2 COVID-19 PFIZER VACCINE 2020-06-26 00:00:00 Completed [facility] SARS-COV-2 COVID-19 PFIZER VACCINE 2020-06-26 00:00:00 Completed [facility] SARS-COV-2 COVID-19 PFIZER VACCINE 2020-06-26 00:00:00 Completed [facility] SARS-COV-2 COVID-19 PFIZER VACCINE 2020-06-26 00:00:00 Completed [facility] SARS-COV-2 COVID-19 PFIZER VACCINE 2020-06-26 00:00:00 Completed [facility] SARS-COV-2 COVID-19 PFIZER VACCINE 2020-06-26 00:00:00 Completed [facility] SARS-COV-2 COVID-19 PFIZER VACCINE 2020-06-26 00:00:00 Completed [facility] SARS-COV-2 COVID-19 PFIZER VACCINE 2020-06-26 00:00:00 Completed [facility] SARS-COV-2 COVID-19 PFIZER VACCINE 2020-06-26 00:00:00 Completed [facility] SARS-COV-2 COVID-19 PFIZER VACCINE 2020-06-26 00:00:00 Completed [facility] SARS-COV-2 COVID-19 PFIZER VACCINE 2020-06-26 00:00:00 Completed [facility] SARS-COV-2 COVID-19 PFIZER VACCINE 2020-06-26 00:00:00 Completed [facility] SARS-COV-2 COVID-19 PFIZER VACCINE 2020-06-26 00:00:00 Completed [facility] SARS-COV-2 COVID-19 PFIZER VACCINE 2020-06-26 00:00:00 Completed [facility] SARS-COV-2 COVID-19 PFIZER VACCINE 2020-06-26 00:00:00 Completed [facility] SARS-COV-2 COVID-19 PFIZER VACCINE 2020-06-26 00:00:00 Completed [facility] SARS-COV-2 COVID-19 PFIZER VACCINE 2020-06-26 00:00:00 Completed [facility] SARS-COV-2 COVID-19 PFIZER VACCINE 2020-06-26 00:00:00 Completed [facility] SARS-COV-2 COVID-19 PFIZER VACCINE 2020-06-26 00:00:00 Completed [facility] SARS-COV-2 COVID-19 PFIZER VACCINE 2020-06-26 00:00:00 Completed [facility] SARS-COV-2 COVID-19 PFIZER VACCINE 2020-06-26 00:00:00 Completed [facility] SARS-COV-2 COVID-19 PFIZER VACCINE 2020-06-26 00:00:00 Completed [facility] SARS-COV-2 COVID-19 PFIZER VACCINE 2020-06-26 00:00:00 Completed [facility] SARS-COV-2 COVID-19 PFIZER VACCINE 2020-06-26 00:00:00 Completed [facility] SARS-COV-2 COVID-19 PFIZER VACCINE 2020-06-26 00:00:00 Completed [facility] SARS-COV-2 COVID-19 PFIZER VACCINE 2020-06-26 00:00:00 Completed [facility] SARS-COV-2 COVID-19 PFIZER VACCINE 2020-06-26 00:00:00 Completed [facility] SARS-COV-2 COVID-19 PFIZER VACCINE 2020-06-26 00:00:00 Completed [facility] SARS-COV-2 COVID-19 PFIZER VACCINE 2020-06-26 00:00:00 Completed [facility] SARS-COV-2 COVID-19 PFIZER VACCINE 2020-06-26 00:00:00 Completed [facility] SARS-COV-2 COVID-19 PFIZER VACCINE 2020-06-26 00:00:00 Completed [facility] SARS-COV-2 COVID-19 PFIZER VACCINE 2020-06-26 00:00:00 Completed [facility] SARS-COV-2 COVID-19 PFIZER VACCINE 2020-06-26 00:00:00 Completed [facility] SARS-COV-2 COVID-19 PFIZER VACCINE 2020-06-26 00:00:00 Completed [facility] SARS-COV-2 COVID-19 PFIZER VACCINE 2020-06-26 00:00:00 Completed [facility] SARS-COV-2 COVID-19 PFIZER VACCINE 2020-06-26 00:00:00 Completed [facility] SARS-COV-2 COVID-19 PFIZER VACCINE 2020-06-26 00:00:00 Completed [facility] SARS-COV-2 COVID-19 PFIZER VACCINE 2020-06-26 00:00:00 Completed [facility] SARS-COV-2 COVID-19 PFIZER VACCINE 2020-06-26 00:00:00 Completed [facility] SARS-COV-2 COVID-19 PFIZER VACCINE 2020-06-26 00:00:00 Completed [facility] SARS-COV-2 COVID-19 PFIZER VACCINE 2020-06-26 00:00:00 Completed [facility] SARS-COV-2 COVID-19 PFIZER VACCINE 2020-06-26 00:00:00 Completed [facility] SARS-COV-2 COVID-19 PFIZER VACCINE 2020-06-26 00:00:00 Completed [facility] SARS-COV-2 COVID-19 PFIZER VACCINE 2020-06-26 00:00:00 Completed [facility] SARS-COV-2 COVID-19 PFIZER VACCINE 2020-06-26 00:00:00 Completed [facility] SARS-COV-2 COVID-19 PFIZER VACCINE 2020-06-26 00:00:00 Completed [facility] SARS-COV-2 COVID-19 PFIZER VACCINE 2020-06-26 00:00:00 Completed [facility] SARS-COV-2 COVID-19 PFIZER VACCINE 2020-06-26 00:00:00 Completed [facility] SARS-COV-2 COVID-19 PFIZER VACCINE 2020-06-26 00:00:00 Completed [facility] SARS-COV-2 COVID-19 PFIZER VACCINE 2020-06-26 00:00:00 Completed [facility] SARS-COV-2 COVID-19 PFIZER VACCINE 2020-06-26 00:00:00 Completed [facility] SARS-COV-2 COVID-19 PFIZER VACCINE 2020-06-26 00:00:00 Completed [facility] SARS-COV-2 COVID-19 PFIZER VACCINE 2020-05-28 00:00:00 Completed [facility] SARS-COV-2 COVID-19 PFIZER VACCINE 2020-05-28 00:00:00 Completed [facility] SARS-COV-2 COVID-19 PFIZER VACCINE 2020-05-28 00:00:00 Completed [facility] SARS-COV-2 COVID-19 PFIZER VACCINE 2020-05-28 00:00:00 Completed [facility] SARS-COV-2 COVID-19 PFIZER VACCINE 2020-05-28 00:00:00 Completed [facility] SARS-COV-2 COVID-19 PFIZER VACCINE 2020-05-28 00:00:00 Completed [facility] SARS-COV-2 COVID-19 PFIZER VACCINE 2020-05-28 00:00:00 Completed [facility] SARS-COV-2 COVID-19 PFIZER VACCINE 2020-05-28 00:00:00 Completed [facility] SARS-COV-2 COVID-19 PFIZER VACCINE 2020-05-28 00:00:00 Completed [facility] SARS-COV-2 COVID-19 PFIZER VACCINE 2020-05-28 00:00:00 Completed [facility] SARS-COV-2 COVID-19 PFIZER VACCINE 2020-05-28 00:00:00 Completed [facility] SARS-COV-2 COVID-19 PFIZER VACCINE 2020-05-28 00:00:00 Completed [facility] SARS-COV-2 COVID-19 PFIZER VACCINE 2020-05-28 00:00:00 Completed [facility] SARS-COV-2 COVID-19 PFIZER VACCINE 2020-05-28 00:00:00 Completed [facility] SARS-COV-2 COVID-19 PFIZER VACCINE 2020-05-28 00:00:00 Completed [facility] SARS-COV-2 COVID-19 PFIZER VACCINE 2020-05-28 00:00:00 Completed [facility] SARS-COV-2 COVID-19 PFIZER VACCINE 2020-05-28 00:00:00 Completed [facility] SARS-COV-2 COVID-19 PFIZER VACCINE 2020-05-28 00:00:00 Completed [facility] SARS-COV-2 COVID-19 PFIZER VACCINE 2020-05-28 00:00:00 Completed [facility] SARS-COV-2 COVID-19 PFIZER VACCINE 2020-05-28 00:00:00 Completed [facility] SARS-COV-2 COVID-19 PFIZER VACCINE 2020-05-28 00:00:00 Completed [facility] SARS-COV-2 COVID-19 PFIZER VACCINE 2020-05-28 00:00:00 Completed [facility] SARS-COV-2 COVID-19 PFIZER VACCINE 2020-05-28 00:00:00 Completed [facility] SARS-COV-2 COVID-19 PFIZER VACCINE 2020-05-28 00:00:00 Completed [facility] SARS-COV-2 COVID-19 PFIZER VACCINE 2020-05-28 00:00:00 Completed [facility] SARS-COV-2 COVID-19 PFIZER VACCINE 2020-05-28 00:00:00 Completed [facility] SARS-COV-2 COVID-19 PFIZER VACCINE 2020-05-28 00:00:00 Completed [facility] SARS-COV-2 COVID-19 PFIZER VACCINE 2020-05-28 00:00:00 Completed [facility] SARS-COV-2 COVID-19 PFIZER VACCINE 2020-05-28 00:00:00 Completed [facility] SARS-COV-2 COVID-19 PFIZER VACCINE 2020-05-28 00:00:00 Completed [facility] SARS-COV-2 COVID-19 PFIZER VACCINE 2020-05-28 00:00:00 Completed [facility] SARS-COV-2 COVID-19 PFIZER VACCINE 2020-05-28 00:00:00 Completed [facility] SARS-COV-2 COVID-19 PFIZER VACCINE 2020-05-28 00:00:00 Completed [facility] SARS-COV-2 COVID-19 PFIZER VACCINE 2020-05-28 00:00:00 Completed [facility] SARS-COV-2 COVID-19 PFIZER VACCINE 2020-05-28 00:00:00 Completed [facility] SARS-COV-2 COVID-19 PFIZER VACCINE 2020-05-28 00:00:00 Completed [facility] SARS-COV-2 COVID-19 PFIZER VACCINE 2020-05-28 00:00:00 Completed [facility] SARS-COV-2 COVID-19 PFIZER VACCINE 2020-05-28 00:00:00 Completed [facility] SARS-COV-2 COVID-19 PFIZER VACCINE 2020-05-28 00:00:00 Completed [facility] SARS-COV-2 COVID-19 PFIZER VACCINE 2020-05-28 00:00:00 Completed [facility] SARS-COV-2 COVID-19 PFIZER VACCINE 2020-05-28 00:00:00 Completed [facility] SARS-COV-2 COVID-19 PFIZER VACCINE 2020-05-28 00:00:00 Completed [facility] SARS-COV-2 COVID-19 PFIZER VACCINE 2020-05-28 00:00:00 Completed [facility] SARS-COV-2 COVID-19 PFIZER VACCINE 2020-05-28 00:00:00 Completed [facility] SARS-COV-2 COVID-19 PFIZER VACCINE 2020-05-28 00:00:00 Completed [facility] SARS-COV-2 COVID-19 PFIZER VACCINE 2020-05-28 00:00:00 Completed [facility] SARS-COV-2 COVID-19 PFIZER VACCINE 2020-05-28 00:00:00 Completed [facility] SARS-COV-2 COVID-19 PFIZER VACCINE 2020-05-28 00:00:00 Completed [facility] SARS-COV-2 COVID-19 PFIZER VACCINE 2020-05-28 00:00:00 Completed [facility] SARS-COV-2 COVID-19 PFIZER VACCINE 2020-05-28 00:00:00 Completed [facility] SARS-COV-2 COVID-19 PFIZER VACCINE 2020-05-28 00:00:00 Completed [facility] SARS-COV-2 COVID-19 PFIZER VACCINE 2020-05-28 00:00:00 Completed [facility] SARS-COV-2 COVID-19 PFIZER VACCINE 2020-05-28 00:00:00 Completed [facility] SARS-COV-2 COVID-19 PFIZER VACCINE 2020-05-28 00:00:00 Completed [facility] SARS-COV-2 COVID-19 PFIZER VACCINE 2020-05-28 00:00:00 Completed [facility] SARS-COV-2 COVID-19 PFIZER VACCINE 2020-05-28 00:00:00 Completed [facility] SARS-COV-2 COVID-19 PFIZER VACCINE 2020-05-28 00:00:00 Completed [facility] SARS-COV-2 COVID-19 PFIZER VACCINE 2020-05-28 00:00:00 Completed [facility] SARS-COV-2 COVID-19 PFIZER VACCINE 2020-05-28 00:00:00 Completed [facility] SARS-COV-2 COVID-19 PFIZER VACCINE 2020-05-28 00:00:00 Completed [facility] SARS-COV-2 COVID-19 PFIZER VACCINE 2020-05-28 00:00:00 Completed [facility] SARS-COV-2 COVID-19 PFIZER VACCINE 2020-05-28 00:00:00 Completed [facility] SARS-COV-2 COVID-19 PFIZER VACCINE 2020-05-28 00:00:00 Completed [facility] SARS-COV-2 COVID-19 PFIZER VACCINE 2020-05-28 00:00:00 Completed [facility] SARS-COV-2 COVID-19 PFIZER VACCINE 2020-05-28 00:00:00 Completed [facility] SARS-COV-2 COVID-19 PFIZER VACCINE 2020-05-28 00:00:00 Completed [facility] SARS-COV-2 COVID-19 PFIZER VACCINE 2020-05-28 00:00:00 Completed [facility] SARS-COV-2 COVID-19 PFIZER VACCINE 2020-05-28 00:00:00 Completed [facility] SARS-COV-2 COVID-19 PFIZER VACCINE 2020-05-28 00:00:00 Completed [facility] SARS-COV-2 COVID-19 PFIZER VACCINE 2020-05-28 00:00:00 Completed [facility] SARS-COV-2 COVID-19 PFIZER VACCINE 2020-05-28 00:00:00 Completed [facility] SARS-COV-2 COVID-19 PFIZER VACCINE 2020-05-28 00:00:00 Completed [facility] SARS-COV-2 COVID-19 PFIZER VACCINE 2020-05-28 00:00:00 Completed [facility] SARS-COV-2 COVID-19 PFIZER VACCINE 2020-05-28 00:00:00 Completed [facility] SARS-COV-2 COVID-19 PFIZER VACCINE 2020-05-28 00:00:00 Completed [facility] SARS-COV-2 COVID-19 PFIZER VACCINE 2020-05-28 00:00:00 Completed [facility] SARS-COV-2 COVID-19 PFIZER VACCINE 2020-05-28 00:00:00 Completed [facility] SARS-COV-2 COVID-19 PFIZER VACCINE 2020-05-28 00:00:00 Completed [facility] SARS-COV-2 COVID-19 PFIZER VACCINE 2020-05-28 00:00:00 Completed [facility] SARS-COV-2 COVID-19 PFIZER VACCINE 2020-05-28 00:00:00 Completed [facility] SARS-COV-2 COVID-19 PFIZER VACCINE 2020-05-28 00:00:00 Completed [facility] SARS-COV-2 COVID-19 PFIZER VACCINE 2020-05-28 00:00:00 Completed [facility] SARS-COV-2 COVID-19 PFIZER VACCINE 2020-05-28 00:00:00 Completed [facility] SARS-COV-2 COVID-19 PFIZER VACCINE 2020-05-28 00:00:00 Completed [facility] SARS-COV-2 COVID-19 PFIZER VACCINE 2020-05-28 00:00:00 Completed [facility] SARS-COV-2 COVID-19 PFIZER VACCINE 2020-05-28 00:00:00 Completed [facility] SARS-COV-2 COVID-19 PFIZER VACCINE 2020-05-28 00:00:00 Completed [facility] SARS-COV-2 COVID-19 PFIZER VACCINE 2020-05-28 00:00:00 Completed [facility] SARS-COV-2 COVID-19 PFIZER VACCINE 2020-05-28 00:00:00 Completed [facility] SARS-COV-2 COVID-19 PFIZER VACCINE 2020-05-28 00:00:00 Completed [facility] SARS-COV-2 COVID-19 PFIZER VACCINE 2020-05-28 00:00:00 Completed [facility] SARS-COV-2 COVID-19 PFIZER VACCINE 2020-05-28 00:00:00 Completed [facility] SARS-COV-2 COVID-19 PFIZER VACCINE 2020-05-28 00:00:00 Completed [facility] SARS-COV-2 COVID-19 PFIZER VACCINE 2020-05-28 00:00:00 Completed [facility] SARS-COV-2 COVID-19 PFIZER VACCINE 2020-05-28 00:00:00 Completed [facility] SARS-COV-2 COVID-19 PFIZER VACCINE 2020-05-28 00:00:00 Completed [facility] SARS-COV-2 COVID-19 PFIZER VACCINE 2020-05-28 00:00:00 Completed [facility] SARS-COV-2 COVID-19 PFIZER VACCINE 2020-05-28 00:00:00 Completed [facility] SARS-COV-2 COVID-19 PFIZER VACCINE 2020-05-28 00:00:00 Completed [facility] SARS-COV-2 COVID-19 PFIZER VACCINE 2020-05-28 00:00:00 Completed [facility] SARS-COV-2 COVID-19 PFIZER VACCINE 2020-05-28 00:00:00 Completed [facility] SARS-COV-2 COVID-19 PFIZER VACCINE 2020-05-28 00:00:00 Completed [facility] SARS-COV-2 COVID-19 PFIZER VACCINE 2020-05-28 00:00:00 Completed [facility] SARS-COV-2 COVID-19 PFIZER VACCINE 2020-05-28 00:00:00 Completed [facility] SARS-COV-2 COVID-19 PFIZER VACCINE 2020-05-28 00:00:00 Completed [facility] SARS-COV-2 COVID-19 PFIZER VACCINE 2020-05-28 00:00:00 Completed [facility] SARS-COV-2 COVID-19 PFIZER VACCINE 2020-05-28 00:00:00 Completed [facility] SARS-COV-2 COVID-19 PFIZER VACCINE 2020-05-28 00:00:00 Completed [facility] SARS-COV-2 COVID-19 PFIZER VACCINE 2020-05-28 00:00:00 Completed [facility] SARS-COV-2 COVID-19 PFIZER VACCINE 2020-05-28 00:00:00 Completed [facility] SARS-COV-2 COVID-19 PFIZER VACCINE 2020-05-28 00:00:00 Completed [facility] SARS-COV-2 COVID-19 PFIZER VACCINE 2020-05-28 00:00:00 Completed [facility] SARS-COV-2 COVID-19 PFIZER VACCINE 2020-05-28 00:00:00 Completed [facility] SARS-COV-2 COVID-19 PFIZER VACCINE 2020-05-28 00:00:00 Completed [facility] SARS-COV-2 COVID-19 PFIZER VACCINE 2020-05-28 00:00:00 Completed [facility] SARS-COV-2 COVID-19 PFIZER VACCINE 2020-05-28 00:00:00 Completed [facility] SARS-COV-2 COVID-19 PFIZER VACCINE 2020-05-28 00:00:00 Completed [facility] SARS-COV-2 COVID-19 PFIZER VACCINE 2020-05-28 00:00:00 Completed [facility] SARS-COV-2 COVID-19 PFIZER VACCINE 2020-05-28 00:00:00 Completed [facility] SARS-COV-2 COVID-19 PFIZER VACCINE 2020-05-28 00:00:00 Completed [facility] SARS-COV-2 COVID-19 PFIZER VACCINE 2020-05-28 00:00:00 Completed [facility] SARS-COV-2 COVID-19 PFIZER VACCINE 2020-05-28 00:00:00 Completed [facility] SARS-COV-2 COVID-19 PFIZER VACCINE 2020-05-28 00:00:00 Completed [facility] SARS-COV-2 COVID-19 PFIZER VACCINE 2020-05-28 00:00:00 Completed [facility] SARS-COV-2 COVID-19 PFIZER VACCINE 2020-05-28 00:00:00 Completed [facility] SARS-COV-2 COVID-19 PFIZER VACCINE 2020-05-28 00:00:00 Completed [facility] SARS-COV-2 COVID-19 PFIZER VACCINE 2020-05-28 00:00:00 Completed [facility] SARS-COV-2 COVID-19 PFIZER VACCINE 2020-05-28 00:00:00 Completed [facility] SARS-COV-2 COVID-19 PFIZER VACCINE 2020-05-28 00:00:00 Completed [facility] SARS-COV-2 COVID-19 PFIZER VACCINE 2020-05-28 00:00:00 Completed [facility] SARS-COV-2 COVID-19 PFIZER VACCINE 2020-05-28 00:00:00 Completed [facility] SARS-COV-2 COVID-19 PFIZER VACCINE 2020-05-28 00:00:00 Completed [facility] SARS-COV-2 COVID-19 PFIZER VACCINE 2020-05-28 00:00:00 Completed [facility] SARS-COV-2 COVID-19 PFIZER VACCINE 2020-05-28 00:00:00 Completed [facility] SARS-COV-2 COVID-19 PFIZER VACCINE 2020-05-28 00:00:00 Completed [facility] SARS-COV-2 COVID-19 PFIZER VACCINE 2020-05-28 00:00:00 Completed [facility] SARS-COV-2 COVID-19 PFIZER VACCINE 2020-05-28 00:00:00 Completed [facility] SARS-COV-2 COVID-19 PFIZER VACCINE 2020-05-28 00:00:00 Completed [facility] SARS-COV-2 COVID-19 PFIZER VACCINE 2020-05-28 00:00:00 Completed [facility] SARS-COV-2 COVID-19 PFIZER VACCINE 2020-05-28 00:00:00 Completed [facility] SARS-COV-2 COVID-19 PFIZER VACCINE 2020-05-28 00:00:00 Completed [facility] SARS-COV-2 COVID-19 PFIZER VACCINE 2020-05-28 00:00:00 Completed [facility] SARS-COV-2 COVID-19 PFIZER VACCINE 2020-05-28 00:00:00 Completed [facility] SARS-COV-2 COVID-19 PFIZER VACCINE 2020-05-28 00:00:00 Completed [facility] SARS-COV-2 COVID-19 PFIZER VACCINE 2020-05-28 00:00:00 Completed [facility] SARS-COV-2 COVID-19 PFIZER VACCINE 2020-05-28 00:00:00 Completed [facility] SARS-COV-2 COVID-19 PFIZER VACCINE 2020-05-28 00:00:00 Completed [facility] SARS-COV-2 COVID-19 PFIZER VACCINE 2020-05-28 00:00:00 Completed [facility] SARS-COV-2 COVID-19 PFIZER VACCINE 2020-05-28 00:00:00 Completed [facility] SARS-COV-2 COVID-19 PFIZER VACCINE 2020-05-28 00:00:00 Completed [facility] SARS-COV-2 COVID-19 PFIZER VACCINE 2020-05-28 00:00:00 Completed [facility] SARS-COV-2 COVID-19 PFIZER VACCINE 2020-05-28 00:00:00 Completed [facility] SARS-COV-2 COVID-19 PFIZER VACCINE 2020-05-28 00:00:00 Completed [facility] Influenza High Dose 2017-06-01 00:00:00 Completed [facility] Pneumococcal 13 Conjugate, PCV13 (Prevnar 13) 2017-06-01 00:00:00 Completed [facility] Influenza High Dose 2017-06-01 00:00:00 Completed [facility] Pneumococcal 13 Conjugate, PCV13 (Prevnar 13) 2017-06-01 00:00:00 Completed [facility] Influenza High Dose 2017-06-01 00:00:00 Completed [facility] Pneumococcal 13 Conjugate, PCV13 (Prevnar 13) 2017-06-01 00:00:00 Completed [facility] Influenza High Dose 2017-06-01 00:00:00 Completed [facility] Pneumococcal 13 Conjugate, PCV13 (Prevnar 13) 2017-06-01 00:00:00 Completed [facility] Influenza High Dose 2017-06-01 00:00:00 Completed [facility] Pneumococcal 13 Conjugate, PCV13 (Prevnar 13) 2017-06-01 00:00:00 Completed [facility] Influenza High Dose 2017-06-01 00:00:00 Completed [facility] Pneumococcal 13 Conjugate, PCV13 (Prevnar 13) 2017-06-01 00:00:00 Completed [facility] Influenza High Dose 2017-06-01 00:00:00 Completed [facility] Pneumococcal 13 Conjugate, PCV13 (Prevnar 13) 2017-06-01 00:00:00 Completed [facility] Influenza High Dose 2017-06-01 00:00:00 Completed [facility] Pneumococcal 13 Conjugate, PCV13 (Prevnar 13) 2017-06-01 00:00:00 Completed [facility] Influenza High Dose 2017-06-01 00:00:00 Completed [facility] Pneumococcal 13 Conjugate, PCV13 (Prevnar 13) 2017-06-01 00:00:00 Completed [facility] Influenza High Dose 2017-06-01 00:00:00 Completed [facility] Pneumococcal 13 Conjugate, PCV13 (Prevnar 13) 2017-06-01 00:00:00 Completed [facility] Influenza High Dose 2017-06-01 00:00:00 Completed [facility] Pneumococcal 13 Conjugate, PCV13 (Prevnar 13) 2017-06-01 00:00:00 Completed [facility] Influenza High Dose 2017-06-01 00:00:00 Completed [facility] Pneumococcal 13 Conjugate, PCV13 (Prevnar 13) 2017-06-01 00:00:00 Completed [facility] Influenza High Dose 2017-06-01 00:00:00 Completed [facility] Pneumococcal 13 Conjugate, PCV13 (Prevnar 13) 2017-06-01 00:00:00 Completed [facility] Influenza High Dose 2017-06-01 00:00:00 Completed [facility] Pneumococcal 13 Conjugate, PCV13 (Prevnar 13) 2017-06-01 00:00:00 Completed [facility] Influenza High Dose 2017-06-01 00:00:00 Completed [facility] Pneumococcal 13 Conjugate, PCV13 (Prevnar 13) 2017-06-01 00:00:00 Completed [facility] Influenza High Dose 2017-06-01 00:00:00 Completed [facility] Pneumococcal 13 Conjugate, PCV13 (Prevnar 13) 2017-06-01 00:00:00 Completed [facility] Influenza High Dose 2017-06-01 00:00:00 Completed [facility] Pneumococcal 13 Conjugate, PCV13 (Prevnar 13) 2017-06-01 00:00:00 Completed [facility] Influenza High Dose 2017-06-01 00:00:00 Completed [facility] Pneumococcal 13 Conjugate, PCV13 (Prevnar 13) 2017-06-01 00:00:00 Completed [facility] Influenza High Dose 2017-06-01 00:00:00 Completed [facility] Pneumococcal 13 Conjugate, PCV13 (Prevnar 13) 2017-06-01 00:00:00 Completed [facility] Influenza High Dose 2017-06-01 00:00:00 Completed [facility] Pneumococcal 13 Conjugate, PCV13 (Prevnar 13) 2017-06-01 00:00:00 Completed [facility] Influenza High Dose 2017-06-01 00:00:00 Completed [facility] Pneumococcal 13 Conjugate, PCV13 (Prevnar 13) 2017-06-01 00:00:00 Completed [facility] Influenza High Dose 2017-06-01 00:00:00 Completed [facility] Pneumococcal 13 Conjugate, PCV13 (Prevnar 13) 2017-06-01 00:00:00 Completed [facility] Influenza High Dose 2017-06-01 00:00:00 Completed [facility] Pneumococcal 13 Conjugate, PCV13 (Prevnar 13) 2017-06-01 00:00:00 Completed [facility] Influenza High Dose 2017-06-01 00:00:00 Completed [facility] Pneumococcal 13 Conjugate, PCV13 (Prevnar 13) 2017-06-01 00:00:00 Completed [facility] Influenza High Dose 2017-06-01 00:00:00 Completed [facility] Pneumococcal 13 Conjugate, PCV13 (Prevnar 13) 2017-06-01 00:00:00 Completed [facility] Influenza High Dose 2017-06-01 00:00:00 Completed [facility] Pneumococcal 13 Conjugate, PCV13 (Prevnar 13) 2017-06-01 00:00:00 Completed [facility] Influenza High Dose 2017-06-01 00:00:00 Completed [facility] Pneumococcal 13 Conjugate, PCV13 (Prevnar 13) 2017-06-01 00:00:00 Completed [facility] Influenza High Dose 2017-06-01 00:00:00 Completed [facility] Pneumococcal 13 Conjugate, PCV13 (Prevnar 13) 2017-06-01 00:00:00 Completed [facility] Influenza High Dose 2017-06-01 00:00:00 Completed [facility] Pneumococcal 13 Conjugate, PCV13 (Prevnar 13) 2017-06-01 00:00:00 Completed [facility] Influenza High Dose 2017-06-01 00:00:00 Completed [facility] Pneumococcal 13 Conjugate, PCV13 (Prevnar 13) 2017-06-01 00:00:00 Completed [facility] Influenza High Dose 2017-06-01 00:00:00 Completed [facility] Pneumococcal 13 Conjugate, PCV13 (Prevnar 13) 2017-06-01 00:00:00 Completed [facility] Influenza High Dose 2017-06-01 00:00:00 Completed [facility] Pneumococcal 13 Conjugate, PCV13 (Prevnar 13) 2017-06-01 00:00:00 Completed [facility] Influenza High Dose 2017-06-01 00:00:00 Completed [facility] Pneumococcal 13 Conjugate, PCV13 (Prevnar 13) 2017-06-01 00:00:00 Completed [facility] Influenza High Dose 2017-06-01 00:00:00 Completed [facility] Pneumococcal 13 Conjugate, PCV13 (Prevnar 13) 2017-06-01 00:00:00 Completed [facility] Influenza High Dose 2017-06-01 00:00:00 Completed [facility] Pneumococcal 13 Conjugate, PCV13 (Prevnar 13) 2017-06-01 00:00:00 Completed [facility] Influenza High Dose 2017-06-01 00:00:00 Completed [facility] Pneumococcal 13 Conjugate, PCV13 (Prevnar 13) 2017-06-01 00:00:00 Completed [facility] Influenza High Dose 2017-06-01 00:00:00 Completed [facility] Pneumococcal 13 Conjugate, PCV13 (Prevnar 13) 2017-06-01 00:00:00 Completed [facility] Influenza High Dose 2017-06-01 00:00:00 Completed [facility] Pneumococcal 13 Conjugate, PCV13 (Prevnar 13) 2017-06-01 00:00:00 Completed [facility] Influenza High Dose 2017-06-01 00:00:00 Completed [facility] Pneumococcal 13 Conjugate, PCV13 (Prevnar 13) 2017-06-01 00:00:00 Completed [facility] Influenza High Dose 2017-06-01 00:00:00 Completed [facility] Pneumococcal 13 Conjugate, PCV13 (Prevnar 13) 2017-06-01 00:00:00 Completed [facility] Influenza High Dose 2017-06-01 00:00:00 Completed [facility] Pneumococcal 13 Conjugate, PCV13 (Prevnar 13) 2017-06-01 00:00:00 Completed [facility] Influenza High Dose 2017-06-01 00:00:00 Completed [facility] Pneumococcal 13 Conjugate, PCV13 (Prevnar 13) 2017-06-01 00:00:00 Completed [facility] Influenza High Dose 2017-06-01 00:00:00 Completed [facility] Pneumococcal 13 Conjugate, PCV13 (Prevnar 13) 2017-06-01 00:00:00 Completed [facility] Influenza High Dose 2017-06-01 00:00:00 Completed [facility] Pneumococcal 13 Conjugate, PCV13 (Prevnar 13) 2017-06-01 00:00:00 Completed [facility] Influenza High Dose 2017-06-01 00:00:00 Completed [facility] Pneumococcal 13 Conjugate, PCV13 (Prevnar 13) 2017-06-01 00:00:00 Completed [facility] Influenza High Dose 2017-06-01 00:00:00 Completed [facility] Pneumococcal 13 Conjugate, PCV13 (Prevnar 13) 2017-06-01 00:00:00 Completed [facility] Influenza High Dose 2017-06-01 00:00:00 Completed [facility] Pneumococcal 13 Conjugate, PCV13 (Prevnar 13) 2017-06-01 00:00:00 Completed [facility] Influenza High Dose 2017-06-01 00:00:00 Completed [facility] Pneumococcal 13 Conjugate, PCV13 (Prevnar 13) 2017-06-01 00:00:00 Completed [facility] Influenza High Dose 2017-06-01 00:00:00 Completed [facility] Pneumococcal 13 Conjugate, PCV13 (Prevnar 13) 2017-06-01 00:00:00 Completed [facility] Influenza High Dose 2017-06-01 00:00:00 Completed [facility] Pneumococcal 13 Conjugate, PCV13 (Prevnar 13) 2017-06-01 00:00:00 Completed [facility] Influenza High Dose 2017-06-01 00:00:00 Completed [facility] Pneumococcal 13 Conjugate, PCV13 (Prevnar 13) 2017-06-01 00:00:00 Completed [facility] Influenza High Dose 2017-06-01 00:00:00 Completed [facility] Pneumococcal 13 Conjugate, PCV13 (Prevnar 13) 2017-06-01 00:00:00 Completed [facility] Influenza High Dose 2017-06-01 00:00:00 Completed [facility] Pneumococcal 13 Conjugate, PCV13 (Prevnar 13) 2017-06-01 00:00:00 Completed [facility] Influenza High Dose 2017-06-01 00:00:00 Completed [facility] Pneumococcal 13 Conjugate, PCV13 (Prevnar 13) 2017-06-01 00:00:00 Completed [facility] Influenza High Dose 2017-06-01 00:00:00 Completed [facility] Pneumococcal 13 Conjugate, PCV13 (Prevnar 13) 2017-06-01 00:00:00 Completed [facility] Influenza High Dose 2017-06-01 00:00:00 Completed [facility] Pneumococcal 13 Conjugate, PCV13 (Prevnar 13) 2017-06-01 00:00:00 Completed [facility] Influenza High Dose 2017-06-01 00:00:00 Completed [facility] Pneumococcal 13 Conjugate, PCV13 (Prevnar 13) 2017-06-01 00:00:00 Completed [facility] Influenza High Dose 2017-06-01 00:00:00 Completed [facility] Pneumococcal 13 Conjugate, PCV13 (Prevnar 13) 2017-06-01 00:00:00 Completed [facility] Influenza High Dose 2017-06-01 00:00:00 Completed [facility] Pneumococcal 13 Conjugate, PCV13 (Prevnar 13) 2017-06-01 00:00:00 Completed [facility] Influenza High Dose 2017-06-01 00:00:00 Completed [facility] Pneumococcal 13 Conjugate, PCV13 (Prevnar 13) 2017-06-01 00:00:00 Completed [facility] Influenza High Dose 2017-06-01 00:00:00 Completed [facility] Pneumococcal 13 Conjugate, PCV13 (Prevnar 13) 2017-06-01 00:00:00 Completed [facility] Influenza High Dose 2017-06-01 00:00:00 Completed [facility] Pneumococcal 13 Conjugate, PCV13 (Prevnar 13) 2017-06-01 00:00:00 Completed [facility] Influenza High Dose 2017-06-01 00:00:00 Completed [facility] Pneumococcal 13 Conjugate, PCV13 (Prevnar 13) 2017-06-01 00:00:00 Completed [facility] Influenza High Dose 2017-06-01 00:00:00 Completed [facility] Pneumococcal 13 Conjugate, PCV13 (Prevnar 13) 2017-06-01 00:00:00 Completed [facility] Influenza High Dose 2017-06-01 00:00:00 Completed [facility] Pneumococcal 13 Conjugate, PCV13 (Prevnar 13) 2017-06-01 00:00:00 Completed [facility] Influenza High Dose 2017-06-01 00:00:00 Completed [facility] Pneumococcal 13 Conjugate, PCV13 (Prevnar 13) 2017-06-01 00:00:00 Completed [facility] Influenza High Dose 2017-06-01 00:00:00 Completed [facility] Pneumococcal 13 Conjugate, PCV13 (Prevnar 13) 2017-06-01 00:00:00 Completed [facility] Influenza High Dose 2017-06-01 00:00:00 Completed [facility] Pneumococcal 13 Conjugate, PCV13 (Prevnar 13) 2017-06-01 00:00:00 Completed [facility] Influenza High Dose 2017-06-01 00:00:00 Completed [facility] Pneumococcal 13 Conjugate, PCV13 (Prevnar 13) 2017-06-01 00:00:00 Completed [facility] Influenza High Dose 2017-06-01 00:00:00 Completed [facility] Pneumococcal 13 Conjugate, PCV13 (Prevnar 13) 2017-06-01 00:00:00 Completed [facility] Influenza High Dose 2017-06-01 00:00:00 Completed [facility] Pneumococcal 13 Conjugate, PCV13 (Prevnar 13) 2017-06-01 00:00:00 Completed [facility] Influenza High Dose 2017-06-01 00:00:00 Completed [facility] Pneumococcal 13 Conjugate, PCV13 (Prevnar 13) 2017-06-01 00:00:00 Completed [facility] Influenza High Dose 2017-06-01 00:00:00 Completed [facility] Pneumococcal 13 Conjugate, PCV13 (Prevnar 13) 2017-06-01 00:00:00 Completed [facility] Influenza High Dose 2017-06-01 00:00:00 Completed [facility] Pneumococcal 13 Conjugate, PCV13 (Prevnar 13) 2017-06-01 00:00:00 Completed [facility] Influenza High Dose 2017-06-01 00:00:00 Completed [facility] Pneumococcal 13 Conjugate, PCV13 (Prevnar 13) 2017-06-01 00:00:00 Completed [facility] Influenza High Dose 2017-06-01 00:00:00 Completed [facility] Pneumococcal 13 Conjugate, PCV13 (Prevnar 13) 2017-06-01 00:00:00 Completed [facility] Influenza High Dose 2017-06-01 00:00:00 Completed [facility] Pneumococcal 13 Conjugate, PCV13 (Prevnar 13) 2017-06-01 00:00:00 Completed [facility] Influenza High Dose 2017-06-01 00:00:00 Completed [facility] Pneumococcal 13 Conjugate, PCV13 (Prevnar 13) 2017-06-01 00:00:00 Completed [facility] Influenza High Dose 2017-06-01 00:00:00 Completed [facility] Pneumococcal 13 Conjugate, PCV13 (Prevnar 13) 2017-06-01 00:00:00 Completed [facility] Influenza High Dose 2017-06-01 00:00:00 Completed [facility] Pneumococcal 13 Conjugate, PCV13 (Prevnar 13) 2017-06-01 00:00:00 Completed [facility] Influenza High Dose 2017-06-01 00:00:00 Completed [facility] Pneumococcal 13 Conjugate, PCV13 (Prevnar 13) 2017-06-01 00:00:00 Completed [facility] Influenza High Dose 2017-06-01 00:00:00 Completed [facility] Pneumococcal 13 Conjugate, PCV13 (Prevnar 13) 2017-06-01 00:00:00 Completed [facility] Influenza High Dose 2017-06-01 00:00:00 Completed [facility] Pneumococcal 13 Conjugate, PCV13 (Prevnar 13) 2017-06-01 00:00:00 Completed [facility] Influenza High Dose 2017-06-01 00:00:00 Completed [facility] Pneumococcal 13 Conjugate, PCV13 (Prevnar 13) 2017-06-01 00:00:00 Completed [facility] Influenza High Dose 2017-06-01 00:00:00 Completed [facility] Pneumococcal 13 Conjugate, PCV13 (Prevnar 13) 2017-06-01 00:00:00 Completed [facility] Influenza High Dose 2017-06-01 00:00:00 Completed [facility] Pneumococcal 13 Conjugate, PCV13 (Prevnar 13) 2017-06-01 00:00:00 Completed [facility] Influenza High Dose 2017-06-01 00:00:00 Completed [facility] Pneumococcal 13 Conjugate, PCV13 (Prevnar 13) 2017-06-01 00:00:00 Completed [facility] Influenza High Dose 2017-06-01 00:00:00 Completed [facility] Pneumococcal 13 Conjugate, PCV13 (Prevnar 13) 2017-06-01 00:00:00 Completed [facility] Influenza High Dose 2017-06-01 00:00:00 Completed [facility] Pneumococcal 13 Conjugate, PCV13 (Prevnar 13) 2017-06-01 00:00:00 Completed [facility] Influenza High Dose 2017-06-01 00:00:00 Completed [facility] Pneumococcal 13 Conjugate, PCV13 (Prevnar 13) 2017-06-01 00:00:00 Completed [facility] Influenza High Dose 2017-06-01 00:00:00 Completed [facility] Pneumococcal 13 Conjugate, PCV13 (Prevnar 13) 2017-06-01 00:00:00 Completed [facility] Influenza High Dose 2017-06-01 00:00:00 Completed [facility] Pneumococcal 13 Conjugate, PCV13 (Prevnar 13) 2017-06-01 00:00:00 Completed [facility] Influenza High Dose 2017-06-01 00:00:00 Completed [facility] Pneumococcal 13 Conjugate, PCV13 (Prevnar 13) 2017-06-01 00:00:00 Completed [facility] Influenza High Dose 2017-06-01 00:00:00 Completed [facility] Pneumococcal 13 Conjugate, PCV13 (Prevnar 13) 2017-06-01 00:00:00 Completed [facility] Influenza High Dose 2017-06-01 00:00:00 Completed [facility] Pneumococcal 13 Conjugate, PCV13 (Prevnar 13) 2017-06-01 00:00:00 Completed [facility] Influenza High Dose 2017-06-01 00:00:00 Completed [facility] Pneumococcal 13 Conjugate, PCV13 (Prevnar 13) 2017-06-01 00:00:00 Completed [facility] Influenza High Dose 2017-06-01 00:00:00 Completed [facility] Pneumococcal 13 Conjugate, PCV13 (Prevnar 13) 2017-06-01 00:00:00 Completed [facility] Influenza High Dose 2017-06-01 00:00:00 Completed [facility] Pneumococcal 13 Conjugate, PCV13 (Prevnar 13) 2017-06-01 00:00:00 Completed [facility] Influenza High Dose 2017-06-01 00:00:00 Completed [facility] Pneumococcal 13 Conjugate, PCV13 (Prevnar 13) 2017-06-01 00:00:00 Completed [facility] Influenza High Dose 2017-06-01 00:00:00 Completed [facility] Pneumococcal 13 Conjugate, PCV13 (Prevnar 13) 2017-06-01 00:00:00 Completed [facility] Influenza High Dose 2017-06-01 00:00:00 Completed [facility] Pneumococcal 13 Conjugate, PCV13 (Prevnar 13) 2017-06-01 00:00:00 Completed [facility] Influenza High Dose 2017-06-01 00:00:00 Completed [facility] Pneumococcal 13 Conjugate, PCV13 (Prevnar 13) 2017-06-01 00:00:00 Completed [facility] Influenza High Dose 2017-06-01 00:00:00 Completed [facility] Pneumococcal 13 Conjugate, PCV13 (Prevnar 13) 2017-06-01 00:00:00 Completed [facility] Influenza High Dose 2017-06-01 00:00:00 Completed [facility] Pneumococcal 13 Conjugate, PCV13 (Prevnar 13) 2017-06-01 00:00:00 Completed [facility] Influenza High Dose 2017-06-01 00:00:00 Completed [facility] Pneumococcal 13 Conjugate, PCV13 (Prevnar 13) 2017-06-01 00:00:00 Completed [facility] Influenza High Dose 2017-06-01 00:00:00 Completed [facility] Pneumococcal 13 Conjugate, PCV13 (Prevnar 13) 2017-06-01 00:00:00 Completed [facility] Influenza High Dose 2017-06-01 00:00:00 Completed [facility] Pneumococcal 13 Conjugate, PCV13 (Prevnar 13) 2017-06-01 00:00:00 Completed [facility] Influenza High Dose 2017-06-01 00:00:00 Completed [facility] Pneumococcal 13 Conjugate, PCV13 (Prevnar 13) 2017-06-01 00:00:00 Completed [facility] Influenza High Dose 2017-06-01 00:00:00 Completed [facility] Pneumococcal 13 Conjugate, PCV13 (Prevnar 13) 2017-06-01 00:00:00 Completed [facility] Influenza High Dose 2017-06-01 00:00:00 Completed [facility] Pneumococcal 13 Conjugate, PCV13 (Prevnar 13) 2017-06-01 00:00:00 Completed [facility] Influenza High Dose 2017-06-01 00:00:00 Completed [facility] Pneumococcal 13 Conjugate, PCV13 (Prevnar 13) 2017-06-01 00:00:00 Completed [facility] Influenza High Dose 2017-06-01 00:00:00 Completed [facility] Pneumococcal 13 Conjugate, PCV13 (Prevnar 13) 2017-06-01 00:00:00 Completed [facility] Influenza High Dose 2017-06-01 00:00:00 Completed [facility] Pneumococcal 13 Conjugate, PCV13 (Prevnar 13) 2017-06-01 00:00:00 [facility] [facility] 2017[facility]-01 00:00:00 Completed [facility] Pneumococcal 13 Conjugate, PCV13 (Prevnar 13) 2017-06-01 00:00:00 Completed [facility] Influenza High Dose 2017-06-01 00:00:00 Completed [facility] Pneumococcal 13 Conjugate, PCV13 (Prevnar 13) 2017-06-01 00:00:00 Completed [facility] Influenza High Dose 2017-06-01 00:00:00 Completed [facility] Pneumococcal 13 Conjugate, PCV13 (Prevnar 13) 2017-06-01 00:00:00 Completed [facility] Influenza High Dose 2017-06-01 00:00:00 Completed [facility] Pneumococcal 13 Conjugate, PCV13 (Prevnar 13) 2017-06-01 00:00:00 Completed [facility] Influenza High Dose 2017-06-01 00:00:00 Completed [facility] Pneumococcal 13 Conjugate, PCV13 (Prevnar 13) 2017-06-01 00:00:00 Completed [facility] Influenza High Dose 2017-06-01 00:00:00 Completed [facility] Pneumococcal 13 Conjugate, PCV13 (Prevnar 13) 2017-06-01 00:00:00 Completed [facility] Influenza High Dose 2017-06-01 00:00:00 Completed [facility] Pneumococcal 13 Conjugate, PCV13 (Prevnar 13) 2017-06-01 00:00:00 Completed [facility] Influenza High Dose 2017-06-01 00:00:00 Completed [facility] Pneumococcal 13 Conjugate, PCV13 (Prevnar 13) 2017-06-01 00:00:00 Completed [facility] Influenza High Dose 2017-06-01 00:00:00 Completed [facility] Pneumococcal 13 Conjugate, PCV13 (Prevnar 13) 2017-06-01 00:00:00 Completed [facility] Influenza High Dose 2017-06-01 00:00:00 Completed [facility] Pneumococcal 13 Conjugate, PCV13 (Prevnar 13) 2017-06-01 00:00:00 Completed [facility] Influenza High Dose 2017-06-01 00:00:00 Completed [facility] Pneumococcal 13 Conjugate, PCV13 (Prevnar 13) 2017-06-01 00:00:00 Completed [facility] Influenza High Dose 2017-06-01 00:00:00 Completed [facility] Pneumococcal 13 Conjugate, PCV13 (Prevnar 13) 2017-06-01 00:00:00 Completed [facility] Influenza High Dose 2017-06-01 00:00:00 Completed [facility] Pneumococcal 13 Conjugate, PCV13 (Prevnar 13) 2017-06-01 00:00:00 Completed [facility] Influenza High Dose 2017-06-01 00:00:00 Completed [facility] Pneumococcal 13 Conjugate, PCV13 (Prevnar 13) 2017-06-01 00:00:00 Completed [facility] Influenza High Dose 2017-06-01 00:00:00 Completed [facility] Pneumococcal 13 Conjugate, PCV13 (Prevnar 13) 2017-06-01 00:00:00 Completed [facility] Influenza High Dose 2017-06-01 00:00:00 Completed [facility] Pneumococcal 13 Conjugate, PCV13 (Prevnar 13) 2017-06-01 00:00:00 Completed [facility] Influenza High Dose 2017-06-01 00:00:00 Completed [facility] Pneumococcal 13 Conjugate, PCV13 (Prevnar 13) 2017-06-01 00:00:00 Completed [facility] Influenza High Dose 2017-06-01 00:00:00 Completed [facility] Pneumococcal 13 Conjugate, PCV13 (Prevnar 13) 2017-06-01 00:00:00 Completed [facility] Influenza High Dose 2017-06-01 00:00:00 Completed [facility] Pneumococcal 13 Conjugate, PCV13 (Prevnar 13) 2017-06-01 00:00:00 Completed [facility] Influenza High Dose 2017-06-01 00:00:00 Completed [facility] Pneumococcal 13 Conjugate, PCV13 (Prevnar 13) 2017-06-01 00:00:00 Completed [facility] Influenza High Dose 2017-06-01 00:00:00 Completed [facility] Pneumococcal 13 Conjugate, PCV13 (Prevnar 13) 2017-06-01 00:00:00 Completed [facility] Influenza High Dose 2017-06-01 00:00:00 Completed [facility] Pneumococcal 13 Conjugate, PCV13 (Prevnar 13) 2017-06-01 00:00:00 Completed [facility] Influenza High Dose 2017-06-01 00:00:00 Completed [facility] Pneumococcal 13 Conjugate, PCV13 (Prevnar 13) 2017-06-01 00:00:00 Completed [facility] Influenza High Dose 2017-06-01 00:00:00 Completed [facility] Pneumococcal 13 Conjugate, PCV13 (Prevnar 13) 2017-06-01 00:00:00 Completed [facility] Influenza High Dose 2017-06-01 00:00:00 Completed [facility] Pneumococcal 13 Conjugate, PCV13 (Prevnar 13) 2017-06-01 00:00:00 Completed [facility] Influenza High Dose 2017-06-01 00:00:00 Completed [facility] Pneumococcal 13 Conjugate, PCV13 (Prevnar 13) 2017-06-01 00:00:00 Completed [facility] Influenza High Dose 2017-06-01 00:00:00 Completed [facility] Pneumococcal 13 Conjugate, PCV13 (Prevnar 13) 2017-06-01 00:00:00 Completed [facility] Influenza High Dose 2017-06-01 00:00:00 Completed [facility] Pneumococcal 13 Conjugate, PCV13 (Prevnar 13) 2017-06-01 00:00:00 Completed [facility] Influenza High Dose 2017-06-01 00:00:00 Completed [facility] Pneumococcal 13 Conjugate, PCV13 (Prevnar 13) 2017-06-01 00:00:00 Completed [facility] Influenza High Dose 2017-06-01 00:00:00 Completed [facility] Pneumococcal 13 Conjugate, PCV13 (Prevnar 13) 2017-06-01 00:00:00 Completed [facility] Influenza High Dose 2017-06-01 00:00:00 Completed [facility] Pneumococcal 13 Conjugate, PCV13 (Prevnar 13) 2017-06-01 00:00:00 Completed [facility] Influenza High Dose 2017-06-01 00:00:00 Completed [facility] Pneumococcal 13 Conjugate, PCV13 (Prevnar 13) 2017-06-01 00:00:00 Completed [facility] Influenza High Dose 2017-06-01 00:00:00 Completed [facility] Pneumococcal 13 Conjugate, PCV13 (Prevnar 13) 2017-06-01 00:00:00 Completed [facility] Influenza High Dose 2017-06-01 00:00:00 Completed [facility] Pneumococcal 13 Conjugate, PCV13 (Prevnar 13) 2017-06-01 00:00:00 Completed [facility] Influenza High Dose 2017-06-01 00:00:00 Completed [facility] Pneumococcal 13 Conjugate, PCV13 (Prevnar 13) 2017-06-01 00:00:00 Completed [facility] Influenza High Dose 2017-06-01 00:00:00 Completed [facility] Pneumococcal 13 Conjugate, PCV13 (Prevnar 13) 2017-06-01 00:00:00 Completed [facility] Influenza High Dose 2017-06-01 00:00:00 Completed [facility] Pneumococcal 13 Conjugate, PCV13 (Prevnar 13) 2017-06-01 00:00:00 Completed [facility] Influenza High Dose 2017-06-01 00:00:00 Completed [facility] Pneumococcal 13 Conjugate, PCV13 (Prevnar 13) 2017-06-01 00:00:00 Completed [facility] Influenza High Dose 2017-06-01 00:00:00 Completed [facility] Pneumococcal 13 Conjugate, PCV13 (Prevnar 13) 2017-06-01 00:00:00 Completed [facility] Influenza High Dose 2017-06-01 00:00:00 Completed [facility] Pneumococcal 13 Conjugate, PCV13 (Prevnar 13) 2017-06-01 00:00:00 Completed [facility] Influenza High Dose Unknown Completed [facility] Pneumococcal 13 Conjugate, PCV13 (Prevnar 13) Unknown Completed [facility] SARS-COV-2 COVID-19 PFIZER VACCINE Unknown Completed [facility] SARS-COV-2 COVID-19 PFIZER VACCINE Unknown Completed [facility] SARS-COV-2 COVID-19 PFIZER VACCINE Unknown Completed [facility] Pneumococcal 20 Conjugate, PCV20 (Prevnar 20) Unknown Completed [facility] Influenza High Dose Unknown Completed [facility] Pneumococcal 13 Conjugate, PCV13 (Prevnar 13) Unknown Completed [facility] SARS-COV-2 COVID-19 PFIZER VACCINE Unknown Completed [facility] SARS-COV-2 COVID-19 PFIZER VACCINE Unknown Completed [facility] SARS-COV-2 COVID-19 PFIZER VACCINE Unknown Completed [facility] Pneumococcal 20 Conjugate, PCV20 (Prevnar 20) Unknown Completed [facility] Influenza High Dose Unknown Completed [facility] Pneumococcal 13 Conjugate, PCV13 (Prevnar 13) Unknown Completed [facility] SARS-COV-2 COVID-19 PFIZER VACCINE Unknown Completed [facility] SARS-COV-2 COVID-19 PFIZER VACCINE Unknown Completed [facility] SARS-COV-2 COVID-19 PFIZER VACCINE Unknown Completed [facility] Pneumococcal 20 Conjugate, PCV20 (Prevnar 20) Unknown Completed [facility] Influenza High Dose Unknown Completed [facility] Pneumococcal 13 Conjugate, PCV13 (Prevnar 13) Unknown Completed [facility] SARS-COV-2 COVID-19 PFIZER VACCINE Unknown Completed [facility] SARS-COV-2 COVID-19 PFIZER VACCINE Unknown Completed [facility] SARS-COV-2 COVID-19 PFIZER VACCINE Unknown Completed [facility] Pneumococcal 20 Conjugate, PCV20 (Prevnar 20) Unknown Completed [facility] Influenza High Dose Unknown Completed [facility] Pneumococcal 13 Conjugate, PCV13 (Prevnar 13) Unknown Completed [facility] SARS-COV-2 COVID-19 PFIZER VACCINE Unknown Completed [facility] SARS-COV-2 COVID-19 PFIZER VACCINE Unknown Completed [facility] SARS-COV-2 COVID-19 PFIZER VACCINE Unknown Completed [facility] Pneumococcal 20 Conjugate, PCV20 (Prevnar 20) Unknown Completed [facility] Influenza High Dose Unknown Completed [facility] Pneumococcal 13 Conjugate, PCV13 (Prevnar 13) Unknown Completed [facility] SARS-COV-2 COVID-19 PFIZER VACCINE Unknown Completed [facility] SARS-COV-2 COVID-19 PFIZER VACCINE Unknown Completed [facility] SARS-COV-2 COVID-19 PFIZER VACCINE Unknown Completed [facility] Pneumococcal 20 Conjugate, PCV20 (Prevnar 20) Unknown Completed [facility] Influenza High Dose Unknown Completed [facility] Pneumococcal 13 Conjugate, PCV13 (Prevnar 13) Unknown Completed [facility] SARS-COV-2 COVID-19 PFIZER VACCINE Unknown Completed [facility] SARS-COV-2 COVID-19 PFIZER VACCINE Unknown Completed [facility] SARS-COV-2 COVID-19 PFIZER VACCINE Unknown Completed [facility] Pneumococcal 20 Conjugate, PCV20 (Prevnar 20) Unknown Completed [facility] Influenza High Dose Unknown Completed [facility] Pneumococcal 13 Conjugate, PCV13 (Prevnar 13) Unknown Completed [facility] SARS-COV-2 COVID-19 PFIZER VACCINE Unknown Completed [facility] SARS-COV-2 COVID-19 PFIZER VACCINE Unknown Completed [facility] SARS-COV-2 COVID-19 PFIZER VACCINE Unknown Completed [facility] Pneumococcal 20 Conjugate, PCV20 (Prevnar 20) Unknown Completed [facility] Influenza High Dose Unknown Completed [facility] Pneumococcal 13 Conjugate, PCV13 (Prevnar 13) Unknown Completed [facility] SARS-COV-2 COVID-19 PFIZER VACCINE Unknown Completed [facility] SARS-COV-2 COVID-19 PFIZER VACCINE Unknown Completed [facility] SARS-COV-2 COVID-19 PFIZER VACCINE Unknown Completed [facility] Pneumococcal 20 Conjugate, PCV20 (Prevnar 20) Unknown Completed [facility] Influenza High Dose Unknown Completed [facility] Pneumococcal 13 Conjugate, PCV13 (Prevnar 13) Unknown Completed [facility] SARS-COV-2 COVID-19 PFIZER VACCINE Unknown Completed [facility] SARS-COV-2 COVID-19 PFIZER VACCINE Unknown Completed [facility] SARS-COV-2 COVID-19 PFIZER VACCINE Unknown Completed [facility] Influenza High Dose Unknown Completed [facility] Pneumococcal 13 Conjugate, PCV13 (Prevnar 13) Unknown Completed [facility] SARS-COV-2 COVID-19 PFIZER VACCINE Unknown Completed [facility] SARS-COV-2 COVID-19 PFIZER VACCINE Unknown Completed [facility] SARS-COV-2 COVID-19 PFIZER VACCINE Unknown Completed [facility] Influenza High Dose Unknown Completed [facility] Pneumococcal 13 Conjugate, PCV13 (Prevnar 13) Unknown Completed [facility] SARS-COV-2 COVID-19 PFIZER VACCINE Unknown Completed [facility] SARS-COV-2 COVID-19 PFIZER VACCINE Unknown Completed [facility] SARS-COV-2 COVID-19 PFIZER VACCINE Unknown Completed [facility] Influenza High Dose Unknown Completed [facility] Pneumococcal 13 Conjugate, PCV13 (Prevnar 13) Unknown Completed [facility] SARS-COV-2 COVID-19 PFIZER VACCINE Unknown Completed [facility] SARS-COV-2 COVID-19 PFIZER VACCINE Unknown Completed [facility] SARS-COV-2 COVID-19 PFIZER VACCINE Unknown Completed [facility] Influenza High Dose Unknown Completed [facility] Pneumococcal 13 Conjugate, PCV13 (Prevnar 13) Unknown Completed [facility] SARS-COV-2 COVID-19 PFIZER VACCINE Unknown Completed [facility] SARS-COV-2 COVID-19 PFIZER VACCINE Unknown Completed [facility] SARS-COV-2 COVID-19 PFIZER VACCINE Unknown Completed [facility] Influenza High Dose Unknown Completed [facility] Pneumococcal 13 Conjugate, PCV13 (Prevnar 13) Unknown Completed [facility] SARS-COV-2 COVID-19 PFIZER VACCINE Unknown Completed [facility] SARS-COV-2 COVID-19 PFIZER VACCINE Unknown Completed [facility] SARS-COV-2 COVID-19 PFIZER VACCINE Unknown Completed [facility] Influenza High Dose Unknown Completed [facility] Pneumococcal 13 Conjugate, PCV13 (Prevnar 13) Unknown Completed [facility] SARS-COV-2 COVID-19 PFIZER VACCINE Unknown Completed [facility] SARS-COV-2 COVID-19 PFIZER VACCINE Unknown Completed [facility] SARS-COV-2 COVID-19 PFIZER VACCINE Unknown Completed [facility] Influenza High Dose Unknown Completed [facility] Pneumococcal 13 Conjugate, PCV13 (Prevnar 13) Unknown Completed [facility] SARS-COV-2 COVID-19 PFIZER VACCINE Unknown Completed [facility] SARS-COV-2 COVID-19 PFIZER VACCINE Unknown Completed [facility] SARS-COV-2 COVID-19 PFIZER VACCINE Unknown Completed [facility] Influenza High Dose Unknown Completed [facility] Pneumococcal 13 Conjugate, PCV13 (Prevnar 13) Unknown Completed [facility] SARS-COV-2 COVID-19 PFIZER VACCINE Unknown Completed [facility] SARS-COV-2 COVID-19 PFIZER VACCINE Unknown Completed [facility] SARS-COV-2 COVID-19 PFIZER VACCINE Unknown Completed [facility] Influenza High Dose Unknown Completed [facility] Pneumococcal 13 Conjugate, PCV13 (Prevnar 13) Unknown Completed [facility] SARS-COV-2 COVID-19 PFIZER VACCINE Unknown Completed [facility] SARS-COV-2 COVID-19 PFIZER VACCINE Unknown Completed [facility] SARS-COV-2 COVID-19 PFIZER VACCINE Unknown Completed [facility] Influenza High Dose Unknown Completed [facility] Pneumococcal 13 Conjugate, PCV13 (Prevnar 13) Unknown Completed [facility] SARS-COV-2 COVID-19 PFIZER VACCINE Unknown Completed [facility] SARS-COV-2 COVID-19 PFIZER VACCINE Unknown Completed [facility] SARS-COV-2 COVID-19 PFIZER VACCINE Unknown Completed [facility] Influenza High Dose Unknown Completed [facility] Pneumococcal 13 Conjugate, PCV13 (Prevnar 13) Unknown Completed [facility] SARS-COV-2 COVID-19 PFIZER VACCINE Unknown Completed [facility] SARS-COV-2 COVID-19 PFIZER VACCINE Unknown Completed [facility] SARS-COV-2 COVID-19 PFIZER VACCINE Unknown Completed [facility] Influenza High Dose Unknown Completed [facility] Pneumococcal 13 Conjugate, PCV13 (Prevnar 13) Unknown Completed [facility] SARS-COV-2 COVID-19 PFIZER VACCINE Unknown Completed [facility] SARS-COV-2 COVID-19 PFIZER VACCINE Unknown Completed [facility] SARS-COV-2 COVID-19 PFIZER VACCINE Unknown Completed [facility] Influenza High Dose Unknown Completed [facility] Pneumococcal 13 Conjugate, PCV13 (Prevnar 13) Unknown Completed [facility] SARS-COV-2 COVID-19 PFIZER VACCINE Unknown Completed [facility] SARS-COV-2 COVID-19 PFIZER VACCINE Unknown Completed [facility] SARS-COV-2 COVID-19 PFIZER VACCINE Unknown Completed [facility] Influenza High Dose Unknown Completed [facility] Pneumococcal 13 Conjugate, PCV13 (Prevnar 13) Unknown Completed [facility] SARS-COV-2 COVID-19 PFIZER VACCINE Unknown Completed [facility] SARS-COV-2 COVID-19 PFIZER VACCINE Unknown Completed [facility] Influenza High Dose Unknown Completed [facility] Pneumococcal 13 Conjugate, PCV13 (Prevnar 13) Unknown Completed [facility] SARS-COV-2 COVID-19 PFIZER VACCINE Unknown Completed [facility] SARS-COV-2 COVID-19 PFIZER VACCINE Unknown Completed [facility] Influenza High Dose Unknown Completed [facility] Pneumococcal 13 Conjugate, PCV13 (Prevnar 13) Unknown Completed [facility] SARS-COV-2 COVID-19 PFIZER VACCINE Unknown Completed [facility] SARS-COV-2 COVID-19 PFIZER VACCINE Unknown Completed [facility] Influenza High Dose Unknown Completed [facility] Pneumococcal 13 Conjugate, PCV13 (Prevnar 13) Unknown Completed [facility] SARS-COV-2 COVID-19 PFIZER VACCINE Unknown Completed [facility] SARS-COV-2 COVID-19 PFIZER VACCINE Unknown Completed [facility] Influenza High Dose Unknown Completed [facility] Pneumococcal 13 Conjugate, PCV13 (Prevnar 13) Unknown Completed [facility] SARS-COV-2 COVID-19 PFIZER VACCINE Unknown Completed [facility] SARS-COV-2 COVID-19 PFIZER VACCINE Unknown Completed [facility] Influenza High Dose Unknown Completed [facility] Pneumococcal 13 Conjugate, PCV13 (Prevnar 13) Unknown Completed [facility] SARS-COV-2 COVID-19 PFIZER VACCINE Unknown Completed [facility] SARS-COV-2 COVID-19 PFIZER VACCINE Unknown Completed [facility] Influenza High Dose Unknown Completed [facility] Pneumococcal 13 Conjugate, PCV13 (Prevnar 13) Unknown Completed [facility] SARS-COV-2 COVID-19 PFIZER VACCINE Unknown Completed [facility] SARS-COV-2 COVID-19 PFIZER VACCINE Unknown Completed [facility] Influenza High Dose Unknown Completed [facility] Pneumococcal 13 Conjugate, PCV13 (Prevnar 13) Unknown Completed [facility] SARS-COV-2 COVID-19 PFIZER VACCINE Unknown Completed [facility] SARS-COV-2 COVID-19 PFIZER VACCINE Unknown Completed [facility] Influenza High Dose Unknown Completed [facility] Pneumococcal 13 Conjugate, PCV13 (Prevnar 13) Unknown Completed [facility] SARS-COV-2 COVID-19 PFIZER VACCINE Unknown Completed [facility] SARS-COV-2 COVID-19 PFIZER VACCINE Unknown Completed [facility] Influenza High Dose Unknown Completed [facility] Pneumococcal 13 Conjugate, PCV13 (Prevnar 13) Unknown Completed [facility] SARS-COV-2 COVID-19 PFIZER VACCINE Unknown Completed [facility] Influenza High Dose Unknown Completed [facility] Pneumococcal 13 Conjugate, PCV13 (Prevnar 13) Unknown Completed [facility] Influenza High Dose Unknown Completed [facility] Pneumococcal 13 Conjugate, PCV13 (Prevnar 13) Unknown Completed [facility] Influenza High Dose Unknown Completed [facility] Pneumococcal 13 Conjugate, PCV13 (Prevnar 13) Unknown Completed [facility] Influenza High Dose Unknown Completed [facility] Pneumococcal 13 Conjugate, PCV13 (Prevnar 13) Unknown Completed [facility] Influenza High Dose Unknown Completed [facility] Pneumococcal 13 Conjugate, PCV13 (Prevnar 13) Unknown Completed [facility] Influenza High Dose Unknown Completed [facility] Pneumococcal 13 Conjugate, PCV13 (Prevnar 13) Unknown Completed [facility] Influenza High Dose Unknown Completed [facility] Pneumococcal 13 Conjugate, PCV13 (Prevnar 13) Unknown Completed [facility] Influenza High Dose Unknown Completed [facility] Pneumococcal 13 Conjugate, PCV13 (Prevnar 13) Unknown Completed [facility] Influenza High Dose Unknown Completed [facility] Pneumococcal 13 Conjugate, PCV13 (Prevnar 13) Unknown Completed [facility] SARS-COV-2 COVID-19 PFIZER VACCINE Unknown Completed [facility] SARS-COV-2 COVID-19 PFIZER VACCINE Unknown Completed [facility] SARS-COV-2 COVID-19 PFIZER VACCINE Unknown Completed [facility] Pneumococcal 20 Conjugate, PCV20 (Prevnar 20) Unknown Completed [facility] Influenza High Dose Unknown Completed [facility] Pneumococcal 13 Conjugate, PCV13 (Prevnar 13) Unknown Completed [facility] SARS-COV-2 COVID-19 PFIZER VACCINE Unknown Completed [facility] SARS-COV-2 COVID-19 PFIZER VACCINE Unknown Completed [facility] SARS-COV-2 COVID-19 PFIZER VACCINE Unknown Completed [facility] Pneumococcal 20 Conjugate, PCV20 (Prevnar 20) Unknown Completed [facility] Influenza High Dose Unknown Completed [facility] Pneumococcal 13 Conjugate, PCV13 (Prevnar 13) Unknown Completed [facility] SARS-COV-2 COVID-19 PFIZER VACCINE Unknown Completed [facility] SARS-COV-2 COVID-19 PFIZER VACCINE Unknown Completed [facility] SARS-COV-2 COVID-19 PFIZER VACCINE Unknown Completed [facility] Pneumococcal 20 Conjugate, PCV20 (Prevnar 20) Unknown Completed [facility] Influenza High Dose Unknown Completed [facility] Pneumococcal 13 Conjugate, PCV13 (Prevnar 13) Unknown Completed [facility] SARS-COV-2 COVID-19 PFIZER VACCINE Unknown Completed [facility] SARS-COV-2 COVID-19 PFIZER VACCINE Unknown Completed [facility] SARS-COV-2 COVID-19 PFIZER VACCINE Unknown Completed [facility] Pneumococcal 20 Conjugate, PCV20 (Prevnar 20) Unknown Completed [facility] Influenza High Dose Unknown Completed [facility] Pneumococcal 13 Conjugate, PCV13 (Prevnar 13) Unknown Completed [facility] SARS-COV-2 COVID-19 PFIZER VACCINE Unknown Completed [facility] SARS-COV-2 COVID-19 PFIZER VACCINE Unknown Completed [facility] SARS-COV-2 COVID-19 PFIZER VACCINE Unknown Completed [facility] Pneumococcal 20 Conjugate, PCV20 (Prevnar 20) Unknown Completed [facility] Influenza High Dose Unknown Completed [facility] Pneumococcal 13 Conjugate, PCV13 (Prevnar 13) Unknown Completed [facility] SARS-COV-2 COVID-19 PFIZER VACCINE Unknown Completed [facility] SARS-COV-2 COVID-19 PFIZER VACCINE Unknown Completed [facility] SARS-COV-2 COVID-19 PFIZER VACCINE Unknown Completed [facility] Pneumococcal 20 Conjugate, PCV20 (Prevnar 20) Unknown Completed [facility] Influenza High Dose Unknown Completed [facility] Pneumococcal 13 Conjugate, PCV13 (Prevnar 13) Unknown Completed [facility] SARS-COV-2 COVID-19 PFIZER VACCINE Unknown Completed [facility] SARS-COV-2 COVID-19 PFIZER VACCINE Unknown Completed [facility] SARS-COV-2 COVID-19 PFIZER VACCINE Unknown Completed [facility] Pneumococcal 20 Conjugate, PCV20 (Prevnar 20) Unknown Completed [facility] Influenza High Dose Unknown Completed [facility] Pneumococcal 13 Conjugate, PCV13 (Prevnar 13) Unknown Completed [facility] SARS-COV-2 COVID-19 PFIZER VACCINE Unknown Completed [facility] SARS-COV-2 COVID-19 PFIZER VACCINE Unknown Completed [facility] SARS-COV-2 COVID-19 PFIZER VACCINE Unknown Completed [facility] Pneumococcal 20 Conjugate, PCV20 (Prevnar 20) Unknown Completed [facility] Influenza High Dose Unknown Completed [facility] Pneumococcal 13 Conjugate, PCV13 (Prevnar 13) Unknown Completed [facility] SARS-COV-2 COVID-19 PFIZER VACCINE Unknown Completed [facility] SARS-COV-2 COVID-19 PFIZER VACCINE Unknown Completed [facility] SARS-COV-2 COVID-19 PFIZER VACCINE Unknown Completed [facility] Pneumococcal 20 Conjugate, PCV20 (Prevnar 20) Unknown Completed [facility] Influenza High Dose Unknown Completed [facility] Pneumococcal 13 Conjugate, PCV13 (Prevnar 13) Unknown Completed [facility] SARS-COV-2 COVID-19 PFIZER VACCINE Unknown Completed [facility] SARS-COV-2 COVID-19 PFIZER VACCINE Unknown Completed [facility] SARS-COV-2 COVID-19 PFIZER VACCINE Unknown Completed [facility] Pneumococcal 20 Conjugate, PCV20 (Prevnar 20) Unknown Completed [facility] Influenza High Dose Unknown Completed [facility] Pneumococcal 13 Conjugate, PCV13 (Prevnar 13) Unknown Completed [facility] SARS-COV-2 COVID-19 PFIZER VACCINE Unknown Completed [facility] SARS-COV-2 COVID-19 PFIZER VACCINE Unknown Completed [facility] SARS-COV-2 COVID-19 PFIZER VACCINE Unknown Completed [facility] Pneumococcal 20 Conjugate, PCV20 (Prevnar 20) Unknown Completed [facility] Influenza High Dose Unknown Completed [facility] Pneumococcal 13 Conjugate, PCV13 (Prevnar 13) Unknown Completed [facility] SARS-COV-2 COVID-19 PFIZER VACCINE Unknown Completed [facility] SARS-COV-2 COVID-19 PFIZER VACCINE Unknown Completed [facility] SARS-COV-2 COVID-19 PFIZER VACCINE Unknown Completed [facility] Pneumococcal 20 Conjugate, PCV20 (Prevnar 20) Unknown Completed [facility] Influenza High Dose Unknown Completed [facility] Pneumococcal 13 Conjugate, PCV13 (Prevnar 13) Unknown Completed [facility] SARS-COV-2 COVID-19 PFIZER VACCINE Unknown Completed [facility] SARS-COV-2 COVID-19 PFIZER VACCINE Unknown Completed [facility] SARS-COV-2 COVID-19 PFIZER VACCINE Unknown Completed [facility] Pneumococcal 20 Conjugate, PCV20 (Prevnar 20) Unknown Completed [facility] Influenza High Dose Unknown Completed [facility] Pneumococcal 13 Conjugate, PCV13 (Prevnar 13) Unknown Completed [facility] SARS-COV-2 COVID-19 PFIZER VACCINE Unknown Completed [facility] SARS-COV-2 COVID-19 PFIZER VACCINE Unknown Completed [facility] SARS-COV-2 COVID-19 PFIZER VACCINE Unknown Completed [facility] Pneumococcal 20 Conjugate, PCV20 (Prevnar 20) Unknown Completed [facility] Influenza High Dose Unknown Completed [facility] Pneumococcal 13 Conjugate, PCV13 (Prevnar 13) Unknown Completed [facility] SARS-COV-2 COVID-19 PFIZER VACCINE Unknown Completed [facility] SARS-COV-2 COVID-19 PFIZER VACCINE Unknown Completed [facility] SARS-COV-2 COVID-19 PFIZER VACCINE Unknown Completed [facility] Pneumococcal 20 Conjugate, PCV20 (Prevnar 20) Unknown Completed [facility] Influenza High Dose Unknown Completed [facility] Pneumococcal 13 Conjugate, PCV13 (Prevnar 13) Unknown Completed [facility] SARS-COV-2 COVID-19 PFIZER VACCINE Unknown Completed [facility] SARS-COV-2 COVID-19 PFIZER VACCINE Unknown Completed [facility] SARS-COV-2 COVID-19 PFIZER VACCINE Unknown Completed [facility] Pneumococcal 20 Conjugate, PCV20 (Prevnar 20) Unknown Completed [facility] Influenza High Dose Unknown Completed [facility] Pneumococcal 13 Conjugate, PCV13 (Prevnar 13) Unknown Completed [facility] SARS-COV-2 COVID-19 PFIZER VACCINE Unknown Completed [facility] SARS-COV-2 COVID-19 PFIZER VACCINE Unknown Completed [facility] SARS-COV-2 COVID-19 PFIZER VACCINE Unknown Completed [facility] Pneumococcal 20 Conjugate, PCV20 (Prevnar 20) Unknown Completed [facility] Influenza High Dose Unknown Completed [facility] Pneumococcal 13 Conjugate, PCV13 (Prevnar 13) Unknown Completed [facility] SARS-COV-2 COVID-19 PFIZER VACCINE Unknown Completed [facility] SARS-COV-2 COVID-19 PFIZER VACCINE Unknown Completed [facility] SARS-COV-2 COVID-19 PFIZER VACCINE Unknown Completed [facility] Pneumococcal 20 Conjugate, PCV20 (Prevnar 20) Unknown Completed [facility] Influenza High Dose Unknown Completed [facility] Pneumococcal 13 Conjugate, PCV13 (Prevnar 13) Unknown Completed [facility] SARS-COV-2 COVID-19 PFIZER VACCINE Unknown Completed [facility] SARS-COV-2 COVID-19 PFIZER VACCINE Unknown Completed [facility] SARS-COV-2 COVID-19 PFIZER VACCINE Unknown Completed [facility] Pneumococcal 20 Conjugate, PCV20 (Prevnar 20) Unknown Completed [facility] Influenza High Dose Unknown Completed [facility] Pneumococcal 13 Conjugate, PCV13 (Prevnar 13) Unknown Completed [facility] SARS-COV-2 COVID-19 PFIZER VACCINE Unknown Completed [facility] SARS-COV-2 COVID-19 PFIZER VACCINE Unknown Completed [facility] SARS-COV-2 COVID-19 PFIZER VACCINE Unknown Completed [facility] Pneumococcal 20 Conjugate, PCV20 (Prevnar 20) Unknown Completed [facility] Influenza High Dose Unknown Completed [facility] Pneumococcal 13 Conjugate, PCV13 (Prevnar 13) Unknown Completed [facility] SARS-COV-2 COVID-19 PFIZER VACCINE Unknown Completed [facility] SARS-COV-2 COVID-19 PFIZER VACCINE Unknown Completed [facility] SARS-COV-2 COVID-19 PFIZER VACCINE Unknown Completed [facility] Pneumococcal 20 Conjugate, PCV20 (Prevnar 20) Unknown Completed [facility] Influenza High Dose Unknown Completed [facility] Pneumococcal 13 Conjugate, PCV13 (Prevnar 13) Unknown Completed [facility] SARS-COV-2 COVID-19 PFIZER VACCINE Unknown Completed [facility] SARS-COV-2 COVID-19 PFIZER VACCINE Unknown Completed [facility] SARS-COV-2 COVID-19 PFIZER VACCINE Unknown Completed [facility] Pneumococcal 20 Conjugate, PCV20 (Prevnar 20) Unknown Completed [facility] Influenza High Dose Unknown Completed [facility] Pneumococcal 13 Conjugate, PCV13 (Prevnar 13) Unknown Completed [facility] SARS-COV-2 COVID-19 PFIZER VACCINE Unknown Completed [facility] SARS-COV-2 COVID-19 PFIZER VACCINE Unknown Completed [facility] SARS-COV-2 COVID-19 PFIZER VACCINE Unknown Completed [facility] Pneumococcal 20 Conjugate, PCV20 (Prevnar 20) Unknown Completed [facility] Influenza High Dose Unknown Completed [facility] Pneumococcal 13 Conjugate, PCV13 (Prevnar 13) Unknown Completed [facility] SARS-COV-2 COVID-19 PFIZER VACCINE Unknown Completed [facility] SARS-COV-2 COVID-19 PFIZER VACCINE Unknown Completed [facility] SARS-COV-2 COVID-19 PFIZER VACCINE Unknown Completed [facility] Pneumococcal 20 Conjugate, PCV20 (Prevnar 20) Unknown Completed [facility] Influenza High Dose Unknown Completed [facility] Pneumococcal 13 Conjugate, PCV13 (Prevnar 13) Unknown Completed [facility] SARS-COV-2 COVID-19 PFIZER VACCINE Unknown Completed [facility] SARS-COV-2 COVID-19 PFIZER VACCINE Unknown Completed [facility] SARS-COV-2 COVID-19 PFIZER VACCINE Unknown Completed [facility] Pneumococcal 20 Conjugate, PCV20 (Prevnar 20) Unknown Completed [facility] Influenza High Dose Unknown Completed [facility] Pneumococcal 13 Conjugate, PCV13 (Prevnar 13) Unknown Completed [facility] SARS-COV-2 COVID-19 PFIZER VACCINE Unknown Completed [facility] SARS-COV-2 COVID-19 PFIZER VACCINE Unknown Completed [facility] SARS-COV-2 COVID-19 PFIZER VACCINE Unknown Completed [facility] Pneumococcal 20 Conjugate, PCV20 (Prevnar 20) Unknown Completed [facility] Influenza Virus Vaccine,quad Im,preserve Free 65+ (FLUAD) Unknown Completed [facility] Influenza High Dose Unknown Completed [facility] Pneumococcal 13 Conjugate, PCV13 (Prevnar 13) Unknown Completed [facility] SARS-COV-2 COVID-19 PFIZER VACCINE Unknown Completed [facility] SARS-COV-2 COVID-19 PFIZER VACCINE Unknown Completed [facility] SARS-COV-2 COVID-19 PFIZER VACCINE Unknown Completed [facility] Pneumococcal 20 Conjugate, PCV20 (Prevnar 20) Unknown Completed [facility] Influenza Virus Vaccine,quad Im,preserve Free 65+ (FLUAD) Unknown Completed [facility] Influenza High Dose Unknown Completed [facility] Pneumococcal 13 Conjugate, PCV13 (Prevnar 13) Unknown Completed [facility] SARS-COV-2 COVID-19 PFIZER VACCINE Unknown Completed [facility] SARS-COV-2 COVID-19 PFIZER VACCINE Unknown Completed [facility] SARS-COV-2 COVID-19 PFIZER VACCINE Unknown Completed [facility] Pneumococcal 20 Conjugate, PCV20 (Prevnar 20) Unknown Completed [facility] Influenza Virus Vaccine,quad Im,preserve Free 65+ (FLUAD) Unknown Completed [facility] Influenza High Dose Unknown Completed [facility] Pneumococcal 13 Conjugate, PCV13 (Prevnar 13) Unknown Completed [facility] SARS-COV-2 COVID-19 PFIZER VACCINE Unknown Completed [facility] SARS-COV-2 COVID-19 PFIZER VACCINE Unknown Completed [facility] SARS-COV-2 COVID-19 PFIZER VACCINE Unknown Completed [facility] Pneumococcal 20 Conjugate, PCV20 (Prevnar 20) Unknown Completed [facility] Influenza Virus Vaccine,quad Im,preserve Free 65+ (FLUAD) Unknown Completed [facility] Influenza High Dose Unknown Completed [facility] Pneumococcal 13 Conjugate, PCV13 (Prevnar 13) Unknown Completed [facility] SARS-COV-2 COVID-19 PFIZER VACCINE Unknown Completed [facility] SARS-COV-2 COVID-19 PFIZER VACCINE Unknown Completed [facility] SARS-COV-2 COVID-19 PFIZER VACCINE Unknown Completed [facility] Pneumococcal 20 Conjugate, PCV20 (Prevnar 20) Unknown Completed [facility] Influenza Virus Vaccine,quad Im,preserve Free 65+ (FLUAD) Unknown Completed [facility] Influenza High Dose Unknown Completed [facility] Pneumococcal 13 Conjugate, PCV13 (Prevnar 13) Unknown Completed [facility] SARS-COV-2 COVID-19 PFIZER VACCINE Unknown Completed [facility] SARS-COV-2 COVID-19 PFIZER VACCINE Unknown Completed [facility] SARS-COV-2 COVID-19 PFIZER VACCINE Unknown Completed [facility] Pneumococcal 20 Conjugate, PCV20 (Prevnar 20) Unknown Completed [facility] Influenza Virus Vaccine,quad Im,preserve Free 65+ (FLUAD) Unknown Completed [facility] Influenza High Dose Unknown Completed [facility] Pneumococcal 13 Conjugate, PCV13 (Prevnar 13) Unknown Completed [facility] SARS-COV-2 COVID-19 PFIZER VACCINE Unknown Completed [facility] SARS-COV-2 COVID-19 PFIZER VACCINE Unknown Completed [facility] SARS-COV-2 COVID-19 PFIZER VACCINE Unknown Completed [facility] Pneumococcal 20 Conjugate, PCV20 (Prevnar 20) Unknown Completed [facility] Influenza Virus Vaccine,quad Im,preserve Free 65+ (FLUAD) Unknown Completed [facility] Influenza High Dose Unknown Completed [facility] Pneumococcal 13 Conjugate, PCV13 (Prevnar 13) Unknown Completed [facility] SARS-COV-2 COVID-19 PFIZER VACCINE Unknown Completed [facility] SARS-COV-2 COVID-19 PFIZER VACCINE Unknown Completed [facility] SARS-COV-2 COVID-19 PFIZER VACCINE Unknown Completed [facility] Pneumococcal 20 Conjugate, PCV20 (Prevnar 20) Unknown Completed [facility] Influenza Virus Vaccine,quad Im,preserve Free 65+ (FLUAD) Unknown Completed [facility] Influenza High Dose Unknown Completed [facility] Pneumococcal 13 Conjugate, PCV13 (Prevnar 13) Unknown Completed [facility] SARS-COV-2 COVID-19 PFIZER VACCINE Unknown Completed [facility] SARS-COV-2 COVID-19 PFIZER VACCINE Unknown Completed [facility] SARS-COV-2 COVID-19 PFIZER VACCINE Unknown Completed [facility] Pneumococcal 20 Conjugate, PCV20 (Prevnar 20) Unknown Completed [facility] Influenza Virus Vaccine,quad Im,preserve Free 65+ (FLUAD) Unknown Completed [facility] Influenza High Dose Unknown Completed [facility] Pneumococcal 13 Conjugate, PCV13 (Prevnar 13) Unknown Completed [facility] SARS-COV-2 COVID-19 PFIZER VACCINE Unknown Completed [facility] SARS-COV-2 COVID-19 PFIZER VACCINE Unknown Completed [facility] SARS-COV-2 COVID-19 PFIZER VACCINE Unknown Completed [facility] Pneumococcal 20 Conjugate, PCV20 (Prevnar 20) Unknown Completed [facility] Influenza Virus Vaccine,quad Im,preserve Free 65+ (FLUAD) Unknown Completed [facility] Influenza High Dose Unknown Completed [facility] Pneumococcal 13 Conjugate, PCV13 (Prevnar 13) Unknown Completed [facility] SARS-COV-2 COVID-19 PFIZER VACCINE Unknown Completed [facility] SARS-COV-2 COVID-19 PFIZER VACCINE Unknown Completed [facility] SARS-COV-2 COVID-19 PFIZER VACCINE Unknown Completed [facility] Pneumococcal 20 Conjugate, PCV20 (Prevnar 20) Unknown Completed [facility] Influenza Virus Vaccine,quad Im,preserve Free 65+ (FLUAD) Unknown Completed [facility] Influenza High Dose Unknown Completed [facility] Pneumococcal 13 Conjugate, PCV13 (Prevnar 13) Unknown Completed [facility] SARS-COV-2 COVID-19 PFIZER VACCINE Unknown Completed [facility] SARS-COV-2 COVID-19 PFIZER VACCINE Unknown Completed [facility] SARS-COV-2 COVID-19 PFIZER VACCINE Unknown Completed [facility] Pneumococcal 20 Conjugate, PCV20 (Prevnar 20) Unknown Completed [facility] Influenza Virus Vaccine,quad Im,preserve Free 65+ (FLUAD) Unknown Completed [facility] Influenza High Dose Unknown Completed [facility] Pneumococcal 13 Conjugate, PCV13 (Prevnar 13) Unknown Completed [facility] SARS-COV-2 COVID-19 PFIZER VACCINE Unknown Completed [facility] SARS-COV-2 COVID-19 PFIZER VACCINE Unknown Completed [facility] SARS-COV-2 COVID-19 PFIZER VACCINE Unknown Completed [facility] Pneumococcal 20 Conjugate, PCV20 (Prevnar 20) Unknown Completed [facility] Influenza Virus Vaccine,quad Im,preserve Free 65+ (FLUAD) Unknown Completed [facility] Influenza High Dose Unknown Completed [facility] Pneumococcal 13 Conjugate, PCV13 (Prevnar 13) Unknown Completed [facility] SARS-COV-2 COVID-19 PFIZER VACCINE Unknown Completed [facility] SARS-COV-2 COVID-19 PFIZER VACCINE Unknown Completed [facility] SARS-COV-2 COVID-19 PFIZER VACCINE Unknown Completed [facility] Pneumococcal 20 Conjugate, PCV20 (Prevnar 20) Unknown Completed [facility] Influenza Virus Vaccine,quad Im,preserve Free 65+ (FLUAD) Unknown Completed [facility] Influenza High Dose Unknown Completed [facility] Pneumococcal 13 Conjugate, PCV13 (Prevnar 13) Unknown Completed [facility] SARS-COV-2 COVID-19 PFIZER VACCINE Unknown Completed [facility] SARS-COV-2 COVID-19 PFIZER VACCINE Unknown Completed [facility] SARS-COV-2 COVID-19 PFIZER VACCINE Unknown Completed [facility] Pneumococcal 20 Conjugate, PCV20 (Prevnar 20) Unknown Completed [facility] Influenza Virus Vaccine,quad Im,preserve Free 65+ (FLUAD) Unknown Completed [facility] Influenza High Dose Unknown Completed [facility] Pneumococcal 13 Conjugate, PCV13 (Prevnar 13) Unknown Completed [facility] SARS-COV-2 COVID-19 PFIZER VACCINE Unknown Completed [facility] SARS-COV-2 COVID-19 PFIZER VACCINE Unknown Completed [facility] SARS-COV-2 COVID-19 PFIZER VACCINE Unknown Completed [facility] Pneumococcal 20 Conjugate, PCV20 (Prevnar 20) Unknown Completed [facility] Influenza Virus Vaccine,quad Im,preserve Free 65+ (FLUAD) Unknown Completed [facility] Influenza High Dose Unknown Completed [facility] Pneumococcal 13 Conjugate, PCV13 (Prevnar 13) Unknown Completed [facility] SARS-COV-2 COVID-19 PFIZER VACCINE Unknown Completed [facility] SARS-COV-2 COVID-19 PFIZER VACCINE Unknown Completed [facility] SARS-COV-2 COVID-19 PFIZER VACCINE Unknown Completed [facility] Pneumococcal 20 Conjugate, PCV20 (Prevnar 20) Unknown Completed [facility] Influenza Virus Vaccine,quad Im,preserve Free 65+ (FLUAD) Unknown Completed [facility] Influenza High Dose Unknown Completed [facility] Pneumococcal 13 Conjugate, PCV13 (Prevnar 13) Unknown Completed [facility] SARS-COV-2 COVID-19 PFIZER VACCINE Unknown Completed [facility] SARS-COV-2 COVID-19 PFIZER VACCINE Unknown Completed [facility] SARS-COV-2 COVID-19 PFIZER VACCINE Unknown Completed [facility] Pneumococcal 20 Conjugate, PCV20 (Prevnar 20) Unknown Completed [facility] Influenza Virus Vaccine,quad Im,preserve Free 65+ (FLUAD) Unknown Completed [facility] Influenza High Dose Unknown Completed [facility] Pneumococcal 13 Conjugate, PCV13 (Prevnar 13) Unknown Completed [facility] SARS-COV-2 COVID-19 PFIZER VACCINE Unknown Completed [facility] SARS-COV-2 COVID-19 PFIZER VACCINE Unknown Completed [facility] SARS-COV-2 COVID-19 PFIZER VACCINE Unknown Completed [facility] Pneumococcal 20 Conjugate, PCV20 (Prevnar 20) Unknown Completed [facility] Influenza Virus Vaccine,quad Im,preserve Free 65+ (FLUAD) Unknown Completed [facility] Influenza High Dose Unknown Completed [facility] Pneumococcal 13 Conjugate, PCV13 (Prevnar 13) Unknown Completed [facility] SARS-COV-2 COVID-19 PFIZER VACCINE Unknown Completed [facility] SARS-COV-2 COVID-19 PFIZER VACCINE Unknown Completed [facility] SARS-COV-2 COVID-19 PFIZER VACCINE Unknown Completed [facility] Pneumococcal 20 Conjugate, PCV20 (Prevnar 20) Unknown Completed [facility] Influenza Virus Vaccine,quad Im,preserve Free 65+ (FLUAD) Unknown Completed [facility] Influenza High Dose Unknown Completed [facility] Pneumococcal 13 Conjugate, PCV13 (Prevnar 13) Unknown Completed [facility] SARS-COV-2 COVID-19 PFIZER VACCINE Unknown Completed [facility] SARS-COV-2 COVID-19 PFIZER VACCINE Unknown Completed [facility] SARS-COV-2 COVID-19 PFIZER VACCINE Unknown Completed [facility] Pneumococcal 20 Conjugate, PCV20 (Prevnar 20) Unknown Completed [facility] Influenza Virus Vaccine,quad Im,preserve Free 65+ (FLUAD) Unknown Completed [facility] Influenza High Dose Unknown Completed [facility] Pneumococcal 13 Conjugate, PCV13 (Prevnar 13) Unknown Completed [facility] SARS-COV-2 COVID-19 PFIZER VACCINE Unknown Completed [facility] SARS-COV-2 COVID-19 PFIZER VACCINE Unknown Completed [facility] SARS-COV-2 COVID-19 PFIZER VACCINE Unknown Completed [facility] Pneumococcal 20 Conjugate, PCV20 (Prevnar 20) Unknown Completed [facility] Influenza Virus Vaccine,quad Im,preserve Free 65+ (FLUAD) Unknown Completed [facility] Influenza High Dose Unknown Completed [facility] Pneumococcal 13 Conjugate, PCV13 (Prevnar 13) Unknown Completed [facility] SARS-COV-2 COVID-19 PFIZER VACCINE Unknown Completed [facility] SARS-COV-2 COVID-19 PFIZER VACCINE Unknown Completed [facility] SARS-COV-2 COVID-19 PFIZER VACCINE Unknown Completed [facility] Pneumococcal 20 Conjugate, PCV20 (Prevnar 20) Unknown Completed [facility] Influenza Virus Vaccine,quad Im,preserve Free 65+ (FLUAD) Unknown Completed [facility] Influenza High Dose Unknown Completed [facility] Pneumococcal 13 Conjugate, PCV13 (Prevnar 13) Unknown Completed [facility] SARS-COV-2 COVID-19 PFIZER VACCINE Unknown Completed [facility] SARS-COV-2 COVID-19 PFIZER VACCINE Unknown Completed [facility] SARS-COV-2 COVID-19 PFIZER VACCINE Unknown Completed [facility] Pneumococcal 20 Conjugate, PCV20 (Prevnar 20) Unknown Completed [facility] Influenza Virus Vaccine,quad Im,preserve Free 65+ (FLUAD) Unknown Completed [facility] Influenza High Dose Unknown Completed [facility] Pneumococcal 13 Conjugate, PCV13 (Prevnar 13) Unknown Completed [facility] SARS-COV-2 COVID-19 PFIZER VACCINE Unknown Completed [facility] SARS-COV-2 COVID-19 PFIZER VACCINE Unknown Completed [facility] SARS-COV-2 COVID-19 PFIZER VACCINE Unknown Completed [facility] Pneumococcal 20 Conjugate, PCV20 (Prevnar 20) Unknown Completed [facility] Influenza Virus Vaccine,quad Im,preserve Free 65+ (FLUAD) Unknown Completed [facility] Influenza High Dose Unknown Completed [facility] Pneumococcal 13 Conjugate, PCV13 (Prevnar 13) Unknown Completed [facility] SARS-COV-2 COVID-19 PFIZER VACCINE Unknown Completed [facility] SARS-COV-2 COVID-19 PFIZER VACCINE Unknown Completed [facility] SARS-COV-2 COVID-19 PFIZER VACCINE Unknown Completed [facility] Pneumococcal 20 Conjugate, PCV20 (Prevnar 20) Unknown Completed [facility] Influenza Virus Vaccine,quad Im,preserve Free 65+ (FLUAD) Unknown Completed [facility] Influenza High Dose Unknown Completed [facility] Pneumococcal 13 Conjugate, PCV13 (Prevnar 13) Unknown Completed [facility] SARS-COV-2 COVID-19 PFIZER VACCINE Unknown Completed [facility] SARS-COV-2 COVID-19 PFIZER VACCINE Unknown Completed [facility] SARS-COV-2 COVID-19 PFIZER VACCINE Unknown Completed [facility] Pneumococcal 20 Conjugate, PCV20 (Prevnar 20) Unknown Completed [facility] Influenza Virus Vaccine,quad Im,preserve Free 65+ (FLUAD) Unknown Completed [facility] Influenza High Dose Unknown Completed [facility] Pneumococcal 13 Conjugate, PCV13 (Prevnar 13) Unknown Completed [facility] SARS-COV-2 COVID-19 PFIZER VACCINE Unknown Completed [facility] SARS-COV-2 COVID-19 PFIZER VACCINE Unknown Completed [facility] SARS-COV-2 COVID-19 PFIZER VACCINE Unknown Completed [facility] Pneumococcal 20 Conjugate, PCV20 (Prevnar 20) Unknown Completed [facility] Influenza Virus Vaccine,quad Im,preserve Free 65+ (FLUAD) Unknown Completed [facility] Influenza High Dose Unknown Completed [facility] Pneumococcal 13 Conjugate, PCV13 (Prevnar 13) Unknown Completed [facility] SARS-COV-2 COVID-19 PFIZER VACCINE Unknown Completed [facility] SARS-COV-2 COVID-19 PFIZER VACCINE Unknown Completed [facility] SARS-COV-2 COVID-19 PFIZER VACCINE Unknown Completed [facility] Pneumococcal 20 Conjugate, PCV20 (Prevnar 20) Unknown Completed [facility] Influenza Virus Vaccine,quad Im,preserve Free 65+ (FLUAD) Unknown Completed [facility] Influenza High Dose Unknown Completed [facility] Pneumococcal 13 Conjugate, PCV13 (Prevnar 13) Unknown Completed [facility] SARS-COV-2 COVID-19 PFIZER VACCINE Unknown Completed [facility] SARS-COV-2 COVID-19 PFIZER VACCINE Unknown Completed [facility] SARS-COV-2 COVID-19 PFIZER VACCINE Unknown Completed [facility] Pneumococcal 20 Conjugate, PCV20 (Prevnar 20) Unknown Completed [facility] Influenza Virus Vaccine,quad Im,preserve Free 65+ (FLUAD) Unknown Completed [facility] Influenza High Dose Unknown Completed [facility] Pneumococcal 13 Conjugate, PCV13 (Prevnar 13) Unknown Completed [facility] SARS-COV-2 COVID-19 PFIZER VACCINE Unknown Completed [facility] SARS-COV-2 COVID-19 PFIZER VACCINE Unknown Completed [facility] SARS-COV-2 COVID-19 PFIZER VACCINE Unknown Completed [facility] Pneumococcal 20 Conjugate, PCV20 (Prevnar 20) Unknown Completed [facility] Influenza High Dose Unknown Completed [facility] Pneumococcal 13 Conjugate, PCV13 (Prevnar 13) Unknown Completed [facility] SARS-COV-2 COVID-19 PFIZER VACCINE Unknown Completed [facility] SARS-COV-2 COVID-19 PFIZER VACCINE Unknown Completed [facility] SARS-COV-2 COVID-19 PFIZER VACCINE Unknown Completed [facility] Pneumococcal 20 Conjugate, PCV20 (Prevnar 20) Unknown Completed [facility] Influenza Virus Vaccine,quad Im,preserve Free 65+ (FLUAD) Unknown Completed [facility] Influenza High Dose Unknown Completed [facility] Pneumococcal 13 Conjugate, PCV13 (Prevnar 13) Unknown Completed [facility] SARS-COV-2 COVID-19 PFIZER VACCINE Unknown Completed [facility] SARS-COV-2 COVID-19 PFIZER VACCINE Unknown Completed [facility] SARS-COV-2 COVID-19 PFIZER VACCINE Unknown Completed [facility] Pneumococcal 20 Conjugate, PCV20 (Prevnar 20) Unknown Completed [facility] Influenza Virus Vaccine,quad Im,preserve Free 65+ (FLUAD) Unknown Completed [facility] Influenza High Dose Unknown Completed [facility] Pneumococcal 13 Conjugate, PCV13 (Prevnar 13) Unknown Completed [facility] SARS-COV-2 COVID-19 PFIZER VACCINE Unknown Completed [facility] SARS-COV-2 COVID-19 PFIZER VACCINE Unknown Completed [facility] SARS-COV-2 COVID-19 PFIZER VACCINE Unknown Completed [facility] Pneumococcal 20 Conjugate, PCV20 (Prevnar 20) Unknown Completed [facility] Influenza Virus Vaccine,quad Im,preserve Free 65+ (FLUAD) Unknown Completed [facility] Influenza High Dose Unknown Completed [facility] Pneumococcal 13 Conjugate, PCV13 (Prevnar 13) Unknown Completed [facility] SARS-COV-2 COVID-19 PFIZER VACCINE Unknown Completed [facility] SARS-COV-2 COVID-19 PFIZER VACCINE Unknown Completed [facility] SARS-COV-2 COVID-19 PFIZER VACCINE Unknown Completed [facility] Pneumococcal 20 Conjugate, PCV20 (Prevnar 20) Unknown Completed [facility] Influenza Virus Vaccine,quad Im,preserve Free 65+ (FLUAD) Unknown Completed [facility] Influenza High Dose Unknown Completed [facility] Pneumococcal 13 Conjugate, PCV13 (Prevnar 13) Unknown Completed [facility] SARS-COV-2 COVID-19 PFIZER VACCINE Unknown Completed [facility] SARS-COV-2 COVID-19 PFIZER VACCINE Unknown Completed [facility] SARS-COV-2 COVID-19 PFIZER VACCINE Unknown Completed [facility] Pneumococcal 20 Conjugate, PCV20 (Prevnar 20) Unknown Completed [facility] Influenza Virus Vaccine,quad Im,preserve Free 65+ (FLUAD) Unknown Completed [facility] Influenza High Dose Unknown Completed [facility] Pneumococcal 13 Conjugate, PCV13 (Prevnar 13) Unknown Completed [facility] SARS-COV-2 COVID-19 PFIZER VACCINE Unknown Completed [facility] SARS-COV-2 COVID-19 PFIZER VACCINE Unknown Completed [facility] SARS-COV-2 COVID-19 PFIZER VACCINE Unknown Completed [facility] Pneumococcal 20 Conjugate, PCV20 (Prevnar 20) Unknown Completed [facility] Influenza Virus Vaccine,quad Im,preserve Free 65+ (FLUAD) Unknown Completed [facility] Influenza High Dose Unknown Completed [facility] Pneumococcal 13 Conjugate, PCV13 (Prevnar 13) Unknown Completed [facility] SARS-COV-2 COVID-19 PFIZER VACCINE Unknown Completed [facility] SARS-COV-2 COVID-19 PFIZER VACCINE Unknown Completed [facility] SARS-COV-2 COVID-19 PFIZER VACCINE Unknown Completed [facility] Pneumococcal 20 Conjugate, PCV20 (Prevnar 20) Unknown Completed [facility] Influenza Virus Vaccine,quad Im,preserve Free 65+ (FLUAD) Unknown Completed [facility] Influenza High Dose Unknown Completed [facility] Pneumococcal 13 Conjugate, PCV13 (Prevnar 13) Unknown Completed [facility] SARS-COV-2 COVID-19 PFIZER VACCINE Unknown Completed [facility] SARS-COV-2 COVID-19 PFIZER VACCINE Unknown Completed [facility] SARS-COV-2 COVID-19 PFIZER VACCINE Unknown Completed [facility] Pneumococcal 20 Conjugate, PCV20 (Prevnar 20) Unknown Completed [facility] Influenza Virus Vaccine,quad Im,preserve Free 65+ (FLUAD) Unknown Completed [facility] Influenza High Dose Unknown Completed [facility] Pneumococcal 13 Conjugate, PCV13 (Prevnar 13) Unknown Completed [facility] SARS-COV-2 COVID-19 PFIZER VACCINE Unknown Completed [facility] SARS-COV-2 COVID-19 PFIZER VACCINE Unknown Completed [facility] SARS-COV-2 COVID-19 PFIZER VACCINE Unknown Completed [facility] Pneumococcal 20 Conjugate, PCV20 (Prevnar 20) Unknown Completed [facility] Influenza Virus Vaccine,quad Im,preserve Free 65+ (FLUAD) Unknown Completed [facility] Influenza High Dose Unknown Completed [facility] Pneumococcal 13 Conjugate, PCV13 (Prevnar 13) Unknown Completed [facility] SARS-COV-2 COVID-19 PFIZER VACCINE Unknown Completed [facility] SARS-COV-2 COVID-19 PFIZER VACCINE Unknown Completed [facility] SARS-COV-2 COVID-19 PFIZER VACCINE Unknown Completed [facility] Pneumococcal 20 Conjugate, PCV20 (Prevnar 20) Unknown Completed [facility] Influenza Virus Vaccine,quad Im,preserve Free 65+ (FLUAD) Unknown Completed [facility] Influenza High Dose Unknown Completed [facility] Pneumococcal 13 Conjugate, PCV13 (Prevnar 13) Unknown Completed [facility] SARS-COV-2 COVID-19 PFIZER VACCINE Unknown Completed [facility] SARS-COV-2 COVID-19 PFIZER VACCINE Unknown Completed [facility] SARS-COV-2 COVID-19 PFIZER VACCINE Unknown Completed [facility] Pneumococcal 20 Conjugate, PCV20 (Prevnar 20) Unknown Completed [facility] Influenza Virus Vaccine,quad Im,preserve Free 65+ (FLUAD) Unknown Completed [facility] Influenza High Dose Unknown Completed [facility] Pneumococcal 13 Conjugate, PCV13 (Prevnar 13) Unknown Completed [facility] SARS-COV-2 COVID-19 PFIZER VACCINE Unknown Completed [facility] SARS-COV-2 COVID-19 PFIZER VACCINE Unknown Completed [facility] SARS-COV-2 COVID-19 PFIZER VACCINE Unknown Completed [facility] Pneumococcal 20 Conjugate, PCV20 (Prevnar 20) Unknown Completed [facility] Influenza Virus Vaccine,quad Im,preserve Free 65+ (FLUAD) Unknown Completed [facility] Influenza High Dose Unknown Completed [facility] Pneumococcal 13 Conjugate, PCV13 (Prevnar 13) Unknown Completed [facility] SARS-COV-2 COVID-19 PFIZER VACCINE Unknown Completed [facility] SARS-COV-2 COVID-19 PFIZER VACCINE Unknown Completed [facility] SARS-COV-2 COVID-19 PFIZER VACCINE Unknown Completed [facility] Pneumococcal 20 Conjugate, PCV20 (Prevnar 20) Unknown Completed [facility] Influenza Virus Vaccine,quad Im,preserve Free 65+ (FLUAD) Unknown Completed [facility] Influenza High Dose Unknown Completed [facility] Pneumococcal 13 Conjugate, PCV13 (Prevnar 13) Unknown Completed [facility] SARS-COV-2 COVID-19 PFIZER VACCINE Unknown Completed [facility] SARS-COV-2 COVID-19 PFIZER VACCINE Unknown Completed [facility] SARS-COV-2 COVID-19 PFIZER VACCINE Unknown Completed [facility] Pneumococcal 20 Conjugate, PCV20 (Prevnar 20) Unknown Completed [facility] Influenza Virus Vaccine,quad Im,preserve Free 65+ (FLUAD) Unknown Completed [facility] Influenza High Dose Unknown Completed [facility] Pneumococcal 13 Conjugate, PCV13 (Prevnar 13) Unknown Completed [facility] SARS-COV-2 COVID-19 PFIZER VACCINE Unknown Completed [facility] SARS-COV-2 COVID-19 PFIZER VACCINE Unknown Completed [facility] SARS-COV-2 COVID-19 PFIZER VACCINE Unknown Completed [facility] Pneumococcal 20 Conjugate, PCV20 (Prevnar 20) Unknown Completed [facility] Influenza Virus Vaccine,quad Im,preserve Free 65+ (FLUAD) Unknown Completed [facility] Influenza High Dose Unknown Completed [facility] Pneumococcal 13 Conjugate, PCV13 (Prevnar 13) Unknown Completed [facility] SARS-COV-2 COVID-19 PFIZER VACCINE Unknown Completed [facility] SARS-COV-2 COVID-19 PFIZER VACCINE Unknown Completed [facility] SARS-COV-2 COVID-19 PFIZER VACCINE Unknown Completed [facility] Pneumococcal 20 Conjugate, PCV20 (Prevnar 20) Unknown Completed [facility] Influenza Virus Vaccine,quad Im,preserve Free 65+ (FLUAD) Unknown Completed [facility] Influenza High Dose Unknown Completed [facility] Pneumococcal 13 Conjugate, PCV13 (Prevnar 13) Unknown Completed [facility] SARS-COV-2 COVID-19 PFIZER VACCINE Unknown Completed [facility] SARS-COV-2 COVID-19 PFIZER VACCINE Unknown Completed [facility] SARS-COV-2 COVID-19 PFIZER VACCINE Unknown Completed [facility] Pneumococcal 20 Conjugate, PCV20 (Prevnar 20) Unknown Completed [facility] Influenza Virus Vaccine,quad Im,preserve Free 65+ (FLUAD) Unknown Completed [facility] Influenza High Dose Unknown Completed [facility] Pneumococcal 13 Conjugate, PCV13 (Prevnar 13) Unknown Completed [facility] SARS-COV-2 COVID-19 PFIZER VACCINE Unknown Completed [facility] SARS-COV-2 COVID-19 PFIZER VACCINE Unknown Completed [facility] SARS-COV-2 COVID-19 PFIZER VACCINE Unknown Completed [facility] Pneumococcal 20 Conjugate, PCV20 (Prevnar 20) Unknown Completed [facility] Influenza Virus Vaccine,quad Im,preserve Free 65+ (FLUAD) Unknown Completed [facility] Influenza High Dose Unknown Completed [facility] Pneumococcal 13 Conjugate, PCV13 (Prevnar 13) Unknown Completed [facility] SARS-COV-2 COVID-19 PFIZER VACCINE Unknown Completed [facility] SARS-COV-2 COVID-19 PFIZER VACCINE Unknown Completed [facility] SARS-COV-2 COVID-19 PFIZER VACCINE Unknown Completed [facility] Pneumococcal 20 Conjugate, PCV20 (Prevnar 20) Unknown Completed [facility] Influenza Virus Vaccine,quad Im,preserve Free 65+ (FLUAD) Unknown Completed [facility] Influenza High Dose Unknown Completed [facility] Pneumococcal 13 Conjugate, PCV13 (Prevnar 13) Unknown Completed [facility] SARS-COV-2 COVID-19 PFIZER VACCINE Unknown Completed [facility] SARS-COV-2 COVID-19 PFIZER VACCINE Unknown Completed [facility] SARS-COV-2 COVID-19 PFIZER VACCINE Unknown Completed [facility] Pneumococcal 20 Conjugate, PCV20 (Prevnar 20) Unknown Completed [facility] Influenza Virus Vaccine,quad Im,preserve Free 65+ (FLUAD) Unknown Completed [facility] Influenza High Dose Unknown Completed [facility] Pneumococcal 13 Conjugate, PCV13 (Prevnar 13) Unknown Completed [facility] SARS-COV-2 COVID-19 PFIZER VACCINE Unknown Completed [facility] SARS-COV-2 COVID-19 PFIZER VACCINE Unknown Completed [facility] SARS-COV-2 COVID-19 PFIZER VACCINE Unknown Completed [facility] Pneumococcal 20 Conjugate, PCV20 (Prevnar 20) Unknown Completed [facility] Influenza Virus Vaccine,quad Im,preserve Free 65+ (FLUAD) Unknown Completed [facility] Influenza High Dose Unknown Completed [facility] Pneumococcal 13 Conjugate, PCV13 (Prevnar 13) Unknown Completed [facility] SARS-COV-2 COVID-19 PFIZER VACCINE Unknown Completed [facility] SARS-COV-2 COVID-19 PFIZER VACCINE Unknown Completed [facility] SARS-COV-2 COVID-19 PFIZER VACCINE Unknown Completed [facility] Pneumococcal 20 Conjugate, PCV20 (Prevnar 20) Unknown Completed [facility] Influenza Virus Vaccine,quad Im,preserve Free 65+ (FLUAD) Unknown Completed [facility] Influenza High Dose Unknown Completed [facility] Pneumococcal 13 Conjugate, PCV13 (Prevnar 13) Unknown Completed [facility] SARS-COV-2 COVID-19 PFIZER VACCINE Unknown Completed [facility] SARS-COV-2 COVID-19 PFIZER VACCINE Unknown Completed [facility] SARS-COV-2 COVID-19 PFIZER VACCINE Unknown Completed [facility] Pneumococcal 20 Conjugate, PCV20 (Prevnar 20) Unknown Completed [facility] Influenza Virus Vaccine,quad Im,preserve Free 65+ (FLUAD) Unknown Completed [facility] Influenza High Dose Unknown Completed [facility] Pneumococcal 13 Conjugate, PCV13 (Prevnar 13) Unknown Completed [facility] SARS-COV-2 COVID-19 PFIZER VACCINE Unknown Completed [facility] SARS-COV-2 COVID-19 PFIZER VACCINE Unknown Completed [facility] SARS-COV-2 COVID-19 PFIZER VACCINE Unknown Completed [facility] Pneumococcal 20 Conjugate, PCV20 (Prevnar 20) Unknown Completed [facility] Influenza Virus Vaccine,quad Im,preserve Free 65+ (FLUAD) Unknown Completed [facility] Influenza High Dose Unknown Completed [facility] Pneumococcal 13 Conjugate, PCV13 (Prevnar 13) Unknown Completed [facility] SARS-COV-2 COVID-19 PFIZER VACCINE Unknown Completed [facility] SARS-COV-2 COVID-19 PFIZER VACCINE Unknown Completed [facility] SARS-COV-2 COVID-19 PFIZER VACCINE Unknown Completed [facility] Pneumococcal 20 Conjugate, PCV20 (Prevnar 20) Unknown Completed [facility] Influenza Virus Vaccine,quad Im,preserve Free 65+ (FLUAD) Unknown Completed [facility] Influenza High Dose Unknown Completed [facility] Pneumococcal 13 Conjugate, PCV13 (Prevnar 13) Unknown Completed [facility] SARS-COV-2 COVID-19 PFIZER VACCINE Unknown Completed [facility] SARS-COV-2 COVID-19 PFIZER VACCINE Unknown Completed [facility] SARS-COV-2 COVID-19 PFIZER VACCINE Unknown Completed [facility] Pneumococcal 20 Conjugate, PCV20 (Prevnar 20) Unknown Completed [facility] Influenza Virus Vaccine,quad Im,preserve Free 65+ (FLUAD) Unknown Completed [facility] Influenza High Dose Unknown Completed [facility] Pneumococcal 13 Conjugate, PCV13 (Prevnar 13) Unknown Completed [facility] SARS-COV-2 COVID-19 PFIZER VACCINE Unknown Completed [facility] SARS-COV-2 COVID-19 PFIZER VACCINE Unknown Completed [facility] SARS-COV-2 COVID-19 PFIZER VACCINE Unknown Completed [facility] Pneumococcal 20 Conjugate, PCV20 (Prevnar 20) Unknown Completed [facility] Influenza Virus Vaccine,quad Im,preserve Free 65+ (FLUAD) Unknown Completed [facility] Influenza High Dose Unknown Completed [facility] Pneumococcal 13 Conjugate, PCV13 (Prevnar 13) Unknown Completed [facility] SARS-COV-2 COVID-19 PFIZER VACCINE Unknown Completed [facility] SARS-COV-2 COVID-19 PFIZER VACCINE Unknown Completed [facility] SARS-COV-2 COVID-19 PFIZER VACCINE Unknown Completed [facility] Pneumococcal 20 Conjugate, PCV20 (Prevnar 20) Unknown Completed [facility] Influenza Virus Vaccine,quad Im,preserve Free 65+ (FLUAD) Unknown Completed [facility] Influenza High Dose Unknown Completed [facility] Pneumococcal 13 Conjugate, PCV13 (Prevnar 13) Unknown Completed [facility] SARS-COV-2 COVID-19 PFIZER VACCINE Unknown Completed [facility] SARS-COV-2 COVID-19 PFIZER VACCINE Unknown Completed [facility] SARS-COV-2 COVID-19 PFIZER VACCINE Unknown Completed [facility] Pneumococcal 20 Conjugate, PCV20 (Prevnar 20) Unknown Completed [facility] Influenza Virus Vaccine,quad Im,preserve Free 65+ (FLUAD) Unknown Completed [facility] Influenza High Dose Unknown Completed [facility] Pneumococcal 13 Conjugate, PCV13 (Prevnar 13) Unknown Completed [facility] SARS-COV-2 COVID-19 PFIZER VACCINE Unknown Completed [facility] SARS-COV-2 COVID-19 PFIZER VACCINE Unknown Completed [facility] SARS-COV-2 COVID-19 PFIZER VACCINE Unknown Completed [facility] Pneumococcal 20 Conjugate, PCV20 (Prevnar 20) Unknown Completed [facility] Influenza Virus Vaccine,quad Im,preserve Free 65+ (FLUAD) Unknown Completed [facility] Influenza High Dose Unknown Completed [facility] Pneumococcal 13 Conjugate, PCV13 (Prevnar 13) Unknown Completed [facility] SARS-COV-2 COVID-19 PFIZER VACCINE Unknown Completed [facility] SARS-COV-2 COVID-19 PFIZER VACCINE Unknown Completed [facility] SARS-COV-2 COVID-19 PFIZER VACCINE Unknown Completed [facility] Pneumococcal 20 Conjugate, PCV20 (Prevnar 20) Unknown Completed [facility] Influenza Virus Vaccine,quad Im,preserve Free 65+ (FLUAD) Unknown Completed [facility] Influenza High Dose Unknown Completed [facility] Pneumococcal 13 Conjugate, PCV13 (Prevnar 13) Unknown Completed [facility] SARS-COV-2 COVID-19 PFIZER VACCINE Unknown Completed [facility] SARS-COV-2 COVID-19 PFIZER VACCINE Unknown Completed [facility] SARS-COV-2 COVID-19 PFIZER VACCINE Unknown Completed [facility] Pneumococcal 20 Conjugate, PCV20 (Prevnar 20) Unknown Completed [facility] Influenza Virus Vaccine,quad Im,preserve Free 65+ (FLUAD) Unknown Completed [facility] Influenza High Dose Unknown Completed [facility] Pneumococcal 13 Conjugate, PCV13 (Prevnar 13) Unknown Completed [facility] SARS-COV-2 COVID-19 PFIZER VACCINE Unknown Completed [facility] SARS-COV-2 COVID-19 PFIZER VACCINE Unknown Completed [facility] SARS-COV-2 COVID-19 PFIZER VACCINE Unknown Completed [facility] Pneumococcal 20 Conjugate, PCV20 (Prevnar 20) Unknown Completed [facility] Influenza Virus Vaccine,quad Im,preserve Free 65+ (FLUAD) Unknown Completed [facility] Influenza High Dose Unknown Completed [facility] Pneumococcal 13 Conjugate, PCV13 (Prevnar 13) Unknown Completed [facility] SARS-COV-2 COVID-19 PFIZER VACCINE Unknown Completed [facility] SARS-COV-2 COVID-19 PFIZER VACCINE Unknown Completed [facility] SARS-COV-2 COVID-19 PFIZER VACCINE Unknown Completed [facility] Pneumococcal 20 Conjugate, PCV20 (Prevnar 20) Unknown Completed [facility] Influenza Virus Vaccine,quad Im,preserve Free 65+ (FLUAD) Unknown Completed [facility] Influenza High Dose Unknown Completed [facility] Pneumococcal 13 Conjugate, PCV13 (Prevnar 13) Unknown Completed [facility] SARS-COV-2 COVID-19 PFIZER VACCINE Unknown Completed [facility] SARS-COV-2 COVID-19 PFIZER VACCINE Unknown Completed [facility] SARS-COV-2 COVID-19 PFIZER VACCINE Unknown Completed [facility] Pneumococcal 20 Conjugate, PCV20 (Prevnar 20) Unknown Completed [facility] Influenza Virus Vaccine,quad Im,preserve Free 65+ (FLUAD) Unknown Completed [facility] Influenza High Dose Unknown Completed [facility] Pneumococcal 13 Conjugate, PCV13 (Prevnar 13) Unknown Completed [facility] SARS-COV-2 COVID-19 PFIZER VACCINE Unknown Completed [facility] SARS-COV-2 COVID-19 PFIZER VACCINE Unknown Completed [facility] SARS-COV-2 COVID-19 PFIZER VACCINE Unknown Completed [facility] Pneumococcal 20 Conjugate, PCV20 (Prevnar 20) Unknown Completed [facility] Influenza Virus Vaccine,quad Im,preserve Free 65+ (FLUAD) Unknown Completed [facility] Influenza High Dose Unknown Completed [facility] Pneumococcal 13 Conjugate, PCV13 (Prevnar 13) Unknown Completed [facility] SARS-COV-2 COVID-19 PFIZER VACCINE Unknown Completed [facility] SARS-COV-2 COVID-19 PFIZER VACCINE Unknown Completed [facility] SARS-COV-2 COVID-19 PFIZER VACCINE Unknown Completed [facility] Pneumococcal 20 Conjugate, PCV20 (Prevnar 20) Unknown Completed [facility] Influenza Virus Vaccine,quad Im,preserve Free 65+ (FLUAD) Unknown Completed [facility] Influenza High Dose Unknown Completed [facility] Pneumococcal 13 Conjugate, PCV13 (Prevnar 13) Unknown Completed [facility] Influenza High Dose Unknown Completed [facility] Pneumococcal 13 Conjugate, PCV13 (Prevnar 13) Unknown Completed [facility] SARS-COV-2 COVID-19 PFIZER VACCINE Unknown Completed [facility] SARS-COV-2 COVID-19 PFIZER VACCINE Unknown Completed [facility] SARS-COV-2 COVID-19 PFIZER VACCINE Unknown Completed [facility] Pneumococcal 20 Conjugate, PCV20 (Prevnar 20) Unknown Completed [facility] Influenza Virus Vaccine,quad Im,preserve Free 65+ (FLUAD) Unknown Completed [facility] Influenza High Dose Unknown Completed [facility] Pneumococcal 13 Conjugate, PCV13 (Prevnar 13) Unknown Completed [facility] SARS-COV-2 COVID-19 PFIZER VACCINE Unknown Completed [facility] SARS-COV-2 COVID-19 PFIZER VACCINE Unknown Completed [facility] SARS-COV-2 COVID-19 PFIZER VACCINE Unknown Completed [facility] Pneumococcal 20 Conjugate, PCV20 (Prevnar 20) Unknown Completed [facility] Influenza Virus Vaccine,quad Im,preserve Free 65+ (FLUAD) Unknown Completed [facility] Influenza High Dose Unknown Completed [facility] Pneumococcal 13 Conjugate, PCV13 (Prevnar 13) Unknown Completed [facility] SARS-COV-2 COVID-19 PFIZER VACCINE Unknown Completed [facility] SARS-COV-2 COVID-19 PFIZER VACCINE Unknown Completed [facility] SARS-COV-2 COVID-19 PFIZER VACCINE Unknown Completed [facility] Pneumococcal 20 Conjugate, PCV20 (Prevnar 20) Unknown Completed [facility] Influenza Virus Vaccine,quad Im,preserve Free 65+ (FLUAD) Unknown Completed [facility] Vital Signs Vital Name Observation Time Observation Value Comments S ource Systolic blood pressure 2023-09-08 19:30:00 143 mm[Hg] [facility] Diastolic blood pressure 2023-09-08 19:30:00 66 mm[Hg] [facility] Heart rate 2023-09-08 19:30:00 77 /min [facility] Body temperature 2023-09-08 19:30:00 36.72 Joyce [facility] Respiratory rate 2023-09-08 19:30:00 18 /min [facility] Oxygen saturation in Arterial blood by Pulse oximetry 2023-09-08 19:30:00 100 /min [facility] Body height 2023-09-08 16:18:00 172.7 cm [facility] Body weight 2023-09-08 16:18:00 52.617 kg [facility] BMI 2023-09-08 16:18:00 17.64 kg/m2 [facility] Systolic blood pressure 2023-09-07 21:00:00 123 mm[Hg] [facility] Diastolic blood pressure 2023-09-07 21:00:00 77 mm[Hg] [facility] Heart rate 2023-09-07 21:00:00 77 /min [facility] Respiratory rate 2023-09-07 21:00:00 24 /min [facility] Oxygen saturation in Arterial blood by Pulse oximetry 2023-09-07 21:00:00 96 /min [facility] Body temperature 2023-09-07 18:44:00 36.61 Joyce [facility] Body weight 2023-09-07 18:44:00 52.617 kg [facility] BMI 2023-09-07 18:44:00 17.64 kg/m2 [facility] Systolic blood pressure 2023-08-11 19:09:00 150 mm[Hg] [facility] Diastolic blood pressure 2023-08-11 19:09:00 89 mm[Hg] [facility] Heart rate 2023-08-11 19:09:00 73 /min [facility] Body temperature 2023-08-11 19:05:00 36.56 Joyce [facility] Body height 2023-08-11 19:05:00 172.7 cm [facility] Body weight 2023-08-11 19:05:00 52.617 kg [facility] BMI 2023-08-11 19:05:00 17.64 kg/m2 [facility] Oxygen saturation in Arterial blood by Pulse oximetry 2023-08-11 19:05:00 95 /min [facility] Systolic blood pressure 2023-08-05 15:30:00 132 mm[Hg] [facility] Diastolic blood pressure 2023-08-05 15:30:00 80 mm[Hg] [facility] Heart rate 2023-08-05 15:30:00 106 /min [facility] Body temperature 2023-08-05 15:30:00 35.83 Joyce [facility] Respiratory rate 2023-08-05 15:30:00 20 /min [facility] Body height 2023-08-05 15:30:00 172.7 cm [facility] Body weight 2023-08-05 15:30:00 52.98 kg [facility] BMI 2023-08-05 15:30:00 17.76 kg/m2 [facility] Oxygen saturation in Arterial blood by Pulse oximetry 2023-08-05 15:30:00 92 /min [facility] Systolic blood pressure 2023-07-15 15:45:00 141 mm[Hg] [facility] Diastolic blood pressure 2023-07-15 15:45:00 83 mm[Hg] [facility] Heart rate 2023-07-15 15:45:00 100 /min [facility] Body temperature 2023-07-15 15:40:00 36.56 Joyce [facility] Body height 2023-07-15 15:40:00 172.7 cm [facility] Body weight 2023-07-15 15:40:00 58.06 kg [facility] BMI 2023-07-15 15:40:00 19.46 kg/m2 [facility] Oxygen saturation in Arterial blood by Pulse oximetry 2023-07-15 15:40:00 94 /min [facility] Systolic blood pressure 2023-06-10 18:30:00 158 mm[Hg] [facility] Diastolic blood pressure 2023-06-10 18:30:00 107 mm[Hg] [facility] Heart rate 2023-06-10 18:30:00 73 /min [facility] Respiratory rate 2023-06-10 18:30:00 33 /min [facility] Oxygen saturation in Arterial blood by Pulse oximetry 2023-06-10 18:30:00 98 /min [facility] Body temperature 2023-06-10 17:29:00 36.17 Joyce [facility] Systolic blood pressure 2023-06-10 17:25:00 187 mm[Hg] [facility] Diastolic blood pressure 2023-06-10 17:25:00 106 mm[Hg] [facility] Heart rate 2023-06-10 17:25:00 72 /min [facility] Body temperature 2023-06-10 17:22:00 36.44 Joyce [facility] Respiratory rate 2023-06-10 17:22:00 28 /min [facility] Body height 2023-06-10 17:22:00 172.7 cm [facility] Body weight 2023-06-10 17:22:00 58.06 kg [facility] BMI 2023-06-10 17:22:00 19.46 kg/m2 [facility] Oxygen saturation in Arterial blood by Pulse oximetry 2023-06-10 17:22:00 97 /min 4 L [facility] Systolic blood pressure 2023-06-07 16:55:00 148 mm[Hg] [facility] Diastolic blood pressure 2023-06-07 16:55:00 87 mm[Hg] [facility] Heart rate 2023-06-07 16:54:00 67 /min [facility] Body temperature 2023-06-07 16:54:00 35.56 Joyce [facility] Respiratory rate 2023-06-07 16:54:00 18 /min [facility] Body height 2023-06-07 16:54:00 172.7 cm [facility] Body weight 2023-06-07 16:54:00 55.792 kg [facility] BMI 2023-06-07 16:54:00 18.70 kg/m2 [facility] Oxygen saturation in Arterial blood by Pulse oximetry 2023-06-07 16:54:00 95 /min [facility] Systolic blood pressure 2023-06-02 17:03:00 170 mm[Hg] Patient denies s/s of coronary distress [facility] Diastolic blood pressure 2023-06-02 17:03:00 72 mm[Hg] Patient denies s/s of coronary distress [facility] Heart rate 2023-06-02 16:54:00 67 /min [facility] Body temperature 2023-06-02 16:54:00 36.78 Joyce [facility] Respiratory rate 2023-06-02 16:54:00 20 /min [facility] Body height 2023-06-02 16:54:00 172.7 cm [facility] Body weight 2023-06-02 16:54:00 55.792 kg [facility] BMI 2023-06-02 16:54:00 18.70 kg/m2 [facility] Oxygen saturation in Arterial blood by Pulse oximetry 2023-06-02 16:54:00 96 /min [facility] Body temperature 2023-05-24 16:23:00 35.89 Joyce [facility] Body weight 2023-05-24 16:23:00 55.792 kg [facility] BMI 2023-05-24 16:23:00 18.70 kg/m2 [facility] Systolic blood pressure 2023-03-28 16:57:00 171 mm[Hg] [facility] Diastolic blood pressure 2023-03-28 16:57:00 91 mm[Hg] [facility] Heart rate 2023-03-28 16:57:00 75 /min [facility] Body temperature 2023-03-28 16:54:00 36.67 Joyce [facility] Body height 2023-03-28 16:54:00 172.7 cm [facility] Body weight 2023-03-28 16:54:00 57.607 kg [facility] BMI 2023-03-28 16:54:00 19.31 kg/m2 [facility] Oxygen saturation in Arterial blood by Pulse oximetry 2023-03-28 16:54:00 90 /min [facility] Systolic blood pressure 2023-03-07 20:46:00 179 mm[Hg] Checked by Carmen MAURER [facility] Diastolic blood pressure 2023-03-07 20:46:00 90 mm[Hg] Checked by Carmen MAURER [facility] Heart rate 2023-03-07 20:46:00 93 /min [facility] Oxygen saturation in Arterial blood by Pulse oximetry 2023-03-07 20:26:00 91 /min Pt is on 3L of oxygen [facility] Body temperature 2023-03-07 20:25:00 35.72 Joyce [facility] Respiratory rate 2023-03-07 20:25:00 18 /min [facility] Body weight 2023-03-07 20:25:00 57.652 kg [facility] BMI 2023-03-07 20:25:00 19.33 kg/m2 [facility] Body weight 2023-03-07 16:17:00 58.514 kg [facility] BMI 2023-03-07 16:17:00 19.62 kg/m2 [facility] Systolic blood pressure 2023-02-15 20:00:00 141 mm[Hg] [facility] Diastolic blood pressure 2023-02-15 20:00:00 78 mm[Hg] [facility] Respiratory rate 2023-02-15 20:00:00 20 /min [facility] Oxygen saturation in Arterial blood by Pulse oximetry 2023-02-15 20:00:00 97 /min [facility] Heart rate 2023-02-15 15:49:00 75 /min [facility] Body height 2023-02-15 15:48:00 172.7 cm [facility] Body weight 2023-02-15 15:48:00 58.9 kg [facility] BMI 2023-02-15 15:48:00 19.75 kg/m2 [facility] Systolic blood pressure 2023-02-11 13:10:00 135 mm[Hg] [facility] Diastolic blood pressure 2023-02-11 13:10:00 69 mm[Hg] [facility] Heart rate 2023-02-11 13:10:00 63 /min [facility] Body temperature 2023-02-11 13:10:00 35.83 Joyce [facility] Respiratory rate 2023-02-11 13:10:00 18 /min [facility] Body height 2023-02-11 13:10:00 172.7 cm [facility] Body weight 2023-02-11 13:10:00 58.877 kg [facility] BMI 2023-02-11 13:10:00 19.74 kg/m2 [facility] Oxygen saturation in Arterial blood by Pulse oximetry 2023-02-11 13:10:00 97 /min 3L [facility] Systolic blood pressure 2023-01-31 19:02:00 148 mm[Hg] [facility] Diastolic blood pressure 2023-01-31 19:02:00 90 mm[Hg] [facility] Heart rate 2023-01-31 18:32:00 79 /min [facility] Body temperature 2023-01-31 18:32:00 36.5 Joyce [facility] Respiratory rate 2023-01-31 18:32:00 16 /min [facility] Body height 2023-01-31 18:32:00 172.7 cm [facility] Body weight 2023-01-31 18:32:00 58.514 kg [facility] BMI 2023-01-31 18:32:00 19.61 kg/m2 [facility] Oxygen saturation in Arterial blood by Pulse oximetry 2023-01-31 18:32:00 88 /min [facility] Heart rate 2023-01-25 16:57:00 89 /min [facility] Oxygen saturation in Arterial blood by Pulse oximetry 2023-01-25 16:57:00 98 /min [facility] Systolic blood pressure 2023-01-25 16:54:00 124 mm[Hg] [facility] Diastolic blood pressure 2023-01-25 16:54:00 77 mm[Hg] [facility] Body height 2023-01-25 16:12:00 172.7 cm [facility] Body weight 2023-01-25 16:12:00 59.875 kg [facility] BMI 2023-01-25 16:12:00 20.07 kg/m2 [facility] Body weight 2023-01-24 16:07:00 59.875 kg [facility] BMI 2023-01-24 16:07:00 20.07 kg/m2 [facility] Systolic blood pressure 2023-01-21 15:25:00 118 mm[Hg] [facility] Diastolic blood pressure 2023-01-21 15:25:00 78 mm[Hg] [facility] Heart rate 2023-01-21 15:25:00 77 /min [facility] Body temperature 2023-01-21 15:25:00 36.28 Joyce [facility] Respiratory rate 2023-01-21 15:25:00 22 /min [facility] Body height 2023-01-21 15:25:00 172.7 cm [facility] Body weight 2023-01-21 15:25:00 60.238 kg [facility] BMI 2023-01-21 15:25:00 20.19 kg/m2 [facility] Oxygen saturation in Arterial blood by Pulse oximetry 2023-01-21 15:25:00 90 /min 3 L [facility] Systolic blood pressure 2023-01-11 18:06:00 135 mm[Hg] provider notified Dr. Espinal [facility] Diastolic blood pressure 2023-01-11 18:06:00 92 mm[Hg] provider notified Dr. Espinal [facility] Heart rate 2023-01-11 18:06:00 73 /min [facility] Respiratory rate 2023-01-11 18:06:00 20 /min [facility] Oxygen saturation in Arterial blood by Pulse oximetry 2023-01-11 18:06:00 94 /min [facility] Body temperature 2023-01-11 18:03:00 36.11 Joyce [facility] Body height 2023-01-11 18:03:00 176.8 cm [facility] Body weight 2023-01-11 18:03:00 59.829 kg [facility] BMI 2023-01-11 18:03:00 19.14 kg/m2 [facility] Systolic blood pressure 2022-12-22 16:04:00 143 mm[Hg] [facility] Diastolic blood pressure 2022-12-22 16:04:00 90 mm[Hg] [facility] Heart rate 2022-12-22 16:04:00 77 /min [facility] Body temperature 2022-12-22 16:01:00 36.56 Joyce [facility] Body height 2022-12-22 16:01:00 172.7 cm [facility] Body weight 2022-12-22 16:01:00 60.328 kg [facility] BMI 2022-12-22 16:01:00 20.22 kg/m2 [facility] Oxygen saturation in Arterial blood by Pulse oximetry 2022-12-22 16:01:00 92 /min [facility] Body weight 2022-12-16 15:41:00 60.328 kg [facility] BMI 2022-12-16 15:41:00 20.22 kg/m2 [facility] Systolic blood pressure 2022-12-15 20:09:00 175 mm[Hg] [facility] Diastolic blood pressure 2022-12-15 20:09:00 89 mm[Hg] [facility] Heart rate 2022-12-15 20:09:00 86 /min [facility] Respiratory rate 2022-12-15 20:09:00 19 /min [facility] Body height 2022-12-15 20:09:00 172.7 cm [facility] Body weight 2022-12-15 20:09:00 60.555 kg [facility] BMI 2022-12-15 20:09:00 20.30 kg/m2 [facility] Oxygen saturation in Arterial blood by Pulse oximetry 2022-12-15 20:09:00 91 /min [facility] Systolic blood pressure 2022-11-15 17:57:00 139 mm[Hg] [facility] Diastolic blood pressure 2022-11-15 17:57:00 82 mm[Hg] [facility] Heart rate 2022-11-15 17:57:00 90 /min [facility] Body temperature 2022-11-15 17:57:00 36.61 Joyce [facility] Respiratory rate 2022-11-15 17:57:00 18 /min [facility] Oxygen saturation in Arterial blood by Pulse oximetry 2022-11-15 17:57:00 90 /min [facility] Body weight 2022-11-12 10:02:00 60.328 kg [facility] BMI 2022-11-12 10:02:00 20.22 kg/m2 [facility] Body height 2022-11-02 01:00:00 172.7 cm [facility] Body weight 2022-11-01 16:00:00 62.143 kg [facility] BMI 2022-11-01 16:00:00 20.83 kg/m2 [facility] Systolic blood pressure 2022-10-19 19:32:00 150 mm[Hg] [facility] Diastolic blood pressure 2022-10-19 19:32:00 70 mm[Hg] [facility] Heart rate 2022-10-19 19:32:00 80 /min [facility] Body temperature 2022-10-19 19:27:00 36.67 Joyce [facility] Respiratory rate 2022-10-19 19:27:00 19 /min [facility] Body height 2022-10-19 19:27:00 172.7 cm [facility] Body weight 2022-10-19 19:27:00 62.551 kg [facility] BMI 2022-10-19 19:27:00 20.97 kg/m2 [facility] Oxygen saturation in Arterial blood by Pulse oximetry 2022-10-19 19:27:00 92 /min [facility] Body weight 2022-09-30 18:37:00 65.772 kg [facility] BMI 2022-09-30 18:37:00 22.05 kg/m2 [facility] Systolic blood pressure 2022-09-30 16:25:00 174 mm[Hg] [facility] Diastolic blood pressure 2022-09-30 16:25:00 93 mm[Hg] [facility] Heart rate 2022-09-30 16:22:00 89 /min [facility] Body temperature 2022-09-30 16:22:00 36.89 Joyce [facility] Respiratory rate 2022-09-30 16:22:00 24 /min [facility] Body height 2022-09-30 16:22:00 172.7 cm [facility] Body weight 2022-09-30 16:22:00 66.134 kg [facility] BMI 2022-09-30 16:22:00 22.17 kg/m2 [facility] Oxygen saturation in Arterial blood by Pulse oximetry 2022-09-30 16:22:00 91 /min pt has COPD not oxygent dependent [facility] Body weight 2022-09-02 18:18:00 65.772 kg [facility] BMI 2022-09-02 18:18:00 22.05 kg/m2 [facility] Systolic blood pressure 2022-08-30 17:09:00 179 mm[Hg] RN re took BP and o2 sat per Rukhsana DIAZ [facility] Diastolic blood pressure 2022-08-30 17:09:00 90 mm[Hg] RN re took BP and o2 sat per Rukhsana DIAZ [facility] Heart rate 2022-08-30 17:09:00 72 /min [facility] Oxygen saturation in Arterial blood by Pulse oximetry 2022-08-30 17:09:00 92 /min [facility] Body temperature 2022-08-30 16:14:00 36.17 [facility] Respiratory rate 2022-08-30 16:14:00 21 /min Nurse Carmen notified. [facility] Body height 2022-08-30 16:14:00 172.7 cm [facility] Body weight 2022-08-30 16:14:00 65.998 kg [facility] BMI 2022-08-30 16:14:00 22.12 kg/m2 [facility] Body weight 2022-08-26 14:57:00 65.772 kg [facility] BMI 2022-08-26 14:57:00 22.05 kg/m2 [facility] Systolic blood pressure 2022-08-12 15:36:00 170 mm[Hg] [facility] Diastolic blood pressure 2022-08-12 15:36:00 84 mm[Hg] [facility] Heart rate 2022-08-12 15:36:00 71 /min [facility] Body temperature 2022-08-12 15:35:00 36.11 [facility] Respiratory rate 2022-08-12 15:35:00 18 /min [facility] Body height 2022-08-12 15:35:00 172.7 cm [facility] Body weight 2022-08-12 15:35:00 65.908 kg [facility] BMI 2022-08-12 15:35:00 22.09 kg/m2 [facility] Oxygen saturation in Arterial blood by Pulse oximetry 2022-08-12 15:35:00 93 /min room air [facility] Systolic blood pressure 2022-07-08 14:19:00 188 mm[Hg] [facility] Diastolic blood pressure 2022-07-08 14:19:00 95 mm[Hg] [facility] Heart rate 2022-07-08 14:16:00 79 /min [facility] Body temperature 2022-07-08 14:16:00 36.06 [facility] Respiratory rate 2022-07-08 14:16:00 16 /min [facility] Body height 2022-07-08 14:16:00 172.7 cm [facility] Body weight 2022-07-08 14:16:00 66.134 kg [facility] BMI 2022-07-08 14:16:00 22.17 kg/m2 [facility] Oxygen saturation in Arterial blood by Pulse oximetry 2022-07-08 14:16:00 92 /min [facility] Body weight 2022-06-24 19:50:00 66.679 kg [facility] BMI 2022-06-24 19:50:00 22.35 kg/m2 [facility] Systolic blood pressure 2022-06-24 16:24:00 162 mm[Hg] [facility] Diastolic blood pressure 2022-06-24 16:24:00 74 mm[Hg] [facility] Heart rate 2022-06-24 16:24:00 86 /min [facility] Body temperature 2022-06-24 16:19:00 36.56 [facility] Body height 2022-06-24 16:19:00 172.7 cm [facility] Body weight 2022-06-24 16:19:00 66.815 kg [facility] BMI 2022-06-24 16:19:00 22.40 kg/m2 [facility] Oxygen saturation in Arterial blood by Pulse oximetry 2022-06-24 16:19:00 94 /min [facility] Systolic blood pressure 2022-06-11 18:23:00 173 mm[Hg] [facility] Diastolic blood pressure 2022-06-11 18:23:00 94 mm[Hg] [facility] Heart rate 2022-06-11 18:23:00 74 /min [facility] Body temperature 2022-06-11 17:28:00 36.11 [facility] Respiratory rate 2022-06-11 17:28:00 20 /min [facility] Oxygen saturation in Arterial blood by Pulse oximetry 2022-06-11 17:28:00 92 /min [facility] Body weight 2022-06-11 09:25:00 65.998 kg [facility] BMI 2022-06-11 09:25:00 22.12 kg/m2 [facility] Body height 2022-06-10 03:06:00 172.7 cm [facility] Systolic blood pressure 2022-06-03 17:55:00 187 mm[Hg] [facility] Diastolic blood pressure 2022-06-03 17:55:00 101 mm[Hg] [facility] Heart rate 2022-06-03 17:55:00 76 /min [facility] Body temperature 2022-06-03 17:50:00 36.44 [facility] Respiratory rate 2022-06-03 17:50:00 20 /min [facility] Body height 2022-06-03 17:50:00 172.7 cm [facility] Body weight 2022-06-03 17:50:00 66.679 kg [facility] BMI 2022-06-03 17:50:00 22.35 kg/m2 [facility] Systolic blood pressure 2022-05-31 18:26:00 158 mm[Hg] [facility] Diastolic blood pressure 2022-05-31 18:26:00 75 mm[Hg] [facility] Heart rate 2022-05-31 18:05:00 73 /min [facility] Body temperature 2022-05-31 18:05:00 36.28 [facility] Respiratory rate 2022-05-31 18:05:00 19 /min [facility] Body height 2022-05-31 18:05:00 172.7 cm [facility] Body weight 2022-05-31 18:05:00 66.769 kg [facility] BMI 2022-05-31 18:05:00 22.38 kg/m2 [facility] Oxygen saturation in Arterial blood by Pulse oximetry 2022-05-31 18:05:00 94 /min [facility] Systolic blood pressure 2022-05-25 19:45:00 177 mm[Hg] [facility] Diastolic blood pressure 2022-05-25 19:45:00 94 mm[Hg] [facility] Heart rate 2022-05-25 19:45:00 74 /min [facility] Body temperature 2022-05-25 19:45:00 36.67 [facility] Body weight 2022-05-25 19:45:00 67.994 kg [facility] BMI 2022-05-25 19:45:00 22.79 kg/m2 [facility] Body weight 2022-05-06 16:43:00 66.225 kg [facility] BMI 2022-05-06 16:43:00 22.20 kg/m2 [facility] Systolic blood pressure 2022-04-28 20:05:00 139 mm[Hg] [facility] Diastolic blood pressure 2022-04-28 20:05:00 67 mm[Hg] [facility] Heart rate 2022-04-28 20:05:00 85 /min [facility] Body temperature 2022-04-28 20:05:00 36.11 [facility] Body height 2022-04-28 20:05:00 172.7 cm [facility] Body weight 2022-04-28 20:05:00 66.316 kg [facility] BMI 2022-04-28 20:05:00 22.23 kg/m2 [facility] Oxygen saturation in Arterial blood by Pulse oximetry 2022-04-28 20:05:00 90 /min [facility] Systolic blood pressure 2022-04-15 15:55:00 190 mm[Hg] [facility] Diastolic blood pressure 2022-04-15 15:55:00 86 mm[Hg] [facility] Heart rate 2022-04-15 15:49:00 63 /min [facility] Body temperature 2022-04-15 15:49:00 36.5 [facility] Body height 2022-04-15 15:49:00 172.7 cm [facility] Body weight 2022-04-15 15:49:00 66.769 kg [facility] BMI 2022-04-15 15:49:00 22.38 kg/m2 [facility] Oxygen saturation in Arterial blood by Pulse oximetry 2022-04-15 15:49:00 94 /min [facility] Body weight 2022-04-08 18:09:00 64.864 kg [facility] BMI 2022-04-08 18:09:00 21.74 kg/m2 [facility] Systolic blood pressure 2022-03-17 15:54:00 179 mm[Hg] [facility] Diastolic blood pressure 2022-03-17 15:54:00 78 mm[Hg] [facility] Heart rate 2022-03-17 15:54:00 88 /min [facility] Body temperature 2022-03-17 15:54:00 36.39 [facility] Respiratory rate 2022-03-17 15:54:00 18 /min [facility] Body height 2022-03-17 15:54:00 172.7 cm [facility] Body weight 2022-03-17 15:54:00 64.91 kg [facility] BMI 2022-03-17 15:54:00 21.76 kg/m2 [facility] Body weight 2022-03-11 19:59:00 66.225 kg [facility] BMI 2022-03-11 19:59:00 22.20 kg/m2 [facility] Systolic blood pressure 2022-03-04 15:47:00 176 mm[Hg] [facility] Diastolic blood pressure 2022-03-04 15:47:00 76 mm[Hg] [facility] Heart rate 2022-03-04 15:47:00 66 /min [facility] Body temperature 2022-03-04 15:47:00 36.28 [facility] Respiratory rate 2022-03-04 15:47:00 18 /min [facility] Body height 2022-03-04 15:47:00 172.7 cm [facility] Body weight 2022-03-04 15:47:00 66.225 kg [facility] BMI 2022-03-04 15:47:00 22.20 kg/m2 [facility] Oxygen saturation in Arterial blood by Pulse oximetry 2022-03-04 15:47:00 93 /min [facility] Body weight 2022-02-25 19:04:00 65.772 kg [facility] BMI 2022-02-25 19:04:00 22.05 kg/m2 [facility] Body weight 2022-01-28 18:45:00 65.772 kg [facility] BMI 2022-01-28 18:45:00 22.05 kg/m2 [facility] Systolic blood pressure 2022-01-05 18:45:00 161 mm[Hg] [facility] Diastolic blood pressure 2022-01-05 18:45:00 78 mm[Hg] [facility] Heart rate 2022-01-05 18:45:00 68 /min [facility] Body temperature 2022-01-05 18:45:00 37 [facility] Respiratory rate 2022-01-05 18:45:00 16 /min [facility] Body weight 2022-01-05 18:45:00 65.772 kg [facility] BMI 2022-01-05 18:45:00 22.05 kg/m2 [facility] Procedures Procedure Date / Time Performed Performing Clinician Source CT ABDOMEN PELVIS WO CONTRAST 2023-09-07 21:21:17 Tomas Martin [facility] URINALYSIS 2023-09-07 20:42:00 Tomas Martin [facility] GALV ONLY - INFLUENZA A B RSV PCR 2023-06-10 18:24:00 Kyara Brothers [facility] XR CHEST 1 VW 2023-06-10 17:55:[address] [facility] TROPONIN I 2023-06-10 17:51:00 Kyara Brothers [facility] COMP. METABOLIC PANEL ([id number]) 2023-06-10 17:51:00 Kyara Brothers [facility] CBC WITH DIFF 2023-06-10 17:51:[address] [facility] D-DIMER 2023-06-10 17:51:00 Kyara Brothers Un [facility] N-TERMINAL PRO-BNP 2023-06-10 17:51:00 Kyara Brothers [facility] EXTRA TUBE DK. GREEN 2023-06-10 17:51:00 Cat Simpson [facility] COVID-19 (ID NOW RAPID TESTING) 2023-06-10 17:51:00 Kyara Brothers [facility] CAROTID DUPLEX BILATERAL - BY VASCULAR LAB 2023-06-02 16:43:00 Joe Tellez [facility] AORTOILIAC DUPLEX - BY VASCULAR LAB 2023-06-02 16:40:31 Joe Tellez [facility] XR HIPS 2 VW LEFT 2023-03-28 18:06:37 Mimi Blakely [facility] FLU VACC([id number]),65+YR,0.5 ML,IM,ADJUVANTED,QUAD(FLUA D) 2023-03-28 16:55:27 Mimi Blakely [facility] INTRAVITREAL INJECTION, PHARMACOLOGIC AGENT - OS - LEFT EYE 2023-03-07 17:03:21 Abner Otero [facility] OCT, RETINA - OU - BOTH EYES 2023-03-07 17:02:57 Abner Otero [facility] DISCLOSURE AND CONSENT, MEDICAL AND SURGICAL PROCEDURES 2023-03-07 06:01:00 Doctor Unassigned, [place] [facility] CARDIAC CATHETERIZATION 2023-02-15 16:40:06 Virgilio [facility] CARDIAC CATHETERIZATION 2023-02-15 16:40:06 Virgilio [facility] CARDIAC CATHETERIZATION 2023-02-15 16:40:06 Virgilio [facility] CARDIAC CATHETERIZATION 2023-02-15 16:40:06 Virgilio [facility] CATH PROCEDURE LOG 2023-02-15 15:59:02 [facility] 2023-02-15 15:59:02 Michael Nunez Un [facility] OUTPATIENT CARDIAC CATHETERIZATION DOCUMENTS 2023-02-15 05:01:00 Doctor Unassigned, [place] [facility] COMPLETE ECHOCARDIOGRAM DOBUTAMINE STRESS TEST WO CONTRAST 2023-01-25 17:37:00 Jm Espinal [facility] INTRAVITREAL INJECTION, PHARMACOLOGIC AGENT - OS - LEFT EYE 2023-01-24 17:33:06 Abner Otero [facility] OCT, RETINA - OU - BOTH EYES 2023-01-24 17:32:21 Abner Otero [facility] DISCLOSURE AND CONSENT, MEDICAL AND SURGICAL PROCEDURES 2023-01-24 05:01:00 Doctor Unassigned, [place] [facility] PULMONARY FUNCTION TEST (RESULTS) 2023-01-04 16:03:05 Doctor Unassigned, [place] [facility] PNEUMOCOCCAL 20 CONJUGATE (PREVNAR 20) VACCINE 2022-12-22 16:54:45 Mimi Blakely [facility] DISABILITY/FMLA 2022-12-22 05:01:00 Doctor Unass igned, [place] [facility] INTRAVITREAL INJECTION, PHARMACOLOGIC AGENT - OS - LEFT EYE 2022-12-16 17:13:43 Abner Otero [facility] OCT, RETINA - OU - BOTH EYES 2022-12-16 17:12:43 Abner Otero [facility] INSURANCE CORRESPONDENCE 2022-12-13 05:01:00 Doc tor Unassigned, [place] [facility] BASIC METABOLIC PANEL (NA, K, CL, CO2, GLUCOSE, BUN, CREATININE, CA) 2022-11-15 08:46:00 Veronica Brewer [facility] CBC WITH DIFF 2022-11-15 08:46:00 Veronica Brewer [facility] BASIC METABOLIC PANEL (NA, K, CL, CO2, GLUCOSE, BUN, CREATININE, CA) 2022-11-13 09:25:00 Breana [facility] CBC WITH DIFF 2022-11-13 09:25:00 Breana [facility] BASIC METABOLIC PANEL (NA, K, CL, CO2, GLUCOSE, BUN, CREATININE, CA) 2022-11-12 10:02:00 Milo Sinha [facility] CBC WITH DIFF 2022-11-12 10:02:00 Milo Sinha [facility] BASIC METABOLIC PANEL (NA, K, CL, CO2, GLUCOSE, BUN, CREATININE, CA) 2022-11-11 08:43:00 Milo Sinha [facility] BASIC METABOLIC PANEL (NA, K, CL, CO2, GLUCOSE, BUN, CREATININE, CA) 2022-11-10 09:56:00 Milo Sinha [facility] BASIC METABOLIC PANEL (NA, K, CL, CO2, GLUCOSE, BUN, CREATININE, CA) 2022-11-09 08:47:00 Milo Sinha [facility] CBC WITH DIFF 2022-11-09 08:47:00 Milo Sinha Un [facility] MAGNESIUM 2022-11-08 09:59:00 Milo Sinha [facility] BASIC METABOLIC PANEL (NA, K, CL, CO2, GLUCOSE, BUN, CREATININE, CA) 2022-11-08 09:59:00 Milo Sinha [facility] CBC WITH DIFF 2022-11-08 09:59:00 Milo Sinha [facility] BASIC METABOLIC PANEL (NA, K, CL, CO2, GLUCOSE, BUN, CREATININE, CA) 2022-11-05 10:46:00 Milo Sinha [facility] CBC WITH DIFF 2022-11-05 10:46:00 Milo Sinha [facility] BASIC METABOLIC PANEL (NA, K, CL, CO2, GLUCOSE, BUN, CREATININE, CA) 2022-11-04 09:59:00 Veronica Brewer [facility] CBC WITH DIFF 2022-11-04 09:59:00 Veronica Brewer [facility] BASIC METABOLIC PANEL (NA, K, CL, CO2, GLUCOSE, BUN, CREATININE, CA) 2022-11-03 10:10:00 Veronica Brewer [facility] CBC WITH DIFF 2022-11-03 10:10:00 Veronica Brewer [facility] PROCALCITONIN 2022-11-02 07:10:00 Elidia Solomon [facility] XR CHEST 1 VW 2022-11-01 21:01:33 Avi Myers [facility] LIPASE 2022-11-01 20:21:00 Lucia [facility] TROPONIN I 2022-11-01 20:21:00 [facility] COMP. METABOLIC PANEL ([id number]) 2022-11-01 20:21:00 Lucia Avi [facility] CBC WITH DIFF 2022-11-01 20:21:00 Avi Myers [facility] N-TERMINAL PRO-BNP 2022-11-01 20:21:00 Avi Myers [facility] HB ECG ROUTINE & RHYTHM STRIP 2022-11-01 20:16:37 Avi Myers [facility] CONSENT/REFUSAL FOR DIAGNOSIS AND TREATMENT 2022-11-01 20:01:55 Doctor Unassigned, [place] [facility] INTRAVITREAL INJECTION, PHARMACOLOGIC AGENT - OS - LEFT EYE 2022-11-01 17:13:42 Branden pranav [facility] OCT, RETINA - OU - BOTH EYES 2022-11-01 17:13:23 Abner Otero [facility] DISCLOSURE AND CONSENT, MEDICAL AND SURGICAL PROCEDURES 2022-11-01 05:01:00 Doctor Unassigned, [place] [facility] OCT, RETINA - OU - BOTH EYES 2022-09-30 18:55:04 Quinn Damon [facility] INTRAVITREAL INJECTION, PHARMACOLOGIC AGENT - OS - LEFT EYE 2022-09-30 18:54:13 Quinn Damon [facility] ADV BENEFICIARY NOTICE OF NONCOVERAGE (ABN) 2022-09-30 05:01:00 Doctor Unassigned, [place] [facility] INSURANCE CORRESPONDENCE 2022-09-08 05:01:00 Doc richie Unassigned, [place] [facility] INTRAVITREAL INJECTION, PHARMACOLOGIC AGENT - OS - LEFT EYE 2022-09-02 18:51:22 Quinn Damon [facility] INSURANCE CORRESPONDENCE 2022-08-27 05:01:00 Doc tor Unassigned, [place] [facility] OCT, RETINA - OU - BOTH EYES 2022-08-26 16:07:19 Quinn Damon [facility] OU SPECTRALIS OCT MACULA, BOTH EYES 2022-07-29 00:00:00 Diana Perez [facility] ASSIGNMENT OF BENEFITS 2022-07-08 14:03:54 Docto r Unassigned, [place] [facility] OU SPECTRALIS OCT MACULA, BOTH EYES 2022-06-24 00:00:00 Diana Perez [facility] BASIC METABOLIC PANEL (NA, K, CL, CO2, GLUCOSE, BUN, CREATININE, CA) 2022-06-10 11:22:00 Devante Villa [facility] CBC WITH DIFF 2022-06-10 09:59:00 Allen [facility] RAPID INFLUENZA A/B 2022-06-10 04:15:00 [facility] (NA, K, CL, CO2, GLUCOSE, BUN, CREATININE, CA) 2022-06-10 02:29:00 Lynsey Bell [facility] CBC WITH DIFF 2022-06-10 00:39:00 Lynsey Bell [facility] CT CHEST PULMONARY ANGIOGRAM 2022-06-09 23:15:00 Arabella [facility] D-DIMER 2022-06-09 20:43:00 Lynsey Bell [facility] HB ECG ROUTINE & RHYTHM STRIP 2022-06-09 20:39:11 Lynsey Bell [facility] TROPONIN I 2022-06-09 20:32:00 Arabella [facility] N-TERMINAL PRO-BNP 2022-06-09 20:32:00 Tono Bell [facility] XR RIBS 4+ VW RIGHT 2022-06-09 20:07:39 Troy Bell [facility] CONSENT/REFUSAL FOR DIAGNOSIS AND TREATMENT 2022-06-09 19:02:32 Doctor Unassigned, [place] [facility] CT ABDOMEN PELVIS W CONTRAST 2022-05-24 17:52:35 Lloyd Loza Rp [facility] DISCLOSURE AND CONSENT, MEDICAL AND SURGICAL PROCEDURES 2022-05-06 06:01:00 Doctor Unassigned, [place] [facility] OU SPECTRALIS OCT MACULA, BOTH EYES 2022-05-06 00:00:00 Quinn Damon [facility] TRANSTHORACIC ECHO (TTE) COMPLETE 2022-04-15 17:17:15 Elissa Campos [facility] ADV BENEFICIARY NOTICE OF NONCOVERAGE (ABN) 2022-04-08 06:01:00 Doctor Unassigned, [place] [facility] OU SPECTRALIS OCT MACULA, BOTH EYES 2022-04-08 00:00:00 Quinn Damon [facility] CT HEAD WO CONTRAST 2022-03-17 21:40:[address] [facility] ADV BENEFICIARY NOTICE OF NONCOVERAGE (ABN) 2022-03-11 06:01:00 Doctor Unassigned, [place] [facility] OU SPECTRALIS OCT MACULA, BOTH EYES 2022-02-25 00:00:00 Almaz Toscano [facility] MEDICAL RELEASE/CLEARANCE FORMS 2022-02-12 05:01:00 Doctor Unassigned, [place] [facility] OU SPECTRALIS OCT MACULA, BOTH EYES 2022-01-28 00:00:00 Quinn Damon [facility] Encounters Start Date/Time End Date/Time Encounter Type Admission Type Attending Clinicians Care Facility Care Department Encounter ID Source 2021-03-02 01:46:58 Outpatient MATTHEW CANCINO [facility] OPH [id number] [facility] 2021-02-28 09:03:56 Outpatient JACOB MAO [facility] [id number] [facility] 2021-02-28 04:18:18 Inpatient JACOB MAO [facility] [id number] [facility] 2021-02-27 00:04:52 Outpatient JACOB MAO [facility] [id number] [facility] 2023-11-28 09:30:00 2023-11-28 09:30:00 Outpatient MIMI MORAES [facility] [id number] [facility] 2023-10-25 00:00:00 2023-10-25 11:46:34 Patient Outreach Mita Ngo [facility] [id number] 350.1.13.10 4.2.7.2.686 [id number] [facility] 2023-10-24 00:00:00 2023-10-25 10:25:[address] [facility] [id number] 350.1.13.10 4.2.7.2.686 [id number] [facility] 2020-03-08 00:00:00 2023-10-18 02:22:00 Mobile Device Encounter Gibran Chappell [facility] [id number] 350.1.13.10 4.2.7.2.686 [id number] [facility] 2023-10-17 00:00:00 2023-10-17 00:00:00 Telephone [facility] [id number] 350.1.13.10 4.2.7.2.686 [id number] [facility] 2023-10-12 00:00:00 2023-10-13 13:25:32 Telephone [facility] [id number] 350.1.13.10 4.2.7.2.686 [id number] [facility] 2023-10-06 13:40:00 2023-10-06 14:00:00 Telemedici ne Visit [facility] [id number] 350.1.13.10 4.2.7.2.686 [id number] [facility] 2023-10-06 13:40:00 2023-10-06 13:40:00 Outpatient R MP [facility] [id number] [facility] 2023-10-04 00:00:00 2023-10-04 08:15:54 Refill [facility] [id number] 350.1.13.10 4.2.7.2.686 [id number] [facility] 2023-10-03 00:00:00 2023-10-03 13:19:[address] [facility] [id number] 350.1.13.10 4.2.7.2.686 [id number] [facility] 2023-10-03 00:00:00 2023-10-03 13:09:[address] [facility] [id number] 350.1.13.10 4.2.7.2.686 [id number] [facility] 2023-09-29 00:00:00 2023-09-30 15:33:[address] [facility] [id number] 350.1.13.10 4.2.7.2.686 [id number] [facility] 2023-09-27 00:00:00 2023-09-27 18:45:37 Telephone [facility] [id number] 350.1.13.10 4.2.7.2.686 [id number] [facility] 2023-09-16 13:00:00 2023-09-16 13:00:00 Outpatient SAMMY YOST [facility] [id number] [facility] 2023-09-15 00:00:00 2023-09-15 16:34:06 Telephone Graciela Durand [facility]ILLION [id number] 350.1.13.10 4.2.7.2.686 [id number] [facility] 2023-09-08 11:23:00 2023-09-08 15:00:00 Emergency X LYNSEY BELL [facility] ERT [id number] [facility] 2023-09-08 11:23:00 2023-09-08 15:00:00 Emergency [facility] 1.2.840.114 350.1.13.10 4.2.7.2.686 [id number] [facility] 2023-09-08 00:00:00 2023-09-08 11:30:26 Telephone Lloyd Loza [facility] 1.2.840.114 350.1.13.10 4.2.7.2.686 [id number] [facility] 2023-09-07 14:06:00 2023-09-07 18:25:00 Emergency X TOMAS MARTIN [facility] ERT [id number] [facility] 2023-09-07 14:06:00 2023-09-07 18:25:00 Emergency Tomas Martin [facility] 1.2.840.114 350.1.13.10 4.2.7.2.686 [id number] [facility] 2023-09-07 00:00:00 2023-09-07 12:18:09 Telephone Lloyd Loza [facility] 1.2.840.114 350.1.13.10 4.2.7.2.686 [id number] [facility] 2023-09-05 00:00:00 2023-09-05 14:13:28 Telephone Graciela Durand [facility] 1.2.840.114 350.1.13.10 4.2.7.2.686 [id number] [facility] 2023-09-05 00:00:00 2023-09-05 11:48:11 Telephone Graciela Durand [facility] [id number] 350.1.13.10 4.2.7.2.686 [id number] [facility] 2023-09-02 00:00:00 2023-09-02 00:00:00 Telephone Graciela Durand [facility] 1.2.840.114 350.1.13.10 4.2.7.2.686 [id number] [facility] 2023-08-30 09:30:00 2023-08-30 09:30:00 Outpatient R [facility] [id number] [facility] 2023-08-19 00:00:00 2023-08-19 00:00:00 Telephone Fellow, Pulmonary [facility] 1.2840.114 350.1.13.10 4.2.7.2.686 [id number] 084 [id number] [facility] 2023-08-15 13:00:00 2023-08-15 13:00:00 Outpatient R LLOYD LOZA [facility] [id number] [facility] 2023-08-15 00:00:00 2023-08-15 00:00:00 Telephone Lloyd Loza Rp CORNELIOBRENT Neisha [facility]ON 1.2.840.114 350.1.13.10 4.2.7.2.686 [id number] 080 [id number] [facility] 2023-08-11 14:00:00 2023-08-11 14:20:00 Office Visit Mimi Blakely [facility] 1.2.840.114 350.1.13.10 4.2.7.2.686 [id number] 365 [id number] [facility] 2023-08-11 14:00:00 2023-08-11 14:00:00 Outpatient R CECILIA [facility] [id number] [facility] 2023-08-08 11:15:00 2023-08-08 11:15:00 Outpatient R LLOYD LOZA [facility] [id number] [facility] 2023-08-06 00:00:00 2023-08-06 00:00:[address] [facility] 1.2840.114 350.1.13.10 4.2.7.2.686 [id number] 365 [id number] [facility] 2023-08-05 10:30:00 2023-08-05 11:00:00 Office Visit Fellow, Delbert Frias [facility] 1.2840.114 350.1.13.10 4.2.7.2.686 [id number] 084 [id number] [facility] 2023-08-05 10:30:00 2023-08-05 10:30:00 Outpatient R DELBERT TAYLOR [facility] [id number] [facility] 2023-08-05 00:00:00 2023-08-05 00:00:00 Letter (Out) Doctor Unassigned, [place] [facility] 1.2840.114 350.1.13.10 4.2.7.2.686 [id number] 044 [id number] [facility] 2023-07-15 11:00:00 2023-07-15 12:08:32 Outpatient R MP [facility] [id number] [facility] 2023-07-15 11:00:00 2023-07-15 12:08:32 Office Visit Julienlencho [facility] 1.2840.114 350.1.13.10 4.2.7.2.686 [id number] 365 [id number] [facility] 2023-07-13 00:00:00 2023-07-13 00:00:[address] [facility] 1.2840.114 350.1.13.10 4.2.7.2.686 [id number] [facility] 2023-07-12 00:00:00 2023-07-12 00:00:[address] [facility] 1.2.840.114 350.1.13.10 4.2.7.2.686 [id number] 365 [id number] [facility] 2023-07-08 00:00:00 2023-07-08 00:00:[address] [facility] 1.2.840.114 350.1.13.10 4.2.7.2.686 [id number] 365 [id number] [facility] 2023-06-24 00:00:00 2023-06-24 00:00:[address] [facility] 1.2.840.114 350.1.13.10 4.2.7.2.686 [id number] 365 [id number] [facility] 2023-06-16 00:00:00 2023-06-16 00:00:00 Telephone Ramon [facility] 1.2.840.114 350.1.13.10 4.2.7.2.686 [id number] 365 [id number] [facility] 2023-06-14 00:00:00 2023-06-14 00:00:[address] [facility] 1.2.840.114 350.1.13.10 4.2.7.2.686 [id number] 365 [id number] [facility] 2023-06-13 00:00:00 2023-06-13 00:00:00 Refill Ramon [facility] 1.2.840.114 350.1.13.10 4.2.7.2.686 [id number] 365 [id number] [facility] 2023-06-10 11:30:00 2023-06-10 15:09:00 Emergency [facility] 1.2.840.114 350.1.13.10 4.2.7.2.686 [id number] [id number] [facility] 2023-06-10 11:00:00 2023-06-10 13:41:36 Outpatient R CIELO KONG [facility] [id number] [facility] 2023-06-10 11:00:00 2023-06-10 13:41:36 Outpatient R OMA KONGJAYA [facility] ERT [id number] [facility] 2023-06-10 11:00:00 2023-06-10 13:41:36 Office Visit DilanOma wolfjaya [facility] PRIMARY CARE PAVILLION 1.2.840.114 350.1.13.10 4.2.7.2.686 [id number] 086 [id number] [facility] 2023-06-09 00:00:00 2023-06-09 00:00:00 Case Management [facility]TY C[facility] 1.2.840.114 350.1.13.10 4.2.7.2.686 [id number] 365 [id number] [facility] 2023-06-09 00:00:00 2023-06-09 00:00:00 Telephone [facility] 1.2.840.114 350.1.13.10 4.2.7.2.686 [id number] 365 [id number] [facility] 2023-06-08 00:00:00 2023-06-08 00:00:00 Refill [facility] 1.2.840.114 350.1.13.10 4.2.7.2.686 [id number] 365 [id number] [facility] 2023-06-07 11:00:00 2023-06-07 11:30:00 Office Visit Jm Espinal [facility] 1.2840.114 350.1.13.10 4.2.7.2.686 [id number] 059 [id number] [facility] 2023-06-07 11:00:00 2023-06-07 11:00:00 Outpatient R JM ESPINAL AMER [facility] [id number] [facility] 2023-06-03 00:00:00 2023-06-03 00:00:00 Refill Jm Espinal [facility] MED[facility] OFF[facility] BUILDING 1.2840.114 350.1.13.10 4.2.7.2.686 [id number] 059 [id number] [facility] 2023-06-02 09:35:53 2023-06-02 23:59:00 Hospital [facility] 1.2840.114 350.1.13.10 4.2.7.2.686 [id number] [facility] 2023-06-02 09:35:34 2023-06-02 23:59:00 Outpatient R MANUEL TELLEZRIQUE [facility] [id number] [facility] 2023-06-02 09:35:34 2023-06-02 23:59:00 Hospital Encounter Manuel [facility] CLINICS 1.2840.114 350.1.13.10 4.2.7.2.686 [id number] [facility] 2023-06-02 11:30:00 2023-06-02 11:34:51 Office Visit Maunel Tellezrique [facility] 1.2840.114 350.1.13.10 4.2.7.2.686 [id number] [facility] 2023-05-31 00:00:00 2023-05-31 00:00:00 Telephone Greg Jimenez [facility] 1.2.840.114 350.1.13.10 4.2.7.2.686 [id number] [facility] 2023-05-31 00:00:00 2023-05-31 00:00:00 Patient Secure Msg Doctor Unassigned, [place] [facility] 1.2.840.114 350.1.13.10 4.2.7.2.686 [id number] [facility] 2023-05-27 10:40:00 2023-05-27 11:00:00 Telemedici ne Visit Julienluis enrique [facility]TY CARE 1.2.840.114 350.1.13.10 4.2.7.2.686 [id number] [facility] 2023-05-27 10:40:00 2023-05-27 10:40:00 Outpatient R MP [facility] [id number] [facility] 2023-05-25 00:00:00 2023-05-25 00:00:[address] [facility] PRIMARY SPECIALTY CARE 1.2.840.114 350.1.13.10 4.2.7.2.686 [id number] 365 [id number] [facility] 2023-05-24 10:20:00 2023-05-24 12:10:32 Outpatient R GREG JIMENEZ BARDIA [facility] [id number] [facility] 2023-05-24 10:20:00 2023-05-24 12:10:32 Office Visit Greg Jimenez [facility] PRIMARY CARE PAVILLION 1.2.840.114 350.1.13.10 4.2.7.2.686 [id number] [facility] 2023-04-18 09:30:00 2023-04-18 09:30:00 Outpatient R ABNER OTERO [facility] [id number] [facility] 2023-04-03 00:00:00 2023-04-03 00:00:00 Jm Connell [facility] 1.2.840.114 350.1.13.10 4.2.7.2.686 [id number] 059 [id number] [facility] 2023-03-30 00:00:00 2023-03-30 00:00:[address] [facility] SPECIALTY CARE 1.2.840.114 350.1.13.10 4.2.7.2.686 [id number] [facility] 2023-03-30 00:00:00 2023-03-30 00:00:00 Patient Secure Msg Doctor Unassigned, [place] [facility] 1.2.840.114 350.1.13.10 4.2.7.2.686 [id number] 019 [id number] [facility] 2023-03-29 00:00:00 2023-03-29 00:00:[address] [facility]TY [facility]ARE 1.2.840.114 350.1.13.10 4.2.7.2.686 [id number] [facility] 2023-03-28 11:50:00 2023-03-28 23:59:00 Outpatient R MIMI BLAKELY [facility] [id number] [facility] 2023-03-28 11:50:00 2023-03-28 23:59:00 Hospital Encounter Ramonglenn [facility] PR[facility] SPECIALTY CARE 1.2.840.114 350.1.13.10 4.2.7.2.686 [id number] [id number] [facility] 2023-03-28 11:00:00 2023-03-28 11:20:00 Office Visit Mimi Blakely [facility] 1.0.114 350.1.13.10 4.2.7.2.686 [id number] [facility] 2023-03-15 00:00:00 2023-03-15 00:00:00 Telephone Carmen Mesa [facility] MARY BLACK CAMPUSEMELYNIO [facility] BU[facility] 1.0.114 350.1.13.10 4.2.7.2.686 [id number] [facility] 2023-03-07 15:40:00 2023-03-08 09:11:03 Outpatient R LLOYD LOZA [facility] [id number] [facility] 2023-03-07 15:40:00 2023-03-08 09:11:03 Office Visit Lloyd Loza [facility] CLINICS 1.0.114 350.1.13.10 4.2.7.2.686 [id number] 080 [id number] [facility] 2023-03-07 10:15:00 2023-03-07 11:21:08 Imm/Inj Visit Abner Otero [facility] [employer] BLDG. 1.0.114 350.1.13.10 4.2.7.2.686 [id number] [facility] 2023-03-07 00:00:00 2023-03-07 00:00:00 Orders Only Doctor Unassigned, [place] [facility] 1.0.114 350.1.13.10 4.2.7.2.686 [id number] [id number] [facility] 2023-03-04 10:30:00 2023-03-04 10:45:00 Electrical Tech Visit Pcp-Lab Lloyd Loza [facility] PRIMARY CARE PAVILLION 1.0.114 350.1.13.10 4.2.7.2.686 [id number] [facility] 2023-03-04 10:30:00 2023-03-04 10:30:00 Outpatient R LLOYD LOZA [facility] [id number] [facility] 2023-03-04 00:00:00 2023-03-04 00:00:00 Case Management Rukhsana Randolph [facility] 1.0.114 350.1.13.10 4.2.7.2.686 [id number] [id number] [facility] 2023-02-19 00:00:00 2023-02-19 00:00:00 Elissa Henry [facility] 1..114 350.1.13.10 4.2.7.2.686 [id number] 085 [id number] [facility] 2023-02-15 07:07:00 2023-02-15 16:50:00 Outpatient R SAMUEL BREEN [facility] CCA [id number] [facility] 2023-02-15 07:07:00 2023-02-15 16:50:00 Hospital Encounter [facility] 1..114 350.1.13.10 4.2.7.2.686 [id number] [id number] [facility] 2023-02-15 08:30:00 2023-02-15 10:30:00 Surgery [facility] 1.0.114 350.1.13.10 4.2.7.2.686 [id number] [id number] [facility] 2023-02-15 00:00:00 2023-02-15 00:00:00 Orders Only Doctor Unassigned, [place] [facility] 1.2840.114 350.1.13.10 4.2.7.2.686 [id number] [id number] [facility] 2023-02-11 11:00:00 2023-02-11 11:15:00 Electrical Tech Visit Pcp-Lab Samuel Breen [facility] PRIMARY CARE PAVILLION 1.2.840.114 350.1.13.10 4.2.7.2.686 [id number] [facility] 2023-02-11 11:00:00 2023-02-11 11:00:00 Outpatient R SAMUEL BREEN [facility] [id number] [facility] 2023-02-11 08:00:00 2023-02-11 08:30:00 Office Visit Fellow, Pulmonary Delbert Taylor [facility] 1.2.840.114 350.1.13.10 4.2.7.2.686 [id number] 084 [id number] [facility] 2023-02-10 00:00:00 2023-02-10 00:00:00 Patient Secure Msg Doctor Unassigned, [place] [facility] 1.2.840.114 350.1.13.10 4.2.7.2.686 [id number] 037 [id number] [facility] 2023-02-04 00:00:00 2023-02-04 00:00:00 Telephone [facility] 1.2.840.114 350.1.13.10 4.2.7.2.686 [id number] [id number] [facility] 2023-02-01 00:00:00 2023-02-01 00:00:00 Telephone [facility] 1.2.840.114 350.1.13.10 4.2.7.2.686 [id number] [id number] [facility] 2023-01-31 14:00:00 2023-01-31 14:11:40 Out[facility] [id number] [facility] 2023-01-31 14:00:00 2023-01-31 14:11:40 Office Visit VirgilioMichael [facility] MED[facility] OFF[facility] BUILD[facility] 1.2.840.114 350.1.13.10 4.2.7.2.686 [id number] 059 [id number] [facility] 2023-01-31 00:00:00 2023-01-31 00:00:00 Telephone Carmen Mesa [facility] BUILDING 1.2.840.114 350.1.13.10 4.2.7.2.686 [id number] [facility] 2023-01-28 00:00:00 2023-01-28 00:00:00 Telephone Jm Espinal [facility] MEDICAL OFFICE BUILDING 1.2840.114 350.1.13.10 4.2.7.2.686 [id number] 059 [id number] [facility] 2023-01-28 00:00:00 2023-01-28 00:00:00 Telephone Jm Espinal [facility] 1.840.114 350.1.13.10 4.2.7.2.686 [id number] 059 [id number] [facility] 2023-01-28 00:00:00 2023-01-28 00:00:00 Telephone Delbert Taylor [facility] MEDICAL OFFICE BUILDING 1.2840.114 350.1.13.10 4.2.7.2.686 [id number] 084 [id number] [facility] 2023-01-25 10:46:43 2023-01-25 23:59:00 Outpatient R JM ESPINAL AMER [facility] [id number] [facility] 2023-01-25 10:46:43 2023-01-25 23:59:00 Hospital Encounter Jm Espinal [facility] 1.2.840.114 350.1.13.10 4.2.7.2.686 [id number] [facility] 2023-01-24 10:30:00 2023-01-24 12:51:30 Outpatient R BRANDENKRISSYCortney DYLANPRANAV [facility] [id number] [facility] 2023-01-24 10:30:00 2023-01-24 12:51:30 Imm/Inj Visit Abner Otero [facility] [employer] [address] 1.840.114 350.1.13.10 4.2.7.2.686 [id number] [facility] 2023-01-24 00:00:00 2023-01-24 00:00:00 Orders Only Doctor Unassigned, [place] [facility] 1.840.114 350.1.13.10 4.2.7.2.686 [id number] [id number] [facility] 2023-01-21 10:40:00 2023-01-21 11:00:00 Office Visit Cielo Kong [facility] PRIMARY CARE PAVILLION 1.840.114 350.1.13.10 4.2.7.2.686 [id number] 086 [id number] [facility] 2023-01-21 10:40:00 2023-01-21 10:40:00 Outpatient CIELO VELOZ [facility] [id number] [facility] 2023-01-18 00:00:00 2023-01-18 00:00:00 Telephone Carmen Mesa [facility] 1.840.114 350.1.13.10 4.2.7.2.686 [id number] [facility] 2023-01-17 11:20:00 2023-01-17 11:20:00 Outpatient LLOYD FRAZIER [facility] [id number] [facility] 2023-01-14 09:30:00 2023-01-14 09:30:00 [id number] 2023-01-14 00:00:00 2023-01-14 00:00:00 Telephone Kylie [facility] 1.2.840.114 350.1.13.10 4.2.7.2.686 [id number] 059 [id number] [facility] 2023-01-13 00:00:00 2023-01-13 00:00:00 Helen Tabor [facility] 1.2.840.114 350.1.13.10 4.2.7.2.686 [id number] 086 [id number] [facility] 2023-01-13 00:00:00 2023-01-13 00:00:00 Telephone Kylie [facility] 1.2.840.114 350.1.13.10 4.2.7.2.686 [id number] 059 [id number] [facility] 2023-01-11 13:00:00 2023-01-11 13:30:00 [facility] 1.2.840.114 350.1.13.10 4.2.7.2.686 [id number] 059 [id number] [facility] 2023-01-11 13:00:00 2023-01-11 13:00:00 Outpatient R JM ESPINAL AMER [facility] [id number] [facility] 2023-01-05 00:00:00 2023-01-05 00:00:00 Telephone Graciela Durand [facility] PRIMARY CARE PAVILLION 1.2.840.114 350.1.13.10 4.2.7.2.686 [id number] [facility] 2023-01-05 00:00:00 2023-01-05 00:00:00 Telephone Lloyd Loza Rp 1.2.840.114 350.1.13.10 4.2.7.2.686 [id number] 080 [id number] [facility] 2023-01-05 00:00:00 2023-01-05 00:00:00 Telephone Delbert Taylor [facility] MEDICAL OFFICE BUILDING 1.2.840.114 350.1.13.10 4.2.7.2.686 [id number] 084 [id number] [facility] 2023-01-04 11:00:00 2023-01-04 12:00:00 Electrical Tech Visit Testing, [facility] Pulmonary Function Delbert Taylor [facility] 1.2.840.114 350.1.13.10 4.2.7.2.686 [id number] 083 [id number] [facility] 2023-01-04 11:00:00 2023-01-04 11:00:00 Outpatient [facility] [id number] [facility] 2023-01-04 00:00:00 2023-01-04 00:00:00 Orders Only Doctor Unassigned, [place] [facility] 1.2.840.114 350.1.13.10 4.2.7.2.686 [id number] [id number] [facility] 2023-01-04 00:00:00 2023-01-04 00:00:00 Telephone Delbert Taylor [facility] MEDICAL OFFICE BUILDING 1.2.840.114 350.1.13.10 4.2.7.2.686 [id number] 084 [id number] [facility] 2022-12-30 00:00:00 2022-12-30 00:00:00 Telephone Delbert Taylor [facility] MEDICAL OFFICE BUILDING 1.2.840.114 350.1.13.10 4.2.7.2.686 [id number] 084 [id number] [facility] 2022-12-29 00:00:00 2022-12-29 00:00:00 Telephone Delbert Taylor [facility] MEDICAL OFFICE BUILDING 1..840.114 350.1.13.10 4.2.7.2.686 [id number] 084 [id number] [facility] 2022-12-28 11:00:00 2022-12-28 11:00:00 Outpatient R [facility] [id number] [facility] 2022-12-22 11:00:00 2022-12-22 11:20:00 [facility] 1.840.114 350.1.13.10 4.2.7.2.686 [id number] [facility] 2022-12-22 11:00:00 2022-12-22 11:00:00 Outpatient R MP [facility] [id number] [facility] 2022-12-22 00:00:00 2022-12-22 00:00:00 Orders Only Doctor Unassigned, [place] [facility] 1.840.114 350.1.13.10 4.2.7.2.686 [id number] [id number] [facility] 2022-12-17 00:00:00 2022-12-17 00:00:00 Telephone Delbert Taylor [facility] MEDICAL OFFICE BUILDING 1.2.840.114 350.1.13.10 4.2.7.2.686 [id number] 084 [id number] [facility] 2022-12-16 10:15:00 2022-12-16 12:43:28 Outpatient R ABNER OTERO [facility] [id number] [facility] 2022-12-16 10:15:00 2022-12-16 12:43:28 Imm/Inj Visit Abner Otero [facility] Destineer [facility] BLDG. 1..840.114 350.1.13.10 4.2.7.2.686 [id number] [facility] 2022-12-15 15:00:00 2022-12-15 15:30:00 Office Visit Brandon Delbert [facility] MEDICAL OFFICE BUILDING 1.2840.114 350.1.13.10 4.2.7.2.686 [id number] 084 [id number] [facility] 2022-12-15 15:00:00 2022-12-15 15:00:00 Outpatient R [facility] [id number] [facility] 2022-12-15 00:00:00 2022-12-15 00:00:00 Telephone Brandon [facility] MEDICAL OFFICE BUILDING 1..840.114 350.1.13.10 4.2.7.2.686 [id number] 084 [id number] [facility] 2022-12-13 00:00:00 2022-12-13 00:00:00 Orders Only Doctor Unassigned, [place] [facility] 1.840.114 350.1.13.10 4.2.7.2.686 [id number] 009 [id number] [facility] 2022-11-29 00:00:00 2022-11-29 00:00:00 Patient Secure Msg Doctor Unassigned, [place] [facility] 1.20.114 350.1.13.10 4.2.7.2.686 [id number] 019 [id number] [facility] 2022-11-26 10:00:00 2022-11-26 10:00:00 Outpatient R LLOYD LOZA [facility] [id number] [facility] 2022-11-25 00:00:00 2022-11-25 00:00:00 Patient Outreach Mita Ngo [facility] 1.840.114 350.1.13.10 4.2.7.2.686 [id number] 365 [id number] [facility] 2022-11-23 00:00:00 2022-11-23 00:00:00 Patient Secure Mimi Ferrari [facility] 1.2.840.114 350.1.13.10 4.2.7.2.686 [id number] [facility] 2022-11-22 10:30:00 2022-11-22 10:30:00 Outpatient R [facility] [id number] [facility] 2022-11-16 00:00:00 2022-11-16 00:00:00 Transition of Care Camelia Dorman 1.2.840.114 350.1.13.10 4.2.7.2.686 [id number] [facility] 2022-11-01 15:10:00 2022-11-15 16:09:00 Hospital Encounter Laith Benito David [facility] 1.2.840.114 350.1.13.10 4.2.7.2.686 [id number] [facility] 2022-11-11 00:00:00 2022-11-11 00:00:00 Outpatient RUKHSANA KRAMER [facility] [id number] [facility] 2022-11-01 10:30:00 2022-11-01 12:24:17 [facility] 1.2.840.114 350.1.13.10 4.2.7.2.686 [id number] [facility] 2022-11-01 10:30:00 2022-11-01 12:24:17 Outpatient ABNER DIXON [facility] [id number] [facility] 2022-11-01 10:30:00 2022-11-01 10:30:00 Outpatient ABNER DIXON [facility] [id number] [facility] 2022-11-01 00:00:00 2022-11-01 00:00:00 Orders Only Doctor Unassigned, [place] [facility] 1.0.114 350.1.13.10 4.2.7.2.686 [id number] [facility] 2022-10-29 11:00:00 2022-10-29 11:00:00 Outpatient R [facility] [id number] [facility] 2022-10-27 14:00:00 2022-10-27 14:00:00 Outpatient R JM ESPINAL [facility] [id number] [facility] 2022-10-19 14:30:00 2022-10-19 15:39:28 Outpatient R ARIANNE CHAPPELL [facility] [id number] [facility] 2022-10-19 14:30:00 2022-10-19 15:39:28 [facility] 1..114 350.1.13.10 4.2.7.2.686 [id number] [facility] 2022-10-19 00:00:00 2022-10-19 00:00:00 Case Management [facility] 1..114 350.1.13.10 4.2.7.2.686 [id number] [facility] 2022-10-18 00:00:00 2022-10-18 00:00:00 Telephone Lloyd Loza Rp [facility] 1..114 350.1.13.10 4.2.7.2.686 [id number] [facility] 2022-10-15 00:00:00 2022-10-15 00:00:00 [facility] 1.840.114 350.1.13.10 4.2.7.2.686 [id number] [facility] 2022-10-08 00:00:00 2022-10-08 00:00:00 Patient Secure Msg [facility] 1.840.114 350.1.13.10 4.2.7.2.686 [id number] [facility] 2022-10-07 00:00:00 2022-10-07 00:00:00 Telephone Quinn Damon [facility] 1.840.114 350.1.13.10 4.2.7.2.686 [id number] [facility] 2022-10-01 00:00:00 2022-10-01 00:00:00 Patient Secure Msg Mimi Blakely [facility] 1..114 350.1.13.10 4.2.7.2.686 [id number] [facility] 2022-09-30 13:15:00 2022-09-30 13:55:00 Outpatient R QUINN DAMON [facility] [id number] [facility] 2022-09-30 13:15:00 2022-09-30 13:55:00 [facility] 1.0.114 350.1.13.10 4.2.7.2.686 [id number] [facility] 2022-09-30 11:20:00 2022-09-30 12:06:53 Office Visit Roxana Iqbal [facility] 1.840.114 350.1.13.10 4.2.7.2.686 [id number] 059 [id number] [facility] 2022-09-30 00:00:00 2022-09-30 00:00:00 Orders Only Doctor Unassigned, Old Eucha [facility] 1.2.840.114 350.1.13.10 4.2.7.2.686 [id number] [id number] [facility] 2022-09-23 00:00:00 2022-09-23 00:00:00 Telephone MarcianoroxyJm [facility] 1.2840.114 350.1.13.10 4.2.7.2.686 [id number] 059 [id number] [facility] 2022-09-20 00:00:00 2022-09-20 00:00:00 Patient Secure Msg Doctor Unassigned, Old Eucha [facility] 1.2840.114 350.1.13.10 4.2.7.2.686 [id number] 059 [id number] [facility] 2022-09-14 13:00:00 2022-09-14 13:00:00 Outpatient SONYA ROBERTO [facility] [id number] [facility] 2022-09-14 11:00:00 2022-09-14 11:00:00 Outpatient SONYA ROBERTO [facility] [id number] [facility] 2022-09-10 00:00:00 2022-09-10 00:00:00 Patient Secure Msg Milo Juarez [facility] 1.2.840.114 350.1.13.10 4.2.7.2.686 [id number] 086 [id number] [facility] 2022-09-08 00:00:00 2022-09-08 00:00:00 Orders Only Doctor Unassigned, Old Eucha [facility] 1.2.840.114 350.1.13.10 4.2.7.2.686 [id number] [id number] [facility] 2022-09-07 00:00:00 2022-09-07 00:00:00 Telephone Elo Lozalidia Eddy [facility]ING 1.2.840.114 350.1.13.10 4.2.7.2.686 [id number] 080 [id number] [facility] 2022-09-02 13:15:00 2022-09-02 13:53:49 Outpatient R QUINN DAMON [facility] [id number] [facility] 2022-09-02 13:15:00 2022-09-02 13:30:00 Imm/Inj Visit Quinn Damon [facility] AND [facility] 1.2.840.114 350.1.13.10 4.2.7.2.686 [id number] [facility] 2022-08-31 00:00:00 2022-08-31 00:00:00 Patient Secure Msg Dago Lloyd [facility] 1.2.840.114 350.1.13.10 4.2.7.2.686 [id number] 080 [id number] [facility] 2022-08-30 11:30:00 2022-08-30 16:29:42 Outpatient R LLOYD LOZA [facility] [id number] [facility] 2022-08-30 11:30:00 2022-08-30 16:29:42 Office Visit Lloyd Loza [facility] 1.2.840.114 350.1.13.10 4.2.7.2.686 [id number] 080 [id number] [facility] 2022-08-30 00:00:00 2022-08-30 00:00:00 Jm Connell [facility] 1.2.840.114 350.1.13.10 4.2.7.2.686 [id number] 059 [id number] [facility] 2022-08-27 00:00:00 2022-08-27 00:00:00 Orders Only Doctor Unassigned, Old Eucha [facility] 1.2.840.114 350.1.13.10 4.2.7.2.686 [id number] 009 [id number] [facility] 2022-08-26 13:00:00 2022-08-26 13:15:00 Electrical Tech Visit Pcp-Lab Nikhil Juarez [facility] 1.2840.114 350.1.13.10 4.2.7.2.686 [id number] [facility] 2022-08-26 13:00:00 2022-08-26 13:00:00 Outpatient NIKHIL MOROCHO [facility] [id number] [facility] 2022-08-26 09:45:00 2022-08-26 10:00:00 Office Visit Quinn Damon [facility] MULTISPEC [facility] 1.2840.114 350.1.13.10 4.2.7.2.686 [id number] [facility] 2022-08-26 00:00:00 2022-08-26 00:00:00 Jm Connell [facility] 1.2840.114 350.1.13.10 4.2.7.2.686 [id number] 059 [id number] [facility] 2022-08-12 11:00:00 2022-08-12 11:26:11 Outpatient CIELO VELOZ [facility] [id number] [facility] 2022-08-12 11:00:00 2022-08-12 11:26:11 Office Visit Milo Juarez Vijaya Laxmi [facility] 1.2840.114 350.1.13.10 4.2.7.2.686 [id number] 086 [id number] [facility] 2022-08-06 00:00:00 2022-08-06 00:00:00 Jm Connell [facility] OFFICE BUILD[facility] 1..114 350.1.13.10 4.2.7.2.686 [id number] 059 [id number] [facility] 2022-07-29 09:45:00 2022-07-29 10:00:00 Office Visit Quinn Damon [facility] MULTISPEC [facility] 1..114 350.1.13.10 4.2.7.2.686 [id number] [facility] 2022-07-29 09:45:00 2022-07-29 09:45:00 Outpatient R QUINN DAMON [facility] [id number] [facility] 2022-07-26 00:00:00 2022-07-26 00:00:00 Patient Secure MsSammy Garcia [facility]ULT[facility]PEC [facility] 1..114 350.1.13.10 4.2.7.2.686 [id number] 085 [id number] [facility] 2022-07-19 00:00:00 2022-07-19 00:00:00 Case Management Sammy Tripp [facility]ULT[facility] 1..114 350.1.13.10 4.2.7.2.686 [id number] 085 [id number] [facility] 2022-07-08 08:30:00 2022-07-08 09:21:08 Outpatient SAMMY YOST [facility] [id number] [facility] 2022-07-08 08:30:00 2022-07-08 09:21:08 Office Visit Sammy Tripp [facility]ULT[facility] 1..114 350.1.13.10 4.2.7.2.686 [id number] 085 [id number] [facility] 2022-07-08 00:00:00 2022-07-08 00:00:00 Orders Only Doctor Unassigned, Old [place]uch[place] [facility] 1.2.840.114 350.1.13.10 4.2.7.2.686 [id number] 009 [id number] [facility] 2022-07-07 00:00:00 2022-07-07 00:00:00 RefJm Pinon [facility] 1.840.114 350.1.13.10 4.2.7.2.686 [id number] 059 [id number] [facility] 2022-07-04 00:00:00 2022-07-04 00:00:00 RefNikhil Mckeon [facility] 1..114 350.1.13.10 4.2.7.2.686 [id number] 086 [id number] [facility] 2022-07-02 00:00:00 2022-07-02 00:00:00 Patient Secure Cecilia Ferrariyere [facility] 1.2840.114 350.1.13.10 4.2.7.2.686 [id number] [facility] 2022-06-24 13:45:00 2022-06-24 14:39:02 Outpatient R QUINN DAMON [facility] [id number] [facility] 2022-06-24 13:45:00 2022-06-24 14:00:00 Office Visit Quinn Damon [facility]ULT[facility]PEC [facility] 1..114 350.1.13.10 4.2.7.2.686 [id number] [facility] 2022-06-24 10:40:00 2022-06-24 11:00:00 Office Visit Mimi Blakely [facility] 1.2.840.114 350.1.13.10 4.2.7.2.686 [id number] [facility] 2022-06-23 00:00:00 2022-06-23 00:00:00 Telephone Elissa Campos [facility] 1.2.840.114 350.1.13.10 4.2.7.2.686 [id number] 085 [id number] [facility] 2022-06-23 00:00:00 2022-06-23 00:00:00 Telephone Nikhil Juarez [facility] 1.2840.114 350.1.13.10 4.2.7.2.686 [id number] 047 [id number] [facility] 2022-06-19 00:00:00 2022-06-19 00:00:00 Nazario Robledo [facility] OFF[facility] BUILD[facility] 1.2.840.114 350.1.13.10 4.2.7.2.686 [id number] 059 [id number] [facility] 2022-06-17 00:00:00 2022-06-17 00:00:00 Telephone Elissa Campos [facility] 1.2.840.114 350.1.13.10 4.2.7.2.686 [id number] 085 [id number] [facility] 2022-06-17 00:00:00 2022-06-17 00:00:00 Telephone Milo Juarez [facility] 1.2.840.114 350.1.13.10 4.2.7.2.686 [id number] 086 [id number] [facility] 2022-06-14 00:00:00 2022-06-14 00:00:00 Transition of Care Agatha Rodriges 1.2.840.114 350.1.13.10 4.2.7.2.686 [id number] [facility] 2022-06-12 00:00:00 2022-06-12 00:00:00 Geetha Dimas [facility] 1.2.840.114 350.1.13.10 4.2.7.2.686 [id number] 086 [id number] [facility] 2022-06-12 00:00:00 2022-06-12 00:00:00 Carlo Campos [employer] [facility] 1.2.840.114 350.1.13.10 4.2.7.2.686 [id number] 084 [id number] [facility] 2022-06-12 00:00:00 2022-06-12 00:00:00 Jm Connell [facility] OFF[facility] BUILD[facility] 1.2840.114 350.1.13.10 4.2.7.2.686 [id number] 059 [id number] [facility] 2022-06-09 13:17:00 2022-06-11 14:02:00 Inpatient X FARHAT YBARRA [facility] [id number] [facility] 2022-06-09 13:17:00 2022-06-11 14:02:00 Hospital Encounter Lynsey Bell, Farhat Matias [facility] 1.2.840.114 350.1.13.10 4.2.7.2.686 [id number] 081 [id number] [facility] 2022-06-11 00:00:00 2022-06-11 00:00:00 Patient Secure VidalMilo [facility] 1.2.840.114 350.1.13.10 4.2.7.2.686 [id number] 086 [id number] [facility] 2022-06-03 10:28:29 2022-06-03 23:59:00 Outpatient R TELLEZJOE [facility] [id number] [facility] 2022-06-03 11:30:00 2022-06-03 12:24:42 Office Visit Joe Tellez [facility] 1..114 350.1.13.10 4.2.7.2.686 [id number] [facility] [id number] [facility] 2022-06-03 09:45:00 2022-06-03 09:45:00 Outpatient R QUINN DAMON [facility] [id number] [facility] 2022-06-02 00:00:00 2022-06-02 00:00:00 Pre Visit Outreach Stacia Gonzalez [facility] 1..114 350.1.13.10 4.2.7.2.686 [id number] 086 [id number] [facility] 2022-06-01 00:00:00 2022-06-01 00:00:[address] [facility] 1..114 350.1.13.10 4.2.7.2.686 [id number] [facility] 2022-06-01 00:00:00 2022-06-01 00:00:00 Telephone Elissa Campos [facility] 1.2.114 350.1.13.10 4.2.7.2.686 [id number] 084 [id number] [facility] 2022-05-31 11:00:00 2022-05-31 12:38:31 Outpatient R LLOYD LOZA [facility] [id number] [facility] 2022-05-31 11:00:00 2022-05-31 12:38:31 Office Visit Lloyd Loza [facility] 1.2.840.114 350.1.13.10 4.2.7.2.686 [id number] 080 [id number] [facility] 2022-05-25 14:00:00 2022-05-25 14:23:01 [facility] [id number] [facility] 2022-05-25 14:00:00 2022-05-25 14:23:01 [facility] 1.2.840.114 350.1.13.10 4.2.7.2.686 [id number] 071 [id number] [facility] 2022-05-25 00:00:00 2022-05-25 00:00:00 [facility] 1.2840.114 350.1.13.10 4.2.7.2.686 [id number] [facility] 2022-05-24 10:12:20 2022-05-24 23:59:00 Hospital Encounter Lloyd Loza [facility] 1.2840.114 350.1.13.10 4.2.7.2.686 [id number] [facility] 2022-05-24 10:11:31 2022-05-24 10:11:31 Outpatient R LLOYD LOZA [facility] [id number] [facility] 2022-05-24 10:11:31 2022-05-24 10:11:31 Hospital Encounter Lloyd Lzoa [facility] 1.2840.114 350.1.13.10 4.2.7.2.686 [id number] [facility] 2022-05-24 00:00:00 2022-05-24 00:00:00 Telephone Elissa Campos [facility] 1.2840.114 350.1.13.10 4.2.7.2.686 [id number] 084 [id number] [facility] 2022-05-19 11:00:00 2022-05-19 11:00:00 Outpatient R ELISSA CAMPOS [facility] [id number] [facility] 2022-05-12 00:00:00 2022-05-12 00:00:00 Patient Secure Msmallorie Elissa Campos [facility] 1..114 350.1.13.10 4.2.7.2.686 [id number] 084 [id number] [facility] 2022-05-06 10:30:00 2022-05-06 10:45:00 Imm/Inj Visit Quinn Damon [facility] MULT[facility]PEC [facility] 1..114 350.1.13.10 4.2.7.2.686 [id number] [facility] 2022-05-06 10:30:00 2022-05-06 10:30:00 Outpatient R QUINN DAMON [facility] [id number] [facility] 2022-05-06 00:00:00 2022-05-06 00:00:00 Orders Only Doctor Unassigned, Old Eucha [facility] 1.840.114 350.1.13.10 4.2.7.2.686 [id number] 009 [id number] [facility] 2022-05-06 00:00:00 2022-05-06 00:00:00 Nikhil Nunez [facility] MULTISPEC [facility] 1.114 350.1.13.10 4.2.7.2.686 [id number] 086 [id number] [facility] 2022-04-28 14:00:00 2022-04-28 14:44:20 Outpatient JM YOST AMER [facility] [id number] [facility] 2022-04-28 14:00:00 2022-04-28 14:44:20 Office Visit Jm Espinal [facility] MED[facility] OFF[facility] BUILDING 1.2.114 350.1.13.10 4.2.7.2.686 [id number] 059 [id number] [facility] 2022-04-16 00:00:00 2022-04-16 00:00:00 [facility].2.114 350.1.13.10 4.2.7.2.686 [id number] 084 [id number] [facility] 2022-04-15 10:37:21 2022-04-15 23:59:00 Outpatient R ASHER ELISSA [facility] [id number] [facility] 2022-04-15 10:37:21 2022-04-15 23:59:00 [facility]..114 350.1.13.10 4.2.7.2.686 [id number] [facility] 2022-04-15 10:00:00 2022-04-15 10:30:03 Office Visit Joe Tellez [facility] 1.2.114 350.1.13.10 4.2.7.2.686 [id number] [facility] 2022-04-12 10:45:00 2022-04-12 10:45:00 Outpatient R MARCY WILLETT [facility] [id number] [facility] 2022-04-08 10:45:00 2022-04-08 11:00:00 Imm/Inj Visit Quinn Damon [facility] MULTISPEC [facility] 1.2.114 350.1.13.10 4.2.7.2.686 [id number] [facility] 2022-04-08 10:45:00 2022-04-08 10:45:00 Outpatient QUINN BHATTI [facility] [id number] [facility] 2022-04-08 09:30:00 2022-04-08 09:30:00 Outpatient QUINN BHATTI [facility] [id number] [facility] 2022-04-08 00:00:00 2022-04-08 00:00:00 Orders Only Doctor Unassigned, Old [place] [facility] 1.2.840.114 350.1.13.10 4.2.7.2.686 [id number] [id number] [facility] 2022-03-22 00:00:00 2022-03-22 00:00:00 Nazario Robledo [facility] OFF[facility] BUILDING 1.2.840.114 350.1.13.10 4.2.7.2.686 [id number] 059 [id number] [facility] 2022-03-21 00:00:00 2022-03-21 00:00:[address] [facility] MEDICAL OFFICE BUILDING 1.2.840.114 350.1.13.10 4.2.7.2.686 [id number] 059 [id number] [facility] 2022-03-19 00:00:00 2022-03-19 00:00:00 [facility].840.114 350.1.13.10 4.2.7.2.686 [id number] 084 [id number] [facility] 2022-03-18 00:00:00 2022-03-18 00:00:00 Jm Connell [facility] OFF[facility] BUILDING 1.2.840.114 350.1.13.10 4.2.7.2.686 [id number] 059 [id number] [facility] 2022-03-17 14:56:58 2022-03-17 23:59:00 [facility] 1.2840.114 350.1.13.10 4.2.7.2.686 [id number] [facility] 2022-03-17 10:00:00 2022-03-17 11:31:12 [id number] 2022-03-17 10:00:00 2022-03-17 11:31:12 [facility] 1.2.840.114 350.1.13.10 4.2.7.2.686 [id number] 084 [id number] [facility] 2022-03-11 14:00:00 2022-03-11 14:15:00 Imm/Inj Visit Quinn Damon [facility] 1..114 350.1.13.10 4.2.7.2.686 [id number] [facility] 2022-03-11 14:00:00 2022-03-11 14:00:00 Outpatient R QUINN DAMON [facility] [id number] [facility] 2022-03-11 00:00:00 2022-03-11 00:00:00 Orders Only Doctor Unassigned, Old [place] [facility] 1.0.114 350.1.13.10 4.2.7.2.686 [id number] [id number] [facility] 2022-03-04 11:45:00 2022-03-04 12:00:00 Electrical Tech Visit Pcp-Nikhil Rivera [facility] 1.2840.114 350.1.13.10 4.2.7.2.686 [id number] [facility] 2022-03-04 11:00:00 2022-03-04 11:11:59 Outpatient R NIKHIL JUAREZ [facility] [id number] [facility] 2022-03-04 11:00:00 2022-03-04 11:11:59 Office Visit Milo Juarez Emilio B [facility] 1.2.840.114 350.1.13.10 4.2.7.2.686 [id number] 086 [id number] [facility] 2022-02-26 00:00:00 2022-02-26 00:00:00 [facility] 1.2.840.114 350.1.13.10 4.2.7.2.686 [id number] 084 [id number] [facility] 2022-02-26 00:00:00 2022-02-26 00:00:00 [facility] 1.2.840.114 350.1.13.10 4.2.7.2.686 [id number] 084 [id number] [facility] 2022-02-26 00:00:00 2022-02-26 00:00:00 Telephone Quinn Damon [facility] MULTISPEC [facility] 1.2.840.114 350.1.13.10 4.2.7.2.686 [id number] 136 [id number] [facility] 2022-02-25 13:30:00 2022-02-25 13:45:00 Office Visit Quinn Damon [facility] MULTISPEC [facility] 1.2.840.114 350.1.13.10 4.2.7.2.686 [id number] 136 [id number] [facility] 2022-02-25 13:30:00 2022-02-25 13:30:00 Outpatient R QUINN DAMON [facility] [id number] [facility] 2022-02-21 00:00:00 2022-02-21 00:00:00 Elissa Henry [facility] 1.2.840.114 350.1.13.10 4.2.7.2.686 [id number] 084 [id number] [facility] 2022-02-19 11:00:00 2022-02-19 13:43:45 Outpatient R LLOYD LOZA [facility] [id number] [facility] 2022-02-19 11:00:00 2022-02-19 13:43:45 Telemedici ne Visit Lloyd Loza [facility] BUILDING 1.2.840.114 350.1.13.10 4.2.7.2.686 [id number] 080 [id number] [facility] 2022-02-12 00:00:00 2022-02-12 00:00:00 Telephone Jm Espinal [facility] MEDICAL OFFICE BUILDING 1.2.840.114 350.1.13.10 4.2.7.2.686 [id number] 059 [id number] [facility] 2022-02-12 00:00:00 2022-02-12 00:00:00 Orders Only Doctor Unassigned, Old [place] [facility] 1.2.840.114 350.1.13.10 4.2.7.2.686 [id number] [facility] 2022-02-07 00:00:00 2022-02-07 00:00:00 Jm Connell [facility] 1.2.840.114 350.1.13.10 4.2.7.2.686 [id number] 059 [id number] [facility] 2022-01-28 13:45:00 2022-01-28 14:00:00 Office Visit Quinn Damon [facility] MULTISPEC [facility] 1.2.840.114 350.1.13.10 4.2.7.2.686 [id number] [facility] 2022-01-28 13:45:00 2022-01-28 13:45:00 Outpatient R KOFI GONZALES DEWAYNEEUGENIO [facility] [id number] [facility] 2022-01-28 13:45:00 2022-01-28 13:45:00 Outpatient Yo GONZALES QUINN [facility] [id number] [facility] 2022-01-26 00:00:00 2022-01-26 00:00:00 Patient Secure Msg Doctor Unassigned, Old [place] JASON Driver [facility] 1.2.840.114 350.1.13.10 4.2.7.2.686 [id number] [facility] 2022-01-21 00:00:00 2022-01-21 00:00:00 Refill Jm Espinal [facility] 1.2840.114 350.1.13.10 4.2.7.2.686 [id number] [facility] 2022-01-15 00:00:00 2022-01-15 00:00:00 RefNikhil Mckeon [facility] 1.2840.114 350.1.13.10 4.2.7.2.686 [id number] [facility] 2022-01-12 00:00:00 2022-01-12 00:00:00 Jadonill Elissa Campos [facility] 1.2840.114 350.1.13.10 4.2.7.2.686 [id number] [facility] 2022-01-11 10:25:10 2022-01-11 23:59:00 Outpatient LLOYD FRAZIER [facility] [id number] [facility] 2022-01-11 10:25:10 2022-01-11 23:59:00 Hospital Encounter Lloyd Loza [facility] 1.2.84.114 350.1.13.10 4.2.7.2.686 [id number] [facility] 2022-01-08 00:00:00 2022-01-08 00:00:00 Patient Secure Msg Doctor Unassigned, [place] [facility] 1.840.114 350.1.13.10 4.2.7.2.686 [id number] [facility] 2022-01-05 14:00:00 2022-01-05 14:30:00 [facility] 1.84.114 350.1.13.10 4.2.7.2.686 [id number] [facility] 2022-01-05 14:00:00 2022-01-05 14:00:00 Outpatient Yo DAWSON [facility] [id number] [facility] 2022-01-05 14:00:00 2022-01-05 14:00:00 [id number] 2021-12-31 13:00:00 2021-12-31 13:15:00 Office Visit Quinn Damon [facility] 1.840.114 350.1.13.10 4.2.7.2.686 [id number] [facility] 2021-12-31 13:00:00 2021-12-31 13:00:00 Outpatient QUINN BHATTI [facility] [id number] [facility] 2021-12-31 13:00:00 2021-12-31 13:00:00 Outpatient QUINN BHATTI [facility] [id number] [facility] 2021-12-11 10:20:00 2021-12-11 10:20:00 Outpatient LLOYD FRAZIER [facility] [id number] [facility] 2021-12-11 10:20:00 2021-12-11 10:20:00 Office [facility] 1.2.840.114 350.1.13.10 4.2.7.2.686 [id number] [facility] 2021-12-11 10:20:00 2021-12-11 10:18:59 Outpatient R ELO LOZALidia [facility] [id number] [facility] 2021-12-06 00:00:00 2021-12-06 00:00:[address] [facility] OFF[facility] 1.2.840.114 350.1.13.10 4.2.7.2.686 [id number] [facility] 2021-12-06 00:00:00 2021-12-06 00:00:00 Jm Connell [facility] 1.2.840.114 350.1.13.10 4.2.7.2.686 [id number] [facility] 2021-12-03 13:00:00 2021-12-03 13:36:22 Outpatient R JM ESPINAL [facility] [id number] [facility] 2021-12-03 13:00:00 2021-12-03 13:36:22 Office Visit Jm Espinal [facility] 1.2.840.114 350.1.13.10 4.2.7.2.686 [id number] [facility] 2021-12-03 13:00:00 2021-12-03 13:36:22 Outpatient R JM ESPINAL [facility] [id number] [facility] 2021-12-01 10:14:48 2021-12-01 23:59:00 Hospital Encounter [facility] 1.2.840.114 350.1.13.10 4.2.7.2.686 [id number] [facility] 2021-12-01 10:14:10 2021-12-01 10:13:00 Outpatient R LINDA CHAPPELL [facility] [id number] [facility] 2021-12-01 10:00:00 2021-12-01 10:13:00 Hospital Encounter [facility] 1.2.840.114 350.1.13.10 4.2.7.2.686 [id number] [facility] 2021-11-30 00:00:00 2021-11-30 00:00:00 Elissa Henry [facility] MULTISPEC [facility]ALTY CENTER AND [facility] 1.2.840.114 350.1.13.10 4.2.7.2.686 [id number] [facility] 2021-11-26 13:15:00 2021-11-26 13:30:00 Imm/Inj Visit Quinn Damon [facility] MULTISPEC [facility] 1.2.840.114 350.1.13.10 4.2.7.2.686 [id number] [facility] 2021-11-26 13:15:00 2021-11-26 13:15:00 Outpatient R QUINN DAMON [facility] [id number] [facility] 2021-11-26 13:15:00 2021-11-26 13:15:00 Outpatient R QUINN DAMON [facility] [id number] [facility] 2021-11-23 11:13:00 2021-11-23 14:40:00 Outpatient NICOLE ELIZABETH [facility] GICortney [id number] [facility] 2021-11-23 11:13:00 2021-11-23 14:40:00 Hospital Encounter Nicole Dawson [facility]-CLIN ICAL SCIENCES BLDG 1.2.840.114 350.1.13.10 4.2.7.2.686 [id number] [facility] 2021-11-23 12:27:00 2021-11-23 13:57:00 [facility] 1.2.840.114 350.1.13.10 4.2.7.2.686 [id number] 020 [id number] [facility] 2021-11-23 00:00:00 2021-11-23 00:00:00 Orders Only Doctor Unassigned, Old Eucha [facility] 1.2.840.114 350.1.13.10 4.2.7.2.686 [id number] [id number] [facility] 2021-11-20 11:15:00 2021-11-20 11:30:00 Laboratory Only Only, Pcp Test Ronen Eden [facility] PRIMARY CARE PAVILLION 1.2840.114 350.1.13.10 4.2.7.2.686 [id number] [facility] 2021-11-20 11:15:00 2021-11-20 11:15:00 Outpatient R RONEN EDEN [facility] [id number] [facility] 2021-11-11 00:00:00 2021-11-11 00:00:00 Telephone Linda Chappell BUILDING 1.2840.114 350.1.13.10 4.2.7.2.686 [id number] 080 [id number] [facility] 2021-11-11 00:00:00 2021-11-11 00:00:00 Telephone Linda Chappell BUILDING 1.2840.114 350.1.13.10 4.2.7.2.686 [id number] 080 [id number] [facility] 2021-11-10 00:00:00 2021-11-10 00:00:00 Patient Secure Msg Doctor Unassigned, Old Eucha [facility] ICAL SCIENCES BLDG 1..114 350.1.13.10 4.2.7.2.686 [id number] 020 [id number] [facility] 2021-11-05 10:30:00 2021-11-05 10:30:00 Outpatient QUINN BHATTI [facility] [id number] [facility] 2021-11-05 10:30:00 2021-11-05 10:30:00 Outpatient QUINN BHATTI [facility] [id number] [facility] 2021-11-04 00:00:00 2021-11-04 00:00:00 Nikhil Nunez [facility] 1..114 350.1.13.10 4.2.7.2.686 [id number] [facility] 2021-11-03 15:30:00 2021-11-03 16:00:[address] [facility] 1..114 350.1.13.10 4.2.7.2.686 [id number] [facility] 2021-11-03 15:30:00 2021-11-03 15:30:00 [facility] [id number] 2021-11-03 15:30:00 2021-11-03 15:30:00 Outpatient Yo DAWSON [facility] [id number] [facility] 2021-11-03 14:45:00 2021-11-03 15:00:00 Electrical Tech [facility] 1..114 350.1.13.10 4.2.7.2.686 [id number] [facility] 2021-11-03 00:00:00 2021-11-03 00:00:00 Orders Only Doctor Unassigned, Old Eucha [facility] 1.2840.114 350.1.13.10 4.2.7.2.686 [id number] [facility] 2021-10-29 13:30:00 2021-10-29 13:45:00 Electrical Tech Visit Vls-Lab Jacob Mao [facility] 1.0.114 350.1.13.10 4.2.7.2.686 [id number] [facility] 2021-10-29 13:00:00 2021-10-29 13:00:00 Outpatient R QUINN DAMON [facility] [id number] [facility] 2021-10-29 11:15:00 2021-10-29 11:30:00 Office Visit Jacob Mao [facility] 1.0.114 350.1.13.10 4.2.7.2.686 [id number] [facility] 2021-10-29 11:15:00 2021-10-29 11:15:00 Outpatient R JACOB MAO [facility] [id number] [facility] 2021-10-26 00:00:00 2021-10-26 00:00:00 Case Management Lilia Metzger [facility] 1.0.114 350.1.13.10 4.2.7.2.686 [id number] [facility] 2021-10-15 09:31:51 2021-10-15 23:59:00 Hospital Encounter Jacob Mao [facility] 1.0.114 350.1.13.10 4.2.7.2.686 [id number] [facility] 2021-10-15 09:31:20 2021-10-15 23:59:00 Outpatient R JACOB MAO [facility] [id number] [facility] 2021-10-15 09:31:20 2021-10-15 23:59:00 Hospital Encounter Jacob Mao [facility] 1.2.840.114 350.1.13.10 4.2.7.2.686 [id number] [facility] 2021-10-15 00:00:00 2021-10-15 00:00:00 Jm Connell [facility] 1.2.840.114 350.1.13.10 4.2.7.2.686 [id number] [id number] [facility] 2021-10-14 00:00:00 2021-10-14 00:00:00 Telephone Geetha Lopez [facility] 1.2.840.114 350.1.13.10 4.2.7.2.686 [id number] 047 [id number] [facility] 2021-10-12 00:00:00 2021-10-12 00:00:00 Patient Secure Msg Doctor Unassigned, Old Euch[place] [facility] 1.2.840.114 350.1.13.10 4.2.7.2.686 [id number] [facility] 2021-10-09 13:00:00 2021-10-09 13:15:00 Electrical Tech Visit Pcp-Lab Nikhil Juarez [facility] PRIMARY CARE PAVILLION 1.2.840.114 350.1.13.10 4.2.7.2.686 [id number] [facility] 2021-10-09 11:00:00 2021-10-09 11:38:54 Outpatient R NIKHIL JUAREZ [facility] [id number] [facility] 2021-10-09 11:00:00 2021-10-09 11:38:54 Office Visit Geetha Lopez Emilio B [facility] PRIMARY CARE PAVILLION 1.2.840.114 350.1.13.10 4.2.7.2.686 [id number] [facility] 2021-10-08 10:15:00 2021-10-08 10:30:00 Imm[facility] 1.2840.114 350.1.13.10 4.2.7.2.686 [id number] [facility] 2021-10-08 10:15:00 2021-10-08 10:15:00 Outpatient R QUINN DAMON [facility] [id number] [facility] 2021-10-08 10:15:00 2021-10-08 10:15:00 Outpatient R QUINN DAMON [facility] [id number] [facility] 2021-10-08 00:00:00 2021-10-08 00:00:00 Orders Only Doctor Unassigned, Old Euch[place] [facility] 1.2.840.114 350.1.13.10 4.2.7.2.686 [id number] [id number] [facility] 2021-10-06 00:00:00 2021-10-06 00:00:00 Refill Nazario Scott [facility] 1.2.840.114 350.1.13.10 4.2.7.2.686 [id number] [facility] 2021-10-05 00:00:00 2021-10-05 00:00:00 RefJm Pinon [facility] 1.2.840.114 350.1.13.10 4.2.7.2.686 [id number] [facility] 2021-09-10 10:45:00 2021-09-10 11:00:00 Imm/Inj Visit Quinn Damon [facility] 1.840.114 350.1.13.10 4.2.7.2.686 [id number] [facility] 2021-09-10 10:45:00 2021-09-10 10:45:00 Outpatient R QUINN DAMON [facility] [id number] [facility] 2021-09-10 10:45:00 2021-09-10 10:45:00 Outpatient R QUINN DAMON [facility] [id number] [facility] 2021-09-10 10:45:00 2021-09-10 10:45:00 Outpatient R QUINN DAMON [facility] [id number] [facility] 2021-09-09 15:30:00 2021-09-09 16:11:50 Outpatient R ELISSA CAMPOS [facility] [id number] [facility] 2021-09-09 15:30:00 2021-09-09 16:11:50 Office Visit Elissa Campos [facility] 1..840.114 350.1.13.10 4.2.7.2.686 [id number] [facility] 2021-09-08 10:00:00 2021-09-08 11:39:15 Office Visit Sonya Quick [facility] 1..840.114 350.1.13.10 4.2.7.2.686 [id number] [facility] 2021-09-08 10:00:00 2021-09-08 11:39:15 Outpatient R SONYA QUICK [facility] [id number] [facility] 2021-09-08 10:00:00 2021-09-08 10:00:00 Outpatient R SONYA QUICK [facility] [id number] [facility] 2021-09-08 10:00:00 2021-09-08 10:00:00 Outpatient SONYA ROBERTO [facility] [id number] [facility] 2021-09-04 00:00:00 2021-09-04 00:00:00 Orders Only Doctor Unassigned, Old Euch[place] [facility] 1..114 350.1.13.10 4.2.7.2.686 [id number] [facility] 2021-09-03 13:45:00 2021-09-03 14:31:15 [facility] 1.114 350.1.13.10 4.2.7.2.686 [id number] [facility] 2021-09-03 13:45:00 2021-09-03 14:31:15 Outpatient R QUINN DAMON [facility] [id number] [facility] 2021-09-03 13:45:00 2021-09-03 13:45:00 Outpatient QUINN BHATTI [facility] [id number] [facility] 2021-09-03 13:45:00 2021-09-03 13:45:00 Outpatient QUINN BHATTI [facility] [id number] [facility] 2021-08-23 00:00:00 2021-08-23 00:00:00 Geetha Dimas [facility] MULTISPEC [facility]ALTY CENTER [facility] 1.114 350.1.13.10 4.2.7.2.686 [id number] [facility] 2021-08-14 11:20:00 2021-08-14 11:40:00 Office Visit Lloyd [facility] 1..114 350.1.13.10 4.2.7.2.686 [id number] [facility] 2021-08-14 11:20:00 2021-08-14 11:20:00 Outpatient R LLOYD LOZA [facility] [id number] [facility] 2021-08-14 11:20:00 2021-08-14 11:20:00 [facility] [id number] [facility] 2021-08-11 00:00:00 2021-08-11 00:00:00 Patient Secure MsNazario Velásquez [facility] MEDICAL OFF[facility] 1.840.114 350.1.13.10 4.2.7.2.686 [id number] [facility] 2021-08-10 00:00:00 2021-08-10 00:00:00 Patient Secure Msg [facility] 1.840.114 350.1.13.10 4.2.7.2.686 [id number] [facility] 2021-08-06 10:30:00 2021-08-06 10:30:00 Outpatient MATTHEW GONZALEZ [facility] [id number] [facility] 2021-08-03 00:00:00 2021-08-03 00:00:00 Nazario Robledo [facility] 1.840.114 350.1.13.10 4.2.7.2.686 [id number] 059 [id number] [facility] 2021-07-27 00:00:00 2021-07-27 00:00:00 Telephone Jacob Mao [facility] 1..840.114 350.1.13.10 4.2.7.2.686 [id number] [facility] 2021-07-23 13:30:00 2021-07-23 14:28:34 Outpatient R QUINN DAMON [facility] [id number] [facility] 2021-07-23 13:30:00 2021-07-23 14:28:34 Office Visit Quinn Damon [facility] 1.2840.114 350.1.13.10 4.2.7.2.686 [id number] [facility] 2021-07-23 11:00:00 2021-07-23 12:00:00 Office Visit Jacob Mao 2, Lilo Mda Procedure [facility] 1.20.114 350.1.13.10 4.2.7.2.686 [id number] [facility] 2021-07-23 11:00:00 2021-07-23 12:00:00 Office Visit Jacob Mao 2, Lilo Mda Procedure [facility] 1.20.114 350.1.13.10 4.2.7.2.686 [id number] [facility] 2021-07-23 11:00:00 2021-07-23 11:00:00 Outpatient JACOB SAENZ [facility] [id number] [facility] 2021-07-23 11:00:00 2021-07-23 11:00:00 Outpatient JACOB SAENZ [facility] [id number] [facility] 2021-07-23 11:00:00 2021-07-23 11:00:00 Outpatient JACOB SAENZ [facility] [id number] [facility] 2021-07-23 00:00:00 2021-07-23 00:00:00 Orders Only Doctor Unassigned, Old [place] [facility] 1.2840.114 350.1.13.10 4.2.7.2.686 [id number] [facility] 2021-07-17 00:00:00 2021-07-17 00:00:[facility]..114 350.1.13.10 4.2.7.2.686 [id number] 084 [id number] [facility] 2021-07-16 00:00:00 2021-07-16 00:00[facility] 1.0.114 350.1.13.10 4.2.7.2.686 [id number] 084 [id number] [facility] 2021-07-10 00:00:00 2021-07-10 00:00:00 Patient Secure Msg Quinn Damon [facility] 1.114 350.1.13.10 4.2.7.2.686 [id number] [facility] 2021-07-03 00:00:00 2021-07-03 00:00:00 Patient Secure Msg Doctor Unassigned, Old Eucha [facility] BUILD[facility] 1.114 350.1.13.10 4.2.7.2.686 [id number] [facility] 2021-06-25 10:30:00 2021-06-25 11:25:18 Imm/Inj Visit Quinn Damon [facility] 1.114 350.1.13.10 4.2.7.2.686 [id number] [facility] 2021-06-25 10:30:00 2021-06-25 10:30:00 Outpatient R QUINN DAMON [facility] [id number] [facility] 2021-06-25 00:00:00 2021-06-25 00:00:00 Orders Only Doctor Unassigned, Old Eucha [facility] 1..114 350.1.13.10 4.2.7.2.686 [id number] [facility] 2021-06-15 00:00:00 2021-06-15 00:00:00 RefGeetha Roman [facility] PRIMARY CARE PAVILLION 1.2.840.114 350.1.13.10 4.2.7.2.686 [id number] [facility] 2021-06-11 13:00:00 2021-06-11 13:00:00 Outpatient JACOB SAENZ [facility] [id number] [facility] 2021-05-30 00:00:00 2021-05-30 00:00:00 RefAnatoly Rees [facility] MEDICAL OFFICE BUILDING 1.2840.114 350.1.13.10 4.2.7.2.686 [id number] [facility] 2021-05-30 00:00:00 2021-05-30 00:00:00 Refill Anatoly Ramos [facility] MEDICAL OFFICE BUILDING 1.2840.114 350.1.13.10 4.2.7.2.686 [id number] [facility] 2021-05-29 00:00:00 2021-05-29 00:00:00 Refill Nazario Scott [facility] 1.2840.114 350.1.13.10 4.2.7.2.686 [id number] [facility] 2021-05-29 00:00:00 2021-05-29 00:00:00 Telephone Quinn Damon [facility] MULTISPEC [facility] 1.2840.114 350.1.13.10 4.2.7.2.686 [id number] [facility] 2021-05-28 11:00:00 2021-05-28 12:07:35 Imm/Inj Visit Dewayne Damoneugenio [facility] MULTISPEC IALTY CENTER AND [facility] 1.114 350.1.13.10 4.2.7.2.686 [id number] [facility] 2021-05-28 11:00:00 2021-05-28 11:00:00 [facility] [id number] [facility] 2021-05-28 00:00:00 2021-05-28 00:00:00 Orders Only Doctor Unassigned, Old [place] [facility] 1..114 350.1.13.10 4.2.7.2.686 [id number] [facility] 2021-05-27 15:00:00 2021-05-27 15:30:00 Telemedici ne Visit Elissa Campos [facility] 1.114 350.1.13.10 4.2.7.2.686 [id number] [facility] 2021-05-27 15:00:00 2021-05-27 15:00:00 Outpatient R ELISSA CAMPOS [facility] [id number] [facility] 2021-05-14 00:00:00 2021-05-14 00:00:00 Orders Only Doctor Unassigned, Old [place] [facility] 1.114 350.1.13.10 4.2.7.2.686 [id number] [facility] 2021-04-30 11:00:00 2021-04-30 11:58:48 Outpatient R DEWAYNE DAMONEUGENIO [facility] [id number] [facility] 2021-04-30 11:00:00 2021-04-30 11:15:00 Imm/Inj Visit Kofi Gonzales Quinn [facility] MULTISPEC IALTY CENTER AND [facility] 1.114 350.1.13.10 4.2.7.2.686 [id number] [facility] 2021-04-30 00:00:00 2021-04-30 00:00:00 Orders Only Doctor Unassigned, Old E[place] [facility] 1.840.114 350.1.13.10 4.2.7.2.686 [id number] [facility] 2021-04-23 13:10:00 2021-04-23 13:10:00 [facility] [id number] 2021-04-23 13:10:00 2021-04-23 13:10:00 [facility] [id number] [facility] 2021-04-23 13:10:00 2021-04-23 13:10:00 Outpatient Yo [facility]ERRARI [facility] [id number] [facility] 2021-04-23 09:15:00 2021-04-23 11:13:29 Outpatient R QUINN DAMON [facility] [id number] [facility] 2021-04-23 09:15:00 2021-04-23 11:13:29 Office Visit Quinn Damon [facility] 1.840.114 350.1.13.10 4.2.7.2.686 [id number] [facility] 2021-04-23 09:15:00 2021-04-23 09:15:00 Outpatient R QUINN DAMON [facility] [id number] [facility] 2021-04-14 14:21:01 2021-04-14 23:59:00 Hospital Encounter Linda Chappell [facility] 1.840.114 350.1.13.10 4.2.7.2.686 [id number] [facility] 2021-04-14 15:45:00 2021-04-14 16:00:00 Office Visit Tamie Marcy [facility] 1..114 350.1.13.10 4.2.7.2.686 [id number] [facility] 2021-04-14 15:45:00 2021-04-14 15:45:00 [facility] [id number] [facility] 2021-04-14 15:45:00 2021-04-14 15:45:00 [facility] [id number] [facility] 2021-04-14 15:45:00 2021-04-14 15:45:00 [facility] [id number] [facility] 2021-04-14 14:20:32 2021-04-14 14:20:32 Hospital Encounter [facility] 1.114 350.1.13.10 4.2.7.2.686 [id number] [facility] 2021-04-14 14:20:32 2021-04-14 14:20:32 Outpatient R LINDA CHAPPELL [facility] [id number] [facility] 2021-04-14 00:00:00 2021-04-14 00:00:00 Outpatient R LINDA CHAPPELL [facility] [id number] [facility] 2021-04-14 00:00:00 2021-04-14 00:00:00 Patient Secure Msg [facility] PRIMARY CARE PAVILLION 1.2840.114 350.1.13.10 4.2.7.2.686 [id number] [facility] 2021-04-14 00:00:00 2021-04-14 00:00:00 Patient Secure Msg Lopez, Geetha [facility] PRIMARY CARE PAVILLION 1.2840.114 350.1.13.10 4.2.7.2.686 [id number] 086 [id number] [facility] 2021-04-13 00:00:00 2021-04-13 00:00:00 Patient Secure g Geetha Lopez [facility] 1.2840.114 350.1.13.10 4.2.7.2.686 [id number] [facility] 2021-04-10 10:00:00 2021-04-10 11:02:57 Outpatient R NIKHIL JUAREZ [facility] [id number] [facility] 2021-04-10 09:41:48 2021-04-10 11:02:57 Office Visit Geetha Lopez [facility] 1.2840.114 350.1.13.10 4.2.7.2.686 [id number] [facility] 2021-03-25 00:00:00 2021-03-25 00:00:00 [facility] 1.2840.114 350.1.13.10 4.2.7.2.686 [id number] [facility] 2021-03-25 00:00:00 2021-03-25 00:00:00 Refill Cielo Kong [facility] PRIMARY CARE PAVILLION 1.2840.114 350.1.13.10 4.2.7.2.686 [id number] [facility] 2021-03-24 00:00:00 2021-03-24 00:00:00 Patient Secure Elissa Campos [facility] 1.2840.114 350.1.13.10 4.2.7.2.686 [id number] [facility] 2021-03-23 11:45:00 2021-03-23 11:45:00 Outpatient MARCY MONTANEZ [facility] [id number] [facility] 2021-03-19 10:00:00 2021-03-19 12:31:52 Outpatient R QUINN DAMON [facility] [id number] [facility] 2021-03-19 09:38:39 2021-03-19 12:31:52 Office Visit Quinn Damon [facility] AND [facility] 1.84.114 350.1.13.10 4.2.7.2.686 [id number] [facility] 2021-03-19 10:00:00 2021-03-19 10:00:00 Outpatient R QUINN DAMON [facility] [id number] [facility] 2021-03-16 00:00:00 2021-03-16 00:00:00 Telephone Marcy Willett [facility] 1.840.114 350.1.13.10 4.2.7.2.686 [id number] [facility] 2021-03-13 00:00:00 2021-03-13 00:00:00 Patient Secure g Linda Chappell [facility] 1..840.114 350.1.13.10 4.2.7.2.686 [id number] [facility] 2021-03-11 08:37:38 2021-03-11 23:59:00 Outpatient R LINDA CHAPPELL [facility] [id number] [facility] 2021-03-11 08:37:38 2021-03-11 23:59:00 Hospital Encounter Linda Chappell [facility] 1..114 350.1.13.10 4.2.7.2.686 [id number] [facility] 2021-03-11 08:37:38 2021-03-11 23:59:00 Outpatient R LINDA CHAPPELL [facility] [id number] [facility] 2021-03-11 08:37:38 2021-03-11 08:37:38 Outpatient LINDA PIERRE [facility] [id number] [facility] 2021-03-09 00:00:00 2021-03-09 00:00:00 Patient Secure [facility] 1.2.840.114 350.1.13.10 4.2.7.2.686 [id number] [facility] 2021-03-09 00:00:00 2021-03-09 00:00:00 Patient Secure Linda Barrow [facility] 1.2.840.114 350.1.13.10 4.2.7.2.686 [id number] [facility] 2021-03-06 00:00:00 2021-03-06 00:00:[address] [facility] 1.2.840.114 350.1.13.10 4.2.7.2.686 [id number] [facility] 2021-03-06 00:00:00 2021-03-06 00:00:00 Patient Secure Elissa Campos [facility] 1.2.840.114 350.1.13.10 4.2.7.2.686 [id number] [facility] 2021-03-03 00:00:00 2021-03-03 00:00:00 Outpatient LINDA PIERRE [facility] [id number] [facility] 2021-03-02 11:00:00 2021-03-02 11:00:00 Outpatient JACOB SAENZ [facility] [id number] [facility] 2021-03-02 11:00:00 2021-03-02 11:00:00 Outpatient JACOB SAENZ [facility] [id number] [facility] 2021-03-02 10:36:38 2021-03-02 10:51:38 Office Visit Jacob Mao [facility] 1.2.840.114 350.1.13.10 4.2.7.2.686 [id number] [facility] 2021-02-23 00:00:00 2021-02-23 00:00:00 Telephone Elissa Campos [facility] 1.2.840.114 350.1.13.10 4.2.7.2.686 [id number] [facility] 2021-02-20 12:41:44 2021-02-20 23:59:00 Hospital Encounter [facility] 1.2.840.114 350.1.13.10 4.2.7.2.686 [id number] [facility] 2021-02-20 13:09:17 2021-02-20 13:18:26 Electrical Tech [facility] 1.2.840.114 350.1.13.10 4.2.7.2.686 [id number] [facility] [facility] 2021-02-20 13:00:00 2021-02-20 13:00:00 Outpatient R ELISSA CAMPOS [facility] [id number] [facility] 2021-02-18 16:30:00 2021-02-18 16:30:00 Outpatient R ELISSA CAMPOS [facility] [id number] [facility] 2021-02-18 15:54:23 2021-02-18 16:24:23 [facility] 1.2.840.114 350.1.13.10 4.2.7.2.686 [id number] [facility] 2021-02-13 11:55:01 2021-02-13 12:10:01 Electrical Tech Visit [facility] Lloyd Loza Rp [facility] 1.114 350.1.13.10 4.2.7.2.686 [id number] [facility] 2021-02-13 10:53:56 2021-02-13 11:46:59 Office Visit Lloyd Loza Rp [facility] 1.114 350.1.13.10 4.2.7.2.686 [id number] [facility] 2021-02-13 11:20:00 2021-02-13 11:20:00 Outpatient R LLOYD LOZA [facility] [id number] [facility] 2021-02-12 10:30:00 2021-02-12 12:50:30 Outpatient R QUINN DAMON [facility] [id number] [facility] 2021-02-12 10:30:00 2021-02-12 12:50:30 Outpatient R QUINN DAMON [facility] [id number] [facility] 2021-02-12 10:22:15 2021-02-12 10:37:15 Imm/Inj Visit Quinn Damon [facility] MULTISPEC [facility] AND [facility] 1. 350.1.13.10 4.2.7.2.686 [id number] [facility] 2021-02-12 10:30:00 2021-02-12 10:30:00 Outpatient R QUINN DAMON [facility] [id number] [facility] 2021-02-12 00:00:00 2021-02-12 00:00:00 Orders Only Doctor Unassigned, Old [place] [facility] 1.114 350.1.13.10 4.2.7.2.686 [id number] [id number] [facility] 2021-02-09 00:00:00 2021-02-09 00:00:00 [facility] 1.84.114 350.1.13.10 4.2.7.2.686 [id number] [facility] 2021-01-08 10:45:00 2021-01-08 12:50:15 Outpatient R QUINN DAMON [facility] [id number] [facility] 2021-01-08 10:45:00 2021-01-08 12:50:15 Outpatient R QUINN DAMON [facility] [id number] [facility] 2021-01-08 10:44:59 2021-01-08 10:59:59 Imm/Inj Visit Quinn Damon [facility] MULTISPEC [facility] AND [facility] 1.84.114 350.1.13.10 4.2.7.2.686 [id number] [facility] 2021-01-08 10:45:00 2021-01-08 10:45:00 Outpatient R QUINN DAMON [facility] [id number] [facility] 2021-01-08 00:00:00 2021-01-08 00:00:00 Orders Only Doctor Unassigned, [place] [facility] 1.84.114 350.1.13.10 4.2.7.2.686 [id number] [facility] 2020-12-25 00:00:00 2020-12-25 00:00:00 Cielo Boo [facility] PRIMARY CARE PAVILLION 1.840.114 350.1.13.10 4.2.7.2.686 [id number] [facility] 2020-12-18 13:00:00 2020-12-18 13:00:00 Outpatient MATTHEW GONZALEZ [facility] [id number] [facility] 2020-12-18 13:00:00 2020-12-18 13:00:00 Outpatient R MATTHEW CANCINO [facility] [id number] [facility] 2020-12-18 12:41:49 2020-12-18 12:56:49 [facility] 350.1.13.10 4.2.7.2.686 [id number] [facility] 2020-12-11 10:15:00 2020-12-11 11:33:34 Outpatient R QUINN DAMON [facility] [id number] [facility] 2020-12-11 10:15:00 2020-12-11 11:33:34 Outpatient R QUINN DAMON [facility] [id number] [facility] 2020-12-11 10:15:00 2020-12-11 10:15:00 Outpatient R QUINN DAMON [facility] [id number] [facility] 2020-12-11 09:54:01 2020-12-11 10:09:01 Imm/Inj Visit Quinn Damon [facility] AND [facility] .114 350.1.13.10 4.2.7.2.686 [id number] [facility] 2020-12-11 00:00:00 2020-12-11 00:00:00 Orders Only Doctor Unassigned, [place] [facility] .114 350.1.13.10 4.2.7.2.686 [id number] [id number] [facility] 2020-12-09 09:33:03 2020-12-09 10:50:56 Office Visit Sonya Quick [facility] 1.114 350.1.13.10 4.2.7.2.686 [id number] [facility] 2020-12-09 10:00:00 2020-12-09 10:00:00 Outpatient SONYA ROBERTO [facility] [id number] [facility] 2020-12-08 00:00:00 2020-12-08 00:00:00 Patient Secure Msg LozaLloyd Rp [facility] 1..114 350.1.13.10 4.2.7.2.686 [id number] [facility] 2020-12-08 00:00:00 2020-12-08 00:00:00 Patient Secure Msg Loza Lloyd Eddy [facility] 1..114 350.1.13.10 4.2.7.2.686 [id number] [facility] 2020-12-04 14:45:00 2020-12-04 14:45:00 Outpatient R LIYAH DAMONEUGENIO [facility] [id number] [facility] 2020-12-04 14:45:00 2020-12-04 14:45:00 Outpatient R QUINN DAMON [facility] [id number] [facility] 2020-12-04 14:16:00 2020-12-04 14:31:00 Office Visit Quinn Damon [facility] 1..114 350.1.13.10 4.2.7.2.686 [id number] [facility] 2020-11-24 10:24:30 2020-11-24 11:24:30 Office Visit Jacob Mao 2, Lilo Mda Procedure [facility] 1..114 350.1.13.10 4.2.7.2.686 [id number] [facility] 2020-11-24 10:30:00 2020-11-24 10:30:00 Outpatient JACOB SAENZ [facility] [id number] [facility] 2020-11-24 10:30:00 2020-11-24 10:30:00 Outpatient JACOB SAENZ [facility] [id number] [facility] 2020-11-24 10:30:00 2020-11-24 10:30:00 Outpatient JACOB SAENZ [facility] [id number] [facility] 2020-11-24 10:30:00 2020-11-24 10:30:00 Outpatient JACOB SAENZ [facility] [id number] [facility] 2020-11-24 00:00:00 2020-11-24 00:00:00 Orders Only Doctor Unassigned, Old [place] [facility] 1.0.114 350.1.13.10 4.2.7.2.686 [id number] [facility] 2020-11-20 00:00:00 2020-11-20 00:00:00 Anatoly Díaz [facility] 1..114 350.1.13.10 4.2.7.2.686 [id number] [id number] [facility] 2020-11-17 00:00:00 2020-11-17 00:00:00 Patient Secure Nikhil Benson [facility] MULTISPEC [facility] 1..114 350.1.13.10 4.2.7.2.686 [id number] [facility] 2020-11-13 10:49:43 2020-11-13 23:59:00 Hospital Encounter Linda Chappell [facility] 1.0.114 350.1.13.10 4.2.7.2.686 [id number] [facility] 2020-11-13 10:49:16 2020-11-13 23:59:00 Hospital Encounter Linda Chappell [facility] 1..114 350.1.13.10 4.2.7.2.686 [id number] [facility] 2020-11-13 13:45:00 2020-11-13 13:45:00 Outpatient R BARAK, AISJANIS [facility] [id number] [facility] 2020-11-13 13:16:57 2020-11-13 13:31:57 Office Visit Matthew Cancino [facility] BLDG. 1.84.114 350.1.13.10 4.2.7.2.686 [id number] [facility] 2020-11-12 00:00:00 2020-11-12 00:00:00 Patient Secure Camelia Benson [facility] 1..114 350.1.13.10 4.2.7.2.686 [id number] [facility] 2020-11-07 10:09:31 2020-11-07 11:44:19 Office Visit Geetha Lopez Vijaya Laxmi [facility] PRIMARY CARE PAVILLION 1.2.114 350.1.13.10 4.2.7.2.686 [id number] [facility] 2020-11-07 11:00:00 2020-11-07 11:00:00 Outpatient R [facility] [id number] [facility] 2020-11-07 00:00:00 2020-11-07 00:00:00 Nazario Robledo [facility] 1..114 350.1.13.10 4.2.7.2.686 [id number] [facility] 2020-11-06 09:15:52 2020-11-06 10:33:04 Office Visit Quinn Damon [facility] MULTISPEC [facility] 1.2114 350.1.13.10 4.2.7.2.686 [id number] [facility] 2020-11-06 09:45:00 2020-11-06 09:45:00 Outpatient R QUINN DAMON [facility] [id number] [facility] 2020-11-04 11:54:53 2020-11-04 12:09:53 Electrical Tech Visit Pcp-Lab Lloyd Loza Rp [facility] PRIMARY CARE PAVILLION 1.2.114 350.1.13.10 4.2.7.2.686 [id number] [facility] 2020-11-04 10:13:16 2020-11-04 11:15:01 Office Visit Matthew Cancino [facility] 1.2.114 350.1.13.10 4.2.7.2.686 [id number] [facility] 2020-11-04 10:30:00 2020-11-04 10:30:00 Outpatient R MATTHEW CANCINO [facility] [id number] [facility] 2020-11-04 00:00:00 2020-11-04 00:00:00 Telephone Lloyd Loza Rp [facility] 1.2.114 350.1.13.10 4.2.7.2.686 [id number] [facility] 2020-11-03 09:35:00 2020-11-03 10:28:00 Surgery Matthew Cancino [facility] 1.2.114 350.1.13.10 4.2.7.2.686 [id number] [facility] 2020-11-03 00:00:00 2020-11-03 00:00:00 Orders Only Doctor Unassigned, [place] [facility] 1.840.114 350.1.13.10 4.2.7.2.686 [id number] [facility] 2020-11-03 00:00:00 2020-11-03 00:00:00 Patient Secure Msg [facility]ielo Kong [facility] 1.284.114 350.1.13.10 4.2.7.2.686 [id number] [facility] 2020-10-28 10:00:00 2020-10-28 10:00:00 Outpatient R LINDA CHAPPELL [facility] [id number] [facility] 2020-10-27 00:00:00 2020-10-27 00:00:00 Patient Secure g Barak [facility] BLDG. 1..840.114 350.1.13.10 4.2.7.2.686 [id number] [facility] 2020-10-02 14:57:30 2020-10-02 16:26:51 Office Visit Quinn Damon [facility] AND [facility] 1.840.114 350.1.13.10 4.2.7.2.686 [id number] [facility] 2020-10-02 15:15:00 2020-10-02 15:15:00 Outpatient R QUINN DAMON [facility] [id number] [facility] 2020-09-30 15:00:00 2020-09-30 15:00:00 Outpatient R MATTHEW CANCINO [facility] [id number] [facility] 2020-09-30 14:38:32 2020-09-30 14:53:32 Office Visit Matthew Cancino [facility] BLDG. 1.2840.114 350.1.13.10 4.2.7.2.686 [id number] [facility] 2020-09-30 00:00:00 2020-09-30 00:00:00 Orders Only Doctor Unassigned, [place] [facility] 1.2840.114 350.1.13.10 4.2.7.2.686 [id number] [facility] 2020-09-09 13:30:00 2020-09-09 13:30:00 Outpatient R ANATOLY RAMOS [facility] [id number] [facility] 2020-09-09 12:57:24 2020-09-09 13:27:24 Office Visit Anatoly Ramos [facility] Building 1.2840.114 350.1.13.10 4.2.7.2.686 [id number] [facility] 2020-09-09 08:47:41 2020-09-09 09:26:29 Office Visit Sonya Quick [facility]ILD[facility] 1.20.114 350.1.13.10 4.2.7.2.686 [id number] [facility] 2020-09-08 12:44:52 2020-09-08 23:59:00 Outpatient R TONA MENDOSA JR [facility] [id number] [facility] 2020-09-08 13:56:59 2020-09-08 16:34:34 Office Visit Faculty, Vascular Surg Marcy Willett [facility] 1.20.114 350.1.13.10 4.2.7.2.686 [id number] [facility] 2020-09-08 15:15:00 2020-09-08 15:15:00 Outpatient R [facility] [id number] [facility] 2020-09-08 00:00:00 2020-09-08 00:00:00 Outpatient TONA VELA JR [facility] [id number] [facility] 2020-09-08 00:00:00 2020-09-08 00:00:00 Carlo Campos [employer] 1.20.114 350.1.13.10 4.2.7.2.686 [id number] [facility] 2020-09-08 00:00:00 2020-09-08 00:00:00 Refcathy Campos [employer] 1.20.114 350.1.13.10 4.2.7.2.686 [id number] [facility] 2020-09-03 13:15:00 2020-09-03 13:15:00 Outpatient MATTHEW GONZALEZ [facility] [id number] [facility] 2020-08-28 12:49:23 2020-08-28 14:13:21 Office [facility] 1.114 350.1.13.10 4.2.7.2.686 [id number] [facility] 2020-08-28 13:00:00 2020-08-28 13:00:00 Outpatient R QUINN DAMON [facility] [id number] [facility] 2020-08-13 00:00:00 2020-08-13 00:00:00 Patient Secure Msg Doctor Unassigned, Old [place] [facility] 1.84.114 350.1.13.10 4.2.7.2.686 [id number] [facility] 2020-08-13 00:00:00 2020-08-13 00:00:00 Telephone Anatoly Ramos [facility] Medical Office Building 1..114 350.1.13.10 4.2.7.2.686 [id number] [facility] 2020-08-13 00:00:00 2020-08-13 00:00:00 Patient Secure Msg Lloyd Loza [facility] 1.2.840.114 350.1.13.10 4.2.7.2.686 [id number] [id number] [facility] 2020-08-12 00:00:00 2020-08-12 00:00:00 Patient Secure Msg [facility] 1.2.840.114 350.1.13.10 4.2.7.2.686 [id number] 080 [id number] [facility] 2020-08-12 00:00:00 2020-08-12 00:00:00 Patient Secure Msg Jeanne [facility] 1.2.840.114 350.1.13.10 4.2.7.2.686 [id number] 053 [id number] [facility] 2020-08-12 00:00:00 2020-08-12 00:00:00 Anatoly Díaz [facility] 1.2.840.114 350.1.13.10 4.2.7.2.686 [id number] [facility] 2020-08-11 09:06:35 2020-08-11 13:31:13 Office Visit Dago Elolidia Eddy [facility] 1.2.840.114 350.1.13.10 4.2.7.2.686 [id number] [facility] 2020-08-11 10:00:00 2020-08-11 10:00:00 Outpatient R LLOYD LOZA [facility] [id number] [facility] 2020-08-11 08:54:33 2020-08-11 08:59:48 Electrical Tech Visit [facility] Lloyd Loza [facility] 1.2.840.114 350.1.13.10 4.2.7.2.686 [id number] [facility] 2020-08-11 00:00:00 2020-08-11 00:00:00 Patient Secure Msg Loza [facility] 1.2.840.114 350.1.13.10 4.2.7.2.686 [id number] 053 [id number] [facility] 2020-08-07 00:00:00 2020-08-07 00:00:00 Patient Secure Msg Loza [facility] 1.2.840.114 350.1.13.10 4.2.7.2.686 [id number] 053 [id number] [facility] 2020-08-06 09:17:09 2020-08-06 23:59:00 Hospital Encounter Sonya Quick 1, FDC Rad Oncology Linac [facility] BUILDING 1.2.840.114 350.1.13.10 4.2.7.2.686 [id number] [facility] 2020-08-05 09:14:15 2020-08-05 23:59:00 Hospital Encounter Sonya Quick 1, FDC Rad Oncology Linac [facility] BUILDING 1.2.840.114 350.1.13.10 4.2.7.2.686 [id number] [facility] 2020-08-05 09:14:50 2020-08-05 15:58:48 [facility] 1.2.840.114 350.1.13.10 4.2.7.2.686 [id number] [facility] 2020-08-04 09:30:00 2020-08-04 23:59:00 Hospital Encounter Sonya Quick 1, FDC [facility] 1.2.840.114 350.1.13.10 4.2.7.2.686 [id number] [facility] 2020-08-04 08:04:23 2020-08-04 08:25:33 Electrical Tech Visit [facility] Lloyd Loza [facility] 1.2.840.114 350.1.13.10 4.2.7.2.686 [id number] [facility] 2020-08-04 08:15:00 2020-08-04 08:15:00 Outpatient R LLOYD LOZA [facility] [id number] [facility] 2020-08-01 09:01:05 2020-08-01 23:59:00 Hospital Encounter Sonya Quick 1, FDC Rad Oncology Lin[facility] 1.2.840.114 350.1.13.10 4.2.7.2.686 [id number] [facility] 2020-07-31 09:30:00 2020-07-31 23:59:00 Hospital Encounter Sonya Quick 1, FDC Rad Oncology Linac [facility] 1.2.840.114 350.1.13.10 4.2.7.2.686 [id number] [facility] 2020-07-31 14:20:34 2020-07-31 16:19:47 [facility] 1.2.840.114 350.1.13.10 4.2.7.2.686 [id number] [facility] 2020-07-31 14:45:00 2020-07-31 14:45:00 Outpatient R QUINN DAMON [facility] [id number] [facility] 2020-07-31 09:30:00 2020-07-31 09:30:00 Outpatient R SONYA QUICK [facility] [id number] [facility] 2020-07-31 08:30:07 2020-07-31 08:45:07 Electrical Tech Visit [facility] Lloyd Loza [facility] 1.2840.114 350.1.13.10 4.2.7.2.686 [id number] [facility] 2020-07-31 00:00:00 2020-07-31 00:00:00 Case Management Holden Griffith [facility] 1.2840.114 350.1.13.10 4.2.7.2.686 [id number] [facility] 2020-07-30 10:00:00 2020-07-30 10:00:00 Outpatient R LLOYD LOZA [facility] [id number] [facility] 2020-07-29 00:00:00 2020-07-29 00:00:00 Case Management Holden Griffith [facility] 1.2840.114 350.1.13.10 4.2.7.2.686 [id number] [facility] 2020-07-29 00:00:00 2020-07-29 00:00:00 Telephone [facility] 1.2840.114 350.1.13.10 4.2.7.2.686 [id number] [facility] 2020-07-28 09:12:17 2020-07-28 23:59:00 Hospital Encounter Sonya Quick 1, Efrain Hogan [facility] 1.2840.114 350.1.13.10 4.2.7.2.686 [id number] [facility] 2020-07-28 09:30:54 2020-07-28 11:30:54 Nurse Visit 3, [facility] Adult Infusion Nurse Lloyd Loza Rp [facility] 1.2.840.114 350.1.13.10 4.2.7.2.686 [id number] [facility] 2020-07-28 11:00:00 2020-07-28 11:00:00 Outpatient R LLOYD LOZA [facility] [id number] [facility] 2020-07-25 09:00:33 2020-07-25 23:59:00 Hospital Encounter Sonya Quick 1, [facility] Linac [facility] 1.2.840.114 350.1.13.10 4.2.7.2.686 [id number] [facility] 2020-07-25 15:24:04 2020-07-25 15:39:04 Electrical Tech Visit Pcp-Lab Lloyd Loza [facility] PRIMARY CARE PAVILLION 1.2840.114 350.1.13.10 4.2.7.2.686 [id number] [facility] 2020-07-25 09:56:28 2020-07-25 11:04:13 Office Visit [facility]appell [facility] 1.2840.114 350.1.13.10 4.2.7.2.686 [id number] [facility] 2020-07-25 10:00:00 2020-07-25 10:00:00 Outpatient LINDA PIERRE [facility] [id number] [facility] 2020-07-25 09:29:21 2020-07-25 09:41:53 Electrical Tech Visit [facility] Lloyd Loza [facility] 1.2840.114 350.1.13.10 4.2.7.2.686 [id number] [facility] 2020-07-25 00:00:00 2020-07-25 00:00:00 Telephone Linda Chappell [facility] 1.2840.114 350.1.13.10 4.2.7.2.686 [id number] [facility] 2020-07-24 09:21:34 2020-07-24 23:59:00 Hospital Encounter Sonya Quick 1, FDC Rad Oncology Linac [facility] 1.2.840.114 350.1.13.10 4.2.7.2.686 [id number] [facility] 2020-07-24 00:00:00 2020-07-24 00:00:00 Patient Secure Msg Dilan, Cielo Mary Jo [facility] PRIMARY CARE PAVILLION 1.2.840.114 350.1.13.10 4.2.7.2.686 [id number] [facility] 2020-07-23 09:30:00 2020-07-23 23:59:00 Hospital Encounter Sonya Quick 1, FDC Rad Oncology Linac [facility] BUILDING 1.2.840.114 350.1.13.10 4.2.7.2.686 [id number] 181 [id number] [facility] 2020-07-22 08:47:06 2020-07-22 23:59:00 Hospital Encounter Sonya Quick 1, FDC Rad Oncology Linac [facility] BUILDING 1.2.840.114 350.1.13.10 4.2.7.2.686 [id number] [facility] 2020-07-22 08:48:02 2020-07-22 12:08:15 Treatment Management Sonya Quick [facility] BUILD[facility] 1.2.840.114 350.1.13.10 4.2.7.2.686 [id number] [facility] 2020-07-22 00:00:00 2020-07-22 00:00:00 Patient Secure Msg Dilan, Cielo Mary Jo [facility] PRIMARY CARE PAVILLION 1.2.840.114 350.1.13.10 4.2.7.2.686 [id number] [id number] [facility] 2020-07-21 08:51:52 2020-07-21 23:59:00 Hospital Encounter Sonya Quick 1, FDC Rad Oncology Linac [facility] 1.2.840.114 350.1.13.10 4.2.7.2.686 [id number] [facility] 2020-07-21 00:00:00 2020-07-21 00:00:00 Telephone [facility] 1.2.840.114 350.1.13.10 4.2.7.2.686 [id number] [facility] 2020-07-18 09:01:10 2020-07-18 23:59:00 Hospital Encounter QuickSonya roca 1, FDC Rad Oncology Lin[facility] 1.2.840.114 350.1.13.10 4.2.7.2.686 [id number] 181 [id number] [facility] 2020-07-18 00:00:00 2020-07-18 00:00:00 Patient Secure Msg Sonya Quick [facility] 1.2.840.114 350.1.13.10 4.2.7.2.686 [id number] 181 [id number] [facility] 2020-07-17 09:03:15 2020-07-17 23:59:00 Hospital Encounter Sonya Quick 1, F[facility] Rad Oncology [facility] 1.2.840.114 350.1.13.10 4.2.7.2.686 [id number] 181 [id number] [facility] 2020-07-17 00:00:00 2020-07-17 00:00:00 Case Management Mi Ngo [facility] 1.2.840.114 350.1.13.10 4.2.7.2.686 [id number] [facility] 2020-07-16 09:05:04 2020-07-16 23:59:00 Hospital Encounter Sonya Quick 1, FDC Rad Oncology Linac [facility] 1.2.840.114 350.1.13.10 4.2.7.2.686 [id number] 181 [id number] [facility] 2020-07-15 09:01:30 2020-07-15 23:59:00 Hospital Encounter Sonya Quick 1, FDC Rad Oncology Linac [facility] 1.2.840.114 350.1.13.10 4.2.7.2.686 [id number] 181 [id number] [facility] 2020-07-15 09:02:49 2020-07-15 10:26:03 Treatment Management Angel Helen GOMEZ [facility] 1.2.840.114 350.1.13.10 4.2.7.2.686 [id number] 181 [id number] [facility] 2020-07-14 09:02:39 2020-07-14 23:59:00 Hospital Encounter Sonya Quick 1, FDC Rad Oncology [facility] 1.2.840.114 350.1.13.10 4.2.7.2.686 [id number] 181 [id number] [facility] 2020-07-11 09:30:00 2020-07-11 23:59:00 Hospital Encounter Sonya Quick 1, FDC Rad Oncology Lin[facility] 1.2.840.114 350.1.13.10 4.2.7.2.686 [id number] 181 [id number] [facility] 2020-07-11 11:00:00 2020-07-11 11:00:00 Outpatient LLOYD FRAZIER [facility] [id number] [facility] 2020-07-11 09:41:46 2020-07-11 09:56:46 Nurse Visit Nurse, [facility] Lloyd Finnegan [facility] 1.2.840.114 350.1.13.10 4.2.7.2.686 [id number] [id number] [facility] 2020-07-10 09:30:00 2020-07-10 23:59:00 Hospital Encounter Sonya Quick 1, [facility] Rad Oncology Linac [facility] 1.2.840.114 350.1.13.10 4.2.7.2.686 [id number] [facility] 2020-07-09 09:17:07 2020-07-09 23:59:00 Hospital Encounter Sonya Quick 1, [facility] Rad Oncology [facility] 1.2.840.114 350.1.13.10 4.2.7.2.686 [id number] [facility] 2020-07-08 09:19:55 2020-07-08 23:59:00 Hospital Encounter Sonya Quick 1, [facility] Rad Oncology Linac [facility] 1.2.840.114 350.1.13.10 4.2.7.2.686 [id number] [facility] 2020-07-08 09:20:22 2020-07-08 11:48:35 Treatment Management Sonya QuickG [facility] 1.2.840.114 350.1.13.10 4.2.7.2.686 [id number] [facility] 2020-07-07 09:09:24 2020-07-07 23:59:00 Hospital Encounter Sonya Quick 1, FDC Rad Oncology Linac [facility] 1.2.840.114 350.1.13.10 4.2.7.2.686 [id number] [facility] 2020-07-07 09:58:44 2020-07-07 11:58:44 Nurse Visit 3, [facility] Adult Infusion Nurse Dago, Bagi Rp [facility] 1.2840.114 350.1.13.10 4.2.7.2.686 [id number] 053 [id number] [facility] 2020-07-07 11:00:00 2020-07-07 11:00:00 Outpatient R LLOYD LOZA [facility] [id number] [facility] 2020-07-07 09:30:00 2020-07-07 09:30:00 Outpatient R SONYA QUICK [facility] [id number] [facility] 2020-07-07 09:08:54 2020-07-07 09:08:54 Hospital Encounter Sonya Quick 1, [facility] Linac [facility] 1.2.840.114 350.1.13.10 4.2.7.2.686 [id number] [facility] 2020-07-04 00:00:00 2020-07-04 00:00:00 Telephone Lloyd Loza [facility] 1.2840.114 350.1.13.10 4.2.7.2.686 [id number] [facility] 2020-07-03 15:15:00 2020-07-03 15:15:00 Outpatient R QUINN DAMON [facility] [id number] [facility] 2020-07-03 14:58:01 2020-07-03 15:13:01 Office Visit Quinn Damon [facility] MULTISPEC [facility]TY [facility]ENTER AND [facility] 1.840.114 350.1.13.10 4.2.7.2.686 [id number] [facility] 2020-07-03 14:31:32 2020-07-03 14:46:32 Electrical Tech Visit Vls-Lab Lloyd Loza Rp [facility] 1.2840.114 350.1.13.10 4.2.7.2.686 [id number] [facility] 2020-07-02 11:30:00 2020-07-02 11:30:00 Outpatient R ELISSA CAMPOS [facility] [id number] [facility] 2020-07-02 08:00:04 2020-07-02 08:30:04 Telemedici ne Visit Elissa Campos [facility] 1.114 350.1.13.10 4.2.7.2.686 [id number] 084 [id number] [facility] 2020-07-02 00:00:00 2020-07-02 00:00:00 Patient Secure Msg Doctor Unassigned, Old Eucha [facility] 1.114 350.1.13.10 4.2.7.2.686 [id number] [id number] [facility] 2020-06-26 10:57:04 2020-06-26 11:19:13 Electrical Tech Visit [facility] Cielo Kong [facility] 1.114 350.1.13.10 4.2.7.2.686 [id number] [facility] 2020-06-26 11:00:00 2020-06-26 11:00:00 Outpatient R SONYA QUICK [facility] [id number] [facility] 2020-06-26 10:44:16 2020-06-26 10:59:16 Laboratory Only Only, [facility] Test Sonya Quick [facility] 1.114 350.1.13.10 4.2.7.2.686 [id number] [facility] 2020-06-24 12:04:05 2020-06-24 23:59:00 Hospital Encounter Linda Chappell [facility], Julie K [facility] ([facility]) 1.114 350.1.13.10 4.2.7.2.686 [id number] [facility] 2020-06-24 12:30:00 2020-06-24 12:30:00 Outpatient R LINDA CHAPPELL [facility] [id number] [facility] 2020-06-23 00:00:00 2020-06-23 00:00:00 Case Management Lloyd Loza [facility] 1.114 350.1.13.10 4.2.7.2.686 [id number] [facility] 2020-06-17 11:00:00 2020-06-17 11:00:00 Outpatient R LINDA CHAPPELL [facility] [id number] [facility] 2020-06-13 06:30:00 2020-06-13 23:59:00 Hospital Encounter Sonya Quick [facility] 1..114 350.1.13.10 4.2.7.2.686 [id number] [facility] 2020-06-13 06:30:00 2020-06-13 06:30:00 Outpatient R SONYA QUICK [facility] [id number] [facility] 2020-06-12 09:20:00 2020-06-12 09:20:00 Outpatient R CIELO KONG [facility] [id number] [facility] 2020-06-12 07:00:54 2020-06-12 07:20:54 Telemedici ne Visit Cielo Kong [facility] 1.114 350.1.13.10 4.2.7.2.686 [id number] [facility] 2020-06-11 00:00:00 2020-06-11 00:00:00 Telephone Linda Chappell [facility] 1.84.114 350.1.13.10 4.2.7.2.686 [id number] [facility] 2020-06-09 15:30:00 2020-06-09 15:30:00 Outpatient R TAMIEMARCY BANDA [facility] [id number] [facility] 2020-06-09 15:30:00 2020-06-09 15:30:00 Outpatient R TAMIEMARCY BANDA [facility] [id number] [facility] 2020-06-09 15:30:00 2020-06-09 15:30:00 Outpatient R [facility] [id number] [facility] 2020-06-09 00:00:00 2020-06-09 00:00:00 Orders Only Doctor Unassigned, Old Euch[place] [facility] 1.840.114 350.1.13.10 4.2.7.2.686 [id number] [facility] 2020-06-06 00:00:00 2020-06-06 00:00:00 Nikhil Nunez [facility] 1..114 350.1.13.10 4.2.7.2.686 [id number] [id number] [facility] 2020-06-05 14:05:39 2020-06-05 14:27:40 Office Visit Quinn Damon [facility] M[facility]ISPEC [facility] 1..114 350.1.13.10 4.2.7.2.686 [id number] [facility] 2020-06-05 13:07:21 2020-06-05 14:27:29 Imm/Inj Visit Quinn Damon [facility]PEC [facility] 1..114 350.1.13.10 4.2.7.2.686 [id number] [facility] 2020-06-05 13:15:00 2020-06-05 13:15:00 Outpatient R KOFI NAVASQUINN AGUILAR [facility] [id number] [facility] 2020-06-05 00:00:00 2020-06-05 00:00:00 Patient Secure Msg Doctor Unassigned, [place] [facility] 1.2840.114 350.1.13.10 4.2.7.2.686 [id number] [facility] 2020-06-05 00:00:00 2020-06-05 00:00:00 Telephone Anatoly Ramos [facility] Medical Office Building 1.0.114 350.1.13.10 4.2.7.2.686 [id number] [facility] 2020-06-04 00:00:00 2020-06-04 00:00:00 Case Management Linda Chappell [facility] 1.840.114 350.1.13.10 4.2.7.2.686 [id number] [id number] [facility] 2020-06-03 09:34:58 2020-06-03 15:18:14 Office Visit Sonya Quick [facility] 1.2840.114 350.1.13.10 4.2.7.2.686 [id number] [facility] 2020-06-03 11:30:00 2020-06-03 11:30:00 Outpatient SONYA ROBERTO [facility] [id number] [facility] 2020-06-03 10:00:00 2020-06-03 10:00:00 Outpatient SONYA ROBERTO [facility] [id number] [facility] 2020-06-03 00:00:00 2020-06-03 00:00:00 Orders Only Doctor Unassigned, [place] [facility] 1.2840.114 350.1.13.10 4.2.7.2.686 [id number] [facility] 2020-06-02 11:19:29 2020-06-02 12:31:31 Office Visit Anatoly Ramos [facility] 1.2.840.114 350.1.13.10 4.2.7.2.686 [id number] [facility] 2020-06-02 11:30:00 2020-06-02 11:30:00 Outpatient R ANATOLY RAMOS [facility] [id number] [facility] 2020-05-30 11:06:37 2020-05-30 11:21:37 Electrical Tech Visit Pcp-Lab Unknown, Attending [facility] PRIMARY CARE PAVILLION 1.2.840.114 350.1.13.10 4.2.7.2.686 [id number] [facility] 2020-05-30 09:47:09 2020-05-30 10:07:09 Office Visit Lloyd Loza Rp [facility] 1.2.840.114 350.1.13.10 4.2.7.2.686 [id number] [facility] 2020-05-30 10:00:00 2020-05-30 10:00:00 Outpatient LLOYD FRAZIER [facility] [id number] [facility] 2020-05-28 11:00:00 2020-05-28 11:00:00 Outpatient JORGE AVERY [facility] [id number] [facility] 2020-05-24 00:00:00 2020-05-24 00:00:00 Patient Outreach Jorge Ferarri [facility] PR[facility] CARE PAV[facility] 1.2.840.114 350.1.13.10 4.2.7.2.686 [id number] [facility] 2020-05-23 00:00:00 2020-05-23 00:00:00 Patient Secure Msg Lloyd Loza [facility] 1.2.840.114 350.1.13.10 4.2.7.2.686 [id number] [facility] 2020-05-23 00:00:00 2020-05-23 00:00:00 Patient Secure Msg Lloyd Loza [facility] 1.2.840.114 350.1.13.10 4.2.7.2.686 [id number] [facility] 2020-05-14 00:00:00 2020-05-14 00:00:00 Patient Secure g [facility] 1.2.840.114 350.1.13.10 4.2.7.2.686 [id number] [facility] 2020-05-08 15:19:31 2020-05-08 15:34:31 Imm/Inj Visit Quinn Damon [facility] MULTISPEC IAY CENTER AND [facility] 1.2.840.114 350.1.13.10 4.2.7.2.686 [id number] [facility] 2020-05-08 15:30:00 2020-05-08 15:30:00 Outpatient R QUINN DAMON [facility] [id number] [facility] 2020-05-08 00:00:00 2020-05-08 00:00:00 Orders Only Doctor Unassigned, [place] [facility] 1.2.840.114 350.1.13.10 4.2.7.2.686 [id number] [facility] 2020-04-18 00:00:00 2020-04-18 00:00:00 Patient Secure Jacob Mao [facility] - [facility] 1.2.840.114 350.1.13.10 4.2.7.2.686 [id number] [facility] 2020-04-14 11:15:00 2020-04-14 11:15:00 Outpatient R JACOB MAO [facility] [id number] [facility] 2020-04-14 07:46:37 2020-04-14 08:01:37 Telemedici ne Visit Jacob Mao [facility] 1..114 350.1.13.10 4.2.7.2.686 [id number] [facility] 2020-04-14 00:00:00 2020-04-14 00:00:00 Carlo [facility] 1..114 350.1.13.10 4.2.7.2.686 [id number] [facility] 2020-04-12 00:00:00 2020-04-12 00:00:00 [facility] 1..114 350.1.13.10 4.2.7.2.686 [id number] [facility] 2020-04-10 11:15:00 2020-04-10 11:15:00 Outpatient R QUINN DAMON [facility] [id number] [facility] 2020-04-10 10:52:58 2020-04-10 11:07:58 Imm/Inj Visit Quinn Damon [facility]PEC [facility] 1.114 350.1.13.10 4.2.7.2.686 [id number] [facility] 2020-04-03 14:02:53 2020-04-03 14:17:53 Office Visit Quinn Damon [facility]PEC [facility] 1..114 350.1.13.10 4.2.7.2.686 [id number] [facility] 2020-04-03 14:15:00 2020-04-03 14:15:00 Outpatient R QUINN DAMON [facility] [id number] [facility] 2020-04-03 12:53:09 2020-04-03 13:53:09 Office Visit Jacob Mao 2, Lilo Mda Procedure Rm [facility] 1..114 350.1.13.10 4.2.7.2.686 [id number] [facility] 2020-04-02 09:54:06 2020-04-02 10:50:31 Office Visit Kaylyn Manriquez [facility] 1..114 350.1.13.10 4.2.7.2.686 [id number] [facility] 2020-04-02 10:00:00 2020-04-02 10:00:00 Outpatient R KAYLYN MANRIQUEZ [facility] [id number] [facility] 2020-03-25 09:08:32 2020-03-25 23:59:00 Hospital Encounter Jacob Mao [facility] 1.114 350.1.13.10 4.2.7.2.686 [id number] [facility] 2020-03-25 09:08:32 2020-03-25 23:59:00 Outpatient R JACOB MAO [facility] [id number] [facility] 2020-03-25 00:00:00 2020-03-25 00:00:00 Outpatient R JACOB MAO [facility] [id number] [facility] 2020-03-11 10:43:06 2020-03-11 14:19:24 Office Visit Sonya Quick [facility] 1..114 350.1.13.10 4.2.7.2.686 [id number] [facility] 2020-03-11 11:00:00 2020-03-11 11:00:00 Outpatient R SONYA QUICK [facility] [id number] [facility] 2020-03-11 00:00:00 2020-03-11 00:00:00 Telephone Elissa Campos [facility] 1.2.840.114 350.1.13.10 4.2.7.2.686 [id number] [facility] 2020-03-11 00:00:00 2020-03-11 00:00:00 Telephone Martell Fontenot [facility] 1.2.840.114 350.1.13.10 4.2.7.2.686 [id number] [facility] 2020-03-11 00:00:00 2020-03-11 00:00:00 Patient Secure MsLloyd Harvey [facility] 1.2840.114 350.1.13.10 4.2.7.2.686 [id number] [id number] [facility] 2020-03-10 00:00:00 2020-03-10 00:00:00 Case Management Gibran Chappell [facility] 1.2.840.114 350.1.13.10 4.2.7.2.686 [id number] [facility] 2020-03-10 00:00:00 2020-03-10 00:00:00 Prep For Surgery Martell Fontenot [facility] 1.2840.114 350.1.13.10 4.2.7.2.686 [id number] [facility] 2020-03-07 11:41:28 2020-03-07 12:01:28 Office Visit Lloyd Loza Rp [facility] 1.2.840.114 350.1.13.10 4.2.7.2.686 [id number] [facility] 2020-03-07 12:00:00 2020-03-07 12:00:00 Outpatient R LLOYD LOZA [facility] [id number] [facility] 2020-03-06 00:00:00 2020-03-06 00:00:00 Patient Secure Msg Doctor Unassigned, [place] [facility] 1.2.840.114 350.1.13.10 4.2.7.2.686 [id number] [facility] 2020-02-28 00:00:00 2020-02-28 00:00:00 Telephone Kamlesh Egan [facility] 1.2.840.114 350.1.13.10 4.2.7.2.686 [id number] [facility] 2020-02-28 00:00:00 2020-02-28 00:00:00 RefNazario Herr [facility] 1.2.840.114 350.1.13.10 4.2.7.2.686 [id number] [facility] 2020-02-28 00:00:00 2020-02-28 00:00:00 RefAnatoly Rees [facility] 1.2.840.114 350.1.13.10 4.2.7.2.686 [id number] [facility] 2020-02-28 00:00:00 2020-02-28 00:00:00 Telephone Doctor Unassigned, [place] [facility] PRIMARY CARE PAVILLION 1.2.840.114 350.1.13.10 4.2.7.2.686 [id number] [facility] 2020-02-27 00:00:00 2020-02-27 00:00:00 Case Management Fercho Vivas [facility] 1.2.840.114 350.1.13.10 4.2.7.2.686 [id number] [facility] 2020-02-22 00:00:00 2020-02-22 00:00:00 Patient Secure Msg Doctor Unassigned, Old Eucha [facility] 1.114 350.1.13.10 4.2.7.2.686 [id number] [facility] 2020-02-21 11:00:00 2020-02-21 11:00:00 Outpatient R DAYLIN JACOB [facility] [id number] [facility] 2020-02-21 09:33:50 2020-02-21 09:48:50 Telemedici ne Visit Jacob Mao [facility] 1.114 350.1.13.10 4.2.7.2.686 [id number] [facility] 2020-02-19 15:36:16 2020-02-19 23:59:00 Hospital Encounter Lloyd Loza Iveth [facility] 1.114 350.1.13.10 4.2.7.2.686 [id number] [facility] 2020-02-19 15:36:16 2020-02-19 23:59:00 Outpatient R LLOYD LOZA [facility] [id number] [facility] 2020-02-19 00:00:00 2020-02-19 00:00:00 Outpatient R LLOYD LOZA [facility] [id number] [facility] 2020-02-14 12:52:29 2020-02-14 13:07:29 Office Visit Quinn Damon [facility] MULTISPEC [facility] 1.114 350.1.13.10 4.2.7.2.686 [id number] [facility] 2020-02-14 13:00:00 2020-02-14 13:00:00 Outpatient R QUINN DAMON [facility] [id number] [facility] 2020-02-04 00:00:00 2020-02-04 00:00:00 Nazario Robledo [facility] 1.2.840.114 350.1.13.10 4.2.7.2.686 [id number] [id number] [facility] 2020-02-04 00:00:00 2020-02-04 00:00:00 Nazario Robledo [facility] 1.2.840.114 350.1.13.10 4.2.7.2.686 [id number] [facility] 2020-01-31 09:07:18 2020-02-01 11:41:56 Nurse Visit 2, [facility] Adult Infusion Nurse Lloyd Loza [facility] 1.2840.114 350.1.13.10 4.2.7.2.686 [id number] [facility] 2020-01-31 10:00:00 2020-01-31 10:00:00 Outpatient LLOYD FRAZIER [facility] [id number] [facility] 2020-01-29 10:18:55 2020-01-29 10:33:55 Electrical Tech Visit Pcp-Lab Lloyd Loza [facility] PRIMARY CARE PAVILLION 1.2840.114 350.1.13.10 4.2.7.2.686 [id number] [facility] 2020-01-29 10:30:00 2020-01-29 10:30:00 Outpatient LLOYD FRAZIER [facility] [id number] [facility] 2020-01-25 10:00:29 2020-01-28 12:06:41 Nurse Visit 2, [facility] Adult Infusion Nurse Lloyd Loza [facility] 1.2.840.114 350.1.13.10 4.2.7.2.686 [id number] [facility] 2020-01-25 09:12:06 2020-01-25 09:57:43 Office Visit Lloyd Loza Rp [facility] 1.2840.114 350.1.13.10 4.2.7.2.686 [id number] [facility] 2020-01-25 09:20:00 2020-01-25 09:20:00 [id number] 2020-01-25 00:00:00 2020-01-25 00:00:00 Patient Secure Msg Doctor Unassigned, [place] [facility] 1.114 350.1.13.10 4.2.7.2.686 [id number] [facility] 2020-01-24 08:18:25 2020-01-24 11:18:25 Nurse Visit 2, [facility] Adult Infusion Nurse Dago, Elolidia [facility] 1.114 350.1.13.10 4.2.7.2.686 [id number] [facility] 2020-01-24 08:30:00 2020-01-24 08:30:00 [facility] [id number] [facility] 2020-01-23 00:00:00 2020-01-23 00:00:00 Refill Doctor Unassigned, Old Eucha [facility] 1.114 350.1.13.10 4.2.7.2.686 [id number] [facility] 2020-01-22 15:30:00 2020-01-22 15:30:00 Outpatient R DAGOELOLidia [facility] [id number] [facility] 2020-01-22 15:09:11 2020-01-22 15:24:11 Electrical Tech Visit Pob, Adc Lab Main Dago Elolidia [facility] 1.114 350.1.13.10 4.2.7.2.686 [id number] [facility] 2020-01-10 08:59:13 2020-01-10 10:59:13 Nurse Visit 2, [facility] 1.2.840.114 350.1.13.10 4.2.7.2.686 [id number] [facility] 2020-01-10 10:00:00 2020-01-10 10:00:00 Outpatient [facility] [id number] [facility] 2020-01-10 08:28:01 2020-01-10 08:53:30 Electrical Tech Visit [facility] 1.2.840.114 350.1.13.10 4.2.7.2.686 [id number] [facility] 2020-01-04 13:17:55 2020-01-09 13:27:44 Nurse Visit 2, [facility] Adult Infusion Nurse Dago [facility] 1.2.840.114 350.1.13.10 4.2.7.2.686 [id number] [facility] 2020-01-04 13:30:00 2020-01-04 13:30:00 Outpatient R LLOYD LOZA [facility] [id number] [facility] 2020-01-03 12:52:17 2020-01-03 14:13:52 Office Visit Quinn Damon [facility] 1.2840.114 350.1.13.10 4.2.7.2.686 [id number] [facility] 2020-01-03 13:15:00 2020-01-03 13:15:00 Outpatient R QUINN DAMON [facility] [id number] [facility] 2020-01-03 07:59:23 2020-01-03 10:59:23 Nurse Visit 3, [facility] 1.2.840.114 350.1.13.10 4.2.7.2.686 [id number] [facility] 2020-01-02 11:00:00 2020-01-02 11:00:00 Outpatient R ELISSA CAMPOS [facility] [id number] [facility] 2020-01-02 06:58:01 2020-01-02 07:28:01 Telemedici ne Visit Elissa Campos [facility] 1.2840.114 350.1.13.10 4.2.7.2.686 [id number] [facility] 2020-01-02 00:00:00 2020-01-02 00:00:00 [facility] 1.840.114 350.1.13.10 4.2.7.2.686 [id number] [facility] 2020-01-02 00:00:00 2020-01-02 00:00:00 Refill Nazario Scott [facility] 1.2840.114 350.1.13.10 4.2.7.2.686 [id number] [facility] 2020-01-02 00:00:00 2020-01-02 00:00:00 [facility] 1.2840.114 350.1.13.10 4.2.7.2.686 [id number] [facility] 2020-01-02 00:00:00 2020-01-02 00:00:00 Refill Nazario Scott [facility] 1.2840.114 350.1.13.10 4.2.7.2.686 [id number] [facility] 2019-12-31 10:31:03 2019-12-31 12:26:50 Office Visit Lloyd Loza [facility] 1.2840.114 350.1.13.10 4.2.7.2.686 [id number] [facility] 2019-12-31 12:00:00 2019-12-31 12:00:00 Outpatient R LLOYD LOZA [facility] [id number] [facility] 2019-12-31 11:23:18 2019-12-31 11:33:18 Electrical Tech Visit c-Lab Lloyd Loza [facility] 1.2840.114 350.1.13.10 4.2.7.2.686 [id number] [facility] 2019-12-20 10:56:18 2019-12-20 12:56:18 Nurse Visit 2, [facility] 1.2840.114 350.1.13.10 4.2.7.2.686 [id number] [facility] 2019-12-20 11:00:00 2019-12-20 11:00:00 Outpatient R LLOYD LOZA [facility] [id number] [facility] 2019-12-17 10:23:10 2019-12-17 10:33:10 Electrical Tech Visit Pcp-Kamlesh Low [facility] 1.2840.114 350.1.13.10 4.2.7.2.686 [id number] [facility] 2019-12-17 10:30:00 2019-12-17 10:30:00 Outpatient R KAMLESH EGAN [facility] [id number] [facility] 2019-12-14 11:14:30 2019-12-14 12:44:30 Nurse Visit 3, [facility] 1.2840.114 350.1.13.10 4.2.7.2.686 [id number] [facility] 2019-12-14 11:30:00 2019-12-14 11:30:00 Outpatient R LLOYD LOZA [facility] [id number] [facility] 2019-12-14 00:00:00 2019-12-14 00:00:00 Patient Secure Msg Kofi GonzalesQuinn Yaw [facility] [facility]. 1..114 350.1.13.10 4.2.7.2.686 [id number] [facility] 2019-12-13 08:47:55 2019-12-13 11:47:55 Nurse Visit 2, [facility] Adult Infusion Nurse Lloyd Loza [facility] 1..114 350.1.13.10 4.2.7.2.686 [id number] [facility] 2019-12-13 09:00:00 2019-12-13 09:00:00 Outpatient R LLOYD LOZA [facility] [id number] [facility] 2019-12-12 00:00:00 2019-12-12 00:00:00 Case Management Lloyd Loza [facility] 1..114 350.1.13.10 4.2.7.2.686 [id number] [facility] 2019-12-10 10:30:00 2019-12-10 10:30:00 Outpatient R UNKNOWN, ATTENDING [facility] [id number] [facility] 2019-12-10 10:18:40 2019-12-10 10:28:40 Electrical Tech Visit Pcp-Lab Unknown, Attending [facility] 1..114 350.1.13.10 4.2.7.2.686 [id number] [facility] 2019-12-10 00:00:00 2019-12-10 00:00:00 Patient Secure Msg Lloyd Loza Rp [facility] 1..114 350.1.13.10 4.2.7.2.686 [id number] [facility] 2019-12-03 10:23:19 2019-12-03 14:24:26 Office Visit Dago Elolidia Eddy [facility] 1.2840.114 350.1.13.10 4.2.7.2.686 [id number] [facility] 2019-12-03 10:40:00 2019-12-03 10:40:00 Outpatient R LLODY LOZA [facility] [id number] [facility] 2019-12-03 00:00:00 2019-12-03 00:00:00 Refill Anatoly Ramos [facility] 1..114 350.1.13.10 4.2.7.2.686 [id number] [facility] 2019-11-27 07:52:16 2019-12-01 15:18:20 Telemedici ne Visit Linda Chappell [facility] 1..114 350.1.13.10 4.2.7.2.686 [id number] 080 [id number] [facility] 2019-11-30 00:00:00 2019-11-30 00:00:00 Refill Doctor Unassigned, [facility] 1.114 350.1.13.10 4.2.7.2.686 [id number] [facility] 2019-11-29 14:45:00 2019-11-29 14:45:00 Outpatient R QUINN DAMON [facility] [id number] [facility] 2019-11-29 14:00:35 2019-11-29 14:15:35 Imm/Inj Visit Quinn Damon [facility] IALTY [facility] 1.114 350.1.13.10 4.2.7.2.686 [id number] [facility] 2019-11-29 08:32:54 2019-11-29 10:02:54 Nurse Visit 3, [facility] Adult Infusion Nurse Lloyd Loza [facility] 1.2840.114 350.1.13.10 4.2.7.2.686 [id number] [id number] [facility] 2019-11-29 00:00:00 2019-11-29 00:00:00 Orders Only Doctor Unassigned, [place] [facility] 1.20.114 350.1.13.10 4.2.7.2.686 [id number] [facility] 2019-11-29 00:00:00 2019-11-29 00:00:00 Refill Nazario Scott [facility] 1..114 350.1.13.10 4.2.7.2.686 [id number] 059 [id number] [facility] 2019-11-27 09:58:26 2019-11-27 10:08:26 Electrical Tech Visit Pcp-Lab Unknown, Attending Lloyd Loza [facility] PR[facility] CARE PAVILLION 1..114 350.1.13.10 4.2.7.2.686 [id number] [facility] 2019-11-27 09:00:00 2019-11-27 09:00:00 Outpatient LINDA PIERRE [facility] [id number] [facility] 2019-11-23 11:19:09 2019-11-26 12:00:23 Nurse Visit 3, [facility] Adult Infusion Nurse Lloyd Loza [facility] 1..114 350.1.13.10 4.2.7.2.686 [id number] 053 [id number] [facility] 2019-11-23 11:30:00 2019-11-23 11:30:00 Outpatient LLOYD FRAZIER [facility] [id number] [facility] 2019-11-22 10:59:41 2019-11-22 14:59:41 Nurse Visit 3, [facility] Adult Infusion Nurse Dago, Elolidia [facility] 1.114 350.1.13.10 4.2.7.2.686 [id number] [id number] [facility] 2019-11-22 11:30:00 2019-11-22 11:30:00 Outpatient R LLOYD LOZA [facility] [id number] [facility] 2019-11-22 00:00:00 2019-11-22 00:00:00 Orders Only Doctor Unassigned, [place] [facility] 1..114 350.1.13.10 4.2.7.2.686 [id number] [id number] [facility] 2019-11-21 00:00:00 2019-11-21 00:00:00 Elissa Henry [facility] 1.114 350.1.13.10 4.2.7.2.686 [id number] [facility] 2019-11-20 12:00:00 2019-11-20 12:00:00 Outpatient LINDA PIERRE [facility] [id number] [facility] 2019-11-20 11:00:00 2019-11-20 11:00:00 Outpatient ELISSA DALEY [facility] [id number] [facility] 2019-11-20 09:57:55 2019-11-20 10:22:24 Electrical Tech Visit Pcp-Lab Unknown, Attending [facility] 1..114 350.1.13.10 4.2.7.2.686 [id number] [facility] 2019-11-20 10:10:00 2019-11-20 10:10:00 Outpatient R UNKNOWN, ATTENDING [facility] [id number] [facility] 2019-11-20 00:00:2019-11-20 00:00:00 Case Management Lloyd Loza [facility] 1.2.840.114 350.1.13.10 4.2.7.2.686 [id number] [facility] 2019-11-19 00:00:00 2019-11-19 00:00:00 Telephone [facility] 1.2.840.114 350.1.13.10 4.2.7.2.686 [id number] 084 [id number] [facility] 2019-11-17 00:00:00 2019-11-17 00:00:00 Patient Secure Msg [facility] 1.2.840.114 350.1.13.10 4.2.7.2.686 [id number] 084 [id number] [facility] 2019-11-16 00:00:00 2019-11-16 00:00:00 Patient Secure Msg Doctor Unassigned, [place] [facility] 1.2.840.114 350.1.13.10 4.2.7.2.686 [id number] 080 [id number] [facility] 2019-11-16 00:00:00 2019-11-16 00:00:00 [facility] 1.2.840.114 350.1.13.10 4.2.7.2.686 [id number] 053 [id number] [facility] 2019-11-16 00:00:00 2019-11-16 00:00:00 Refill Doctor Unassigned, Old Eucha [facility] 1.2.840.114 350.1.13.10 4.2.7.2.686 [id number] 085 [id number] [facility] 2019-11-14 10:15:00 2019-11-14 10:15:00 Outpatient R LLOYD LOZA [facility] [id number] [facility] 2019-11-14 10:01:27 2019-11-14 10:12:09 Electrical Tech Visit [facility] Elo Lozalidia Eddy [facility] 1.2.840.114 350.1.13.10 4.2.7.2.686 [id number] [facility] 2019-11-13 00:00:00 2019-11-13 00:00:00 Refill Doctor Unassigned, [place] [facility] 1.2.840.114 350.1.13.10 4.2.7.2.686 [id number] [facility] 2019-11-12 00:00:00 2019-11-12 00:00:00 Patient Secure Msg Doctor Unassigned, [place] [facility] 1.2.840.114 350.1.13.10 4.2.7.2.686 [id number] 080 [id number] [facility] 2019-11-09 11:00:30 2019-11-09 12:14:38 Office Visit Lloyd Loza [facility]p [facility] 1.2.840.114 350.1.13.10 4.2.7.2.686 [id number] [facility] 2019-11-09 11:20:00 2019-11-09 11:20:00 Outpatient LLOYD FRAZIER [facility] [id number] [facility] 2019-11-08 00:00:00 2019-11-08 00:00:00 Refill Jesse Duncan [facility] 1.2.840.114 350.1.13.10 4.2.7.2.686 [id number] [facility] 2019-11-06 10:30:00 2019-11-06 10:30:00 Outpatient ELISSA DALEY [facility] [id number] [facility] 2019-11-02 00:00:00 2019-11-02 00:00:00 Orders Only Doctor Unassigned, [place] [facility] 1.2.840.114 350.1.13.10 4.2.7.2.686 [id number] [facility] 2019-11-01 14:45:00 2019-11-01 14:45:00 Outpatient R QUINN DAMON [facility] [id number] [facility] 2019-11-01 14:21:26 2019-11-01 14:36:26 Imm/Inj Visit Quinn Damon [facility] MULTISPEC IALTY [facility] 1.2840.114 350.1.13.10 4.2.7.2.686 [id number] [facility] 2019-11-01 00:00:00 2019-11-01 00:00:00 Orders Only Doctor Unassigned, [place] [facility] 1.2.840.114 350.1.13.10 4.2.7.2.686 [id number] [facility] 2019-10-25 10:54:13 2019-10-29 13:46:18 Office Visit Mia Salazar [facility] PR[facility] 1.2.840.114 350.1.13.10 4.2.7.2.686 [id number] [id number] [facility] 2019-10-29 00:00:00 2019-10-29 00:00:00 Patient Secure Jacob Elena [facility] 1.2.840.114 350.1.13.10 4.2.7.2.686 [id number] [facility] 2019-10-26 07:50:00 2019-10-26 23:59:00 Hospital Encounter Lloyd Loza Rp [facility] 1.2840.114 350.1.13.10 4.2.7.2.686 [id number] [facility] 2019-10-26 07:49:02 2019-10-26 07:49:00 [id number] 2019-10-26 07:49:00 2019-10-26 07:49:00 [facility].840.114 350.1.13.10 4.2.7.2.686 [id number] [facility] 2019-10-25 11:00:00 2019-10-25 11:00:00 Outpatient R MIA SALAZAR [facility] [id number] [facility] 2019-10-23 00:00:00 2019-10-23 00:00:00 Orders Only Doctor Unassigned, [place] [facility] 1.840.114 350.1.13.10 4.2.7.2.686 [id number] [facility] 2019-10-19 10:34:02 2019-10-19 10:49:02 Electrical Tech Visit [facility] 1.0.114 350.1.13.10 4.2.7.2.686 [id number] [facility] 2019-10-19 09:20:00 2019-10-19 09:20:00 [facility] [id number] [facility] 2019-10-19 00:00:00 2019-10-19 00:00:00 Orders Only Doctor Unassigned, [place] [facility] 1.0.114 350.1.13.10 4.2.7.2.686 [id number] [facility] 2019-10-18 14:49:16 2019-10-18 15:04:16 Telemedici ne Visit Jacob Mao [facility] 1.2840.114 350.1.13.10 4.2.7.2.686 [id number] [facility] 2019-10-18 15:00:00 2019-10-18 15:00:00 Outpatient R JACOB MAO [facility] [id number] [facility] 2019-10-16 11:33:32 2019-10-17 14:27:00 Hospital Encounter Jacob Mao [facility] 1.0.114 350.1.13.10 4.2.7.2.686 [id number] [facility] 2019-10-16 00:00:00 2019-10-16 00:00:00 Orders Only Doctor Unassigned, [place] [facility] 1..114 350.1.13.10 4.2.7.2.686 [id number] [facility] 2019-10-15 12:39:27 2019-10-15 12:54:27 Laboratory Only Only, Pcp Test Jacob Mao [facility] 1..114 350.1.13.10 4.2.7.2.686 [id number] [facility] 2019-10-15 12:45:00 2019-10-15 12:45:00 Outpatient R JACOB MAO [facility] [id number] [facility] 2019-10-12 00:00:00 2019-10-12 00:00:00 Patient Secure Msg Doctor Unassigned, [place] [facility] 1.114 350.1.13.10 4.2.7.2.686 [id number] [facility] 2019-10-11 15:01:54 2019-10-11 23:59:00 Outpatient R JACOB MAO [facility] [id number] [facility] 2019-10-11 15:01:00 2019-10-11 23:59:00 Hospital Encounter Jacob Mao [facility] 1..114 350.1.13.10 4.2.7.2.686 [id number] [facility] 2019-10-11 14:29:22 2019-10-11 15:01:41 Office Visit Jacob Mao [facility] 1.2.114 350.1.13.10 4.2.7.2.686 [id number] [facility] 2019-10-11 14:45:00 2019-10-11 14:45:00 Outpatient JACOB SAENZ [facility] [id number] [facility] 2019-10-11 13:00:00 2019-10-11 13:00:00 Outpatient ANASTASIA SANCEHZ [facility] [id number] [facility] 2019-10-09 00:00:00 2019-10-09 00:00:00 Case Management Nikki [facility] 1..114 350.1.13.10 4.2.7.2.686 [id number] [facility] 2019-10-04 13:37:24 2019-10-04 13:52:24 Imm/Inj Visit Quinn Damon [facility] MULTISPEC IALTY [facility] 1..114 350.1.13.10 4.2.7.2.686 [id number] [facility] 2019-10-04 10:45:00 2019-10-04 10:45:00 Outpatient R QUINN DAMON [facility] [id number] [facility] 2019-10-01 08:30:00 2019-10-01 08:30:00 Outpatient ANASTASIA SANCHEZ [facility] [id number] [facility] 2019-09-27 09:46:51 2019-09-27 12:00:10 Office Visit Quinn Damon [facility] MULTISPEC IALTY [facility] 1..114 350.1.13.10 4.2.7.2.686 [id number] [facility] 2019-09-27 09:45:00 2019-09-27 09:45:00 Outpatient R KOFI JANETDEWAYNE AGUILAREUGENIO [facility] [id number] [facility] 2019-09-21 13:03:56 2019-09-21 14:02:49 Office Visit Anastasia Nunez Rm, Adc Surg Spec Procedure [facility] 1.2.840.114 350.1.13.10 4.2.7.2.686 [id number] [facility] 2019-09-21 13:00:00 2019-09-21 13:00:00 Outpatient R ANASTASIA NUNEZ [facility] [id number] [facility] 2019-09-20 13:33:26 2019-09-20 23:59:00 Outpatient R OTIS PRACHI [facility] [id number] [facility] 2019-09-20 13:33:00 2019-09-20 23:59:00 Hospital Encounter OtisPrachi A [facility] 1..840.114 350.1.13.10 4.2.7.2.686 [id number] [facility] 2019-09-20 00:00:00 2019-09-20 00:00:00 Outpatient R OTIS PRACHI [facility] [id number] [facility] 2019-09-20 00:00:00 2019-09-20 00:00:00 Telephone Otis Prachi A [facility] 1..840.114 350.1.13.10 4.2.7.2.686 [id number] [facility] 2019-09-14 00:00:00 2019-09-14 00:00:00 Telephone Otis Prachi Roxy [facility] 1.2.840.114 350.1.13.10 4.2.7.2.686 [id number] [facility] 2019-09-12 12:42:39 2019-09-12 13:55:40 Office Visit Otis Prachi [facility] 1.2840.114 350.1.13.10 4.2.7.2.686 [id number] [facility] 2019-09-12 13:00:00 2019-09-12 13:00:00 Outpatient R PRACHI BERG [facility] [id number] [facility] 2019-09-07 13:12:31 2019-09-07 14:59:32 Urgent Care Tara Richards-Nam Unknown, Attending [facility] PR[facility] CARE PAVILLION 1.20.114 350.1.13.10 4.2.7.2.686 [id number] [facility] 2019-09-07 10:00:00 2019-09-07 10:00:00 Outpatient R VIVIANA CORDOVA [facility] [id number] [facility] 2019-09-07 07:36:42 2019-09-07 08:06:42 Telemedici ne Visit Amy jamison Viviana [facility] 1.20.114 350.1.13.10 4.2.7.2.686 [id number] [facility] 2019-09-07 00:00:00 2019-09-07 00:00:00 Telephone Kamlesh Egan [facility] nal Building 1.20.114 350.1.13.10 4.2.7.2.686 [id number] [facility] 2019-08-20 00:00:00 2019-08-20 00:00:00 Anatoly Díaz [facility] Medical Office Building 1.2840.114 350.1.13.10 4.2.7.2.686 [id number] [facility] 2019-08-20 00:00:00 2019-08-20 00:00:00 RefJesse Rios [facility] 1.114 350.1.13.10 4.2.7.2.686 [id number] [id number] [facility] 2019-08-16 08:18:16 2019-08-16 15:48:15 [facility] 1. 350.1.13.10 4.2.7.2.686 [id number] [facility] 2019-08-16 08:30:00 2019-08-16 08:30:00 Outpatient R QUINN DAMON [facility] [id number] [facility] 2019-08-03 11:00:00 2019-08-03 11:00:00 Outpatient R NIKHIL JUAREZ [facility] [id number] [facility] 2019-08-03 00:00:00 2019-08-03 00:00:00 Telephone Quinn Damon [facility] [employer] BLDG. 84.114 350.1.13.10 4.2.7.2.686 [id number] [facility] 2019-07-11 12:55:10 2019-07-11 14:02:50 Imm/Inj Visit Quinn Damon [facility] [employer] BLD[facility]. 84.114 350.1.13.10 4.2.7.2.686 [id number] [facility] 2019-07-11 13:00:00 2019-07-11 13:00:00 Outpatient R QUINN DAMON [facility] [id number] [facility] 2019-07-11 00:00:00 2019-07-11 00:00:00 Orders Only Doctor Unassigned, [place] [facility] 1.114 350.1.13.10 4.2.7.2.686 [id number] [facility] 2019-06-29 09:53:55 2019-06-29 23:59:00 Outpatient R NIKHIL JUAREZ [facility] [id number] [facility] 2019-06-29 09:53:00 2019-06-29 23:59:00 Hospital Encounter Nikhil Juarez [facility] PRIMARY CARE PAVILLION 1.2840.114 350.1.13.10 4.2.7.2.686 [id number] [facility] 2019-06-29 10:21:34 2019-06-29 10:31:34 Electrical Tech Visit Pcp-Lab Unknown, Attending [facility] PRIMARY CARE PAVILLION 1.20.114 350.1.13.10 4.2.7.2.686 [id number] [facility] 2019-06-29 09:53:55 2019-06-29 09:53:55 Outpatient R NIKHIL JUAREZ [facility] [id number] [facility] 2019-06-28 14:13:07 2019-06-28 16:58:11 Office Visit Anatoly Ramos [facility] 1.2840.114 350.1.13.10 4.2.7.2.686 [id number] [facility] 2019-06-28 14:30:00 2019-06-28 14:30:00 Outpatient R ANATOLY RAMOS [facility] [id number] [facility] 2019-06-22 10:41:08 2019-06-22 12:30:17 Office Visit Mia Salazar [facility] 1.2840.114 350.1.13.10 4.2.7.2.686 [id number] [facility] 2019-06-21 14:37:27 2019-06-22 07:24:54 Office Visit Raffi Brewer [facility] PR[facility] CARE PAVILLION 1.2.840.114 350.1.13.10 4.2.7.2.686 [id number] [facility] 2019-06-21 14:55:25 2019-06-21 23:59:00 Outpatient R RAFFI BREWER [facility] [id number] [facility] 2019-06-21 14:55:25 2019-06-21 23:59:00 Outpatient R [facility] [id number] [facility] 2019-06-21 14:55:00 2019-06-21 23:59:00 Hospital Encounter Osman [facility] PRIMARY CARE PAVLIDAON 1.840.114 350.1.13.10 4.2.7.2.686 [id number] [facility] 2019-06-21 00:00:00 2019-06-21 00:00:00 Abstract Carlton Mao [facility] PRIMARY CARE PAVILLION 1.284.114 350.1.13.10 4.2.7.2.686 [id number] [facility] 2019-06-13 13:00:00 2019-06-13 13:48:21 Outpatient R QUINN DAMON [facility] [id number] [facility] 2019-06-13 12:47:18 2019-06-13 13:48:21 Imm/Inj Visit Quinn Damon [facility] [employer] [facility] BLDG. 1.84.114 350.1.13.10 4.2.7.2.686 [id number] [facility] 2019-06-13 00:00:00 2019-06-13 00:00:00 Orders Only Doctor Unassigned, [place] [facility] 1.84.114 350.1.13.10 4.2.7.2.686 [id number] [facility] 2019-05-15 15:15:00 2019-05-15 14:21:44 Outpatient R QUINN DAMON [facility] [id number] [facility] 2019-05-15 13:49:29 2019-05-15 14:21:44 Imm/Inj Visit Quinn Damon [facility] BLDG. 1.84.114 350.1.13.10 4.2.7.2.686 [id number] [facility] 2019-05-15 12:58:50 2019-05-15 13:13:50 Office Visit Quinn Damon [facility] BLDG. 1.84.114 350.1.13.10 4.2.7.2.686 [id number] [facility] 2019-01-31 13:15:00 2019-01-31 13:47:58 Outpatient R QUINN DAMON [facility] [id number] [facility] 2019-01-03 15:00:00 2019-01-03 16:53:45 Outpatient R QUINN DAMON [facility] [id number] [facility] 2019-01-03 14:50:06 2019-01-03 16:53:45 Imm/Inj Visit Quinn Damon [facility] BLDG. 1.84.114 350.1.13.10 4.2.7.2.686 [id number] [facility] 2019-01-03 00:00:00 2019-01-03 00:00:00 Orders Only Doctor Unassigned, [place] [facility] 1.114 350.1.13.10 4.2.7.2.686 [id number] [facility] 2018-12-18 00:00:00 2018-12-18 00:00:00 Mia Mendosa [facility] PRIMARY CARE PAVILLION 1.84.114 350.1.13.10 4.2.7.2.686 [id number] [facility] 2018-12-06 16:34:56 2018-12-06 17:04:07 Imm/In[facility]i [facility] [id number] 350.1.13.10 4.2.7.2.686 [id number] [facility] 2018-12-06 14:59:12 2018-12-06 17:03:59 Office Visit Kofi Janet Quinn Yaw [facility] [id number] 350.1.13.10 4.2.7.2.686 [id number] [facility] 2018-12-06 00:00:00 2018-12-06 00:00:00 Orders Only Doctor Unassigned, [place] [facility] [id number] 350.1.13.10 4.2.7.2.686 [id number] [facility] 2018-11-03 08:15:00 2018-11-03 08:55:43 Outpatient R ALESSANDRO ESPINOZA [facility] [id number] [facility] 2018-10-31 14:15:00 2018-10-31 14:15:00 Outpatient QUINN BHATTI [facility] [id number] [facility] 2018-10-04 14:00:00 2018-10-04 14:37:16 Outpatient QUINN BHATTI [facility] [id number] [facility] 2018-09-06 14:00:00 2018-09-06 15:20:47 Outpatient QUINN BHATTI [facility] [id number] [facility] 2018-08-09 14:00:00 2018-08-09 14:55:25 Outpatient QUINN BHATTI [facility] [id number] [facility] 2018-05-10 14:00:00 2018-05-10 14:34:48 Outpatient QUINN BHATTI [facility] [id number] [facility] 2018-04-12 14:15:00 2018-04-12 15:07:50 Outpatient Yo JARAMILLO JANETQUINN AGUILAR [facility] [id number] [facility] 2018-03-15 14:30:00 2018-03-15 15:14:31 Outpatient Yo KOFI JANETQUINN AGUILAR [facility] [id number] [facility] 2018-01-11 15:00:00 2018-01-11 15:37:01 Outpatient Yo KOFI JANETQUINN AGUILAR [facility] [id number] [facility] 2017-12-14 15:15:00 2017-12-14 15:49:23 Outpatient Yo GONZALESQUINN [facility] [id number] [facility] 2017-11-16 10:30:00 2017-11-16 12:14:27 Outpatient Yo GONZALES QUINN [facility] [id number] [facility] 2017-08-31 13:45:00 2017-08-31 14:20:32 Outpatient Yo GONZALESQUINN [facility] [id number] [facility] 2017-08-03 14:00:00 2017-08-03 15:09:46 Outpatient Yo KOFI JANETQUINN AGUILAR [facility] [id number] [facility] 2017-06-22 15:00:00 2017-06-22 15:36:46 Outpatient Yo KOFI JANETQUINN [facility] [id number] [facility] Results Test Description Test Time Test Comments Results Result Comments Source CT ABDOMEN PELVIS WO CONTRAST 2023-08 22:07:0 0 EXAM: CT ABDOMEN PELVIS WO CONTRAST HISTORY: 83 years-old Female; Provided indication: Flank pain, kidney stonesuspected hematuria . History independently obtained from [facility]: "urinary retention since thismorning ". History of [...] seen. Thesoft tissues have no acute findings. [facility] XR CHEST 1 VW 2023-06 19:22:0 2 ORDERING PHYSICIAN: CAT SIMPSON CLINICAL HISTORY: soa TECHNIQUE: Single view of the chest TECHNICAL QUALITY: Diagnostic COMPARISON: 11/01/2022 FINDINGS: The lungs are clear. There is no pneumothorax or pleuraleffusion. The cardiac silhouette is stable in size. The aorta is atherosclerotic .The pulmonary vasculature is not increased. There are no acute osseous abnormalities. [facility] LKJY2216-94-32 11:36:46* Test Item Value Reference Range Interpretation Comme nts WBC (test code = 6690-2) 5.67 See_Comment [Automated [employer]] The system which generated this result transmitted reference range: 4.30 - 11.10 10*3/?L. The reference range was not used to interpret this result as normal/abnormal. RBC (test code = 789-8) 4.06 See_Comment [Automated messa ge] The system which [...] 32.4 g/dL 31.6-35.1 RDW-SD (test code = 71805-8) 55.0 fL 39.0-49.9 H RDW-CV (test code = 788-0) 15.9 % 12.0-15.5 H PLT (test code = 777-3) 174 See_Comment [Automated [employer]] The system which generated this result transmitted reference range: 166 - 358 10*3/?L. The reference range was not used to interpret this result as normal/abnormal. MPV (test code = 03738-8) 10.2 fL 9.5-12.9 NRBC/100 WBC (test code = 7781098439) 0.0 See_Comment [Automated BCKSTGR ssage] The system which generated this result transmitted reference range: 0.0 - 10.0 /100 WBCs. The reference range was not used to interpret this result as normal/abnormal. NRBC x10^3 (test code = 5837802068) See_Comment [Automated [employer]] The system which generated this result transmitted reference range: 10*3/?L. The reference range was not used to interpret this result as normal/abnormal. GRAN MAT (NEUT) % (test code = 770-8) 69.5 % IMM GRAN % (test code = 5064723718) 0.40 % LYMPH % (test code = 736-9) 8.1 % MONO % (test code = 5905-5) 11.6 % EOS % (test code = 713-8) 9.7 % BASO % (test code = 706-2) 0.7 % GRAN MAT x10^3(ANC) (test code = 7193856292) 3.94 10*3/uL 1.88-7.09 IMM GRAN x10^3 (test code = 2284648724) 0.00-0.06 LYMPH x10^3 (test code = 731-0) 0.46 10*3/uL 1.32-3.29 L MONO x10^3 (test code = 742-7) 0.66 10*3/uL 0.33-0.92 EOS x10^3 (test code = 711-2) 0.55 10*3/uL 0.03-0.39 H BASO x10^3 (test code = 704-7) 0.04 10*3/uL 0.01-0.07 Lab Interpretation (test code = 38525-0) Abnormal [facility] METABOLIC PANEL (NA, K, CL, CO2, GLUCOSE, BUN, CREATININE, CA)2022-11-15 10:47:02* Test Item Value Reference Range Interpretation Comme nts NA (test code = 2073528205) 132 mmol/L 135-145 L K (test code = 4758026965) 3.9 mmol/L 3.5-5.0 CL (test code = 8882081181) 94 mmol/L 98-108 L CO2 TOTAL (test code = 5291464494) 34 mmol/L 23-31 H AGAP (test code = 8072668600) 4 2-16 BUN (test code = 7965946660) 16 mg/dL 7-23 GLUCOSE (test code = 1685080242) 100 mg/dL 70-110 CREATININE (test code = 2550791774) 0.75 mg/dL 0.50-1.04 CALCIUM (test code = 3752775625) 9.5 mg/dL 8.6-10.6 eGFR (test code = 1392040022) 74.4 mL/min/1.73m2 JENNIFER (test code = JENNIFER) [...] imaging tests). Lab Interpretation (test code = 90047-7) [facility] 21:02:43* Test Item Value Reference Range Interpretation Comme nts TROPONIN I (test code = 9106725049) 0.007 ng/mL <=0.034 JENNIFER (test code = [...] of biotin. Lab Interpretation (test code = 57624-4) [facility]TNU7262-40-03 21:00:20* Test Item Value Reference Range Interpretation Comme nts NT-proBNP (test code = 1799512951) 368 pg/mL <=450 JENNIFER (test code = JENNIFER) Biotin has been reported to cause a negative bias, interpret results relative to patient's use of biotin. Lab Interpretation (test code = 60843-2) Normal [facility]. METABOLIC PANEL (04832)2022-11-01 20:51:36* Test Item Value Reference Range Interpretation Comme nts NA (test code = 8190293402) 135 mmol/L 135-145 K (test code = 1712158795) 4.5 mmol/L 3.5-5.0 CL (test code = 9543446611) 100 mmol/L 98-108 CO2 TOTAL (test code = 9045879609) 23 mmol/L 23-31 AGAP (test code = 1259218062) 12 2-16 BUN (test code = 9217671893) 26 mg/dL 7-23 H GLUCOSE (test code = 4515685209) 125 mg/dL 70-110 H CREATININE (test code = 9838685092) 0.82 mg/dL 0.50-1.04 TOTAL BILI (test code = 1133699535) 0.7 mg/dL 0.1-1.1 CALCIUM (test code = 6972565233) 9.7 mg/dL 8.6-10.6 T PROTEIN (test code = 8300205326) 8.0 g/dL 6.3-8.2 ALBUMIN (test code = 2511751872) 4.3 g/dL 3.5-5.0 ALK PHOS (test code = 0534375597) 102 U/L 34-122 ALTv (test code = 1742-6) 19 U/L 5-35 AST(SGOT) (test code = 2070645595) 25 U/L 13-40 eGFR (test code = 5312624755) 67.1 mL/min/1.73m2 JENNIFER (test code = JENNIFER) [...] imaging tests). Lab Interpretation (test code = 37552-9) [facility]* Test Item Value Reference Range Interpretation Comme nts LIPASE (test code = 5923237375) 104 U/L 0-220 Lab Interpretation (test cod e = 62710-2) Normal [facility] WITH IPDR3807-55-11 20:49:37* Test Item Value Reference Range Interpretation Comme nts WBC (test code = 6690-2) 6.28 See_Comment [Automated [employer]] The system which generated this result transmitted reference range: 4.30 - 11.10 10*3/?L. The reference range was not used to interpret this result as normal/abnormal. RBC (test code = 789-8) 5.02 See_Comment [Automated [employer]] The system which generated this result transmitted [...] 32.3 g/dL 31.6-35.1 RDW-SD (test code = 06281-2) 52.8 fL 39.0-49.9 H RDW-CV (test code = 788-0) 15.8 % 12.0-15.5 H PLT (test code = 777-3) 222 See_Comment [Automated messa ge] The system which generated this result transmitted reference range: 166 - 358 10*3/?L. The reference range was not used to interpret this result as normal/abnormal. MPV (test code = 26048-3) 9.3 fL 9.5-12.9 L NRBC/100 WBC (test code = 6312682481) 0.0 See_Comment [Automated BCKSTGR ssage] The system which generated this result transmitted reference range: 0.0 - 10.0 /100 WBCs. The reference range was not used to interpret this result as normal/abnormal. NRBC x10^3 (test code = 9914558211) See_Comment [Automated [employer]] The system which generated this result transmitted reference range: 10*3/?L. The reference range was not used to interpret this result as normal/abnormal. GRAN MAT (NEUT) % (test code = 770-8) 68.3 % IMM GRAN % (test code = 7429037059) 0.50 % LYMPH % (test code = 736-9) 9.9 % MONO % (test code = 5905-5) 11.1 % EOS % (test code = 713-8) 9.7 % BASO % (test code = 706-2) 0.5 % GRAN MAT x10^3(ANC) (test code = 7023445711) 4.29 10*3/uL 1.88-7.09 IMM GRAN x10^3 (test code = 2224107444) 0.03 10*3/uL 0.00-0.06 LYMPH x10^3 (test code = 731-0) 0.62 10*3/uL 1.32-3.29 L MONO x10^3 (test code = 742-7) 0.70 10*3/uL 0.33-0.92 EOS x10^3 (test code = 711-2) 0.61 10*3/uL 0.03-0.39 H BASO x10^3 (test code = 704-7) 0.03 10*3/uL 0.01-0.07 Lab Interpretation (test code = 27664-3) Abnormal [facility] Metabolic Panel (NA, K, CL, CO2, GLUCOSE, BUN, CREATININE, CA)2022-06-10 11:53:52* Test Item Value Reference Range Interpretation Comme nts NA (test code = 4189793007) 132 mmol/L 135-145 L K (test code = 2395217748) 4.4 mmol/L 3.5-5.0 CL (test code = 5062569236) 98 mmol/L 98-108 CO2 TOTAL (test code = 2728435313) 28 mmol/L 23-31 AGAP (test code = 2929549432) 6 2-16 BUN (test code = 9660592730) 16 mg/dL 7-23 GLUCOSE (test code = 9236449244) 114 mg/dL 70-110 H CREATININE (test code = 5788855681) 0.81 mg/dL 0.50-1.04 CALCIUM (test code = 8841366382) 9.2 mg/dL 8.6-10.6 eGFR (test code = 3558257982) 68.0 mL/min/1.73m2 JENNIFER (test code = JENNIFER) [...] imaging tests). Lab Interpretation (test code = 63547-9) Abnormal [facility] with Wrjijwuehema4797-56-30 10:50:43* Test Item Value Reference Range Interpretation Comme nts WBC (test code = 6690-2) 4.15 See_Comment L [Automated [employer]] The system which generated this result transmitted reference range: 4.30 - 11.10 10*3/?L. The reference range was not used to interpret this result as normal/abnormal. RBC (test code = 789-8) 3.66 See_Comment L [Automated [employer]] The system which generated this result transmitted [...] 32.2 g/dL 31.6-35.1 RDW-SD (test code = 17007-0) 55.4 fL 39.0-49.9 H RDW-CV (test code = 788-0) 15.5 % 12.0-15.5 PLT (test code = 777-3) 208 See_Comment [Automated [employer]] The system which generated this result transmitted reference range: 166 - 358 10*3/?L. The reference range was not used to interpret this result as normal/abnormal. MPV (test code = 67635-1) 10.6 fL 9.5-12.9 NRBC/100 WBC (test code = 2917895594) 0.0 See_Comment [Automated me ssage] The system which generated this result transmitted reference range: 0.0 - 10.0 /100 WBCs. The reference range was not used to interpret this result as normal/abnormal. NRBC x10^3 (test code = 2126644046) See_Comment [Automated messa ge] The system which generated this result transmitted reference range: 10*3/?L. The reference range was not used to interpret this result as normal/abnormal. GRAN MAT (NEUT) % (test code = 770-8) 73.0 % IMM GRAN % (test code = 2433251214) 0.50 % LYMPH % (test code = 736-9) 15.7 % MONO % (test code = 5905-5) 10.4 % EOS % (test code = 713-8) 0.2 % BASO % (test code = 706-2) 0.2 % GRAN MAT x10^3(ANC) (test code = 0400256208) 3.03 10*3/uL 1.88-7.09 IMM GRAN x10^3 (test code = 0190519147) 0.00-0.06 LYMPH x10^3 (test code = 731-0) 0.65 10*3/uL 1.32-3.29 L MONO x10^3 (test code = 742-7) 0.43 10*3/uL 0.33-0.92 EOS x10^3 (test code = 711-2) 0.03-0.39 L BASO x10^3 (test code = 704-7) 0.01-0.07 Lab Interpretation (test code = 11599-7) Abnormal [facility] WITH OTNN3178-47-91 00:47:45* Test Item Value Reference Range Interpretation [...] 32.5 g/dL 31.6-35.1 RDW-SD (test code = 76139-7) 54.7 fL 39.0-49.9 H RDW-CV (test code = 788-0) 15.4 % 12.0-15.5 PLT (test code = 777-3) 233 See_Comment [Automated messa ge] The system which generated this result transmitted reference range: 166 - 358 10*3/?L. The reference range was not used to interpret this result as normal/abnormal. MPV (test code = 42525-6) 9.2 fL 9.5-12.9 L NRBC/100 WBC (test code = 6988623441) 0.0 See_Comment [Automated BCKSTGR ssage] The system which generated this result transmitted reference range: 0.0 - 10.0 /100 WBCs. The reference range was not used to interpret this result as normal/abnormal. NRBC x10^3 (test code = 3423252900) See_Comment [Automated messa ge] The system which generated this result transmitted reference range: 10*3/?L. The reference range was not used to interpret this result as normal/abnormal. GRAN MAT (NEUT) % (test code = 770-8) 70.0 % IMM GRAN % (test code = 7796777153) 0.40 % LYMPH % (test code = 736-9) 10.0 % MONO % (test code = 5905-5) 14.8 % EOS % (test code = 713-8) 4.5 % BASO % (test code = 706-2) 0.3 % GRAN MAT x10^3(ANC) (test code = 0033659524) 4.96 10*3/uL 1.88-7.09 IMM GRAN x10^3 (test code = 2001050187) 0.03 10*3/uL 0.00-0.06 LYMPH x10^3 (test code = 731-0) 0.71 10*3/uL 1.32-3.29 L MONO x10^3 (test code = 742-7) 1.05 10*3/uL 0.33-0.92 H EOS x10^3 (test code = 711-2) 0.32 10*3/uL 0.03-0.39 BASO x10^3 (test code = 704-7) 0.01-0.07 Lab Interpretation (test code = 36245-1) [facility] 23:13:38* Test Item Value Reference Range Interpretation Comme nts Height (test code = 9295613547) in Weight (test code = 7295738335) lbs Systolic BP (test code = 8035364512) mmHg Diastolic BP (test code = 5285541672) mmHg Heart Rate (test code = 0623415919) bpm LVOT stroke volume (test code = 5613932558) 77.60 cm3 EF(Teich) (test code = 5676710661) 72.20 % LVIDD (test code = 6255602074) 4.50 cm LVIDS (test code = 6809333799) 2.70 cm Left Ventricular End Systolic Volume by Teichholz Method (test code = 4910048) 26.1 mL Left Ventricular End Diastolic Volume by Teichholz Method (test code = 7106824) 93.7 mL IVS (test code = 4851897863) 0.85 cm LVPWD (test code = 8788553098) 0.71 cm LVOT diameter (test code = 1811751583) 1.99 cm LVOT area (test code = 6162500795) 3.10 cm2 FS (test code = 7433881084) 41 % MV Peak E Chris (test code = 5793918231) 72.4 cm/s MV Peak A Chris (test code = 2754825592) 109.7 cm/s E/A ratio (test code = 6536844749) ratio E wave decelartion time (test code = 3038726971) 0.23 s MV E/e' septal (test code = 5952126164) 4.6 cm/s LA Volume Index (BP) (test code = 8832943977) 40.0 mL/m2 LA volume (BP) (test code = 3437893919) 71.8 mL LVOT peak chris (test code = 0699237161) 111.0 cm/s LVOT mn grad (test code = 8911968781) mmHg BSA (test code = 5999535659) 1.79 m2 LA size (test code = 1119987220) 3.0 cm LAV(MOD-sp2) (test code = 4674659727) 74.20 mL LAV(MOD-sp4) (test code = 3150086938) 49.50 mL Tapse (test code = 7531050324) 1.95 cm AV LVOT peak gradient (test code = 7206710614) mmHg LVOT peak VTI (test code = 6283481926) 25.0 cm LV V1 mean (test code = 1272277537) 69.10 cm/s MV Prop V (test code = 8375963676) 25.60 cm/s TR Peak Chris (test code = 7248318438) 248.4 cm/s Triscuspid Valve Regurgitation Peak Gradient (test code = 8480334485) mmHg Ao root diam (test code = 7667962399) 3.20 cm Aortic root (test code = 7776214427) 3.2 cm Ao root annulus (test code = 3516138849) 3.2 cm PW (test code = 1648131386) 0.71 cm 0.6-1.1 EF - 2D (test code = 62038387) 72.20 % Interventricular Septum Diastolic Thickness by 2D (test code = 3805703) 0.85 cm Radiology Study observation (narrative) (test code = 21570-2) JENNIFER (test code = JENNIFER) ?Left?Ventricle: Left [...] 2D, color flow Doppler and spectral Doppler. [facility] Notes Date/Time Note Provider Source 2023-10-24 18:10:26 3429-21-14X31:10:26 Okay to provide home health orders. Okay to place certified social workers in health care referral if necessary. 22942-7Uivwptdsg encounter YavmBX9410-92-49L95:10:40Telephone encounter NoteTXT1.2.840.735420.1.13.104.2.7.2. 739547|[id number] for patient wuns44620-5JppsUSCLDKXAIRDQifjwebzn C-CDA narrative hint[id number] SOUWNWJIXMMJUVYFMPOLH0559-59-29N29:10 :401.2.840.778104.1.72.3.15|1.2.840.1 50916.1.13.104.2.7.2.727879_[id number] 8 [facility] 2023-10-24 12:56:40 1151-65-26K89:56:40 ALEXEY 10/06/2023- TELEHEALTH melvin - patient and partner have previously been advised on F2F visit required for HH orders.Routed to provider and for review. 39727-7Cuikhhenv encounter QtndUU1143-62-79O60:58:57Telephone encounter NoteTXT1.2.840.264899.1.13.104.2.7.2. 026089|[id number] for patient vlpw75481-2AtusXETQHXWMLJLUsnlsahbq C-CDA narrative hint[id number] XNPHIMIQMOHDDEYLFRXIS3822-92-40O13:58 :571.2.840.539671.1.72.3.15|1.2.840.1 16535.1.13.104.2.7.2.727879_[id number] 2 [facility] 2023-10-24 10:34:38 4910-43-85B38:34:38 Franck Crow is a 83 year old femalePt's partner is calling to request home health orders from Dr. Blakely due to pt now being bed ridden and completely disabled. Please contact Fernandez at [phone] (home) 08794-1Xyxtxstxn encounter YbumCM3859-15-02B14:36:17Telephone encounter NoteTXT1.2.840.624945.1.13.104.2.7.2. 470548|[id number] for patient onza23298-8KsstAJVZAADAZDHLvvebalhg C-CDA narrative [id number] R Arnes[id number] UDPKYJYSUESLRDVCIDFBP5872-20-00Y63:36 :171.2.840.440940.1.72.3.15|1.2.840.1 91344.1.13.104.2.7.2.727879_[id number] 9 Virgilio Canas [facility] 2023-10-18 00:19:47 1915-30-11F13:19:47 Okay to send levofloxacin 500mg once daily x 5 days as an alternative to cephalexin, but I do strongly recommend ER evaluation due to worsening UTI symptoms. If patient is unable to go to the ER, then have patient's partner bring a sample of the patient's urine to the lab for urinalysis and urine culture. Okay to place orders. 80985-2Hqjmpkkny encounter CwamDS3110-17-11Z95:22:28Telephone encounter NoteTXT1.2.840.379700.1.13.104.2.7.2. 280805|[id number] for patient fego35077-9OlduWDBTQAYRTZQClsxamnsz C-CDA narrative text[id number] TGFXKPVYHKMJRISIRWVHR5249-63-50N36:22 :281.2.840.506248.1.72.3.15|1.2.840.1 90736.1.13.104.2.7.2.727879_[id number] 4 [facility] 2023-10-17 10:48:55 2081-64-90A18:48:55 Per pt cephalexin 500 is not working.Pt C/O current dysuria, flank pain, frequent urination, nausea, vomiting, hematuria.Pt is bed bound and unable to come inInformed pt an appt my be needed for further evaluation.Please advise 33128-8Kgfthtuwk encounter GatvNP7718-65-16T41:51:38Telephone encounter NoteTXT1.2.840.270302.1.13.104.2.7.2. 894940|[id number] for patient fnfo26592-0TdtzGXYJZGMHVXJVfkyjqxtd C-CDA narrative [id number] M Miller [address] Cmek[id number] JKTFIJCCTTADMNNGGWMJI1749-32-23U99:51 :381.2.840.601705.1.72.3.15|1.2.840.1 72096.1.13.104.2.7.2.727879_[id number] 0 Kayla Benitez [facility] 2023-10-17 10:37:40 0098-79-21W36:37:40 Franck Crow is a 83 year old femaleHarry significant other to patient is calling in behalf of patient states the patient is currently taking the following medicationcephALEXin 500 mg capsuleBut states the patient hasn't gotten any relief the medicationHarry would like to see if provider can call in another RX that is equevelant or that my work betterPatient continues to have painful urinationPlease [phone] (home)[facility] [id number] [place] [address] Lqkauizrccfosp signed by Paz, Mary A at 10/17/2023 10:42 AM KKA81996-1Ehwpexhic encounter XwvvXG2654-27-45W19:42:14Telephone encounter NoteTXT1.2.840.951263.1.13.104.2.7.2. 950452|[id number] for patient gcpi92287-4XxwrPBITKQOKWYMIpkopwbpn C-CDA narrative kdaz559910021Fedm A Odilon[id number] WFIURSVJCCHLPYAQLLONJ9759-52-91F86:42 :141.2.840.562952.1.72.3.15|1.2.840.1 72816.1.13.104.2.7.2.727879_[id number] 1 Sheeba Ramsey Jackson [facility] 2023-10-13 13:23:49 5967-81-02W45:23:49 Prescription sent. Attempted to speak to patient to inform with no success, left voicemail. 35992-2Iobrutbhw encounter MxmpVG1027-74-76T17:25:32Telephone encounter NoteTXT1.2.840.866315.1.13.104.2.7.2. 802216|[id number] for patient bwaf84507-5BalmUGLVRSAMNDAOqyovneng C-CDA narrative hbun322245800Exymk L Garza [id number] AIYYYUUWADCDUKKTRUPYL5571-23-16S41:25 :321.2.840.829882.1.72.3.15|1.2.840.1 50765.1.13.104.2.7.2.727879_[id number] 2 Kathi Oshea RN [facility] 2023-10-13 13:14:30 4622-70-32R12:14:30 Okay to send cephalexin 500mg TID x 7 days 28419-2Coqxjlwza encounter XuzcIJ1318-13-77A18:15:16Telephone encounter NoteTXT1.2.840.527384.1.13.104.2.7.2. 707625|7550609138BMRpqmenyui for patient kiof20127-8HclcNRWJAWLPNRSCzllmwaca C-CDA narrative text[address] IdahViabtpwqlPsaphlrxuHHBF8180247369B EPMRCFPAHBWIDQOTSHXZZ8202-91-91K86:15 :161.2.840.098933.1.72.3.15|1.2.840.1 94060.1.13.104.2.7.2.727879_[id number] 2 [facility] 2023-10-12 10:15:57 2506-81-26C72:15:57 Called and spoke with patient - patient [...] and chills, painRouted to provider, please advise 90781-7Gwrxwbezl encounter HiwwBJ1345-43-11B00:36:45Telephone encounter NoteTXT1.2.840.901642.1.13.104.2.7.2. 403679|1268791904VQTjdytblpy for patient nfod09272-7BeyzEGDXKKEHDMYDfqvhkjeh C-CDA narrative jose[id number] HCOZCGXNFGCFAYAKESUJZ8591-49-79D94:36 :451.2.840.566773.1.72.3.15|1.2.840.1 73114.1.13.104.2.7.2.727879_[id number] 9 [facility] 2023-10-12 10:01:43 2126-43-71H26:01:43 Franck Crow is a 83 year old femaleHarry is calling to state patient has UTI and would like medication. Patient is bed bound and unable to come to office. Please call. 38449-6Qqzhbxfav encounter BuwsEH7775-18-72W67:02:49Telephone encounter NoteTXT1.2.840.024042.1.13.104.2.7.2. 965554|[id number] for patient nwwf98086-5KmvgQKUNTSHIFOKZffustsox C-CDA narrative [id number] Perez[id number] NOYJHEIXDJKQAECFPXUBK7420-55-92M62:02 :491.2.840.093234.1.72.3.15|1.2.840.1 73101.1.13.104.2.7.2.727879_[id number] Loulou Ngo [facility] 2023-10-03 14:08:54 7908-52-31Y71:08:54 Appt changed to telehealth and patient notified 48329-5Mbwjrrlkd encounter LzykGZ2048-73-63K36:09:07Telephone encounter NoteTXT1.2.840.482474.1.13.104.2.7.2. 612056|[id number] for patient qtek80408-9YqjwVAICUDNWKTXEynchstzn C-CDA narrative vsqj915035205Hcd [address] CqwrNbkprjfrrEodpjlduhXGNP7674366106T VEZUSDQGKAKLFUYEHWCDX7256-51-38B54:09 :071.2.840.570212.1.72.3.15|1.2.840.1 68485.1.13.104.2.7.2.727879_[id number] 2 Jenna Cote [facility] 2023-10-03 10:53:45 4581-30-65R66:53:45 Called and spoke with patient - requesting [...] to provider, please advisePrescription pending for review. 01517-8Uhjtssfmy encounter AsjeQX6545-46-53M33:19:47Telephone encounter NoteTXT1.2.840.723185.1.13.104.2.7.2. 613180|0986962759UFSnlbpoezh for patient wcaq18634-6AiojRMTZZDUWJBCZselqvocg C-CDA narrative text[address] Io[id number] BCFDDPELMCTETZOSOGJQS6371-03-46C53:19 :471.2.840.231965.1.72.3.15|1.2.840.1 52913.1.13.104.2.7.2.727879_[id number] 4 [facility] 2023-10-03 09:02:46 1062-31-16I94:02:46 Franck Crow is a 83 year old [...] if she can continue taking two tablets. 47109-1Hpssovvul encounter LfnmOC3052-19-47M98:07:33Telephone encounter NoteTXT1.2.840.976712.1.13.104.2.7.2. 711678|3913193790BVReuhnzdsi for patient imxf29751-1EfspJQQDIEQNDXJAifvkzbex C-CDA narrative [id number] [address] Kd[id number] GLAGRRBKRURCQHMFTKEDI3280-03-70G08:07 :331.2.840.852245.1.72.3.15|1.2.840.1 50845.1.13.104.2.7.2.727879_[id number] 6 Jessica Nur [facility] 2023-09-30 15:10:47 3500-60-22W18:10:47 Agree with triage note, need clinic assessment/Defer to PCPRecommend ER precaution for worsening symptoms. 12383-5Pwzpqcjfk encounter HmzzOG5875-50-37M52:11:53Telephone encounter NoteTXT1.2.840.725844.1.13.104.2.7.2. 820716|5084090444XWXznxclzci for patient ndlw28372-8GltpQXSIIRUVEJKZraxlqxaq C-CDA narrative text-FAMILY MEDICINE STAFF-FAMILY MEDICINE STAFF[address] Sd[id number] IIJXSTXDOJYIQRSUWCZOR5284-81-77D54:11 :531.2.840.883744.1.72.3.15|1.2.840.1 06249.1.13.104.2.7.2.727879_[id number] 1 -FAMILY MEDICINE STAFF [facility] 2023-09-29 10:30:49 0556-00-72F46:30:49 BUSPIRONE 10 mg tablet 90 tablet 0 [...] the office and is aware previous Provider's c application developer have advised for patient to follow up [...] requesting assistance and recommendations today if possible. 55621-7Wtxgwabpm encounter IsxrNV9073-87-56L41:20:35Telephone encounter NoteTXT1.2.840.172232.1.13.104.2.7.2. 893292|6441564797ZSQduicfzth for patient ofim32527-7QnmqQYLPVFDQYWOUpdquixkx C-CDA narrative mzrl202660013Vytuk L Garza RNUT[address] Pr[id number] STWFZBCASQRVQMALKSXML6478-03-79J39:20 :351.2.840.421084.1.72.3.15|1.2.840.1 81459.1.13.104.2.7.2.727879_[id number] 3 Kathi Oshea RN [facility] 2023-09-29 09:49:53 1456-81-57T94:49:53 Copied from [facility] #[id number]. Topic: Clinical - Medical Advice>> September 29, 2023 9:48 AM Patient [employer] Commerce Consultant wrote:Franck Crow is a 83 year old femalePts life partner is asking for someone to call him regarding increasing the pts dosage on her BUSPIRONE . Partner needs guidance on this matter. He states theres no way the pt can come in to the office. Please advise. [phone] (home) 84396-1Ztcubrrla encounter YhkfMD4070-77-15G55:54:33Telephone encounter NoteTXT1.2.840.094014.1.13.104.2.7.2. 927245|[id number] for patient kafd50458-0QalkBGFELCVRUNZAkiryodmh C-CDA narrative [id number] Ellkerrie21 Escobar [id number] JIYFEUWKFVQZDYJJGFPDC1715-58-82E52:54 :331.2.840.384141.1.72.3.15|1.2.840.1 18748.1.13.104.2.7.2.727879_[id number] 2 Yasmeen Ray [facility] 2023-09-27 18:45:01 2131-44-54W50:45:01 Agree that pcp should see patient and discuss change in bu spar if appropriate or not . 37517-9Exkvuylkt encounter PxtuHP2041-52-07E13:45:26Telephone encounter NoteTXT1.2.840.151441.1.13.104.2.7.2. 638628|[id number] for patient kyzu11568-5MkhyAGNTPXMLRWRBxdawqshe C-CDA narrative text-INTERNAL MEDICINE STAFF-INTERNAL MEDICINE [id number] OAFZFZOLRMWQCQPQKYKEJ9630-00-78V12:45 :261.2.840.660231.1.72.3.15|1.2.840.1 11182.1.13.104.2.7.2.727879_[id number] 2 -INTERNAL MEDICINE [facility] 2023-09-27 18:09:16 1215-11-47Z48:09:16 Will defer to PCP, I advise taking medication as prescribed by prescriber Ector Mac [facility] 54288-6Kmlrcxkez encounter NdqjCA8872-71-76K28:09:42Telephone encounter NoteTXT1.2.840.834807.1.13.104.2.7.2. 015028|[id number] for patient deye37597-6OiikKZLPWGODWGGUmnnkjkil C-CDA narrative textFM-FAMILY MEDICINE STAFFFM-FAMILY MEDICINE STAFF[id number] FPPYZURSJEYDXATPCAMUD2105-01-53R38:09 :421.2.840.868109.1.72.3.15|1.2.840.1 41627.1.13.104.2.7.2.727879_[id number] 0 -FAMILY MEDICINE STAFF [facility] 2023-09-27 10:16:39 3039-84-14E68:16:39 Copied from [facility] #[id number]. Topic: Clinical - Medical Advice>> September 27, 2023 10:12 AM Patient [employer] Consultant wrote:Pt life partner calling to speak with dr about upping the dosage of the BUSPIRONE. Pt has been taking two pills three times a day and they want to know if this is ok and if they can have the prescription changed to reflect this 68449-5Gutfwbfpr encounter QukpUW0054-95-10E82:16:39Telephone encounter NoteTXT1.2.840.217936.1.13.104.2.7.2. 614188|[id number] for patient wmht14921-1RvveJUAGCKHDVXSHrxjtyfmu C-CDA narrative xxpz677576676Vsfay C BriggsUT45 Marquez StreetNqrrAjzqnejvpPynlopwtpQRTJ2776022805O EYHTJOFPVPANIZVHFUJBD6398-40-47J76:16 :391.2.840.175818.1.72.3.15|1.2.840.1 63905.1.13.104.2.7.2.727879_[id number] 2 Arlin Coronado [facility] 2023-09-15 16:31:06 4901-97-82X26:31:06 RT called pt to confirm appt. for tomorrow, pt reports sick in bed, cancel tomorrow. She declined a reschedule, she states she has cancer all throughout her body and does not believe she can participate in our program. She states she has our number, asked pt to call us of she is able in the future. 07764-5Qqagxhoyw encounter UwibUG5822-19-43L19:34:06Telephone encounter NoteTXT1.2.840.412008.1.13.104.2.7.2. 132201|[id number] for patient rcjp68028-9GagdBMGNPUEDNWIMbdrodfrx C-CDA narrative kuly583887819Jhphk Ladarius [address]TXTX[address]5577555U BGLSAKCPXTJFLKMCBEXRG6095-57-65A17:34 :061.2.840.336646.1.72.3.15|1.2.840.1 53754.1.13.104.2.7.2.727879_[id number] 1 Graciela Durand RT [facility] 2023-09-09 10:01:24 8958-36-46K80:01:24 Patient returned call to the clinic, informed [...] patient I would update Dr. Loza's team. 84396-8Tjjvxofjv encounter RxeeYQ6328-48-60M20:10:20Telephone encounter NoteTXT1.2.840.774941.1.13.104.2.7.2. 887969|[id number] for patient tdoe25182-3DldjKEGEQAAPVHIPowrsgdln C-CDA narrative vbag791503438Ysywth E Gingery [address]TXTX[address]5577555U DNAQEVWLBQNVLSEQMFMTD4080-21-47Y82:10 :201.2.840.328001.1.72.3.15|1.2.840.1 27841.1.13.104.2.7.2.727879_[id number] 9 Carmen Rivera [facility] 2023-09-08 13:42:41 9071-81-03I72:42:41 DC hold for clear urine from continuous bladder irrigation. 04086-0Nhjydktte department FhgqYO3189-20-75B34:43:29Emergen department NoteTXT1.2.840.898271.1.13.104.2.7.2. 745312|[id number] for patient xsjq64847-0XsfuDSGHYKQFDZNTvacqkktj C-CDA narrative ebzx321822989NjcxjBrie Juarez RN[address]TXTX7755577555U YLKLAXERDKJIADMUDEPVU8843-54-25Z22:43 :291.2.840.636087.1.72.3.15|1.2.840.1 05657.1.13.104.2.7.2.727879_[id number] 5 Brie Juarez RN [facility] 2023-09-08 13:10:26 0892-13-14T19:10:26 1400 ml urine emptied from stovall irrigation, pink in color. Patient is alert and oriented x4, respirations are even and unlabored, PPPX4, skin warm and dry, skin color appropriate to race. Discussed plan of care with patient, comfort measures provided, call light within reach and patient verbalizes understanding of how and when to use. 61890-9Ozshmmrkf department MzfeNF4717-37-07N61:11:22Emergency department NoteTXT1.2.840.259298.1.13.104.2.7.2. 562331|4665897414GLYghrvcdnn for patient zcvy93820-0WhxqRQMETJTAUAPHbofkugxw C-CDA narrative lyby958117342Qxnhxers L Enloe RN[address]TXTX[address]5577555U NKNLGFPPIOBVVXVOKIDMU4618-32-75C05:11 :221.2.840.534980.1.72.3.15|1.2.840.1 05497.1.13.104.2.7.2.727879_[id number] 3 Lina Gresham RN [facility] 2023-09-08 11:35:00 8633-50-53I44:35:00 Franck Crow is a 83 year old [...] about bladder irrigation with physician at bedside. 52349-7Hcifegpli department KdknRR3194-06-21C60:11:23[facility] NoteTXT1.2.840.752555.1.13.104.2.7.2. 478701|7526033226NJAsohmymyg for patient ohgy85966-8GpkqEXLCGIPBTZKTjoijpwdb C-CDA narrative text[address]TXTX7755577555U BPHZAIQMEIBWZUTTPFZNW0794-49-38J03:11 :231.2.840.034773.1.72.3.15|1.2.840.1 31550.1.13.104.2.7.2.727879_[id number] 4 [facility] 2023-09-08 11:18:14 4516-50-11W18:18:14 Franck Crow is a 83 year old female via wheelchair to triage with c/o passing blood clots in urine. Pt. Reports was seen in ED yesterday for same complaint. Pt. Is on 3L nc oxygen d/t COPD/emphysema. Pt. Dx with bladder cancer at 80, treated, but thinks cancer is back. Pt. Aaox4, to room for eval. 11732-8Jqtiyqpos department Triage xtfiYF2788-27-82Y66:22:50[facility] Triage noteTXT1.2.840.469342.1.13.104.2.7.2. 323282|8440652226OSNsttkutae for patient cbsl83876-4Tbhhxkolp department NoteLNNARRATIVEFormatted C-CDA narrative cssh786651405Miqze M McCoy RNUT[address] ZsssFaxsnehuiAdwcirfqdCWIR0468602942Y LCAXYYQPQIKLNQFZVJYGS0072-81-62Z51:22 :501.2.840.085169.1.72.3.15|1.2.840.1 56512.1.13.104.2.7.2.727879_[id number] 0 Pina Mauricio RN [facility] 2023-09-08 11:01:00 4688-15-29F71:01:00 [facility] Emergency Department NotePatient Name: Franck NewsomDate of : 1940 83 year old femaleTreatment Room: [address] [place] [address] Record Number: [id number] Care Physician: Mimi BlakelyPatient Escorted by: Family [...] Urothelial Carcinoma of the Bladder, Stage II (oK2xD0aC1), s/p TURBT, NAC Cisplatin+ Gemcitabine, trimodality therapy [...] nausea or flank painHistory provided by: PatientLanguage dean of women used: NoPast Medical History/Immunizations:Past Medical History:Diagnosis Date [...] History:Past Surgical History:Procedure Laterality Date ESOPHAGOGASTRODUODENOSCOPY N/A 11/23/2021urgeon: Nicole Dawson MD; Location: ENDOSCOPY ([facility]) OR LOCATION EYE INJECTION (SPECIFY) HYSTERECTOMY PHACOEMULSIFICATION OF CATARACT WITH INTRAOCULAR LENS IMPLANT Right 01/30/2018Dr. Barak PHACOEMULSIFICATION OF CATARACT WITH INTRAOCULAR LENS IMPLANT Right 01/30/2018Surgeon: Matthew Cancino MD; [facility] [place] PHACOEMULSIFICATION OF CATARACT WITH INTRAOCULAR LENS IMPLANT Left 11/03/2020urgeon: Matthew Cancino MD; [facility]: [facility] [place] REVSC OPN/PRQ ILIAC ART W/STNT PLMT & [...] obstructive pulmonary disease, unspecified COPD typeProcedures:ProceduresMDM:Medical Decision MakingThis is an 83 yo female patient with [...] taking these medicationsNo medications on fileFollow-up:Electronically signed by:Jennifer Jeffery [facility], PGY-1AsaJennifer oliver MD09/08/23 1200AsanaJennifer MD09/08/23 1206 ssociated attestation - Lynsey Bell MD - 09/08/2023 12:49 PM CDT I personally examined the patient on 09/08/[address] Jeffery's resident note as written . I actively participated in the decision-making process. Please see the resident's note for additional details.75530-7Dnmppmbwk Emergency department [id number], Andres1.2.840.780301.1.13.104.2.7.2.8 79609DcoovkbaCnokjxWK0779-77-55G01:49 :30Physician Emergency department NoteTXT1.2.840.392539.1.13.104.2.7.2. 601557|[id number] for patient gvbq78477-0Tsbzrgsex department NoteLNNARRATIVEFormatted C-CDA narrative textFM-FAMILY MEDICINEFM-FAMILY [address] BosrKvzpeqxoqUjmxnfcplEILB4681972653Y BDMXAIVASVTLJQWVGEANY6741-94-27K55:49 :301.2.840.120370.1.72.3.15|1.2.840.1 45050.1.13.104.2.7.2.727879_[id number] 6 [facility] 2023-09-08 11:01:00 3968-08-01F64:01:00 Medical Decision MakingProblems Addressed:Chronic obstructive pulmonary disease, unspecified COPD type: chronic illness or injuryHematuria, unspecified type: chronic illness or injury with exacerbation, progression, or side effects of treatmentHistory of bladder cancer: chronic illness or injuryAmount and/or Complexity of Data ReviewedExternal Data Reviewed: labs, radiology and notes.Details: From her recent visits reviewedCase seen and evaluated by me at bed side with Dr Jeffery Agency Sales Representative working under my supervision, see her complete note for additional detailsLynsey Bell MD09/08/23 1330 17899-7Eotiwgxad Emergency department PeajUH7755-31-12D39:30:43Physician Emergency department NoteTXT1.2.840.604573.1.13.104.2.7.2. 415298|[id number] for patient krhz32108-0Sfcujfuox department NoteLNNARRATIVEFormatted C-CDA narrative textUT[address] LnmgVwzjsrycfVqvkkfupzMNMY7736366197M KFRSYUEWAXPXJDWVRPFYJ8907-52-08U92:30 :431.2.840.665547.1.72.3.15|1.2.840.1 23127.1.13.104.2.7.2.727879_[id number] 7 [facility] 2023-09-08 10:48:36 4256-50-54P79:48:36 Left detailed voicemail on patient phone with the purpose of the call and the contact information for pt to return call to clinic to speak with Carmen Rivera RN.Noted patient went to the emergency room for evaluation. 37575-0Wpskppozh encounter PegeLR6630-83-81U02:49:17Telephone encounter NoteTXT1.2.840.755572.1.13.104.2.7.2. 527585|4147448785YUHbnszsoqr for patient vkdk13909-4XmedOHPEYTRFGVHExpbsafjf C-CDA narrative fyvl976301483Edfuhl E Gingery [address]TXTX[address]5577555U VSRTNLAQTPWWAXJMZJFXE7864-53-46X32:49 :171.2.840.405832.1.72.3.15|1.2.840.1 45735.1.13.104.2.7.2.727879_[id number] 0 Carmen Rivera RN [facility] 2023-09-08 10:20:07 0442-17-58O28:20:07 Patient calling to notify of going back to the ER. Please contact patient at [phone] signed by Idalia Mccauley at 09/08/2023 10:20 AM PRM94564-0Cswyaxarz encounter GdaoRL7438-94-68I56:20:49Telephone encounter NoteTXT1.2.840.920056.1.13.104.2.7.2. 207469|4629997421REOyfnesvwe for patient zsvs60992-2GozjPCLJILACJIEUyqlwhwwp C-CDA narrative savv776721042Rnrw [address] YnkxQbdnnatvuRfnqiwpnfDSNW6277006927V SBDLZKYTGNEVXRZKFKCZF6781-80-86E43:20 :491.2.840.128942.1.72.3.15|1.2.840.1 37646.1.13.104.2.7.2.727879_[id number] 4 Idalia Mccauley [facility] 2023-09-07 17:56:46 2182-02-88G62:56:46 Voiding accident in bed, assisted with hygiene, mild SOB, patient needs a few minutes and will be taken to the lobby in a WC d/t DC. Pt pleasant, cooperative, and NAD noted. 70978-5Pzscspnok department RtdzXI2241-51-93O03:57:54Emergen department NoteTXT1.2.840.389462.1.13.104.2.7.2. 803825|3807401403VLPggiowzng for patient xggq29322-2DvgoZUKDIAUOXAYMiawdbsip C-CDA narrative elog698577001Fxvmji Campos MAURER[address] StreetKfxhAfbmqwtpnOwawahhxwJYKN6884353479G QJRHVWLLHXYGKWLOMDKJL3376-00-54D79:57 :541.2.840.607690.1.72.3.15|1.2.840.1 17329.1.13.104.2.7.2.727879_[id number] 6 Terrance Gasca RN [facility] 2023-09-07 17:29:41 5958-27-98Y17:29:41 Patient given printed and verbal discharge instructions [...] gait and in possession of all belongings. 66886-9Koyphccea department AothRF3856-17-15U44:30:09[facility] NoteTXT1.2.840.859774.1.13.104.2.7.2. 707994|8044160173ZERirkpyedr for patient aypc62658-8ZqljDJLULDUYFATRbnziptlk C-CDA narrative text[address]TXTX7755577555U DAHZQGRDZNYVEROECWYTD1092-68-44X60:30 :091.2.840.892368.1.72.3.15|1.2.840.1 35062.1.13.104.2.7.2.727879_[id number] 8 [facility] 2023-09-07 17:09:13 6033-57-66R75:09:[address] Bermudezlectronically signed by Sharon Najera RN at 09/07/2023 5:09 PM YNM58128-6Ghdjpknso[address] [place] [address] CvhqNS5350-91-38B38:09:23[facility] NoteTXT1.2.840.251283.1.13.104.2.7.2. 022671|6933196276VIKrymlozrl for patient oayt38257-8JxrwXPFIUTFPRQOBrkftqhqi C-CDA narrative tiwf124506102Oooan Nini RN[address] StreetPcwfLchqwstwyTtmvxncrgVOFT0176196470F NVCOMNOSEJGFPFPOZAUCM0328-69-61M43:09 :231.2.840.923432.1.72.3.15|1.2.840.1 11297.1.13.104.2.7.2.727879_[id number] 5 Sharon Najera RN [facility] 2023-09-07 15:44:16 0807-38-71H10:44:16 Straight cath the pt with a female RN a bedside. Pt pleasant, cooperative, UA collected, and going off unit d/t [place]. [address]-6Rfnsztkid department MfuiKG8603-91-51D59:48:55[facility] NoteTXT1.2.840.546001.1.13.104.2.7.2. 615633|2625642379YTSkbmirosd for patient xkca04182-1WwynHTKBSPYVMSBEwgdyuvbu C-CDA narrative [address] BhhbSsbrnvtstQfizatkhoABTZ1296365253D XYBOWBRASUPJZQULNYDEH6181-41-55J35:48 :551.2.840.584053.1.72.3.15|1.2.840.1 79437.1.13.104.2.7.2.727879_[id number] 4 [facility] 2023-09-07 14:16:56 1433-68-84C00:16:56 Pt reported waking up 4-5 am, went [...] abd pain, N/V/D, dizziness or light headiness. 43672-3Nxkpuoobj department GwheSM4364-45-97Q06:22:28[facility] NoteTXT1.2.840.531062.1.13.104.2.7.2. 797790|9700239626YQWzhtlkolb for patient syna93033-9QwudERUKZZIPYPBMlhhuxoiv C-CDA narrative textUT[address] StreetvestonGalvestonTXTX7755577555U UVUPBCVDDDDZDBQDVUFZG2425-74-10D55:22 :281.2.840.626872.1.72.3.15|1.2.840.1 65316.1.13.104.2.7.2.727879_[id number] 9 [facility] 2023-09-07 14:03:32 4923-79-79P83:03:32 Franck Crow is a 83 year old [...] Pt to er room for further eval 95578-8Gjnnaaefe department Triage xcwqRK3871-70-03Y40:05:27[facility] Triage noteTXT1.2.840.257924.1.13.104.2.7.2. 344881|6532257757RPKfkeqbqkq for patient zwmv80984-6Dnddoflvb department NoteLNNARRATIVEFormatted C-CDA narrative lrha714697981Liyyske Huff RNUT[address] StreetvestonTXTX7755577555U GXNCIVYEMOPRZQKIBUMIY3352-71-28H39:05 :271.2.840.921397.1.72.3.15|1.2.840.1 13216.1.13.104.2.7.2.727879_[id number] 9 Tuan Ortiz RN [facility] 2023-09-07 13:32:23 3586-72-09Q39:32:23 Agreed with recommendation. 31507-3Msogtdikc encounter MauwIC0819-41-88L43:33:00Telephone encounter NoteTXT1.2.840.177853.1.13.104.2.7.2. 801228|5565874645MBPwlxcxdsk for patient ckvm75233-4LtnaGIGOMETICTKOrqbffcug C-CDA narrative textPA-PHYSICIAN COMPLAINT MANAGER MIDLEVEL PROVIDERPA-PHYSICIAN COMPLAINT MANAGER MIDLEVEL PROVIDER[address] NlteCsnuglpfnPrwguuvihLIZP4170410142M VMVMLEULOMDAGHSNNIGGD7980-56-48D61:33 :001.2.840.226737.1.72.3.15|1.2.840.1 15715.1.13.104.2.7.2.727879_[id number] 8 PA-PHYSICIAN COMPLAINT MANAGER MIDLEVEL PROVIDER [facility] 2023-09-07 13:31:00 8911-03-26D76:31:00 [facility] Emergency Department NotePatient Name: Franck AguilaromDate of : 1940 83 year old femaleTreatment Room: [address] [place] [address] Record Number: [id number] Care Physician: Mimi BlakelyPatient Escorted by: Self [9]Mode of Arrival: Personal means [1]EMS Treatment Prior to ED Arrival:Travel and Exposure Screening:SymptomsDoes patient have any of these symptoms?: (not recorded)Exposure ScreeningHas patient had contact with someone with a communicable disease in the last month?: (not recorded)Diseases exposed to:: (not recorded)Is Patient ?: (not recorded)Exposure Date: (not recorded)Chief Complaint:Chief ComplaintPatient presents withDYSURIAHistory of Present Illness:XHN79la 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 AdebayoPHACOEMULSIFICATION OF CATARACT WITH INTRAOCULAR LENS IMPLANT Right 01/30/2018Surgeon: Matthew Cancino MD; Location: [facility] OR LocationPHACOEMULSIFICATION OF CATARACT WITH INTRAOCULAR LENS IMPLANT Left 11/03/2020urgeon: Matthew Cancino MD; Location: [facility] OR LocationPR REVSC OPN/PRQ ILIAC ART W/STNT PLMT & [...] Mathew Marques MD; [facility]: [facility] [place]Review of Systems:Review of SystemsConstitutional: Negative for activity [...] Flank pain, kidneystonesuspectedhematuria .History independently obtained from [facility]: "urinary retention since thismorning ". History of [...] 200 mgFirst Provider Eval:ED EventsDate/Time Event User Tznvzgrw28/08/24 1449 Medical Screening Begins TOMAS MARTIN MD --09/07/23 144 First Provider Evaluation TOMAS MARTIN MD --ED [...] follow-upMimi Blakely MDSpecialty: FM-FAMILY MEDICINERelationship: PCP - [facility] AND NWNRJEP80734 [facility] [address]Esrlg: [phone] signed by:Tomas Martin DO09/07/23 1652Tomas Martin DO09/07/23 1729 00315-9Iwezbqhej Emergency department DnwvXA9368-51-74Q31:29:54Physician Emergency department NoteTXT1.2.840.470831.1.13.104.2.7.2. 603913|[id number] for patient aqwu81606-2Ngmhmqggi department NoteLNNARRATIVEFormatted C-CDA narrative textUT[address] HcwiWwocrnkguIhyeytqcbIOGO3264589561T XCHMJFUEQSTGBXFMTTSTT0315-46-79T38:29 :541.2.840.370875.1.72.3.15|1.2.840.1 98609.1.13.104.2.7.2.727879_[id number] 2 [facility] 2023-09-07 12:03:43 4416-25-83U00:03:43 Informed my name is Carmen Loza support [...] states she was going to go to [facility] in [place]. Informed the patient, I would notify Dr. Loza's team. 74694-0Qpdkdcmdm encounter MpxjDV8961-66-83K98:18:09Telephone encounter NoteTXT1.2.840.237359.1.13.104.2.7.2. 304442|9976875747XAFmgwmgjwp for patient zjyh43334-8CeekCYKWTPJTSTUVzdtnybsg C-CDA narrative grfb831305124Oaierg E Gingery RNUT[address] StreetTXTX7755577555U QPLUILPCNSZRESGULGLTU3623-38-17T81:18 :091.2.840.279529.1.72.3.15|1.2.840.1 29811.1.13.104.2.7.2.727879_[id number] 4 Carmen Rivera RN [facility] 2023-09-07 10:41:44 1179-96-34T49:41:44 Patient called and requested to speak with [...] ER. Please contact patient for follow-up.Thank you. 00140-3Ryvwwabqk encounter RqdbUS5079-69-49E73:09:06Telephone encounter NoteTXT1.2.840.512006.1.13.104.2.7.2. 352303|6366212881CWUgfflmkfe for patient wcjg88421-3OidoLBDWCLQWLODQeltsxtlb C-CDA narrative vqyh678272047Wdulu Shae Mao[address]TXTX7755577555U ZPAKKNHYLIRRDQBVTXXRT3928-60-02R80:09 :061.2.840.873799.1.72.3.15|1.2.840.1 66596.1.13.104.2.7.2.727879_[id number] 2 Chichi Mao [facility] 2023-08-22 09:05:09 2794-54-99Q83:05:09 Refill sent to pharmacy 85294-0Jkoyjkvxv encounter GdxjAN5993-39-68X96:05:25Telephone encounter NoteTXT1.2.840.317636.1.13.104.2.7.2. 510527|5080596878VVOoqbrtfat for patient icvk59125-8YgeqPRJHGCHEGPDXhvlqpsmn C-CDA narrative text[address] StreetTXTX7755577555U ZGZYXYEXOSTWUFEQFYNEB9211-48-13I44:05 :251.2.840.295103.1.72.3.15|1.2.840.1 26959.1.13.104.2.7.2.727879_[id number] 6 [facility] 2023-08-19 13:32:33 4298-65-13U06:32:33 Franck Crow is a 83 year old femalePt is calling to request albuterol spray, Pt states, pharmacy has not received prescription, [id number] [address] Khd: [phone] signed by Jyoti Abraham at 08/19/2023 1:33 PM JPJ83145-6Kqckqwxvp encounter CfuyGB1258-01-24L99:33:11Telephone encounter NoteTXT1.2.840.867193.1.13.104.2.7.2. 623426|5606202919LYIjpxuzytp for patient ffma98571-4FweaESSBNJDMCLQGqazwoijk C-CDA narrative jcrk341649744Rmhqss N [address] LvrfWqxouqmunOjagbrwgkNOFS5395848120B RYPVMQZNLJSEKHIWIEVJI0673-64-08Y24:33 :111.2.840.694945.1.72.3.15|1.2.840.1 37079.1.13.104.2.7.2.727879_[id number] 9 Jyoti Abraham [facility] 2023-08-17 10:54:52 8653-20-91E39:54:52 Informed my name is Carmen Loza support nurse. Pt identified by name and . Spoke with the patient, states to reschedule her labs and follow up appointment with Dr. Loza, informed the patient that I would have someone contact her to assist with rescheduling both her appointments.Patient acknowledged understanding of all the information provided by the nurse. 37114-3Weoxwjnfn encounter BeemQO4392-22-77O35:00:35Telephone encounter NoteTXT1.2.840.202283.1.13.104.2.7.2. 625144|[id number] for patient owrf19024-5VtnhEJBJYECADNUWmnqkdgdh C-CDA narrative [id number] DAVIS[id number] VWIEERIPKHYGZYGWOGOKW6531-49-86X45:00 :351.2.840.604770.1.72.3.15|1.2.840.1 89911.1.13.104.2.7.2.727879_[id number] 8 Carmen Rivera RN [facility] 2023-08-16 16:30:49 9298-35-74U96:30:49 Patient returning call to supporting nurse Carmen. 69275-8Lcucsprza encounter AgfgAE3626-82-01I96:31:09Telephone encounter NoteTXT1.2.840.150158.1.13.104.2.7.2. 730191|[id number] for patient ljlx57608-2MflkHWCBFGMHXWXIqzforteh C-CDA narrative [id number] Garrick[id number] PPCGWQGYFPBIANTEXFLNC2829-01-72O61:31 :091.2.840.509346.1.72.3.15|1.2.840.1 97669.1.13.104.2.7.2.727879_[id number] 3 Idalia Mccauley [facility] 2023-08-16 15:28:31 8673-68-11Q24:28:31 Left detailed voicemail on patient phone with the purpose of the call and the contact information for pt to return call [place] [address]-8Cxxzcgdau encounter IlwfEF1559-46-31R28:29:16Telephone encounter NoteTXT1.2.840.733689.1.13.104.2.7.2. 895562|[id number] for patient weyg94565-1LpzoMPZLZSJARYTRrhdmyeww C-CDA narrative [id number] E Gingery RN[id number] NECEKLBCMVLRKHLJFXKJF5312-47-05T00:29 :161.2.840.431443.1.72.3.15|1.2.840.1 42405.1.13.104.2.7.2.727879_[id number] 4 Carmen Rivera [facility] 2023-08-15 09:07:09 5760-11-78R98:07:09 The patient would like to speak with Dr Loza, the last visit she thought she was told that he had done all he could she would like to have a better understanding of should she be seen. 63506-7Uiicctnqj encounter IzdjJE6858-81-54L76:08:50Telephone encounter NoteTXT1.2.840.000513.1.13.104.2.7.2. 391206|[id number] for patient vgmh17235-3KeuwAJOSVUGOKIZZuqgikjxu C-CDA narrative ifxe653199721Xqbcm E. Williams[id number] OKTQEZZETJCBHUIJXXPOO3384-14-82G11:08 :501.2.840.941109.1.72.3.15|1.2.840.1 91731.1.13.104.2.7.2.727879_[id number] 7 Dorinda Mao [facility] 2023-07-12 10:26:23 4834-05-24H75:26:23 Called and spoke with patient - requesting [...] to her MAR 04 for reviewVerbalizes understanding. 64649-3Oyfmcvbss encounter YvutKH9295-29-27Q35:38:34Telephone encounter NoteTXT1.2.840.804246.1.13.104.2.7.2. 941454|[id number] for patient wfmj44154-3KkblORXSJEVZBZPCaxbhnnwu C-CDA narrative [address] Ie[id number] UUIECFOXFTSYSQSOJUOCJ8506-30-66H84:38 :341.2.840.822742.1.72.3.15|1.2.840.1 68566.1.13.104.2.7.2.727879_[id number] 2 [facility] 2023-07-12 09:50:16 8306-10-92Q25:50:16 Copied from [facility] #[id number]. Topic: Clinical - Medical Advice>> Jul 12, 2023 9:48 AM Patient [employer] Consultant wrote:Franck Crow is a 83 year old femalePt takes sertraline and buspar but feels that she needs a third medication. She woke this morning and start having anxiety. She is asking if the doctor would prescribe a 3rd medication. She has an upcoming appt on 07/14 Please call [phone]. 19823-7Owisvhoxm encounter ApeqRU3235-08-44B85:53:14Telephone encounter NoteTXT1.2.840.782599.1.13.104.2.7.2. 317000|[id number] for patient bjka63946-6XfwhNOHNTJAXBCXRppjlzuio C-CDA narrative ubqi588573890Thdqyfvb [address]TXTX[address]7555U EBVBUCHYDPJXLUIRCARLC3489-45-45L77:53 :141.2.840.957924.1.72.3.15|1.2.840.1 41457.1.13.104.2.7.2.727879_[id number] 8 Paloma Goddard [facility] 2023-07-08 16:47:07 6076-31-07C85:47:07 Attempted to speak to Franck Crow with no success- Left VoicemailIf patient returns call please ask what medication she is referring to. 37632-3Johuikpsb encounter OiuoJN2147-64-75R70:54:38Telephone encounter NoteTXT1.2.840.140915.1.13.104.2.7.2. 674064|[id number] for patient ewkh45040-7HbvmCAIYIMOXDHUDkpmcresj C-CDA narrative hpxo185795300Huktn L Garza [address]TXTX[address]7555U YFJNYJWJEBYHJVJKMMMMF9383-05-98K94:54 :381.2.840.245683.1.72.3.15|1.2.840.1 71398.1.13.104.2.7.2.727879_[id number] 6 Kathi Oshea RN [facility] 2023-07-08 16:29:16 1578-84-92U12:29:16 Copied from [facility] #[id number]. Topic: Clinical - Missed Call from Provider>> Jul 08, 2023 4:26 PM Patient [employer] Consultant wrote:Franck Crow is a 83 year old femaleReturning a call from Dr. Blakely's nurse. Please call patient back. Thank you. 57825-0Saedyqbdj encounter VwgpSW8015-58-45Y14:30:17Telephone encounter NoteTXT1.2.840.573705.1.13.104.2.7.2. 379059|[id number] for patient zvpw53633-3IykiKICCMXAPNBNXmsvdenjx C-CDA narrative ictq551012533Gpgsrtg R [address] AvhhRzcdwphvcFncjjzmvcHBBW0105893168N NUAIDWDRKPVIAMMOCAHTN5846-17-71T59:30 :171.2.840.981805.1.72.3.15|1.2.840.1 15838.1.13.104.2.7.2.727879_[id number] 7 Dayanna Perez [facility] 2023-07-08 13:34:48 9933-66-85T27:34:48 2. AnxietyChronic, improving.Increase to sertraline 100 mg [...] Franck Crow with no success- Left Voicemail 12305-6Ljyqnstla encounter YxegRN8330-56-14C69:41:02Telephone encounter NoteTXT1.2.840.257945.1.13.104.2.7.2. 233758|4523804630QXEpopqfokk for patient miqv33166-0JnngLUHWMUBAOSXVwzotczpi C-CDA narrative text[address] KhnfGtoyfjdtlYonrucdokSKUG8094460637S SLLZTQFYIHEYDJYDISTBQ9113-08-33N92:41 :021.2.840.257101.1.72.3.15|1.2.840.1 47948.1.13.104.2.7.2.727879_[id number] [address] [place] [address] 2023-07-08 13:08:35 0129-15-89M26:08:35 Franck Crow is a 83 year old femalePt is calling stating she is needing a refill on her medication for anxiety attacks, pt states she does not know the name of med but pt states she takes it once a day.Pt states she does not have any of those meds left.[id number] [place] [address]Qergi: [phone] Ytacbxtemhvpci signed by Nickolas Dunham at 07/08/2023 1:12 PM KHN28214-1Pnqgrztbw encounter GgymNH4855-74-51X02:12:00Telephone encounter NoteTXT1.2.840.760131.1.13.104.2.7.2. 283545|2486124225USOcmqywmei for patient hepd19512-8MqbzLAWJIYCRABYZkafdnraq C-CDA narrative ttli175880322Rvibf Morales [address]TXTX[address]7555U BIMXICMUEFEZZMIHVXFMQ3214-10-73F67:12 :001.2.840.258693.1.72.3.15|1.2.840.1 55281.1.13.104.2.7.2.727879_[id number] 2 Nickolas Gonzalez [facility] 2023-06-24 10:46:29 7335-50-64B33:46:29 ALEXEY 05/27/23NOV 07/15/23Last Filled 05/27/23 Qty 30 With 1 refill(s)Okay to refill? 74236-6Mrsfvqvij encounter JsnoRQ1959-62-29I56:46:49Telephone encounter NoteTXT1.2.840.326617.1.13.104.2.7.2. 484854|5577527076WIZehltfkkb for patient ztfv73920-1HwmsCSYRLYRMOGUKivhmvsfc C-CDA narrative zvfs835233579Csfbnro N Ware [address]TXTX[address]7555U KQRXDTHWDHKDAOSSFOEAW3397-15-79M83:46 :491.2.840.930903.1.72.3.15|1.2.840.1 49324.1.13.104.2.7.2.727879_[id number] 6 Vickie Arora MA [facility] 2023-06-17 12:42:43 9190-39-84S37:42:43 Patient informed on message from provider below. 78132-6Cyzjascqx encounter UvrgQN5411-00-92K25:43:09Telephone encounter NoteTXT1.2.840.992625.1.13.104.2.7.2. 526654|6578733071ITYvlzvufzj for patient svmz16965-8MrwjYNOSIQESZTOOogrlgheo C-CDA narrative gicx765888066Xeuys L Garza RNUT[address] StreetvestonTXTX7755577555U MYJANZETCXDYIQYKTWBSI5326-35-70P09:43 :091.2.840.296226.1.72.3.15|1.2.840.1 12274.1.13.104.2.7.2.727879_[id number] 1 Kathi Oshea RN [facility] 2023-06-16 16:25:34 3575-01-26A66:25:34 Attempted to speak to Franck Crow with no success- Left Voicemail 81640-7Kbwvdeetm encounter TybwJT3484-22-11I20:25:57Telephone encounter NoteTXT1.2.840.150092.1.13.104.2.7.2. 949838|3452204999KIEuryfwwrb for patient tbfl50954-2RmvcAUPECIOQGFYQvlmrxecq C-CDA narrative text[address]TXTX7755577555U JEPVZYMROGDSAKFBMFAQO6179-51-42F85:25 :571.2.840.226180.1.72.3.15|1.2.840.1 52219.1.13.104.2.7.2.727879_[id number] 0 [facility] 2023-06-16 15:06:54 0941-03-22X27:06:54 There are no interactions 86079-5Umrqjlhfd encounter EcklTO3728-73-70A02:07:06Telephone encounter NoteTXT1.2.840.252607.1.13.104.2.7.2. 202734|1241587709WNJahhdkxan for patient luoq26515-3WninGLBJCUVSOEIVljaneokj C-CDA narrative text[address]TXTX7755577555U DXZZGVMSAHPPZZFKSJUCT2794-49-74S77:07 :061.2.840.833516.1.72.3.15|1.2.840.1 41097.1.13.104.2.7.2.727879_[id number] 8 [facility] 2023-06-16 14:35:31 0031-85-27T45:35:31 Routing to provider . Please advise 50233-9Uvjgamaok encounter XkbsLM6755-27-96M71:35:48Telephone encounter NoteTXT1.2.840.973727.1.13.104.2.7.2. 675759|8193078163YHDuktwipot for patient ibea71271-2SwfcAWUCXTGWFJAXjzwfxwqp C-CDA narrative tsfa052181811Vetojtzsandip Harper MA[address]TXTX[address]5577555U PSYNIBBQYDKKGSMKPGXOQ5849-58-40K59:35 :481.2.840.543277.1.72.3.15|1.2.840.1 53296.1.13.104.2.7.2.727879_[id number] 5 Kassy Harper MA [facility] 2023-06-16 13:40:38 5795-19-38P14:40:38 Franck Crow is a 83 year old femalePt called because she got some OTC acid reflex medication and she wants to know if its ok to take it with her other medication. Please advise.calcium carbonate 500 mg 45939-6Nclfhfufo encounter LqdtGM1959-31-79P76:42:31Telephone encounter NoteTXT1.2.840.613361.1.13.104.2.7.2. 383132|4759594406PEZktskhwqb for patient hqam62271-3AyrzHNVMIMZUPEBLjqivrelw C-CDA narrative molc974113747Rrmsjkdj Stance[address] FxziIlutluzrmBwyiabhoiTXHQ0502344281U WKOTULRUOQSINLYVKPAQM4639-50-20G10:42 :311.2.840.888047.1.72.3.15|1.2.840.1 78322.1.13.104.2.7.2.727879_[id number] 2 Conrado Rodarte [facility] 2023-06-13 09:02:49 2414-88-07I74:02:49 Franck Crow is a 83 year old femalePt called because she is trying to get a refill on a medication and [facility] said she had no more refills. Pt said she only has one more pill left please adviseSERTraline 100 mg tablet[facility] [id number] [address] Love CastorenaPhone: Xtkvlauzgkgauk signed by Conrado Rodarte at 06/13/2023 9:04 AM GYM37296-5Foblbcbbp encounter VadsMI6661-57-14D42:04:31Telephone encounter NoteTXT1.2.840.104062.1.13.104.2.7.2. 718394|3943756633PGXchlvawcn for patient bdal96713-2MdmfRZNIJDAQDMIVrnqdhxlp C-CDA narrative text[address]TXTX7755577555U HLJCTSPBUYOIZJLXRINIE9155-08-58Y85:04 :311.2.840.497719.1.72.3.15|1.2.840.1 38005.1.13.104.2.7.2.727879_[id number] 5 [facility] 2023-06-10 15:08:44 0595-00-66V84:08:44 Patient given printed and verbal discharge instructions [...] steady gait, in possession of all belongings. 80494-6Xejktajuz department DngdHS5843-91-98T94:09:37Emergency department NoteTXT1.2.840.722996.1.13.104.2.7.2. 235583|4546859692SEIfrxvduvq for patient dmcz67912-1PkpgFEZMWZZWVGAIspiuiwye C-CDA narrative [address]TX[address]5577555U FDOSSXCOVOCORUQKYXTHN8941-03-69P79:09 :371.2.840.235384.1.72.3.15|1.2.840.1 56451.1.13.104.2.7.2.727879_[id number] 4 [facility] 2023-06-10 14:13:19 9699-05-13R03:13:19 Pt provided with bedside commode [address] NotzIC8089-19-92T20:13:26[facility] NoteTXT1.2.840.888908.1.13.104.2.7.2. 260387|2870486176KRAlugpfyox for patient hfeo69792-0NdhfCAGIJOCXXPREqzfouhmw C-CDA narrative ppzx582686281Krpm A Brown RNMATTHEW[address]TXTX7755577555U ETSHBKXILYMBUOBPNPIQK9729-30-71G80:13 :261.2.840.527849.1.72.3.15|1.2.840.1 43238.1.13.104.2.7.2.727879_[id number] 3 Michael Hayes RN [facility] 2023-06-10 12:38:40 5230-45-73X78:38:40 Pt reporting she is breathing easier and less anxious after neb treatment; currently 99% on 3L NC. [address] NvdkRQ3085-95-76A06:39:15[facility] department NoteTXT1.2.840.635403.1.13.104.2.7.2. 722630|3526788661HWSdzxujwbr for patient gefe73544-6IcruWESDHOLEBULBwlydqodw C-CDA narrative textUT75 Henderson StreetLuynHclfuebsnNapuwywlkKYLZ3062848410H TXYSJSFZKAZABRMKAOKUK4399-44-33C96:39 :151.2.840.723109.1.72.3.15|1.2.840.1 90734.1.13.104.2.7.2.727879_[id number] 7 [facility] 2023-06-10 11:41:00 0723-31-63J61:41:00 Franck Crow is a 83 year old female who presents to ED via [facility] for c/o shortness of breath which started last night. Went to PCP this morning before being sent here; received duo neb from EMS; visibly labored respirations at this time. 27359-7Vtjqtmacr department YsfjDN8180-71-06H63:44:38[facility] NoteTXT1.2.840.194107.1.13.104.2.7.2. 416560|4496059751FCRtlwegxfn for patient namv94017-0XoqeWRQLTUBINERPkyayxhzj C-CDA narrative textUT75 Henderson StreetPfgbTnebbzzvmThkltihwwHKPZ4554605621G CPIOVJNGXXUDHMSGGCBZR5665-54-80K35:44 :381.2.840.131085.1.72.3.15|1.2.840.1 10473.1.13.104.2.7.2.727879_[id number] 9 [facility] 2023-06-10 11:28:44 6063-01-18G39:28:44 Franck Crow is a 83 year old female presents to ED triage with chief compliant of SOB. Pt states it started last night, went to her PCP and was sent here. Pt received a duo neb on the way here. AAOx4. Skin warm and dry. VSS. RR labored.Roomed for eval 50047-7Voysxycwd department Triage wtyaAG3578-41-77J34:30:41[facility] Triage noteTXT1.2.840.862912.1.13.104.2.7.2. 209172|5953314365TIBeevenrti for patient iqen75775-2Ycgbkxyoj department NoteLNNARRATIVEFormatted C-CDA narrative gdze334574002Ctngkbmk J Sherry [address]VcrkZfknqdpxvSfolmowicRIEB5681103406D TVVYBDHVVOVODFZVLKAZJ1032-71-38V17:30 :411.2.840.377107.1.72.3.15|1.2.840.1 50680.1.13.104.2.7.2.727879_[id number] 0 Madhuri J Sherry [facility] 2023-06-09 14:00:23 1494-24-17E73:00:23 Hakeem pt has an appt 06/10/2023 with Cielo Kong MD and they have an HMO insurance policy and no referral, pls assist with obtaining this referral. Thank you. 32555-7Svbfgghuq encounter BhgzFX6032-91-91Q14:00:57Telephone encounter NoteTXT1.2.840.874215.1.13.104.2.7.2. 008661|7049288182ZHAluaxlkeb for patient nxyt71231-6IvwrGKJJYEYNGKPXfigqwkqh C-CDA narrative icvu136318113Nqxbsu R [address]vdGalvestonGalvestonTXTX[address]5577555U DYSSMCUUOKVOSRWTBUZYN1851-21-39I91:00 :571.2.840.881375.1.72.3.15|1.2.840.1 11260.1.13.104.2.7.2.727879_[id number] 4 José Luis Liu [facility] 2023-06-08 08:06:54 8328-84-29T58:06:54 Franck Crow is a 83 year old femalePt is needing a refill of SERTraline 100 mg tablet. Pt states she has about 3 left. Please advise.[facility] [id number] [place] [address]Ossml: [phone] Qwksozfxircpmc signed by José Miguel Kaur at 06/08/2023 8:08 AM TUL29120-2Bbxkimnzl encounter VsepXB9841-78-09O04:08:05Telephone encounter NoteTXT1.2.840.596182.1.13.104.2.7.2. 072883|0981768134VZPozzjgseo for patient awxa22768-8GeqeTOFNOFRQHXASlvqxyozl C-CDA narrative text[address] XmotOknkgjachJpbleznhrDOPF9725792010J OFGRMHNMDPSXYTHIFOGBN2479-79-82S50:08 :051.2.840.273283.1.72.3.15|1.2.840.1 40709.1.13.104.2.7.2.727879_[id number] 4 [facility] 2023-06-03 16:04:28 0237-00-31I13:04:28 Images from the original note were not included.Received refill request for:Requested PrescriptionsPending Prescriptions Disp RefillsATORVASTATIN 40 mg tablet [Pharmacy Med Name: ATORVASTATIN 40 MG TABLET] 90 tablet 1Sig: TAKE ONE TABLET BY MOUTH AT BEDTIMELOV: 01/31/23 (Virgilio)NOV : 06/07/23 (Kylie)EK11/01/22Labs: 08/26/22 (Lipid Panel)Refill approved in compliance with cardiology guidelines.Pharmacy:[facility] [id number] - [place] [address]Xewnm: [phone] Pgrrlddaqyduyh signed by Dominick Dowell at 06/03/2023 4:11 PM DGU15772-9Iyegexoqe encounter NdvlSG7268-19-87I35:11:37Telephone encounter NoteTXT1.2.840.969373.1.13.104.2.7.2. 137161|1289809014LMThstgdyyf for patient mlew50766-4CnyeCFACNAERPNXFgmfztbqv C-CDA narrative dmrx815704418Azpblnu M. Russell[address]TXTX[address]5577555U QBDOAATIMHWFWWEQJHJNB0766-04-97X94:11 :371.2.840.771228.1.72.3.15|1.2.840.1 64881.1.13.104.2.7.2.727879_[id number] 8 Dominick Dowell [facility] 2023-05-31 15:27:25 2735-62-61V91:27:25 Message sent via Giiv concerning question. 52547-3Xdmhszols encounter YzcoLI0928-81-31O99:27:40Telephone encounter NoteTXT1.2.840.688775.1.13.104.2.7.2. 282130|4391494870PGZtksmakug for patient agxz07956-8ZipjEVGYRQYIXBMVbhlonlcm C-CDA narrative ibhq635984572Ttsjlpo L Klebieko RN[address]TXTX[address]5577555U OSLGDRBWTFSMYOVULJSEH1416-16-88R76:27 :401.2.840.904134.1.72.3.15|1.2.840.1 67863.1.13.104.2.7.2.727879_[id number] 8 Dominique Snider RN [facility] 2023-05-31 10:14:44 7318-33-74G00:14:44 ALEXEY- 4PLAN-Discussed options including conservative management with activity modification/ice & heat/NSAIDs or hip CSI-Meloxicam 7.5 mg daily PRN prescribed-Refer to PT for hip strengthening and ROM-F/u PRN with APPMedication- Meloxicam for inflammation [facility] 44499-6Nxholadbr encounter YhzxBQ7190-55-86N30:16:58Telephone encounter NoteTXT1.2.840.766722.1.13.104.2.7.2. 696680|1391034978IHLmgsojnvz for patient fpvm07398-4RsizIDBESYIJSRPNdsfggsxo C-CDA narrative textUT[address] HxuvNdehmhmgmXfycsxnnjEUDH8500156670G GJFWTHYLZVXUPCISDDTHN2900-81-60S71:16 :581.2.840.611894.1.72.3.15|1.2.840.1 35229.1.13.104.2.7.2.727879_[id number] 4 [facility] 2023-05-31 08:46:12 4925-34-45T81:46:12 Incoming CallProvider: Greg Jimenez, MDDate of Surgery (if applicable):No surgery foundSurgical Procedure (if applicable): No surgery foundLast Office Visit Date: 05/24/2023Follow up Date: noneDocumentationPt calling today to speak to a nurse to confirm medication prescribed on her last visit. She was told she would be getting medication for inflammation. She would like to make that was correct .Please call ptPreferred Pharmacy:[facility] [id number] - [place], [place] - [facility] [address] Arwrdhpka: Payor: [facility] MANAGED MEDICARE / Plan: WELLMED/AARP MEDICARE ADVANTAGE / Product Type: Medicare Adv HMO / Recent/Fu zenobiae Schedule Appointments at the time of this encounterRecent VisitsDate Type Provider Dept05/24/23 Office Visit Greg Jimenez MD Ortho Faculty-PcpShowing recent visits within past 365 days and meeting all other requirementsFuture AppointmentsNo visits were found meeting these conditions.Showing future appointments within next 365 days and meeting all other requirements 27869-3Qkwfjxydk encounter WpurPN5706-94-15U29:51:27Telephone encounter NoteTXT1.2.840.185241.1.13.104.2.7.2. 431664|6480828353LAIvijoxmxt for patient ziab53440-4PrpaOUMHOIKPTUCLskmsipqa C-CDA narrative eedq145492686Muawv D [address] TfrtMgiisbonvHbifrbdikWYXV0804296086K OHXAILYLUAQWCRSFDHJIV5717-98-26G99:51 :271.2.840.969113.1.72.3.15|1.2.840.1 73077.1.13.104.2.7.2.727879_[id number] 6 Jaycee Kerns [facility] 2023-05-27 10:56:49 2919-40-61M46:56:49 Spoke w/patient and confirmed telehealth appt and explained process. 93187-3Rxmnrqpgb encounter KnjcAB1244-14-77C86:57:14Telephone encounter NoteTXT1.2.840.919883.1.13.104.2.7.2. 927816|7341985715PAVzllkyxio for patient fszm35619-4LhfcFENKQOIFDOAAsilmtuum C-CDA narrative jnli519819857Ifj [address]TXTX[address]5577555U ZRMPOTJEBFXEEQCWWOQFT8852-87-95P99:57 :141.2.840.676230.1.72.3.15|1.2.840.1 80166.1.13.104.2.7.2.727879_[id number] 7 Jenna Cote [facility] 2023-05-27 08:08:38 4252-55-87U39:08:38 Pt calling back. Pt states her phone does have video capability. Please advise. 20878-8Ybidymvnv encounter BxlfJB2247-42-77S59:09:19Telephone encounter NoteTXT1.2.840.781191.1.13.104.2.7.2. 390861|0659006612BFFkwygydxt for patient zehw18651-4IcufNXGQXQLXJWSOftlguabi C-CDA narrative dhki081964232Kxfjkwh A [address]TXTX[address]5577555U DLHHIZTJRJKIKSIQTUTFH3320-43-71R34:09 :191.2.840.003247.1.72.3.15|1.2.840.1 56326.1.13.104.2.7.2.727879_[id number] 5 Starla Bright [facility] 2023-05-26 15:14:33 2948-73-46U76:14:33 Left msg on patients VM, need to verify that her phone does have video capability so that we can turn into a tele health visit 47328-8Ixauzkyum encounter OtgxJV2480-13-08L84:15:19Telephone encounter NoteTXT1.2.840.149060.1.13.104.2.7.2. 908470|4188022581YGCqzweuxfn for patient eizq74687-1ClwqVEWIJLYCBOBYfmlmsuuh C-CDA narrative [address]TXTX[address]5577555U GPJYEZOFXAUZSIJKIRWNS1849-57-71V95:15 :191.2.840.244087.1.72.3.15|1.2.840.1 29183.1.13.104.2.7.2.727879_[id number] 1 [facility] 2023-05-26 12:48:02 4540-68-76V72:48:02 If insurance approves, okay to switch to telehealth/video appointment. 18633-8Nyyznovgq encounter HiakVF9491-75-62Q21:49:29Telephone encounter NoteTXT1.2.840.482422.1.13.104.2.7.2. 265242|5362453708TDFhlequixr for patient cfou93199-2IgkgSSPVCULEKOOMbcqcejfy C-CDA narrative [address]TXTX[address]5577555U KFGIDRNJGDJBEKROFGWZJ7254-74-12X98:49 :291.2.840.231895.1.72.3.15|1.2.840.1 14927.1.13.104.2.7.2.727879_[id number] 6 [facility] 2023-05-25 10:18:41 4753-55-59V30:18:41 Routing to providerPlease advise. 70789-3Cikxnjart encounter IsekFC9722-17-74L40:18:57Telephone encounter NoteTXT1.2.840.024888.1.13.104.2.7.2. 087379|9389273640EZYsdzlycya for patient cuqg91282-5HjhkLIYXBKDUWXRHaxaxgjpi C-CDA narrative hxmi575840645Kioysf T Tamez [address] CtyiMwffgqyoqCsixhyrdfCMQT2541371522A QHCUWLXEBAPECIIYJFNUO8167-77-69A47:18 :571.2.840.717822.1.72.3.15|1.2.840.1 86856.1.13.104.2.7.2.727879_[id number] 8 Ly [facility] 2023-05-25 09:30:24 8894-08-54U26:30:24 Franck Crow is a 83 year old femalePt is requesting her appt for Tuesday be changed to a telehealth due to weather and [place] 57489-8Olofypaxw encounter GpfdSH6641-08-89T01:31:56Telephone encounter NoteTXT1.2.840.554567.1.13.104.2.7.2. 458948|8367112041VARkbaljnng for patient etty36822-0UbaoAIQQSTYWDTTWlvtllexv C-CDA narrative wnsh786839664Qvobsdr A [address] JzxnKpcxraexsSbmohvsdxKYNU3342575835M OHTUVQCLAUZZKKIIODDIH1187-50-85O86:31 :561.2.840.447485.1.72.3.15|1.2.840.1 75751.1.13.104.2.7.2.727879_[id number] 5 Vickie Moreno [facility] 2023-01-14 08:34:50 5049-86-57R69:34:50 Thank you! 16937-9Zhmmuscly encounter SlhmWF4949-57-29M93:34:57Telephone encounter NoteTXT1.2.840.081725.1.13.104.2.7.2. 867926|6574983818NKZesexwmlj for patient yoav66451-2BaedJGHOHNOUCW[address]TXTX7755577555U NCIKYCHRVISMUKZGDYZYS6343-54-01I59:34 :571.2.840.971127.1.72.3.15|1.2.840.1 42518.1.13.104.2.7.2.727879_[id number] 4 [facility] 2023-01-13 10:51:34 5114-60-94Z76:51:34 Spoke with patient and she is scheduled for jan 25 at [facility]. 29501-3Tqjtjdtpb encounter RjimGV6722-71-20O52:52:15Telephone encounter NoteTXT1.2.840.395005.1.13.104.2.7.2. 467025|[id number] for patient [id number] L [id number] OENLTKRPYVERVLFJHCYKW5267-73-66Z58:52 :151.2.840.640123.1.72.3.15|1.2.840.1 84328.1.13.104.2.7.2.727879_[id number] 6 Pita Haile [facility] 2023-01-13 10:13:04 8078-04-54G48:13:04 Requested Prescriptions Pending Prescriptions Disp Refills foLIC acid 1 mg tablet 180 tablet 1 Sig: Take 3 tablets by mouth in the morning. There is no refill protocol information for this order Recent Visits08/12/2022Future Appointments01/21/2023 Orders Only on 01/04/2023 Component Date Value FVC Actual 01/04/2023 2.22 FEV1 Actual 01/04/2023 0.62 FEV1/FVC Actual 01/04/2023 28 No results displayed because visit has over 200 results. Electrical Tech Visit on 08/26/2022 Component Date Value CHOL [...] to pharmacy.Helen Deutsch MA 01/13/2023 10:13 AM 66402-0Nphcnrukx encounter XctoPI5510-05-85P48:14:37Telephone encounter NoteTXT1.2.840.117963.1.13.104.2.7.2. 953190|[id number] for patient jhup37252-8DkacUSRYTYKLHV[address] Tm[id number] MKFRAJNHNAZUXVWQXXMPC0819-98-59D34:14 :371.2.840.018804.1.72.3.15|1.2.840.1 16359.1.13.104.2.7.2.727879_[id number] 1 [facility] 2023-01-13 10:07:56 9189-71-89W29:07:56 Franck Crow is a 82 year old femalePatient is calling requesting orders for DSE to be placed as discussed at [facility].Please advise, thanks! 53545-5Audtxxhmt encounter GfhzQK6718-27-10U41:09:40Telephone encounter NoteTXT1.2.840.766111.1.13.104.2.7.2. 777654|9179897210PLAwiksxawf for patient [id number] A [id number] VOHPVRBCWXTWJJUMDORTZ4901-52-76P76:09 :401.2.840.693354.1.72.3.15|1.2.840.1 86775.1.13.104.2.7.2.727879_[id number] 5 Anamika Ramsey [facility] 2023-01-06 08:42:20 0450-26-16P43:42:20 Duplicate encounter. Form was faxed back 01/05/23. 48204-6Fxojipugb encounter VppgHB6639-12-20E78:42:41Telephone encounter NoteTXT1.2.840.731185.1.13.104.2.7.2. 614221|6538158274OAIntychiuq for patient ynvk69489-7CgpxRB376538929Szsytj Huckabee RN[id number] TVAKAUQOLXQCJYNHVLXTJ6339-40-24B27:42 :411.2.840.145190.1.72.3.15|1.2.840.1 78838.1.13.104.2.7.2.727879_[id number] 3 Mi Santos RN [facility] 2023-01-06 08:03:05 7145-66-23F21:03:05 Rerouting for completion and closure. 98893-0Mtzvxwrgs encounter RvuuRF1307-44-88I75:03:24Telephone encounter NoteTXT1.2.840.620368.1.13.104.2.7.2. 906879|[id number] for patient kujk24965-2ZotgQF837975257Ujizei D [id number] ZYEHRKQWHFAVRCWYYSVBT2213-54-95U77:03 :241.2.840.903784.1.72.3.15|1.2.840.1 44182.1.13.104.2.7.2.727879_[id number] 0 Ramona Diaz [facility] 2023-01-05 16:21:48 4197-87-91B56:21:48 Form faxed to [employer]. [phone]. 39135-2Rvusefscl encounter DiawKF4896-23-35Q02:22:04Telephone encounter NoteTXT1.2.840.554409.1.13.104.2.7.2. 996957|9353820699GTDlhbzsezp for patient gawe40339-7PzhhPK474938868Gkprut Huckabee RN[id number] FRZQEZTUHBGUZDHKBCHOP6244-21-95K25:22 :041.2.840.496364.1.72.3.15|1.2.840.1 35418.1.13.104.2.7.2.727879_[id number] 7 Mi Santos RN [facility] 2023-01-05 13:29:40 8689-25-28X45:29:40 Spoke with patient, identified patient by Name and . Introduced myself as Dorinda Gonzáles RN, clinical technical sales support specialist for Dr. Loza. Patient wanted to know why she had labs scheduled for Dr. Loza and no appointment. Patient was informed that original appointment from 01/17 was rescheduled to 03/07 and lab appointment for 01/14 was not rescheduled. Informed patient that I would let the schedulers know to move lab appointment to 03/04/23. 66625-9Wrdrbeocc encounter PaeuUQ3255-91-86W25:34:36Telephone encounter NoteTXT1.2.840.242555.1.13.104.2.7.2. 624397|1676776315LXFbtwyebdz for patient [id number] N Jones [id number] CZSXBUYZOYFESEQYXFRKN0328-72-01Q32:34 :361.2.840.352190.1.72.3.15|1.2.840.1 43343.1.13.104.2.7.2.727879_[id number] 7 Dorinda Gonzáles RN [facility] 2023-01-05 13:09:03 2265-70-73U35:09:03 Had [facility] inpatient. Interest[facility]. Pt aware will call back when opening. 81508-4Yolswrkbo encounter QtqhFX4559-40-90W11:09:45Telephone encounter NoteTXT1.2.840.759599.1.13.104.2.7.2. 236479|[id number] for patient comr57991-3HzheYK354916197Swrnl Martinez [id number] YBMOHNWYJDWGDXLHCGWUT1037-00-32T79:09 :451.2.840.457821.1.72.3.15|1.2.840.1 57762.1.13.104.2.7.2.727879_[id number] 2 Graciela Durand [facility] 2023-01-05 12:30:51 1384-52-49Z02:30:51 Franck Crow is a 82 year old female patient received a message the labs were scheduled but no current orders in the chart patient had a couple questions as to why it was scheduled in the message it said Dr [place] it up 26754-5Hkedhlqae encounter ZemcLZ6965-35-01B20:34:44Telephone encounter NoteTXT1.2.840.387600.1.13.104.2.7.2. 131878|[id number] for patient [id number] N Edwards[id number] KJGSRWNGFBQJJBXCNWNEP9521-79-17T91:34 :441.2.840.091830.1.72.3.15|1.2.840.1 [id number] 3 Cherelle Lew [facility] 2023-01-04 10:57:55 5708-44-58T92:57:55 Eugene from [employer] calling asking for the form received on 12/30/22 to be signed no later than today. Callback [phone] signed by Ramona Jorgensen at 01/04/2023 10:59 AM HIU30154-2Bkmbigssp encounter BqndBT0993-54-78Q10:59:22Telephone encounter NoteTXT1.2.840.361055.1.13.104.2.7.2. 743177|[id number] for patient kitg69619-6ZunkILZYBMZHAQ[id number] ITLKGUNFEQSBRAPQYKHQO9189-09-08L23:59 :221.2.840.098261.1.72.3.15|1.2.840.1 79785.1.13.104.2.7.2.727879_[id number] 9 [facility] 2023-01-04 09:59:40 7119-36-09A71:59:40 Attempted to contact pt, no answer, left vm for pt to call clinic back. 08851-8Ocjyqfzaz encounter OycvVW9675-60-35A60:59:56Telephone encounter NoteTXT1.2.840.868062.1.13.104.2.7.2. 737597|[id number] for patient [id number] M [id number] RQXNWKODNZTVWVTCMBQDG6017-71-68Y77:59 :561.2.840.661343.1.72.3.15|1.2.840.1 [id number] 8 Elissa M [facility] 2022-12-30 11:00:00 3414-30-65O64:00:00 Oxygen Rx form received from [employer] and emailed to Dr. Taylor (away from clinic). ALEXEY: 12/15/22NOV: none 97969-2Iquvxatjw encounter MmtaQC3087-63-01T55:01:07Telephone encounter NoteTXT1.2.840.117555.1.13.104.2.7.2. 876799|[id number] for patient [id number] Huckabee [address]STO[id number] SWAGGWGGUGJERLMDWMDKL0465-83-47R25:01 :071.2.840.501727.1.72.3.15|1.2.840.1 58525.1.13.104.2.7.2.727879_[id number] 4 Mi Danielle [facility] 2022-12-29 13:44:30 4215-25-07F45:44:30 Franck Crow is a 82 year old femalePt is calling to speak with provider regarding an appt, Please advise 51811-1Bsnqykldo encounter LiluSW7815-06-85A07:44:52Telephone encounter NoteTXT1.2.840.923429.1.13.104.2.7.2. 813064|[id number] for patient [id number] N [id number] YTIFGXAVXOXMBIUMPOYXE9273-12-08D43:44 :521.2.840.507315.1.72.3.15|1.2.840.1 00569.1.13.104.2.7.2.727879_[id number] 9 Jyoti Abraham [facility] 2022-12-17 11:40:47 9489-03-93M39:40:47 Called patient. The four medications sent to [facility] -- albuterol, Pulmicort, Brovana, and Yupelri are collectively going to cost the patient over $500 monthly. This is not feasible for her and she will need more affordable medications prescribed. ALEXEY: 12/15/22Patient states for now she still has enough medications to last over the weekend. 90771-6Dgizqxrin encounter UshrWJ7774-11-93E07:43:26Telephone encounter NoteTXT1.2.840.460686.1.13.104.2.7.2. 927697|[id number] for patient wlmh91567-2JakoJC395706139Spxfxb Danielle [address] ZafiVzywtcmhkTygalobsoVWKC0015277213K XCWJQWMTUWNXGCPTBSZLM4454-62-75M00:43 :261.2.840.079946.1.72.3.15|1.2.840.1 87691.1.13.104.2.7.2.727879_[id number] 2 Mi Santos RN [facility] 2022-12-17 10:07:52 0335-24-02R18:07:52 Franck Crow is a 82 year old [...] that they would be on file.Please advise 09522-1Qwvfhpkxe encounter PsjsLX1019-13-94S26:11:32Telephone encounter NoteTXT1.2.840.570159.1.13.104.2.7.2. 561404|[id number] for patient xowi55995-5GgnpOG40337417Opslzhgb N [id number] AUFUALAMRXKSZNIOVSKVS6561-68-43E53:11 :321.2.840.949700.1.72.3.15|1.2.840.1 64845.1.13.104.2.7.2.727879_[id number] 5 Lindsey Kaufman [facility] 2022-12-15 16:44:19 2326-11-52R41:44:19 Nebulizer/Medication Order Form and ALEXEY clinical notes faxed to [facility] at [facility]. 30179-1Psjfwpvwl encounter YyhhMD4399-98-30D53:44:58Telephone encounter NoteTXT1.2.840.423524.1.13.104.2.7.2. 040199|[id number] for patient [id number] Huckabee RN[id number] ZLFYZOBSBBCCWKJAPZVMS5677-19-26Y85:44 :581.2.840.828978.1.72.3.15|1.2.840.1 02309.1.13.104.2.7.2.727879_[id number] 9 Mi Santos RN [facility]
[2023-11-06] MEDS ORDERED: ALBUTEROL 2.5 MG/3 ML NEB SOL ONE (12:42)
[2023-11-06] MEDS ORDERED: IPRATROPIUM BROM 0.5MG/2.5ML ONE (12:42)
[2023-11-06] MEDS ORDERED: MAGNESIUM SULFATE 1 gm IVPB 1 GM/100 ML BAG IV ONE (12:43)
[2023-11-06] MEDS ORDERED: LORazepam 2 MG/ML VIAL ONE (12:43)
[2023-11-06] MEDS ORDERED: METHYLPREDNISOLONE 125 MG INJ ONE (12:43)
[2023-11-06 12:48] LABS: Absolute Eosinophils 0.6 K/uL (0-0.5); Absolute Lymphocytes (CBC) 0.4 K/uL (0.7-4.9); Absolute Monocytes 0.7 K/uL (0.1-1.3); Absolute Neutrophil 4.6 K/uL (1.8-8.0); Basophils % 0.5 % (0-1.3); Eosinophils % 9.4 % (0-4.4); Hematocrit 34.5 % (36.0-45.0); Hemoglobin 10.7 g/dL (12.0-15.0); Lymphocytes % 6.9 % (15.3-44.8); MCH 28.2 pg (27.0-35.0); MCHC 31.1 g/dL (32.0-36.0); MCV 90.5 fL (80-100); MPV 7.5 fL (7.6-11.3); Monocytes % 10.8 % (3.3-12.3); Neutrophils % 72.4 % (41.7-73.7); Platelets 224 thou/uL (152-406); RBC Red Blood Cell Count 3.81 M/uL (3.86-4.86); Red Cell Distribution Width 17.2 % (12.1-15.2)
--- NOTE | 2023-11-06 13:04 | RAD REPORT ---
EXAM DESCRIPTION: Almaz Single View11/06/2023 12:53 pm CLINICAL HISTORY: Shortness of breath COMPARISON: October 2023 FINDINGS: Lungs are moderately to markedly hyperaerated. Several small lung nodules are present. Heart is normal size. Lucency upper lateral right lung IMPRESSION: Moderate to marked COPD Several small lung nodules Lucency upper lateral right lung may be secondary to a skin fold or small pneumothorax. It is recomme nded that patient have frontal chest film in expiration for further evaluation
[2023-11-06 13:05] LABS: AST/SGOT 15 U/L (15-37); Albumin 2.5 g/dL (3.4-5.0); Albumin/Globulin Ratio 0.5 (1.1-1.8); Alkaline Phosphatase 82 U/L (45-117); Anion Gap 6.9 mEq/L (5.0-15.0); BUN Blood Urea Nitrogen 17 mg/dL (7-18); Bicarbonate 35 mEq/L (21-32); Bilirubin Total 0.3 mg/dL (0.2-1.0); Globulin 5.1 g/dL (2.3-3.5); Glomerular Filtration Rate 68 ml/min (=/>90); Glucose Level 148 mg/dL (74-106); Potassium 3.9 mEq/L (3.5-5.1); Protein, Total 7.6 g/dL (6.4-8.2); Sodium Level 134 mEq/L (136-145)
[2023-11-06 13:08] LABS: ALT/SGPT < 14 U/L (13-56)
[2023-11-06 13:31] LABS: PTT, Activated Partial Thromb 30.7 SECONDS (24.3-36.9); Protime INR 1.09
[2023-11-06] MEDS ORDERED: NA CHLORIDE 0.9% 1,000 ML ONE (13:53)
--- NOTE | 2023-11-06 14:11 | RAD REPORT ---
EXAM DESCRIPTION: CT - Chest For Pe Angio - 11/06/2023 1:46 pm CLINICAL HISTORY: Chest pain COMPARISON: None. TECHNIQUE: Dynamically enhanced axial 3 mm thick images of the chest were obtained during administra tion of 100 mL Isovue 370 IV contrast. Coronal and oblique reconstruction images were generated and r eviewed. Exam utilizes a protocol for optimal evaluation of pulmonary arterial tree. Maximum intensity projections 3D imaging was utilized All CT scans are performed using dose optimization technique as appropriate and may include automated exposure control or mA/KV adjustment according to patient size. FINDINGS: A pulmonary embolus is not seen. A thoracic aortic aneurysm is not noted. A pleural effusion is not seen. A pericardial effusion is not seen. Moderate to marked centrilobular emphysema. Multiple, bilateral lung nodules. No pneumothorax Mild left hydronephrosis. IMPRESSION: Negative for a pulmonary embolism. Moderate to marked COPD Multiple, bilateral lung nodules may represent metastases
--- NOTE | 2023-11-06 15:47 | ER ---
Nurse's Notes [facility] Name: Liz Crow Age: 83 yrs Sex: Female : 1940 Arrival Date: 11/06/2023 Time: 12:06 Bed 15 Private MD: Diagnosis: COPD/ Chronic obstructive pulmonary disease with (acute) exacerbation Presentation: 11/05 12:15 Chief complaint: EMS states: toned out EMS for SOB. Coronavirus screen: At this rs5 time, the client does not indicate any symptoms associated with coronavirus-19. Ebola Screen: No symptoms or risks identified at this time. Initial Sepsis Screen: Does the patient meet any 2 criteria? RR > 20 per min. HR > 90 bpm. Yes Does the patient have a suspected source of infection? No. Patient's initial sepsis screen is negative. Initial Sepsis Screen: Does the patient meet any 2 criteria?. Risk Assessment: Do you want to hurt yourself or someone else? Patient reports no desire to harm self or others. Onset of symptoms was November 06, 2023. 12:15 Acuity: KEDAR 2 rs5 13:04 Method Of Arrival: EMS: [facility] rs5 Triage Assessment: 12:15 General: Appears in no apparent distress. uncomfortable, Behavior is calm, cooperative. rs5 Historical: - Allergies: 12:15 Pt states she is allergic to something but doesnt know what it is; rs5 - PMHx: 12:15 Bladder cancer; Chronic obstructive lung disease; rs5 - PSHx: 12:15 None; rs5 - Immunization history:: Adult Immunizations up to date. - Infectious Disease History:: Denies. - Social history:: Smoking status: Patient/guardian denies using tobacco, but has a distant history of tobacco abuse. Screenin:15 [facility] ED Fall Risk Assessment (Adult) History of falling in the last 3 months, rs5 including since admission No falls in past 3 months (0 pts) Confusion or Disorientation No (0 pts) Intoxicated or Sedated No (0 pts) Impaired Gait No (0 pts) Mobility Assist Device Used No (0 pt) Altered Elimination No (0 pt) Score/Fall Risk Level 0 - 2 = Low Risk Oriented to surroundings, Maintained a safe environment. Abuse screen: Denies threats or abuse. Nutritional screening: No deficits noted. Tuberculosis screening: No symptoms or risk factors identified. Assessment: 15:29 Reassessment: Patient and/or family updated on plan of care and expected duration. Pain rs5 level reassessed. 15:35 General: Appears distressed, uncomfortable, Behavior is cooperative, anxious. Pain: rs5 Denies pain. Neuro: Level of Consciousness is awake, alert, obeys commands, Oriented to person, place, time, situation. Cardiovascular: Patient's skin is warm and dry. Rhythm is sinus tachycardia. Respiratory: Airway is patent Respiratory effort is even, unlabored, Respiratory pattern is regular, symmetrical. GI: Abdomen is round non-distended, Abd is soft and non tender X 4 quads. : No signs and/or symptoms were reported regarding the genitourinary system. EENT: No signs and/or symptoms were reported regarding the EENT system. Derm: Skin is intact, Skin is pink, warm \T\ dry. Musculoskeletal: Reports general weakness. 15:40 Reassessment: to bedside for breathing treatment . rs5 16:00 Reassessment: No changes from previously documented assessment. Patient and/or family ll1 updated on plan of care and expected duration. Pain level reassessed. Patient is alert, oriented x 3, equal unlabored respirations, skin warm/dry/pink. 16:01 Reassessment: Report given to EMS at bedside for transport. rs5 Vital Signs: 12:15 BP 144 / 82; Pulse 155; Resp 36; Pulse Ox 97% on 10 lpm Non-rebreather mask; rs5 13:03 BP 148 / 87; Pulse 126; Resp 22; Temp 97.9(O); Pulse Ox 98% on 10 lpm Non-rebreather rs5 mask; Weight 43.09 kg; Height 5 ft. 8 in. ; 14:01 BP 144 / 81; Pulse 88; Resp 19; Pulse Ox 91% on 4 lpm NC; rs5 15:55 BP 141 / 91; Pulse 96; Resp 20; Pulse Ox 97% on 4 lpm NC; ll1 13:03 Body Mass Index 14.44 (43.09 kg, 172.72 cm) rs5 ED Course: 12:14 Patient arrived in ED. eb 12:15 No provider procedures requiring assistance completed. rs5 12:15 Patient has correct armband on for positive identification. Placed in gown. Bed in low rs5 position. Call light in reach. Side rails up X2. 12:16 Arm band placed on right wrist. rs5 12:18 Francine Hubbard FNP-C is [facility]. kb 12:18 Anthony Fong MD is Attending Physician. kb 12:35 Andrew Batista, ERASTO is Primary Nurse. rs5 12:55 Chest Single View XRAY In Process Unspecified. EDMS 13:05 Triage completed. rs5 13:47 CT Chest For PE Angio In Process Unspecified. EDMS 14:59 initiated a transfer with Rowan Brewer Rn from the [facility]/. 15:30 administrative approval given by Rowan Brewer Rn/ patient has been accepted to [facility] room 404/ Dr. Radhames Robles has accepted the patient in transfer/ report to be called to [phone]. 15:50 IV discontinued, intact, bleeding controlled, No redness/swelling at site. Pressure rs5 dressing applied. 15:58 Maintain EMS IV. Dressing intact. Good blood return noted. Site clean \T\ dry. Gauge \T\ ll 1 site: 20 L FA. IV is patent, with fluids infusing freely. 16:00 Converted IV to saline lock on. ll1 Administered Medications: 12:40 Drug: Magnesium Sulfate IVPB 1 grams IVPB once over 1 hrs Route: IVPB; Infused Over: 1 rs5 hrs; Site: left forearm; 13:01 Follow up: Response: No adverse reaction rs5 16:04 Follow up: Response: No adverse reaction; IV Status: Completed infusion; IV Intake: 42qvue3 12:40 Drug: MethylPrednisoLONE IVP 125 mg IVP once Route: IVP; Site: left forearm; rs5 13:01 Follow up: Response: No adverse reaction rs5 12:40 Drug: Albuterol Inhalation 2.5 mg Inhalation once Route: Inhalation; rs5 13:01 Follow up: Response: No adverse reaction rs5 12:40 Drug: Ipratropium Inhalation Aerosol 0.5 mg Inhalation once Route: Inhalation; rs5 13:01 Follow up: Response: No adverse reaction rs5 12:40 Drug: Ativan IVP 0.5 mg IVP once Route: IVP; Site: left forearm; rs5 13:01 Follow up: Response: No adverse reaction; Anxiety decreased rs5 13:33 Drug: NS 0.9% IV 1000 ml IV at 1000 ml once Route: IV; Rate: 1000 ml; Site: left rs5 forearm; 13:45 Follow up: Response: No adverse reaction rs5 15:59 Follow up: Response: No adverse reaction; IV Status: Completed infusion; IV converted ll1 to saline lock; IV Intake: 1000ml Medication: 12:20 VIS not applicable for this client. rs5 Intake: 15:59 IV: 1000ml; Total: 1000ml. ll1 16:04 IV: 50ml; Total: 1050ml. ll1 Outcome: 15:46 ER care complete, transfer ordered by . kb 16:07 Transferred by ground EMS [facility], Transfer form completed. ll1 16:07 Transferred Note: report called to ERASTO Sierra at [facility] rm 404 16:07 Condition: stable 16:07 Instructed on the need for transfer, 16:51 Patient left the ED. rs5 Signatures: Dispatcher [employer] EDFrancine Johnson, [employer]BER-Renu Mccord Lynsay, RN RN ll1 Andrew Batista RN RN rs5 Corrections: (The following items were deleted from the chart) 13: 13:04 Chief complaint: EMS states: toned out EMS for SOB rs5 rs5 13: 13:04 Coronavirus screen: At this time, the client does not indicate any symptoms rs5 associated with coronavirus-19. rs5 13: 13:04 Ebola Screen: No symptoms or risks identified at this time. rs5 rs5 13:07 13:04 Initial Sepsis Screen: Does the patient meet any 2 criteria? rs5 rs5 13: 13:04 Initial Sepsis Screen: Does the patient meet any 2 criteria? RR > 20 per min. HR rs5 > 90 bpm. Yes Does the patient have a suspected source of infection? No. Patient's initial sepsis screen is negative. rs5 13:07 13:04 Risk Assessment: Do you want to hurt yourself or someone else? Patient reports no rs5 desire to harm self or others. rs5 13:07 13:04 Onset of symptoms was November 06, 2023 rs5 rs5 13:07 13:04 Method Of Arrival: EMS: [facility] rs5 rs5 13:07 13:04 BP 144 / 82; Pulse 155bpm; Resp 36bpm; Pulse Ox 97% 02 10lpm Non-rebreather mask; rs5 rs5 13:07 13:04 Acuity: KEDAR 2 rs5 rs5 15:08 13:03 BP 148 / 87; Pulse 126bpm; Resp 22bpm; Pulse Ox 98% 02 10lpm Non-rebreather mask; rs5 rs5 15:35 13:03 BP 148 / 87; Pulse 126bpm; Resp 22bpm; Pulse Ox 98% 02 10lpm Non-rebreather mask; rs5 43.09 kg; Height 5 ft. 8 in.; BMI: 14.4; rs5 18:12 15:36 Reassessment: Pt arrived and is on nonrebreather . rs5 rs5 18:13 17:00 IV discontinued, intact, bleeding controlled, No redness/swelling at site. rs5 Pressure dressing applied, rs5 18:14 16:28 Reassessment: Report given to EMS at bedside for transport. rs5 rs5
--- NOTE | 2023-11-06 15:47 | EDPHYS ---
Physician Documentation [facility] Name: Liz Crow Age: 83 yrs Sex: Female : 1940 Arrival Date: 11/06/2023 Time: 12:06 Bed 15 Private MD: ED Physician Anthony Fong HPI: 11/05 15:13 This 83 yrs old Female presents to ER via EMS with complaints of Shortness Of Breath. kb 16:00 Pt is an 83 year old female who presents for shortness of breath that started this kb morning. Pt states she has chronic shortness of breath, but it was worse today. Pt is on 3-4L of home O2 at all times. EMS reports pt's o2 sat was 77% when they arrived on scene. pt was placed on nonrebreather and oxygen increased to 98%. Respirations labored upon arrival to ER, lungs clear bilaterally. Pt denies fever. . Historical: - Allergies: 12:15 Pt states she is allergic to something but doesnt know what it is; rs5 - PMHx: 12:15 Bladder cancer; Chronic obstructive lung disease; rs5 - PSHx: 12:15 None; rs5 - Immunization history:: Adult Immunizations up to date. - Infectious Disease History:: Denies. - Social history:: Smoking status: Patient/guardian denies using tobacco, but has a distant history of tobacco abuse. ROS: 14:50 Constitutional: As per HPI kb Exam: 14:50 Constitutional: This is a well developed, well nourished patient who is awake, alert, kb and in no acute distress. Head/Face: Normocephalic, atraumatic. ENT: Moist Mucous membranes Cardiovascular: Regular rate Abdomen/GI: Soft, non-tender. No distention Back: No spinal tenderness. No costovertebral tenderness. Full range of motion. Skin: Warm, dry with normal turgor. Normal color. MS/ Extremity: Pulses equal, no cyanosis. Neurovascular intact. Full, normal range of motion. Neuro: Awake and alert, GCS 15, oriented to person, place, time, and situation. Moves all extremities. Normal gait. 14:50 Respiratory: moderate respiratory distress is noted, Respirations: labored breathing, that is moderate, Breath sounds: are clear throughout, 15:47 ECG was reviewed by the Attending Physician. kb Vital Signs: 12:15 BP 144 / 82; Pulse 155; Resp 36; Pulse Ox 97% on 10 lpm Non-rebreather mask; rs5 13:03 BP 148 / 87; Pulse 126; Resp 22; Temp 97.9(O); Pulse Ox 98% on 10 lpm Non-rebreather rs5 mask; Weight 43.09 kg; Height 5 ft. 8 in. ; 14:01 BP 144 / 81; Pulse 88; Resp 19; Pulse Ox 91% on 4 lpm NC; rs5 15:55 BP 141 / 91; Pulse 96; Resp 20; Pulse Ox 97% on 4 lpm NC; ll1 13:03 Body Mass Index 14.44 (43.09 kg, 172.72 cm) rs5 MDM: 12:18 Patient medically screened. kb 15:09 Data reviewed: vital signs, nurses notes. kb 15:45 Differential diagnosis: Chronic Obstructive Pulmonary Disease Pneumothorax pulmonary kb edema, Pulmonary Embolism. Consideration of Admission/Observation Escalation of care including admission/observation considered. pt will be transferred. Management of patient was discussed with the following: Dr Robles. Historians other than the Patient: EMS: [facility]. Counseling: I had a detailed discussion with the patient and/or guardian regarding the historical points, exam findings, and any diagnostic results supporting the discharge/admit diagnosis, lab results, radiology results, the need for further work-up and treatment in the hospital. 16:01 ED course: Pt tried Bipap multiple times but unable to tolerate. Nonrebreather left in kb place until medications given. Pt now on 4L O2 via nasal cannula. O2 sat 90-92%. Pt speaking in full sentences without distress. States she is feeling much better. . 11/05 12:19 Order name: Blood Culture Adult (2) 11/05 12:19 Order name: CBC with Diff; Complete Time: 12:54 kb 11/05 12:19 Order name: CMP; Complete Time: 13:13 kb 11/05 12:19 Order name: Lactate w/ 2H reflex if indic.; Complete Time: 13:13 kb 11/05 12:19 Order name: Protime (+inr); Complete Time: 13:36 kb 11/05 12:19 Order name: Ptt, Activated; Complete Time: 13:36 kb 11/05 12:19 Order name: Chest Single View XRAY; Complete Time: 13:05 kb 11/05 12:19 Order name: BIPAP kb 11/05 13:13 Order name: CT Chest For PE Angio; Complete Time: 14:13 kb 11/05 12:19 Order name: EKG; Complete Time: 12:19 kb 11/05 12:19 Order name: Accucheck; Complete Time: 13:59 kb 11/05 12:19 Order name: Cardiac monitoring; Complete Time: 13:59 kb 11/05 12:19 Order name: EKG - Nurse/Tech; Complete Time: 13:59 kb 11/05 12:19 Order name: IV Saline Lock - Large Bore; Complete Time: 13:59 kb 11/05 12:19 Order name: Labs collected and sent; Complete Time: 13:59 kb 11/05 12:19 Order name: O2 Per Protocol; Complete Time: 13:59 kb 11/05 12:19 Order name: O2 Sat Monitoring; Complete Time: 13:59 kb 11/05 12:19 Order name: Vital Signs; Complete Time: 13:59 kb 11/05 12:55 Order name: Labs - recollect needed: recollect labs hemolyzed per sharan; Complete eb Time: 13:02 EC:47 Rate is 125 beats/min. Rhythm is regular. QRS [place] is Normal. MT interval is normal at kb 170 msec. QRS interval is normal at 86 msec. QT interval is normal at 435 msec. Administered Medications: 12:40 Drug: Magnesium Sulfate IVPB 1 grams IVPB once over 1 hrs Route: IVPB; Infused Over: 1 rs5 hrs; Site: left forearm; 13:01 Follow up: Response: No adverse reaction rs5 16:04 Follow up: Response: No adverse reaction; IV Status: Completed infusion; IV Intake: 19nodb0 12:40 Drug: MethylPrednisoLONE IVP 125 mg IVP once Route: IVP; Site: left forearm; rs5 13:01 Follow up: Response: No adverse reaction rs5 12:40 Drug: Albuterol Inhalation 2.5 mg Inhalation once Route: Inhalation; rs5 13:01 Follow up: Response: No adverse reaction rs5 12:40 Drug: Ipratropium Inhalation Aerosol 0.5 mg Inhalation once Route: Inhalation; rs5 13:01 Follow up: Response: No adverse reaction rs5 12:40 Drug: Ativan IVP 0.5 mg IVP once Route: IVP; Site: left forearm; rs5 13:01 Follow up: Response: No adverse reaction; Anxiety decreased rs5 13:33 Drug: NS 0.9% IV 1000 ml IV at 1000 ml once Route: IV; Rate: 1000 ml; Site: left rs5 forearm; 13:45 Follow up: Response: No adverse reaction rs5 15:59 Follow up: Response: No adverse reaction; IV Status: Completed infusion; IV converted ll1 to saline lock; IV Intake: 1000ml Disposition Summary: 11/06/23 15:46 Transfer Ordered Notes: Transfer Location: [facility] Reason: Higher level of care kb Condition: Stable kb Problem: an acute exacerbation kb Symptoms: have improved kb Accepting Physician: Dr Medellin(11/06/23 16:51) rs5 Diagnosis - COPD/ Chronic obstructive pulmonary disease with (acute) exacerbation kb Forms: - Medication Reconciliation Form kb - SBAR form kb Signatures: Dispatcher [employer] EDFrancine Johnson, RAMY-C BANQUET STEWARD-Renu Mccord Ricky RN RN rs5 Arcelia Johnson RN ll1 Corrections: (The following items were deleted from the chart) 16:51 15:46 Dr Medellin kb rs5
[2023-11-06 17:07] VITALS: BP 141/91; TEMP 97.9; O2SAT 97
--- NOTE | 2023-11-09 12:18 | EKG ---
Test Date: 2023-11-06 Test Time: 13:21:28 [employer] Specialist: LYNNETTE MEASUREMENT RESULTS: Intervals: Rate: 126 MA: 178 QRSD: 80 QT: 292 QTc: 422 [place]: P: 85 MA: 178 QRS: 92 T: 93 INTERPRETIVE STATEMENTS: Sinus tachycardia with occasional premature ventricular complexes Septal infarct, age undetermined Abnormal ECG Compared to ECG 10/26/2023 10:45:12 Ventricular premature complex(es) now present Myocardial infarct finding still present Electronically Signed On 11-09-23 12:12:53 CDT by Yimi Espinoza
== END 2023-11-06 16:51 | disposition short-term general hospital (02) ==
LOC: ER 12:06
DX: J44.1 Chronic obstructive pulmonary disease with (acute) exacerbation (principal); Z99.81 Dependence on supplemental oxygen
CPT/HCPCS: 96365; 93005; 87040 ×2; 85025; 36415; 85610; 83605; 85730; 80053; 71275; 71045; 96375; 99285; 96366; 94660; Q9967; J3475; J7613; J7644; J2919; J7030